=== PATIENT | female | born 1935 | race Caucasian/White ===

== ENCOUNTER 2016-11-30 08:00 | Outpatient (CLI) | payer MEDICARE, OTHER | END 2016-11-30 08:01 | disposition home or self-care (01) | DX: R10.9 Unspecified abdominal pain (principal) ==

== ENCOUNTER 2017-03-06 15:01 | Outpatient (CLI) | payer MEDICARE, OTHER | END 2017-03-06 15:02 | disposition home or self-care (01) | LOC: SC 15:01 | PROVIDERS: ATTEND Internal Medicine Pulmonary Disease | DX: G47.33 Obstructive sleep apnea (adult) (pediatric) (principal) | CPT/HCPCS: 99213; G0463; 99212 ==

== ENCOUNTER 2017-07-13 14:08 | Outpatient (CLI) | payer MEDICARE, OTHER | END 2017-07-13 14:09 | disposition home or self-care (01) | LOC: SC 14:08 | PROVIDERS: ATTEND Specialist | DX: G47.33 Obstructive sleep apnea (adult) (pediatric) (principal); R53.83 Other fatigue; G47.10 Hypersomnia, unspecified | CPT/HCPCS: 99213; G0463; 99212 ==

== ENCOUNTER 2017-07-24 10:05 | Outpatient (CLI) | payer MEDICARE, OTHER | END 2017-07-24 10:06 | disposition home or self-care (01) | LOC: SC 10:05 | PROVIDERS: ATTEND Internal Medicine Pulmonary Disease | DX: G47.33 Obstructive sleep apnea (adult) (pediatric) (principal) | CPT/HCPCS: 99213; G0463; 99212 ==

== ENCOUNTER 2019-01-14 13:00 | Outpatient (CLI) | payer MEDICARE, OTHER | END 2019-01-14 13:01 | disposition home or self-care (01) | LOC: SC 13:00 | PROVIDERS: ATTEND Internal Medicine Pulmonary Disease | DX: G47.33 Obstructive sleep apnea (adult) (pediatric) (principal) | CPT/HCPCS: 99213; G0463; 99212 ==

== ENCOUNTER 2019-03-04 11:34 | Outpatient (CLI) | payer MEDICARE, OTHER | END 2019-03-04 11:35 | disposition home or self-care (01) | LOC: SC 11:34 | PROVIDERS: ATTEND Internal Medicine Pulmonary Disease | DX: Z53.9 Procedure and treatment not carried out, unspecified reason (principal) ==

== ENCOUNTER 2019-03-18 | Outpatient (CLI) | payer MEDICARE, OTHER | END 2019-03-18 09:43 | disposition home or self-care (01) | DX: G47.33 Obstructive sleep apnea (adult) (pediatric) (principal) | CPT/HCPCS: 99213; G0463; 99212 ==

== ENCOUNTER 2019-07-09 11:18 | Outpatient (CLI) | payer MEDICARE, OTHER ==
--- NOTE | 2019-07-09 13:48 | Mammography Report ---
Reason: ROUTINE MAMMO Procedure Date: 07/09/2019 Accession Number: [id number] / [id number] Procedure: MGN - Screening Mammo Dig Bilat CPT Code: Final Report FULL RESULT: EXAM: Screening Mammo Dig Bilat DATE: 07/09/2019 11:40 AM CLINICAL HISTORY: The patient is an asymptomatic 83-year-old female presenting for screening mammography. No reported personal nor family history of breast cancer. TECHNIQUE: (B) - Bilateral CC and MLO views were obtained. COMPARISON: 01/06/2009 PARENCHYMAL PATTERN: (D) - The breasts demonstrate heterogeneously dense fibroglandular parenchyma bilaterally. FINDINGS: Pattern of asymmetry is stable given positional variation. Progressive vascular calcifications noted. There are no suspicious masses, calcifications, or areas of distortion. IMPRESSION: Benign findings. BI-RADS category 2. RECOMMENDATION: (ANNUAL) - Recommend routine annual screening mammography. BI-RADS CATEGORY: (2) - Benign Findings. STANDARD QUALIFYING STATEMENTS: 1. This examination was not reviewed with the aid of Computer-Aided Detection (CAD). 2. A negative or benign imaging report should not preclude biopsy if clinically suspicious findings are present. 3. Dense breasts may obscure an underlying neoplasm.
== END 2019-07-09 11:19 | disposition home or self-care (01) ==
LOC: DI.N 11:18
DX: Z12.31 Encounter for screening mammogram for malignant neoplasm of breast (principal)
CPT/HCPCS: 77067

== ENCOUNTER 2019-07-09 13:17 | Outpatient (CLI) | payer MEDICARE, OTHER ==
--- NOTE | 2019-07-10 09:21 | DEXA Report ---
Reason: OSTEOPOROSIS Procedure Date: 07/09/2019 Accession Number: [id number] / [id number] Procedure: DEX - Dexa Spine and/or Hip CPT Code: Final Report FULL RESULT: EXAM: Dexa Spine and/or Hip, Dexa Forearm DATE: 07/09/2019 2:33 PM CLINICAL HISTORY: OSTEOPOROSIS TECHNIQUE: Dual energy x-ray absorptiometry (DXA) was performed on a [employer] System. Regions measured are the AP Spine, femoral neck, and if needed forearm. COMPARISON: None. In accordance with the International Society for Clinical Densitometry (ISCD) guidelines, data from previous exams may be reanalyzed using current recommendations and techniques. This is done to allow a more accurate basis for comparison with the current study. FINDINGS: The data for the lumbar spine is as follows: BMD (g/cm/cm) T-SCORE Z-SCORE REGION L1 0.950 -1.5 0.4 L2 0.964 -2.0 -0.1 L3 1.155 -0.4 1.5 L4 1.500 2.5 4.4 TOTAL 1.141 -0.3 1.5 NOTE: All evaluable vertebrae are used for classification The data for the hip is as follows: BMD (g/cm/cm) T-SCORE Z-SCORE REGION Neck 0.792 -1.8 0.5 TOTAL 0.622 -3.1 -0.9 NOTE: The femoral neck or total proximal femur, whichever is lowest, is used for classification. The data for the left forearm is as follows: BMD (g/cm/cm) T-SCORE Z-SCORE REGION 1/3 0.534 -3.9 -1.0 NOTE: The 33% radius of the nondominant forearm is used for classification. IMPRESSION: THE WHO CLASSIFICATION BASED ON THE INTERNATIONAL REFERENCE STANDARD IS OSTEOPOROSIS, REFERENCE HIP AND FOREARM RESULTS. THE FRACTURE RISK IS HIGH. RECOMMENDATION: Patients with diagnosis of osteoporosis or osteopenia should have regular bone mineral density assessment. For those eligible for Medicare, routine testing is allowed once every 2 years. Testing frequency can be increased for patients who have rapidly progressing disease or for those who are receiving medical therapy to restore bone mass. COMMENT: World Health Organization (WHO) definitions for osteoporosis and osteopenia: NORMAL BMD: T-score at -1.0 or higher, fracture risk is low OSTEOPENIA BMD: T-score between -1.0 and -2.5, fracture risk is increased. OSTEOPOROSIS BMD: T-score at -2.5 or lower, fracture risk is high. National Osteoporosis Foundation recommends: 1. Obtain adequate dietary calcium (at least 1200 mg per day) and vitamin D (400-800 international units per day). 2. Participate, as appropriate, in regular weightbearing and muscle-strengthening exercise. 3. Avoid tobacco use and reduce alcohol and caffeine intake. 4. For more detailed information see the website at www.NOF.org.
--- NOTE | 2019-07-10 09:21 | DEXA Report ---
Reason: Osteoporosis Procedure Date: 07/09/2019 Accession Number: [id number] / [id number] Procedure: DEX - Dexa Forearm CPT Code: Final Report FULL RESULT: EXAM: Dexa Spine and/or Hip, Dexa Forearm DATE: 07/09/2019 2:33 PM CLINICAL HISTORY: OSTEOPOROSIS TECHNIQUE: Dual energy x-ray absorptiometry (DXA) was performed on a [facility]. Regions measured are the AP Spine, femoral neck, and if needed forearm. COMPARISON: None. In accordance with the International Society for Clinical Densitometry (ISCD) guidelines, data from previous exams may be reanalyzed using current recommendations and techniques. This is done to allow a more accurate basis for comparison with the current study. FINDINGS: The data for the lumbar spine is as follows: BMD (g/cm/cm) T-SCORE Z-SCORE REGION L1 0.950 -1.5 0.4 L2 0.964 -2.0 -0.1 L3 1.155 -0.4 1.5 L4 1.500 2.5 4.4 TOTAL 1.141 -0.3 1.5 NOTE: All evaluable vertebrae are used for classification The data for the hip is as follows: BMD (g/cm/cm) T-SCORE Z-SCORE REGION Neck 0.792 -1.8 0.5 TOTAL 0.622 -3.1 -0.9 NOTE: The femoral neck or total proximal femur, whichever is lowest, is used for classification. The data for the left forearm is as follows: BMD (g/cm/cm) T-SCORE Z-SCORE REGION 1/3 0.534 -3.9 -1.0 NOTE: The 33% radius of the nondominant forearm is used for classification. IMPRESSION: THE WHO CLASSIFICATION BASED ON THE INTERNATIONAL REFERENCE STANDARD IS OSTEOPOROSIS, REFERENCE HIP AND FOREARM RESULTS. THE FRACTURE RISK IS HIGH. RECOMMENDATION: Patients with diagnosis of osteoporosis or osteopenia should have regular bone mineral density assessment. For those eligible for Medicare, routine testing is allowed once every 2 years. Testing frequency can be increased for patients who have rapidly progressing disease or for those who are receiving medical therapy to restore bone mass. COMMENT: World Health Organization (WHO) definitions for osteoporosis and osteopenia: NORMAL BMD: T-score at -1.0 or higher, fracture risk is low OSTEOPENIA BMD: T-score between -1.0 and -2.5, fracture risk is increased. OSTEOPOROSIS BMD: T-score at -2.5 or lower, fracture risk is high. National Osteoporosis Foundation recommends: 1. Obtain adequate dietary calcium (at least 1200 mg per day) and vitamin D (400-800 international units per day). 2. Participate, as appropriate, in regular weightbearing and muscle-strengthening exercise. 3. Avoid tobacco use and reduce alcohol and caffeine intake. 4. For more detailed information see the website at www.NOF.org.
== END 2019-07-09 13:18 | disposition home or self-care (01) ==
LOC: DI 13:17
PROVIDERS: ATTEND Physician Assistant Medical
DX: M81.0 Age-related osteoporosis without current pathological fracture (principal)
CPT/HCPCS: 77080; 77081

== ENCOUNTER 2020-03-17 14:05 | Outpatient (CLI) | payer MEDICARE, OTHER ==
--- NOTE | 2020-03-17 14:45 | SLEEP CARE CONSULTATION ---
Information from patient questionnaire entered by Rosie Christy. I have reviewed and concur with the information entered by Rosie Christy. This document represents the service I personally performed and the decisions made by me, Daniel Marquis MD, [facility]. History of Present Illness Service Date and Time: 03/17/2020 1405 Previous diagnosis: Mild, Obstructive Sleep Apnea-Hypopnea Syndrome AHI: 5.6 Reason for follow up: annual Equipment type: CPAP Last cushion change: HPI: Mrs. Devi returned today for an annual follow up of nasal CPAP the [facility]: Yes [facility] [place], [place] Type of Sleep Study: Home sleep study CPAP Compliance Data - Data Reviewed with Patient Average duration of nightly device use: 6h 26m Compliance rate %: 93.9 Current pressure setting (cmH2O): 4-6 Humidity settin Heated hose settin Average residual AHI: 4.7 Average large leak: 56s Subjective Initial [place] Sleepiness Scale score: 8 Allergies and Home Medications Drug allergies reviewed: Yes Home medication list reviewed: Yes Review of Systems Review of systems same as previous: Yes Impression and Plan 1. Obstructive Sleep Apnea-Hypopnea Syndrome, severe (AHI was 50), with the patient doing well on the nasal CPAP therapy. She continues to have excellent c ompliance and significant clinical improvement. The current pressure appears effective and comfortable. Overall, she is very satisfied with treatment and plans to continue with it long-term. For her nasal congestion, I recommend turning up the heated humidifier. PLAN: 1. Continue with autoCPAP set at 4 6 cmH2O. 2. Try the new ResMed N30i mask. 3. Use the heated humidifier to relieve nasal congestion. 3. Return in one year for follow up or earlier if there is any problem with the treatment. Visit Type: In Office Time Spent with Patient (minutes): 15 Provider Statement: I spent 100% of the Face to Face Visit with the patient with greater than 50% spent counseling the patient and coordination of care.
== END 2020-03-17 14:06 | disposition home or self-care (01) ==
LOC: SC 14:05
PROVIDERS: ATTEND Internal Medicine Pulmonary Disease
DX: G47.33 Obstructive sleep apnea (adult) (pediatric) (principal)
CPT/HCPCS: 99213; G0463; 99212

== ENCOUNTER 2021-04-05 11:09 | Outpatient (CLI) | payer MEDICARE, OTHER ==
--- NOTE | 2021-04-05 12:52 | SLEEP CARE CONSULTATION ---
Information from patient questionnaire entered by Xuan Lopez. I have reviewed and concur with the information entered by Xuan Lopez. This document represents the service I personally performed and the decisions made by me, Daniel Marquis MD, [facility]. History of Present Illness Service Date and Time: 04/05/2021 1109 Previous diagnosis: Mild, Obstructive Sleep Apnea-Hypopnea Syndrome AHI: 5.6 (in 2018) Reason for follow up: annual (last seen 03/2020) Equipment type: CPAP Equipment obtained from: [employer] Mask style: Nasal Mask brand: Respironics (Wisp) Prior sleep studies: Yes Year and Where: 2018 - [facility]; 2005 - in [facility] additional information: HPI: Mrs. Devi returned today for an annual follow up of nasal CPAP therapy. She also has questions regarding the recall. She was diagnosed to have mild obstructive sleep apnea-hypopnea syndrome (AHI was 5.6 by a home sleep apnea test). The patient wears with a Respironics DreamWear nasal cushion mask. She continues to use the device nightly and all through the night. She complained of nasal congestion. Her heated humidifier is set at zero. She thinks that the pressure of 4 6 cmH2O is comfortable. On the CPAP therapy she notices improvement in her sleep quality, and that she wakes up feeling fresher in the morning and more awake/alert during the day. The [place] Sleepiness Scale score 8. Her notices no snore at all. The average residual AHI is 3.1; and average time in large leak per day is 9 seconds. The 90th percentile pressure is 6.0 cmH2O. CPAP Compliance Data - Data Reviewed with Patient Average duration of nightly device use: 6 hr 59 min Compliance rate %: 93.3 (180 days) Current pressure setting (cmH2O): 4-6 Humidity settin Heated hose settin Average residual AHI: 3.1 Average large leak: 9 sec Subjective Patient concerns: reports: nasal congestion, dry mouth, nose, throat, other (headache) Initial [place] Sleepiness Scale score: 8 (in 2014) Current [place] Sleepiness Scale score: 10 Allergies and Home Medications Drug allergies reviewed: Yes Home medication list reviewed: Yes Review of Systems Review of systems same as previous: Yes Physical Exam Weight: 140 lb Impression and Plan 1. Obstructive Sleep Apnea-Hypopnea Syndrome, severe (AHI was 5.6), with the patient doing well on the nasal CPAP therapy. She continues to have excellent compliance and significant clinical improvement. The current pressure appears effective and comfortable. Overall, she is very satisfied with treatment and plans to continue with it long-term. Rosita said she called Medicare and was told that it will pay for a new machine to replace the DreamStation Auto that she is using. PLAN: 1. Continue with autoCPAP set at 4 6 cmH2O. 2. Prescription made for a ResMed device. 3. Return for follow up after one month of using the CPAP. Visit Type: In Office Time Spent with Patient (minutes): 15 Provider Statement: I spent 100% of the Face to Face Visit with the patient with greater than 50% spent counseling the patient and coordination of care.
== END 2021-04-05 11:10 | disposition home or self-care (01) ==
LOC: SC 11:09
PROVIDERS: ATTEND Internal Medicine Pulmonary Disease
DX: G47.33 Obstructive sleep apnea (adult) (pediatric) (principal)
CPT/HCPCS: 99212; G0463

== ENCOUNTER 2021-06-04 12:44 | Outpatient (CLI) | payer MEDICARE, OTHER ==
--- NOTE | 2021-06-04 13:57 | XRAY Report ---
PROCEDURE: Chest 2 View X-Ray INDICATIONS: COUGH TECHNIQUE: 2 view(s) of the chest. COMPARISON: January 26, 2018. FINDINGS: SUPPORT DEVICES: None. LUNG/PLEURA: Biapical pleural thickening/scarring. Coarsened interstitial markings. Faint density in the right lower lung zone, concerning for pneumonic infiltrate or atelectasis. No pleural effusion or space-occupying pneumothorax. MEDIASTINUM: Retrocardiac density with air-fluid level, compatible with large head hernia. BONES/SOFT TISSUES: No acute abnormality. IMPRESSION: 1.Faint density in the right lower lung zone, concerning for pneumonic infiltrate or atelectasis. Reviewed by: Lalit May MD on 06/04/2021 1:56 PM PDT Approved by: Lalit May MD on 06/04/2021 1:56 PM PDT Station ID: [id number]
== END 2021-06-04 12:45 | disposition home or self-care (01) ==
LOC: DI.N 12:44
PROVIDERS: ATTEND Physician Assistant Medical
DX: R91.8 Other nonspecific abnormal finding of lung field (principal)

== ENCOUNTER 2021-07-05 12:38 | Outpatient (CLI) | payer MEDICARE, OTHER ==
[2021-07-05 13:28] VITALS: BP 140/74
--- NOTE | 2021-07-05 13:28 | SLEEP CARE CONSULTATION ---
Information from patient questionnaire entered by Jacquelyn Coy MA. I have reviewed and concur with the information entered by Jacquelyn Coy MA. This document represents the service I personally performed and the decisions made by me, Daniel Marquis MD, [facility]. History of Present Illness Service Date and Time: 07/05/2021 1238 Previous diagnosis: Mild, Obstructive Sleep Apnea-Hypopnea Syndrome AHI: 5.6 (in 2018) Reason for follow up: first compliance (05/21/2021 set up date) Equipment type: CPAP Equipment obtained from: [employer] Mask style: Nasal (wisp) Prior sleep studies: Yes Year and Where: 2018 - [facility]; 2004 - in [place], [place] HPI additional information: Mrs. Devi returned today for a follow up of nasal CPAP therapy. She also has questions regarding the recall. She was diagnosed to have mild obstructive sleep apnea-hypopnea syndrome (AHI was 5.6 by a home sleep apnea test). The patient recently acquired a new ResMed AirSense 10 from [employer]. She wears with a Respironics DreamWear nasal cushion mask. She uses the device nightly and all through the night. The compliance data show usage in 30 out of the past 30 nights, averaging 6.1 hours a night. The residual AHI is 0.8 and average air leak is 3.9 L/minute. She thinks that the pressure of 4 6 cmH2O is comfortable. On the CPAP therapy she notices improvement in her sleep quality, and that she wakes up feeling fresher in the morning and more awake/alert during the day. The [place] Sleepiness Scale score 11. Her notices no snore at all. Sleep Study - Results Prior sleep studies: Yes Year and Where: 2018 - [facility]; 2004 - in [place], [place] Subjective Patient concerns: reports: dry mouth, nose, throat Initial [place] Sleepiness Scale score: 8 (in 2014) Current [place] Sleepiness Scale score: 11 (in 2020) Allergies and Home Medications Drug allergies reviewed: Yes Home medication list reviewed: Yes Review of Systems Review of systems same as previous: Yes Physical Exam Vital signs obtained and entered by: RIDDHI CHRISTOPHER Blood Pressure: 140/74 (left) Cuff size: wrist Heart Rate: 86 O2 Saturation: 94 (with mask) Height: 5 ft 7 in Weight: 297 lb 9.985 oz (with winter clothes) Body Mass Index: 46.6 BMI Classification: Morbidly Obese Impression and Plan 1. Obstructive Sleep Apnea-Hypopnea Syndrome, mild (AHI was 5.6), with the patient doing well on her new machine. She continues to have excellent compliance and significant clinical improvement. The current pressure appears effective and comfortable. Overall, she is very satisfied with treatment and plans to continue with it long-term. PLAN: 1. Continue with autoCPAP set at 4 6 cmH2O. 2. Return for follow up after one month of using the CPAP. This visit is time-based and I spent 15 minutes with the patient and more than 50% of the time was spent counseling the patient. Follow up with Sleep Care in: 1 year Time Spent with Patient (minutes): 15
== END 2021-07-05 12:39 | disposition home or self-care (01) ==
LOC: SC 12:38
PROVIDERS: ATTEND Internal Medicine Pulmonary Disease
DX: G47.33 Obstructive sleep apnea (adult) (pediatric) (principal); E66.01 Morbid (severe) obesity due to excess calories; Z68.42 Body mass index [BMI] 45.0-49.9, adult
CPT/HCPCS: 99212; G0463

== ENCOUNTER 2021-10-25 12:20 | Outpatient (CLI) | payer MEDICARE, OTHER ==
--- NOTE | 2021-10-25 13:32 | DEXA Report ---
PROCEDURE: Dexa Spine and/or Hip INDICATIONS: OSTEOPOROSIS TECHNIQUE: Dual energy x-ray absorptiometry (DXA) was performed on a [employer] System. Regions measur ed are the AP Spine, femoral neck, and if needed forearm. COMPARISON: 07/09/2019. FINDINGS: Forearm was evaluated due to excessive spinal densities. Lumbar Spine: Bone Mineral Density 1.190 g/cm/cm,T score 0.1. There is interval 4.3% increase in total lumbar sp ine bone mineral density. Right Hip: Bone Mineral Density 0.684 g/cm/cm,T score -2.6. There is interval 10% increase in total right hip b one mineral density. Right Femoral Neck: Bone Mineral Density 0.708 g/cm/cm, T score -2.4. Left forearm: Bone Mineral Density 0.490 g/cm/cm, T score -4.4. There is interval 8.2% decrease in left forearm bon e mineral density. (T score greater or equal to -1.0: NORMAL) (T score from -1.1 to -2.4: OSTEOPENIA) (T score less than or equal to -2.5 to: OSTEOPOROSIS) Impression: Osteoporosis. Patients with diagnosis of osteoporosis or osteopenia should have regular bone mineral density assess ment. For those eligible for Medicare, routine testing is allowed once every 2 years. Testing frequ ency can be increased for patients who have rapidly progressing disease or for those who are receivin g medical therapy to restore bone mass. Reviewed by: Cornel Mcghee MD on 10/25/2021 1:30 PM PDT Approved by: Cornel Mcghee MD on 10/25/2021 1:30 PM PDT Station ID: [id number]
== END 2021-10-25 12:21 | disposition home or self-care (01) ==
LOC: DI 12:20
PROVIDERS: ATTEND Physician Assistant Medical
DX: M81.0 Age-related osteoporosis without current pathological fracture (principal); R93.7 Abnormal findings on diagnostic imaging of other parts of musculoskeletal system

== ENCOUNTER 2022-01-24 11:00 | Outpatient (CLI) | payer MEDICARE, OTHER | END 2022-01-24 23:59 | disposition home or self-care (01) | LOC: LAB.N 11:00 | PROVIDERS: ATTEND Physician Assistant Medical | DX: R19.7 Diarrhea, unspecified (principal) | CPT/HCPCS: 87045; 87046; 87177; 87328; 87427; 87493 ==

== ENCOUNTER 2022-01-24 14:05 | Outpatient (CLI) | payer MEDICARE, OTHER | END 2022-01-24 14:06 | disposition home or self-care (01) | LOC: LAB.R 14:05 | PROVIDERS: ATTEND Physician Assistant Medical | DX: R19.7 Diarrhea, unspecified (principal) ==

== ENCOUNTER 2022-01-25 17:35 | Outpatient (CLI) | payer MEDICARE, OTHER ==
[2022-01-25 20:55] LABS: BASOPHILS # (AUTO) 0.1 10^3/uL (0.0-0.1); BASOPHILS % (AUTO) 0.7 %; EOSINOPHILS # (AUTO) 0.4 10^3/uL (0.0-0.7); EOSINOPHILS % (AUTO) 2.3 %; HCT - HEMATOCRIT 36.6 % (37.0-47.0); HGB - HEMOGLOBIN 12.1 g/dL (12.0-16.0); LYMPHOCYTES # (AUTO) 2.2 10^3/uL (1.5-3.5); LYMPHOCYTES % (AUTO) 11.8 %; MEAN CORPUSCULAR HEMOGLOBIN 30.9 pg (27.0-31.0); MEAN CORPUSCULAR HGB CONC 33.1 g/dL (32.0-36.0); MEAN CORPUSCULAR VOLUME 93.6 fL (81.0-99.0); MEAN PLATELET VOLUME 9.9 fL (7.9-10.8); MONOCYTES # (AUTO) 1.3 10^3/uL (0.0-1.0); MONOCYTES % (AUTO) 6.8 %; NEUTROPHILS # (AUTO) 14.8 10^3/uL (1.5-6.6); NEUTROPHILS % (AUTO) 77.9 %; PLT - PLATELET COUNT 288 10^3/uL (130-450); RED BLOOD COUNT 3.91 10^6/uL (4.20-5.40)
[2022-01-25 21:09] LABS: % IRON SATURATION 15 % (20-50); ALBUMIN 4.1 g/dL (3.2-5.5); ALBUMIN/GLOBULIN RATIO 0.9 (1.0-2.2); ALKALINE PHOSPHATASE 27 IU/L (42-121); ALT ALANINE AMINOTRANSFERASE 19 IU/L (10-60); AST ASPARTATE AMINOTRANSFERASE 22 IU/L (10-42); BILIRUBIN,TOTAL 0.6 mg/dL (0.2-1.0); BUN - BLOOD UREA NITROGEN 20 mg/dL (6-20); CARBON DIOXIDE - CO2 26 mmol/L (21-32); CHLORIDE 95 mmol/L (101-111); CREATININE 0.7 mg/dL (0.4-1.0); GFR - MDRD 80 (>89); GLUCOSE 125 mg/dL (70-100); IRON 46 ug/dL (28-170); POTASSIUM 4.5 mmol/L (3.5-5.0); SODIUM 132 mmol/L (135-145); TOTAL IRON BINDING CAPACITY 300 ug/dL (250-450); TOTAL PROTEIN 8.8 g/dL (6.7-8.2); TRANSFERRIN 214 mg/dL (192-382)
[2022-01-25 21:23] LABS: CRP - C-REACTIVE PROTEIN < 1.0 mg/dL (0-1.0)
== END 2022-01-25 17:36 | disposition home or self-care (01) ==
LOC: LAB.N 17:35
PROVIDERS: ATTEND Physician Assistant Medical
DX: D64.9 Anemia, unspecified (principal); R19.7 Diarrhea, unspecified; R06.09 Other forms of dyspnea
CPT/HCPCS: 36415; 80053; 82728; 83540; 83880; 84466; 85025; 85651; 86140

== ENCOUNTER 2022-01-25 17:41 | Outpatient (CLI) | payer MEDICARE, OTHER ==
--- NOTE | 2022-01-25 19:07 | XRAY Report ---
PROCEDURE: Chest 2 View X-Ray INDICATIONS: DYSPNEA ON EXERTION TECHNIQUE: 2 views of the chest. COMPARISON: Chest radiographs 06/04/2021. FINDINGS: Surgical changes and devices: None. Lungs and pleura: Large air-filled hiatal hernia is seen projecting over the hardware. Diffuse bilate ral interstitial opacities are seen bilaterally. The costophrenic angles are not well-defined, and Mediastinum: Mediastinal contours are normal. Heart size is normal. Bones and chest wall: No suspicious bony abnormalities. Soft tissues appear unremarkable. Small pl eural effusions could be present. Generalized osteopenia with mild exaggerated kyphosis. Severe degen erative changes are seen in the shoulders IMPRESSION: 1.Diffuse interstitial prominence in both lungs may represent edema, chronic interstitial lung diseas e, or possibly an atypical or viral infection. 2.Questionable trace pleural effusions. 3.Large air-filled hiatal hernia. Reviewed by: Rell Lang MD on 01/25/2022 7:05 PM PDT Approved by: Rell Lang MD on 01/25/2022 7:05 PM PDT Station ID: [id number]
== END 2022-01-25 17:42 | disposition home or self-care (01) ==
LOC: DI.N 17:41
PROVIDERS: ATTEND Physician Assistant Medical
DX: R91.8 Other nonspecific abnormal finding of lung field (principal); R06.09 Other forms of dyspnea; K44.9 Diaphragmatic hernia without obstruction or gangrene; D64.9 Anemia, unspecified; R19.7 Diarrhea, unspecified
CPT/HCPCS: 36415; 80053; 82728; 83540; 83880; 84466; 85025; 85651; 86140

== ENCOUNTER 2022-02-10 13:58 | Outpatient (CLI) | payer MEDICARE, OTHER ==
[2022-02-10 14:17] LABS: BASOPHILS # (AUTO) 0.1 10^3/uL (0.0-0.1); BASOPHILS % (AUTO) 0.8 %; EOSINOPHILS # (AUTO) 0.4 10^3/uL (0.0-0.7); EOSINOPHILS % (AUTO) 2.6 %; HGB - HEMOGLOBIN 12.1 g/dL (12.0-16.0); LYMPHOCYTES # (AUTO) 2.5 10^3/uL (1.5-3.5); LYMPHOCYTES % (AUTO) 15.5 %; MEAN CORPUSCULAR HEMOGLOBIN 31.3 pg (27.0-31.0); MEAN CORPUSCULAR HGB CONC 33.6 g/dL (32.0-36.0); MEAN CORPUSCULAR VOLUME 93.3 fL (81.0-99.0); MEAN PLATELET VOLUME 8.8 fL (7.9-10.8); MONOCYTES # (AUTO) 1.5 10^3/uL (0.0-1.0); NEUTROPHILS # (AUTO) 11.7 10^3/uL (1.5-6.6); NEUTROPHILS % (AUTO) 71.4 %; PLT - PLATELET COUNT 277 10^3/uL (130-450); RED BLOOD COUNT 3.86 10^6/uL (4.20-5.40); RED CELL DISTRIBUTION WIDTH 14.5 % (12.0-15.0); WHITE BLOOD COUNT 16.4 x10^3/uL (4.8-10.8)
--- NOTE | 2022-02-10 17:52 | XRAY Report ---
PROCEDURE: Chest 2 View X-Ray INDICATIONS: PNEUMONIA TECHNIQUE: 2 view(s) of the chest. COMPARISON: 02/24/2022 FINDINGS: Surgical changes and devices: None. Lungs and pleura: No pleural effusions or pneumothorax. Diffuse interstitial reticular pattern to parish th lungs noted. Diffuse chronic interstitial changes. Mediastinum: Mediastinal contours are normal. Heart size is normal. Large hiatal hernia with air-f luid level noted Bones and chest wall: Generalized decreased osseous mineralization present. Degenerative changes note d in both glenohumeral joints. IMPRESSION: 1. Stable diffuse reticular interstitial pattern noted. Differential considerations include pulmonary edema, interstitial pneumonitis, unchanged from the prior 2. Large hiatal hernia and degenerative osteoarthritis. 3. Osteopenia Reviewed by: Fernando Rivas MD on 02/10/2022 4:51 PM AKDT Approved by: Fernando Rivas MD on 02/10/2022 4:51 PM AKDT Station ID: [id number]
[2022-02-10 20:29] LABS: ESTIMATED AVERAGE GLUCOSE 171 mg/dL (70-100); HEMOGLOBIN A1c% 7.6 % (4.27-6.07)
== END 2022-02-10 13:59 | disposition home or self-care (01) ==
LOC: DI 13:58
PROVIDERS: ATTEND Nurse Practitioner
DX: J18.9 Pneumonia, unspecified organism (principal); E11.9 Type 2 diabetes mellitus without complications; K44.9 Diaphragmatic hernia without obstruction or gangrene; M19.012 Primary osteoarthritis, left shoulder; M19.011 Primary osteoarthritis, right shoulder; M85.80 Other specified disorders of bone density and structure, unspecified site
CPT/HCPCS: 36415; 83036; 85025

== ENCOUNTER 2022-07-18 13:40 | Outpatient (CLI) | payer MEDICARE, OTHER ==
[2022-07-18 19:22] VITALS: BP 140/90
--- NOTE | 2022-07-18 19:22 | SLEEP CARE CONSULTATION ---
Information from patient questionnaire entered by Jose Landers. I have reviewed and concur with the information entered by Jose Landers. This document represents the service I personally performed and the decisions made by me, Daniel Marquis MD, [facility]. History of Present Illness Service Date and Time: 07/18/2022 1340 Previous diagnosis: Mild, Obstructive Sleep Apnea-Hypopnea Syndrome AHI: 5.6 (in 2019) Reason for follow up: annual (LAST SEEN 06/2021) Equipment type: CPAP (RESMED) Equipment obtained from: [employer] Mask style: Nasal (wisp) Prior sleep studies: Yes [facility]; [facility] - in [facility] additional information: Mrs. Devi returned today for an annual follow up of nasal CPAP therapy. She also has questions regarding the recall. She was diagnosed to have mild obstructive sleep apnea-hypopnea syndrome (AHI was 5.6 by a home sleep apnea test). The patient recently acquired a new ResMed AirSense 10 from [employer]. She wears a Respironics Wisp nasal mask. She uses the device nightly and all through the night. The compliance data show usage in 180 out of the past 180 nights, averaging 6.6 hours a night. The residual AHI is 0.9 and average air leak is 5.8 L/minute. She thinks that the pressure of 4 6 cmH2O is comfortable. On the CPAP therapy she notices improvement in her sleep quality, and that she wakes up feeling fresher in the morning and more awake/alert during the day. The [place] Sleepiness Scale score 15. Her notices no snore at all. She is now using oxygen at night for pulmonary fibrosis. Sleep Study - Results Prior sleep studies: Yes Year and Where[facility]; [facility] - in [place], [place] Subjective Initial [place] Sleepiness Scale score: 8 (in 2014) Allergies and Home Medications Drug allergies reviewed: Yes Home medication list reviewed: Yes Review of Systems Review of systems same as previous: Yes Physical Exam Vital signs obtained and entered by: JOSE Napier MA Blood Pressure: 140/90 (LEFT ARM) Cuff size: regular Heart Rate: 117 O2 Saturation: 95 Height: 5 ft 7 in Weight: 141 lb 9.6 oz Body Mass Index: 22.1 BMI Classification: Normal Impression and Plan 1. Obstructive Sleep Apnea-Hypopnea Syndrome, mild (AHI was 5.6), with the patient doing well on her new machine. She continues to have excellent compliance and significant clinical improvement. The current pressure appears effective and comfortable. Overall, she is very satisfied with treatment and plans to continue with it long-term. PLAN: 1. Continue with autoCPAP set at 4 6 cmH2O + oxygen at night. 2. Return for follow up in a year or earlier if there is any problem. Continue with device pressure at (cmH2O): 4 - 6 cmH20 Follow up with Sleep Care in: 1 year Time Spent with Patient (minutes): 15
== END 2022-07-18 13:41 | disposition home or self-care (01) ==
LOC: SC 13:40
PROVIDERS: ATTEND Internal Medicine Pulmonary Disease
DX: G47.33 Obstructive sleep apnea (adult) (pediatric) (principal)
CPT/HCPCS: 99213; G0463; 99212

== ENCOUNTER 2022-10-30 12:26 | Emergency (ER) | payer MEDICARE, OTHER ==
--- OUTSIDE RECORDS SUMMARY | 2022-10-30 13:01 | EXTERNAL MEDICAL SUMMARY RPT | Continuity of Care Document ---
:1935 Author Organization [facility] Address [address] [place] [address] Phone Care Team Providers Name Role Phone Unavailable Unavailable Unavailable Yaima Bustos Unavailable Unavailable Allergies and Intolerances date description facility type (no date) Mild [facility] (unknown) (no date) Odfyuhc-[id number] Reductase Inhibitor [facility] (unknown) (no date) alendronate sodium [facility] (unknown) (no date) ezetimibe [facility] (unknown) (no date) omeprazole [facility] (unknown) (no date) tramadol [facility] (unknown) Encounters No information. Functional Status No information. Immunizations No information. Medications date description facility 2022-09-26 00:00 Glimepiride [facility] 2022-09-26 00:00 Pantoprazole [facility] 2022-08-24 00:00 Hydrocodone-Acetaminophen [facility] 2022-10-26 00:00 Metoprolol Succinate [facility] 2022-10-26 00:00 Metoprolol Ta-Hydrochlorothiaz [facility] 2022-09-26 00:00 Alendronate [facility] 2022-10-26 00[facility]22[facility]:00 Losartan [facility] Problems date description facility 2022-09-15 00:00 [facility]ra[facility]ricular [facility] 2022-09-26 00:00 Type 2 diabetes mellitus without compli cation, [facility] 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 insulin use 2022-09-28 00:00 Chest pain [facility] Procedures date description facility 2022-09-28 00:00 Single photon emission computed tomograp [facility] (SPECT) resting and stress myocardial pe rf 2022-09-28 00:00 X-ray of chest, single view [facility] 2022-09-28 00:00 Complete Doppler echocardiography [facility] 2022-09-28 00:00 CT chest w [facility] Results/Labs test date author facility value unit interpret ation Result panel 1 (unknown) (no date[facility]) Result panel 2 (unknown) (no date) (unknown[facility] Result panel 3 (unknown) (no date) (unknown[facility] Result panel 4 (unknown) (no date) (unknown[facility] Result panel 5 (unknown) (no date) (unknown[facility] Result panel 6 (unknown) (no date) (unknown[facility] Result panel 7 (unknown) (no date) (unknown[facility] Result panel 8 (unknown) (no date) (unknown[facility] Result panel 9 (unknown) (no date) (unknown[facility] Result panel 10 (unknown) (no date) (unknown[facility] Result panel 11 (unknown) (no date) (unknown[facility] Result panel 12 (unknown) (no date) (unknown[facility] Result panel 13 (unknown) (no date) (unknown[facility] Result panel 14 (unknown) (no date) (unknown[facility] Result panel 15 (unknown) (no date) (unknown[facility] Result panel 16 (unknown) (no date) (unknown[facility] Result panel 17 (unknown) (no date) (unknown[facility] Result panel 18 (unknown) (no date) (unknown[facility] Result panel 19 (unknown) (no date) (unknown[facility]) Result panel 20 (unknown) (no date) (unknown[facility] Result panel 21 (unknown) (no date) (unknown[facility]) Result panel 22 (unknown) (no date) (unknown[facility] Result panel 23 (unknown) (no date) (unknown[facility] Result panel 24 (unknown) (no date) (unknown[facility]) Result panel 25 (unknown) (no date) (unknown[facility]) Result panel 26 (unknown) (no date) (unknown[facility] Result panel 27 (unknown) (no date) (unknown[facility]) Result panel 28 (unknown) (no date) (unknown[facility] Result panel 29 (unknown) (no date) (unknown[facility]) Result panel 30 (unknown) (no date) (unknown[facility] Result panel 31 (unknown) (no date) (unknown[facility]) Result panel 32 (unknown) (no date) (unknown[facility] Result panel 33 (unknown) (no date) (unknown[facility] Result panel 34 (unknown) (no date) (unknown[facility]) Result panel 35 (unknown) (no date) (unknown[facility] Result panel 36 (unknown) (no date) (unknown[facility]) Result panel 37 (unknown) (no date) (unknown[facility]) Result panel 38 (unknown) (no date) (unknown[facility] Result panel 39 (unknown) (no date) (unknown[facility]) Result panel 40 (unknown) (no date) (unknown[facility]) Result panel 41 (unknown) (no date) (unknown[facility] Result panel 42 (unknown) (no date) (unknown[facility]) Result panel 43 (unknown) (no date) (unknown[facility]) Result panel 44 (unknown) (no date) (unknown[facility]) Result panel 45 (unknown) (no date) (unknown[facility]) Result panel 46 (unknown) (no date) (unknown[facility]) Result panel 47 (unknown) (no date) (unknown[facility]) Result panel 48 (unknown) (no date) (unknown[facility]) Result panel 49 (unknown) (no date) (unknown[facility]) Result panel 50 (unknown) (no date) (unknown[facility]) Result panel 51 (unknown) (no date) (unknown[facility] Result panel 52 (unknown) (no date) (unknown[facility]) Result panel 53 (unknown) (no date) (unknown[facility]) Result panel 54 (unknown) (no date) (unknown[facility] Result panel 55 (unknown) (no date) (unknown[facility]) Result panel 56 (unknown) (no date) (unknown[facility] Result panel 57 (unknown) (no date) (unknown[facility]) Result panel 58 (unknown) (no date) (unknown[facility] Result panel 59 (unknown) (no date) (unknown[facility]) Result panel 60 (unknown) (no date) (unknown[facility] Result panel 61 (unknown) (no date) (unknown[facility]) Result panel 62 (unknown) (no date) (unknown[facility]) Result panel 63 (unknown) (no date) (unknown[facility]) Result panel 64 (unknown) (no date) (unknown[facility]) Result panel 65 (unknown) (no date) (unknown[facility]) Result panel 66 (unknown) (no date) (unknown[facility]) Result panel 67 (unknown) (no date) (unknown[facility]) Result panel 68 (unknown) (no date) (unknown[facility] Result panel 69 (unknown) (no date) (unknown[facility]) Result panel 70 (unknown) (no date) (unknown[facility]) Result panel 71 (unknown) (no date) (unknown[facility]) Result panel 72 (unknown) (no date) (unknown[facility]) Result panel 73 (unknown) (no date) (unknown[facility]) Result panel 74 (unknown) (no date) (unknown[facility]) Result panel 75 (unknown) (no date) (unknown[facility]) Result panel 76 (unknown) (no date) (unknown[facility]) Result panel 77 (unknown) (no date) (unknown[facility]) Result panel 78 (unknown) (no date) (unknown[facility]) Result panel 79 (unknown) (no date) (unknown[facility]) Result panel 80 (unknown) (no date) (unknown[facility]) Result panel 81 (unknown) (no date) (unknown[facility]) Result panel 82 (unknown) (no date) (unknown[facility]) Result panel 83 (unknown) (no date) (unknown[facility]) Result panel 84 (unknown) (no date) (unknown[facility]) Result panel 85 (unknown) (no date) (unknown[facility]) Result panel 86 (unknown) (no date) (unknown[facility] Result panel 87 (unknown) (no date) (unknown[facility]) Result panel 88 (unknown) (no date) (unknown[facility] Result panel 89 (unknown) (no date) (unknown[facility]) Result panel 90 (unknown) (no date) (unknown[facility] Result panel 91 (unknown) (no date) (unknown[facility]) Result panel 92 (unknown) (no date) (unknown[facility] Result panel 93 (unknown) (no date) (unknown[facility]) Result panel 94 (unknown) (no date) (unknown[facility]) Result panel 95 (unknown) (no date) (unknown[facility]) Result panel 96 (unknown) (no date) (unknown[facility]) Result panel 97 (unknown) (no date) (unknown[facility]) Result panel 98 (unknown) (no date) (unknown[facility]) Result panel 99 (unknown) (no date) (unknown[facility]) Result panel 100 (unknown) (no date) (unknown[facility] Result panel 101 (unknown) (no date) (unknown[facility]) Result panel 102 (unknown) (no date) (unknown[facility] Result panel 103 (unknown) (no date) (unknown[facility]) Result panel 104 (unknown) (no date) (unknown[facility]) Result panel 105 (unknown) (no date) (unknown[facility]) Result panel 106 (unknown) (no date) (unknown[facility]) Result panel 107 (unknown) (no date) (unknown[facility]) Result panel 108 (unknown) (no date) (unknown[facility]) Result panel 109 (unknown) (no date) (unknown[facility]) Result panel 110 (unknown) (no date) (unknown[facility]) Result panel 111 (unknown) (no date) (unknown[facility]) Result panel 112 (unknown) (no date) (unknown[facility]) Result panel 113 (unknown) (no date) (unknown[facility]) Result panel 114 (unknown) (no date) (unknown[facility]) Result panel 115 (unknown) (no date) (unknown[facility]) Result panel 116 (unknown) (no date) (unknown[facility]) Result panel 117 (unknown) (no date) (unknown[facility]) Result panel 118 (unknown) (no date) (unknown[facility]) Result panel 119 (unknown) (no date) (unknown[facility]) Result panel 120 (unknown) (no date) (unknown[facility]) Result panel 121 (unknown) (no date) (unknown[facility]) Result panel 122 (unknown) (no date) (unknown[facility]) Result panel 123 (unknown) (no date) (unknown[facility]) Result panel 124 (unknown) (no date) (unknown[facility]) Result panel 125 (unknown) (no date) (unknown[facility]) Result panel 126 (unknown) (no date) (unknown[facility]) Result panel 127 (unknown) (no date) (unknown[facility]) Result panel 128 (unknown) (no date) (unknown[facility]) Result panel 129 (unknown) (no date) (unknown[facility]) Result panel 130 (unknown) (no date) (unknown[facility]) Result panel 131 (unknown) (no date) (unknown[facility]) Result panel 132 (unknown) (no date) (unknown[facility]) Result panel 133 (unknown) (no date) (unknown[facility]) Result panel 134 (unknown) (no date) (unknown[facility]) Result panel 135 (unknown) (no date) (unknown[facility]) Result panel 136 (unknown) (no date) (unknown[facility]) Result panel 137 (unknown) (no date) (unknown[facility]) Result panel 138 (unknown) (no date) (unknown[facility]) Result panel 139 (unknown) (no date) (unknown[facility]) Result panel 140 (unknown) (no date) (unknown[facility]) Result panel 141 (unknown) (no date) (unknown[facility]) Result panel 142 (unknown) (no date) (unknown[facility]) Result panel 143 (unknown) (no date) (unknown[facility]) Result panel 144 (unknown) (no date) (unknown[facility]) Result panel 145 (unknown) (no date) (unknown[facility]) Result panel 146 (unknown) (no date) (unknown[facility]) Result panel 147 (unknown) (no date) (unknown[facility]) Result panel 148 (unknown) (no date) (unknown[facility]) Result panel 149 (unknown) (no date) (unknown[facility]) Result panel 150 (unknown) (no date) (unknown[facility]) Result panel 151 (unknown) (no date) (unknown[facility]) Result panel 152 (unknown) (no date) (unknown[facility]) Result panel 153 (unknown) (no date) (unknown[facility]) Result panel 154 (unknown) (no date) (unknown[facility]) Result panel 155 (unknown) (no date) (unknown) [facility]) Result panel 156 (unknown) (no date) (unknown[facility]) Result panel 157 (unknown) (no date) (unknown) [facility]) Result panel 158 (unknown) (no date) (unknown) [facility]) Result panel 159 (unknown) (no date) (unknown) [facility]) Result panel 160 (unknown) (no date) (unknown) [facility]) Result panel 161 (unknown) (no date) (unknown) [facility]) Result panel 162 (unknown) (no date) (unknown) [facility]) Result panel 163 (unknown) (no date) (unknown) [facility]) Result panel 164 (unknown) (no date) (unknown) [facility]) Result panel 165 (unknown) (no date) (unknown) [facility]) Result panel 166 (unknown) (no date) (unknown) [facility]) Result panel 167 (unknown) (no date) (unknown) [facility]) Result panel 168 (unknown) (no date) (unknown) [facility] Result panel 169 (unknown) (no date) (unknown[facility]) Result panel 170 (unknown) (no date) (unknown) [facility]) Result panel 171 (unknown) (no date) (unknown[facility]) Result panel 172 (unknown) (no date) (unknown) [facility]) Result panel 173 (unknown) (no date) (unknown[facility]) Result panel 174 (unknown) (no date) (unknown) [facility]) Result panel 175 (unknown) (no date) (unknown) [facility]) Result panel 176 (unknown) (no date) (unknown) [facility] Result panel 177 (unknown) (no date) (unknown[facility]) Result panel 178 (unknown) (no date) (unknown) [facility] Result panel 179 (unknown) (no date) (unknown) [facility]) Result panel 180 (unknown) (no date) (unknown) [facility] Result panel 181 (unknown) (no date) (unknown) [facility]) Result panel 182 (unknown) (no date) (unknown) [facility] Result panel 183 (unknown) (no date) (unknown[facility] Result panel 184 (unknown) (no date) (unknown[facility]) Result panel 185 (unknown) (no date) (unknown[facility]) Result panel 186 (unknown) (no date) (unknown[facility]) Result panel 187 (unknown) (no date) (unknown[facility]) Result panel 188 (unknown) (no date) (unknown[facility] Result panel 189 (unknown) (no date) (unknown) [facility]) Result panel 190 (unknown) (no date) (unknown[facility]) Result panel 191 (unknown) (no date) (unknown) [facility]) Result panel 192 (unknown) (no date) (unknown) [facility]) Result panel 193 (unknown) (no date) (unknown) [facility]) Result panel 194 (unknown) (no date) (unknown) [facility] Result panel 195 (unknown) (no date) (unknown) [facility]) Result panel 196 (unknown) (no date) (unknown) [facility]) Result panel 197 (unknown) (no date) (unknown[facility] Result panel 198 (unknown) (no date) (unknown[facility] Result panel 199 (unknown) (no date) (unknown[facility]) Result panel 200 (unknown) (no date) (unknown) [facility] Result panel 201 (unknown) (no date) (unknown) [facility]) Result panel 202 (unknown) (no date) (unknown[facility]) Result panel 203 (unknown) (no date) (unknown[facility]) Result panel 204 (unknown) (no date) (unknown[facility] Result panel 205 (unknown) (no date) (unknown[facility]) Result panel 206 (unknown) (no date) (unknown[facility] Result panel 207 (unknown) (no date) (unknown[facility]) Result panel 208 (unknown) (no date) (unknown[facility]) Result panel 209 (unknown) (no date) (unknown[facility] Result panel 210 (unknown) (no date) (unknown[facility] Result panel 211 (unknown) (no date) (unknown[facility] Result panel 212 (unknown) (no date) (unknown[facility]) Result panel 213 (unknown) (no date) (unknown[facility] Result panel 214 (unknown) (no date) (unknown[facility]) Result panel 215 (unknown) (no date) (unknown[facility] Result panel 216 (unknown) (no date) (unknown[facility]) Result panel 217 (unknown) (no date) (unknown[facility] Result panel 218 (unknown) (no date) (unknown) [facility]) Result panel 219 (unknown) (no date) (unknown[facility]) Result panel 220 (unknown) (no date) (unknown) [facility] [facility] Result panel 221 (unknown) (no date) (unknown) [facility]) Result panel 222 (unknown) (no date) (unknown) [facility]) Result panel 223 (unknown) (no date) (unknown) [facility]) Result panel 224 (unknown) (no date) (unknown) [facility]) Result panel 225 (unknown) (no date) (unknown) [facility]) Result panel 226 (unknown) (no date) (unknown) [facility]) Result panel 227 (unknown) (no date) (unknown) [facility]) Result panel 228 (unknown) (no date) (unknown) [facility]) Result panel 229 (unknown) (no date) (unknown) [facility]) Result panel 230 (unknown) (no date) (unknown) [facility]) Result panel 231 (unknown) (no date) (unknown) [facility]) Result panel 232 (unknown) (no date) (unknown) [facility]) Result panel 233 (unknown) (no date) (unknown) [facility]) Result panel 234 (unknown) (no date) (unknown) [facility]) Result panel 235 (unknown) (no date) (unknown) [facility]) Result panel 236 (unknown) (no date) (unknown) [facility]) Result panel 237 (unknown) (no date) (unknown) [facility]) Result panel 238 (unknown) (no date) (unknown) [facility]) Result panel 239 (unknown) (no date) (unknown) [facility]) Result panel 240 (unknown) (no date) (unknown) [facility]) Result panel 241 (unknown) (no date) (unknown) [facility]) Result panel 242 (unknown) (no date) (unknown) [facility]) Result panel 243 (unknown) (no date) (unknown) [facility]) Result panel 244 (unknown) (no date) (unknown) [facility]) Result panel 245 (unknown) (no date) (unknown) [facility]) Result panel 246 (unknown) (no date) (unknown) [facility]) Result panel 247 (unknown) (no date) (unknown) [facility]) Result panel 248 (unknown) (no date) (unknown) [facility]) Result panel 249 (unknown) (no date) (unknown) [facility]) Result panel 250 (unknown) (no date) (unknown) [facility]) Result panel 251 (unknown) (no date) (unknown) [facility]) Result panel 252 (unknown) (no date) (unknown) [facility]) Result panel 253 (unknown) (no date) (unknown) [facility]) Result panel 254 (unknown) (no date) (unknown) [facility]) Result panel 255 (unknown) (no date) (unknown) [facility]) Result panel 256 (unknown) (no date) (unknown) [facility]) Result panel 257 (unknown) (no date) (unknown) [facility]) Result panel 258 (unknown) (no date) (unknown) [facility]) Result panel 259 (unknown) (no date) (unknown) [facility]) Result panel 260 (unknown) (no date) (unknown) [facility]) Result panel 261 (unknown) (no date) (unknown) [facility]) Result panel 262 (unknown) (no date) (unknown) [facility]) Result panel 263 (unknown) (no date) (unknown) [facility]) Result panel 264 (unknown) (no (unknown) (unknown) (no value) (units (unk nown) date) unknown) (unknown) (no (unknown) (unknown) 08/24/22 (units (unkno wn) date) unknown) (unknown) (no (unknown) (unknown) 06/17/22 12:52) (units (unknown) date) unknown) (unknown) (no (unknown) (unknown) 12:52) (units (unkno wn) date) unknown) (unknown) (no (unknown) (unknown) Adverse Reaction (units (unknown) date) (Intermediate, unknown) Verified 06/17/22 12:52) (unknown) (no (unknown) (unknown) Age/Sex: 86 / F (units (unknown) date) Date of Service: unknown) (unknown) (no (unknown) (unknown) Allergies (units (unkn own) date) unknown) (unknown) (no (unknown) (unknown) [place]units ( unknown[place] date[place] [id number] unknown) (unknown) (no (unknown) (unknown) Anesthesia (units (unk nown) date) unknown) (unknown) (no (unknown) (unknown) Attending Dr: (units ( unknown) date) Irma Holder D.O. unknown) (unknown) (no (unknown) (unknown) Benign essential (units (unknown) date) HTN unknown) (unknown) (no (unknown) (unknown) COUGHING (units (unkno wn) date) unknown) (unknown) (no (unknown) (unknown) Chronic back (units (u nknown) date) pain unknown) (unknown) (no (unknown) (unknown) : 1935 (units (unknown) date) Acct:[id number] unknown) (unknown) (no (unknown) (unknown) Dept at (units (unkno wn) date) . unknown) (unknown) (no (unknown) (unknown) Diabetes (-2007) (units (unknown) date) unknown) (unknown) (no (unknown) (unknown) Documented By: (units (unknown) date) Irma Holder unknown) 08/24/22 1401 (unknown) (no (unknown) (unknown) Draft (units (unkno wn) date) unknown) (unknown) (no (unknown) (unknown) Family Practice (units (unknown) date) Office Visit unknown) (unknown) (no (unknown) (unknown) [facility]) (unknown) (no (unknown) (unknown) GERD (units (unkno wn) date) (gastroesophageal unknown) reflux disease) (unknown) (no (unknown) (unknown) HEART RACING (units (u nknown) date) unknown) (unknown) (no (unknown) (unknown) Hearing loss (units (u nknown) date) unknown) (unknown) (no (unknown) (unknown) History of total (units (unknown) date) hip replacement unknown) (unknown) (no (unknown) (unknown) History of (units (unk nown) date) urinary unknown) incontinence (unknown) (no (unknown) (unknown) Hypertension (units (u nknown) date) unknown) (unknown) (no (unknown) (unknown) Intake (units (unkno wn) date) unknown) (unknown) (no (unknown) (unknown) Loc: [facility] (units (unkno wn) date) unknown) (unknown) (no (unknown) (unknown) [id number] (units (unk nown) date) unknown) (unknown) (no (unknown) (unknown) MUSCLE ACHES AND (units (unknown) date) WEIGHT LOSS unknown) (unknown) (no (unknown) (unknown) Medical History (units (unknown) date) (Updated 06/17/22 unknown) @ 15:03 by Irma Holder DO) (unknown) (no (unknown) (unknown) Osteoarthritis (units (unknown) date) unknown) (unknown) (no (unknown) (unknown) Osteoporosis (units (u nknown) date) unknown) (unknown) (no (unknown) (unknown) PFSH (units (unkno wn) date) unknown) (unknown) (no (unknown) (unknown) Patient: (units (unkno wn) date) Rosita Devi unknown) L MR#: (unknown) (no (unknown) (unknown) Pulmonary (units (unkn own) date) fibrosis unknown) (unknown) (no (unknown) (unknown) Reason For Visit (units (unknown) date) unknown) (unknown) (no (unknown) (unknown) Shoulder pain (units ( unknown) date) unknown) (unknown) (no (unknown) (unknown) Signed By: (units (unk nown) date) unknown) (unknown) (no (unknown) (unknown) Sleep apnea (units (un known) date) unknown) (unknown) (no (unknown) (unknown) Smoking Status: (units (unknown) date) Former smoker unknown) (unknown) (no (unknown) (unknown) Social History (units (unknown) date) unknown) (unknown) (no (unknown) (unknown) Sjwaetb-HIR-UxO (units (unknown) date) Reductase unknown) Inhibitor [[id number] REDUCTASE INHIBITOR] (unknown) (no (unknown) (unknown) Surgical History (units (unknown) date) (Updated 06/14/22 unknown) @ 22:24 by Sherita Carreon) (unknown) (no (unknown) (unknown) This note may (units ( unknown) date) have been all or unknown) partially generated using voice recognition (unknown) (no (unknown) (unknown) Tobacco + (units (unkn own) date) Substance Use unknown) (unknown) (no (unknown) (unknown) Tobacco Status (units (unknown) date) unknown) (unknown) (no (unknown) (unknown) 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 (units ( unknown) date) unknown) (unknown) (no (unknown) (unknown) Visit Reasons: (units (unknown) date) F/U for O2 unknown) (unknown) (no (unknown) (unknown) alendronate (units (un known) date) sodium [From unknown) FOSAMAX] Adverse Reaction (Intermediate, Verified (unknown) (no (unknown) (unknown) ezetimibe [From (units (unknown) date) ZETIA] Adverse unknown) Reaction (Mild, Verified 06/17/22 12:52) (unknown) (no (unknown) (unknown) have occurred. (units (unknown) date) If there are any unknown) questions, please contact the Medical Records (unknown) (no (unknown) (unknown) household (units (unkn own) date) members: spouse unknown) (unknown) (no (unknown) (unknown) may occur. (units (unk nown) date) Occasional unknown) wrong-word or 'sound-alike' substitutions may have (unknown) (no (unknown) (unknown) occurred due to (units (unknown) date) the inherent unknown) limitations of voice recognition software. Please (unknown) (no (unknown) (unknown) omeprazole [From (units (unknown) date) PRILOSEC] Adverse unknown) Reaction (Intermediate, Verified 06/17/22 (unknown) (no (unknown) (unknown) read the note (units ( unknown) date) carefully and unknown) recognize, using context, where these substitutions (unknown) (no (unknown) (unknown) software. (units (unkn own) date) Although every unknown) effort is made to edit content, hay stacker errors (unknown) (no (unknown) (unknown) tramadol (units (unkno wn) date) [TRAMADOL] unknown) Allergy (Intermediate, Verified 06/17/22 12:52) Result panel 265 (unknown) (no (unknown) (unknown) (no value) (units (unk nown) date) unknown) (unknown) (no (unknown) (unknown) 08/24/22 14:08) (units (unknown) date) unknown) (unknown) (no (unknown) (unknown) 08/24/22 (units (unkno wn) date) unknown) (unknown) (no (unknown) (unknown) 08/24/22] (units (unkn own) date) unknown) (unknown) (no (unknown) (unknown) 05/24/17 (units (unkno wn) date) [History unknown) Confirmed 08/24/22] (unknown) (no (unknown) (unknown) 14:08) (units (unkno wn) date) unknown) (unknown) (no (unknown) (unknown) 14:10 (units (unkno wn) date) unknown) (unknown) (no (unknown) (unknown) 86 year old (units (un known) date) female presents unknown) to clinic for recheck oxygen levels. (unknown) (no (unknown) (unknown) Adverse Reaction (units (unknown) date) (Intermediate, unknown) Verified 08/24/22 14:08) (unknown) (no (unknown) (unknown) Age/Sex: 86 / F (units (unknown) date) Date of Service: unknown) (unknown) (no (unknown) (unknown) Allergies (units (unkn own) date) unknown) (unknown) (no (unknown) (unknown) [place], [place] (units ( unknown) date) [id number] unknown) (unknown) (no (unknown) (unknown) Anesthesia (units (unk nown) date) unknown) (unknown) (no (unknown) (unknown) Attending Dr: (units ( unknown) date) Irma GarciaOPower unknown) (unknown) (no (unknown) (unknown) BMI 21.9 (units (unkno wn) date) unknown) (unknown) (no (unknown) (unknown) BP 172/83 H (units (un known) date) unknown) (unknown) (no (unknown) (unknown) Benign essential (units (unknown) date) HTN unknown) (unknown) (no (unknown) (unknown) Blood Pressure (units (unknown) date) Location Rt unknown) radial (unknown) (no (unknown) (unknown) COUGHING (units (unkno wn) date) unknown) (unknown) (no (unknown) (unknown) Chronic back (units (u nknown) date) pain unknown) (unknown) (no (unknown) (unknown) Confirmed (units (unkn own) date) 08/24/22] unknown) (unknown) (no (unknown) (unknown) : 1935 (units (unknown) date) Acct:[id number] unknown) (unknown) (no (unknown) (unknown) Dept at (units (unkno wn) date) . unknown) (unknown) (no (unknown) (unknown) Diabetes (-2007) (units (unknown) date) unknown) (unknown) (no (unknown) (unknown) Documented By: (units (unknown) date) Irma Holder unknown) 08/24/22 1401 (unknown) (no (unknown) (unknown) Draft (units (unkno wn) date) unknown) (unknown) (no (unknown) (unknown) Family Practice (units (unknown) date) Office Visit unknown) (unknown) (no (unknown) (unknown) [facility] ([facility] ([facility] date[facility] unknown) (unknown) (no (unknown) (unknown) GERD (units (unkno wn) date) (gastroesophageal unknown) reflux disease) (unknown) (no (unknown) (unknown) HEART RACING (units (u nknown) date) unknown) (unknown) (no (unknown) (unknown) Health (units (unkno wn) date) Management unknown) reviewed with patient: Yes (unknown) (no (unknown) (unknown) Health (units (unkno wn) date) Management unknown) (unknown) (no (unknown) (unknown) Hearing loss (units (u nknown) date) unknown) (unknown) (no (unknown) (unknown) Height 5 ft 7 in (units (unknown) date) unknown) (unknown) (no (unknown) (unknown) History of total (units (unknown) date) hip replacement unknown) (unknown) (no (unknown) (unknown) History of (units (unk nown) date) urinary unknown) incontinence (unknown) (no (unknown) (unknown) Hypertension (units (u nknown) date) unknown) (unknown) (no (unknown) (unknown) Intake Note: (units (u nknown) date) unknown) (unknown) (no (unknown) (unknown) Intake performed (units (unknown) date) by: Dennise Lundy unknown) (unknown) (no (unknown) (unknown) Intake (units (unkno wn) date) unknown) (unknown) (no (unknown) (unknown) Intake- Clincial (units (unknown) date) Staff unknown) (unknown) (no (unknown) (unknown) Loc: [facility] (units (unkno wn) date) unknown) (unknown) (no (unknown) (unknown) [id number] (units (unk nown) date) unknown) (unknown) (no (unknown) (unknown) MUSCLE ACHES AND (units (unknown) date) WEIGHT LOSS unknown) (unknown) (no (unknown) (unknown) Medical History (units (unknown) date) (Updated 06/17/22 unknown) @ 15:03 by Irma Holder DO) (unknown) (no (unknown) (unknown) Medications (units (un known) date) unknown) (unknown) (no (unknown) (unknown) Osteoarthritis (units (unknown) date) unknown) (unknown) (no (unknown) (unknown) Osteoporosis (units (u nknown) date) unknown) (unknown) (no (unknown) (unknown) Oxygen Delivery (units (unknown) date) Method nasal unknown) canula (unknown) (no (unknown) (unknown) Oxygen Flow Rate (units (unknown) date) 3 unknown) (unknown) (no (unknown) (unknown) PFSH (units (unkno wn) date) unknown) (unknown) (no (unknown) (unknown) Patient: (units (unkno wn) date) Rosita Devi unknown) L MR#: (unknown) (no (unknown) (unknown) Position Sitting (units (unknown) date) unknown) (unknown) (no (unknown) (unknown) Pulmonary (units (unkn own) date) fibrosis unknown) (unknown) (no (unknown) (unknown) Pulse 115 H (units (un known) date) unknown) (unknown) (no (unknown) (unknown) Pulse Oximetry (units (unknown) date) (%) 97 unknown) (unknown) (no (unknown) (unknown) Pulse Source (units (u nknown) date) Monitor unknown) (unknown) (no (unknown) (unknown) Reason For Visit (units (unknown) date) unknown) (unknown) (no (unknown) (unknown) Shoulder pain (units ( unknown) date) unknown) (unknown) (no (unknown) (unknown) Signed By: (units (unk nown) date) unknown) (unknown) (no (unknown) (unknown) Sleep apnea (units (un known) date) unknown) (unknown) (no (unknown) (unknown) Smoking Status: (units (unknown) date) Former smoker unknown) (unknown) (no (unknown) (unknown) Social History (units (unknown) date) unknown) (unknown) (no (unknown) (unknown) [id number]-[id number] (units (unknown) date) Reductase unknown) Inhibitor [[id number] REDUCTASE INHIBITOR] (unknown) (no (unknown) (unknown) Surgical History (units (unknown) date) (Updated 06/14/22 unknown) @ 22:24 by Sherita Carreon) (unknown) (no (unknown) (unknown) Temp 97.3 F L (units ( unknown) date) unknown) (unknown) (no (unknown) (unknown) Temp Source (units (un known) date) Temporal Artery unknown) Scan (unknown) (no (unknown) (unknown) This note may (units ( unknown) date) have been all or unknown) partially generated using voice recognition (unknown) (no (unknown) (unknown) Tobacco + (units (unkn own) date) Substance Use unknown) (unknown) (no (unknown) (unknown) Tobacco Status (units (unknown) date) unknown) (unknown) (no (unknown) (unknown) 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 (units ( unknown) date) unknown) (unknown) (no (unknown) (unknown) Visit Reasons: (units (unknown) date) F/U for O2 unknown) (unknown) (no (unknown) (unknown) Vitals (units (unkno wn) date) unknown) (unknown) (no (unknown) (unknown) Weight 140 lb (units ( unknown) date) unknown) (unknown) (no (unknown) (unknown) acetaminophen 500 (units (unknown) date) mg tablet unknown) (Tylenol Extra Strength) 500 mg PO Q6HP PRN pain ##0 (unknown) (no (unknown) (unknown) alendronate (units (un known) date) sodium [From unknown) FOSAMAX] Adverse Reaction (Intermediate, Verified (unknown) (no (unknown) (unknown) ezetimibe [From (units (unknown) date) ZETIA] Adverse unknown) Reaction (Mild, Verified 08/24/22 14:08) (unknown) (no (unknown) (unknown) glimepiride 1 mg (units (unknown) date) tablet (Amaryl) unknown) 0.5 mg PO AMCC ##0 05/24/17 [History Confirmed (unknown) (no (unknown) (unknown) have occurred. (units (unknown) date) If there are any unknown) questions, please contact the Medical Records (unknown) (no (unknown) (unknown) household (units (unkn own) date) members: spouse unknown) (unknown) (no (unknown) (unknown) hydrocodone 5 (units (u nknown) date) mg-acetaminophen unknown) 325 mg tablet 0.5 - 1 tab PO BEDTIME PRN pain #30 (unknown) (no (unknown) (unknown) losartan 50 mg (units (unknown) date) tablet 50 mg PO unknown) QAM ##0 08/17/17 [History Confirmed 08/24/22] (unknown) (no (unknown) (unknown) may occur. (units (unk nown) date) Occasional unknown) wrong-word or 'sound-alike' substitutions may have (unknown) (no (unknown) (unknown) occurred due to (units (unknown) date) the inherent unknown) limitations of voice recognition software. Please (unknown) (no (unknown) (unknown) omeprazole [From (units (unknown) date) PRILOSEC] Adverse unknown) Reaction (Intermediate, Verified 08/24/22 (unknown) (no (unknown) (unknown) oxygen #1 ea (units (u nknown) date) 06/17/22 [Rx unknown) Confirmed 08/24/22] (unknown) (no (unknown) (unknown) oxygen (units (unkno wn) date) concentrator #1 unknown) ea 08/18/22 [Rx Confirmed 08/24/22] (unknown) (no (unknown) (unknown) plant stanol (units (u nknown) date) tim 450 mg unknown) tablet (Cholest Off) 1 tab PO QAM 05/17/18 [History (unknown) (no (unknown) (unknown) read the note (units ( unknown) date) carefully and unknown) recognize, using context, where these substitutions (unknown) (no (unknown) (unknown) software. (units (unkn own) date) Although every unknown) effort is made to edit content, hay stacker errors (unknown) (no (unknown) (unknown) tabs 06/17/22 (units ( unknown) date) [Rx Confirmed unknown) 08/24/22] (unknown) (no (unknown) (unknown) tramadol (units (unkno wn) date) [TRAMADOL] unknown) Allergy (Intermediate, Verified 08/24/22 14:08) Result panel 266 (unknown) (no (unknown) (unknown) (no value) (units (unk nown) date) unknown) (unknown) (no (unknown) (unknown) 08/24/22 14:08) (units (unknown) date) unknown) (unknown) (no (unknown) (unknown) 08/24/22 (units (unkno wn) date) unknown) (unknown) (no (unknown) (unknown) 08/24/22] (units (unkn own) date) unknown) (unknown) (no (unknown) (unknown) 05/24/17 (units (unkno wn) date) [History unknown) Confirmed 08/24/22] (unknown) (no (unknown) (unknown) 14:08) (units (unkno wn) date) unknown) (unknown) (no (unknown) (unknown) 14:10 (units (unkno wn) date) unknown) (unknown) (no (unknown) (unknown) 86 year old (units (un known) date) female presents unknown) to clinic for recheck oxygen levels. (unknown) (no (unknown) (unknown) Adverse Reaction (units (unknown) date) (Intermediate, unknown) Verified 08/24/22 14:08) (unknown) (no (unknown) (unknown) Age/Sex: 86 / F (units (unknown) date) Date of Service: unknown) (unknown) (no (unknown) (unknown) Allergies (units (unkn own) date) unknown) (unknown) (no (unknown) (unknown) [place] (units ( [place]) date[place] [id number] unknown) (unknown) (no (unknown) (unknown) Anesthesia (units (unk nown) date) unknown) (unknown) (no (unknown) (unknown) Attending Dr: (units ( unknown) date) Irma Holder D.O. unknown) (unknown) (no (unknown) (unknown) BMI 21.9 (units (unkno wn) date) unknown) (unknown) (no (unknown) (unknown) BP 172/83 H (units (un known) date) unknown) (unknown) (no (unknown) (unknown) Benign essential (units (unknown) date) HTN unknown) (unknown) (no (unknown) (unknown) Blood Pressure (units (unknown) date) Location Rt unknown) radial (unknown) (no (unknown) (unknown) COUGHING (units (unkno wn) date) unknown) (unknown) (no (unknown) (unknown) Chronic back (units (u nknown) date) pain unknown) (unknown) (no (unknown) (unknown) Confirmed (units (unkn own) date) 08/24/22] unknown) (unknown) (no (unknown) (unknown) : 1935 (units (unknown) date) Acct:[id number] unknown) (unknown) (no (unknown) (unknown) Dept at (units (unkno wn) date) . unknown) (unknown) (no (unknown) (unknown) Diabetes (-2007) (units (unknown) date) unknown) (unknown) (no (unknown) (unknown) Documented By: (units (unknown) date) Irma Holder unknown) 08/24/22 1401 (unknown) (no (unknown) (unknown) Draft (units (unkno wn) date) unknown) (unknown) (no (unknown) (unknown) Family Practice (units (unknown) date) Office Visit unknown) (unknown) (no (unknown) (unknown) [facility] (units ([facility] date[facility] unknown) (unknown) (no (unknown) (unknown) GERD (units (unkno wn) date) (gastroesophageal unknown) reflux disease) (unknown) (no (unknown) (unknown) HEART RACING (units (u nknown) date) unknown) (unknown) (no (unknown) (unknown) Health (units (unkno wn) date) Management unknown) reviewed with patient: Yes (unknown) (no (unknown) (unknown) Health (units (unkno wn) date) Management unknown) (unknown) (no (unknown) (unknown) Hearing loss (units (u nknown) date) unknown) (unknown) (no (unknown) (unknown) Height 5 ft 7 in (units (unknown) date) unknown) (unknown) (no (unknown) (unknown) History of total (units (unknown) date) hip replacement unknown) (unknown) (no (unknown) (unknown) History of (units (unk nown) date) urinary unknown) incontinence (unknown) (no (unknown) (unknown) Hypertension (units (u nknown) date) unknown) (unknown) (no (unknown) (unknown) Intake Note: (units (u nknown) date) unknown) (unknown) (no (unknown) (unknown) Intake performed (units (unknown) date) by: Dennise Lundy unknown) (unknown) (no (unknown) (unknown) Intake (units (unkno wn) date) unknown) (unknown) (no (unknown) (unknown) Intake- Clincial (units (unknown) date) Staff unknown) (unknown) (no (unknown) (unknown) Loc: [facility] (units (unkno wn) date) unknown) (unknown) (no (unknown) (unknown) [id number] (units (unk nown) date) unknown) (unknown) (no (unknown) (unknown) MUSCLE ACHES AND (units (unknown) date) WEIGHT LOSS unknown) (unknown) (no (unknown) (unknown) Medical History (units (unknown) date) (Updated 06/17/22 unknown) @ 15:03 by Irma Holder DO) (unknown) (no (unknown) (unknown) Medications (units (un known) date) unknown) (unknown) (no (unknown) (unknown) Osteoarthritis (units (unknown) date) unknown) (unknown) (no (unknown) (unknown) Osteoporosis (units (u nknown) date) unknown) (unknown) (no (unknown) (unknown) Oxygen Delivery (units (unknown) date) Method nasal unknown) canula (unknown) (no (unknown) (unknown) Oxygen Flow Rate (units (unknown) date) 3 unknown) (unknown) (no (unknown) (unknown) PFSH (units (unkno wn) date) unknown) (unknown) (no (unknown) (unknown) Patient: (units (unkno wn) date) MaritoRosita unknown) L MR#: (unknown) (no (unknown) (unknown) Position Sitting (units (unknown) date) unknown) (unknown) (no (unknown) (unknown) Pulmonary (units (unkn own) date) fibrosis unknown) (unknown) (no (unknown) (unknown) Pulse 115 H (units (un known) date) unknown) (unknown) (no (unknown) (unknown) Pulse Oximetry (units (unknown) date) (%) 97 unknown) (unknown) (no (unknown) (unknown) Pulse Source (units (u nknown) date) Monitor unknown) (unknown) (no (unknown) (unknown) Reason For Visit (units (unknown) date) unknown) (unknown) (no (unknown) (unknown) Shoulder pain (units ( unknown) date) unknown) (unknown) (no (unknown) (unknown) Signed By: (units (unk nown) date) unknown) (unknown) (no (unknown) (unknown) Sleep apnea (units (un known) date) unknown) (unknown) (no (unknown) (unknown) Smoking Status: (units (unknown) date) Former smoker unknown) (unknown) (no (unknown) (unknown) Social History (units (unknown) date) unknown) (unknown) (no (unknown) (unknown) [id number]-EMS-DbK (units (unknown) date) Reductase unknown) Inhibitor [[id number] REDUCTASE INHIBITOR] (unknown) (no (unknown) (unknown) Surgical History (units (unknown) date) (Updated 06/14/22 unknown) @ 22:24 by Sherita Carreon) (unknown) (no (unknown) (unknown) Temp 97.3 F L (units ( unknown) date) unknown) (unknown) (no (unknown) (unknown) Temp Source (units (un known) date) Temporal Artery unknown) Scan (unknown) (no (unknown) (unknown) This note may (units ( unknown) date) have been all or unknown) partially generated using voice recognition (unknown) (no (unknown) (unknown) Tobacco + (units (unkn own) date) Substance Use unknown) (unknown) (no (unknown) (unknown) Tobacco Status (units (unknown) date) unknown) (unknown) (no (unknown) (unknown) 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 (units ( unknown) date) unknown) (unknown) (no (unknown) (unknown) Visit Reasons: (units (unknown) date) F/U for O2 unknown) (unknown) (no (unknown) (unknown) Vitals (units (unkno wn) date) unknown) (unknown) (no (unknown) (unknown) Weight 140 lb (units ( unknown) date) unknown) (unknown) (no (unknown) (unknown) acetaminophen 500 (units (unknown) date) mg tablet unknown) (Tylenol Extra Strength) 500 mg PO Q6HP PRN pain ##0 (unknown) (no (unknown) (unknown) alendronate (units (un known) date) sodium [From unknown) FOSAMAX] Adverse Reaction (Intermediate, Verified (unknown) (no (unknown) (unknown) ezetimibe [From (units (unknown) date) ZETIA] Adverse unknown) Reaction (Mild, Verified 08/24/22 14:08) (unknown) (no (unknown) (unknown) glimepiride 1 mg (units (unknown) date) tablet (Amaryl) unknown) 0.5 mg PO AMCC ##0 05/24/17 [History Confirmed (unknown) (no (unknown) (unknown) have occurred. (units (unknown) date) If there are any unknown) questions, please contact the Medical Records (unknown) (no (unknown) (unknown) household (units (unkn own) date) members: spouse unknown) (unknown) (no (unknown) (unknown) hydrocodone 5 (units (u nknown) date) mg-acetaminophen unknown) 325 mg tablet 0.5 - 1 tab PO BEDTIME PRN pain #30 (unknown) (no (unknown) (unknown) losartan 50 mg (units (unknown) date) tablet 50 mg PO unknown) QAM ##0 08/17/17 [History Confirmed 08/24/22] (unknown) (no (unknown) (unknown) may occur. (units (unk nown) date) Occasional unknown) wrong-word or 'sound-alike' substitutions may have (unknown) (no (unknown) (unknown) occurred due to (units (unknown) date) the inherent unknown) limitations of voice recognition software. Please (unknown) (no (unknown) (unknown) omeprazole [From (units (unknown) date) PRILOSEC] Adverse unknown) Reaction (Intermediate, Verified 08/24/22 (unknown) (no (unknown) (unknown) oxygen #1 ea (units (u nknown) date) 06/17/22 [Rx unknown) Confirmed 08/24/22] (unknown) (no (unknown) (unknown) oxygen (units (unkno wn) date) concentrator #1 unknown) ea 08/18/22 [Rx Confirmed 08/24/22] (unknown) (no (unknown) (unknown) plant stanol (units (u nknown) date) tim 450 mg unknown) tablet (Cholest Off) 1 tab PO QAM 05/17/18 [History (unknown) (no (unknown) (unknown) read the note (units ( unknown) date) carefully and unknown) recognize, using context, where these substitutions (unknown) (no (unknown) (unknown) software. 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 unknown) (unknown) (no (unknown) (unknown) -follow up 1 (units (u nknown) date) month unknown) (unknown) (no (unknown) (unknown) -she will monitor (units (unknown) date) blood pressure at unknown) home. We will readjust her medications next (unknown) (no (unknown) (unknown) 08/24/22 1437 (units ( unknown) date) unknown) (unknown) (no (unknown) (unknown) 08/24/22 14:08) (units (unknown) date) unknown) (unknown) (no (unknown) (unknown) 08/24/22 (units (unkno wn) date) unknown) (unknown) (no (unknown) (unknown) 08/24/22] (units (unkn own) date) unknown) (unknown) (no (unknown) (unknown) 1. Blood pressure (units (unknown) date) is above goal on unknown) multiple occasions. We will increase her (unknown) (no (unknown) (unknown) 05/24/17 [History (units (unknown) date) Confirmed unknown) 08/24/22] (unknown) (no (unknown) (unknown) 14:08) (units (unkno wn) date) unknown) (unknown) (no (unknown) (unknown) 14:10 (units (unkno wn) date) unknown) (unknown) (no (unknown) (unknown) 2. Continue as (units (unknown) date) needed unknown) hydrocodone. (unknown) (no (unknown) (unknown) 3. Reviewed her (units (unknown) date) recent pulmonary unknown) function test. She needs to use oxygen at all (unknown) (no (unknown) (unknown) 4. Her last A1c (units (unknown) date) in June was unknown) 7.4. I think at this point as long as her A1c (unknown) (no (unknown) (unknown) 5. I think the (units (unknown) date) increased heart unknown) rate is due to either hypoxia or deconditioning. (unknown) (no (unknown) (unknown) 86 year old (units (un known) date) female presents to unknown) clinic for recheck oxygen levels. (unknown) (no (unknown) (unknown) Adverse Reaction (units (unknown) date) (Intermediate, unknown) Verified 08/24/22 14:08) (unknown) (no (unknown) (unknown) Age/Sex: 86 / F (units (unknown) date) Date of Service: unknown) (unknown) (no (unknown) (unknown) Allergies (units (unkn own) date) unknown) (unknown) (no (unknown) (unknown) Allergies: (units (unk nown) date) Reviewed unknown) (unknown) (no (unknown) (unknown) [place] (units ( unknown) date) [id number] unknown) (unknown) (no (unknown) (unknown) Anesthesia (units (unk nown) date) unknown) (unknown) (no (unknown) (unknown) Assessment + Plan (units (unknown) date) unknown) (unknown) (no (unknown) (unknown) Attending Dr: Irma (units (unknown) date) Glory Oh.OPower unknown) (unknown) (no (unknown) (unknown) BMI 21.9 (units (unkno wn) date) unknown) (unknown) (no (unknown) (unknown) BP 172/83 H (units (un known) date) unknown) (unknown) (no (unknown) (unknown) Benign essential (units (unknown) date) HTN unknown) (unknown) (no (unknown) (unknown) Blood Pressure (units (unknown) date) Location Rt radial unknown) (unknown) (no (unknown) (unknown) CARDIAC: Regular (units (unknown) date) rate and rhythm. unknown) (unknown) (no (unknown) (unknown) CHEST: Normal (units ( unknown) date) respiratory effort unknown) (unknown) (no (unknown) (unknown) COUGHING (units (unkno wn) date) unknown) (unknown) (no (unknown) (unknown) Chief Complaint: (units (unknown) date) Oxygen use unknown) followup (unknown) (no (unknown) (unknown) Chronic back pain (units (unknown) date) unknown) (unknown) (no (unknown) (unknown) Confirmed (units (unkn own) date) 08/24/22] unknown) (unknown) (no (unknown) (unknown) Constitutional: (units (unknown) date) Negative.? unknown) (unknown) (no (unknown) (unknown) : 1935 (units (unknown) date) Acct:[id number] unknown) (unknown) (no (unknown) (unknown) Dept at (units (unkno wn) date) . unknown) (unknown) (no (unknown) (unknown) Diabetes (-2007) (units (unknown) date) unknown) (unknown) (no (unknown) (unknown) Diabetes mellitus (units (unknown) date) complication unknown) status: without complication Diabetes (unknown) (no (unknown) (unknown) Documented By: (units (unknown) date) Glory Ali unknown) 08/24/22 1401 (unknown) (no (unknown) (unknown) EYES: PERRL, EOMI (units (unknown) date) and nonicteric unknown) (unknown) (no (unknown) (unknown) Endocrine: (units (unk nown) date) Negative.? unknown) (unknown) (no (unknown) (unknown) Family Practice (units (unknown) date) Office Visit unknown) (unknown) (no (unknown) (unknown) [facility]) (unknown) (no (unknown) (unknown) GENERAL: Well (units ( unknown) date) developed, well unknown) nourished.? Cooperative with exam.? Patient is in (unknown) (no (unknown) (unknown) GERD (units (unkno wn) date) (gastroesophageal unknown) reflux disease) (unknown) (no (unknown) (unknown) Gastrointestinal: (units (unknown) date) Negative.? unknown) (unknown) (no (unknown) (unknown) Genitourinary: (units (unknown) date) Negative.? unknown) (unknown) (no (unknown) (unknown) HEAD: Atraumatic, (units (unknown) date) Normocephalic unknown) (unknown) (no (unknown) (unknown) HEART RACING (units (u nknown) date) unknown) (unknown) (no (unknown) (unknown) Health Management (units (unknown) date) reviewed with unknown) patient: Yes (unknown) (no (unknown) (unknown) Health Management (units (unknown) date) unknown) (unknown) (no (unknown) (unknown) Hearing loss (units (u nknown) date) unknown) (unknown) (no (unknown) (unknown) Height 5 ft 7 in (units (unknown) date) unknown) (unknown) (no (unknown) (unknown) History of total (units (unknown) date) hip replacement unknown) (unknown) (no (unknown) (unknown) History of (units (unk nown) date) urinary unknown) incontinence (unknown) (no (unknown) (unknown) Hypertension (units (u nknown) date) unknown) (unknown) (no (unknown) (unknown) I reviewed the (units (unknown) date) patient's Past unknown) Medical History, Problem List, Medications and (unknown) (no (unknown) (unknown) Intake Note: (units (u nknown) date) unknown) (unknown) (no (unknown) (unknown) Intake performed (units (unknown) date) by: Dennise Lundy unknown) (unknown) (no (unknown) (unknown) Intake (units (unkno wn) date) unknown) (unknown) (no (unknown) (unknown) Intake- Clincial (units (unknown) date) Staff unknown) (unknown) (no (unknown) (unknown) LUNGS: Clear all (units (unknown) date) lung naik, unknown) Bilaterally (unknown) (no (unknown) (unknown) Loc: [facility] (units (unkno wn) date) unknown) (unknown) (no (unknown) (unknown) [id number] (units (unk nown) date) unknown) (unknown) (no (unknown) (unknown) MUSCLE ACHES AND (units (unknown) date) WEIGHT LOSS unknown) (unknown) (no (unknown) (unknown) MUSKULOSKELETAL: (units (unknown) date) slow gait w a unknown) walker (unknown) (no (unknown) (unknown) Medical History (units (unknown) date) (Updated 06/17/22 unknown) @ 15:03 by Irma Holder DO) (unknown) (no (unknown) (unknown) Medications (units (un known) date) unknown) (unknown) (no (unknown) (unknown) Medications: (units (u nknown) date) Reconciled unknown) (unknown) (no (unknown) (unknown) Medications: (units (u nknown) date) unknown) (unknown) (no (unknown) (unknown) NECK: Full range (units (unknown) date) of motion, unknown) lymphadenopathy absent, supple (unknown) (no (unknown) (unknown) NEURO EXAM: Alert (units (unknown) date) and oriented x 3.? unknown) (unknown) (no (unknown) (unknown) Neurological: (units ( unknown) date) Negative.? unknown) (unknown) (no (unknown) (unknown) Note (units (unkno wn) date) unknown) (unknown) (no (unknown) (unknown) Note: (units (unkno wn) date) unknown) (unknown) (no (unknown) (unknown) Notes (units (unkno wn) date) unknown) (unknown) (no (unknown) (unknown) Objective: (units (unk nown) date) unknown) (unknown) (no (unknown) (unknown) Once she is at (units (unknown) date) rest her heart unknown) rate does returned to normal. However we will get (unknown) (no (unknown) (unknown) Osteoarthritis (units (unknown) date) unknown) (unknown) (no (unknown) (unknown) Osteoporosis (units (u nknown) date) unknown) (unknown) (no (unknown) (unknown) Oxygen Delivery (units (unknown) date) Method nasal unknown) canula (unknown) (no (unknown) (unknown) Oxygen Flow Rate (units (unknown) date) 3 unknown) (unknown) (no (unknown) (unknown) PFSH (units (unkno wn) date) unknown) (unknown) (no (unknown) (unknown) PSYCH: judgement (units (unknown) date) normal, unknown) orientation normal, affect/mood normal and memory (unknown) (no (unknown) (unknown) Patient is here (units (unknown) date) to follow up on unknown) her oxygen use. She states that she is been (unknown) (no (unknown) (unknown) Patient: (units (unkno wn) date) Rosita Devi L unknown) MR#: (unknown) (no (unknown) (unknown) Plan (units (unkno wn) date) unknown) (unknown) (no (unknown) (unknown) Position Sitting (units (unknown) date) unknown) (unknown) (no (unknown) (unknown) Pulmonary (units (unkn own) date) fibrosis unknown) (unknown) (no (unknown) (unknown) Pulse 115 H (units (un known) date) unknown) (unknown) (no (unknown) (unknown) Pulse Oximetry (units (unknown) date) (%) 97 unknown) (unknown) (no (unknown) (unknown) Pulse Source (units (u nknown) date) Monitor unknown) (unknown) (no (unknown) (unknown) Qualifiers: (units (un known) date) unknown) (unknown) (no (unknown) (unknown) Reason For Visit (units (unknown) date) unknown) (unknown) (no (unknown) (unknown) Refilled (units (unkno wn) date) unknown) (unknown) (no (unknown) (unknown) Review of (units (unkn own) date) Systems: unknown) (unknown) (no (unknown) (unknown) SKIN:? No rashes (units (unknown) date) on face or arms. unknown) (unknown) (no (unknown) (unknown) Shoulder pain (units ( unknown) date) unknown) (unknown) (no (unknown) (unknown) Signed By: (units (unk nown) date) <Electronically unknown) signed by Irma Holder> (unknown) (no (unknown) (unknown) Signed (units (unkno wn) date) unknown) (unknown) (no (unknown) (unknown) Sleep apnea (units (un known) date) unknown) (unknown) (no (unknown) (unknown) Smoking Status: (units (unknown) date) Former smoker unknown) (unknown) (no (unknown) (unknown) Social History (units (unknown) date) (including tobacco unknown) use status). (unknown) (no (unknown) (unknown) Social History (units (unknown) date) unknown) (unknown) (no (unknown) (unknown) Halbgao-WSE-RxP (units (unknown) date) Reductase unknown) Inhibitor [[id number] REDUCTASE INHIBITOR] (unknown) (no (unknown) (unknown) Status: Acute (units ( unknown) date) unknown) (unknown) (no (unknown) (unknown) Subjective: (units (un known) date) unknown) (unknown) (no (unknown) (unknown) Surgical History (units (unknown) date) (Updated 06/14/22 unknown) @ 22:24 by Sherita Carreon) (unknown) (no (unknown) (unknown) Temp 97.3 F L (units ( unknown) date) unknown) (unknown) (no (unknown) (unknown) Temp Source (units (un known) date) Temporal Artery unknown) Scan (unknown) (no (unknown) (unknown) This note may (units ( unknown) date) have been all or unknown) partially generated using voice recognition (unknown) (no (unknown) (unknown) Tobacco + (units (unkn own) date) Substance Use unknown) (unknown) (no (unknown) (unknown) Tobacco Status (units (unknown) date) unknown) (unknown) (no (unknown) (unknown) 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 (units ( unknown) date) unknown) (unknown) (no (unknown) (unknown) Visit Reasons: (units (unknown) date) F/U for O2 unknown) (unknown) (no (unknown) (unknown) Vital Signs: (units (u nknown) date) Reviewed unknown) (unknown) (no (unknown) (unknown) Vitals (units (unkno wn) date) unknown) (unknown) (no (unknown) (unknown) Voice recognition (units (unknown) date) software was used unknown) in the creation of this note. There may be (unknown) (no (unknown) (unknown) Weight 140 lb (units ( unknown) date) unknown) (unknown) (no (unknown) (unknown) a ZIO patch and (units (unknown) date) evaluate her heart unknown) rate further. (unknown) (no (unknown) (unknown) acetaminophen 500 (units (unknown) date) mg tablet (Tylenol unknown) Extra Strength) 500 mg PO Q6HP PRN pain ##0 (unknown) (no (unknown) (unknown) alendronate (units (un known) date) sodium [From unknown) FOSAMAX] Adverse Reaction (Intermediate, Verified (unknown) (no (unknown) (unknown) back down with (units (unknown) date) rest. However this unknown) does bother her quite a bit that her blood (unknown) (no (unknown) (unknown) complications (units ( unknown) date) unknown) (unknown) (no (unknown) (unknown) episodes where (units (unknown) date) her heart rate unknown) goes up to 130 with activity. It does seem to go (unknown) (no (unknown) (unknown) ezetimibe [From (units (unknown) date) ZETIA] Adverse unknown) Reaction (Mild, Verified 08/24/22 14:08) (unknown) (no (unknown) (unknown) glimepiride 1 mg (units (unknown) date) tablet (Amaryl) unknown) 0.5 mg PO AMCC ##0 10/11/17 [History Confirmed (unknown) (no (unknown) (unknown) have occurred. If (units (unknown) date) there are any unknown) questions, please contact the Medical Records (unknown) (no (unknown) (unknown) household (units (unkn own) date) members: spouse unknown) (unknown) (no (unknown) (unknown) hydrocodone 5 (units (u nknown) date) mg-acetaminophen unknown) 325 mg tablet 0.5 - 1 tab PO BEDTIME PRN pain #30 (unknown) (no (unknown) (unknown) hydrocodone-aceta (units (unknown) date) minophen 5-325 mg unknown) 0.5 - 1 tabs PO BEDTIME PRN 30 tabs 0RF pain (unknown) (no (unknown) (unknown) intermittently. (units (unknown) date) She states that unknown) she is more tired frequently. She needs to (unknown) (no (unknown) (unknown) is less than 7.5 (units (unknown) date) will not adjust unknown) her medications aggressively. (unknown) (no (unknown) (unknown) losartan 50 mg (units (unknown) date) tablet 50 mg PO unknown) QAM ##0 08/17/17 [History Confirmed 08/24/22] (unknown) (no (unknown) (unknown) losartan to 100 (units (unknown) date) mg. unknown) (unknown) (no (unknown) (unknown) may occur. (units (unk nown) date) Occasional unknown) wrong-word or 'sound-alike' substitutions may have (unknown) (no (unknown) (unknown) mellitus long (units ( unknown) date) term insulin use: unknown) without oysterman use Diabetes mellitus type: (unknown) (no (unknown) (unknown) month needed. (units ( unknown) date) unknown) (unknown) (no (unknown) (unknown) no apparent (units (un known) date) distress. unknown) (unknown) (no (unknown) (unknown) normal (units (unkno wn) date) unknown) (unknown) (no (unknown) (unknown) occurred due to (units (unknown) date) the inherent unknown) limitations of voice recognition software. Please (unknown) (no (unknown) (unknown) omeprazole [From (units (unknown) date) PRILOSEC] Adverse unknown) Reaction (Intermediate, Verified 08/24/22 (unknown) (no (unknown) (unknown) oxygen #1 ea (units (u nknown) date) 06/17/22 [Rx unknown) Confirmed 08/24/22] (unknown) (no (unknown) (unknown) oxygen (units (unkno wn) date) concentrator #1 ea unknown) 08/18/22 [Rx Confirmed 08/24/22] (unknown) (no (unknown) (unknown) plant stanol (units (u nknown) date) tim 450 mg unknown) tablet (Cholest Off) 1 tab PO QAM 05/17/18 [History (unknown) (no (unknown) (unknown) pressure is (units (un known) date) fluctuating. She unknown) does have some associated chest discomfort (unknown) (no (unknown) (unknown) read the note (units ( unknown) date) carefully and unknown) recognize, using context, where these substitutions (unknown) (no (unknown) (unknown) rest. She did (units ( unknown) date) have some blood unknown) work in June. We did a pulmonary function (unknown) (no (unknown) (unknown) software. (units (unkn own) date) Although every unknown) effort is made to edit content, hay stacker errors (unknown) (no (unknown) (unknown) tabs 08/24/22 [Rx (units (unknown) date) Confirmed unknown) 08/24/22] (unknown) (no (unknown) (unknown) test. (units (unkno wn) date) unknown) (unknown) (no (unknown) (unknown) times. This is (units (unknown) date) likely unknown) contributing to her fatigue as well. (unknown) (no (unknown) (unknown) tramadol (units (unkno wn) date) [TRAMADOL] Allergy unknown) (Intermediate, Verified 08/24/22 14:08) (unknown) (no (unknown) (unknown) type 2 Qualified (units (unknown) date) Code(s): E11.9 - unknown) Type 2 diabetes mellitus without (unknown) (no (unknown) (unknown) typographical (units ( unknown) date) errors as a unknown) result. (unknown) (no (unknown) (unknown) using it at all (units (unknown) date) times and does unknown) feel better while using oxygen. She still has Result panel 268 (unknown) (no (unknown) (unknown) (no value) (units (unk nown) date) unknown) (unknown) (no (unknown) (unknown) 09/15/22 0859 (units ( unknown) date) unknown) (unknown) (no (unknown) (unknown) 7+ day cardiac (units (unknown) date) monitor unknown) demonstrating the single episode of VT as above, also (unknown) (no (unknown) (unknown) Age/Sex: 86 / F (units (unknown) date) unknown) (unknown) (no (unknown) (unknown) Approximately 6.5% (units (unknown) date) of identified beats unknown) were supraventricular ectopic in origin (unknown) (no (unknown) (unknown) Cnmt (units (unknown) date) Report unknown) (unknown) (no (unknown) (unknown) Clinical (units (unkno wn) date) correlation unknown) suggested (unknown) (no (unknown) (unknown) : 1935 (units (unknown) date) Acct:[id number] unknown) (unknown) (no (unknown) (unknown) Data: (units (unkno wn) date) unknown) (unknown) (no (unknown) (unknown) Date Patient Seen: (units (unknown) date) 09/01/22 unknown) (unknown) (no (unknown) (unknown) Date of Service: (units (unknown) date) 09/01/22 unknown) (unknown) (no (unknown) (unknown) Diary information: (units (unknown) date) unknown) (unknown) (no (unknown) (unknown) Duration of (units (un known) date) monitoring (days): unknown) 8 (unknown) (no (unknown) (unknown) Impression: (units (un known) date) unknown) (unknown) (no (unknown) (unknown) Indication: (units (un known) date) unknown) (unknown) (no (unknown) (unknown) [facility] (units (unknown) date) [address] unknown) [place] [address] (unknown) (no (unknown) (unknown) Less than 1% of (units (unknown) date) identified beats unknown) were ventricular ectopic in origin which would (unknown) (no (unknown) (unknown) [id number] (units (unk nown) date) unknown) (unknown) (no (unknown) (unknown) Maximum overall (units (unknown) date) heart rate was 193 unknown) beats per minute at 11:50 on 09/06/2022 (unknown) (no (unknown) (unknown) Maximum sinus (units ( unknown) date) heart rate was 147 unknown) beats per minute at 16:50 on 09/02/2022 (unknown) (no (unknown) (unknown) Minimum heart rate (units (unknown) date) identified was 61 unknown) beats per minute at 02:06 on 09/03/2022 (unknown) (no (unknown) (unknown) Patient: (units (unkno wn) date) Rosita Devi L unknown) MR#: (unknown) (no (unknown) (unknown) Provider: (units (unkn own) date) Ruslan Sagastume MD unknown) (unknown) (no (unknown) (unknown) Referral + Results (units (unknown) date) unknown) (unknown) (no (unknown) (unknown) Requesting (units (unk nown) date) provider: Irma unknown) Glory (unknown) (no (unknown) (unknown) Signed (units (unkno wn) date) By:<Electronically unknown) signed by Ruslan Sagastume MD> (unknown) (no (unknown) (unknown) Suspect possible (units (unknown) date) brief runs of SVT unknown) maybe symptomatic (unknown) (no (unknown) (unknown) Tachycardia (units (un known) date) unknown) (unknown) (no (unknown) (unknown) There was 1 9 beat (units (unknown) date) run of monomorphic unknown) ventricular tachycardia identified on this (unknown) (no (unknown) (unknown) There were 719 (units (unknown) date) runs of SVT with unknown) the fastest being 9.2 seconds at a rate of 193 (unknown) (no (unknown) (unknown) There were no (units ( unknown) date) patient events to unknown) review (unknown) (no (unknown) (unknown) There were no (units ( unknown) date) pauses of 3 seconds unknown) or longer or episodes of atrial fibrillation (unknown) (no (unknown) (unknown) Unable to (units (unkn own) date) correlate with any unknown) patient's symptoms given lack of patient reported (unknown) (no (unknown) (unknown) beats per minute (units (unknown) date) with the longest unknown) lasting 40.5 seconds at a rate of 124 beats (unknown) (no (unknown) (unknown) classify them as (units (unknown) date) rare unknown) (unknown) (no (unknown) (unknown) demonstrating (units (u nknown) date) frequent unknown) supraventricular ectopy including 700+ runs of brief SVT. (unknown) (no (unknown) (unknown) during a run of (units (unknown) date) SVT unknown) (unknown) (no (unknown) (unknown) events (units (unkno wn) date) unknown) (unknown) (no (unknown) (unknown) identified on this (units (unknown) date) study unknown) (unknown) (no (unknown) (unknown) per minute which (units (unknown) date) suggest possibly unknown) atrial tachycardia rather than true SVT (unknown) (no (unknown) (unknown) study (units (unkno wn) date) unknown) (unknown) (no (unknown) (unknown) triplets (units (unkno wn) date) unknown) (unknown) (no (unknown) (unknown) which would (units (unk nown) date) classify them as unknown) frequent this included occasional couplets and rare Result panel 269 (unknown) (no (unknown) (unknown) (no value) (units (unk nown) date) unknown) (unknown) (no (unknown) (unknown) 08/24/22 14:08) (units (unknown) date) unknown) (unknown) (no (unknown) (unknown) 09/26/22 (units (unkno wn) date) unknown) (unknown) (no (unknown) (unknown) 14:08) (units (unkno wn) date) unknown) (unknown) (no (unknown) (unknown) Adverse Reaction (units (unknown) date) (Intermediate, unknown) Verified 08/24/22 14:08) (unknown) (no (unknown) (unknown) Age/Sex: 86 / F (units (unknown) date) Date of Service: unknown) (unknown) (no (unknown) (unknown) Allergies (units (unkn own) date) unknown) (unknown) (no (unknown) (unknown) [place], [place] (units ( unknown) date) [id number] unknown) (unknown) (no (unknown) (unknown) Anesthesia (units (unk nown) date) unknown) (unknown) (no (unknown) (unknown) Attending Dr: (units ( unknown) date) Irma Holder D.OPower unknown) (unknown) (no (unknown) (unknown) Benign essential (units (unknown) date) HTN unknown) (unknown) (no (unknown) (unknown) COUGHING (units (unkno wn) date) unknown) (unknown) (no (unknown) (unknown) Chronic back (units (u nknown) date) pain unknown) (unknown) (no (unknown) (unknown) : 1935 (units (unknown) date) Acct:[id number] unknown) (unknown) (no (unknown) (unknown) Dept at (units (unkno wn) date) . unknown) (unknown) (no (unknown) (unknown) Diabetes (-2006) (units (unknown) date) unknown) (unknown) (no (unknown) (unknown) Documented By: (units (unknown) date) Irma Holder unknown) 09/26/22 1356 (unknown) (no (unknown) (unknown) Draft (units (unkno wn) date) unknown) (unknown) (no (unknown) (unknown) Family Practice (units (unknown) date) Office Visit unknown) (unknown) (no (unknown) (unknown) [facility] unknown) (unknown) (no (unknown) (unknown) GERD (units (unkno wn) date) (gastroesophageal unknown) reflux disease) (unknown) (no (unknown) (unknown) HEART RACING (units (u nknown) date) unknown) (unknown) (no (unknown) (unknown) Hearing loss (units (u nknown) date) unknown) (unknown) (no (unknown) (unknown) History of total (units (unknown) date) hip replacement unknown) (unknown) (no (unknown) (unknown) History of (units (unk nown) date) urinary unknown) incontinence (unknown) (no (unknown) (unknown) Hypertension (units (u nknown) date) unknown) (unknown) (no (unknown) (unknown) Intake (units (unkno wn) date) unknown) (unknown) (no (unknown) (unknown) Loc: [facility] (units (unkno wn) date) unknown) (unknown) (no (unknown) (unknown) [id number] (units (unk nown) date) unknown) (unknown) (no (unknown) (unknown) MUSCLE ACHES AND (units (unknown) date) WEIGHT LOSS unknown) (unknown) (no (unknown) (unknown) Medical History (units (unknown) date) (Updated 09/15/22 unknown) @ 13:54 by Irma Holder DO) (unknown) (no (unknown) (unknown) Osteoarthritis (units (unknown) date) unknown) (unknown) (no (unknown) (unknown) Osteoporosis (units (u nknown) date) unknown) (unknown) (no (unknown) (unknown) PFSH (units (unkno wn) date) unknown) (unknown) (no (unknown) (unknown) Patient: (units (unkno wn) date) Rosita Devi unknown) L MR#: (unknown) (no (unknown) (unknown) Pulmonary (units (unkn own) date) fibrosis unknown) (unknown) (no (unknown) (unknown) Reason For Visit (units (unknown) date) unknown) (unknown) (no (unknown) (unknown) SVT (units (unkno wn) date) (supraventricular unknown) tachycardia) (unknown) (no (unknown) (unknown) Shoulder pain (units ( unknown) date) unknown) (unknown) (no (unknown) (unknown) Signed By: (units (unk nown) date) unknown) (unknown) (no (unknown) (unknown) Sleep apnea (units (un known) date) unknown) (unknown) (no (unknown) (unknown) Smoking Status: (units (unknown) date) Former smoker unknown) (unknown) (no (unknown) (unknown) Social History (units (unknown) date) unknown) (unknown) (no (unknown) (unknown) [id number] (units (unknown) date) Reductase unknown) Inhibitor [[id number] REDUCTASE INHIBITOR] (unknown) (no (unknown) (unknown) Surgical History (units (unknown) date) (Updated 06/14/22 unknown) @ 22:24 by Sherita Carreon) (unknown) (no (unknown) (unknown) This note may (units ( unknown) date) have been all or unknown) partially generated using voice recognition (unknown) (no (unknown) (unknown) Tobacco + (units (unkn own) date) Substance Use unknown) (unknown) (no (unknown) (unknown) Tobacco Status (units (unknown) date) unknown) (unknown) (no (unknown) (unknown) 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 (units ( unknown) date) unknown) (unknown) (no (unknown) (unknown) Visit Reasons: 1 (units (unknown) date) month recheck BP unknown) + HEART RATE (unknown) (no (unknown) (unknown) alendronate (units (un known) date) sodium [From unknown) FOSAMAX] Adverse Reaction (Intermediate, Verified (unknown) (no (unknown) (unknown) ezetimibe [From (units (unknown) date) ZETIA] Adverse unknown) Reaction (Mild, Verified 08/24/22 14:08) (unknown) (no (unknown) (unknown) have occurred. (units (unknown) date) If there are any unknown) questions, please contact the Medical Records (unknown) (no (unknown) (unknown) household (units (unkn own) date) members: spouse unknown) (unknown) (no (unknown) (unknown) may occur. (units (unk nown) date) Occasional unknown) wrong-word or 'sound-alike' substitutions may have (unknown) (no (unknown) (unknown) occurred due to (units (unknown) date) the inherent unknown) limitations of voice recognition software. Please (unknown) (no (unknown) (unknown) omeprazole [From (units (unknown) date) PRILOSEC] Adverse unknown) Reaction (Intermediate, Verified 08/24/22 (unknown) (no (unknown) (unknown) read the note (units ( unknown) date) carefully and unknown) recognize, using context, where these substitutions (unknown) (no (unknown) (unknown) software. 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 unknown) without complication, 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 insulin (unknown) (no (unknown) (unknown) (4) Pulmonary (units ( unknown) date) fibrosis: unknown) (unknown) (no (unknown) (unknown) -follow up in December (units (unknown) date) for annual unknown) wellness visit (unknown) (no (unknown) (unknown) 08/24/22 14:08) (units (unknown) date) unknown) (unknown) (no (unknown) (unknown) 09/26/22 [History (units (unknown) date) Confirmed unknown) 09/26/22] (unknown) (no (unknown) (unknown) 09/26/22 (units (unkno wn) date) unknown) (unknown) (no (unknown) (unknown) 09/26/22] (units (unkn own) date) unknown) (unknown) (no (unknown) (unknown) 1. Blood pressure (units (unknown) date) is at goal with unknown) the increasing the losartan. Continue current (unknown) (no (unknown) (unknown) 1. her bp is well (units (unknown) date) controlled at this unknown) point. we increased her losartan to 100 (unknown) (no (unknown) (unknown) 05/24/17 [History (units (unknown) date) Confirmed unknown) 09/26/22] (unknown) (no (unknown) (unknown) 14:00 (units (unkno wn) date) unknown) (unknown) (no (unknown) (unknown) 14:08) (units (unkno wn) date) unknown) (unknown) (no (unknown) (unknown) 2. Reviewed her (units (unknown) date) ZIO patch. She unknown) does have some episodes SVT. We discussed (unknown) (no (unknown) (unknown) 2. she is using (units (unknown) date) her oxygen at all unknown) times. she feels better at this point. (unknown) (no (unknown) (unknown) 3. Has not well (units (unknown) date) controlled in the unknown) past. If her A1c is greater than 7.5 consider (unknown) (no (unknown) (unknown) 3. she states she (units (unknown) date) has issues with unknown) urinary incontinence which worsens at 5 am. (unknown) (no (unknown) (unknown) 4. Improved with (units (unknown) date) regular oxygen unknown) use. (unknown) (no (unknown) (unknown) Adverse Reaction (units (unknown) date) (Intermediate, unknown) Verified 08/24/22 14:08) (unknown) (no (unknown) (unknown) Age/Sex: 86 / F (units (unknown) date) Date of Service: unknown) (unknown) (no (unknown) (unknown) Allergies (units (unkn own) date) unknown) (unknown) (no (unknown) (unknown) Allergies: (units (unk nown) date) Reviewed unknown) (unknown) (no (unknown) (unknown) [place], [place] (units ( unknown) date) [id number] unknown) (unknown) (no (unknown) (unknown) Anesthesia (units (unk nown) date) unknown) (unknown) (no (unknown) (unknown) Assessment + Plan (units (unknown) date) unknown) (unknown) (no (unknown) (unknown) Attending Dr: Irma (units (unknown) date) Glory Wiseman unknown) (unknown) (no (unknown) (unknown) BMI 22.1 (units (unkno wn) date) unknown) (unknown) (no (unknown) (unknown) BP 132/80 (units (unkn own) date) unknown) (unknown) (no (unknown) (unknown) Benign essential (units (unknown) date) HTN unknown) (unknown) (no (unknown) (unknown) Blood Pressure (units (unknown) date) Location Rt unknown) brachial (unknown) (no (unknown) (unknown) CHEST: Normal (units ( unknown) date) respiratory effort unknown) (unknown) (no (unknown) (unknown) COUGHING (units (unkno wn) date) unknown) (unknown) (no (unknown) (unknown) Chief Complaint: (units (unknown) date) BP f/u unknown) (unknown) (no (unknown) (unknown) Chronic back pain (units (unknown) date) unknown) (unknown) (no (unknown) (unknown) Confirmed (units (unkn own) date) 09/26/22] unknown) (unknown) (no (unknown) (unknown) Constitutional: (units (unknown) date) Negative.? unknown) (unknown) (no (unknown) (unknown) : 1935 (units (unknown) date) Acct:[id number] unknown) (unknown) (no (unknown) (unknown) Dept at (units (unkno wn) date) . unknown) (unknown) (no (unknown) (unknown) Documented By: (units (unknown) date) Irma Holder unknown) 09/26/22 1356 (unknown) (no (unknown) (unknown) Draft (units (unkno wn) date) unknown) (unknown) (no (unknown) (unknown) EYES: PERRL, EOMI (units (unknown) date) and nonicteric unknown) (unknown) (no (unknown) (unknown) Family Practice (units (unknown) date) Office Visit unknown) (unknown) (no (unknown) (unknown) [facility] ([facility] ([facility] date[facility] unknown) (unknown) (no (unknown) (unknown) GENERAL: Well (units ( unknown) date) developed, well unknown) nourished.? Cooperative with exam.? Patient is in (unknown) (no (unknown) (unknown) GERD (units (unkno wn) date) (gastroesophageal unknown) reflux disease) (unknown) (no (unknown) (unknown) HEAD: Atraumatic, (units (unknown) date) Normocephalic unknown) (unknown) (no (unknown) (unknown) HEART RACING (units (u nknown) date) unknown) (unknown) (no (unknown) (unknown) Hearing loss (units (u nknown) date) unknown) (unknown) (no (unknown) (unknown) Height 5 ft 7 in (units (unknown) date) unknown) (unknown) (no (unknown) (unknown) History of total (units (unknown) date) hip replacement unknown) (unknown) (no (unknown) (unknown) History of (units (unk nown) date) urinary unknown) incontinence (unknown) (no (unknown) (unknown) I reviewed the (units (unknown) date) patient's Past unknown) Medical History, Problem List, Medications and (unknown) (no (unknown) (unknown) Intake (units (unkno wn) date) unknown) (unknown) (no (unknown) (unknown) Loc: [facility] (units (unkno wn) date) unknown) (unknown) (no (unknown) (unknown) [id number] (units (unk nown) date) unknown) (unknown) (no (unknown) (unknown) MUSCLE ACHES AND (units (unknown) date) WEIGHT LOSS unknown) (unknown) (no (unknown) (unknown) MUSKULOSKELETAL: (units (unknown) date) using a walker unknown) (unknown) (no (unknown) (unknown) Medical History (units (unknown) date) (Updated 09/26/22 unknown) @ 14:31 by Irma Holder DO) (unknown) (no (unknown) (unknown) Medications (units (un known) date) unknown) (unknown) (no (unknown) (unknown) Medications: (units (u nknown) date) Reconciled unknown) (unknown) (no (unknown) (unknown) NECK: Full range (units (unknown) date) of motion, unknown) lymphadenopathy absent, supple (unknown) (no (unknown) (unknown) NEURO EXAM: Alert (units (unknown) date) and oriented x 3.? unknown) (unknown) (no (unknown) (unknown) Note (units (unkno wn) date) unknown) (unknown) (no (unknown) (unknown) Note: (units (unkno wn) date) unknown) (unknown) (no (unknown) (unknown) Notes (units (unkno wn) date) unknown) (unknown) (no (unknown) (unknown) Objective: (units (unk nown) date) unknown) (unknown) (no (unknown) (unknown) Osteoarthritis (units (unknown) date) unknown) (unknown) (no (unknown) (unknown) Osteoporosis (units (u nknown) date) unknown) (unknown) (no (unknown) (unknown) Oxygen Delivery (units (unknown) date) Method room air unknown) (unknown) (no (unknown) (unknown) PFSH (units (unkno wn) date) unknown) (unknown) (no (unknown) (unknown) PSYCH: judgement (units (unknown) date) normal, unknown) orientation normal, affect/mood normal and memory (unknown) (no (unknown) (unknown) Patient: (units (unkno wn) date) Rosita Devi L unknown) MR#: (unknown) (no (unknown) (unknown) Plan (units (unkno wn) date) unknown) (unknown) (no (unknown) (unknown) Position Sitting (units (unknown) date) unknown) (unknown) (no (unknown) (unknown) Pulmonary (units (unkn own) date) fibrosis unknown) (unknown) (no (unknown) (unknown) Pulse 94 H (units (unk nown) date) unknown) (unknown) (no (unknown) (unknown) Pulse Oximetry (units (unknown) date) (%) 98 unknown) (unknown) (no (unknown) (unknown) Pulse Source (units (u nknown) date) Monitor unknown) (unknown) (no (unknown) (unknown) Reason For Visit (units (unknown) date) unknown) (unknown) (no (unknown) (unknown) Respiratory: (units (u nknown) date) Negative.? unknown) (unknown) (no (unknown) (unknown) Review of (units (unkn own) date) Systems: unknown) (unknown) (no (unknown) (unknown) SKIN:? No rashes (units (unknown) date) on face or arms. unknown) (unknown) (no (unknown) (unknown) SVT (units (unkno wn) date) (supraventricular unknown) tachycardia) (unknown) (no (unknown) (unknown) Shoulder pain (units ( unknown) date) unknown) (unknown) (no (unknown) (unknown) Signed By: (units (unk nown) date) unknown) (unknown) (no (unknown) (unknown) Sleep apnea (units (un known) date) unknown) (unknown) (no (unknown) (unknown) Smoking Status: (units (unknown) date) Former smoker unknown) (unknown) (no (unknown) (unknown) Social History (units (unknown) date) (including tobacco unknown) use status). (unknown) (no (unknown) (unknown) Social History (units (unknown) date) unknown) (unknown) (no (unknown) (unknown) [id number] (units (unknown) date) Reductase unknown) Inhibitor [[id number] REDUCTASE INHIBITOR] (unknown) (no (unknown) (unknown) Status: Acute (units ( unknown) date) unknown) (unknown) (no (unknown) (unknown) Subjective: (units (un known) date) unknown) (unknown) (no (unknown) (unknown) Surgical History (units (unknown) date) (Updated 06/14/22 unknown) @ 22:24 by Sherita Carreon) (unknown) (no (unknown) (unknown) Temp 96.6 F L (units ( unknown) date) unknown) (unknown) (no (unknown) (unknown) Temp Source Skin (units (unknown) date) unknown) (unknown) (no (unknown) (unknown) This note may (units ( unknown) date) have been all or unknown) partially generated using voice recognition (unknown) (no (unknown) (unknown) Tobacco + (units (unkn own) date) Substance Use unknown) (unknown) (no (unknown) (unknown) Tobacco Status (units (unknown) date) unknown) (unknown) (no (unknown) (unknown) 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, 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 insulin use (unknown) (no (unknown) (unknown) 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 There may be (unknown) (no (unknown) (unknown) Weight 141 lb 4 (units (unknown) date) oz unknown) (unknown) (no (unknown) (unknown) acetaminophen 500 (units (unknown) date) mg tablet (Tylenol unknown) Extra Strength) 500 mg PO Q6HP PRN pain ##0 (unknown) (no (unknown) (unknown) adjusting her (units ( unknown) date) medications unknown) further. (unknown) (no (unknown) (unknown) alendronate 70 mg (units (unknown) date) tablet (Fosamax) unknown) 70 mg PO QWEEK 09/26/22 [History Confirmed (unknown) (no (unknown) (unknown) alendronate (units (un known) date) sodium [From unknown) FOSAMAX] Adverse Reaction (Intermediate, Verified (unknown) (no (unknown) (unknown) dose. (units (unkno wn) date) unknown) (unknown) (no (unknown) (unknown) ezetimibe [From (units (unknown) date) ZETIA] Adverse unknown) Reaction (Mild, Verified 08/24/22 14:08) (unknown) (no (unknown) (unknown) glimepiride 1 mg (units (unknown) date) tablet (Amaryl) 1 unknown) mg PO DAILY #0 tabs 09/26/22 [History (unknown) (no (unknown) (unknown) have a few (units (unk nown) date) episodes of unknown) increased HR but it does not affect her. (unknown) (no (unknown) (unknown) have occurred. If (units (unknown) date) there are any unknown) questions, please contact the Medical Records (unknown) (no (unknown) (unknown) household (units (unkn own) date) members: spouse unknown) (unknown) (no (unknown) (unknown) hydrocodone 5 (units (u nknown) date) mg-acetaminophen unknown) 325 mg tablet 0.5 - 1 tab PO BEDTIME PRN pain #30 (unknown) (no (unknown) (unknown) like to hold off (units (unknown) date) at this point. She unknown) will continue to monitor her symptoms and (unknown) (no (unknown) (unknown) losartan 100 mg (units (unknown) date) tablet 100 mg PO unknown) DAILY blood pressure #90 tabs 08/24/22 [Rx (unknown) (no (unknown) (unknown) may occur. (units (unk nown) date) Occasional unknown) wrong-word or 'sound-alike' substitutions may have (unknown) (no (unknown) (unknown) mg and her bp is (units (unknown) date) at goal. HR is on unknown) the upper end of normal. she continues to (unknown) (no (unknown) (unknown) no apparent (units (un known) date) distress. unknown) (unknown) (no (unknown) (unknown) no uti symptoms. (units (unknown) date) unknown) (unknown) (no (unknown) (unknown) normal (units (unkno wn) date) unknown) (unknown) (no (unknown) (unknown) occurred due to (units (unknown) date) the inherent unknown) limitations of voice recognition software. Please (unknown) (no (unknown) (unknown) omeprazole [From (units (unknown) date) PRILOSEC] Adverse unknown) Reaction (Intermediate, Verified 08/24/22 (unknown) (no (unknown) (unknown) oxygen #1 ea (units (u nknown) date) 06/17/22 [Rx unknown) Confirmed 09/26/22] (unknown) (no (unknown) (unknown) oxygen (units (unkno wn) date) concentrator #1 ea unknown) 08/18/22 [Rx Confirmed 09/26/22] (unknown) (no (unknown) (unknown) pantoprazole 40 (units (unknown) date) mg tablet,delayed unknown) release 40 mg PO DAILY Hiatal hernia--gerd (unknown) (no (unknown) (unknown) plant stanol (units (u nknown) date) tim 450 mg unknown) tablet (Cholest Off) 1 tab PO QAM 05/17/18 [History (unknown) (no (unknown) (unknown) possibly adding a (units (unknown) date) low-dose unknown) beta-josé miguel to help control heart rate. She would (unknown) (no (unknown) (unknown) pt is here to f/u (units (unknown) date) on several issues. unknown) (unknown) (no (unknown) (unknown) read the note (units ( unknown) date) carefully and unknown) recognize, using context, where these substitutions (unknown) (no (unknown) (unknown) see if they (units (un known) date) really affect her unknown) that much. (unknown) (no (unknown) (unknown) software. (units (unkn own) date) Although every unknown) effort is made to edit content, hay stacker errors (unknown) (no (unknown) (unknown) tabs 08/24/22 [Rx (units (unknown) date) Confirmed unknown) 09/26/22] (unknown) (no (unknown) (unknown) tramadol (units (unkno wn) date) [TRAMADOL] Allergy unknown) (Intermediate, Verified 08/24/22 14:08) (unknown) (no (unknown) (unknown) typographical (units ( unknown) date) errors as a unknown) result. 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: unknown) (unknown) (no (unknown) (unknown) (2) SVT (units (unkno wn) date) (supraventricular unknown) tachycardia): (unknown) (no (unknown) (unknown) (3) Type 2 (units (unk nown) date) diabetes mellitus unknown) without complication, 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 insulin (unknown) (no (unknown) (unknown) (4) Pulmonary (units ( unknown) date) fibrosis: unknown) (unknown) (no (unknown) (unknown) - Essential (units (unk nown) date) (primary) unknown) hypertension, I47.1 - Supraventricular tachycardia, J84.10 (unknown) (no (unknown) (unknown) - Pulmonary (units (un known) date) fibrosis, unknown) unspecified (unknown) (no (unknown) (unknown) -follow up in December (units (unknown) date) for annual wellness unknown) visit (unknown) (no (unknown) (unknown) 08/24/22 14:08) (units (unknown) date) unknown) (unknown) (no (unknown) (unknown) 09/26/22 [History (units (unknown) date) Confirmed 09/26/22] unknown) (unknown) (no (unknown) (unknown) 09/26/22 (units (unkno wn) date) unknown) (unknown) (no (unknown) (unknown) 09/26/22] (units (unkn own) date) unknown) (unknown) (no (unknown) (unknown) 1. Blood pressure (units (unknown) date) is at goal with the unknown) increasing the losartan. Continue current (unknown) (no (unknown) (unknown) 1. her bp is well (units (unknown) date) controlled at this unknown) point. we increased her losartan to 100 (unknown) (no (unknown) (unknown) 05/24/17 [History (units (unknown) date) Confirmed 09/26/22] unknown) (unknown) (no (unknown) (unknown) 14:00 (units (unkno wn) date) unknown) (unknown) (no (unknown) (unknown) 14:08) (units (unkno wn) date) unknown) (unknown) (no (unknown) (unknown) 2. Reviewed her (units (unknown) date) ZIO patch. She does unknown) have some episodes SVT. We discussed (unknown) (no (unknown) (unknown) 2. she is using (units (unknown) date) her oxygen at all unknown) times. she feels better at this point. (unknown) (no (unknown) (unknown) 3. Has not well (units (unknown) date) controlled in the unknown) past. If her A1c is greater than 7.5 consider (unknown) (no (unknown) (unknown) 3. she states she (units (unknown) date) has issues with unknown) urinary incontinence which worsens at 5 am. (unknown) (no (unknown) (unknown) 4. Improved with (units (unknown) date) regular oxygen use. unknown) (unknown) (no (unknown) (unknown) Adverse Reaction (units (unknown) date) (Intermediate, unknown) Verified 08/24/22 14:08) (unknown) (no (unknown) (unknown) Age/Sex: 86 / F (units (unknown) date) Date of Service: unknown) (unknown) (no (unknown) (unknown) Allergies (units (unkn own) date) unknown) (unknown) (no (unknown) (unknown) Allergies: (units (unk nown) date) Reviewed unknown) (unknown) (no (unknown) (unknown) [place], [place] (units ( unknown) date) [id number] unknown) (unknown) (no (unknown) (unknown) Anesthesia (units (unk nown) date) unknown) (unknown) (no (unknown) (unknown) Assessment + Plan (units (unknown) date) unknown) (unknown) (no (unknown) (unknown) Attending Dr: Irma (units (unknown) date) Glory Wiseman unknown) (unknown) (no (unknown) (unknown) BMI 22.1 (units (unkno wn) date) unknown) (unknown) (no (unknown) (unknown) BP 132/80 (units (unkn own) date) unknown) (unknown) (no (unknown) (unknown) Benign essential (units (unknown) date) HTN unknown) (unknown) (no (unknown) (unknown) Blood Pressure (units (unknown) date) Location Rt unknown) brachial (unknown) (no (unknown) (unknown) CHEST: Normal (units ( unknown) date) respiratory effort unknown) (unknown) (no (unknown) (unknown) COUGHING (units (unkno wn) date) unknown) (unknown) (no (unknown) (unknown) Chief Complaint: (units (unknown) date) BP f/u unknown) (unknown) (no (unknown) (unknown) Chronic back pain (units (unknown) date) unknown) (unknown) (no (unknown) (unknown) Complete Blood (units ( unknown) date) Count AUTO DIFF 5 unknown) Months E11.9 - Type 2 diabetes mellitus without (unknown) (no (unknown) (unknown) Comprehensive (units ( unknown) date) Metabolic Panel 5 unknown) Months E11.9 - Type 2 diabetes mellitus without (unknown) (no (unknown) (unknown) Confirmed (units (unkn own) date) 09/26/22] unknown) (unknown) (no (unknown) (unknown) Constitutional: (units (unknown) date) Negative.? unknown) (unknown) (no (unknown) (unknown) : 1935 (units (unknown) date) Acct:[id number] unknown) (unknown) (no (unknown) (unknown) Dept at (units (unkno wn) date) . unknown) (unknown) (no (unknown) (unknown) Documented By: (units (unknown) date) Irma Holder unknown) 09/26/22 1356 (unknown) (no (unknown) (unknown) Draft (units (unkno wn) date) unknown) (unknown) (no (unknown) (unknown) EYES: PERRL, EOMI (units (unknown) date) and nonicteric unknown) (unknown) (no (unknown) (unknown) Family Practice (units (unknown) date) Office Visit unknown) (unknown) (no (unknown) (unknown) [facility]) (unknown) (no (unknown) (unknown) GENERAL: Well (units ( unknown) date) developed, well unknown) nourished.? Cooperative with exam.? Patient is in (unknown) (no (unknown) (unknown) GERD (units (unkno wn) date) (gastroesophageal unknown) reflux disease) (unknown) (no (unknown) (unknown) HEAD: Atraumatic, (units (unknown) date) Normocephalic unknown) (unknown) (no (unknown) (unknown) HEART RACING (units (u nknown) date) unknown) (unknown) (no (unknown) (unknown) Hearing loss (units (u nknown) date) unknown) (unknown) (no (unknown) (unknown) Height 5 ft 7 in (units (unknown) date) unknown) (unknown) (no (unknown) (unknown) Hemoglobin A1C% w (units (unknown) date) Est Avg Glu 5 unknown) Months E11.9 - Type 2 diabetes mellitus without (unknown) (no (unknown) (unknown) History of total (units (unknown) date) hip replacement unknown) (unknown) (no (unknown) (unknown) History of urinary (units (unknown) date) incontinence unknown) (unknown) (no (unknown) (unknown) I reviewed the (units (unknown) date) patient's Past unknown) Medical History, Problem List, Medications and (unknown) (no (unknown) (unknown) Intake (units (unkno wn) date) unknown) (unknown) (no (unknown) (unknown) Lipid Panel 5 (units (u nknown) date) Months E11.9 - 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, I10 (unknown) (no (unknown) (unknown) Loc: [facility] (units (unkno wn) date) unknown) (unknown) (no (unknown) (unknown) [id number] (units (unk nown) date) unknown) (unknown) (no (unknown) (unknown) MUSCLE ACHES AND (units (unknown) date) WEIGHT LOSS unknown) (unknown) (no (unknown) (unknown) MUSKULOSKELETAL: (units (unknown) date) using a walker unknown) (unknown) (no (unknown) (unknown) Medical History (units (unknown) date) (Updated 09/26/22 @ unknown) 14:31 by Irma Holder DO) (unknown) (no (unknown) (unknown) Medications (units (un known) date) unknown) (unknown) (no (unknown) (unknown) Medications: (units (u nknown) date) Reconciled unknown) (unknown) (no (unknown) (unknown) NECK: Full range (units (unknown) date) of motion, unknown) lymphadenopathy absent, supple (unknown) (no (unknown) (unknown) NEURO EXAM: Alert (units (unknown) date) and oriented x 3.? unknown) (unknown) (no (unknown) (unknown) Note (units (unkno wn) date) unknown) (unknown) (no (unknown) (unknown) Note: (units (unkno wn) date) unknown) (unknown) (no (unknown) (unknown) Notes (units (unkno wn) date) unknown) (unknown) (no (unknown) (unknown) Objective: (units (unk nown) date) unknown) (unknown) (no (unknown) (unknown) Orders (units (unkno wn) date) unknown) (unknown) (no (unknown) (unknown) Orders: (units (unkno wn) date) unknown) (unknown) (no (unknown) (unknown) Osteoarthritis (units (unknown) date) unknown) (unknown) (no (unknown) (unknown) Osteoporosis (units (u nknown) date) unknown) (unknown) (no (unknown) (unknown) Oxygen Delivery (units (unknown) date) Method room air unknown) (unknown) (no (unknown) (unknown) PFSH (units (unkno wn) date) unknown) (unknown) (no (unknown) (unknown) PSYCH: judgement (units (unknown) date) normal, orientation unknown) normal, affect/mood normal and memory (unknown) (no (unknown) (unknown) Patient: (units (unkno wn) date) Rosita Devi L unknown) MR#: (unknown) (no (unknown) (unknown) Plan (units (unkno wn) date) unknown) (unknown) (no (unknown) (unknown) Position Sitting (units (unknown) date) unknown) (unknown) (no (unknown) (unknown) Pulmonary fibrosis (units (unknown) date) unknown) (unknown) (no (unknown) (unknown) Pulse 94 H (units (unk nown) date) unknown) (unknown) (no (unknown) (unknown) Pulse Oximetry (%) (units (unknown) date) 98 unknown) (unknown) (no (unknown) (unknown) Pulse Source (units (u nknown) date) Monitor unknown) (unknown) (no (unknown) (unknown) Reason For Visit (units (unknown) date) unknown) (unknown) (no (unknown) (unknown) Respiratory: (units (u nknown) date) Negative.? unknown) (unknown) (no (unknown) (unknown) Review of Systems: (units (unknown) date) unknown) (unknown) (no (unknown) (unknown) SKIN:? No rashes (units (unknown) date) on face or arms. unknown) (unknown) (no (unknown) (unknown) SVT (units (unkno wn) date) (supraventricular unknown) tachycardia) (unknown) (no (unknown) (unknown) Shoulder pain (units ( unknown) date) unknown) (unknown) (no (unknown) (unknown) Signed By: (units (unk nown) date) unknown) (unknown) (no (unknown) (unknown) Sleep apnea (units (un known) date) unknown) (unknown) (no (unknown) (unknown) Smoking Status: (units (unknown) date) Former smoker unknown) (unknown) (no (unknown) (unknown) Social History (units (unknown) date) (including tobacco unknown) use status). (unknown) (no (unknown) (unknown) Social History (units (unknown) date) unknown) (unknown) (no (unknown) (unknown) [id number]-WmQ (units (unknown) date) Reductase Inhibitor unknown) [[id number] REDUCTASE INHIBITOR] (unknown) (no (unknown) (unknown) Status: Acute (units ( unknown) date) unknown) (unknown) (no (unknown) (unknown) Subjective: (units (un known) date) unknown) (unknown) (no (unknown) (unknown) Surgical History (units (unknown) date) (Updated 06/14/22 @ unknown) 22:24 by Sherita Carreno) (unknown) (no (unknown) (unknown) Temp 96.6 F L (units ( unknown) date) unknown) (unknown) (no (unknown) (unknown) Temp Source Skin (units (unknown) date) unknown) (unknown) (no (unknown) (unknown) This note may have (units (unknown) date) been all or unknown) partially generated using voice recognition (unknown) (no (unknown) (unknown) Tobacco + (units (unkn own) date) Substance Use unknown) (unknown) (no (unknown) (unknown) Tobacco Status (units (unknown) date) unknown) (unknown) (no (unknown) (unknown) 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, 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 insulin use (unknown) (no (unknown) (unknown) 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 There may be (unknown) (no (unknown) (unknown) Weight 141 lb 4 oz (units (unknown) date) unknown) (unknown) (no (unknown) (unknown) acetaminophen 500 (units (unknown) date) mg tablet (Tylenol unknown) Extra Strength) 500 mg PO Q6HP PRN pain ##0 (unknown) (no (unknown) (unknown) adjusting her (units ( unknown) date) medications unknown) further. (unknown) (no (unknown) (unknown) alendronate 70 mg (units (unknown) date) tablet (Fosamax) 70 unknown) mg PO QWEEK 09/26/22 [History Confirmed (unknown) (no (unknown) (unknown) alendronate sodium (units (unknown) date) [From FOSAMAX] unknown) Adverse Reaction (Intermediate, Verified (unknown) (no (unknown) (unknown) complications, I10 (units (unknown) date) - Essential unknown) (primary) hypertension, I47.1 - Supraventricular (unknown) (no (unknown) (unknown) complications, (units (unknown) date) I47.1 - unknown) Supraventricular tachycardia, J84.10 - Pulmonary (unknown) (no (unknown) (unknown) dose. (units (unkno wn) date) unknown) (unknown) (no (unknown) (unknown) ezetimibe [From (units (unknown) date) ZETIA] Adverse unknown) Reaction (Mild, Verified 08/24/22 14:08) (unknown) (no (unknown) (unknown) fibrosis, (units (unkn own) date) unspecified unknown) (unknown) (no (unknown) (unknown) glimepiride 1 mg (units (unknown) date) tablet (Amaryl) 1 unknown) mg PO DAILY #0 tabs 09/26/22 [History (unknown) (no (unknown) (unknown) have a few (units (unk nown) date) episodes of unknown) increased HR but it does not affect her. (unknown) (no (unknown) (unknown) have occurred. If (units (unknown) date) there are any unknown) questions, please contact the Medical Records (unknown) (no (unknown) (unknown) household members: (units (unknown) date) spouse unknown) (unknown) (no (unknown) (unknown) hydrocodone 5 (units (u nknown) date) mg-acetaminophen unknown) 325 mg tablet 0.5 - 1 tab PO BEDTIME PRN pain #30 (unknown) (no (unknown) (unknown) like to hold off (units (unknown) date) at this point. She unknown) will continue to monitor her symptoms and (unknown) (no (unknown) (unknown) losartan 100 mg (units (unknown) date) tablet 100 mg PO unknown) DAILY blood pressure #90 tabs 08/24/22 [Rx (unknown) (no (unknown) (unknown) may occur. (units (unk nown) date) Occasional unknown) wrong-word or 'sound-alike' substitutions may have (unknown) (no (unknown) (unknown) mg and her bp is (units (unknown) date) at goal. HR is on unknown) the upper end of normal. she continues to (unknown) (no (unknown) (unknown) no apparent (units (un known) date) distress. unknown) (unknown) (no (unknown) (unknown) no uti symptoms. (units (unknown) date) unknown) (unknown) (no (unknown) (unknown) normal (units (unkno wn) date) unknown) (unknown) (no (unknown) (unknown) occurred due to (units (unknown) date) the inherent unknown) limitations of voice recognition software. Please (unknown) (no (unknown) (unknown) omeprazole [From (units (unknown) date) PRILOSEC] Adverse unknown) Reaction (Intermediate, Verified 08/24/22 (unknown) (no (unknown) (unknown) oxygen #1 ea (units (u nknown) date) 06/17/22 [Rx unknown) Confirmed 09/26/22] (unknown) (no (unknown) (unknown) oxygen (units (unkno wn) date) concentrator #1 ea unknown) 08/18/22 [Rx Confirmed 09/26/22] (unknown) (no (unknown) (unknown) pantoprazole 40 mg (units (unknown) date) tablet,delayed unknown) release 40 mg PO DAILY Hiatal hernia--gerd (unknown) (no (unknown) (unknown) plant stanol tim (units (unknown) date) 450 mg tablet unknown) (Cholest Off) 1 tab PO QAM 05/17/18 [History (unknown) (no (unknown) (unknown) possibly adding a (units (unknown) date) low-dose unknown) beta-josé miguel to help control heart rate. She would (unknown) (no (unknown) (unknown) pt is here to f/u (units (unknown) date) on several issues. unknown) (unknown) (no (unknown) (unknown) read the note (units ( unknown) date) carefully and unknown) recognize, using context, where these substitutions (unknown) (no (unknown) (unknown) see if they really (units (unknown) date) affect her that unknown) much. (unknown) (no (unknown) (unknown) software. 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) without complication, 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 insulin (unknown) (no (unknown) (unknown) (4) Pulmonary (units ( unknown) date) fibrosis: unknown) (unknown) (no (unknown) (unknown) - Essential (units (unk nown) date) (primary) unknown) hypertension, I47.1 - Supraventricular tachycardia, J84.10 (unknown) (no (unknown) (unknown) - Pulmonary (units (un known) date) fibrosis, unknown) unspecified (unknown) (no (unknown) (unknown) -follow up in December (units (unknown) date) for annual wellness unknown) visit (unknown) (no (unknown) (unknown) 08/24/22 14:08) (units (unknown) date) unknown) (unknown) (no (unknown) (unknown) 09/26/22 [History (units (unknown) date) Confirmed 09/26/22] unknown) (unknown) (no (unknown) (unknown) 09/26/22 (units (unkno wn) date) unknown) (unknown) (no (unknown) (unknown) 09/26/22] (units (unkn own) date) unknown) (unknown) (no (unknown) (unknown) 1. Blood pressure (units (unknown) date) is at goal with the unknown) increasing the losartan. Continue current (unknown) (no (unknown) (unknown) 1. her bp is well (units (unknown) date) controlled at this unknown) point. we increased her losartan to 100 (unknown) (no (unknown) (unknown) 05/24/17 [History (units (unknown) date) Confirmed 09/26/22] unknown) (unknown) (no (unknown) (unknown) 14:00 (units (unkno wn) date) unknown) (unknown) (no (unknown) (unknown) 14:08) (units (unkno wn) date) unknown) (unknown) (no (unknown) (unknown) 2. Reviewed her (units (unknown) date) ZIO patch. She does unknown) have some episodes SVT. We discussed (unknown) (no (unknown) (unknown) 2. she is using (units (unknown) date) her oxygen at all unknown) times. she feels better at this point. (unknown) (no (unknown) (unknown) 3. Has not well (units (unknown) date) controlled in the unknown) past. If her A1c is greater than 7.5 consider (unknown) (no (unknown) (unknown) 3. she states she (units (unknown) date) has issues with unknown) urinary incontinence which worsens at 5 am. (unknown) (no (unknown) (unknown) 4. Improved with (units (unknown) date) regular oxygen use. unknown) (unknown) (no (unknown) (unknown) Adverse Reaction (units (unknown) date) (Intermediate, unknown) Verified 08/24/22 14:08) (unknown) (no (unknown) (unknown) Age/Sex: 86 / F (units (unknown) date) Date of Service: unknown) (unknown) (no (unknown) (unknown) Allergies (units (unkn own) date) unknown) (unknown) (no (unknown) (unknown) Allergies: (units (unk nown) date) Reviewed unknown) (unknown) (no (unknown) (unknown) [place], [place] (units ( unknown) date) [id number] unknown) (unknown) (no (unknown) (unknown) Anesthesia (units (unk nown) date) unknown) (unknown) (no (unknown) (unknown) Assessment + Plan (units (unknown) date) unknown) (unknown) (no (unknown) (unknown) Attending Dr: Irma (units (unknown) date) Glory Wiseman unknown) (unknown) (no (unknown) (unknown) BMI 22.1 (units (unkno wn) date) unknown) (unknown) (no (unknown) (unknown) BP 132/80 (units (unkn own) date) unknown) (unknown) (no (unknown) (unknown) Benign essential (units (unknown) date) HTN unknown) (unknown) (no (unknown) (unknown) Blood Pressure (units (unknown) date) Location Rt unknown) brachial (unknown) (no (unknown) (unknown) CHEST: Normal (units ( unknown) date) respiratory effort unknown) (unknown) (no (unknown) (unknown) COUGHING (units (unkno wn) date) unknown) (unknown) (no (unknown) (unknown) Chief Complaint: (units (unknown) date) BP f/u unknown) (unknown) (no (unknown) (unknown) Chronic back pain (units (unknown) date) unknown) (unknown) (no (unknown) (unknown) Complete Blood (units ( unknown) date) Count AUTO DIFF 5 unknown) Months E11.9 - Type 2 diabetes mellitus without (unknown) (no (unknown) (unknown) Comprehensive (units ( unknown) date) Metabolic Panel 5 unknown) Months E11.9 - Type 2 diabetes mellitus without (unknown) (no (unknown) (unknown) Confirmed (units (unkn own) date) 02/13/23] unknown) (unknown) (no (unknown) (unknown) Constitutional: (units (unknown) date) Negative.? unknown) (unknown) (no (unknown) (unknown) : 1935 (units (unknown) date) Acct:[id number] unknown) (unknown) (no (unknown) (unknown) Dept at (units (unkno wn) date) . unknown) (unknown) (no (unknown) (unknown) Documented By: (units (unknown) date) Irma Holder unknown) 09/26/22 1356 (unknown) (no (unknown) (unknown) Draft (units (unkno wn) date) unknown) (unknown) (no (unknown) (unknown) EYES: PERRL, EOMI (units (unknown) date) and nonicteric unknown) (unknown) (no (unknown) (unknown) Family Practice (units (unknown) date) Office Visit unknown) (unknown) (no (unknown) (unknown) [facility] (units ([facility] date[facility]) (unknown) (no (unknown) (unknown) GENERAL: Well (units ( unknown) date) developed, well unknown) nourished.? Cooperative with exam.? Patient is in (unknown) (no (unknown) (unknown) GERD (units (unkno wn) date) (gastroesophageal unknown) reflux disease) (unknown) (no (unknown) (unknown) HEAD: Atraumatic, (units (unknown) date) Normocephalic unknown) (unknown) (no (unknown) (unknown) HEART RACING (units (u nknown) date) unknown) (unknown) (no (unknown) (unknown) Hearing loss (units (u nknown) date) unknown) (unknown) (no (unknown) (unknown) Height 5 ft 7 in (units (unknown) date) unknown) (unknown) (no (unknown) (unknown) Hemoglobin A1C% w (units (unknown) date) Est Avg Glu 5 unknown) Months E11.9 - Type 2 diabetes mellitus without (unknown) (no (unknown) (unknown) History of total (units (unknown) date) hip replacement unknown) (unknown) (no (unknown) (unknown) History of urinary (units (unknown) date) incontinence unknown) (unknown) (no (unknown) (unknown) I reviewed the (units (unknown) date) patient's Past unknown) Medical History, Problem List, Medications and (unknown) (no (unknown) (unknown) Intake (units (unkno wn) date) unknown) (unknown) (no (unknown) (unknown) Lipid Panel 5 (units (u nknown) date) Months E11.9 - 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, I10 (unknown) (no (unknown) (unknown) Loc: [facility] (units (unkno wn) date) unknown) (unknown) (no (unknown) (unknown) [id number] (units (unk nown) date) unknown) (unknown) (no (unknown) (unknown) MUSCLE ACHES AND (units (unknown) date) WEIGHT LOSS unknown) (unknown) (no (unknown) (unknown) MUSKULOSKELETAL: (units (unknown) date) using a walker unknown) (unknown) (no (unknown) (unknown) Medical History (units (unknown) date) (Updated 09/26/22 @ unknown) 14:31 by Irma Holder DO) (unknown) (no (unknown) (unknown) Medications (units (un known) date) unknown) (unknown) (no (unknown) (unknown) Medications: (units (u nknown) date) Reconciled unknown) (unknown) (no (unknown) (unknown) NECK: Full range (units (unknown) date) of motion, unknown) lymphadenopathy absent, supple (unknown) (no (unknown) (unknown) NEURO EXAM: Alert (units (unknown) date) and oriented x 3.? unknown) (unknown) (no (unknown) (unknown) Note (units (unkno wn) date) unknown) (unknown) (no (unknown) (unknown) Note: (units (unkno wn) date) unknown) (unknown) (no (unknown) (unknown) Notes (units (unkno wn) date) unknown) (unknown) (no (unknown) (unknown) Objective: (units (unk nown) date) unknown) (unknown) (no (unknown) (unknown) Orders (units (unkno wn) date) unknown) (unknown) (no (unknown) (unknown) Orders: (units (unkno wn) date) unknown) (unknown) (no (unknown) (unknown) Osteoarthritis (units (unknown) date) unknown) (unknown) (no (unknown) (unknown) Osteoporosis (units (u nknown) date) unknown) (unknown) (no (unknown) (unknown) Oxygen Delivery (units (unknown) date) Method room air unknown) (unknown) (no (unknown) (unknown) PFSH (units (unkno wn) date) unknown) (unknown) (no (unknown) (unknown) PSYCH: judgement (units (unknown) date) normal, orientation unknown) normal, affect/mood normal and memory (unknown) (no (unknown) (unknown) Patient: (units (unkno wn) date) Rosita Devi unknown) MR#: (unknown) (no (unknown) (unknown) Plan (units (unkno wn) date) unknown) (unknown) (no (unknown) (unknown) Position Sitting (units (unknown) date) unknown) (unknown) (no (unknown) (unknown) Pulmonary fibrosis (units (unknown) date) unknown) (unknown) (no (unknown) (unknown) Pulse 94 H (units (unk nown) date) unknown) (unknown) (no (unknown) (unknown) Pulse Oximetry (%) (units (unknown) date) 98 unknown) (unknown) (no (unknown) (unknown) Pulse Source (units (u nknown) date) Monitor unknown) (unknown) (no (unknown) (unknown) Reason For Visit (units (unknown) date) unknown) (unknown) (no (unknown) (unknown) Respiratory: (units (u nknown) date) Negative.? unknown) (unknown) (no (unknown) (unknown) Review of Systems: (units (unknown) date) unknown) (unknown) (no (unknown) (unknown) SKIN:? No rashes (units (unknown) date) on face or arms. unknown) (unknown) (no (unknown) (unknown) SVT (units (unkno wn) date) (supraventricular unknown) tachycardia) (unknown) (no (unknown) (unknown) Shoulder pain (units ( unknown) date) unknown) (unknown) (no (unknown) (unknown) Signed By: (units (unk nown) date) unknown) (unknown) (no (unknown) (unknown) Sleep apnea (units (un known) date) unknown) (unknown) (no (unknown) (unknown) Smoking Status: (units (unknown) date) Former smoker unknown) (unknown) (no (unknown) (unknown) Social History (units (unknown) date) (including tobacco unknown) use status). (unknown) (no (unknown) (unknown) Social History (units (unknown) date) unknown) (unknown) (no (unknown) (unknown) [id number]-UUI-PtN (units (unknown) date) Reductase Inhibitor unknown) [[id number] REDUCTASE INHIBITOR] (unknown) (no (unknown) (unknown) Status: Acute (units ( unknown) date) unknown) (unknown) (no (unknown) (unknown) Subjective: (units (un known) date) unknown) (unknown) (no (unknown) (unknown) Surgical History (units (unknown) date) (Updated 06/14/22 @ unknown) 22:24 by Sherita Carreon) (unknown) (no (unknown) (unknown) Temp 96.6 F L (units ( unknown) date) unknown) (unknown) (no (unknown) (unknown) Temp Source Skin (units (unknown) date) unknown) (unknown) (no (unknown) (unknown) This note may have (units (unknown) date) been all or unknown) partially generated using voice recognition (unknown) (no (unknown) (unknown) Tobacco + (units (unkn own) date) Substance Use unknown) (unknown) (no (unknown) (unknown) Tobacco Status (units (unknown) date) unknown) (unknown) (no (unknown) (unknown) 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, 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 insulin use (unknown) (no (unknown) (unknown) 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 There may be (unknown) (no (unknown) (unknown) Weight 141 lb 4 oz (units (unknown) date) unknown) (unknown) (no (unknown) (unknown) acetaminophen 500 (units (unknown) date) mg tablet (Tylenol unknown) Extra Strength) 500 mg PO Q6HP PRN pain ##0 (unknown) (no (unknown) (unknown) adjusting her (units ( unknown) date) medications unknown) further. (unknown) (no (unknown) (unknown) alendronate 70 mg (units (unknown) date) tablet (Fosamax) 70 unknown) mg PO QWEEK 09/26/22 [History Confirmed (unknown) (no (unknown) (unknown) alendronate sodium (units (unknown) date) [From FOSAMAX] unknown) Adverse Reaction (Intermediate, Verified (unknown) (no (unknown) (unknown) complications, I10 (units (unknown) date) - Essential unknown) (primary) hypertension, I47.1 - Supraventricular (unknown) (no (unknown) (unknown) complications, (units (unknown) date) I47.1 - unknown) Supraventricular tachycardia, J84.10 - Pulmonary (unknown) (no (unknown) (unknown) dose. (units (unkno wn) date) unknown) (unknown) (no (unknown) (unknown) ezetimibe [From (units (unknown) date) ZETIA] Adverse unknown) Reaction (Mild, Verified 08/24/22 14:08) (unknown) (no (unknown) (unknown) fibrosis, (units (unkn own) date) unspecified unknown) (unknown) (no (unknown) (unknown) glimepiride 1 mg (units (unknown) date) tablet (Amaryl) 1 unknown) mg PO DAILY #0 tabs 09/26/22 [History (unknown) (no (unknown) (unknown) have a few (units (unk nown) date) episodes of unknown) increased HR but it does not affect her. (unknown) (no (unknown) (unknown) have occurred. If (units (unknown) date) there are any unknown) questions, please contact the Medical Records (unknown) (no (unknown) (unknown) household members: (units (unknown) date) spouse unknown) (unknown) (no (unknown) (unknown) hydrocodone 5 (units (u nknown) date) mg-acetaminophen unknown) 325 mg tablet 0.5 - 1 tab PO BEDTIME PRN pain #30 (unknown) (no (unknown) (unknown) like to hold off (units (unknown) date) at this point. She unknown) will continue to monitor her symptoms and (unknown) (no (unknown) (unknown) losartan 100 mg (units (unknown) date) tablet 100 mg PO unknown) DAILY blood pressure #90 tabs 08/24/22 [Rx (unknown) (no (unknown) (unknown) may occur. (units (unk nown) date) Occasional unknown) wrong-word or 'sound-alike' substitutions may have (unknown) (no (unknown) (unknown) mg and her bp is (units (unknown) date) at goal. HR is on unknown) the upper end of normal. she continues to (unknown) (no (unknown) (unknown) no apparent (units (un known) date) distress. unknown) (unknown) (no (unknown) (unknown) no uti symptoms. (units (unknown) date) unknown) (unknown) (no (unknown) (unknown) normal (units (unkno wn) date) unknown) (unknown) (no (unknown) (unknown) occurred due to (units (unknown) date) the inherent unknown) limitations of voice recognition software. Please (unknown) (no (unknown) (unknown) omeprazole [From (units (unknown) date) PRILOSEC] Adverse unknown) Reaction (Intermediate, Verified 08/24/22 (unknown) (no (unknown) (unknown) oxygen #1 ea (units (u nknown) date) 06/17/22 [Rx unknown) Confirmed 09/26/22] (unknown) (no (unknown) (unknown) oxygen (units (unkno wn) date) concentrator #1 ea unknown) 08/18/22 [Rx Confirmed 09/26/22] (unknown) (no (unknown) (unknown) pantoprazole 40 mg (units (unknown) date) tablet,delayed unknown) release 40 mg PO DAILY Hiatal hernia--gerd (unknown) (no (unknown) (unknown) plant stanol tim (units (unknown) date) 450 mg tablet unknown) (Cholest Off) 1 tab PO QAM 05/17/18 [History (unknown) (no (unknown) (unknown) possibly adding a (units (unknown) date) low-dose unknown) beta-josé miguel to help control heart rate. She would (unknown) (no (unknown) (unknown) pt is here to f/u (units (unknown) date) on several issues. unknown) (unknown) (no (unknown) (unknown) read the note (units ( unknown) date) carefully and unknown) recognize, using context, where these substitutions (unknown) (no (unknown) (unknown) see if they really (units (unknown) date) affect her that unknown) much. (unknown) (no (unknown) (unknown) software. 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 complication, 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 insulin (unknown) (no (unknown) (unknown) (4) Pulmonary (units ( unknown) date) fibrosis: unknown) (unknown) (no (unknown) (unknown) - Essential (units (unk nown) date) (primary) unknown) hypertension, I47.1 - Supraventricular tachycardia, J84.10 (unknown) (no (unknown) (unknown) - Pulmonary (units (un known) date) fibrosis, unknown) unspecified (unknown) (no (unknown) (unknown) -follow up in December (units (unknown) date) for annual wellness unknown) visit (unknown) (no (unknown) (unknown) 08/24/22 14:08) (units (unknown) date) unknown) (unknown) (no (unknown) (unknown) 09/26/22 1500 (units ( unknown) date) unknown) (unknown) (no (unknown) (unknown) 09/26/22 [History (units (unknown) date) Confirmed 09/26/22] unknown) (unknown) (no (unknown) (unknown) 09/26/22 (units (unkno wn) date) unknown) (unknown) (no (unknown) (unknown) 09/26/22] (units (unkn own) date) unknown) (unknown) (no (unknown) (unknown) 1. Blood pressure (units (unknown) date) is at goal with the unknown) increasing the losartan. Continue current (unknown) (no (unknown) (unknown) 1. her bp is well (units (unknown) date) controlled at this unknown) point. we increased her losartan to 100 (unknown) (no (unknown) (unknown) 05/24/17 [History (units (unknown) date) Confirmed 09/26/22] unknown) (unknown) (no (unknown) (unknown) 14:00 (units (unkno wn) date) unknown) (unknown) (no (unknown) (unknown) 14:08) (units (unkno wn) date) unknown) (unknown) (no (unknown) (unknown) 2. Reviewed her (units (unknown) date) ZIO patch. She does unknown) have some episodes SVT. We discussed (unknown) (no (unknown) (unknown) 2. she is using (units (unknown) date) her oxygen at all unknown) times. she feels better at this point. (unknown) (no (unknown) (unknown) 3. Has not well (units (unknown) date) controlled in the unknown) past. If her A1c is greater than 7.5 consider (unknown) (no (unknown) (unknown) 3. she states she (units (unknown) date) has issues with unknown) urinary incontinence which worsens at 5 am. (unknown) (no (unknown) (unknown) 4. Improved with (units (unknown) date) regular oxygen use. unknown) (unknown) (no (unknown) (unknown) Adverse Reaction (units (unknown) date) (Intermediate, unknown) Verified 08/24/22 14:08) (unknown) (no (unknown) (unknown) Age/Sex: 86 / F (units (unknown) date) Date of Service: unknown) (unknown) (no (unknown) (unknown) Allergies (units (unkn own) date) unknown) (unknown) (no (unknown) (unknown) Allergies: (units (unk nown) date) Reviewed unknown) (unknown) (no (unknown) (unknown) [place] (units ( unknown) date) [id number] unknown) (unknown) (no (unknown) (unknown) Anesthesia (units (unk nown) date) unknown) (unknown) (no (unknown) (unknown) Assessment + Plan (units (unknown) date) unknown) (unknown) (no (unknown) (unknown) Attending Dr: Irma (units (unknown) date) Glory D.OPower unknown) (unknown) (no (unknown) (unknown) BMI 22.1 (units (unkno wn) date) unknown) (unknown) (no (unknown) (unknown) BP 132/80 (units (unkn own) date) unknown) (unknown) (no (unknown) (unknown) Benign essential (units (unknown) date) HTN unknown) (unknown) (no (unknown) (unknown) Blood Pressure (units (unknown) date) Location Rt unknown) brachial (unknown) (no (unknown) (unknown) CHEST: Normal (units ( unknown) date) respiratory effort unknown) (unknown) (no (unknown) (unknown) COUGHING (units (unkno wn) date) unknown) (unknown) (no (unknown) (unknown) Chief Complaint: (units (unknown) date) BP f/u unknown) (unknown) (no (unknown) (unknown) Chronic back pain (units (unknown) date) unknown) (unknown) (no (unknown) (unknown) Complete Blood (units ( unknown) date) Count AUTO DIFF 5 unknown) Months E11.9 - Type 2 diabetes mellitus without (unknown) (no (unknown) (unknown) Comprehensive (units ( unknown) date) Metabolic Panel 5 unknown) Months E11.9 - Type 2 diabetes mellitus without (unknown) (no (unknown) (unknown) Confirmed (units (unkn own) date) 09/26/22] unknown) (unknown) (no (unknown) (unknown) Constitutional: (units (unknown) date) Negative.? unknown) (unknown) (no (unknown) (unknown) : 1935 (units (unknown) date) Acct:[id number] unknown) (unknown) (no (unknown) (unknown) Dept at (units (unkno wn) date) . unknown) (unknown) (no (unknown) (unknown) Documented By: (units (unknown) date) Irma Holder unknown) 09/26/22 1356 (unknown) (no (unknown) (unknown) EYES: PERRL, EOMI (units (unknown) date) and nonicteric unknown) (unknown) (no (unknown) (unknown) [facility] (units (unknown) date) Office Visit unknown) (unknown) (no (unknown) (unknown) [facility]) (unknown) (no (unknown) (unknown) GENERAL: Well (units ( unknown) date) developed, well unknown) nourished.? Cooperative with exam.? Patient is in (unknown) (no (unknown) (unknown) GERD (units (unkno wn) date) (gastroesophageal unknown) reflux disease) (unknown) (no (unknown) (unknown) HEAD: Atraumatic, (units (unknown) date) Normocephalic unknown) (unknown) (no (unknown) (unknown) HEART RACING (units (u nknown) date) unknown) (unknown) (no (unknown) (unknown) Hearing loss (units (u nknown) date) unknown) (unknown) (no (unknown) (unknown) Height 5 ft 7 in (units (unknown) date) unknown) (unknown) (no (unknown) (unknown) Hemoglobin A1C% w (units (unknown) date) Est Avg Glu 5 unknown) Months E11.9 - Type 2 diabetes mellitus without (unknown) (no (unknown) (unknown) History of total (units (unknown) date) hip replacement unknown) (unknown) (no (unknown) (unknown) History of urinary (units (unknown) date) incontinence unknown) (unknown) (no (unknown) (unknown) I reviewed the (units (unknown) date) patient's Past unknown) Medical History, Problem List, Medications and (unknown) (no (unknown) (unknown) Intake (units (unkno wn) date) unknown) (unknown) (no (unknown) (unknown) Lipid Panel 5 (units (u nknown) date) Months E11.9 - 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, I10 (unknown) (no (unknown) (unknown) Loc: [facility] (units (unkno wn) date) unknown) (unknown) (no (unknown) (unknown) [id number] (units (unk nown) date) unknown) (unknown) (no (unknown) (unknown) MUSCLE ACHES AND (units (unknown) date) WEIGHT LOSS unknown) (unknown) (no (unknown) (unknown) MUSKULOSKELETAL: (units (unknown) date) using a walker unknown) (unknown) (no (unknown) (unknown) Medical History (units (unknown) date) (Updated 09/26/22 @ unknown) 14:31 by Irma Holder DO) (unknown) (no (unknown) (unknown) Medications (units (un known) date) unknown) (unknown) (no (unknown) (unknown) Medications: (units (u nknown) date) Reconciled unknown) (unknown) (no (unknown) (unknown) NECK: Full range (units (unknown) date) of motion, unknown) lymphadenopathy absent, supple (unknown) (no (unknown) (unknown) NEURO EXAM: Alert (units (unknown) date) and oriented x 3.? unknown) (unknown) (no (unknown) (unknown) Note (units (unkno wn) date) unknown) (unknown) (no (unknown) (unknown) Note: (units (unkno wn) date) unknown) (unknown) (no (unknown) (unknown) Notes (units (unkno wn) date) unknown) (unknown) (no (unknown) (unknown) Objective: (units (unk nown) date) unknown) (unknown) (no (unknown) (unknown) Orders (units (unkno wn) date) unknown) (unknown) (no (unknown) (unknown) Orders: (units (unkno wn) date) unknown) (unknown) (no (unknown) (unknown) Osteoarthritis (units (unknown) date) unknown) (unknown) (no (unknown) (unknown) Osteoporosis (units (u nknown) date) unknown) (unknown) (no (unknown) (unknown) Oxygen Delivery (units (unknown) date) Method room air unknown) (unknown) (no (unknown) (unknown) PFSH (units (unkno wn) date) unknown) (unknown) (no (unknown) (unknown) PSYCH: judgement (units (unknown) date) normal, orientation unknown) normal, affect/mood normal and memory (unknown) (no (unknown) (unknown) Patient: (units (unkno wn) date) Rosita Devi L unknown) MR#: (unknown) (no (unknown) (unknown) Plan (units (unkno wn) date) unknown) (unknown) (no (unknown) (unknown) Position Sitting (units (unknown) date) unknown) (unknown) (no (unknown) (unknown) Pulmonary fibrosis (units (unknown) date) unknown) (unknown) (no (unknown) (unknown) Pulse 94 H (units (unk nown) date) unknown) (unknown) (no (unknown) (unknown) Pulse Oximetry (%) (units (unknown) date) 98 unknown) (unknown) (no (unknown) (unknown) Pulse Source (units (u nknown) date) Monitor unknown) (unknown) (no (unknown) (unknown) Reason For Visit (units (unknown) date) unknown) (unknown) (no (unknown) (unknown) Respiratory: (units (u nknown) date) Negative.? unknown) (unknown) (no (unknown) (unknown) Review of Systems: (units (unknown) date) unknown) (unknown) (no (unknown) (unknown) SKIN:? No rashes (units (unknown) date) on face or arms. unknown) (unknown) (no (unknown) (unknown) SVT (units (unkno wn) date) (supraventricular unknown) tachycardia) (unknown) (no (unknown) (unknown) Shoulder pain (units ( unknown) date) unknown) (unknown) (no (unknown) (unknown) Signed By: (units (unk nown) date) <Electronically unknown) signed by Irma Holder> (unknown) (no (unknown) (unknown) Signed (units (unkno wn) date) unknown) (unknown) (no (unknown) (unknown) Sleep apnea (units (un known) date) unknown) (unknown) (no (unknown) (unknown) Smoking Status: (units (unknown) date) Former smoker unknown) (unknown) (no (unknown) (unknown) Social History (units (unknown) date) (including tobacco unknown) use status). (unknown) (no (unknown) (unknown) Social History (units (unknown) date) unknown) (unknown) (no (unknown) (unknown) [id number] (units (unknown) date) Reductase Inhibitor unknown) [[id number] REDUCTASE INHIBITOR] (unknown) (no (unknown) (unknown) Status: Acute (units ( unknown) date) unknown) (unknown) (no (unknown) (unknown) Subjective: (units (un known) date) unknown) (unknown) (no (unknown) (unknown) Surgical History (units (unknown) date) (Updated 06/14/22 @ unknown) 22:24 by Sherita Carreon) (unknown) (no (unknown) (unknown) Temp 96.6 F L (units ( unknown) date) unknown) (unknown) (no (unknown) (unknown) Temp Source Skin (units (unknown) date) unknown) (unknown) (no (unknown) (unknown) This note may have (units (unknown) date) been all or unknown) partially generated using voice recognition (unknown) (no (unknown) (unknown) Tobacco + (units (unkn own) date) Substance Use unknown) (unknown) (no (unknown) (unknown) Tobacco Status (units (unknown) date) unknown) (unknown) (no (unknown) (unknown) 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, 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 insulin use (unknown) (no (unknown) (unknown) 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 There may be (unknown) (no (unknown) (unknown) Weight 141 lb 4 oz (units (unknown) date) unknown) (unknown) (no (unknown) (unknown) acetaminophen 500 (units (unknown) date) mg tablet (Tylenol unknown) Extra Strength) 500 mg PO Q6HP PRN pain ##0 (unknown) (no (unknown) (unknown) adjusting her (units ( unknown) date) medications unknown) further. (unknown) (no (unknown) (unknown) alendronate 70 mg (units (unknown) date) tablet (Fosamax) 70 unknown) mg PO QWEEK 09/26/22 [History Confirmed (unknown) (no (unknown) (unknown) alendronate sodium (units (unknown) date) [From FOSAMAX] unknown) Adverse Reaction (Intermediate, Verified (unknown) (no (unknown) (unknown) complications, I10 (units (unknown) date) - Essential unknown) (primary) hypertension, I47.1 - Supraventricular (unknown) (no (unknown) (unknown) complications, (units (unknown) date) I47.1 - unknown) Supraventricular tachycardia, J84.10 - Pulmonary (unknown) (no (unknown) (unknown) dose. (units (unkno wn) date) unknown) (unknown) (no (unknown) (unknown) ezetimibe [From (units (unknown) date) ZETIA] Adverse unknown) Reaction (Mild, Verified 08/24/22 14:08) (unknown) (no (unknown) (unknown) fibrosis, (units (unkn own) date) unspecified unknown) (unknown) (no (unknown) (unknown) glimepiride 1 mg (units (unknown) date) tablet (Amaryl) 1 unknown) mg PO DAILY #0 tabs 09/26/22 [History (unknown) (no (unknown) (unknown) have a few (units (unk nown) date) episodes of unknown) increased HR but it does not affect her. (unknown) (no (unknown) (unknown) have occurred. If (units (unknown) date) there are any unknown) questions, please contact the Medical Records (unknown) (no (unknown) (unknown) household members: (units (unknown) date) spouse unknown) (unknown) (no (unknown) (unknown) hydrocodone 5 (units (u nknown) date) mg-acetaminophen unknown) 325 mg tablet 0.5 - 1 tab PO BEDTIME PRN pain #30 (unknown) (no (unknown) (unknown) like to hold off (units (unknown) date) at this point. She unknown) will continue to monitor her symptoms and (unknown) (no (unknown) (unknown) losartan 100 mg (units (unknown) date) tablet 100 mg PO unknown) DAILY blood pressure #90 tabs 08/24/22 [Rx (unknown) (no (unknown) (unknown) may occur. (units (unk nown) date) Occasional unknown) wrong-word or 'sound-alike' substitutions may have (unknown) (no (unknown) (unknown) mg and her bp is (units (unknown) date) at goal. HR is on unknown) the upper end of normal. she continues to (unknown) (no (unknown) (unknown) no apparent (units (un known) date) distress. unknown) (unknown) (no (unknown) (unknown) no uti symptoms. (units (unknown) date) unknown) (unknown) (no (unknown) (unknown) normal (units (unkno wn) date) unknown) (unknown) (no (unknown) (unknown) occurred due to (units (unknown) date) the inherent unknown) limitations of voice recognition software. Please (unknown) (no (unknown) (unknown) omeprazole [From (units (unknown) date) PRILOSEC] Adverse unknown) Reaction (Intermediate, Verified 08/24/22 (unknown) (no (unknown) (unknown) oxygen #1 ea (units (u nknown) date) 06/17/22 [Rx unknown) Confirmed 09/26/22] (unknown) (no (unknown) (unknown) oxygen (units (unkno wn) date) concentrator #1 ea unknown) 08/18/22 [Rx Confirmed 09/26/22] (unknown) (no (unknown) (unknown) pantoprazole 40 mg (units (unknown) date) tablet,delayed unknown) release 40 mg PO DAILY Hiatal hernia--gerd (unknown) (no (unknown) (unknown) plant stanol tim (units (unknown) date) 450 mg tablet unknown) (Cholest Off) 1 tab PO QAM 05/17/18 [History (unknown) (no (unknown) (unknown) possibly adding a (units (unknown) date) low-dose unknown) beta-josé miguel to help control heart rate. She would (unknown) (no (unknown) (unknown) pt is here to f/u (units (unknown) date) on several issues. unknown) (unknown) (no (unknown) (unknown) read the note (units ( unknown) date) carefully and unknown) recognize, using context, where these substitutions (unknown) (no (unknown) (unknown) see if they really (units (unknown) date) affect her that unknown) much. (unknown) (no (unknown) (unknown) software. 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 unknown) (unknown) (no (unknown) (unknown) use: (units (unkno wn) date) unknown) Result panel 274 (unknown) (no (unknown) (unknown) (no value) (units (unk nown) date) unknown) (unknown) (no (unknown) (unknown) 09/28/22 (units (unkno wn) date) unknown) (unknown) (no (unknown) (unknown) 1. 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 (unknown) (no (unknown) (unknown) [address] (units (unkn own) date) Street unknown) (unknown) (no (unknown) (unknown) 2. Development (units (unknown) date) of masslike unknown) densities in the right lung. (unknown) (no (unknown) (unknown) 3. Large hiatal (units (unknown) date) hernia. unknown) (unknown) (no (unknown) (unknown) Accession (units (unkn own) date) Number: unknown) [id number] (unknown) (no (unknown) (unknown) Age/Sex: 86 / F (units (unknown) date) Date of Service: unknown) (unknown) (no (unknown) (unknown) [place], [place] (units ( unknown) date) [id number] unknown) (unknown) (no (unknown) (unknown) Approved by: (units (u nknown) date) pérez Cisse M.D. on 09/28/2022 at 12:20 (unknown) (no (unknown) (unknown) Bones and chest (units (unknown) date) wall: No unknown) suspicious bony lesions. Overlying soft tissues (unknown) (no (unknown) (unknown) COMPARISON: (units (un known) date) [facility], unknown) CT, CT CHEST WO [facility], 03/04/2022, 12:47. (unknown) (no (unknown) (unknown) Comment: (units (unkno wn) date) Recommend CT unknown) chest with contrast for further evaluation. (unknown) (no (unknown) (unknown) : 1935 (units (unknown) date) Acct:[id number] unknown) (unknown) (no (unknown) (unknown) Dictated by: (units (u nknown) date) alka Cisse) Jagdeep on 09/28/2022 at 12:18 (unknown) (no (unknown) (unknown) FINDINGS: (units (unkn own) date) unknown) (unknown) (no (unknown) (unknown) IMPRESSION: (units (un known) date) unknown) (unknown) (no (unknown) (unknown) INDICATIONS: (units (u nknown) date) chest pain unknown) (unknown) (no (unknown) (unknown) [facility] (units (unknown) date) unknown) (unknown) (no (unknown) (unknown) Loc: ED (units (unkno wn) date) unknown) (unknown) (no (unknown) (unknown) Lungs and (units (unkn own) date) pleura: unknown) Development of nodular densities in the right apex and right (unknown) (no (unknown) (unknown) [id number] (units (unk nown) date) unknown) (unknown) (no (unknown) (unknown) Mediastinum: (units (u nknown) date) Mediastinal unknown) contours appear normal. Heart size is normal. Large (unknown) (no (unknown) (unknown) Ordering (units (unkno wn) date) Provider: unknown) Chad Blanco MD (unknown) (no (unknown) (unknown) PROCEDURE: XR (units ( unknown) date) CHEST 1V unknown) (unknown) (no (unknown) (unknown) Patient: (units (unkno wn) date) Rosita Devi unknown) L MR#: (unknown) (no (unknown) (unknown) Procedure: XR (units ( unknown) date) chest 1V unknown) (unknown) (no (unknown) (unknown) Signed (units (unkno wn) date) unknown) (unknown) (no (unknown) (unknown) Surgical (units (unkno wn) date) changes and unknown) devices: None. (unknown) (no (unknown) (unknown) TECHNIQUE: One (units (unknown) date) view of the unknown) chest was acquired. (unknown) (no (unknown) (unknown) XRay Report (units (un known) date) unknown) (unknown) (no (unknown) (unknown) appear (units (unkno wn) date) unknown) (unknown) (no (unknown) (unknown) base. 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 (unknown) (no (unknown) (unknown) hernia. (units (unkno wn) date) unknown) (unknown) (no (unknown) (unknown) hiatal (units (unkno wn) date) unknown) (unknown) (no (unknown) (unknown) lung (units (unkno wn) date) unknown) (unknown) (no (unknown) (unknown) unremarkable. (units ( unknown) date) unknown) Result panel 275 (unknown) (no date) (unknown) (unknown) 0.9 % (unkn own) (unknown) (no date) (unknown) (unknown) 100 /ul (unkn own) (unknown) (no date) (unknown) (unknown) 1000 /ul (unkn own) (unknown) (no date) (unknown) (unknown) 12.2 g/dl (unkn own) (unknown) (no date) (unknown) (unknown) 12.9 x10 3/ul (unkn own) (unknown) (no date) (unknown) (unknown) 14.7 % (unkn own) (unknown) (no date) (unknown) (unknown) 15.3 % (unkn own) (unknown) (no date) (unknown) (unknown) 2000 /ul (unkn own) (unknown) (no date) (unknown) (unknown) 257 x10 3/ul (unkn own) (unknown) (no date) (unknown) (unknown) 3.5 % (unkn own) (unknown) (no date) (unknown) (unknown) 3.91 x10 6/ul (unkn own) (unknown) (no date) (unknown) (unknown) 31.2 pg (unkn own) (unknown) (no date) (unknown) (unknown) 33.7 % (unkn own) (unknown) (no date) (unknown) (unknown) 36.2 % (unkn own) (unknown) (no date) (unknown) (unknown) 500 /ul (unkn own) (unknown) (no date) (unknown) (unknown) 7.8 % (unkn own) (unknown) (no date) (unknown) (unknown) 72.5 % (unkn own) (unknown) (no date) (unknown) (unknown) 92.5 fl (unkn own) (unknown) (no date) (unknown) (unknown) 9400 /ul (unkn own) Result panel 276 (unknown) (no date) (unknown) (unknown) 1.0 (units unknown) (unknown) (unknown) (no date) (unknown) (unknown) 11.4 seconds (unkn own) Result panel 277 (unknown) (no date) (unknown) (unknown) 1.0 (units unknown) (unknown) (unknown) (no date) (unknown) (unknown) 11.4 seconds (unkn own) (unknown) (no date) (unknown) (unknown) 29 seconds (unkn own) (unknown) (no date) (unknown) (unknown) 29 seconds (unkn own) Result panel 278 (unknown) (no date) (unknown) (unknown) > 60 ml/min (unkn own) (unknown) (no date) (unknown) (unknown) > 60 ml/min (unkn own) (unknown) (no date) (unknown) (unknown) 0.5 mg/dl (unkn own) (unknown) (no date) (unknown) (unknown) 0.57 mg/dl (unkn own) (unknown) (no date) (unknown) (unknown) 1.0 (units (unkn own) unknown) (unknown) (no date) (unknown) (unknown) 1.7 mg/dl (unkn own) (unknown) (no date) (unknown) (unknown) 10.0 mg/dl (unkn own) (unknown) (no date) (unknown) (unknown) 102 mmol/l (unkn own) (unknown) (no date) (unknown) (unknown) 136 mmol/l (unkn own) (unknown) (no date) (unknown) (unknown) 17 mg/dl (unkn own) (unknown) (no date) (unknown) (unknown) 174 mg/dl (unkn own) (unknown) (no date) (unknown) (unknown) 174 mg/dl (unkn own) (unknown) (no date) (unknown) (unknown) 21 iu/l (unkn own) (unknown) (no date) (unknown) (unknown) 25 iu/l (unkn own) (unknown) (no date) (unknown) (unknown) 26 mmol/l (unkn own) (unknown) (no date) (unknown) (unknown) 29.8 (units (unkn own) unknown) (unknown) (no date) (unknown) (unknown) 4.1 mmol/l (unkn own) (unknown) (no date) (unknown) (unknown) 4.4 g/dl (unkn own) (unknown) (no date) (unknown) (unknown) 4.5 g/dl (unkn own) (unknown) (no date) (unknown) (unknown) 48 u/l (unkn own) (unknown) (no date) (unknown) (unknown) 52 u/l (unkn own) (unknown) (no date) (unknown) (unknown) 52 u/l (unkn own) (unknown) (no date) (unknown) (unknown) 8.9 g/dl (unkn own) (unknown) (no date) (unknown) (unknown) Test not % (unkn own) performed (unknown) (no date) (unknown) (unknown) Test not % (unkn own) performed (unknown) (no date) (unknown) (unknown) Test not ng/ml (unkn own) performed (unknown) (no date) (unknown) (unknown) Test not ng/ml (unkn own) performed Result panel 279 (unknown) (no date) (unknown) (unknown) > 60 ml/min (unkn own) (unknown) (no date) (unknown) (unknown) > 60 ml/min (unkn own) (unknown) (no date) (unknown) (unknown) < 0.012 ng/ml (unkn own) (unknown) (no date) (unknown) (unknown) < 0.012 ng/ml (unkn own) (unknown) (no date) (unknown) (unknown) 0.5 mg/dl (unkn own) (unknown) (no date) (unknown) (unknown) 0.57 mg/dl (unkn own) (unknown) (no date) (unknown) (unknown) 1.0 (units (unkn own) unknown) (unknown) (no date) (unknown) (unknown) 1.7 mg/dl (unkn own) (unknown) (no date) (unknown) (unknown) 10.0 mg/dl (unkn own) (unknown) (no date) (unknown) (unknown) 102 mmol/l (unkn own) (unknown) (no date) (unknown) (unknown) 136 mmol/l (unkn own) (unknown) (no date) (unknown) (unknown) 17 mg/dl (unkn own) (unknown) (no date) (unknown) (unknown) 174 mg/dl (unkn own) (unknown) (no date) (unknown) (unknown) 174 mg/dl (unkn own) (unknown) (no date) (unknown) (unknown) 21 iu/l (unkn own) (unknown) (no date) (unknown) (unknown) 25 iu/l (unkn own) (unknown) (no date) (unknown) (unknown) 26 mmol/l (unkn own) (unknown) (no date) (unknown) (unknown) 29.8 (units (unkn own) unknown) (unknown) (no date) (unknown) (unknown) 4.1 mmol/l (unkn own) (unknown) (no date) (unknown) (unknown) 4.4 g/dl (unkn own) (unknown) (no date) (unknown) (unknown) 4.5 g/dl (unkn own) (unknown) (no date) (unknown) (unknown) 48 u/l (unkn own) (unknown) (no date) (unknown) (unknown) 52 u/l (unkn own) (unknown) (no date) (unknown) (unknown) 52 u/l (unkn own) (unknown) (no date) (unknown) (unknown) 8.9 g/dl (unkn own) (unknown) (no date) (unknown) (unknown) Test not % (unkn own) performed (unknown) (no date) (unknown) (unknown) Test not % (unkn own) performed (unknown) (no date) (unknown) (unknown) Test not ng/ml (unkn own) performed (unknown) (no date) (unknown) (unknown) Test not ng/ml (unkn own) performed Result panel 280 (unknown) (no (unknown) (unknown) (no value) (units (unk nown) date) unknown) (unknown) (no (unknown) (unknown) (Cholest Off) (units ( unknown) date) unknown) (unknown) (no (unknown) (unknown) (DME) oxygen (units (u nknown) date) concentrator unknown) (unknown) (no (unknown) (unknown) (DME) oxygen (units (u nknown) date) unknown) (unknown) (no (unknown) (unknown) (Tylenol Extra (units (unknown) date) Strength) unknown) (unknown) (no (unknown) (unknown) 0.5 - 1 tab PO (units (unknown) date) BEDTIME PRN unknown) (Reason: pain) Qty: 30 0RF (unknown) (no (unknown) (unknown) 09/26/22 (units (unkno wn) date) unknown) (unknown) (no (unknown) (unknown) 09/28/22 (units (unkno wn) date) 09/28/22 09/28/22 unknown) Range/Units (unknown) (no (unknown) (unknown) 09/28/22 11:50 (units (unknown) date) unknown) (unknown) (no (unknown) (unknown) 09/28/22 11:56 (units (unknown) date) unknown) (unknown) (no (unknown) (unknown) 09/28/22 12:30 (units (unknown) date) unknown) (unknown) (no (unknown) (unknown) 09/28/22 14:00 (units (unknown) date) unknown) (unknown) (no (unknown) (unknown) 09/28/22 (units (unkno wn) date) unknown) (unknown) (no (unknown) (unknown) 1 mg PO DAILY (units ( unknown) date) Qty: 0 unknown) (unknown) (no (unknown) (unknown) 1 tab PO QAM (units (u nknown) date) unknown) (unknown) (no (unknown) (unknown) 100 mg PO DAILY (units (unknown) date) Qty: 90 3RF unknown) (unknown) (no (unknown) (unknown) 11:33 09/28/22 (units (unknown) date) unknown) (unknown) (no (unknown) (unknown) 11:42 09/28/22 (units (unknown) date) unknown) (unknown) (no (unknown) (unknown) 11:50 11:50 (units (un known) date) 11:50 unknown) (unknown) (no (unknown) (unknown) 12:00 (units (unkno wn) date) unknown) (unknown) (no (unknown) (unknown) 12:01 09/28/22 (units (unknown) date) unknown) (unknown) (no (unknown) (unknown) 12:01 (units (unkno wn) date) unknown) (unknown) (no (unknown) (unknown) 2L by NC with (units ( unknown) date) activity and unknown) while sleeping room air SaO2 95% at rest,room air (unknown) (no (unknown) (unknown) 40 mg PO DAILY (units (unknown) date) unknown) (unknown) (no (unknown) (unknown) 500 mg PO Q6HP (units (unknown) date) PRN (Reason: unknown) pain) Qty: 0 (unknown) (no (unknown) (unknown) 70 mg PO QWEEK (units (unknown) date) unknown) (unknown) (no (unknown) (unknown) ALT 21 (<35) (units (u nknown) date) IU/L unknown) (unknown) (no (unknown) (unknown) APTT 29 (26-36) (units (unknown) date) SECONDS unknown) (unknown) (no (unknown) (unknown) AST 25 (14-36) (units (unknown) date) IU/L unknown) (unknown) (no (unknown) (unknown) Age/Sex: 86 / F (units (unknown) date) unknown) (unknown) (no (unknown) (unknown) Albumin 4.4 (units (un known) date) (3.5-5.0) g/dL unknown) (unknown) (no (unknown) (unknown) Albumin/Globulin (units (unknown) date) Ratio 1.0 unknown) (1.0-2.8) (unknown) (no (unknown) (unknown) Alkaline (units (unkno wn) date) Phosphatase 52 unknown) (38-126) U/L (unknown) (no (unknown) (unknown) Allergies (units (unkn own) date) unknown) (unknown) (no (unknown) (unknown) Allergy/AdvReac (units (unknown) date) Type Severity unknown) Reaction Status Date / Time (unknown) (no (unknown) (unknown) Anesthesia (units (unk nown) date) unknown) (unknown) (no (unknown) (unknown) Aspirin (Aspirin (units (unknown) date) 81 Mg Chew Tab) unknown) 324 mg PO NOW ONE (unknown) (no (unknown) (unknown) BUN 17 (7-17) (units ( unknown) date) mg/dL unknown) (unknown) (no (unknown) (unknown) BUN/Creatinine (units (unknown) date) Ratio 29.8 H unknown) (6-22) (unknown) (no (unknown) (unknown) Baso # (Auto) (units ( unknown) date) 100 (0-100) /uL unknown) (unknown) (no (unknown) (unknown) Baso % (Auto) (units ( unknown) date) 0.9 (0-2) % unknown) (unknown) (no (unknown) (unknown) Benign essential (units (unknown) date) HTN unknown) (unknown) (no (unknown) (unknown) Blood Pressure (units (unknown) date) 162/79 H 09/28/22 unknown) 11:33 (unknown) (no (unknown) (unknown) Blood Pressure (units (unknown) date) 162/79 H unknown) (unknown) (no (unknown) (unknown) Blood Pressure (units (unknown) date) 186/84 H unknown) (unknown) (no (unknown) (unknown) CK-MB (CK-2) Rel (units (unknown) date) Index TNP unknown) (unknown) (no (unknown) (unknown) CK-MB (CK-2) TNP (units (unknown) date) unknown) (unknown) (no (unknown) (unknown) COVID19 -Nasal (units (unknown) date) RAPID/Pre-Proc unknown) Stat (unknown) (no (unknown) (unknown) Calcium 10.0 (units (u nknown) date) (8.4-10.2) mg/dL unknown) (unknown) (no (unknown) (unknown) Carbon Dioxide (units (unknown) date) 26 (22-32) mmol/L unknown) (unknown) (no (unknown) (unknown) Chief Complaint: (units (unknown) date) Chest Pain unknown) (unknown) (no (unknown) (unknown) Chloride 102 (units (u nknown) date) (98-107) mmol/L unknown) (unknown) (no (unknown) (unknown) Chronic back (units (u nknown) date) pain unknown) (unknown) (no (unknown) (unknown) Complete Blood (units (unknown) date) Count AUTO DIFF unknown) Stat (unknown) (no (unknown) (unknown) Comprehensive (units ( unknown) date) Metabolic Panel unknown) Stat (unknown) (no (unknown) (unknown) Course (units (unkno wn) date) unknown) (unknown) (no (unknown) (unknown) Creatinine 0.57 (units (unknown) date) (0.52-1.04) mg/dL unknown) (unknown) (no (unknown) (unknown) : 1935 (units (unknown) date) Acct:[id number] unknown) (unknown) (no (unknown) (unknown) Date of Service: (units (unknown) date) 09/28/22 unknown) (unknown) (no (unknown) (unknown) Departure (units (unkn own) date) unknown) (unknown) (no (unknown) (unknown) Discharge Plan (units (unknown) date) unknown) (unknown) (no (unknown) (unknown) Discontinued (units (u nknown) date) Medications unknown) (unknown) (no (unknown) (unknown) ED Orders (units (unkn own) date) unknown) (unknown) (no (unknown) (unknown) EKG-12 Lead Stat (units (unknown) date) unknown) (unknown) (no (unknown) (unknown) ER Physician: (units ( unknown) date) Chad Blanco MD unknown) (unknown) (no (unknown) (unknown) Emergency Report (units (unknown) date) unknown) (unknown) (no (unknown) (unknown) Eos # (Auto) 500 (units (unknown) date) H (0-450) /uL unknown) (unknown) (no (unknown) (unknown) Eos % (Auto) 3.5 (units (unknown) date) (2-4) % unknown) (unknown) (no (unknown) (unknown) Estimated GFR > (units (unknown) date) 60 (>60) mL/min unknown) (unknown) (no (unknown) (unknown) Exam (units (unkno wn) date) unknown) (unknown) (no (unknown) (unknown) GERD (units (unkno wn) date) (gastroesophageal unknown) reflux disease) (unknown) (no (unknown) (unknown) General (units (unkno wn) date) unknown) (unknown) (no (unknown) (unknown) Globulin 4.5 H (units (unknown) date) (1.7-4.1) g/dL unknown) (unknown) (no (unknown) (unknown) Glucose 174 H (units ( unknown) date) (80-110) mg/dL unknown) (unknown) (no (unknown) (unknown) HPI - Chest Pain (units (unknown) date) unknown) (unknown) (no (unknown) (unknown) Hct 36.2 (36-46) (units (unknown) date) % unknown) (unknown) (no (unknown) (unknown) Hearing loss (units (u nknown) date) unknown) (unknown) (no (unknown) (unknown) Hgb 12.2 (units (unkno wn) date) (12.0-16.0) g/dL unknown) (unknown) (no (unknown) (unknown) History of total (units (unknown) date) hip replacement unknown) (unknown) (no (unknown) (unknown) History of (units (unk nown) date) urinary unknown) incontinence (unknown) (no (unknown) (unknown) Home Medications (units (unknown) date) unknown) (unknown) (no (unknown) (unknown) INHIBITOR] (units (unk nown) date) unknown) (unknown) (no (unknown) (unknown) INR 1.0 (units (unkno wn) date) (0.9-1.3) unknown) (unknown) (no (unknown) (unknown) Inhibitor ACHES (units (unknown) date) AND unknown) (unknown) (no (unknown) (unknown) Initial Vital (units ( unknown) date) Signs unknown) (unknown) (no (unknown) (unknown) Initial Vital (units ( unknown) date) Signs: unknown) (unknown) (no (unknown) (unknown) [facility] (units (unknown) date) [address] [place] [address] unknown) [place] [address] (unknown) (no (unknown) (unknown) Lab Data (units (unkno wn) date) unknown) (unknown) (no (unknown) (unknown) Lab Results (units (un known) date) unknown) (unknown) (no (unknown) (unknown) Labs: (units (unkno wn) date) unknown) (unknown) (no (unknown) (unknown) Limitations: no (units (unknown) date) limitations unknown) (unknown) (no (unknown) (unknown) Lipase 52 (units (unkn own) date) (23-300) U/L unknown) (unknown) (no (unknown) (unknown) Lipase Stat (units (un known) date) unknown) (unknown) (no (unknown) (unknown) Lymph # (Auto) (units (unknown) date) 2000 ([id number]) unknown) /uL (unknown) (no (unknown) (unknown) Lymph % (Auto) (units (unknown) date) 15.3 L (25-40) % unknown) (unknown) (no (unknown) (unknown) [id number] (units (unk nown) date) unknown) (unknown) (no (unknown) (unknown) MCH 31.2 (26-34) (units (unknown) date) PG unknown) (unknown) (no (unknown) (unknown) MCHC 33.7 (units (unkn own) date) (30-36) % unknown) (unknown) (no (unknown) (unknown) MCV 92.5 (units (unkno wn) date) (80-100) fL unknown) (unknown) (no (unknown) (unknown) MDM - Chest Pain (units (unknown) date) unknown) (unknown) (no (unknown) (unknown) Magnesium 1.7 (units ( unknown) date) (1.6-2.3) mg/dL unknown) (unknown) (no (unknown) (unknown) Magnesium Stat (units (unknown) date) unknown) (unknown) (no (unknown) (unknown) Medical History (units (unknown) date) (Updated 09/26/22 unknown) @ 14:31 by Irma Holder DO) (unknown) (no (unknown) (unknown) Medication (units (unk nown) date) Instructions unknown) Recorded Confirmed (unknown) (no (unknown) (unknown) Medication (units (unk nown) date) Instructions unknown) Recorded (unknown) (no (unknown) (unknown) Mode of arrival: (units (unknown) date) Wheelchair unknown) (unknown) (no (unknown) (unknown) [place] # (Auto) (units ( unknown) date) 1000 H (0-900) unknown) /uL (unknown) (no (unknown) (unknown) [place] % (Auto) (units ( unknown) date) 7.8 (3-14) % unknown) (unknown) (no (unknown) (unknown) Neut # (Auto) (units ( unknown) date) 9400 H unknown) ([id number]) /uL (unknown) (no (unknown) (unknown) Neut % (Auto) (units ( unknown) date) 72.5 (50-75) % unknown) (unknown) (no (unknown) (unknown) Nitroglycerin (units ( unknown) date) (Nitroglycerin unknown) Oint 1 Inch/Gm Oint...G.) 0.5 inch TOP NOW ONE (unknown) (no (unknown) (unknown) No Action (units (unkn own) date) unknown) (unknown) (no (unknown) (unknown) Ordered: (units (unkno wn) date) unknown) (unknown) (no (unknown) (unknown) Orders (units (unkno wn) date) unknown) (unknown) (no (unknown) (unknown) Osteoarthritis (units (unknown) date) unknown) (unknown) (no (unknown) (unknown) Osteoporosis (units (u nknown) date) unknown) (unknown) (no (unknown) (unknown) Oxygen Delivery (units (unknown) date) Method 09/28/22 unknown) 11:33 (unknown) (no (unknown) (unknown) Oxygen Delivery (units (unknown) date) Method Room Air unknown) (unknown) (no (unknown) (unknown) Oxygen Delivery (units (unknown) date) Method unknown) (unknown) (no (unknown) (unknown) PT 11.4 (units (unkno wn) date) (10.1-12.7) unknown) SECONDS (unknown) (no (unknown) (unknown) Partial (units (unkno wn) date) Thromboplastin unknown) Time Stat (unknown) (no (unknown) (unknown) Patient History (units (unknown) date) unknown) (unknown) (no (unknown) (unknown) Patient: (units (unkno wn) date) Rosita Devi unknown) L MR#: (unknown) (no (unknown) (unknown) Plt Count 257 (units ( unknown) date) (150-400) X103/uL unknown) (unknown) (no (unknown) (unknown) Potassium 4.1 (units ( unknown) date) (3.4-5.1) mmol/L unknown) (unknown) (no (unknown) (unknown) Prescriptions: (units (unknown) date) unknown) (unknown) (no (unknown) (unknown) Previous Rx's (units ( unknown) date) unknown) (unknown) (no (unknown) (unknown) Prothrombin Time (units (unknown) date) INR Stat unknown) (unknown) (no (unknown) (unknown) Pulmonary (units (unkn own) date) fibrosis unknown) (unknown) (no (unknown) (unknown) Pulse Oximetry (units (unknown) date) 100 unknown) (unknown) (no (unknown) (unknown) Pulse Oximetry (units (unknown) date) 97 09/28/22 11:33 unknown) (unknown) (no (unknown) (unknown) Pulse Oximetry (units (unknown) date) 97 100 100 unknown) (unknown) (no (unknown) (unknown) Pulse Rate 81 (units ( unknown) date) unknown) (unknown) (no (unknown) (unknown) Pulse Rate 94 H (units (unknown) date) 09/28/22 11:33 unknown) (unknown) (no (unknown) (unknown) Pulse Rate 94 H (units (unknown) date) 89 89 unknown) (unknown) (no (unknown) (unknown) RACING (units (unkno wn) date) unknown) (unknown) (no (unknown) (unknown) RBC 3.91 L (units (unk nown) date) (4.0-5.2) X106/uL unknown) (unknown) (no (unknown) (unknown) RDW 14.7 (units (unkno wn) date) (11.6-14.8) % unknown) (unknown) (no (unknown) (unknown) Referrals: (units (unk nown) date) unknown) (unknown) (no (unknown) (unknown) Related Data (units (u nknown) date) unknown) (unknown) (no (unknown) (unknown) Respiratory Rate (units (unknown) date) 18 09/28/22 11:33 unknown) (unknown) (no (unknown) (unknown) Respiratory Rate (units (unknown) date) 18 15 29 H unknown) (unknown) (no (unknown) (unknown) Respiratory Rate (units (unknown) date) 33 H unknown) (unknown) (no (unknown) (unknown) Rx Instructions: (units (unknown) date) unknown) (unknown) (no (unknown) (unknown) STOMACH (units (unkno wn) date) unknown) (unknown) (no (unknown) (unknown) SVT (units (unkno wn) date) (supraventricular unknown) tachycardia) (unknown) (no (unknown) (unknown) SaO2 85%,while (units (unknown) date) walking SaO2 95% unknown) with 2L for pulmonary fibrosis (unknown) (no (unknown) (unknown) SaO2 w/ 2L O2 (units ( unknown) date) 95% unknown) (unknown) (no (unknown) (unknown) Irma Holder DO (units (unknown) date) [Primary Care unknown) Provider] (unknown) (no (unknown) (unknown) See Rx (units (unkno wn) date) Instructions unknown) [facility] Qty: 1 0RF (unknown) (no (unknown) (unknown) Shoulder pain (units ( unknown) date) unknown) (unknown) (no (unknown) (unknown) Signed By: (units (unk nown) date) unknown) (unknown) (no (unknown) (unknown) Sleep apnea (units (un known) date) unknown) (unknown) (no (unknown) (unknown) Smoking Status: (units (unknown) date) Former smoker unknown) (unknown) (no (unknown) (unknown) Social History (units (unknown) date) unknown) (unknown) (no (unknown) (unknown) Sodium 136 L (units (u nknown) date) (137-145) mmol/L unknown) (unknown) (no (unknown) (unknown) Source: patient (units (unknown) date) unknown) (unknown) (no (unknown) (unknown) Stated (units (unkno wn) date) Complaint: heart unknown) problems sent by Dr. Holder (unknown) (no (unknown) (unknown) [id number] (units (unknown) date) Reductase AdvReac unknown) Intermediate MUSCLE Verified 09/28/22 11:32 (unknown) (no (unknown) (unknown) Stop: 09/28/22 (units (unknown) date) 12:31 unknown) (unknown) (no (unknown) (unknown) Substance Use (units ( unknown) date) Type: does not unknown) use (unknown) (no (unknown) (unknown) Surgical History (units (unknown) date) (Updated 06/14/22 unknown) @ 22:24 by Sherita Carreon) (unknown) (no (unknown) (unknown) Temperature 96.7 (units (unknown) date) F L 09/28/22 unknown) 11:33 (unknown) (no (unknown) (unknown) Temperature 96.7 (units (unknown) date) F L unknown) (unknown) (no (unknown) (unknown) Temperature (units (un known) date) unknown) (unknown) (no (unknown) (unknown) Time Seen by (units (u nknown) date) Provider: unknown) 09/28/22 11:43 (unknown) (no (unknown) (unknown) Total Bilirubin (units (unknown) date) 0.5 (0.2-1.3) unknown) mg/dL (unknown) (no (unknown) (unknown) Total Creatine (units (unknown) date) Kinase 48 unknown) (30-135) U/L (unknown) (no (unknown) (unknown) Total Protein (units ( unknown) date) 8.9 H (6.3-8.2) unknown) g/dL (unknown) (no (unknown) (unknown) Troponin + CK (units ( unknown) date) Cardiac Panel unknown) Stat (unknown) (no (unknown) (unknown) 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, 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 insulin use (unknown) (no (unknown) (unknown) Vital Signs - 8 (units (unknown) date) hr unknown) (unknown) (no (unknown) (unknown) Vital Signs (units (un known) date) unknown) (unknown) (no (unknown) (unknown) Vital signs: (units (u nknown) date) unknown) (unknown) (no (unknown) (unknown) WBC 12.9 H (units (unk nown) date) (4.5-11.0) unknown) X103/uL (unknown) (no (unknown) (unknown) XR chest 1V Stat (units (unknown) date) unknown) (unknown) (no (unknown) (unknown) [Embedded Image (units (unknown) date) Not Available] unknown) (unknown) (no (unknown) (unknown) [From FOSAMAX] (units (unknown) date) STOMACH unknown) (unknown) (no (unknown) (unknown) [[id number] (units (unknown) date) REDUCTASE WEIGHT unknown) LOSS (unknown) (no (unknown) (unknown) acetaminophen (units ( unknown) date) 500 mg tablet 500 unknown) mg PO Q6HP PRN pain ##0 05/24/17 09/26/22 (unknown) (no (unknown) (unknown) acetaminophen (units ( unknown) date) [Tylenol Extra unknown) Strength] 500 MG tablet (unknown) (no (unknown) (unknown) alcohol intake (units (unknown) date) frequency: 0-2 unknown) drinks per day (unknown) (no (unknown) (unknown) alendronate 70 (units (unknown) date) mg tablet unknown) (Fosamax) 70 mg PO QWEEK 09/26/22 09/26/22 (unknown) (no (unknown) (unknown) alendronate (units (un known) date) [Fosamax] 70 mg unknown) tablet (unknown) (no (unknown) (unknown) alendronate (units (un known) date) sodium AdvReac unknown) Intermediate UPSET Verified 09/28/22 11:32 (unknown) (no (unknown) (unknown) dx: Pulmonary (units ( unknown) date) Fibrosis unknown) (unknown) (no (unknown) (unknown) ezetimibe [From (units (unknown) date) ZETIA] AdvReac unknown) Mild COUGHING Verified 09/28/22 11:32 (unknown) (no (unknown) (unknown) glimepiride 1 mg (units (unknown) date) tablet (Amaryl) 1 unknown) mg PO DAILY #0 tabs 09/26/22 09/26/22 (unknown) (no (unknown) (unknown) glimepiride (units (un known) date) [Amaryl] 1 mg unknown) tablet (unknown) (no (unknown) (unknown) household (units (unkn own) date) members: spouse unknown) (unknown) (no (unknown) (unknown) hydrocodone 5 (units ( unknown) date) mg-acetaminophen unknown) 325 0.5 - 1 tab PO BEDTIME PRN pain 08/24/22 (unknown) (no (unknown) (unknown) hydrocodone-acet (units (unknown) date) aminophen 5-325 unknown) mg tablet (unknown) (no (unknown) (unknown) losartan 100 mg (units (unknown) date) tablet 100 mg PO unknown) DAILY blood pressure #90 08/24/22 (unknown) (no (unknown) (unknown) losartan 100 mg (units (unknown) date) tablet unknown) (unknown) (no (unknown) (unknown) mg tablet #30 (units ( unknown) date) tabs unknown) (unknown) (no (unknown) (unknown) omeprazole [From (units (unknown) date) PRILOSEC] AdvReac unknown) Intermediate UPSET Verified 09/28/22 11:32 (unknown) (no (unknown) (unknown) oxygen #1 ea (units (u nknown) date) 06/17/22 unknown) (unknown) (no (unknown) (unknown) oxygen (units (unkno wn) date) concentrator #1 unknown) ea 08/18/22 (unknown) (no (unknown) (unknown) oxygen (units (unkno wn) date) concentrator. 2L unknown) by NC with activity and while sleeping (unknown) (no (unknown) (unknown) pantoprazole 40 (units (unknown) date) mg tablet,delayed unknown) 40 mg PO DAILY Hiatal hernia--gerd 09/26/22 (unknown) (no (unknown) (unknown) pantoprazole 40 (units (unknown) date) mg tablet,delayed unknown) release (DR/EC) (unknown) (no (unknown) (unknown) plant stanol (units (u nknown) date) tim 450 mg unknown) tablet 1 tab PO QAM 05/17/18 09/26/22 (unknown) (no (unknown) (unknown) plant stanol (units (u nknown) date) tim [Cholest unknown) Off] 450 mg Tablet (unknown) (no (unknown) (unknown) release (units (unkno wn) date) unknown) (unknown) (no (unknown) (unknown) room air Sa02 (units ( unknown) date) 85% while walking unknown) (unknown) (no (unknown) (unknown) room air SaO2 (units ( unknown) date) 95% at rest unknown) (unknown) (no (unknown) (unknown) tabs (units (unkno wn) date) unknown) (unknown) (no (unknown) (unknown) tramadol (units (unkno wn) date) [TRAMADOL] unknown) Allergy Intermediate HEART Verified 09/28/22 11:32 Result panel 281 (unknown) (no date) (unknown) (unknown) Negative (units (unkn own) unknown) (unknown) (no date) (unknown) (unknown) Negative (units (unkn own) unknown) Result panel 282 (unknown) (no date) (unknown) (unknown) 51 u/l (unkn own) (unknown) (no date) (unknown) (unknown) Test not % (unkn own) performed (unknown) (no date) (unknown) (unknown) Test not % (unkn own) performed (unknown) (no date) (unknown) (unknown) Test not ng/ml (unkn own) performed (unknown) (no date) (unknown) (unknown) Test not ng/ml (unkn own) performed Result panel 283 (unknown) (no date) (unknown) (unknown) < 0.012 ng/ml (unkn own) (unknown) (no date) (unknown) (unknown) < 0.012 ng/ml (unkn own) (unknown) (no date) (unknown) (unknown) 51 u/l (unkn own) (unknown) (no date) (unknown) (unknown) Test not % (unkn own) performed (unknown) (no date) (unknown) (unknown) Test not % (unkn own) performed (unknown) (no date) (unknown) (unknown) Test not ng/ml (unkn own) performed (unknown) (no date) (unknown) (unknown) Test not ng/ml (unkn own) performed Result panel 284 (unknown) (no (unknown) (unknown) (no value) (units (unk nown) date) unknown) (unknown) (no (unknown) (unknown) 09/28/22 (units (unkno wn) date) unknown) (unknown) (no (unknown) (unknown) 03/02/2022. (units (un known) date) Pulmonary fibrosis unknown) or interstitial pneumonitis considered. (unknown) (no (unknown) (unknown) 1. Peripheral (units ( unknown) date) chronic unknown) interstitial changes have a reticular pattern are stable (unknown) (no (unknown) (unknown) [address] (units (unknown) date) unknown) (unknown) (no (unknown) (unknown) 2. Large hiatal (units (unknown) date) hernia, stable unknown) (unknown) (no (unknown) (unknown) Abdomen: (units (unkno wn) date) Visualized upper unknown) abdominal solid organs appear normal. Upper (unknown) (no (unknown) (unknown) Accession Number: (units (unknown) date) [id number] unknown) (unknown) (no (unknown) (unknown) After the (units (unkn own) date) administration of unknown) intravenous contrast, 5 mm thick sections acquired (unknown) (no (unknown) (unknown) Age/Sex: 86 / F (units (unknown) date) Date of Service: unknown) (unknown) (no (unknown) (unknown) [place], [place] (units ( unknown) date) [address] unknown) (unknown) (no (unknown) (unknown) Approved by: Fernando (units (unknown) date) Jagdeep Rivas on unknown) 09/28/2022 at 15:07 (unknown) (no (unknown) (unknown) 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 No vertebral body (unknown) (no (unknown) (unknown) COMPARISON: (units (un known) date) [facility], unknown) CT, CT CHEST WO CON, 03/04/2022, 12:47. (unknown) (no (unknown) (unknown) CT Scan Report (units (unknown) date) unknown) (unknown) (no (unknown) (unknown) Central and (units (un known) date) peripheral airways unknown) are patent and normal in caliber. Peripheral (unknown) (no (unknown) (unknown) : 1935 (units (unknown) date) Acct:[id number] unknown) (unknown) (no (unknown) (unknown) FINDINGS: (units (unkn own) date) unknown) (unknown) (no (unknown) (unknown) IMPRESSION: (units (un known) date) unknown) (unknown) (no (unknown) (unknown) INDICATIONS: (units (u nknown) date) Chest pain unknown) (unknown) (no (unknown) (unknown) Image quality: (units (unknown) date) Excellent. unknown) (unknown) (no (unknown) (unknown) [facility] (units (unknown) date) unknown) (unknown) (no (unknown) (unknown) Loc: ED (units (unkno wn) date) unknown) (unknown) (no (unknown) (unknown) Lungs and pleura: (units (unknown) date) No acute air space unknown) opacities. No pleural effusions or (unknown) (no (unknown) (unknown) [id number] (units (unk nown) date) unknown) (unknown) (no (unknown) (unknown) Mediastinum: (units (u nknown) date) Heart size is unknown) normal. No pericardial effusion. No mediastinal (unknown) (no (unknown) (unknown) Ordering (units (unkno wn) date) Provider: unknown) Chad Blanco MD (unknown) (no (unknown) (unknown) PROCEDURE: CT (units ( unknown) date) CHEST W CON unknown) (unknown) (no (unknown) (unknown) Patient: (units (unkno wn) date) Rosita Devi unknown) MR#: (unknown) (no (unknown) (unknown) Procedure: CT (units ( unknown) date) chest w con unknown) (unknown) (no (unknown) (unknown) Signed (units (unkno wn) date) unknown) (unknown) (no (unknown) (unknown) TECHNIQUE: (units (unk nown) date) unknown) (unknown) (no (unknown) (unknown) Thyroid gland (units ( unknown) date) unknown) (unknown) (no (unknown) (unknown) abdominal bowel (units (unknown) date) unknown) (unknown) (no (unknown) (unknown) adenopathy by (units ( unknown) date) size criteria. unknown) Thoracic aorta and central pulmonary arteries are (unknown) (no (unknown) (unknown) calcification. (units (unknown) date) unknown) (unknown) (no (unknown) (unknown) compression (units (un known) date) unknown) (unknown) (no (unknown) (unknown) coronal and (units (un known) date) sagittal reformats unknown) and 7 mm axial MIP were acquired. For radiation (unknown) (no (unknown) (unknown) dose (units (unkno wn) date) unknown) (unknown) (no (unknown) (unknown) fractures. No (units ( unknown) date) axillary or unknown) supraclavicular adenopathy by size criteria. (unknown) (no (unknown) (unknown) from the (units (unkno wn) date) unknown) (unknown) (no (unknown) (unknown) from (units (unkno wn) date) unknown) (unknown) (no (unknown) (unknown) interstitial (units (u nknown) date) unknown) (unknown) (no (unknown) (unknown) kV according to (units (unknown) date) patient size. unknown) (unknown) (no (unknown) (unknown) loops are normal (units (unknown) date) in caliber. unknown) Incidental cholelithiasis (unknown) (no (unknown) (unknown) mA and/or (units (unkn own) date) unknown) (unknown) (no (unknown) (unknown) normal in (units (unkn own) date) unknown) (unknown) (no (unknown) (unknown) or hilar (units (unkno wn) date) unknown) (unknown) (no (unknown) (unknown) pneumothorax. (units ( unknown) date) unknown) (unknown) (no (unknown) (unknown) prior. Did dense (units (unknown) date) mitral valve unknown) annular and coronary artery vascular (unknown) (no (unknown) (unknown) pulmonary apices (units (unknown) date) to the posterior unknown) costophrenic angles. 1 mm axial lung, 5 mm (unknown) (no (unknown) (unknown) reduction, the (units (unknown) date) following was unknown) used: automated exposure control, adjustment of (unknown) (no (unknown) (unknown) remain unchanged (units (unknown) date) from the prior unknown) (unknown) (no (unknown) (unknown) reticulonodular (units (unknown) date) thickening may unknown) reflect fibrosis, stable (unknown) (no (unknown) (unknown) size. Esophagus (units (unknown) date) is normal in unknown) caliber. Large hiatal hernia remains unchanged (unknown) (no (unknown) (unknown) spine (units (unkno wn) date) unknown) (unknown) (no (unknown) (unknown) thick (units (unkno wn) date) unknown) (unknown) (no (unknown) (unknown) unremarkable . (units (unknown) date) Several unknown) wedge-shaped compression fractures in the midthoracic Result panel 285 (unknown) (no (unknown) (unknown) (no value) (units (unk nown) date) unknown) (unknown) (no (unknown) (unknown) (Cholest Off) (units ( unknown) date) unknown) (unknown) (no (unknown) (unknown) (DME) oxygen (units (u nknown) date) concentrator unknown) (unknown) (no (unknown) (unknown) (DME) oxygen (units (u nknown) date) unknown) (unknown) (no (unknown) (unknown) (Tylenol Extra (units (unknown) date) Strength) unknown) (unknown) (no (unknown) (unknown) 0.5 - 1 tab PO (units (unknown) date) BEDTIME PRN unknown) (Reason: pain) Qty: 30 0RF (unknown) (no (unknown) (unknown) 09/26/22 (units (unkno wn) date) unknown) (unknown) (no (unknown) (unknown) 09/28/22 09/28/22 (units (unknown) date) 09/28/22 unknown) Range/Units (unknown) (no (unknown) (unknown) 09/28/22 09/28/22 (units (unknown) date) Range/Units unknown) (unknown) (no (unknown) (unknown) 09/28/22 11:50 (units (unknown) date) unknown) (unknown) (no (unknown) (unknown) 09/28/22 11:56 (units (unknown) date) unknown) (unknown) (no (unknown) (unknown) 09/28/22 12:55 (units (unknown) date) unknown) (unknown) (no (unknown) (unknown) 09/28/22 14:20 (units (unknown) date) unknown) (unknown) (no (unknown) (unknown) 09/28/22 15:13 (units (unknown) date) unknown) (unknown) (no (unknown) (unknown) 09/28/22 (units (unkno wn) date) unknown) (unknown) (no (unknown) (unknown) 1 mg PO DAILY (units ( unknown) date) Qty: 0 unknown) (unknown) (no (unknown) (unknown) 1 tab PO QAM (units (u nknown) date) unknown) (unknown) (no (unknown) (unknown) 100 mg PO DAILY (units (unknown) date) Qty: 90 3RF unknown) (unknown) (no (unknown) (unknown) 11:33 09/28/22 (units (unknown) date) unknown) (unknown) (no (unknown) (unknown) 11:42 09/28/22 (units (unknown) date) unknown) (unknown) (no (unknown) (unknown) 11:50 11:50 11:50 (units (unknown) date) unknown) (unknown) (no (unknown) (unknown) 12:00 (units (unkno wn) date) unknown) (unknown) (no (unknown) (unknown) 12:01 09/28/22 (units (unknown) date) unknown) (unknown) (no (unknown) (unknown) 12:30 09/28/22 (units (unknown) date) unknown) (unknown) (no (unknown) (unknown) 12:47 (units (unkno wn) date) unknown) (unknown) (no (unknown) (unknown) 12:55 14:20 (units (un known) date) unknown) (unknown) (no (unknown) (unknown) 12:58 09/28/22 (units (unknown) date) unknown) (unknown) (no (unknown) (unknown) 12:58 (units (unkno wn) date) unknown) (unknown) (no (unknown) (unknown) 13:00 09/28/22 (units (unknown) date) unknown) (unknown) (no (unknown) (unknown) 13:00 (units (unkno wn) date) unknown) (unknown) (no (unknown) (unknown) 13:10 09/28/22 (units (unknown) date) unknown) (unknown) (no (unknown) (unknown) 13:20 09/28/22 (units (unknown) date) unknown) (unknown) (no (unknown) (unknown) 13:20 (units (unkno wn) date) unknown) (unknown) (no (unknown) (unknown) 13:30 09/28/22 (units (unknown) date) unknown) (unknown) (no (unknown) (unknown) 13:31 (units (unkno wn) date) unknown) (unknown) (no (unknown) (unknown) 2L by NC with (units ( unknown) date) activity and while unknown) sleeping room air SaO2 95% at rest,room air (unknown) (no (unknown) (unknown) 40 mg PO DAILY (units (unknown) date) unknown) (unknown) (no (unknown) (unknown) 500 mg PO Q6HP (units (unknown) date) PRN (Reason: pain) unknown) Qty: 0 (unknown) (no (unknown) (unknown) 70 mg PO QWEEK (units (unknown) date) unknown) (unknown) (no (unknown) (unknown) ALT (<35) IU/L (units (unknown) date) unknown) (unknown) (no (unknown) (unknown) ALT 21 (<35) IU/L (units (unknown) date) unknown) (unknown) (no (unknown) (unknown) APTT (26-36) (units (u nknown) date) SECONDS unknown) (unknown) (no (unknown) (unknown) APTT 29 (26-36) (units (unknown) date) SECONDS unknown) (unknown) (no (unknown) (unknown) AST (14-36) IU/L (units (unknown) date) unknown) (unknown) (no (unknown) (unknown) AST 25 (14-36) (units (unknown) date) IU/L unknown) (unknown) (no (unknown) (unknown) Age/Sex: 86 / F (units (unknown) date) unknown) (unknown) (no (unknown) (unknown) Albumin (3.5-5.0) (units (unknown) date) g/dL unknown) (unknown) (no (unknown) (unknown) Albumin 4.4 (units (un known) date) (3.5-5.0) g/dL unknown) (unknown) (no (unknown) (unknown) Albumin/Globulin (units (unknown) date) Ratio (1.0-2.8) unknown) (unknown) (no (unknown) (unknown) Albumin/Globulin (units (unknown) date) Ratio 1.0 unknown) (1.0-2.8) (unknown) (no (unknown) (unknown) Alkaline (units (unkno wn) date) Phosphatase unknown) (38-126) U/L (unknown) (no (unknown) (unknown) Alkaline (units (unkno wn) date) Phosphatase 52 unknown) (38-126) U/L (unknown) (no (unknown) (unknown) Allergies (units (unkn own) date) unknown) (unknown) (no (unknown) (unknown) Allergy/AdvReac (units (unknown) date) Type Severity unknown) Reaction Status Date / Time (unknown) (no (unknown) (unknown) Anesthesia (units (unk nown) date) unknown) (unknown) (no (unknown) (unknown) Aspirin (Aspirin (units (unknown) date) 81 Mg Chew Tab) unknown) 324 mg PO NOW ONE (unknown) (no (unknown) (unknown) BUN (7-17) mg/dL (units (unknown) date) unknown) (unknown) (no (unknown) (unknown) BUN 17 (7-17) (units ( unknown) date) mg/dL unknown) (unknown) (no (unknown) (unknown) BUN/Creatinine (units (unknown) date) Ratio (6-22) unknown) (unknown) (no (unknown) (unknown) BUN/Creatinine (units (unknown) date) Ratio 29.8 H unknown) (6-22) (unknown) (no (unknown) (unknown) Baso # (Auto) (units ( unknown) date) (0-100) /uL unknown) (unknown) (no (unknown) (unknown) Baso # (Auto) 100 (units (unknown) date) (0-100) /uL unknown) (unknown) (no (unknown) (unknown) Baso % (Auto) (units ( unknown) date) (0-2) % unknown) (unknown) (no (unknown) (unknown) Baso % (Auto) 0.9 (units (unknown) date) (0-2) % unknown) (unknown) (no (unknown) (unknown) Benign essential (units (unknown) date) HTN unknown) (unknown) (no (unknown) (unknown) Blood Pressure (units (unknown) date) 153/100 H 164/89 H unknown) (unknown) (no (unknown) (unknown) Blood Pressure (units (unknown) date) 153/74 H unknown) (unknown) (no (unknown) (unknown) Blood Pressure (units (unknown) date) 162/79 H 09/28/22 unknown) 11:33 (unknown) (no (unknown) (unknown) Blood Pressure (units (unknown) date) 162/79 H unknown) (unknown) (no (unknown) (unknown) Blood Pressure (units (unknown) date) 165/82 H 164/84 H unknown) (unknown) (no (unknown) (unknown) Blood Pressure (units (unknown) date) 169/91 H unknown) (unknown) (no (unknown) (unknown) Blood Pressure (units (unknown) date) 186/84 H 153/100 H unknown) (unknown) (no (unknown) (unknown) Blood Pressure (units (unknown) date) unknown) (unknown) (no (unknown) (unknown) CK-MB (CK-2) Rel (units (unknown) date) Index TNP unknown) (unknown) (no (unknown) (unknown) CK-MB (CK-2) TNP (units (unknown) date) unknown) (unknown) (no (unknown) (unknown) COVID19 -Nasal (units (unknown) date) RAPID/Pre-Proc unknown) Stat (unknown) (no (unknown) (unknown) CT angio chest PE (units (unknown) date) protocol Stat unknown) (unknown) (no (unknown) (unknown) Calcium (units (unkno wn) date) (8.4-10.2) mg/dL unknown) (unknown) (no (unknown) (unknown) Calcium 10.0 (units (u nknown) date) (8.4-10.2) mg/dL unknown) (unknown) (no (unknown) (unknown) Carbon Dioxide (units (unknown) date) (22-32) mmol/L unknown) (unknown) (no (unknown) (unknown) Carbon Dioxide 26 (units (unknown) date) (22-32) mmol/L unknown) (unknown) (no (unknown) (unknown) Chief Complaint: (units (unknown) date) Chest Pain unknown) (unknown) (no (unknown) (unknown) Chloride (98-107) (units (unknown) date) mmol/L unknown) (unknown) (no (unknown) (unknown) Chloride 102 (units (u nknown) date) (98-107) mmol/L unknown) (unknown) (no (unknown) (unknown) Chronic back pain (units (unknown) date) unknown) (unknown) (no (unknown) (unknown) Complete Blood (units (unknown) date) Count AUTO DIFF unknown) Stat (unknown) (no (unknown) (unknown) Comprehensive (units ( unknown) date) Metabolic Panel unknown) Stat (unknown) (no (unknown) (unknown) Course (units (unkno wn) date) unknown) (unknown) (no (unknown) (unknown) Creatinine (units (unk nown) date) (0.52-1.04) mg/dL unknown) (unknown) (no (unknown) (unknown) Creatinine 0.57 (units (unknown) date) (0.52-1.04) mg/dL unknown) (unknown) (no (unknown) (unknown) : 1935 (units (unknown) date) Acct:[id number] unknown) (unknown) (no (unknown) (unknown) Date of Service: (units (unknown) date) 09/28/22 unknown) (unknown) (no (unknown) (unknown) Departure (units (unkn own) date) unknown) (unknown) (no (unknown) (unknown) Discharge Plan (units (unknown) date) unknown) (unknown) (no (unknown) (unknown) Discontinued (units (u nknown) date) Medications unknown) (unknown) (no (unknown) (unknown) Documented By: RB (units (unknown) date) unknown) (unknown) (no (unknown) (unknown) ED Orders (units (unkn own) date) unknown) (unknown) (no (unknown) (unknown) EKG-12 Lead Stat (units (unknown) date) unknown) (unknown) (no (unknown) (unknown) ER Physician: (units ( unknown) date) Chad Blanco MD unknown) (unknown) (no (unknown) (unknown) Emergency Report (units (unknown) date) unknown) (unknown) (no (unknown) (unknown) Eos # (Auto) (units (u nknown) date) (0-450) /uL unknown) (unknown) (no (unknown) (unknown) Eos # (Auto) 500 (units (unknown) date) H (0-450) /uL unknown) (unknown) (no (unknown) (unknown) Eos % (Auto) (units (u nknown) date) (2-4) % unknown) (unknown) (no (unknown) (unknown) Eos % (Auto) 3.5 (units (unknown) date) (2-4) % unknown) (unknown) (no (unknown) (unknown) Estimated GFR > (units (unknown) date) 60 (>60) mL/min unknown) (unknown) (no (unknown) (unknown) Estimated GFR (units ( unknown) date) (>60) mL/min unknown) (unknown) (no (unknown) (unknown) Exam (units (unkno wn) date) unknown) (unknown) (no (unknown) (unknown) GERD (units (unkno wn) date) (gastroesophageal unknown) reflux disease) (unknown) (no (unknown) (unknown) General (units (unkno wn) date) unknown) (unknown) (no (unknown) (unknown) Globulin (units (unkno wn) date) (1.7-4.1) g/dL unknown) (unknown) (no (unknown) (unknown) Globulin 4.5 H (units (unknown) date) (1.7-4.1) g/dL unknown) (unknown) (no (unknown) (unknown) Glucose (80-110) (units (unknown) date) mg/dL unknown) (unknown) (no (unknown) (unknown) Glucose 174 H (units ( unknown) date) (80-110) mg/dL unknown) (unknown) (no (unknown) (unknown) HPI - Chest Pain (units (unknown) date) unknown) (unknown) (no (unknown) (unknown) HPI narrative: (units (unknown) date) unknown) (unknown) (no (unknown) (unknown) Hct (36-46) % (units ( unknown) date) unknown) (unknown) (no (unknown) (unknown) Hct 36.2 (36-46) (units (unknown) date) % unknown) (unknown) (no (unknown) (unknown) Hearing loss (units (u nknown) date) unknown) (unknown) (no (unknown) (unknown) Hgb (12.0-16.0) (units (unknown) date) g/dL unknown) (unknown) (no (unknown) (unknown) Hgb 12.2 (units (unkno wn) date) (12.0-16.0) g/dL unknown) (unknown) (no (unknown) (unknown) History of (units (unk nown) date) Present Illness unknown) (unknown) (no (unknown) (unknown) History of total (units (unknown) date) hip replacement unknown) (unknown) (no (unknown) (unknown) History of (units (unk nown) date) urinary unknown) incontinence (unknown) (no (unknown) (unknown) Home Medications (units (unknown) date) unknown) (unknown) (no (unknown) (unknown) INHIBITOR] (units (unk nown) date) unknown) (unknown) (no (unknown) (unknown) INR (0.9-1.3) (units ( unknown) date) unknown) (unknown) (no (unknown) (unknown) INR 1.0 (0.9-1.3) (units (unknown) date) unknown) (unknown) (no (unknown) (unknown) Inhibitor ACHES (units (unknown) date) AND unknown) (unknown) (no (unknown) (unknown) Initial Vital (units ( unknown) date) Signs unknown) (unknown) (no (unknown) (unknown) Initial Vital (units ( unknown) date) Signs: unknown) (unknown) (no (unknown) (unknown) [facility] (units (unknown) date) [address] [place] [address] unknown) [place] [address] (unknown) (no (unknown) (unknown) Lab Data (units (unkno wn) date) unknown) (unknown) (no (unknown) (unknown) Lab Results (units (un known) date) unknown) (unknown) (no (unknown) (unknown) Labs: (units (unkno wn) date) unknown) (unknown) (no (unknown) (unknown) Last Admin: (units (un known) date) 09/28/22 12:46 unknown) Dose: 324 mg (unknown) (no (unknown) (unknown) Last Admin: (units (un known) date) 09/28/22 12:47 unknown) Dose: 0.5 inch (unknown) (no (unknown) (unknown) Limitations: no (units (unknown) date) limitations unknown) (unknown) (no (unknown) (unknown) Lipase (23-300) (units (unknown) date) U/L unknown) (unknown) (no (unknown) (unknown) Lipase 52 (units (unkn own) date) (23-300) U/L unknown) (unknown) (no (unknown) (unknown) Lipase Stat (units (un known) date) unknown) (unknown) (no (unknown) (unknown) Lymph # (Auto) (units (unknown) date) ([phone]) /uL unknown) (unknown) (no (unknown) (unknown) Lymph # (Auto) (units (unknown) date) 2000 ([phone]) unknown) /uL (unknown) (no (unknown) (unknown) Lymph % (Auto) (units (unknown) date) (25-40) % unknown) (unknown) (no (unknown) (unknown) Lymph % (Auto) (units (unknown) date) 15.3 L (25-40) % unknown) (unknown) (no (unknown) (unknown) [id number] (units (unk nown) date) unknown) (unknown) (no (unknown) (unknown) MCH (26-34) PG (units (unknown) date) unknown) (unknown) (no (unknown) (unknown) MCH 31.2 (26-34) (units (unknown) date) PG unknown) (unknown) (no (unknown) (unknown) MCHC (30-36) % (units (unknown) date) unknown) (unknown) (no (unknown) (unknown) MCHC 33.7 (30-36) (units (unknown) date) % unknown) (unknown) (no (unknown) (unknown) MCV (80-100) fL (units (unknown) date) unknown) (unknown) (no (unknown) (unknown) MCV 92.5 (80-100) (units (unknown) date) fL unknown) (unknown) (no (unknown) (unknown) MDM - Chest Pain (units (unknown) date) unknown) (unknown) (no (unknown) (unknown) Magnesium (units (unkn own) date) (1.6-2.3) mg/dL unknown) (unknown) (no (unknown) (unknown) Magnesium 1.7 (units ( unknown) date) (1.6-2.3) mg/dL unknown) (unknown) (no (unknown) (unknown) Magnesium Stat (units (unknown) date) unknown) (unknown) (no (unknown) (unknown) Medical History (units (unknown) date) (Updated 09/26/22 unknown) @ 14:31 by Irma Holder DO) (unknown) (no (unknown) (unknown) Medication (units (unk nown) date) Instructions unknown) Recorded Confirmed (unknown) (no (unknown) (unknown) Medication (units (unk nown) date) Instructions unknown) Recorded (unknown) (no (unknown) (unknown) Mode of arrival: (units (unknown) date) Wheelchair unknown) (unknown) (no (unknown) (unknown) [place] # (Auto) (units ( unknown) date) (0-900) /uL unknown) (unknown) (no (unknown) (unknown) [place] # (Auto) (units ( unknown) date) 1000 H (0-900) /uL unknown) (unknown) (no (unknown) (unknown) [place] % (Auto) (units ( unknown) date) (3-14) % unknown) (unknown) (no (unknown) (unknown) [place] % (Auto) 7.8 (units (unknown) date) (3-14) % unknown) (unknown) (no (unknown) (unknown) Neut # (Auto) (units ( unknown) date) (2437-6281) /uL unknown) (unknown) (no (unknown) (unknown) Neut # (Auto) (units ( unknown) date) 9400 H (0618-4005) unknown) /uL (unknown) (no (unknown) (unknown) Neut % (Auto) (units ( unknown) date) (50-75) % unknown) (unknown) (no (unknown) (unknown) Neut % (Auto) (units ( unknown) date) 72.5 (50-75) % unknown) (unknown) (no (unknown) (unknown) Nitroglycerin (units ( unknown) date) (Nitroglycerin unknown) Oint 1 Inch/Gm Oint...G.) 0.5 inch TOP NOW ONE (unknown) (no (unknown) (unknown) No Action (units (unkn own) date) unknown) (unknown) (no (unknown) (unknown) Ordered: (units (unkno wn) date) unknown) (unknown) (no (unknown) (unknown) Orders (units (unkno wn) date) unknown) (unknown) (no (unknown) (unknown) Osteoarthritis (units (unknown) date) unknown) (unknown) (no (unknown) (unknown) Osteoporosis (units (u nknown) date) unknown) (unknown) (no (unknown) (unknown) Oxygen Delivery (units (unknown) date) Method 09/28/22 unknown) 11:33 (unknown) (no (unknown) (unknown) Oxygen Delivery (units (unknown) date) Method Room Air unknown) (unknown) (no (unknown) (unknown) Oxygen Delivery (units (unknown) date) Method unknown) (unknown) (no (unknown) (unknown) PT (10.1-12.7) (units (unknown) date) SECONDS unknown) (unknown) (no (unknown) (unknown) PT 11.4 (units (unkno wn) date) (10.1-12.7) unknown) SECONDS (unknown) (no (unknown) (unknown) Partial (units (unkno wn) date) Thromboplastin unknown) Time Stat (unknown) (no (unknown) (unknown) Patient History (units (unknown) date) unknown) (unknown) (no (unknown) (unknown) Patient here for (units (unknown) date) nonreproducible unknown) chest pain (unknown) (no (unknown) (unknown) Patient: (units (unkno wn) date) Rosita Devi L unknown) MR#: (unknown) (no (unknown) (unknown) Plt Count (units (unkn own) date) (150-400) X103/uL unknown) (unknown) (no (unknown) (unknown) Plt Count 257 (units ( unknown) date) (150-400) X103/uL unknown) (unknown) (no (unknown) (unknown) Potassium (units (unkn own) date) (3.4-5.1) mmol/L unknown) (unknown) (no (unknown) (unknown) Potassium 4.1 (units ( unknown) date) (3.4-5.1) mmol/L unknown) (unknown) (no (unknown) (unknown) Prescriptions: (units (unknown) date) unknown) (unknown) (no (unknown) (unknown) Previous Rx's (units ( unknown) date) unknown) (unknown) (no (unknown) (unknown) Prothrombin Time (units (unknown) date) INR Stat unknown) (unknown) (no (unknown) (unknown) Pulmonary (units (unkn own) date) fibrosis unknown) (unknown) (no (unknown) (unknown) Pulse Oximetry (units (unknown) date) 100 100 unknown) (unknown) (no (unknown) (unknown) Pulse Oximetry (units (unknown) date) 100 unknown) (unknown) (no (unknown) (unknown) Pulse Oximetry 97 (units (unknown) date) 09/28/22 11:33 unknown) (unknown) (no (unknown) (unknown) Pulse Oximetry 97 (units (unknown) date) 100 100 unknown) (unknown) (no (unknown) (unknown) Pulse Rate 81 87 (units (unknown) date) unknown) (unknown) (no (unknown) (unknown) Pulse Rate 81 (units ( unknown) date) unknown) (unknown) (no (unknown) (unknown) Pulse Rate 82 (units ( unknown) date) unknown) (unknown) (no (unknown) (unknown) Pulse Rate 86 84 (units (unknown) date) unknown) (unknown) (no (unknown) (unknown) Pulse Rate 88 85 (units (unknown) date) unknown) (unknown) (no (unknown) (unknown) Pulse Rate 94 H (units (unknown) date) 09/28/22 11:33 unknown) (unknown) (no (unknown) (unknown) Pulse Rate 94 H (units (unknown) date) 89 89 unknown) (unknown) (no (unknown) (unknown) RACING (units (unkno wn) date) unknown) (unknown) (no (unknown) (unknown) RBC (4.0-5.2) (units ( unknown) date) X106/uL unknown) (unknown) (no (unknown) (unknown) RBC 3.91 L (units (unk nown) date) (4.0-5.2) X106/uL unknown) (unknown) (no (unknown) (unknown) RDW (11.6-14.8) % (units (unknown) date) unknown) (unknown) (no (unknown) (unknown) RDW 14.7 (units (unkno wn) date) (11.6-14.8) % unknown) (unknown) (no (unknown) (unknown) Referrals: (units (unk nown) date) unknown) (unknown) (no (unknown) (unknown) Related Data (units (u nknown) date) unknown) (unknown) (no (unknown) (unknown) Respiratory Rate (units (unknown) date) 18 09/28/22 11:33 unknown) (unknown) (no (unknown) (unknown) Respiratory Rate (units (unknown) date) 18 15 29 H unknown) (unknown) (no (unknown) (unknown) Respiratory Rate (units (unknown) date) 24 unknown) (unknown) (no (unknown) (unknown) Respiratory Rate (units (unknown) date) 33 H unknown) (unknown) (no (unknown) (unknown) Respiratory Rate (units (unknown) date) unknown) (unknown) (no (unknown) (unknown) Rx Instructions: (units (unknown) date) unknown) (unknown) (no (unknown) (unknown) SARS-CoV-2 (PCR) (units (unknown) date) (Negative) unknown) (unknown) (no (unknown) (unknown) SARS-CoV-2 (PCR) (units (unknown) date) Negative unknown) (Negative) (unknown) (no (unknown) (unknown) STOMACH (units (unkno wn) date) unknown) (unknown) (no (unknown) (unknown) SVT (units (unkno wn) date) (supraventricular unknown) tachycardia) (unknown) (no (unknown) (unknown) SaO2 85%,while (units (unknown) date) walking SaO2 95% unknown) with 2L for pulmonary fibrosis (unknown) (no (unknown) (unknown) SaO2 w/ 2L O2 95% (units (unknown) date) unknown) (unknown) (no (unknown) (unknown) Irma Holder DO (units (unknown) date) [Primary Care unknown) Provider] (unknown) (no (unknown) (unknown) See Rx (units (unkno wn) date) Instructions unknown) .Route .MEDSUPPLY Qty: 1 0RF (unknown) (no (unknown) (unknown) Shoulder pain (units ( unknown) date) unknown) (unknown) (no (unknown) (unknown) Signed By: (units (unk nown) date) unknown) (unknown) (no (unknown) (unknown) Sleep apnea (units (un known) date) unknown) (unknown) (no (unknown) (unknown) Smoking Status: (units (unknown) date) Former smoker unknown) (unknown) (no (unknown) (unknown) Social History (units (unknown) date) unknown) (unknown) (no (unknown) (unknown) Sodium (137-145) (units (unknown) date) mmol/L unknown) (unknown) (no (unknown) (unknown) Sodium 136 L (units (u nknown) date) (137-145) mmol/L unknown) (unknown) (no (unknown) (unknown) Source: patient (units (unknown) date) unknown) (unknown) (no (unknown) (unknown) Stated Complaint: (units (unknown) date) heart problems unknown) sent by Dr. Holder (unknown) (no (unknown) (unknown) [id number] (units (unknown) date) Reductase AdvReac unknown) Intermediate MUSCLE Verified 09/28/22 11:32 (unknown) (no (unknown) (unknown) Stop: 09/28/22 (units (unknown) date) 12:31 unknown) (unknown) (no (unknown) (unknown) Substance Use (units ( unknown) date) Type: does not use unknown) (unknown) (no (unknown) (unknown) Surgical History (units (unknown) date) (Updated 06/14/22 unknown) @ 22:24 by Sherita Carreon) (unknown) (no (unknown) (unknown) Temperature 96.7 (units (unknown) date) F L 09/28/22 11:33 unknown) (unknown) (no (unknown) (unknown) Temperature 96.7 (units (unknown) date) F L unknown) (unknown) (no (unknown) (unknown) Temperature (units (un known) date) unknown) (unknown) (no (unknown) (unknown) Time Seen by (units (u nknown) date) Provider: 09/28/22 unknown) 11:43 (unknown) (no (unknown) (unknown) Total Bilirubin (units (unknown) date) (0.2-1.3) mg/dL unknown) (unknown) (no (unknown) (unknown) Total Bilirubin (units (unknown) date) 0.5 (0.2-1.3) unknown) mg/dL (unknown) (no (unknown) (unknown) Total Creatine (units (unknown) date) Kinase 48 (30-135) unknown) U/L (unknown) (no (unknown) (unknown) Total Creatine (units (unknown) date) Kinase 51 (30-135) unknown) U/L (unknown) (no (unknown) (unknown) Total Protein (units ( unknown) date) (6.3-8.2) g/dL unknown) (unknown) (no (unknown) (unknown) Total Protein 8.9 (units (unknown) date) H (6.3-8.2) g/dL unknown) (unknown) (no (unknown) (unknown) Troponin + CK (units ( unknown) date) Cardiac Panel Stat unknown) (unknown) (no (unknown) (unknown) Troponin I < (units (u nknown) date) 0.012 (0.01-0.034) unknown) ng/mL (unknown) (no (unknown) (unknown) 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, 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 insulin use (unknown) (no (unknown) (unknown) Vital Signs - 8 (units (unknown) date) hr unknown) (unknown) (no (unknown) (unknown) Vital Signs (units (un known) date) unknown) (unknown) (no (unknown) (unknown) Vital signs: (units (u nknown) date) unknown) (unknown) (no (unknown) (unknown) WBC (4.5-11.0) (units (unknown) date) X103/uL unknown) (unknown) (no (unknown) (unknown) WBC 12.9 H (units (unk nown) date) (4.5-11.0) X103/uL unknown) (unknown) (no (unknown) (unknown) XR chest 1V Stat (units (unknown) date) unknown) (unknown) (no (unknown) (unknown) [Embedded Image (units (unknown) date) Not Available] unknown) (unknown) (no (unknown) (unknown) [From FOSAMAX] (units (unknown) date) STOMACH unknown) (unknown) (no (unknown) (unknown) [[id number] (units (unknown) date) REDUCTASE WEIGHT unknown) LOSS (unknown) (no (unknown) (unknown) acetaminophen 500 (units (unknown) date) mg tablet 500 mg unknown) PO Q6HP PRN pain ##0 05/24/17 09/26/22 (unknown) (no (unknown) (unknown) acetaminophen (units ( unknown) date) [Tylenol Extra unknown) Strength] 500 MG tablet (unknown) (no (unknown) (unknown) alcohol intake (units (unknown) date) frequency: 0-2 unknown) drinks per day (unknown) (no (unknown) (unknown) alendronate 70 mg (units (unknown) date) tablet (Fosamax) unknown) 70 mg PO QWEEK 09/26/22 09/26/22 (unknown) (no (unknown) (unknown) alendronate (units (un known) date) [Fosamax] 70 mg unknown) tablet (unknown) (no (unknown) (unknown) alendronate (units (un known) date) sodium AdvReac unknown) Intermediate UPSET Verified 09/28/22 11:32 (unknown) (no (unknown) (unknown) dx: Pulmonary (units ( unknown) date) Fibrosis unknown) (unknown) (no (unknown) (unknown) ezetimibe [From (units (unknown) date) ZETIA] AdvReac unknown) Mild COUGHING Verified 09/28/22 11:32 (unknown) (no (unknown) (unknown) glimepiride 1 mg (units (unknown) date) tablet (Amaryl) 1 unknown) mg PO DAILY #0 tabs 09/26/22 09/26/22 (unknown) (no (unknown) (unknown) glimepiride (units (un known) date) [Amaryl] 1 mg unknown) tablet (unknown) (no (unknown) (unknown) household (units (unkn own) date) members: spouse unknown) (unknown) (no (unknown) (unknown) hydrocodone 5 (units ( unknown) date) mg-acetaminophen unknown) 325 0.5 - 1 tab PO BEDTIME PRN pain 08/24/22 (unknown) (no (unknown) (unknown) hydrocodone-aceta (units (unknown) date) minophen 5-325 mg unknown) tablet (unknown) (no (unknown) (unknown) losartan 100 mg (units (unknown) date) tablet 100 mg PO unknown) DAILY blood pressure #90 08/24/22 (unknown) (no (unknown) (unknown) losartan 100 mg (units (unknown) date) tablet unknown) (unknown) (no (unknown) (unknown) mg tablet #30 (units ( unknown) date) tabs unknown) (unknown) (no (unknown) (unknown) omeprazole [From (units (unknown) date) PRILOSEC] AdvReac unknown) Intermediate UPSET Verified 09/28/22 11:32 (unknown) (no (unknown) (unknown) oxygen #1 ea (units (u nknown) date) 06/17/22 unknown) (unknown) (no (unknown) (unknown) oxygen (units (unkno wn) date) concentrator #1 ea unknown) 08/18/22 (unknown) (no (unknown) (unknown) oxygen (units (unkno wn) date) concentrator. 2L unknown) by NC with activity and while sleeping (unknown) (no (unknown) (unknown) pantoprazole 40 (units (unknown) date) mg tablet,delayed unknown) 40 mg PO DAILY Hiatal hernia--gerd 09/26/22 (unknown) (no (unknown) (unknown) pantoprazole 40 (units (unknown) date) mg tablet,delayed unknown) release (DR/EC) (unknown) (no (unknown) (unknown) plant stanol (units (u nknown) date) tim 450 mg unknown) tablet 1 tab PO QAM 05/17/18 09/26/22 (unknown) (no (unknown) (unknown) plant stanol (units (u nknown) date) tim [Cholest unknown) Off] 450 mg Tablet (unknown) (no (unknown) (unknown) release (units (unkno wn) date) unknown) (unknown) (no (unknown) (unknown) room air Sa02 85% (units (unknown) date) while walking unknown) (unknown) (no (unknown) (unknown) room air SaO2 95% (units (unknown) date) at rest unknown) (unknown) (no (unknown) (unknown) tabs (units (unkno wn) date) unknown) (unknown) (no (unknown) (unknown) tramadol (units (unkno wn) date) [TRAMADOL] Allergy unknown) Intermediate HEART Verified 09/28/22 11:32 Result panel 286 (unknown) (no (unknown) (unknown) (no value) (units (unk nown) date) unknown) (unknown) (no (unknown) (unknown) (Cholest Off) (units ( unknown) date) unknown) (unknown) (no (unknown) (unknown) (DME) oxygen (units (u nknown) date) concentrator unknown) (unknown) (no (unknown) (unknown) (DME) oxygen (units (u nknown) date) unknown) (unknown) (no (unknown) (unknown) (Tylenol Extra (units (unknown) date) Strength) unknown) (unknown) (no (unknown) (unknown) 0.5 - 1 tab PO (units (unknown) date) BEDTIME PRN unknown) (Reason: pain) Qty: 30 0RF (unknown) (no (unknown) (unknown) 09/26/22 (units (unkno wn) date) unknown) (unknown) (no (unknown) (unknown) 09/28/22 09/28/22 (units (unknown) date) 09/28/22 unknown) Range/Units (unknown) (no (unknown) (unknown) 09/28/22 09/28/22 (units (unknown) date) Range/Units unknown) (unknown) (no (unknown) (unknown) 09/28/22 11:50 (units (unknown) date) unknown) (unknown) (no (unknown) (unknown) 09/28/22 11:56 (units (unknown) date) unknown) (unknown) (no (unknown) (unknown) 09/28/22 12:55 (units (unknown) date) unknown) (unknown) (no (unknown) (unknown) 09/28/22 14:20 (units (unknown) date) unknown) (unknown) (no (unknown) (unknown) 09/28/22 15:13 (units (unknown) date) unknown) (unknown) (no (unknown) (unknown) 09/28/22 (units (unkno wn) date) unknown) (unknown) (no (unknown) (unknown) 1 mg PO DAILY (units ( unknown) date) Qty: 0 unknown) (unknown) (no (unknown) (unknown) 1 tab PO QAM (units (u nknown) date) unknown) (unknown) (no (unknown) (unknown) 1. 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 (unknown) (no (unknown) (unknown) 100 mg PO DAILY (units (unknown) date) Qty: 90 3RF unknown) (unknown) (no (unknown) (unknown) 11:33 09/28/22 (units (unknown) date) unknown) (unknown) (no (unknown) (unknown) 11:42 09/28/22 (units (unknown) date) unknown) (unknown) (no (unknown) (unknown) 11:50 11:50 11:50 (units (unknown) date) unknown) (unknown) (no (unknown) (unknown) [address] [place] [address] (units (unknown) date) unknown) (unknown) (no (unknown) (unknown) 12:00 (units (unkno wn) date) unknown) (unknown) (no (unknown) (unknown) 12:01 09/28/22 (units (unknown) date) unknown) (unknown) (no (unknown) (unknown) 12:30 09/28/22 (units (unknown) date) unknown) (unknown) (no (unknown) (unknown) 12:47 (units (unkno wn) date) unknown) (unknown) (no (unknown) (unknown) 12:55 14:20 (units (un known) date) unknown) (unknown) (no (unknown) (unknown) 12:58 09/28/22 (units (unknown) date) unknown) (unknown) (no (unknown) (unknown) 12:58 (units (unkno wn) date) unknown) (unknown) (no (unknown) (unknown) 13:00 09/28/22 (units (unknown) date) unknown) (unknown) (no (unknown) (unknown) 13:00 (units (unkno wn) date) unknown) (unknown) (no (unknown) (unknown) 13:10 02/15/23 (units (unknown) date) unknown) (unknown) (no (unknown) (unknown) 13:20 09/28/22 (units (unknown) date) unknown) (unknown) (no (unknown) (unknown) 13:20 (units (unkno wn) date) unknown) (unknown) (no (unknown) (unknown) 13:30 09/28/22 (units (unknown) date) unknown) (unknown) (no (unknown) (unknown) 13:31 09/28/22 (units (unknown) date) unknown) (unknown) (no (unknown) (unknown) 13:31 (units (unkno wn) date) unknown) (unknown) (no (unknown) (unknown) 13:40 09/28/22 (units (unknown) date) unknown) (unknown) (no (unknown) (unknown) 13:40 (units (unkno wn) date) unknown) (unknown) (no (unknown) (unknown) 13:50 09/28/22 (units (unknown) date) unknown) (unknown) (no (unknown) (unknown) 14:00 (units (unkno wn) date) unknown) (unknown) (no (unknown) (unknown) 14:01 09/28/22 (units (unknown) date) unknown) (unknown) (no (unknown) (unknown) 14:10 09/28/22 (units (unknown) date) unknown) (unknown) (no (unknown) (unknown) 14:10 (units (unkno wn) date) unknown) (unknown) (no (unknown) (unknown) 14:20 09/28/22 (units (unknown) date) unknown) (unknown) (no (unknown) (unknown) 14:20 (units (unkno wn) date) unknown) (unknown) (no (unknown) (unknown) 14:30 09/28/22 (units (unknown) date) unknown) (unknown) (no (unknown) (unknown) 14:40 09/28/22 (units (unknown) date) unknown) (unknown) (no (unknown) (unknown) 14:40 (units (unkno wn) date) unknown) (unknown) (no (unknown) (unknown) 14:50 09/28/22 (units (unknown) date) unknown) (unknown) (no (unknown) (unknown) 14:50 (units (unkno wn) date) unknown) (unknown) (no (unknown) (unknown) 15:00 09/28/22 (units (unknown) date) unknown) (unknown) (no (unknown) (unknown) 15:12 (units (unkno wn) date) unknown) (unknown) (no (unknown) (unknown) 2. Development of (units (unknown) date) masslike densities unknown) in the right lung. (unknown) (no (unknown) (unknown) 2L by NC with (units ( unknown) date) activity and while unknown) sleeping room air SaO2 95% at rest,room air (unknown) (no (unknown) (unknown) 3. Large hiatal (units (unknown) date) hernia. unknown) (unknown) (no (unknown) (unknown) 40 mg PO DAILY (units (unknown) date) unknown) (unknown) (no (unknown) (unknown) 500 mg PO Q6HP (units (unknown) date) PRN (Reason: pain) unknown) Qty: 0 (unknown) (no (unknown) (unknown) 70 mg PO QWEEK (units (unknown) date) unknown) (unknown) (no (unknown) (unknown) ? (units (unkno wn) date) unknown) (unknown) (no (unknown) (unknown) ALT (<35) IU/L (units (unknown) date) unknown) (unknown) (no (unknown) (unknown) ALT 21 (<35) IU/L (units (unknown) date) unknown) (unknown) (no (unknown) (unknown) APTT (26-36) (units (u nknown) date) SECONDS unknown) (unknown) (no (unknown) (unknown) APTT 29 (26-36) (units (unknown) date) SECONDS unknown) (unknown) (no (unknown) (unknown) AST (14-36) IU/L (units (unknown) date) unknown) (unknown) (no (unknown) (unknown) AST 25 (14-36) (units (unknown) date) IU/L unknown) (unknown) (no (unknown) (unknown) Accession Number: (units (unknown) date) [id number] ?? unknown) (unknown) (no (unknown) (unknown) Acct:[id number] (units (unknown) date) unknown) (unknown) (no (unknown) (unknown) After history and (units (unknown) date) exam CBC CMP unknown) troponin x2, chest x-ray CT chest have been (unknown) (no (unknown) (unknown) Age/Sex: 86 / F (units (unknown) date) unknown) (unknown) (no (unknown) (unknown) Albumin (3.5-5.0) (units (unknown) date) g/dL unknown) (unknown) (no (unknown) (unknown) Albumin 4.4 (units (un known) date) (3.5-5.0) g/dL unknown) (unknown) (no (unknown) (unknown) Albumin/Globulin (units (unknown) date) Ratio (1.0-2.8) unknown) (unknown) (no (unknown) (unknown) Albumin/Globulin (units (unknown) date) Ratio 1.0 unknown) (1.0-2.8) (unknown) (no (unknown) (unknown) Alkaline (units (unkno wn) date) Phosphatase unknown) (38-126) U/L (unknown) (no (unknown) (unknown) Alkaline (units (unkno wn) date) Phosphatase 52 unknown) (38-126) U/L (unknown) (no (unknown) (unknown) Allergies (units (unkn own) date) unknown) (unknown) (no (unknown) (unknown) Allergy/AdvReac (units (unknown) date) Type Severity unknown) Reaction Status Date / Time (unknown) (no (unknown) (unknown) [place], [place] (units ( unknown) date) [id number] unknown) (unknown) (no (unknown) (unknown) Anesthesia (units (unk nown) date) unknown) (unknown) (no (unknown) (unknown) Approved by: (units (u nknown) date) pérez Cisse M.D. on 09/28/2022 at 12:20 ? (unknown) (no (unknown) (unknown) Aspirin (Aspirin (units (unknown) date) 81 Mg Chew Tab) unknown) 324 mg PO NOW ONE (unknown) (no (unknown) (unknown) BACK: No flank (units (unknown) date) tenderness. unknown) (unknown) (no (unknown) (unknown) BUN (7-17) mg/dL (units (unknown) date) unknown) (unknown) (no (unknown) (unknown) BUN 17 (7-17) (units ( unknown) date) mg/dL unknown) (unknown) (no (unknown) (unknown) BUN/Creatinine (units (unknown) date) Ratio (6-22) unknown) (unknown) (no (unknown) (unknown) BUN/Creatinine (units (unknown) date) Ratio 29.8 H unknown) (6-22) (unknown) (no (unknown) (unknown) Baso # (Auto) (units ( unknown) date) (0-100) /uL unknown) (unknown) (no (unknown) (unknown) Baso # (Auto) 100 (units (unknown) date) (0-100) /uL unknown) (unknown) (no (unknown) (unknown) Baso % (Auto) (units ( unknown) date) (0-2) % unknown) (unknown) (no (unknown) (unknown) Baso % (Auto) 0.9 (units (unknown) date) (0-2) % unknown) (unknown) (no (unknown) (unknown) Bedside Urine (units ( unknown) date) Bilirubin - unknown) Negative (unknown) (no (unknown) (unknown) Bedside Urine (units ( unknown) date) Glucose Negative unknown) (unknown) (no (unknown) (unknown) Bedside Urine (units ( unknown) date) Ketone - Negative unknown) (unknown) (no (unknown) (unknown) Bedside Urine (units ( unknown) date) Leukocytes - unknown) Negative (unknown) (no (unknown) (unknown) Bedside Urine (units ( unknown) date) Nitrite - Negative unknown) (unknown) (no (unknown) (unknown) Bedside Urine (units ( unknown) date) Occult Blood - unknown) Negative (unknown) (no (unknown) (unknown) Bedside Urine (units ( unknown) date) Protein - Negative unknown) (unknown) (no (unknown) (unknown) Bedside Urine (units ( unknown) date) Urobilinogen - unknown) Negative (unknown) (no (unknown) (unknown) Bedside Urine pH (units (unknown) date) 6.0 unknown) (unknown) (no (unknown) (unknown) Benign essential (units (unknown) date) HTN unknown) (unknown) (no (unknown) (unknown) Blood Pressure (units (unknown) date) 133/70 140/73 unknown) (unknown) (no (unknown) (unknown) Blood Pressure (units (unknown) date) 136/73 145/73 H unknown) (unknown) (no (unknown) (unknown) Blood Pressure (units (unknown) date) 151/80 H unknown) (unknown) (no (unknown) (unknown) Blood Pressure (units (unknown) date) 153/100 H 164/89 H unknown) (unknown) (no (unknown) (unknown) Blood Pressure (units (unknown) date) 153/74 H unknown) (unknown) (no (unknown) (unknown) Blood Pressure (units (unknown) date) 160/81 H unknown) (unknown) (no (unknown) (unknown) Blood Pressure (units (unknown) date) 162/79 H 09/28/22 unknown) 11:33 (unknown) (no (unknown) (unknown) Blood Pressure (units (unknown) date) 162/79 H unknown) (unknown) (no (unknown) (unknown) Blood Pressure (units (unknown) date) 162/82 H unknown) (unknown) (no (unknown) (unknown) Blood Pressure (units (unknown) date) 162/83 H unknown) (unknown) (no (unknown) (unknown) Blood Pressure (units (unknown) date) 165/82 H 164/84 H unknown) (unknown) (no (unknown) (unknown) Blood Pressure (units (unknown) date) 169/91 H unknown) (unknown) (no (unknown) (unknown) Blood Pressure (units (unknown) date) 178/83 H 147/70 H unknown) (unknown) (no (unknown) (unknown) Blood Pressure (units (unknown) date) 186/84 H 153/100 H unknown) (unknown) (no (unknown) (unknown) Blood Pressure (units (unknown) date) unknown) (unknown) (no (unknown) (unknown) Bones and chest (units (unknown) date) wall:? No unknown) suspicious bony lesions.? Overlying soft tissues (unknown) (no (unknown) (unknown) CARDIOVASCULAR: (units (unknown) date) Positive chest unknown) pain, negative palpitations (unknown) (no (unknown) (unknown) CARDIOVASCULAR: (units (unknown) date) Regular rate and unknown) rhythm without murmurs (unknown) (no (unknown) (unknown) CC: Chest pain (units (unknown) date) unknown) (unknown) (no (unknown) (unknown) CK-MB (CK-2) Rel (units (unknown) date) Index TNP unknown) (unknown) (no (unknown) (unknown) CK-MB (CK-2) TNP (units (unknown) date) unknown) (unknown) (no (unknown) (unknown) COMPARISON:? (units (u nknown) date) [facility], unknown) CT, CT CHEST WO CON, 03/04/2022, 12:47. (unknown) (no (unknown) (unknown) COVID19 -N[place] (units (unknown) date) RAPID/Pre-Proc unknown) Stat (unknown) (no (unknown) (unknown) CT chest w con (units (unknown) date) Stat unknown) (unknown) (no (unknown) (unknown) Calcium (units (unkno wn) date) (8.4-10.2) mg/dL unknown) (unknown) (no (unknown) (unknown) Calcium 10.0 (units (u nknown) date) (8.4-10.2) mg/dL unknown) (unknown) (no (unknown) (unknown) Carbon Dioxide (units (unknown) date) (22-32) mmol/L unknown) (unknown) (no (unknown) (unknown) Carbon Dioxide 26 (units (unknown) date) (22-32) mmol/L unknown) (unknown) (no (unknown) (unknown) Chest x-ray: (units (u nknown) date) unknown) (unknown) (no (unknown) (unknown) Chief Complaint: (units (unknown) date) Chest Pain unknown) (unknown) (no (unknown) (unknown) Chloride (98-107) (units (unknown) date) mmol/L unknown) (unknown) (no (unknown) (unknown) Chloride 102 (units (u nknown) date) (98-107) mmol/L unknown) (unknown) (no (unknown) (unknown) Chronic back pain (units (unknown) date) unknown) (unknown) (no (unknown) (unknown) Comment:? (units (unkn own) date) Recommend CT chest unknown) with contrast for further evaluation.? (unknown) (no (unknown) (unknown) Complete Blood (units (unknown) date) Count AUTO DIFF unknown) Stat (unknown) (no (unknown) (unknown) Complicating (units (u nknown) date) co-morbidities: unknown) Hypertension pulmonary fibrosis SVT (unknown) (no (unknown) (unknown) Comprehensive (units ( unknown) date) Metabolic Panel unknown) Stat (unknown) (no (unknown) (unknown) Consultations: (units (unknown) date) unknown) (unknown) (no (unknown) (unknown) Course (units (unkno wn) date) unknown) (unknown) (no (unknown) (unknown) Creatinine (units (unk nown) date) (0.52-1.04) mg/dL unknown) (unknown) (no (unknown) (unknown) Creatinine 0.57 (units (unknown) date) (0.52-1.04) mg/dL unknown) (unknown) (no (unknown) (unknown) : 1935 (units (unknown) date) Acct:[id number] unknown) (unknown) (no (unknown) (unknown) : 1935 (units (unknown) date) unknown) (unknown) (no (unknown) (unknown) Data collected (units (unknown) date) from: Patient and unknown) (unknown) (no (unknown) (unknown) Date of Service: (units (unknown) date) 09/28/22 unknown) (unknown) (no (unknown) (unknown) Departure (units (unkn own) date) unknown) (unknown) (no (unknown) (unknown) Diagnosis: (units (unk nown) date) unknown) (unknown) (no (unknown) (unknown) Dictated by: (units (u nknown) date) pérez Cisse M.D. on 09/28/2022 at 12:18 ? ? (unknown) (no (unknown) (unknown) Differential (units (u nknown) date) considered: unknown) Includes but not limited to STEMI non-STEMI unstable (unknown) (no (unknown) (unknown) Discharge Plan (units (unknown) date) unknown) (unknown) (no (unknown) (unknown) Discontinued (units (u nknown) date) Medications unknown) (unknown) (no (unknown) (unknown) Discussion: (units (un known) date) unknown) (unknown) (no (unknown) (unknown) Documented By: RB (units (unknown) date) unknown) (unknown) (no (unknown) (unknown) ED Orders (units (unkn own) date) unknown) (unknown) (no (unknown) (unknown) EKG-12 Lead Stat (units (unknown) date) unknown) (unknown) (no (unknown) (unknown) ENT: Mucous (units (un known) date) membranes moist. unknown) (unknown) (no (unknown) (unknown) ER Physician: (units ( unknown) date) Chad Blanco MD unknown) (unknown) (no (unknown) (unknown) EXTREMITIES: No (units (unknown) date) gross deformities. unknown) (unknown) (no (unknown) (unknown) EYES: Pupils (units (u nknown) date) equal round unknown) (unknown) (no (unknown) (unknown) Emergency Report (units (unknown) date) unknown) (unknown) (no (unknown) (unknown) Eos # (Auto) (units (u nknown) date) (0-450) /uL unknown) (unknown) (no (unknown) (unknown) Eos # (Auto) 500 (units (unknown) date) H (0-450) /uL unknown) (unknown) (no (unknown) (unknown) Eos % (Auto) (units (u nknown) date) (2-4) % unknown) (unknown) (no (unknown) (unknown) Eos % (Auto) 3.5 (units (unknown) date) (2-4) % unknown) (unknown) (no (unknown) (unknown) Esterase (units (unkno wn) date) unknown) (unknown) (no (unknown) (unknown) Estimated GFR > (units (unknown) date) 60 (>60) mL/min unknown) (unknown) (no (unknown) (unknown) Estimated GFR (units ( unknown) date) (>60) mL/min unknown) (unknown) (no (unknown) (unknown) Exam Narrative: (units (unknown) date) unknown) (unknown) (no (unknown) (unknown) Exam documented (units (unknown) date) above, pertinent unknown) findings include: No reproducible chest (unknown) (no (unknown) (unknown) Exam (units (unkno wn) date) unknown) (unknown) (no (unknown) (unknown) FINDINGS:? (units (unk nown) date) unknown) (unknown) (no (unknown) (unknown) GASTROINTESTINAL: (units (unknown) date) Abdomen soft, unknown) non-tender (unknown) (no (unknown) (unknown) GASTROINTESTINAL: (units (unknown) date) negative nausea, unknown) vomiting, abdominal pain (unknown) (no (unknown) (unknown) GENERAL: in no (units (unknown) date) distress, not unknown) toxic not dyspneic (unknown) (no (unknown) (unknown) GENERAL: negative (units (unknown) date) chills, fatigue, unknown) malaise, fever, sweats. (unknown) (no (unknown) (unknown) GERD (units (unkno wn) date) (gastroesophageal unknown) reflux disease) (unknown) (no (unknown) (unknown) : negative (units (u nknown) date) dysuria, unknown) frequency, hematuria (unknown) (no (unknown) (unknown) General (units (unkno wn) date) unknown) (unknown) (no (unknown) (unknown) Globulin (units (unkno wn) date) (1.7-4.1) g/dL unknown) (unknown) (no (unknown) (unknown) Globulin 4.5 H (units (unknown) date) (1.7-4.1) g/dL unknown) (unknown) (no (unknown) (unknown) Glucose (80-110) (units (unknown) date) mg/dL unknown) (unknown) (no (unknown) (unknown) Glucose 174 H (units ( unknown) date) (80-110) mg/dL unknown) (unknown) (no (unknown) (unknown) HEAD: (units (unkno wn) date) Normocephalic. unknown) (unknown) (no (unknown) (unknown) HEENT: negative (units (unknown) date) sinus pain, ear unknown) pain, sore throat (unknown) (no (unknown) (unknown) HPI - Chest Pain (units (unknown) date) unknown) (unknown) (no (unknown) (unknown) HPI narrative: (units (unknown) date) unknown) (unknown) (no (unknown) (unknown) Hct (36-46) % (units ( unknown) date) unknown) (unknown) (no (unknown) (unknown) Hct 36.2 (36-46) (units (unknown) date) % unknown) (unknown) (no (unknown) (unknown) Hearing loss (units (u nknown) date) unknown) (unknown) (no (unknown) (unknown) Hgb (12.0-16.0) (units (unknown) date) g/dL unknown) (unknown) (no (unknown) (unknown) Hgb 12.2 (units (unkno wn) date) (12.0-16.0) g/dL unknown) (unknown) (no (unknown) (unknown) History of (units (unk nown) date) Present Illness unknown) (unknown) (no (unknown) (unknown) History of total (units (unknown) date) hip replacement unknown) (unknown) (no (unknown) (unknown) History of (units (unk nown) date) urinary unknown) incontinence (unknown) (no (unknown) (unknown) Home Medications (units (unknown) date) unknown) (unknown) (no (unknown) (unknown) IMPRESSION:? (units (u nknown) date) unknown) (unknown) (no (unknown) (unknown) INDICATIONS:? (units ( unknown) date) chest pain unknown) (unknown) (no (unknown) (unknown) INHIBITOR] (units (unk nown) date) unknown) (unknown) (no (unknown) (unknown) INR (0.9-1.3) (units ( unknown) date) unknown) (unknown) (no (unknown) (unknown) INR 1.0 (0.9-1.3) (units (unknown) date) unknown) (unknown) (no (unknown) (unknown) Imaging Data (units (u nknown) date) unknown) (unknown) (no (unknown) (unknown) Imaging studies (units (unknown) date) independently unknown) reviewed: Chest x-ray no acute process (unknown) (no (unknown) (unknown) Independently (units ( unknown) date) reviewed EKG as unknown) above normal sinus rhythm rate [address] elevation (unknown) (no (unknown) (unknown) Inhibitor ACHES (units (unknown) date) AND unknown) (unknown) (no (unknown) (unknown) Initial Vital (units ( unknown) date) Signs unknown) (unknown) (no (unknown) (unknown) Initial Vital (units ( unknown) date) Signs: unknown) (unknown) (no (unknown) (unknown) [facility] (units (unknown) date) [address] unknown) [place] [address] (unknown) (no (unknown) (unknown) [facility] (units (unknown) date) unknown) (unknown) (no (unknown) (unknown) Lab Data (units (unkno wn) date) unknown) (unknown) (no (unknown) (unknown) Lab Results (units (un known) date) unknown) (unknown) (no (unknown) (unknown) Lab Test results (units (unknown) date) independently unknown) reviewed as above. Pertinent findings: (unknown) (no (unknown) (unknown) Labs: (units (unkno wn) date) unknown) (unknown) (no (unknown) (unknown) Last Admin: (units (un known) date) 09/28/22 12:46 unknown) Dose: 324 mg (unknown) (no (unknown) (unknown) Last Admin: (units (un known) date) 09/28/22 12:47 unknown) Dose: 0.5 inch (unknown) (no (unknown) (unknown) Last Admin: (units (un known) date) 09/28/22 15:33 unknown) Dose: 1,000 mls/hr (unknown) (no (unknown) (unknown) Limitations: no (units (unknown) date) limitations unknown) (unknown) (no (unknown) (unknown) Lipase (23-300) (units (unknown) date) U/L unknown) (unknown) (no (unknown) (unknown) Lipase 52 (units (unkn own) date) (23-300) U/L unknown) (unknown) (no (unknown) (unknown) Lipase Stat (units (un known) date) unknown) (unknown) (no (unknown) (unknown) Loc: ED (units (unkno wn) date) unknown) (unknown) (no (unknown) (unknown) Lungs and (units (unkn own) date) pleura:? unknown) Development of nodular densities in the right apex and right (unknown) (no (unknown) (unknown) Lymph # (Auto) (units (unknown) date) (1002-1908) /uL unknown) (unknown) (no (unknown) (unknown) Lymph # (Auto) (units (unknown) date) 2000 (8417-9941) unknown) /uL (unknown) (no (unknown) (unknown) Lymph % (Auto) (units (unknown) date) (25-40) % unknown) (unknown) (no (unknown) (unknown) Lymph % (Auto) (units (unknown) date) 15.3 L (25-40) % unknown) (unknown) (no (unknown) (unknown) [id number] (units (unk nown) date) unknown) (unknown) (no (unknown) (unknown) MCH (26-34) PG (units (unknown) date) unknown) (unknown) (no (unknown) (unknown) MCH 31.2 (26-34) (units (unknown) date) PG unknown) (unknown) (no (unknown) (unknown) MCHC (30-36) % (units (unknown) date) unknown) (unknown) (no (unknown) (unknown) MCHC 33.7 (30-36) (units (unknown) date) % unknown) (unknown) (no (unknown) (unknown) MCV (80-100) fL (units (unknown) date) unknown) (unknown) (no (unknown) (unknown) MCV 92.5 (80-100) (units (unknown) date) fL unknown) (unknown) (no (unknown) (unknown) MDM - Chest Pain (units (unknown) date) unknown) (unknown) (no (unknown) (unknown) MDM Narrative (units ( unknown) date) unknown) (unknown) (no (unknown) (unknown) MDM (units (unkno wn) date) unknown) (unknown) (no (unknown) (unknown) MR#: [id number] (units (unknown) date) unknown) (unknown) (no (unknown) (unknown) MUSCULOSKELETAL: (units (unknown) date) negative muscle or unknown) bony pain (unknown) (no (unknown) (unknown) Magnesium (units (unkn own) date) (1.6-2.3) mg/dL unknown) (unknown) (no (unknown) (unknown) Magnesium 1.7 (units ( unknown) date) (1.6-2.3) mg/dL unknown) (unknown) (no (unknown) (unknown) Magnesium Stat (units (unknown) date) unknown) (unknown) (no (unknown) (unknown) Mediastinum:? (units ( unknown) date) Mediastinal unknown) contours appear normal.? Heart size is normal.? Large (unknown) (no (unknown) (unknown) Medical History (units (unknown) date) (Updated 09/26/22 unknown) @ 14:31 by Irma Holder DO) (unknown) (no (unknown) (unknown) Medical decision (units (unknown) date) making narrative: unknown) (unknown) (no (unknown) (unknown) Medical records (units (unknown) date) reviewed: Records unknown) from primary care office visit (unknown) (no (unknown) (unknown) Medication (units (unk nown) date) Instructions unknown) Recorded Confirmed (unknown) (no (unknown) (unknown) Medication (units (unk nown) date) Instructions unknown) Recorded (unknown) (no (unknown) (unknown) Mode of arrival: (units (unknown) date) Wheelchair unknown) (unknown) (no (unknown) (unknown) [place] # (Auto) (units ( unknown) date) (0-900) /uL unknown) (unknown) (no (unknown) (unknown) [place] # (Auto) (units ( unknown) date) 1000 H (0-900) /uL unknown) (unknown) (no (unknown) (unknown) [place] % (Auto) (units ( unknown) date) (3-14) % unknown) (unknown) (no (unknown) (unknown) [place] % (Auto) 7.8 (units (unknown) date) (3-14) % unknown) (unknown) (no (unknown) (unknown) NECK: Trachea (units ( unknown) date) midline. unknown) (unknown) (no (unknown) (unknown) NEURO: AOx4. (units (u nknown) date) unknown) (unknown) (no (unknown) (unknown) NEUROLOGIC: (units (un known) date) negative weakness, unknown) numbness (unknown) (no (unknown) (unknown) Narrative (units (unkn own) date) unknown) (unknown) (no (unknown) (unknown) Narrative: (units (unk nown) date) unknown) (unknown) (no (unknown) (unknown) Neut # (Auto) (units ( unknown) date) (6753-0011) /uL unknown) (unknown) (no (unknown) (unknown) Neut # (Auto) (units ( unknown) date) 9400 H (6206-0715) unknown) /uL (unknown) (no (unknown) (unknown) Neut % (Auto) (units ( unknown) date) (50-75) % unknown) (unknown) (no (unknown) (unknown) Neut % (Auto) (units ( unknown) date) 72.5 (50-75) % unknown) (unknown) (no (unknown) (unknown) Nitroglycerin (units ( unknown) date) (Nitroglycerin unknown) Oint 1 Inch/Gm Oint...G.) 0.5 inch TOP NOW ONE (unknown) (no (unknown) (unknown) No Action (units (unkn own) date) unknown) (unknown) (no (unknown) (unknown) Ordered: (units (unkno wn) date) unknown) (unknown) (no (unknown) (unknown) Ordering (units (unkno wn) date) Provider: unknown) Chad Blanco MD (unknown) (no (unknown) (unknown) Orders (units (unkno wn) date) unknown) (unknown) (no (unknown) (unknown) Osteoarthritis (units (unknown) date) unknown) (unknown) (no (unknown) (unknown) Osteoporosis (units (u nknown) date) unknown) (unknown) (no (unknown) (unknown) Oxygen Delivery (units (unknown) date) Method 09/28/22 unknown) 11:33 (unknown) (no (unknown) (unknown) Oxygen Delivery (units (unknown) date) Method Room Air unknown) (unknown) (no (unknown) (unknown) Oxygen Delivery (units (unknown) date) Method unknown) (unknown) (no (unknown) (unknown) PROCEDURE:? XR (units (unknown) date) CHEST 1V unknown) (unknown) (no (unknown) (unknown) PSYCH: Not (units (unk nown) date) anxious, is unknown) cooperative (unknown) (no (unknown) (unknown) PT (10.1-12.7) (units (unknown) date) SECONDS unknown) (unknown) (no (unknown) (unknown) PT 11.4 (units (unkno wn) date) (10.1-12.7) unknown) SECONDS (unknown) (no (unknown) (unknown) Partial (units (unkno wn) date) Thromboplastin unknown) Time Stat (unknown) (no (unknown) (unknown) Patient History (units (unknown) date) unknown) (unknown) (no (unknown) (unknown) Patient does have (units (unknown) date) history SVT in had unknown) recent Holter monitor. Primary care is (unknown) (no (unknown) (unknown) Patient here for (units (unknown) date) nonreproducible unknown) chest pain. at bedside. Complains of (unknown) (no (unknown) (unknown) Patient: (units (unkno wn) date) Rosita Devi unknown) MR#: (unknown) (no (unknown) (unknown) Patient: (units (unkno wn) date) Rosita Devi unknown) (unknown) (no (unknown) (unknown) Plt Count (units (unkn own) date) (150-400) X103/uL unknown) (unknown) (no (unknown) (unknown) Plt Count 257 (units ( unknown) date) (150-400) X103/uL unknown) (unknown) (no (unknown) (unknown) Potassium (units (unkn own) date) (3.4-5.1) mmol/L unknown) (unknown) (no (unknown) (unknown) Potassium 4.1 (units ( unknown) date) (3.4-5.1) mmol/L unknown) (unknown) (no (unknown) (unknown) Prescriptions: (units (unknown) date) unknown) (unknown) (no (unknown) (unknown) Previous Rx's (units ( unknown) date) unknown) (unknown) (no (unknown) (unknown) Procedure: XR (units ( unknown) date) chest 1V unknown) (unknown) (no (unknown) (unknown) Prothrombin Time (units (unknown) date) INR Stat unknown) (unknown) (no (unknown) (unknown) Pulmonary (units (unkn own) date) fibrosis unknown) (unknown) (no (unknown) (unknown) Pulse Oximetry (units (unknown) date) 100 100 unknown) (unknown) (no (unknown) (unknown) Pulse Oximetry (units (unknown) date) 100 unknown) (unknown) (no (unknown) (unknown) Pulse Oximetry 97 (units (unknown) date) 09/28/22 11:33 unknown) (unknown) (no (unknown) (unknown) Pulse Oximetry 97 (units (unknown) date) 100 100 unknown) (unknown) (no (unknown) (unknown) Pulse Rate 76 81 (units (unknown) date) unknown) (unknown) (no (unknown) (unknown) Pulse Rate 76 (units ( unknown) date) unknown) (unknown) (no (unknown) (unknown) Pulse Rate 78 81 (units (unknown) date) unknown) (unknown) (no (unknown) (unknown) Pulse Rate 80 87 (units (unknown) date) unknown) (unknown) (no (unknown) (unknown) Pulse Rate 81 87 (units (unknown) date) unknown) (unknown) (no (unknown) (unknown) Pulse Rate 81 (units ( unknown) date) unknown) (unknown) (no (unknown) (unknown) Pulse Rate 82 87 (units (unknown) date) unknown) (unknown) (no (unknown) (unknown) Pulse Rate 82 (units ( unknown) date) unknown) (unknown) (no (unknown) (unknown) Pulse Rate 85 (units ( unknown) date) unknown) (unknown) (no (unknown) (unknown) Pulse Rate 86 84 (units (unknown) date) unknown) (unknown) (no (unknown) (unknown) Pulse Rate 86 (units ( unknown) date) unknown) (unknown) (no (unknown) (unknown) Pulse Rate 88 85 (units (unknown) date) unknown) (unknown) (no (unknown) (unknown) Pulse Rate 94 H (units (unknown) date) 09/28/22 11:33 unknown) (unknown) (no (unknown) (unknown) Pulse Rate 94 H (units (unknown) date) 89 89 unknown) (unknown) (no (unknown) (unknown) RACING (units (unkno wn) date) unknown) (unknown) (no (unknown) (unknown) RBC (4.0-5.2) (units ( unknown) date) X106/uL unknown) (unknown) (no (unknown) (unknown) RBC 3.91 L (units (unk nown) date) (4.0-5.2) X106/uL unknown) (unknown) (no (unknown) (unknown) RDW (11.6-14.8) % (units (unknown) date) unknown) (unknown) (no (unknown) (unknown) RDW 14.7 (units (unkno wn) date) (11.6-14.8) % unknown) (unknown) (no (unknown) (unknown) RESPIRATORY: Clear (units (unknown) date) to auscultation. unknown) Breath sounds equal bilaterally. No wheezes, (unknown) (no (unknown) (unknown) RESPIRATORY: (units (u nknown) date) Positive dyspnea, unknown) negative cough (unknown) (no (unknown) (unknown) ROS Unobtainable: (units (unknown) date) All systems unknown) reviewed + are unremarkable except as noted in HPI (unknown) (no (unknown) (unknown) Radiologist's (units ( unknown) date) Impression: unknown) (unknown) (no (unknown) (unknown) Re-evaluations: (units (unknown) date) unknown) (unknown) (no (unknown) (unknown) Referrals: (units (unk nown) date) unknown) (unknown) (no (unknown) (unknown) Related Data (units (u nknown) date) unknown) (unknown) (no (unknown) (unknown) Respiratory Rate (units (unknown) date) 18 09/28/22 11:33 unknown) (unknown) (no (unknown) (unknown) Respiratory Rate (units (unknown) date) 18 15 29 H unknown) (unknown) (no (unknown) (unknown) Respiratory Rate (units (unknown) date) 21 unknown) (unknown) (no (unknown) (unknown) Respiratory Rate (units (unknown) date) 24 unknown) (unknown) (no (unknown) (unknown) Respiratory Rate (units (unknown) date) 33 H unknown) (unknown) (no (unknown) (unknown) Respiratory Rate (units (unknown) date) unknown) (unknown) (no (unknown) (unknown) Review of Systems (units (unknown) date) unknown) (unknown) (no (unknown) (unknown) Rx Instructions: (units (unknown) date) unknown) (unknown) (no (unknown) (unknown) SARS-CoV-2 (PCR) (units (unknown) date) (Negative) unknown) (unknown) (no (unknown) (unknown) SARS-CoV-2 (PCR) (units (unknown) date) Negative unknown) (Negative) (unknown) (no (unknown) (unknown) SKIN: Warm and (units (unknown) date) dry unknown) (unknown) (no (unknown) (unknown) SKIN: negative (units (unknown) date) rash, skin lesions unknown) (unknown) (no (unknown) (unknown) STOMACH (units (unkno wn) date) unknown) (unknown) (no (unknown) (unknown) SVT (units (unkno wn) date) (supraventricular unknown) tachycardia) (unknown) (no (unknown) (unknown) SaO2 85%,while (units (unknown) date) walking SaO2 95% unknown) with 2L for pulmonary fibrosis (unknown) (no (unknown) (unknown) SaO2 w/ 2L O2 95% (units (unknown) date) unknown) (unknown) (no (unknown) (unknown) Irma Holder DO (units (unknown) date) [Primary Care unknown) Provider] (unknown) (no (unknown) (unknown) See Rx (units (unkno wn) date) Instructions unknown) .Route .MEDSUPPLY Qty: 1 0RF (unknown) (no (unknown) (unknown) Shoulder pain (units ( unknown) date) unknown) (unknown) (no (unknown) (unknown) Signed By: (units (unk nown) date) unknown) (unknown) (no (unknown) (unknown) Signed (units (unkno wn) date) unknown) (unknown) (no (unknown) (unknown) Sleep apnea (units (un known) date) unknown) (unknown) (no (unknown) (unknown) Smoking Status: (units (unknown) date) Former smoker unknown) (unknown) (no (unknown) (unknown) Social History (units (unknown) date) unknown) (unknown) (no (unknown) (unknown) Sodium (137-145) (units (unknown) date) mmol/L unknown) (unknown) (no (unknown) (unknown) Sodium 136 L (units (u nknown) date) (137-145) mmol/L unknown) (unknown) (no (unknown) (unknown) Sodium Chloride (units (unknown) date) (Normal Saline unknown) 0.9%) 500 mls @ 1,000 mls/hr IV BOLUS ONE (unknown) (no (unknown) (unknown) Source: patient (units (unknown) date) unknown) (unknown) (no (unknown) (unknown) Stated Complaint: (units (unknown) date) heart problems unknown) sent by Dr. Holder (unknown) (no (unknown) (unknown) Lvlqais-YAN-RyR (units (unknown) date) Reductase AdvReac unknown) Intermediate MUSCLE Verified 09/28/22 11:32 (unknown) (no (unknown) (unknown) Stop: 09/28/22 (units (unknown) date) 12:31 unknown) (unknown) (no (unknown) (unknown) Stop: 09/28/22 (units (unknown) date) 15:43 unknown) (unknown) (no (unknown) (unknown) Substance Use (units ( unknown) date) Type: does not use unknown) (unknown) (no (unknown) (unknown) Surgical History (units (unknown) date) (Updated 06/14/22 unknown) @ 22:24 by Sherita Carreon) (unknown) (no (unknown) (unknown) Surgical changes (units (unknown) date) and devices:? unknown) None.? (unknown) (no (unknown) (unknown) TECHNIQUE:? One (units (unknown) date) view of the chest unknown) was acquired.? (unknown) (no (unknown) (unknown) Temperature 96.7 (units (unknown) date) F L 09/28/22 11:33 unknown) (unknown) (no (unknown) (unknown) Temperature 96.7 (units (unknown) date) F L unknown) (unknown) (no (unknown) (unknown) Temperature (units (un known) date) unknown) (unknown) (no (unknown) (unknown) Time Seen by (units (u nknown) date) Provider: 09/28/22 unknown) 11:43 (unknown) (no (unknown) (unknown) Total Bilirubin (units (unknown) date) (0.2-1.3) mg/dL unknown) (unknown) (no (unknown) (unknown) Total Bilirubin (units (unknown) date) 0.5 (0.2-1.3) unknown) mg/dL (unknown) (no (unknown) (unknown) Total Creatine (units (unknown) date) Kinase 48 (30-135) unknown) U/L (unknown) (no (unknown) (unknown) Total Creatine (units (unknown) date) Kinase 51 (30-135) unknown) U/L (unknown) (no (unknown) (unknown) Total Protein (units ( unknown) date) (6.3-8.2) g/dL unknown) (unknown) (no (unknown) (unknown) Total Protein 8.9 (units (unknown) date) H (6.3-8.2) g/dL unknown) (unknown) (no (unknown) (unknown) Treatments: (units (un known) date) unknown) (unknown) (no (unknown) (unknown) Troponin + CK (units ( unknown) date) Cardiac Panel Stat unknown) (unknown) (no (unknown) (unknown) Troponin I < (units (u nknown) date) 0.012 (0.01-0.034) unknown) ng/mL (unknown) (no (unknown) (unknown) 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, 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0) X103/uL unknown) (unknown) (no (unknown) (unknown) XR chest 1V Stat (units (unknown) date) unknown) (unknown) (no (unknown) (unknown) XRay Report (units (un known) date) unknown) (unknown) (no (unknown) (unknown) [Embedded Image (units (unknown) date) Not Available] unknown) (unknown) (no (unknown) (unknown) [From FOSAMAX] (units (unknown) date) STOMACH unknown) (unknown) (no (unknown) (unknown) [DWTERLN-AAO-XAR (units (unknown) date) REDUCTASE WEIGHT unknown) LOSS (unknown) (no (unknown) (unknown) acetaminophen 500 (units (unknown) date) mg tablet 500 mg unknown) PO Q6HP PRN pain ##0 05/24/17 09/26/22 (unknown) (no (unknown) (unknown) acetaminophen (units ( unknown) date) [Tylenol Extra unknown) Strength] 500 MG tablet (unknown) (no (unknown) (unknown) alcohol intake (units (unknown) date) frequency: 0-2 unknown) drinks per day (unknown) (no (unknown) (unknown) alendronate 70 mg (units (unknown) date) tablet (Fosamax) unknown) 70 mg PO QWEEK 09/26/22 09/26/22 (unknown) (no (unknown) (unknown) alendronate (units (un known) date) [Fosamax] 70 mg unknown) tablet (unknown) (no (unknown) (unknown) alendronate (units (un known) date) sodium AdvReac unknown) Intermediate UPSET Verified 09/28/22 11:32 (unknown) (no (unknown) (unknown) and below (units (unkn own) date) unknown) (unknown) (no (unknown) (unknown) angina angina (units ( unknown) date) atypical chest unknown) pain (unknown) (no (unknown) (unknown) appear (units (unkno wn) date) unknown) (unknown) (no (unknown) (unknown) base.? 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 (unknown) (no (unknown) (unknown) considering (units (un known) date) placing her on unknown) metoprolol. No recent illness. Does have history of (unknown) (no (unknown) (unknown) dx: Pulmonary (units ( unknown) date) Fibrosis unknown) (unknown) (no (unknown) (unknown) ezetimibe [From (units (unknown) date) ZETIA] AdvReac unknown) Mild COUGHING Verified 09/28/22 11:32 (unknown) (no (unknown) (unknown) glimepiride 1 mg (units (unknown) date) tablet (Amaryl) 1 unknown) mg PO DAILY #0 tabs 09/26/22 09/26/22 (unknown) (no (unknown) (unknown) glimepiride (units (un known) date) [Amaryl] 1 mg unknown) tablet (unknown) (no (unknown) (unknown) hernia. (units (unkno wn) date) unknown) (unknown) (no (unknown) (unknown) hiatal (units (unkno wn) date) unknown) (unknown) (no (unknown) (unknown) household (units (unkn own) date) members: spouse unknown) (unknown) (no (unknown) (unknown) hydrocodone 5 (units ( unknown) date) mg-acetaminophen unknown) 325 0.5 - 1 tab PO BEDTIME PRN pain 08/24/22 (unknown) (no (unknown) (unknown) hydrocodone-aceta (units (unknown) date) minophen 5-325 mg unknown) tablet (unknown) (no (unknown) (unknown) losartan 100 mg (units (unknown) date) tablet 100 mg PO unknown) DAILY blood pressure #90 08/24/22 (unknown) (no (unknown) (unknown) losartan 100 mg (units (unknown) date) tablet unknown) (unknown) (no (unknown) (unknown) lung (units (unkno wn) date) unknown) (unknown) (no (unknown) (unknown) mg tablet #30 (units ( unknown) date) tabs unknown) (unknown) (no (unknown) (unknown) omeprazole [From (units (unknown) date) PRILOSEC] AdvReac unknown) Intermediate UPSET Verified 09/28/22 11:32 (unknown) (no (unknown) (unknown) or chills. (units (unk nown) date) unknown) (unknown) (no (unknown) (unknown) or depression (units ( unknown) date) unknown) (unknown) (no (unknown) (unknown) ordered (units (unkno wn) date) unknown) (unknown) (no (unknown) (unknown) oxygen #1 ea (units (u nknown) date) 06/17/22 unknown) (unknown) (no (unknown) (unknown) oxygen (units (unkno wn) date) concentrator #1 ea unknown) 08/18/22 (unknown) (no (unknown) (unknown) oxygen (units (unkno wn) date) concentrator. 2L unknown) by NC with activity and while sleeping (unknown) (no (unknown) (unknown) pain/tenderness (units (unknown) date) unknown) (unknown) (no (unknown) (unknown) pantoprazole 40 (units (unknown) date) mg tablet,delayed unknown) 40 mg PO DAILY Hiatal hernia--gerd 09/26/22 (unknown) (no (unknown) (unknown) pantoprazole 40 (units (unknown) date) mg tablet,delayed unknown) release (DR/EC) (unknown) (no (unknown) (unknown) plant stanol (units (u nknown) date) tim 450 mg unknown) tablet 1 tab PO QAM 05/17/18 09/26/22 (unknown) (no (unknown) (unknown) plant stanol (units (u nknown) date) tim [Cholest unknown) Off] 450 mg Tablet (unknown) (no (unknown) (unknown) pulmonary (units (unkn own) date) fibrosis. No unknown) recent illness otherwise no cough cold congestion fever (unknown) (no (unknown) (unknown) rales, or (units (unkn own) date) rhonchi. 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 (unknown) (no (unknown) (unknown) substernal (units (unk nown) date) pressure and unknown) shortness of breath since last night. Patient did have (unknown) (no (unknown) (unknown) tabs (units (unkno wn) date) unknown) (unknown) (no (unknown) (unknown) tramadol (units (unkno wn) date) [TRAMADOL] Allergy unknown) Intermediate HEART Verified 09/28/22 11:32 (unknown) (no (unknown) (unknown) unremarkable.? (units (unknown) date) unknown) Result panel 287 (unknown) (no (unknown) (unknown) (no value) (units (unk nown) date) unknown) (unknown) (no (unknown) (unknown) (Cholest Off) (units ( unknown) date) unknown) (unknown) (no (unknown) (unknown) (DME) oxygen (units (u nknown) date) concentrator unknown) (unknown) (no (unknown) (unknown) (DME) oxygen (units (u nknown) date) unknown) (unknown) (no (unknown) (unknown) (Tylenol Extra (units (unknown) date) Strength) unknown) (unknown) (no (unknown) (unknown) 0.5 - 1 tab PO (units (unknown) date) BEDTIME PRN unknown) (Reason: pain) Qty: 30 0RF (unknown) (no (unknown) (unknown) 09/26/22 (units (unkno wn) date) unknown) (unknown) (no (unknown) (unknown) 09/28/22 09/28/22 (units (unknown) date) 09/28/22 unknown) Range/Units (unknown) (no (unknown) (unknown) 09/28/22 09/28/22 (units (unknown) date) Range/Units unknown) (unknown) (no (unknown) (unknown) 09/28/22 11:50 (units (unknown) date) unknown) (unknown) (no (unknown) (unknown) 09/28/22 11:56 (units (unknown) date) unknown) (unknown) (no (unknown) (unknown) 09/28/22 12:55 (units (unknown) date) unknown) (unknown) (no (unknown) (unknown) 09/28/22 14:20 (units (unknown) date) unknown) (unknown) (no (unknown) (unknown) 09/28/22 15:13 (units (unknown) date) unknown) (unknown) (no (unknown) (unknown) 09/28/22 (units (unkno wn) date) unknown) (unknown) (no (unknown) (unknown) 1 mg PO DAILY (units ( unknown) date) Qty: 0 unknown) (unknown) (no (unknown) (unknown) 1 tab PO QAM (units (u nknown) date) unknown) (unknown) (no (unknown) (unknown) 1. 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 (unknown) (no (unknown) (unknown) 100 mg PO DAILY (units (unknown) date) Qty: 90 3RF unknown) (unknown) (no (unknown) (unknown) 11:33 09/28/22 (units (unknown) date) unknown) (unknown) (no (unknown) (unknown) 11:42 09/28/22 (units (unknown) date) unknown) (unknown) (no (unknown) (unknown) 11:50 11:50 11:50 (units (unknown) date) unknown) (unknown) (no (unknown) (unknown) [address] [place] [address] (units (unknown) date) unknown) (unknown) (no (unknown) (unknown) 12:00 (units (unkno wn) date) unknown) (unknown) (no (unknown) (unknown) 12:01 09/28/22 (units (unknown) date) unknown) (unknown) (no (unknown) (unknown) 12:30 09/28/22 (units (unknown) date) unknown) (unknown) (no (unknown) (unknown) 12:47 (units (unkno wn) date) unknown) (unknown) (no (unknown) (unknown) 12:55 14:20 (units (un known) date) unknown) (unknown) (no (unknown) (unknown) 12:58 09/28/22 (units (unknown) date) unknown) (unknown) (no (unknown) (unknown) 12:58 (units (unkno wn) date) unknown) (unknown) (no (unknown) (unknown) 136 AST 25 ALT (units (unknown) date) 21, troponin and unknown) repeat troponin less than 0.012, CBC 12.9 (unknown) (no (unknown) (unknown) 13:00 09/28/22 (units (unknown) date) unknown) (unknown) (no (unknown) (unknown) 13:00 (units (unkno wn) date) unknown) (unknown) (no (unknown) (unknown) 13:10 09/28/22 (units (unknown) date) unknown) (unknown) (no (unknown) (unknown) 13:20 09/28/22 (units (unknown) date) unknown) (unknown) (no (unknown) (unknown) 13:20 (units (unkno wn) date) unknown) (unknown) (no (unknown) (unknown) 13:30 09/28/22 (units (unknown) date) unknown) (unknown) (no (unknown) (unknown) 13:31 09/28/22 (units (unknown) date) unknown) (unknown) (no (unknown) (unknown) 13:31 (units (unkno wn) date) unknown) (unknown) (no (unknown) (unknown) 13:40 09/28/22 (units (unknown) date) unknown) (unknown) (no (unknown) (unknown) 13:40 (units (unkno wn) date) unknown) (unknown) (no (unknown) (unknown) 13:50 09/28/22 (units (unknown) date) unknown) (unknown) (no (unknown) (unknown) 14:00 (units (unkno wn) date) unknown) (unknown) (no (unknown) (unknown) 14:01 09/28/22 (units (unknown) date) unknown) (unknown) (no (unknown) (unknown) 14:10 09/28/22 (units (unknown) date) unknown) (unknown) (no (unknown) (unknown) 14:10 (units (unkno wn) date) unknown) (unknown) (no (unknown) (unknown) 14:20 09/28/22 (units (unknown) date) unknown) (unknown) (no (unknown) (unknown) 14:20 (units (unkno wn) date) unknown) (unknown) (no (unknown) (unknown) 14:30 09/28/22 (units (unknown) date) unknown) (unknown) (no (unknown) (unknown) 14:40 09/28/22 (units (unknown) date) unknown) (unknown) (no (unknown) (unknown) 14:40 (units (unkno wn) date) unknown) (unknown) (no (unknown) (unknown) 14:50 09/28/22 (units (unknown) date) unknown) (unknown) (no (unknown) (unknown) 14:50 (units (unkno wn) date) unknown) (unknown) (no (unknown) (unknown) 15:00 09/28/22 (units (unknown) date) unknown) (unknown) (no (unknown) (unknown) 15:12 (units (unkno wn) date) unknown) (unknown) (no (unknown) (unknown) 2. Development of (units (unknown) date) masslike densities unknown) in the right lung. (unknown) (no (unknown) (unknown) 2L by NC with (units ( unknown) date) activity and while unknown) sleeping room air SaO2 95% at rest,room air (unknown) (no (unknown) (unknown) 3. Large hiatal (units (unknown) date) hernia. unknown) (unknown) (no (unknown) (unknown) 40 mg PO DAILY (units (unknown) date) unknown) (unknown) (no (unknown) (unknown) 500 mg PO Q6HP (units (unknown) date) PRN (Reason: pain) unknown) Qty: 0 (unknown) (no (unknown) (unknown) 70 mg PO QWEEK (units (unknown) date) unknown) (unknown) (no (unknown) (unknown) ? (units (unkno wn) date) unknown) (unknown) (no (unknown) (unknown) ALT (<35) IU/L (units (unknown) date) unknown) (unknown) (no (unknown) (unknown) ALT 21 (<35) IU/L (units (unknown) date) unknown) (unknown) (no (unknown) (unknown) APTT (26-36) (units (u nknown) date) SECONDS unknown) (unknown) (no (unknown) (unknown) APTT 29 (26-36) (units (unknown) date) SECONDS unknown) (unknown) (no (unknown) (unknown) AST (14-36) IU/L (units (unknown) date) unknown) (unknown) (no (unknown) (unknown) AST 25 (14-36) (units (unknown) date) IU/L unknown) (unknown) (no (unknown) (unknown) Accession Number: (units (unknown) date) [id number] ?? unknown) (unknown) (no (unknown) (unknown) Acct:[id number] (units (unknown) date) unknown) (unknown) (no (unknown) (unknown) After history and (units (unknown) date) exam CBC CMP unknown) troponin x2, chest x-ray CT chest have been (unknown) (no (unknown) (unknown) Age/Sex: 86 / F (units (unknown) date) unknown) (unknown) (no (unknown) (unknown) Albumin (3.5-5.0) (units (unknown) date) g/dL unknown) (unknown) (no (unknown) (unknown) Albumin 4.4 (units (un known) date) (3.5-5.0) g/dL unknown) (unknown) (no (unknown) (unknown) Albumin/Globulin (units (unknown) date) Ratio (1.0-2.8) unknown) (unknown) (no (unknown) (unknown) Albumin/Globulin (units (unknown) date) Ratio 1.0 unknown) (1.0-2.8) (unknown) (no (unknown) (unknown) Alkaline (units (unkno wn) date) Phosphatase unknown) (38-126) U/L (unknown) (no (unknown) (unknown) Alkaline (units (unkno wn) date) Phosphatase 52 unknown) (38-126) U/L (unknown) (no (unknown) (unknown) Allergies (units (unkn own) date) unknown) (unknown) (no (unknown) (unknown) Allergy/AdvReac (units (unknown) date) Type Severity unknown) Reaction Status Date / Time (unknown) (no (unknown) (unknown) CARY Arnold (units ( unknown) date) [id number] unknown) (unknown) (no (unknown) (unknown) Anesthesia (units (unk nown) date) unknown) (unknown) (no (unknown) (unknown) Approved by: (units (u nknown) date) pérez Cisse M.D. on 09/28/2022 at 12:20 ? (unknown) (no (unknown) (unknown) Aspirin (Aspirin (units (unknown) date) 81 Mg Chew Tab) unknown) 324 mg PO NOW ONE (unknown) (no (unknown) (unknown) BACK: No flank (units (unknown) date) tenderness. unknown) (unknown) (no (unknown) (unknown) BUN (7-17) mg/dL (units (unknown) date) unknown) (unknown) (no (unknown) (unknown) BUN 17 (7-17) (units ( unknown) date) mg/dL unknown) (unknown) (no (unknown) (unknown) BUN/Creatinine (units (unknown) date) Ratio (6-22) unknown) (unknown) (no (unknown) (unknown) BUN/Creatinine (units (unknown) date) Ratio 29.8 H unknown) (6-22) (unknown) (no (unknown) (unknown) Baso # (Auto) (units ( unknown) date) (0-100) /uL unknown) (unknown) (no (unknown) (unknown) Baso # (Auto) 100 (units (unknown) date) (0-100) /uL unknown) (unknown) (no (unknown) (unknown) Baso % (Auto) (units ( unknown) date) (0-2) % unknown) (unknown) (no (unknown) (unknown) Baso % (Auto) 0.9 (units (unknown) date) (0-2) % unknown) (unknown) (no (unknown) (unknown) Bedside Urine (units ( unknown) date) Bilirubin - unknown) Negative (unknown) (no (unknown) (unknown) Bedside Urine (units ( unknown) date) Glucose Negative unknown) (unknown) (no (unknown) (unknown) Bedside Urine (units ( unknown) date) Ketone - Negative unknown) (unknown) (no (unknown) (unknown) Bedside Urine (units ( unknown) date) Leukocytes - unknown) Negative (unknown) (no (unknown) (unknown) Bedside Urine (units ( unknown) date) Nitrite - Negative unknown) (unknown) (no (unknown) (unknown) Bedside Urine (units ( unknown) date) Occult Blood - unknown) Negative (unknown) (no (unknown) (unknown) Bedside Urine (units ( unknown) date) Protein - Negative unknown) (unknown) (no (unknown) (unknown) Bedside Urine (units ( unknown) date) Urobilinogen - unknown) Negative (unknown) (no (unknown) (unknown) Bedside Urine pH (units (unknown) date) 6.0 unknown) (unknown) (no (unknown) (unknown) Benign essential (units (unknown) date) HTN unknown) (unknown) (no (unknown) (unknown) Blood Pressure (units (unknown) date) 133/70 140/73 unknown) (unknown) (no (unknown) (unknown) Blood Pressure (units (unknown) date) 136/73 145/73 H unknown) (unknown) (no (unknown) (unknown) Blood Pressure (units (unknown) date) 151/80 H unknown) (unknown) (no (unknown) (unknown) Blood Pressure (units (unknown) date) 153/100 H 164/89 H unknown) (unknown) (no (unknown) (unknown) Blood Pressure (units (unknown) date) 153/74 H unknown) (unknown) (no (unknown) (unknown) Blood Pressure (units (unknown) date) 160/81 H unknown) (unknown) (no (unknown) (unknown) Blood Pressure (units (unknown) date) 162/79 H 09/28/22 unknown) 11:33 (unknown) (no (unknown) (unknown) Blood Pressure (units (unknown) date) 162/79 H unknown) (unknown) (no (unknown) (unknown) Blood Pressure (units (unknown) date) 162/82 H unknown) (unknown) (no (unknown) (unknown) Blood Pressure (units (unknown) date) 162/83 H unknown) (unknown) (no (unknown) (unknown) Blood Pressure (units (unknown) date) 165/82 H 164/84 H unknown) (unknown) (no (unknown) (unknown) Blood Pressure (units (unknown) date) 169/91 H unknown) (unknown) (no (unknown) (unknown) Blood Pressure (units (unknown) date) 178/83 H 147/70 H unknown) (unknown) (no (unknown) (unknown) Blood Pressure (units (unknown) date) 186/84 H 153/100 H unknown) (unknown) (no (unknown) (unknown) Blood Pressure (units (unknown) date) unknown) (unknown) (no (unknown) (unknown) Bones and chest (units (unknown) date) wall:? No unknown) suspicious bony lesions.? Overlying soft tissues (unknown) (no (unknown) (unknown) CARDIOVASCULAR: (units (unknown) date) Positive chest unknown) pain, negative palpitations (unknown) (no (unknown) (unknown) CARDIOVASCULAR: (units (unknown) date) Regular rate and unknown) rhythm without murmurs (unknown) (no (unknown) (unknown) CC: Chest pain (units (unknown) date) unknown) (unknown) (no (unknown) (unknown) CK-MB (CK-2) Rel (units (unknown) date) Index TNP unknown) (unknown) (no (unknown) (unknown) CK-MB (CK-2) TNP (units (unknown) date) unknown) (unknown) (no (unknown) (unknown) COMPARISON:? (units (u nknown) date) [facility], unknown) CT, CT CHEST WO CON, 03/04/2022, 12:47. (unknown) (no (unknown) (unknown) COVID19 -Nasal (units (unknown) date) RAPID/Pre-Proc unknown) Stat (unknown) (no (unknown) (unknown) CT chest w con (units (unknown) date) Stat unknown) (unknown) (no (unknown) (unknown) Calcium (units (unkno wn) date) (8.4-10.2) mg/dL unknown) (unknown) (no (unknown) (unknown) Calcium 10.0 (units (u nknown) date) (8.4-10.2) mg/dL unknown) (unknown) (no (unknown) (unknown) Carbon Dioxide (units (unknown) date) (22-32) mmol/L unknown) (unknown) (no (unknown) (unknown) Carbon Dioxide 26 (units (unknown) date) (22-32) mmol/L unknown) (unknown) (no (unknown) (unknown) Chest pain (units (unk nown) date) unknown) (unknown) (no (unknown) (unknown) Chest x-ray: (units (u nknown) date) unknown) (unknown) (no (unknown) (unknown) Chief Complaint: (units (unknown) date) Chest Pain unknown) (unknown) (no (unknown) (unknown) Chloride (98-107) (units (unknown) date) mmol/L unknown) (unknown) (no (unknown) (unknown) Chloride 102 (units (u nknown) date) (98-107) mmol/L unknown) (unknown) (no (unknown) (unknown) Chronic back pain (units (unknown) date) unknown) (unknown) (no (unknown) (unknown) Clinical (units (unkno wn) date) Impression: unknown) (unknown) (no (unknown) (unknown) Comment:? (units (unkn own) date) Recommend CT chest unknown) with contrast for further evaluation.? (unknown) (no (unknown) (unknown) Complete Blood (units (unknown) date) Count AUTO DIFF unknown) Stat (unknown) (no (unknown) (unknown) Complicating (units (u nknown) date) co-morbidities: unknown) Hypertension pulmonary fibrosis SVT (unknown) (no (unknown) (unknown) Comprehensive (units ( unknown) date) Metabolic Panel unknown) Stat (unknown) (no (unknown) (unknown) Consultations: (units (unknown) date) 2:15 p.m.. Spoke unknown) with hospitalist, Dr. Iraheta, will admit (unknown) (no (unknown) (unknown) Course (units (unkno wn) date) unknown) (unknown) (no (unknown) (unknown) Creatinine (units (unk nown) date) (0.52-1.04) mg/dL unknown) (unknown) (no (unknown) (unknown) Creatinine 0.57 (units (unknown) date) (0.52-1.04) mg/dL unknown) (unknown) (no (unknown) (unknown) : 1935 (units (unknown) date) Acct:[id number] unknown) (unknown) (no (unknown) (unknown) : 1935 (units (unknown) date) unknown) (unknown) (no (unknown) (unknown) Data collected (units (unknown) date) from: Patient and unknown) (unknown) (no (unknown) (unknown) Date of Service: (units (unknown) date) 09/28/22 unknown) (unknown) (no (unknown) (unknown) Departure (units (unkn own) date) unknown) (unknown) (no (unknown) (unknown) Diagnosis: Chest (units (unknown) date) pain unknown) (unknown) (no (unknown) (unknown) Dictated by: (units (u nknown) date) pérez Cisse M.D. on 09/28/2022 at 12:18 ? ? (unknown) (no (unknown) (unknown) Differential (units (u nknown) date) considered: unknown) Includes but not limited to STEMI non-STEMI unstable (unknown) (no (unknown) (unknown) Discharge Plan (units (unknown) date) unknown) (unknown) (no (unknown) (unknown) Discontinued (units (u nknown) date) Medications unknown) (unknown) (no (unknown) (unknown) Discussion: (units (un known) date) Appropriate for unknown) admission. Patient will need observation for chest (unknown) (no (unknown) (unknown) Documented By: RB (units (unknown) date) unknown) (unknown) (no (unknown) (unknown) ED Orders (units (unkn own) date) unknown) (unknown) (no (unknown) (unknown) EKG-12 Lead Stat (units (unknown) date) unknown) (unknown) (no (unknown) (unknown) ENT: Mucous (units (un known) date) membranes moist. unknown) (unknown) (no (unknown) (unknown) ER Physician: (units ( unknown) date) Chad Blanco MD unknown) (unknown) (no (unknown) (unknown) EXTREMITIES: No (units (unknown) date) gross deformities. unknown) (unknown) (no (unknown) (unknown) EYES: Pupils (units (u nknown) date) equal round unknown) (unknown) (no (unknown) (unknown) Emergency Report (units (unknown) date) unknown) (unknown) (no (unknown) (unknown) Eos # (Auto) (units (u nknown) date) (0-450) /uL unknown) (unknown) (no (unknown) (unknown) Eos # (Auto) 500 (units (unknown) date) H (0-450) /uL unknown) (unknown) (no (unknown) (unknown) Eos % (Auto) (units (u nknown) date) (2-4) % unknown) (unknown) (no (unknown) (unknown) Eos % (Auto) 3.5 (units (unknown) date) (2-4) % unknown) (unknown) (no (unknown) (unknown) Esterase (units (unkno wn) date) unknown) (unknown) (no (unknown) (unknown) Estimated GFR > (units (unknown) date) 60 (>60) mL/min unknown) (unknown) (no (unknown) (unknown) Estimated GFR (units ( unknown) date) (>60) mL/min unknown) (unknown) (no (unknown) (unknown) Exam Narrative: (units (unknown) date) unknown) (unknown) (no (unknown) (unknown) Exam documented (units (unknown) date) above, pertinent unknown) findings include: No reproducible chest (unknown) (no (unknown) (unknown) Exam (units (unkno wn) date) unknown) (unknown) (no (unknown) (unknown) FINDINGS:? (units (unk nown) date) unknown) (unknown) (no (unknown) (unknown) GASTROINTESTINAL: (units (unknown) date) Abdomen soft, unknown) non-tender (unknown) (no (unknown) (unknown) GASTROINTESTINAL: (units (unknown) date) negative nausea, unknown) vomiting, abdominal pain (unknown) (no (unknown) (unknown) GENERAL: in no (units (unknown) date) distress, not unknown) toxic not dyspneic (unknown) (no (unknown) (unknown) GENERAL: negative (units (unknown) date) chills, fatigue, unknown) malaise, fever, sweats. (unknown) (no (unknown) (unknown) GERD (units (unkno wn) date) (gastroesophageal unknown) reflux disease) (unknown) (no (unknown) (unknown) : negative (units (u nknown) date) dysuria, unknown) frequency, hematuria (unknown) (no (unknown) (unknown) General (units (unkno wn) date) unknown) (unknown) (no (unknown) (unknown) Globulin (units (unkno wn) date) (1.7-4.1) g/dL unknown) (unknown) (no (unknown) (unknown) Globulin 4.5 H (units (unknown) date) (1.7-4.1) g/dL unknown) (unknown) (no (unknown) (unknown) Glucose (80-110) (units (unknown) date) mg/dL unknown) (unknown) (no (unknown) (unknown) Glucose 174 H (units ( unknown) date) (80-110) mg/dL unknown) (unknown) (no (unknown) (unknown) HEAD: (units (unkno wn) date) Normocephalic. unknown) (unknown) (no (unknown) (unknown) HEENT: negative (units (unknown) date) sinus pain, ear unknown) pain, sore throat (unknown) (no (unknown) (unknown) HPI - Chest Pain (units (unknown) date) unknown) (unknown) (no (unknown) (unknown) HPI narrative: (units (unknown) date) unknown) (unknown) (no (unknown) (unknown) Hct (36-46) % (units ( unknown) date) unknown) (unknown) (no (unknown) (unknown) Hct 36.2 (36-46) (units (unknown) date) % unknown) (unknown) (no (unknown) (unknown) Hearing loss (units (u nknown) date) unknown) (unknown) (no (unknown) (unknown) Hgb (12.0-16.0) (units (unknown) date) g/dL unknown) (unknown) (no (unknown) (unknown) Hgb 12.2 (units (unkno wn) date) (12.0-16.0) g/dL unknown) (unknown) (no (unknown) (unknown) History of (units (unk nown) date) Present Illness unknown) (unknown) (no (unknown) (unknown) History of total (units (unknown) date) hip replacement unknown) (unknown) (no (unknown) (unknown) History of (units (unk nown) date) urinary unknown) incontinence (unknown) (no (unknown) (unknown) Home Medications (units (unknown) date) unknown) (unknown) (no (unknown) (unknown) IMPRESSION:? (units (u nknown) date) unknown) (unknown) (no (unknown) (unknown) INDICATIONS:? (units ( unknown) date) chest pain unknown) (unknown) (no (unknown) (unknown) INHIBITOR] (units (unk nown) date) unknown) (unknown) (no (unknown) (unknown) INR (0.9-1.3) (units ( unknown) date) unknown) (unknown) (no (unknown) (unknown) INR 1.0 (0.9-1.3) (units (unknown) date) unknown) (unknown) (no (unknown) (unknown) Imaging Data (units (u nknown) date) unknown) (unknown) (no (unknown) (unknown) Imaging studies (units (unknown) date) independently unknown) reviewed: Chest x-ray no acute process, CT chest (unknown) (no (unknown) (unknown) Independently (units ( unknown) date) reviewed EKG as unknown) above normal sinus rhythm rate [address] elevation (unknown) (no (unknown) (unknown) Inhibitor ACHES (units (unknown) date) AND unknown) (unknown) (no (unknown) (unknown) Initial Vital (units ( unknown) date) Signs unknown) (unknown) (no (unknown) (unknown) Initial Vital (units ( unknown) date) Signs: unknown) (unknown) (no (unknown) (unknown) [facility] (units (unknown) date) [address] unknown) [place] [address] (unknown) (no (unknown) (unknown) [facility] (units (unknown) date) unknown) (unknown) (no (unknown) (unknown) Lab Data (units (unkno wn) date) unknown) (unknown) (no (unknown) (unknown) Lab Results (units (un known) date) unknown) (unknown) (no (unknown) (unknown) Lab Test results (units (unknown) date) independently unknown) reviewed as above. Pertinent findings: Sodium (unknown) (no (unknown) (unknown) Labs: (units (unkno wn) date) unknown) (unknown) (no (unknown) (unknown) Last Admin: (units (un known) date) 09/28/22 12:46 unknown) Dose: 324 mg (unknown) (no (unknown) (unknown) Last Admin: (units (un known) date) 09/28/22 12:47 unknown) Dose: 0.5 inch (unknown) (no (unknown) (unknown) Last Admin: (units (un known) date) 09/28/22 15:33 unknown) Dose: 1,000 mls/hr (unknown) (no (unknown) (unknown) Limitations: no (units (unknown) date) limitations unknown) (unknown) (no (unknown) (unknown) Lipase (23-300) (units (unknown) date) U/L unknown) (unknown) (no (unknown) (unknown) Lipase 52 (units (unkn own) date) (23-300) U/L unknown) (unknown) (no (unknown) (unknown) Lipase Stat (units (un known) date) unknown) (unknown) (no (unknown) (unknown) Loc: ED (units (unkno wn) date) unknown) (unknown) (no (unknown) (unknown) Lungs and (units (unkn own) date) pleura:? unknown) Development of nodular densities in the right apex and right (unknown) (no (unknown) (unknown) Lymph # (Auto) (units (unknown) date) (9716-5018) /uL unknown) (unknown) (no (unknown) (unknown) Lymph # (Auto) (units (unknown) date) 2000 (2044-1279) unknown) /uL (unknown) (no (unknown) (unknown) Lymph % (Auto) (units (unknown) date) (25-40) % unknown) (unknown) (no (unknown) (unknown) Lymph % (Auto) (units (unknown) date) 15.3 L (25-40) % unknown) (unknown) (no (unknown) (unknown) [id number] (units (unk nown) date) unknown) (unknown) (no (unknown) (unknown) MCH (26-34) PG (units (unknown) date) unknown) (unknown) (no (unknown) (unknown) MCH 31.2 (26-34) (units (unknown) date) PG unknown) (unknown) (no (unknown) (unknown) MCHC (30-36) % (units (unknown) date) unknown) (unknown) (no (unknown) (unknown) MCHC 33.7 (30-36) (units (unknown) date) % unknown) (unknown) (no (unknown) (unknown) MCV (80-100) fL (units (unknown) date) unknown) (unknown) (no (unknown) (unknown) MCV 92.5 (80-100) (units (unknown) date) fL unknown) (unknown) (no (unknown) (unknown) MDM - Chest Pain (units (unknown) date) unknown) (unknown) (no (unknown) (unknown) MDM Narrative (units ( unknown) date) unknown) (unknown) (no (unknown) (unknown) MDM (units (unkno wn) date) unknown) (unknown) (no (unknown) (unknown) MR#: [id number] (units (unknown) date) unknown) (unknown) (no (unknown) (unknown) MUSCULOSKELETAL: (units (unknown) date) negative muscle or unknown) bony pain (unknown) (no (unknown) (unknown) Magnesium (units (unkn own) date) (1.6-2.3) mg/dL unknown) (unknown) (no (unknown) (unknown) Magnesium 1.7 (units ( unknown) date) (1.6-2.3) mg/dL unknown) (unknown) (no (unknown) (unknown) Magnesium Stat (units (unknown) date) unknown) (unknown) (no (unknown) (unknown) Mediastinum:? (units ( unknown) date) Mediastinal unknown) contours appear normal.? Heart size is normal.? Large (unknown) (no (unknown) (unknown) Medical History (units (unknown) date) (Updated 09/28/22 unknown) @ 15:50 by Chad Blanco MD) (unknown) (no (unknown) (unknown) Medical decision (units (unknown) date) making narrative: unknown) (unknown) (no (unknown) (unknown) Medical records (units (unknown) date) reviewed: Records unknown) from primary care office visit (unknown) (no (unknown) (unknown) Medication (units (unk nown) date) Instructions unknown) Recorded Confirmed (unknown) (no (unknown) (unknown) Medication (units (unk nown) date) Instructions unknown) Recorded (unknown) (no (unknown) (unknown) Mode of arrival: (units (unknown) date) Wheelchair unknown) (unknown) (no (unknown) (unknown) [place] # (Auto) (units ( unknown) date) (0-900) /uL unknown) (unknown) (no (unknown) (unknown) [place] # (Auto) (units ( unknown) date) 1000 H (0-900) /uL unknown) (unknown) (no (unknown) (unknown) [place] % (Auto) (units ( unknown) date) (3-14) % unknown) (unknown) (no (unknown) (unknown) [place] % (Auto) 7.8 (units (unknown) date) (3-14) % unknown) (unknown) (no (unknown) (unknown) NECK: Trachea (units ( unknown) date) midline. unknown) (unknown) (no (unknown) (unknown) NEURO: AOx4. (units (u nknown) date) unknown) (unknown) (no (unknown) (unknown) NEUROLOGIC: (units (un known) date) negative weakness, unknown) numbness (unknown) (no (unknown) (unknown) Narrative (units (unkn own) date) unknown) (unknown) (no (unknown) (unknown) Narrative: (units (unk nown) date) unknown) (unknown) (no (unknown) (unknown) Neut # (Auto) (units ( unknown) date) (3682-9645) /uL unknown) (unknown) (no (unknown) (unknown) Neut # (Auto) (units ( unknown) date) 9400 H (1277-3673) unknown) /uL (unknown) (no (unknown) (unknown) Neut % (Auto) (units ( unknown) date) (50-75) % unknown) (unknown) (no (unknown) (unknown) Neut % (Auto) (units ( unknown) date) 72.5 (50-75) % unknown) (unknown) (no (unknown) (unknown) Nitroglycerin (units ( unknown) date) (Nitroglycerin unknown) Oint 1 Inch/Gm Oint...G.) 0.5 inch TOP NOW ONE (unknown) (no (unknown) (unknown) No Action (units (unkn own) date) unknown) (unknown) (no (unknown) (unknown) Ordered: (units (unkno wn) date) unknown) (unknown) (no (unknown) (unknown) Ordering (units (unkno wn) date) Provider: unknown) Chad Blanco MD (unknown) (no (unknown) (unknown) Orders (units (unkno wn) date) unknown) (unknown) (no (unknown) (unknown) Osteoarthritis (units (unknown) date) unknown) (unknown) (no (unknown) (unknown) Osteoporosis (units (u nknown) date) unknown) (unknown) (no (unknown) (unknown) Oxygen Delivery (units (unknown) date) Method 09/28/22 unknown) 11:33 (unknown) (no (unknown) (unknown) Oxygen Delivery (units (unknown) date) Method Room Air unknown) (unknown) (no (unknown) (unknown) Oxygen Delivery (units (unknown) date) Method unknown) (unknown) (no (unknown) (unknown) PROCEDURE:? XR (units (unknown) date) CHEST 1V unknown) (unknown) (no (unknown) (unknown) PSYCH: Not (units (unk nown) date) anxious, is unknown) cooperative (unknown) (no (unknown) (unknown) PT (10.1-12.7) (units (unknown) date) SECONDS unknown) (unknown) (no (unknown) (unknown) PT 11.4 (units (unkno wn) date) (10.1-12.7) unknown) SECONDS (unknown) (no (unknown) (unknown) Partial (units (unkno wn) date) Thromboplastin unknown) Time Stat (unknown) (no (unknown) (unknown) Patient (units (unkno wn) date) Disposition: unknown) Admitted as Observation (unknown) (no (unknown) (unknown) Patient History (units (unknown) date) unknown) (unknown) (no (unknown) (unknown) Patient does have (units (unknown) date) history SVT in had unknown) recent Holter monitor. Primary care is (unknown) (no (unknown) (unknown) Patient here for (units (unknown) date) nonreproducible unknown) chest pain. at bedside. Complains of (unknown) (no (unknown) (unknown) Patient: (units (unkno wn) date) Rosita Devi Chad unknown) MR#: (unknown) (no (unknown) (unknown) Patient: (units (unkno wn) date) Rosita Devi L unknown) (unknown) (no (unknown) (unknown) Plt Count (units (unkn own) date) (150-400) X103/uL unknown) (unknown) (no (unknown) (unknown) Plt Count 257 (units ( unknown) date) (150-400) X103/uL unknown) (unknown) (no (unknown) (unknown) Potassium (units (unkn own) date) (3.4-5.1) mmol/L unknown) (unknown) (no (unknown) (unknown) Potassium 4.1 (units ( unknown) date) (3.4-5.1) mmol/L unknown) (unknown) (no (unknown) (unknown) Prescriptions: (units (unknown) date) unknown) (unknown) (no (unknown) (unknown) Previous Rx's (units ( unknown) date) unknown) (unknown) (no (unknown) (unknown) Procedure: XR (units ( unknown) date) chest 1V unknown) (unknown) (no (unknown) (unknown) Prothrombin Time (units (unknown) date) INR Stat unknown) (unknown) (no (unknown) (unknown) Pulmonary (units (unkn own) date) fibrosis unknown) (unknown) (no (unknown) (unknown) Pulse Oximetry (units (unknown) date) 100 100 unknown) (unknown) (no (unknown) (unknown) Pulse Oximetry (units (unknown) date) 100 unknown) (unknown) (no (unknown) (unknown) Pulse Oximetry 97 (units (unknown) date) 09/28/22 11:33 unknown) (unknown) (no (unknown) (unknown) Pulse Oximetry 97 (units (unknown) date) 100 100 unknown) (unknown) (no (unknown) (unknown) Pulse Rate 76 81 (units (unknown) date) unknown) (unknown) (no (unknown) (unknown) Pulse Rate 76 (units ( unknown) date) unknown) (unknown) (no (unknown) (unknown) Pulse Rate 78 81 (units (unknown) date) unknown) (unknown) (no (unknown) (unknown) Pulse Rate 80 87 (units (unknown) date) unknown) (unknown) (no (unknown) (unknown) Pulse Rate 81 87 (units (unknown) date) unknown) (unknown) (no (unknown) (unknown) Pulse Rate 81 (units ( unknown) date) unknown) (unknown) (no (unknown) (unknown) Pulse Rate 82 87 (units (unknown) date) unknown) (unknown) (no (unknown) (unknown) Pulse Rate 82 (units ( unknown) date) unknown) (unknown) (no (unknown) (unknown) Pulse Rate 85 (units ( unknown) date) unknown) (unknown) (no (unknown) (unknown) Pulse Rate 86 84 (units (unknown) date) unknown) (unknown) (no (unknown) (unknown) Pulse Rate 86 (units ( unknown) date) unknown) (unknown) (no (unknown) (unknown) Pulse Rate 88 85 (units (unknown) date) unknown) (unknown) (no (unknown) (unknown) Pulse Rate 94 H (units (unknown) date) 09/28/22 11:33 unknown) (unknown) (no (unknown) (unknown) Pulse Rate 94 H (units (unknown) date) 89 89 unknown) (unknown) (no (unknown) (unknown) RACING (units (unkno wn) date) unknown) (unknown) (no (unknown) (unknown) RBC (4.0-5.2) (units ( unknown) date) X106/uL unknown) (unknown) (no (unknown) (unknown) RBC 3.91 L (units (unk nown) date) (4.0-5.2) X106/uL unknown) (unknown) (no (unknown) (unknown) RDW (11.6-14.8) % (units (unknown) date) unknown) (unknown) (no (unknown) (unknown) RDW 14.7 (units (unkno wn) date) (11.6-14.8) % unknown) (unknown) (no (unknown) (unknown) RESPIRATORY: Clear (units (unknown) date) to auscultation. unknown) Breath sounds equal bilaterally. No wheezes, (unknown) (no (unknown) (unknown) RESPIRATORY: (units (u nknown) date) Positive dyspnea, unknown) negative cough (unknown) (no (unknown) (unknown) ROS Unobtainable: (units (unknown) date) All systems unknown) reviewed + are unremarkable except as noted in HPI (unknown) (no (unknown) (unknown) Radiologist's (units ( unknown) date) Impression: unknown) (unknown) (no (unknown) (unknown) Re-evaluations: (units (unknown) date) 3:48 p.m.. Patient unknown) chest pain-free after nitro paste. I did (unknown) (no (unknown) (unknown) Referrals: (units (unk nown) date) unknown) (unknown) (no (unknown) (unknown) Related Data (units (u nknown) date) unknown) (unknown) (no (unknown) (unknown) Respiratory Rate (units (unknown) date) 18 09/28/22 11:33 unknown) (unknown) (no (unknown) (unknown) Respiratory Rate (units (unknown) date) 18 15 29 H unknown) (unknown) (no (unknown) (unknown) Respiratory Rate (units (unknown) date) 21 unknown) (unknown) (no (unknown) (unknown) Respiratory Rate (units (unknown) date) 24 unknown) (unknown) (no (unknown) (unknown) Respiratory Rate (units (unknown) date) 33 H unknown) (unknown) (no (unknown) (unknown) Respiratory Rate (units (unknown) date) unknown) (unknown) (no (unknown) (unknown) Review of Systems (units (unknown) date) unknown) (unknown) (no (unknown) (unknown) Rx Instructions: (units (unknown) date) unknown) (unknown) (no (unknown) (unknown) SARS-CoV-2 (PCR) (units (unknown) date) (Negative) unknown) (unknown) (no (unknown) (unknown) SARS-CoV-2 (PCR) (units (unknown) date) Negative unknown) (Negative) (unknown) (no (unknown) (unknown) SKIN: Warm and (units (unknown) date) dry unknown) (unknown) (no (unknown) (unknown) SKIN: negative (units (unknown) date) rash, skin lesions unknown) (unknown) (no (unknown) (unknown) STOMACH (units (unkno wn) date) unknown) (unknown) (no (unknown) (unknown) SVT (units (unkno wn) date) (supraventricular unknown) tachycardia) (unknown) (no (unknown) (unknown) SaO2 85%,while (units (unknown) date) walking SaO2 95% unknown) with 2L for pulmonary fibrosis (unknown) (no (unknown) (unknown) SaO2 w/ 2L O2 95% (units (unknown) date) unknown) (unknown) (no (unknown) (unknown) Irma Holder DO (units (unknown) date) [Primary Care unknown) Provider] (unknown) (no (unknown) (unknown) See Rx (units (unkno wn) date) Instructions unknown) .Route .MEDSUPPLY Qty: 1 0RF (unknown) (no (unknown) (unknown) Shoulder pain (units ( unknown) date) unknown) (unknown) (no (unknown) (unknown) Signed By: (units (unk nown) date) unknown) (unknown) (no (unknown) (unknown) Signed (units (unkno wn) date) unknown) (unknown) (no (unknown) (unknown) Sleep apnea (units (un known) date) unknown) (unknown) (no (unknown) (unknown) Smoking Status: (units (unknown) date) Former smoker unknown) (unknown) (no (unknown) (unknown) Social History (units (unknown) date) unknown) (unknown) (no (unknown) (unknown) Sodium (137-145) (units (unknown) date) mmol/L unknown) (unknown) (no (unknown) (unknown) Sodium 136 L (units (u nknown) date) (137-145) mmol/L unknown) (unknown) (no (unknown) (unknown) Sodium Chloride (units (unknown) date) (Normal Saline unknown) 0.9%) 500 mls @ 1,000 mls/hr IV BOLUS ONE (unknown) (no (unknown) (unknown) Source: patient (units (unknown) date) unknown) (unknown) (no (unknown) (unknown) Stated Complaint: (units (unknown) date) heart problems unknown) sent by Dr. Holder (unknown) (no (unknown) (unknown) [id number] (units (unknown) date) Reductase AdvReac unknown) Intermediate MUSCLE Verified 09/28/22 11:32 (unknown) (no (unknown) (unknown) Stop: 09/28/22 (units (unknown) date) 12:31 unknown) (unknown) (no (unknown) (unknown) Stop: 09/28/22 (units (unknown) date) 15:43 unknown) (unknown) (no (unknown) (unknown) Substance Use (units ( unknown) date) Type: does not use unknown) (unknown) (no (unknown) (unknown) Surgical History (units (unknown) date) (Updated 06/14/22 unknown) @ 22:24 by Sherita Carreon) (unknown) (no (unknown) (unknown) Surgical changes (units (unknown) date) and devices:? unknown) None.? (unknown) (no (unknown) (unknown) TECHNIQUE:? One (units (unknown) date) view of the chest unknown) was acquired.? (unknown) (no (unknown) (unknown) Temperature 96.7 (units (unknown) date) F L 09/28/22 11:33 unknown) (unknown) (no (unknown) (unknown) Temperature 96.7 (units (unknown) date) F L unknown) (unknown) (no (unknown) (unknown) Temperature (units (un known) date) unknown) (unknown) (no (unknown) (unknown) Time Seen by (units (u nknown) date) Provider: 09/28/22 unknown) 11:43 (unknown) (no (unknown) (unknown) Total Bilirubin (units (unknown) date) (0.2-1.3) mg/dL unknown) (unknown) (no (unknown) (unknown) Total Bilirubin (units (unknown) date) 0.5 (0.2-1.3) unknown) mg/dL (unknown) (no (unknown) (unknown) Total Creatine (units (unknown) date) Kinase 48 (30-135) unknown) U/L (unknown) (no (unknown) (unknown) Total Creatine (units (unknown) date) Kinase 51 (30-135) unknown) U/L (unknown) (no (unknown) (unknown) Total Protein (units ( unknown) date) (6.3-8.2) g/dL unknown) (unknown) (no (unknown) (unknown) Total Protein 8.9 (units (unknown) date) H (6.3-8.2) g/dL unknown) (unknown) (no (unknown) (unknown) Treatments: (units (un known) date) Aspirin/nitro unknown) paste/normal saline (unknown) (no (unknown) (unknown) Troponin + CK (units ( unknown) date) Cardiac Panel Stat unknown) (unknown) (no (unknown) (unknown) Troponin I < (units (u nknown) date) 0.012 (0.01-0.034) unknown) ng/mL (unknown) (no (unknown) (unknown) 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, 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0) X103/uL unknown) (unknown) (no (unknown) (unknown) XR chest 1V Stat (units (unknown) date) unknown) (unknown) (no (unknown) (unknown) XRay Report (units (un known) date) unknown) (unknown) (no (unknown) (unknown) [Embedded Image (units (unknown) date) Not Available] unknown) (unknown) (no (unknown) (unknown) [From FOSAMAX] (units (unknown) date) STOMACH unknown) (unknown) (no (unknown) (unknown) [[id number] (units (unknown) date) REDUCTASE WEIGHT unknown) LOSS (unknown) (no (unknown) (unknown) acetaminophen 500 (units (unknown) date) mg tablet 500 mg unknown) PO Q6HP PRN pain ##0 05/24/17 09/26/22 (unknown) (no (unknown) (unknown) acetaminophen (units ( unknown) date) [Tylenol Extra unknown) Strength] 500 MG tablet (unknown) (no (unknown) (unknown) alcohol intake (units (unknown) date) frequency: 0-2 unknown) drinks per day (unknown) (no (unknown) (unknown) alendronate 70 mg (units (unknown) date) tablet (Fosamax) unknown) 70 mg PO QWEEK 09/26/22 09/26/22 (unknown) (no (unknown) (unknown) alendronate (units (un known) date) [Fosamax] 70 mg unknown) tablet (unknown) (no (unknown) (unknown) alendronate (units (un known) date) sodium AdvReac unknown) Intermediate UPSET Verified 09/28/22 11:32 (unknown) (no (unknown) (unknown) and below (units (unkn own) date) unknown) (unknown) (no (unknown) (unknown) angina angina (units ( unknown) date) atypical chest unknown) pain (unknown) (no (unknown) (unknown) appear (units (unkno wn) date) unknown) (unknown) (no (unknown) (unknown) base.? 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 (unknown) (no (unknown) (unknown) chest (units (unkno wn) date) pain/echocardiogra unknown) m/stress test (unknown) (no (unknown) (unknown) considering (units (un known) date) placing her on unknown) metoprolol. No recent illness. Does have history of (unknown) (no (unknown) (unknown) dx: Pulmonary (units ( unknown) date) Fibrosis unknown) (unknown) (no (unknown) (unknown) ezetimibe [From (units (unknown) date) ZETIA] AdvReac unknown) Mild COUGHING Verified 09/28/22 11:32 (unknown) (no (unknown) (unknown) for admit. (units (unk nown) date) unknown) (unknown) (no (unknown) (unknown) glimepiride 1 mg (units (unknown) date) tablet (Amaryl) 1 unknown) mg PO DAILY #0 tabs 09/26/22 09/26/22 (unknown) (no (unknown) (unknown) glimepiride (units (un known) date) [Amaryl] 1 mg unknown) tablet (unknown) (no (unknown) (unknown) hemoglobin 12.2 (units (unknown) date) hematocrit 36.2 unknown) (unknown) (no (unknown) (unknown) hernia. (units (unkno wn) date) unknown) (unknown) (no (unknown) (unknown) hiatal (units (unkno wn) date) unknown) (unknown) (no (unknown) (unknown) household (units (unkn own) date) members: spouse unknown) (unknown) (no (unknown) (unknown) hydrocodone 5 (units ( unknown) date) mg-acetaminophen unknown) 325 0.5 - 1 tab PO BEDTIME PRN pain 08/24/22 (unknown) (no (unknown) (unknown) hydrocodone-aceta (units (unknown) date) minophen 5-325 mg unknown) tablet (unknown) (no (unknown) (unknown) losartan 100 mg (units (unknown) date) tablet 100 mg PO unknown) DAILY blood pressure #90 08/24/22 (unknown) (no (unknown) (unknown) losartan 100 mg (units (unknown) date) tablet unknown) (unknown) (no (unknown) (unknown) lung (units (unkno wn) date) unknown) (unknown) (no (unknown) (unknown) mg tablet #30 (units ( unknown) date) tabs unknown) (unknown) (no (unknown) (unknown) omeprazole [From (units (unknown) date) PRILOSEC] AdvReac unknown) Intermediate UPSET Verified 09/28/22 11:32 (unknown) (no (unknown) (unknown) or chills. (units (unk nown) date) unknown) (unknown) (no (unknown) (unknown) or depression (units ( unknown) date) unknown) (unknown) (no (unknown) (unknown) ordered (units (unkno wn) date) unknown) (unknown) (no (unknown) (unknown) oxygen #1 ea (units (u nknown) date) 06/17/22 unknown) (unknown) (no (unknown) (unknown) oxygen (units (unkno wn) date) concentrator #1 ea unknown) 08/18/22 (unknown) (no (unknown) (unknown) oxygen (units (unkno wn) date) concentrator. 2L unknown) by NC with activity and while sleeping (unknown) (no (unknown) (unknown) pain relieved (units ( unknown) date) with nitro. Will unknown) need echocardiogram and stress test. Reviewed (unknown) (no (unknown) (unknown) pain/tenderness (units (unknown) date) unknown) (unknown) (no (unknown) (unknown) pantoprazole 40 (units (unknown) date) mg tablet,delayed unknown) 40 mg PO DAILY Hiatal hernia--gerd 09/26/22 (unknown) (no (unknown) (unknown) pantoprazole 40 (units (unknown) date) mg tablet,delayed unknown) release (DR/EC) (unknown) (no (unknown) (unknown) patient repeating (units (unknown) date) repeat troponin unknown) and CT scan imaging. (unknown) (no (unknown) (unknown) plant stanol (units (u nknown) date) tim 450 mg unknown) tablet 1 tab PO QAM 05/17/18 09/26/22 (unknown) (no (unknown) (unknown) plant stanol (units (u nknown) date) tim [Cholest unknown) Off] 450 mg Tablet (unknown) (no (unknown) (unknown) pulmonary (units (unkn own) date) fibrosis. No unknown) recent illness otherwise no cough cold congestion fever (unknown) (no (unknown) (unknown) rales, or (units (unkn own) date) rhonchi. unknown) (unknown) (no (unknown) (unknown) release (units (unkno wn) date) unknown) (unknown) (no (unknown) (unknown) review results (units (unknown) date) with patient and unknown) . 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 (unknown) (no (unknown) (unknown) substernal (units (unk nown) date) pressure and unknown) shortness of breath since last night. Patient did have (unknown) (no (unknown) (unknown) tabs (units (unkno wn) date) unknown) (unknown) (no (unknown) (unknown) tramadol (units (unkno wn) date) [TRAMADOL] Allergy unknown) Intermediate HEART Verified 09/28/22 11:32 (unknown) (no (unknown) (unknown) unremarkable.? (units (unknown) date) unknown) (unknown) (no (unknown) (unknown) with patient and (units (unknown) date) agree for unknown) admit. Reviewed with hospitalist and agrees Result panel 288 (unknown) (no (unknown) (unknown) (no value) (units (unk nown) date) unknown) (unknown) (no (unknown) (unknown) (Cholest Off) (units ( unknown) date) unknown) (unknown) (no (unknown) (unknown) (Tylenol Extra (units (unknown) date) Strength) unknown) (unknown) (no (unknown) (unknown) 09/26/22 (units (unkno wn) date) unknown) (unknown) (no (unknown) (unknown) 09/28/22 09/28/22 (units (unknown) date) 09/28/22 unknown) Range/Units (unknown) (no (unknown) (unknown) 09/28/22 09/28/22 (units (unknown) date) Range/Units unknown) (unknown) (no (unknown) (unknown) 09/28/22 11:50 (units (unknown) date) unknown) (unknown) (no (unknown) (unknown) 09/28/22 11:56 (units (unknown) date) unknown) (unknown) (no (unknown) (unknown) 09/28/22 12:55 (units (unknown) date) unknown) (unknown) (no (unknown) (unknown) 09/28/22 14:20 (units (unknown) date) unknown) (unknown) (no (unknown) (unknown) 09/28/22 15:13 (units (unknown) date) unknown) (unknown) (no (unknown) (unknown) 09/28/22 (units (unkno wn) date) unknown) (unknown) (no (unknown) (unknown) 03/02/2022.? (units (u nknown) date) Pulmonary fibrosis unknown) or interstitial pneumonitis considered.? (unknown) (no (unknown) (unknown) 1. 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 (unknown) (no (unknown) (unknown) 1. Peripheral (units ( unknown) date) chronic unknown) interstitial changes have a reticular pattern are stable (unknown) (no (unknown) (unknown) 11:33 09/28/22 (units (unknown) date) unknown) (unknown) (no (unknown) (unknown) 11:42 09/28/22 (units (unknown) date) unknown) (unknown) (no (unknown) (unknown) 11:50 11:50 11:50 (units (unknown) date) unknown) (unknown) (no (unknown) (unknown) [facility] [facility] (units (unknown) date) unknown) (unknown) (no (unknown) (unknown) 12:00 (units (unkno wn) date) unknown) (unknown) (no (unknown) (unknown) 12:01 09/28/22 (units (unknown) date) unknown) (unknown) (no (unknown) (unknown) 12:30 09/28/22 (units (unknown) date) unknown) (unknown) (no (unknown) (unknown) 12:47 (units (unkno wn) date) unknown) (unknown) (no (unknown) (unknown) 12:55 14:20 (units (un known) date) unknown) (unknown) (no (unknown) (unknown) 12:58 09/28/22 (units (unknown) date) unknown) (unknown) (no (unknown) (unknown) 12:58 (units (unkno wn) date) unknown) (unknown) (no (unknown) (unknown) 136 AST 25 ALT 21, (units (unknown) date) troponin and unknown) repeat troponin less than 0.012, CBC 12.9 hemogl (unknown) (no (unknown) (unknown) 13:00 09/28/22 (units (unknown) date) unknown) (unknown) (no (unknown) (unknown) 13:00 (units (unkno wn) date) unknown) (unknown) (no (unknown) (unknown) 13:10 09/28/22 (units (unknown) date) unknown) (unknown) (no (unknown) (unknown) 13:20 09/28/22 (units (unknown) date) unknown) (unknown) (no (unknown) (unknown) 13:20 (units (unkno wn) date) unknown) (unknown) (no (unknown) (unknown) 13:30 09/28/22 (units (unknown) date) unknown) (unknown) (no (unknown) (unknown) 13:31 09/28/22 (units (unknown) date) unknown) (unknown) (no (unknown) (unknown) 13:31 (units (unkno wn) date) unknown) (unknown) (no (unknown) (unknown) 13:40 09/28/22 (units (unknown) date) unknown) (unknown) (no (unknown) (unknown) 13:40 (units (unkno wn) date) unknown) (unknown) (no (unknown) (unknown) 13:50 09/28/22 (units (unknown) date) unknown) (unknown) (no (unknown) (unknown) 14:00 (units (unkno wn) date) unknown) (unknown) (no (unknown) (unknown) 14:01 09/28/22 (units (unknown) date) unknown) (unknown) (no (unknown) (unknown) 14:10 09/28/22 (units (unknown) date) unknown) (unknown) (no (unknown) (unknown) 14:10 (units (unkno wn) date) unknown) (unknown) (no (unknown) (unknown) 14:20 09/28/22 (units (unknown) date) unknown) (unknown) (no (unknown) (unknown) 14:20 (units (unkno wn) date) unknown) (unknown) (no (unknown) (unknown) 14:30 09/28/22 (units (unknown) date) unknown) (unknown) (no (unknown) (unknown) 14:40 09/28/22 (units (unknown) date) unknown) (unknown) (no (unknown) (unknown) 14:40 (units (unkno wn) date) unknown) (unknown) (no (unknown) (unknown) 14:50 09/28/22 (units (unknown) date) unknown) (unknown) (no (unknown) (unknown) 14:50 (units (unkno wn) date) unknown) (unknown) (no (unknown) (unknown) 15:00 09/28/22 (units (unknown) date) unknown) (unknown) (no (unknown) (unknown) 15:12 (units (unkno wn) date) unknown) (unknown) (no (unknown) (unknown) 2. Development of (units (unknown) date) masslike densities unknown) in the right lung. (unknown) (no (unknown) (unknown) 2. Large hiatal (units (unknown) date) hernia, stable? unknown) (unknown) (no (unknown) (unknown) 3. Large hiatal (units (unknown) date) hernia. unknown) (unknown) (no (unknown) (unknown) ? (units (unkno wn) date) unknown) (unknown) (no (unknown) (unknown) ALT (<35) IU/L (units (unknown) date) unknown) (unknown) (no (unknown) (unknown) ALT 21 (<35) IU/L (units (unknown) date) unknown) (unknown) (no (unknown) (unknown) APTT (26-36) (units (u nknown) date) SECONDS unknown) (unknown) (no (unknown) (unknown) APTT 29 (26-36) (units (unknown) date) SECONDS unknown) (unknown) (no (unknown) (unknown) AST (14-36) IU/L (units (unknown) date) unknown) (unknown) (no (unknown) (unknown) AST 25 (14-36) (units (unknown) date) IU/L unknown) (unknown) (no (unknown) (unknown) Abdomen:? (units (unkn own) date) Visualized upper unknown) abdominal solid organs appear normal.? Upper (unknown) (no (unknown) (unknown) Accession Number: (units (unknown) date) [id number] ?? unknown) (unknown) (no (unknown) (unknown) Accession Number: (units (unknown) date) [id number] ?? unknown) (unknown) (no (unknown) (unknown) Acct:[id number] (units (unknown) date) unknown) (unknown) (no (unknown) (unknown) Admin: 09/28/22 (units (unknown) date) 15:33 Dose: 1,000 unknown) mls/hr (unknown) (no (unknown) (unknown) After history and (units (unknown) date) exam CBC CMP unknown) troponin x2, chest x-ray CT chest have been (unknown) (no (unknown) (unknown) After the (units (unkn own) date) administration of unknown) intravenous contrast, 5 mm thick sections acquired (unknown) (no (unknown) (unknown) Age/Sex: 86 / F (units (unknown) date) unknown) (unknown) (no (unknown) (unknown) Albumin (3.5-5.0) (units (unknown) date) g/dL unknown) (unknown) (no (unknown) (unknown) Albumin 4.4 (units (un known) date) (3.5-5.0) g/dL unknown) (unknown) (no (unknown) (unknown) Albumin/Globulin (units (unknown) date) Ratio (1.0-2.8) unknown) (unknown) (no (unknown) (unknown) Albumin/Globulin (units (unknown) date) Ratio 1.0 unknown) (1.0-2.8) (unknown) (no (unknown) (unknown) Alkaline (units (unkno wn) date) Phosphatase unknown) (38-126) U/L (unknown) (no (unknown) (unknown) Alkaline (units (unkno wn) date) Phosphatase 52 unknown) (38-126) U/L (unknown) (no (unknown) (unknown) Allergies (units (unkn own) date) unknown) (unknown) (no (unknown) (unknown) Allergy/AdvReac (units (unknown) date) Type Severity unknown) Reaction Status Date / Time (unknown) (no (unknown) (unknown) [place], [place] (units ( unknown) date) [id number] unknown) (unknown) (no (unknown) (unknown) Anesthesia (units (unk nown) date) unknown) (unknown) (no (unknown) (unknown) Approved by: Fernando (units (unknown) date) Jagdeep Rivas on unknown) 09/28/2022 at 15:07? (unknown) (no (unknown) (unknown) Approved by: (units (u nknown) date) pérez Cisse M.D. on 09/28/2022 at 12:20 ? (unknown) (no (unknown) (unknown) Aspirin (Aspirin (units (unknown) date) 81 Mg Chew Tab) unknown) 324 mg PO NOW ONE (unknown) (no (unknown) (unknown) BACK: No flank (units (unknown) date) tenderness. unknown) (unknown) (no (unknown) (unknown) BUN (7-17) mg/dL (units (unknown) date) unknown) (unknown) (no (unknown) (unknown) BUN 17 (7-17) (units ( unknown) date) mg/dL unknown) (unknown) (no (unknown) (unknown) BUN/Creatinine (units (unknown) date) Ratio (6-22) unknown) (unknown) (no (unknown) (unknown) BUN/Creatinine (units (unknown) date) Ratio 29.8 H unknown) (6-22) (unknown) (no (unknown) (unknown) Baso # (Auto) (units ( unknown) date) (0-100) /uL unknown) (unknown) (no (unknown) (unknown) Baso # (Auto) 100 (units (unknown) date) (0-100) /uL unknown) (unknown) (no (unknown) (unknown) Baso % (Auto) (units ( unknown) date) (0-2) % unknown) (unknown) (no (unknown) (unknown) Baso % (Auto) 0.9 (units (unknown) date) (0-2) % unknown) (unknown) (no (unknown) (unknown) Bedside Urine (units ( unknown) date) Bilirubin - unknown) Negative (unknown) (no (unknown) (unknown) Bedside Urine (units ( unknown) date) Glucose Negative unknown) (unknown) (no (unknown) (unknown) Bedside Urine (units ( unknown) date) Ketone - Negative unknown) (unknown) (no (unknown) (unknown) Bedside Urine (units ( unknown) date) Leukocytes - unknown) Negative (unknown) (no (unknown) (unknown) Bedside Urine (units ( unknown) date) Nitrite - Negative unknown) (unknown) (no (unknown) (unknown) Bedside Urine (units ( unknown) date) Occult Blood - unknown) Negative (unknown) (no (unknown) (unknown) Bedside Urine (units ( unknown) date) Protein - Negative unknown) (unknown) (no (unknown) (unknown) Bedside Urine (units ( unknown) date) Urobilinogen - unknown) Negative (unknown) (no (unknown) (unknown) Bedside Urine pH (units (unknown) date) 6.0 unknown) (unknown) (no (unknown) (unknown) Benign essential (units (unknown) date) HTN unknown) (unknown) (no (unknown) (unknown) 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 (unknown) (no (unknown) (unknown) Blood Pressure (units (unknown) date) 133/70 140/73 unknown) (unknown) (no (unknown) (unknown) Blood Pressure (units (unknown) date) 136/73 145/73 H unknown) (unknown) (no (unknown) (unknown) Blood Pressure (units (unknown) date) 151/80 H unknown) (unknown) (no (unknown) (unknown) Blood Pressure (units (unknown) date) 153/100 H 164/89 H unknown) (unknown) (no (unknown) (unknown) Blood Pressure (units (unknown) date) 153/74 H unknown) (unknown) (no (unknown) (unknown) Blood Pressure (units (unknown) date) 160/81 H unknown) (unknown) (no (unknown) (unknown) Blood Pressure (units (unknown) date) 162/79 H 09/28/22 unknown) 11:33 (unknown) (no (unknown) (unknown) Blood Pressure (units (unknown) date) 162/79 H unknown) (unknown) (no (unknown) (unknown) Blood Pressure (units (unknown) date) 162/82 H unknown) (unknown) (no (unknown) (unknown) Blood Pressure (units (unknown) date) 162/83 H unknown) (unknown) (no (unknown) (unknown) Blood Pressure (units (unknown) date) 165/82 H 164/84 H unknown) (unknown) (no (unknown) (unknown) Blood Pressure (units (unknown) date) 169/91 H unknown) (unknown) (no (unknown) (unknown) Blood Pressure (units (unknown) date) 178/83 H 147/70 H unknown) (unknown) (no (unknown) (unknown) Blood Pressure (units (unknown) date) 186/84 H 153/100 H unknown) (unknown) (no (unknown) (unknown) Blood Pressure (units (unknown) date) unknown) (unknown) (no (unknown) (unknown) Bones and chest (units (unknown) date) wall:? No unknown) suspicious bony lesions.? No vertebral body (unknown) (no (unknown) (unknown) Bones and chest (units (unknown) date) wall:? No unknown) suspicious bony lesions.? Overlying soft tissues (unknown) (no (unknown) (unknown) CARDIOVASCULAR: (units (unknown) date) Positive chest unknown) pain, negative palpitations (unknown) (no (unknown) (unknown) CARDIOVASCULAR: (units (unknown) date) Regular rate and unknown) rhythm without murmurs (unknown) (no (unknown) (unknown) CC: Chest pain (units (unknown) date) unknown) (unknown) (no (unknown) (unknown) CK-MB (CK-2) Rel (units (unknown) date) Index TNP unknown) (unknown) (no (unknown) (unknown) CK-MB (CK-2) TNP (units (unknown) date) unknown) (unknown) (no (unknown) (unknown) COMPARISON:? (units (u nknown) date) [facility], unknown) CT, CT CHEST WO CON, 03/04/2022, 12:47. (unknown) (no (unknown) (unknown) COVID19 -Nasal (units (unknown) date) RAPID/Pre-Proc unknown) Stat (unknown) (no (unknown) (unknown) CT Scan Report (units (unknown) date) unknown) (unknown) (no (unknown) (unknown) CT chest w con (units (unknown) date) Stat unknown) (unknown) (no (unknown) (unknown) CT scan - chest: (units (unknown) date) unknown) (unknown) (no (unknown) (unknown) Calcium (units (unkno wn) date) (8.4-10.2) mg/dL unknown) (unknown) (no (unknown) (unknown) Calcium 10.0 (units (u nknown) date) (8.4-10.2) mg/dL unknown) (unknown) (no (unknown) (unknown) Carbon Dioxide (units (unknown) date) (22-32) mmol/L unknown) (unknown) (no (unknown) (unknown) Carbon Dioxide 26 (units (unknown) date) (22-32) mmol/L unknown) (unknown) (no (unknown) (unknown) Central and (units (un known) date) peripheral airways unknown) are patent and normal in caliber.? Peripheral (unknown) (no (unknown) (unknown) Chest pain (units (unk nown) date) unknown) (unknown) (no (unknown) (unknown) Chest x-ray: (units (u nknown) date) unknown) (unknown) (no (unknown) (unknown) Chief Complaint: (units (unknown) date) Chest Pain unknown) (unknown) (no (unknown) (unknown) Chloride (98-107) (units (unknown) date) mmol/L unknown) (unknown) (no (unknown) (unknown) Chloride 102 (units (u nknown) date) (98-107) mmol/L unknown) (unknown) (no (unknown) (unknown) Chronic back pain (units (unknown) date) unknown) (unknown) (no (unknown) (unknown) Clinical (units (unkno wn) date) Impression: unknown) (unknown) (no (unknown) (unknown) Comment:? (units (unkn own) date) Recommend CT chest unknown) with contrast for further evaluation.? (unknown) (no (unknown) (unknown) Complete Blood (units (unknown) date) Count AUTO DIFF unknown) Stat (unknown) (no (unknown) (unknown) Complicating (units (u nknown) date) co-morbidities: unknown) Hypertension pulmonary fibrosis SVT (unknown) (no (unknown) (unknown) Comprehensive (units ( unknown) date) Metabolic Panel unknown) Stat (unknown) (no (unknown) (unknown) Consultations: (units (unknown) date) 2:15 p.m.. Spoke unknown) with hospitalist, Dr. Iraheta, will admit (unknown) (no (unknown) (unknown) Course (units (unkno wn) date) unknown) (unknown) (no (unknown) (unknown) Creatinine (units (unk nown) date) (0.52-1.04) mg/dL unknown) (unknown) (no (unknown) (unknown) Creatinine 0.57 (units (unknown) date) (0.52-1.04) mg/dL unknown) (unknown) (no (unknown) (unknown) : 1935 (units (unknown) date) Acct:[id number] unknown) (unknown) (no (unknown) (unknown) : 1935 (units (unknown) date) unknown) (unknown) (no (unknown) (unknown) Data collected (units (unknown) date) from: Patient and unknown) (unknown) (no (unknown) (unknown) Date of Service: (units (unknown) date) 09/28/22 unknown) (unknown) (no (unknown) (unknown) Departure (units (unkn own) date) unknown) (unknown) (no (unknown) (unknown) Diagnosis: Chest (units (unknown) date) pain unknown) (unknown) (no (unknown) (unknown) Dictated by: (units (u nknown) date) pérez Cisse M.D. on 09/28/2022 at 12:18 ? ? (unknown) (no (unknown) (unknown) Differential (units (u nknown) date) considered: unknown) Includes but not limited to STEMI non-STEMI unstable (unknown) (no (unknown) (unknown) Discharge Plan (units (unknown) date) unknown) (unknown) (no (unknown) (unknown) Discontinued (units (u nknown) date) Medications unknown) (unknown) (no (unknown) (unknown) Discussion: (units (un known) date) Appropriate for unknown) admission. Patient will need observation for chest (unknown) (no (unknown) (unknown) Documented By: RB (units (unknown) date) unknown) (unknown) (no (unknown) (unknown) ED Orders (units (unkn own) date) unknown) (unknown) (no (unknown) (unknown) EKG-12 Lead Stat (units (unknown) date) unknown) (unknown) (no (unknown) (unknown) ENT: Mucous (units (un known) date) membranes moist. unknown) (unknown) (no (unknown) (unknown) ER Physician: (units ( unknown) date) Chad Blanco MD unknown) (unknown) (no (unknown) (unknown) EXTREMITIES: No (units (unknown) date) gross deformities. unknown) (unknown) (no (unknown) (unknown) EYES: Pupils (units (u nknown) date) equal round unknown) (unknown) (no (unknown) (unknown) Emergency Report (units (unknown) date) unknown) (unknown) (no (unknown) (unknown) Eos # (Auto) (units (u nknown) date) (0-450) /uL unknown) (unknown) (no (unknown) (unknown) Eos # (Auto) 500 (units (unknown) date) H (0-450) /uL unknown) (unknown) (no (unknown) (unknown) Eos % (Auto) (units (u nknown) date) (2-4) % unknown) (unknown) (no (unknown) (unknown) Eos % (Auto) 3.5 (units (unknown) date) (2-4) % unknown) (unknown) (no (unknown) (unknown) Esterase (units (unkno wn) date) unknown) (unknown) (no (unknown) (unknown) Estimated GFR > (units (unknown) date) 60 (>60) mL/min unknown) (unknown) (no (unknown) (unknown) Estimated GFR (units ( unknown) date) (>60) mL/min unknown) (unknown) (no (unknown) (unknown) Exam Narrative: (units (unknown) date) unknown) (unknown) (no (unknown) (unknown) Exam documented (units (unknown) date) above, pertinent unknown) findings include: No reproducible chest (unknown) (no (unknown) (unknown) Exam (units (unkno wn) date) unknown) (unknown) (no (unknown) (unknown) FINDINGS:? (units (unk nown) date) unknown) (unknown) (no (unknown) (unknown) GASTROINTESTINAL: (units (unknown) date) Abdomen soft, unknown) non-tender (unknown) (no (unknown) (unknown) GASTROINTESTINAL: (units (unknown) date) negative nausea, unknown) vomiting, abdominal pain (unknown) (no (unknown) (unknown) GENERAL: in no (units (unknown) date) distress, not unknown) toxic not dyspneic (unknown) (no (unknown) (unknown) GENERAL: negative (units (unknown) date) chills, fatigue, unknown) malaise, fever, sweats. (unknown) (no (unknown) (unknown) GERD (units (unkno wn) date) (gastroesophageal unknown) reflux disease) (unknown) (no (unknown) (unknown) : negative (units (u nknown) date) dysuria, unknown) frequency, hematuria (unknown) (no (unknown) (unknown) General (units (unkno wn) date) unknown) (unknown) (no (unknown) (unknown) Globulin (units (unkno wn) date) (1.7-4.1) g/dL unknown) (unknown) (no (unknown) (unknown) Globulin 4.5 H (units (unknown) date) (1.7-4.1) g/dL unknown) (unknown) (no (unknown) (unknown) Glucose (80-110) (units (unknown) date) mg/dL unknown) (unknown) (no (unknown) (unknown) Glucose 174 H (units ( unknown) date) (80-110) mg/dL unknown) (unknown) (no (unknown) (unknown) HEAD: (units (unkno wn) date) Normocephalic. unknown) (unknown) (no (unknown) (unknown) HEENT: negative (units (unknown) date) sinus pain, ear unknown) pain, sore throat (unknown) (no (unknown) (unknown) HPI - Chest Pain (units (unknown) date) unknown) (unknown) (no (unknown) (unknown) HPI narrative: (units (unknown) date) unknown) (unknown) (no (unknown) (unknown) Hct (36-46) % (units ( unknown) date) unknown) (unknown) (no (unknown) (unknown) Hct 36.2 (36-46) (units (unknown) date) % unknown) (unknown) (no (unknown) (unknown) Hearing loss (units (u nknown) date) unknown) (unknown) (no (unknown) (unknown) Hgb (12.0-16.0) (units (unknown) date) g/dL unknown) (unknown) (no (unknown) (unknown) Hgb 12.2 (units (unkno wn) date) (12.0-16.0) g/dL unknown) (unknown) (no (unknown) (unknown) History of (units (unk nown) date) Present Illness unknown) (unknown) (no (unknown) (unknown) History of total (units (unknown) date) hip replacement unknown) (unknown) (no (unknown) (unknown) History of (units (unk nown) date) urinary unknown) incontinence (unknown) (no (unknown) (unknown) Home Medications (units (unknown) date) unknown) (unknown) (no (unknown) (unknown) IMPRESSION:? (units (u nknown) date) unknown) (unknown) (no (unknown) (unknown) INDICATIONS:? (units ( unknown) date) Chest pain unknown) (unknown) (no (unknown) (unknown) INDICATIONS:? 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 (units (unknown) date) Excellent.? unknown) (unknown) (no (unknown) (unknown) Imaging Data (units (u nknown) date) unknown) (unknown) (no (unknown) (unknown) Imaging studies (units (unknown) date) independently unknown) reviewed: Chest x-ray no acute process, CT chest (unknown) (no (unknown) (unknown) Independently (units ( unknown) date) reviewed EKG as unknown) above normal sinus rhythm rate [address] elevation (unknown) (no (unknown) (unknown) Inhibitor ACHES (units (unknown) date) AND unknown) (unknown) (no (unknown) (unknown) Initial Vital (units ( unknown) date) Signs unknown) (unknown) (no (unknown) (unknown) Initial Vital (units ( unknown) date) Signs: unknown) (unknown) (no (unknown) (unknown) [facility] (units (unknown) date) [address] unknown) [place] [address] (unknown) (no (unknown) (unknown) [facility] (units (unknown) date) unknown) (unknown) (no (unknown) (unknown) Lab Data (units (unkno wn) date) unknown) (unknown) (no (unknown) (unknown) Lab Results (units (un known) date) unknown) (unknown) (no (unknown) (unknown) Lab Test results (units (unknown) date) independently unknown) reviewed as above. Pertinent findings: Sodium (unknown) (no (unknown) (unknown) Labs: (units (unkno wn) date) unknown) (unknown) (no (unknown) (unknown) Last Admin: (units (un known) date) 09/28/22 12:46 unknown) Dose: 324 mg (unknown) (no (unknown) (unknown) Last Admin: (units (un known) date) 09/28/22 12:47 unknown) Dose: 0.5 inch (unknown) (no (unknown) (unknown) Last Infusion: (units (unknown) date) 09/28/22 16:24 unknown) Dose: 0 mls/hr (unknown) (no (unknown) (unknown) Limitations: no (units (unknown) date) limitations unknown) (unknown) (no (unknown) (unknown) Lipase (23-300) (units (unknown) date) U/L unknown) (unknown) (no (unknown) (unknown) Lipase 52 (units (unkn own) date) (23-300) U/L unknown) (unknown) (no (unknown) (unknown) Lipase Stat (units (un known) date) unknown) (unknown) (no (unknown) (unknown) Loc: ED (units (unkno wn) date) unknown) (unknown) (no (unknown) (unknown) Lungs and (units (unkn own) date) pleura:? unknown) Development of nodular densities in the right apex and right (unknown) (no (unknown) (unknown) Lungs and (units (unkn own) date) pleura:? No acute unknown) air space opacities.? No pleural effusions or (unknown) (no (unknown) (unknown) Lymph # (Auto) (units (unknown) date) ([id number]) /uL unknown) (unknown) (no (unknown) (unknown) Lymph # (Auto) (units (unknown) date) 2000 ([phone]) unknown) /uL (unknown) (no (unknown) (unknown) Lymph % (Auto) (units (unknown) date) (25-40) % unknown) (unknown) (no (unknown) (unknown) Lymph % (Auto) (units (unknown) date) 15.3 L (25-40) % unknown) (unknown) (no (unknown) (unknown) [id number] (units (unk nown) date) unknown) (unknown) (no (unknown) (unknown) MCH (26-34) PG (units (unknown) date) unknown) (unknown) (no (unknown) (unknown) MCH 31.2 (26-34) (units (unknown) date) PG unknown) (unknown) (no (unknown) (unknown) MCHC (30-36) % (units (unknown) date) unknown) (unknown) (no (unknown) (unknown) MCHC 33.7 (30-36) (units (unknown) date) % unknown) (unknown) (no (unknown) (unknown) MCV (80-100) fL (units (unknown) date) unknown) (unknown) (no (unknown) (unknown) MCV 92.5 (80-100) (units (unknown) date) fL unknown) (unknown) (no (unknown) (unknown) MDM - Chest Pain (units (unknown) date) unknown) (unknown) (no (unknown) (unknown) MDM Narrative (units ( unknown) date) unknown) (unknown) (no (unknown) (unknown) MDM (units (unkno wn) date) unknown) (unknown) (no (unknown) (unknown) MR#: [id number] (units (unknown) date) unknown) (unknown) (no (unknown) (unknown) MUSCULOSKELETAL: (units (unknown) date) negative muscle or unknown) bony pain (unknown) (no (unknown) (unknown) Magnesium (units (unkn own) date) (1.6-2.3) mg/dL unknown) (unknown) (no (unknown) (unknown) Magnesium 1.7 (units ( unknown) date) (1.6-2.3) mg/dL unknown) (unknown) (no (unknown) (unknown) Magnesium Stat (units (unknown) date) unknown) (unknown) (no (unknown) (unknown) Mediastinum:? (units (u nknown) date) Heart size is unknown) normal.? No pericardial effusion.? No mediastinal or (unknown) (no (unknown) (unknown) Mediastinum:? (units ( unknown) date) Mediastinal unknown) contours appear normal.? Heart size is normal.? Large (unknown) (no (unknown) (unknown) Medical History (units (unknown) date) (Updated 02/15/23 unknown) @ 15:50 by Chad Blanco MD) (unknown) (no (unknown) (unknown) Medical decision (units (unknown) date) making narrative: unknown) (unknown) (no (unknown) (unknown) Medical records (units (unknown) date) reviewed: Records unknown) from primary care office visit (unknown) (no (unknown) (unknown) Medication (units (unk nown) date) Instructions unknown) Recorded Confirmed (unknown) (no (unknown) (unknown) Medication (units (unk nown) date) Instructions unknown) Recorded (unknown) (no (unknown) (unknown) Mode of arrival: (units (unknown) date) Wheelchair unknown) (unknown) (no (unknown) (unknown) [place] # (Auto) (units ( unknown) date) (0-900) /uL unknown) (unknown) (no (unknown) (unknown) [place] # (Auto) (units ( unknown) date) 1000 H (0-900) /uL unknown) (unknown) (no (unknown) (unknown) [place] % (Auto) (units ( unknown) date) (3-14) % unknown) (unknown) (no (unknown) (unknown) [place] % (Auto) 7.8 (units (unknown) date) (3-14) % unknown) (unknown) (no (unknown) (unknown) NECK: [place] (units ( unknown) date) midline. unknown) (unknown) (no (unknown) (unknown) NEURO: AOx4. (units (u nknown) date) unknown) (unknown) (no (unknown) (unknown) NEUROLOGIC: (units (un known) date) negative weakness, unknown) numbness (unknown) (no (unknown) (unknown) Narrative (units (unkn own) date) unknown) (unknown) (no (unknown) (unknown) Narrative: (units (unk nown) date) unknown) (unknown) (no (unknown) (unknown) Neut # (Auto) (units ( unknown) date) (7745-8410) /uL unknown) (unknown) (no (unknown) (unknown) Neut # (Auto) (units ( unknown) date) 9400 H (2201-4483) unknown) /uL (unknown) (no (unknown) (unknown) Neut % (Auto) (units ( unknown) date) (50-75) % unknown) (unknown) (no (unknown) (unknown) Neut % (Auto) (units ( unknown) date) 72.5 (50-75) % unknown) (unknown) (no (unknown) (unknown) Nitroglycerin (units ( unknown) date) (Nitroglycerin unknown) Oint 1 Inch/Gm Oint...G.) 0.5 inch TOP NOW ONE (unknown) (no (unknown) (unknown) Ordered: (units (unkno wn) date) unknown) (unknown) (no (unknown) (unknown) Ordering (units (unkno wn) date) Provider: unknown) Chad Blanco MD (unknown) (no (unknown) (unknown) Orders (units (unkno wn) date) unknown) (unknown) (no (unknown) (unknown) Osteoarthritis (units (unknown) date) unknown) (unknown) (no (unknown) (unknown) Osteoporosis (units (u nknown) date) unknown) (unknown) (no (unknown) (unknown) Oxygen Delivery (units (unknown) date) Method 09/28/22 unknown) 11:33 (unknown) (no (unknown) (unknown) Oxygen Delivery (units (unknown) date) Method Room Air unknown) (unknown) (no (unknown) (unknown) Oxygen Delivery (units (unknown) date) Method unknown) (unknown) (no (unknown) (unknown) PROCEDURE:? CT (units (unknown) date) CHEST W CON unknown) (unknown) (no (unknown) (unknown) PROCEDURE:? XR (units (unknown) date) CHEST 1V unknown) (unknown) (no (unknown) (unknown) PSYCH: Not (units (unk nown) date) anxious, is unknown) cooperative (unknown) (no (unknown) (unknown) PT (10.1-12.7) (units (unknown) date) SECONDS unknown) (unknown) (no (unknown) (unknown) PT 11.4 (units (unkno wn) date) (10.1-12.7) unknown) SECONDS (unknown) (no (unknown) (unknown) Partial (units (unkno wn) date) Thromboplastin unknown) Time Stat (unknown) (no (unknown) (unknown) Patient (units (unkno wn) date) Disposition: unknown) Admitted as Observation (unknown) (no (unknown) (unknown) Patient History (units (unknown) date) unknown) (unknown) (no (unknown) (unknown) Patient does have (units (unknown) date) history SVT in had unknown) recent Holter monitor. Primary care is (unknown) (no (unknown) (unknown) Patient here for (units (unknown) date) nonreproducible unknown) chest pain. at bedside. Complains of (unknown) (no (unknown) (unknown) Patient: (units (unkno wn) date) Rosita Devi unknown) MR#: (unknown) (no (unknown) (unknown) Patient: (units (unkno wn) date) Rosita Devi unknown) (unknown) (no (unknown) (unknown) Plt Count (units (unkn own) date) (150-400) X103/uL unknown) (unknown) (no (unknown) (unknown) Plt Count 257 (units ( unknown) date) (150-400) X103/uL unknown) (unknown) (no (unknown) (unknown) Potassium (units (unkn own) date) (3.4-5.1) mmol/L unknown) (unknown) (no (unknown) (unknown) Potassium 4.1 (units ( unknown) date) (3.4-5.1) mmol/L unknown) (unknown) (no (unknown) (unknown) Previous Rx's (units ( unknown) date) unknown) (unknown) (no (unknown) (unknown) Procedure: CT (units ( unknown) date) chest w con unknown) (unknown) (no (unknown) (unknown) Procedure: XR (units ( unknown) date) chest 1V unknown) (unknown) (no (unknown) (unknown) Prothrombin Time (units (unknown) date) INR Stat unknown) (unknown) (no (unknown) (unknown) Pulmonary (units (unkn own) date) fibrosis unknown) (unknown) (no (unknown) (unknown) Pulse Oximetry (units (unknown) date) 100 100 unknown) (unknown) (no (unknown) (unknown) Pulse Oximetry (units (unknown) date) 100 unknown) (unknown) (no (unknown) (unknown) Pulse Oximetry 97 (units (unknown) date) 09/28/22 11:33 unknown) (unknown) (no (unknown) (unknown) Pulse Oximetry 97 (units (unknown) date) 100 100 unknown) (unknown) (no (unknown) (unknown) Pulse Rate 76 81 (units (unknown) date) unknown) (unknown) (no (unknown) (unknown) Pulse Rate 76 (units ( unknown) date) unknown) (unknown) (no (unknown) (unknown) Pulse Rate 78 81 (units (unknown) date) unknown) (unknown) (no (unknown) (unknown) Pulse Rate 80 87 (units (unknown) date) unknown) (unknown) (no (unknown) (unknown) Pulse Rate 81 87 (units (unknown) date) unknown) (unknown) (no (unknown) (unknown) Pulse Rate 81 (units ( unknown) date) unknown) (unknown) (no (unknown) (unknown) Pulse Rate 82 87 (units (unknown) date) unknown) (unknown) (no (unknown) (unknown) Pulse Rate 82 (units ( unknown) date) unknown) (unknown) (no (unknown) (unknown) Pulse Rate 85 (units ( unknown) date) unknown) (unknown) (no (unknown) (unknown) Pulse Rate 86 84 (units (unknown) date) unknown) (unknown) (no (unknown) (unknown) Pulse Rate 86 (units ( unknown) date) unknown) (unknown) (no (unknown) (unknown) Pulse Rate 88 85 (units (unknown) date) unknown) (unknown) (no (unknown) (unknown) Pulse Rate 94 H (units (unknown) date) 09/28/22 11:33 unknown) (unknown) (no (unknown) (unknown) Pulse Rate 94 H (units (unknown) date) 89 89 unknown) (unknown) (no (unknown) (unknown) RACING (units (unkno wn) date) unknown) (unknown) (no (unknown) (unknown) RBC (4.0-5.2) (units ( unknown) date) X106/uL unknown) (unknown) (no (unknown) (unknown) RBC 3.91 L (units (unk nown) date) (4.0-5.2) X106/uL unknown) (unknown) (no (unknown) (unknown) RDW (11.6-14.8) % (units (unknown) date) unknown) (unknown) (no (unknown) (unknown) RDW 14.7 (units (unkno wn) date) (11.6-14.8) % unknown) (unknown) (no (unknown) (unknown) RESPIRATORY: Clear (units (unknown) date) to auscultation. unknown) Breath sounds equal bilaterally. No wheezes, (unknown) (no (unknown) (unknown) RESPIRATORY: (units (u nknown) date) Positive dyspnea, unknown) negative cough (unknown) (no (unknown) (unknown) ROS Unobtainable: (units (unknown) date) All systems unknown) reviewed + are unremarkable except as noted in HPI (unknown) (no (unknown) (unknown) Radiologist's (units ( unknown) date) Impression: unknown) (unknown) (no (unknown) (unknown) Re-evaluations: (units (unknown) date) 3:48 p.m.. Patient unknown) chest pain-free after nitro paste. I did (unknown) (no (unknown) (unknown) Related Data (units (u nknown) date) unknown) (unknown) (no (unknown) (unknown) Respiratory Rate (units (unknown) date) 18 09/28/22 11:33 unknown) (unknown) (no (unknown) (unknown) Respiratory Rate (units (unknown) date) 18 15 29 H unknown) (unknown) (no (unknown) (unknown) Respiratory Rate (units (unknown) date) 21 unknown) (unknown) (no (unknown) (unknown) Respiratory Rate (units (unknown) date) 24 unknown) (unknown) (no (unknown) (unknown) Respiratory Rate (units (unknown) date) 33 H unknown) (unknown) (no (unknown) (unknown) Respiratory Rate (units (unknown) date) unknown) (unknown) (no (unknown) (unknown) Review of Systems (units (unknown) date) unknown) (unknown) (no (unknown) (unknown) SARS-CoV-2 (PCR) (units (unknown) date) (Negative) unknown) (unknown) (no (unknown) (unknown) SARS-CoV-2 (PCR) (units (unknown) date) Negative unknown) (Negative) (unknown) (no (unknown) (unknown) SKIN: Warm and (units (unknown) date) dry unknown) (unknown) (no (unknown) (unknown) SKIN: negative (units (unknown) date) rash, skin lesions unknown) (unknown) (no (unknown) (unknown) STOMACH (units (unkno wn) date) unknown) (unknown) (no (unknown) (unknown) SVT (units (unkno wn) date) (supraventricular unknown) tachycardia) (unknown) (no (unknown) (unknown) Shoulder pain (units ( unknown) date) unknown) (unknown) (no (unknown) (unknown) Signed By: (units (unk nown) date) unknown) (unknown) (no (unknown) (unknown) Signed (units (unkno wn) date) unknown) (unknown) (no (unknown) (unknown) Sleep apnea (units (un known) date) unknown) (unknown) (no (unknown) (unknown) Smoking Status: (units (unknown) date) Former smoker unknown) (unknown) (no (unknown) (unknown) Social History (units (unknown) date) unknown) (unknown) (no (unknown) (unknown) Sodium (137-145) (units (unknown) date) mmol/L unknown) (unknown) (no (unknown) (unknown) Sodium 136 L (units (u nknown) date) (137-145) mmol/L unknown) (unknown) (no (unknown) (unknown) Sodium Chloride (units (unknown) date) (Normal Saline unknown) 0.9%) 500 mls @ 1,000 mls/hr IV BOLUS ONE (unknown) (no (unknown) (unknown) Source: patient (units (unknown) date) unknown) (unknown) (no (unknown) (unknown) Stated Complaint: (units (unknown) date) heart problems unknown) sent by Dr. Holder (unknown) (no (unknown) (unknown) [id number] (units (unknown) date) Reductase AdvReac unknown) Intermediate MUSCLE Verified 09/28/22 11:32 (unknown) (no (unknown) (unknown) Stop: 09/28/22 (units (unknown) date) 12:31 unknown) (unknown) (no (unknown) (unknown) Stop: 09/28/22 (units (unknown) date) 15:43 unknown) (unknown) (no (unknown) (unknown) Substance Use (units ( unknown) date) Type: does not use unknown) (unknown) (no (unknown) (unknown) Surgical History (units (unknown) date) (Updated 06/14/22 unknown) @ 22:24 by Sherita Carreon) (unknown) (no (unknown) (unknown) Surgical changes (units (unknown) date) and devices:? unknown) None.? (unknown) (no (unknown) (unknown) TECHNIQUE:? One (units (unknown) date) view of the chest unknown) was acquired.? (unknown) (no (unknown) (unknown) TECHNIQUE:? (units (un known) date) unknown) (unknown) (no (unknown) (unknown) Temperature 96.7 (units (unknown) date) F L 09/28/22 11:33 unknown) (unknown) (no (unknown) (unknown) Temperature 96.7 (units (unknown) date) F L unknown) (unknown) (no (unknown) (unknown) Temperature (units (un known) date) unknown) (unknown) (no (unknown) (unknown) Time Seen by (units (u nknown) date) Provider: 09/28/22 unknown) 11:43 (unknown) (no (unknown) (unknown) Total Bilirubin (units (unknown) date) (0.2-1.3) mg/dL unknown) (unknown) (no (unknown) (unknown) Total Bilirubin (units (unknown) date) 0.5 (0.2-1.3) unknown) mg/dL (unknown) (no (unknown) (unknown) Total Creatine (units (unknown) date) Kinase 48 (30-135) unknown) U/L (unknown) (no (unknown) (unknown) Total Creatine (units (unknown) date) Kinase 51 (30-135) unknown) U/L (unknown) (no (unknown) (unknown) Total Protein (units ( unknown) date) (6.3-8.2) g/dL unknown) (unknown) (no (unknown) (unknown) Total Protein 8.9 (units (unknown) date) H (6.3-8.2) g/dL unknown) (unknown) (no (unknown) (unknown) Treatments: (units (un known) date) Aspirin/nitro unknown) paste/normal saline (unknown) (no (unknown) (unknown) Troponin + CK (units ( unknown) date) Cardiac Panel Stat unknown) (unknown) (no (unknown) (unknown) Troponin I < (units (u nknown) date) 0.012 (0.01-0.034) unknown) ng/mL (unknown) (no (unknown) (unknown) 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, 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0) X103/uL unknown) (unknown) (no (unknown) (unknown) XR chest 1V Stat (units (unknown) date) unknown) (unknown) (no (unknown) (unknown) XRay Report (units (un known) date) unknown) (unknown) (no (unknown) (unknown) [Embedded Image (units (unknown) date) Not Available] unknown) (unknown) (no (unknown) (unknown) [From FOSAMAX] (units (unknown) date) STOMACH unknown) (unknown) (no (unknown) (unknown) [[id number] (units (unknown) date) REDUCTASE WEIGHT unknown) LOSS (unknown) (no (unknown) (unknown) abdominal bowel (units (unknown) date) unknown) (unknown) (no (unknown) (unknown) acetaminophen 500 (units (unknown) date) mg tablet 500 mg unknown) PO Q6HP PRN pain ##0 05/24/17 09/26/22 (unknown) (no (unknown) (unknown) adenopathy by (units ( unknown) date) size criteria.? unknown) Thoracic aorta and central pulmonary arteries are (unknown) (no (unknown) (unknown) alcohol intake (units (unknown) date) frequency: 0-2 unknown) drinks per day (unknown) (no (unknown) (unknown) alendronate 70 mg (units (unknown) date) tablet (Fosamax) unknown) 70 mg PO QWEEK 09/26/22 09/26/22 (unknown) (no (unknown) (unknown) alendronate (units (un known) date) sodium AdvReac unknown) Intermediate UPSET Verified 09/28/22 11:32 (unknown) (no (unknown) (unknown) and below (units (unkn own) date) unknown) (unknown) (no (unknown) (unknown) and/or (units (unkno wn) date) unknown) (unknown) (no (unknown) (unknown) angina angina (units ( unknown) date) atypical chest unknown) pain (unknown) (no (unknown) (unknown) appear (units (unkno wn) date) unknown) (unknown) (no (unknown) (unknown) base.? 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 (unknown) (no (unknown) (unknown) calcification.? (units (unknown) date) unknown) (unknown) (no (unknown) (unknown) chest (units (unkno wn) date) pain/echocardiogra unknown) m/stress test (unknown) (no (unknown) (unknown) compression (units (un known) date) unknown) (unknown) (no (unknown) (unknown) considering (units (un known) date) placing her on unknown) metoprolol. No recent illness. Does have history of (unknown) (no (unknown) (unknown) coronal and (units (un known) date) sagittal reformats unknown) and 7 mm axial MIP were acquired.? For radiation (unknown) (no (unknown) (unknown) dose (units (unkno wn) date) unknown) (unknown) (no (unknown) (unknown) ezetimibe [From (units (unknown) date) ZETIA] AdvReac unknown) Mild COUGHING Verified 09/28/22 11:32 (unknown) (no (unknown) (unknown) for admit. (units (unk nown) date) unknown) (unknown) (no (unknown) (unknown) fractures.? No (units ( unknown) date) axillary or unknown) supraclavicular adenopathy by size criteria.? Thyroid (unknown) (no (unknown) (unknown) from the (units (unkno wn) date) unknown) (unknown) (no (unknown) (unknown) from (units (unkno wn) date) unknown) (unknown) (no (unknown) (unknown) gland (units (unkno wn) date) unknown) (unknown) (no (unknown) (unknown) glimepiride 1 mg (units (unknown) date) tablet (Amaryl) 1 unknown) mg PO DAILY #0 tabs 09/26/22 09/26/22 (unknown) (no (unknown) (unknown) hernia. (units (unkno wn) date) unknown) (unknown) (no (unknown) (unknown) hiatal (units (unkno wn) date) unknown) (unknown) (no (unknown) (unknown) hilar (units (unkno wn) date) unknown) (unknown) (no (unknown) (unknown) household (units (unkn own) date) members: spouse unknown) (unknown) (no (unknown) (unknown) hydrocodone 5 (units ( unknown) date) mg-acetaminophen unknown) 325 0.5 - 1 tab PO BEDTIME PRN pain 08/24/22 (unknown) (no (unknown) (unknown) interstitial (units (u nknown) date) unknown) (unknown) (no (unknown) (unknown) kV according to (units (unknown) date) patient size.? unknown) (unknown) (no (unknown) (unknown) loops are normal (units (unknown) date) in caliber.? unknown) Incidental cholelithiasis (unknown) (no (unknown) (unknown) losartan 100 mg (units (unknown) date) tablet 100 mg PO unknown) DAILY blood pressure #90 08/24/22 (unknown) (no (unknown) (unknown) lung (units (unkno wn) date) unknown) (unknown) (no (unknown) (unknown) mg tablet #30 (units ( unknown) date) tabs unknown) (unknown) (no (unknown) (unknown) no acute process (units (unknown) date) unknown) (unknown) (no (unknown) (unknown) normal in (units (unkn own) date) unknown) (unknown) (no (unknown) (unknown) obin 12.2 (units (unkn own) date) hematocrit 36.2 unknown) (unknown) (no (unknown) (unknown) omeprazole [From (units (unknown) date) PRILOSEC] AdvReac unknown) Intermediate UPSET Verified 09/28/22 11:32 (unknown) (no (unknown) (unknown) or chills. (units (unk nown) date) unknown) (unknown) (no (unknown) (unknown) or depression (units ( unknown) date) unknown) (unknown) (no (unknown) (unknown) ordered (units (unkno wn) date) unknown) (unknown) (no (unknown) (unknown) oxygen #1 ea (units (u nknown) date) 06/17/22 unknown) (unknown) (no (unknown) (unknown) oxygen (units (unkno wn) date) concentrator #1 ea unknown) 08/18/22 (unknown) (no (unknown) (unknown) pain relieved (units ( unknown) date) with nitro. Will unknown) need echocardiogram and stress test. Reviewed (unknown) (no (unknown) (unknown) pain/tenderness (units (unknown) date) unknown) (unknown) (no (unknown) (unknown) pantoprazole 40 (units (unknown) date) mg tablet,delayed unknown) 40 mg PO DAILY Hiatal hernia--gerd 09/26/22 (unknown) (no (unknown) (unknown) patient repeating (units (unknown) date) repeat troponin unknown) and CT scan imaging. (unknown) (no (unknown) (unknown) plant stanol (units (u nknown) date) tim 450 mg unknown) tablet 1 tab PO QAM 05/17/18 09/26/22 (unknown) (no (unknown) (unknown) pneumothorax.? (units (unknown) date) unknown) (unknown) (no (unknown) (unknown) prior.? Did dense (units (unknown) date) mitral valve unknown) annular and coronary artery vascular (unknown) (no (unknown) (unknown) pulmonary apices (units (unknown) date) to the posterior unknown) costophrenic angles.? 1 mm axial lung, 5 mm (unknown) (no (unknown) (unknown) pulmonary (units (unkn own) date) fibrosis. No unknown) recent illness otherwise no cough cold congestion fever (unknown) (no (unknown) (unknown) rales, or (units (unkn own) date) rhonchi. unknown) (unknown) (no (unknown) (unknown) reduction, the (units ( unknown) date) following was unknown) used:? automated exposure control, adjustment of mA (unknown) (no (unknown) (unknown) release (units (unkno wn) date) unknown) (unknown) (no (unknown) (unknown) remain unchanged (units (unknown) date) from the prior unknown) (unknown) (no (unknown) (unknown) reticulonodular (units (unknown) date) thickening may unknown) reflect fibrosis, stable (unknown) (no (unknown) (unknown) review results (units (unknown) date) with patient and unknown) . They do understand agree for admit for (unknown) (no (unknown) (unknown) size.? Esophagus (units (unknown) date) is normal in unknown) caliber.? 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 (unknown) (no (unknown) (unknown) substernal (units (unk nown) date) pressure and unknown) shortness of breath since last night. Patient did have (unknown) (no (unknown) (unknown) tabs (units (unkno wn) date) unknown) (unknown) (no (unknown) (unknown) thick (units (unkno wn) date) unknown) (unknown) (no (unknown) (unknown) tramadol (units (unkno wn) date) [TRAMADOL] Allergy unknown) Intermediate HEART Verified 09/28/22 11:32 (unknown) (no (unknown) (unknown) unremarkable .? (units (unknown) date) Several unknown) wedge-shaped compression fractures in the midthoracic (unknown) (no (unknown) (unknown) unremarkable.? (units (unknown) date) unknown) (unknown) (no (unknown) (unknown) with patient and (units (unknown) date) agree for unknown) admit. 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, chronic unknown) (unknown) (no (unknown) (unknown) (Tylenol Extra (units (unknown) date) Strength) unknown) (unknown) (no (unknown) (unknown) (past 8 hours): (units (unknown) date) unknown) (unknown) (no (unknown) (unknown) -TP (units (unkno wn) date) contemplating unknown) starting beta-josé miguel (unknown) (no (unknown) (unknown) -check A1c (units (unk nown) date) unknown) (unknown) (no (unknown) (unknown) -check lipids, (units (unknown) date) TSH, A1c and mag unknown) (unknown) (no (unknown) (unknown) -continue [place] (units (unknown) date) as needed unknown) (unknown) (no (unknown) (unknown) -continue PPI (units ( unknown) date) unknown) (unknown) (no (unknown) (unknown) -continue home (units (unknown) date) losartan 100 mg unknown) daily (unknown) (no (unknown) (unknown) -echo ordered (units ( unknown) date) unknown) (unknown) (no (unknown) (unknown) -heart score of (units (unknown) date) 4 unknown) (unknown) (no (unknown) (unknown) -hold home (units (unk nown) date) glimepiride unknown) (unknown) (no (unknown) (unknown) -low-dose (units (unkn own) date) sliding scale unknown) insulin (unknown) (no (unknown) (unknown) -nuclear stress (units (unknown) date) test ordered, unknown) cannot be completed until 09/30 due to availability (unknown) (no (unknown) (unknown) -start aspirin (units (unknown) date) 81 mg daily unknown) (unknown) (no (unknown) (unknown) -tele as above (units (unknown) date) unknown) (unknown) (no (unknown) (unknown) -tele (units (unkno wn) date) unknown) (unknown) (no (unknown) (unknown) 09/28/22 (units (unkno wn) date) 09/28/22 09/28/22 unknown) (unknown) (no (unknown) (unknown) 09/28/22 (units (unkno wn) date) 09/28/22 unknown) (unknown) (no (unknown) (unknown) 09/28/22 11:50 (units (unknown) date) unknown) (unknown) (no (unknown) (unknown) 09/28/22 History (units (unknown) date) unknown) (unknown) (no (unknown) (unknown) 09/28/22 Rx (units (un known) date) unknown) (unknown) (no (unknown) (unknown) 09/28/22 (units (unkno wn) date) unknown) (unknown) (no (unknown) (unknown) 11:33 09/28/22 (units (unknown) date) unknown) (unknown) (no (unknown) (unknown) 11:42 09/28/22 (units (unknown) date) unknown) (unknown) (no (unknown) (unknown) 11:50 11:50 (units (un known) date) 11:50 unknown) (unknown) (no (unknown) (unknown) 12:00 (units (unkno wn) date) unknown) (unknown) (no (unknown) (unknown) 12:01 09/28/22 (units (unknown) date) unknown) (unknown) (no (unknown) (unknown) 12:30 09/28/22 (units (unknown) date) unknown) (unknown) (no (unknown) (unknown) 12:47 (units (unkno wn) date) unknown) (unknown) (no (unknown) (unknown) 12:55 14:20 (units (un known) date) unknown) (unknown) (no (unknown) (unknown) 12:58 09/28/22 (units (unknown) date) unknown) (unknown) (no (unknown) (unknown) 12:58 (units (unkno wn) date) unknown) (unknown) (no (unknown) (unknown) 13:00 09/28/22 (units (unknown) date) unknown) (unknown) (no (unknown) (unknown) 13:00 (units (unkno wn) date) unknown) (unknown) (no (unknown) (unknown) 13:10 09/28/22 (units (unknown) date) unknown) (unknown) (no (unknown) (unknown) 13:20 09/28/22 (units (unknown) date) unknown) (unknown) (no (unknown) (unknown) 13:20 (units (unkno wn) date) unknown) (unknown) (no (unknown) (unknown) 13:30 09/28/22 (units (unknown) date) unknown) (unknown) (no (unknown) (unknown) 13:31 09/28/22 (units (unknown) date) unknown) (unknown) (no (unknown) (unknown) 13:31 (units (unkno wn) date) unknown) (unknown) (no (unknown) (unknown) 13:40 09/28/22 (units (unknown) date) unknown) (unknown) (no (unknown) (unknown) 13:40 (units (unkno wn) date) unknown) (unknown) (no (unknown) (unknown) 13:50 09/28/22 (units (unknown) date) unknown) (unknown) (no (unknown) (unknown) 14:00 (units (unkno wn) date) unknown) (unknown) (no (unknown) (unknown) 14:01 09/28/22 (units (unknown) date) unknown) (unknown) (no (unknown) (unknown) 14:10 09/28/22 (units (unknown) date) unknown) (unknown) (no (unknown) (unknown) 14:10 (units (unkno wn) date) unknown) (unknown) (no (unknown) (unknown) 14:20 09/28/22 (units (unknown) date) unknown) (unknown) (no (unknown) (unknown) 14:20 (units (unkno wn) date) unknown) (unknown) (no (unknown) (unknown) 14:30 09/28/22 (units (unknown) date) unknown) (unknown) (no (unknown) (unknown) 14:40 09/28/22 (units (unknown) date) unknown) (unknown) (no (unknown) (unknown) 14:40 (units (unkno wn) date) unknown) (unknown) (no (unknown) (unknown) 14:50 09/28/22 (units (unknown) date) unknown) (unknown) (no (unknown) (unknown) 14:50 (units (unkno wn) date) unknown) (unknown) (no (unknown) (unknown) 15:00 09/28/22 (units (unknown) date) unknown) (unknown) (no (unknown) (unknown) 15:12 (units (unkno wn) date) unknown) (unknown) (no (unknown) (unknown) ABD: soft, (units (unk nown) date) nontender, unknown) nondistended, no organomegaly (unknown) (no (unknown) (unknown) ALT 21 (units (unkno wn) date) unknown) (unknown) (no (unknown) (unknown) ALT (units (unkno wn) date) unknown) (unknown) (no (unknown) (unknown) APTT 29 (units (unkno wn) date) unknown) (unknown) (no (unknown) (unknown) APTT (units (unkno wn) date) unknown) (unknown) (no (unknown) (unknown) AST 25 (units (unkno wn) date) unknown) (unknown) (no (unknown) (unknown) AST (units (unkno wn) date) unknown) (unknown) (no (unknown) (unknown) Age/Sex: 86 / F (units (unknown) date) unknown) (unknown) (no (unknown) (unknown) Albumin 4.4 (units (un known) date) unknown) (unknown) (no (unknown) (unknown) Albumin (units (unkno wn) date) unknown) (unknown) (no (unknown) (unknown) Albumin/Globulin (units (unknown) date) Ratio 1.0 unknown) (unknown) (no (unknown) (unknown) Albumin/Globulin (units (unknown) date) Ratio unknown) (unknown) (no (unknown) (unknown) Alkaline (units (unkno wn) date) Phosphatase 52 unknown) (unknown) (no (unknown) (unknown) Alkaline (units (unkno wn) date) Phosphatase unknown) (unknown) (no (unknown) (unknown) All other (units (unkn own) date) systems reviewed unknown) with the patient and are negative unless otherwise (unknown) (no (unknown) (unknown) Allergies (units (unkn own) date) unknown) (unknown) (no (unknown) (unknown) Allergy/AdvReac (units (unknown) date) Type Severity unknown) Reaction Status Date / Time (unknown) (no (unknown) (unknown) Anesthesia (units (unk nown) date) unknown) (unknown) (no (unknown) (unknown) Assessment + (units (u nknown) date) Plan narrative: unknown) (unknown) (no (unknown) (unknown) Assessment + (units (u nknown) date) Plan unknown) (unknown) (no (unknown) (unknown) BUN 17 (units (unkno wn) date) unknown) (unknown) (no (unknown) (unknown) BUN (units (unkno wn) date) unknown) (unknown) (no (unknown) (unknown) BUN/Creatinine (units (unknown) date) Ratio 29.8 H unknown) (unknown) (no (unknown) (unknown) BUN/Creatinine (units (unknown) date) Ratio unknown) (unknown) (no (unknown) (unknown) Baso # (Auto) (units ( unknown) date) 100 unknown) (unknown) (no (unknown) (unknown) Baso # (Auto) (units ( unknown) date) unknown) (unknown) (no (unknown) (unknown) Baso % (Auto) (units ( unknown) date) 0.9 unknown) (unknown) (no (unknown) (unknown) Baso % (Auto) (units ( unknown) date) unknown) (unknown) (no (unknown) (unknown) Been Physically (units (unknown) date) Hurt or No unknown) (unknown) (no (unknown) (unknown) Benign essential (units (unknown) date) HTN unknown) (unknown) (no (unknown) (unknown) Blood Pressure (units (unknown) date) 133/70 140/73 unknown) (unknown) (no (unknown) (unknown) Blood Pressure (units (unknown) date) 136/73 145/73 H unknown) (unknown) (no (unknown) (unknown) Blood Pressure (units (unknown) date) 151/80 H unknown) (unknown) (no (unknown) (unknown) Blood Pressure (units (unknown) date) 153/100 H 164/89 unknown) H (unknown) (no (unknown) (unknown) Blood Pressure (units (unknown) date) 153/74 H unknown) (unknown) (no (unknown) (unknown) Blood Pressure (units (unknown) date) 160/81 H unknown) (unknown) (no (unknown) (unknown) Blood Pressure (units (unknown) date) 162/79 H unknown) (unknown) (no (unknown) (unknown) Blood Pressure (units (unknown) date) 162/82 H unknown) (unknown) (no (unknown) (unknown) Blood Pressure (units (unknown) date) 162/83 H unknown) (unknown) (no (unknown) (unknown) Blood Pressure (units (unknown) date) 165/82 H 164/84 H unknown) (unknown) (no (unknown) (unknown) Blood Pressure (units (unknown) date) 169/91 H unknown) (unknown) (no (unknown) (unknown) Blood Pressure (units (unknown) date) 178/83 H 147/70 H unknown) (unknown) (no (unknown) (unknown) Blood Pressure (units (unknown) date) 186/84 H 153/100 unknown) H (unknown) (no (unknown) (unknown) Blood Pressure (units (unknown) date) unknown) (unknown) (no (unknown) (unknown) CK-MB (CK-2) Rel (units (unknown) date) Index TNP unknown) (unknown) (no (unknown) (unknown) CK-MB (CK-2) TNP (units (unknown) date) unknown) (unknown) (no (unknown) (unknown) COVID negative. (units (unknown) date) unknown) (unknown) (no (unknown) (unknown) CV: regular rate (units (unknown) date) and rhythm, no unknown) murmurs (unknown) (no (unknown) (unknown) Calcium 10.0 (units (u nknown) date) unknown) (unknown) (no (unknown) (unknown) Calcium (units (unkno wn) date) unknown) (unknown) (no (unknown) (unknown) Carbon Dioxide (units (unknown) date) 26 unknown) (unknown) (no (unknown) (unknown) Carbon Dioxide (units (unknown) date) unknown) (unknown) (no (unknown) (unknown) Chief complaint: (units (unknown) date) heart problems unknown) sent by Dr. Holder (unknown) (no (unknown) (unknown) Chloride 102 (units (u nknown) date) unknown) (unknown) (no (unknown) (unknown) Chloride (units (unkno wn) date) unknown) (unknown) (no (unknown) (unknown) Chronic back (units (u nknown) date) pain unknown) (unknown) (no (unknown) (unknown) Code status is . (units (unknown) date) unknown) (unknown) (no (unknown) (unknown) Creatinine 0.57 (units (unknown) date) unknown) (unknown) (no (unknown) (unknown) Creatinine (units (unk nown) date) unknown) (unknown) (no (unknown) (unknown) Critical Care (units ( unknown) date) time: unknown) (unknown) (no (unknown) (unknown) : 1935 (units (unknown) date) Acct:[id number] unknown) (unknown) (no (unknown) (unknown) DVT prophylaxis (units (unknown) date) with Lovenox. unknown) (unknown) (no (unknown) (unknown) Date Patient (units (u nknown) date) Seen: 09/28/22 unknown) (unknown) (no (unknown) (unknown) Date of Service: (units (unknown) date) 09/28/22 unknown) (unknown) (no (unknown) (unknown) EXT: warm and (units ( unknown) date) well perfused unknown) with no edema (unknown) (no (unknown) (unknown) Environment (units (un known) date) unknown) (unknown) (no (unknown) (unknown) Eos # (Auto) 500 (units (unknown) date) H unknown) (unknown) (no (unknown) (unknown) Eos # (Auto) (units (u nknown) date) unknown) (unknown) (no (unknown) (unknown) Eos % (Auto) 3.5 (units (unknown) date) unknown) (unknown) (no (unknown) (unknown) Eos % (Auto) (units (u nknown) date) unknown) (unknown) (no (unknown) (unknown) Estimated GFR > (units (unknown) date) 60 unknown) (unknown) (no (unknown) (unknown) Estimated GFR (units ( unknown) date) unknown) (unknown) (no (unknown) (unknown) Exam Narrative: (units (unknown) date) unknown) (unknown) (no (unknown) (unknown) Exam (units (unkno wn) date) unknown) (unknown) (no (unknown) (unknown) Family + Social (units (unknown) date) History unknown) (unknown) (no (unknown) (unknown) Feels Safe in (units ( unknown) date) Current Yes unknown) (unknown) (no (unknown) (unknown) GEN: no acute (units ( unknown) date) distress unknown) (unknown) (no (unknown) (unknown) GERD (units (unkno wn) date) (gastroesophageal unknown) reflux disease) (unknown) (no (unknown) (unknown) Globulin 4.5 H (units (unknown) date) unknown) (unknown) (no (unknown) (unknown) Globulin (units (unkno wn) date) unknown) (unknown) (no (unknown) (unknown) Glucose 174 H (units ( unknown) date) unknown) (unknown) (no (unknown) (unknown) Glucose (units (unkno wn) date) unknown) (unknown) (no (unknown) (unknown) HEENT: moist (units (u nknown) date) mucous membranes, unknown) PERRL (unknown) (no (unknown) (unknown) Hct 36.2 (units (unkno wn) date) unknown) (unknown) (no (unknown) (unknown) Hct (units (unkno wn) date) unknown) (unknown) (no (unknown) (unknown) Hearing loss (units (u nknown) date) unknown) (unknown) (no (unknown) (unknown) Hgb 12.2 (units (unkno wn) date) unknown) (unknown) (no (unknown) (unknown) Hgb (units (unkno wn) date) unknown) (unknown) (no (unknown) (unknown) History + (units (unkn own) date) Physical Report unknown) (unknown) (no (unknown) (unknown) History of (units (unk nown) date) Present Illness unknown) (unknown) (no (unknown) (unknown) History of total (units (unknown) date) hip replacement unknown) (unknown) (no (unknown) (unknown) History of (units (unk nown) date) urinary unknown) incontinence (unknown) (no (unknown) (unknown) History (units (unkno wn) date) unknown) (unknown) (no (unknown) (unknown) Home Medications (units (unknown) date) and Allergies unknown) (unknown) (no (unknown) (unknown) Home Medications (units (unknown) date) unknown) (unknown) (no (unknown) (unknown) I have reviewed (units (unknown) date) home meds and unknown) used all available resources to reconcile the home (unknown) (no (unknown) (unknown) I spent a total (units (unknown) date) of [] minutes of unknown) critical care time on this patient's care (unknown) (no (unknown) (unknown) INHIBITOR] (units (unk nown) date) unknown) (unknown) (no (unknown) (unknown) INR 1.0 (units (unkno wn) date) unknown) (unknown) (no (unknown) (unknown) INR (units (unkno wn) date) unknown) (unknown) (no (unknown) (unknown) Inhibitor ACHES (units (unknown) date) AND unknown) (unknown) (no (unknown) (unknown) [facility] (units (unknown) date) [address] unknown) [place] [address] (unknown) (no (unknown) (unknown) Laboratory (units (unk nown) date) Results - last 24 unknown) hr (unknown) (no (unknown) (unknown) Labs (units (unkno wn) date) unknown) (unknown) (no (unknown) (unknown) Labs: (units (unkno wn) date) unknown) (unknown) (no (unknown) (unknown) Lipase 52 (units (unkn own) date) unknown) (unknown) (no (unknown) (unknown) Lipase (units (unkno wn) date) unknown) (unknown) (no (unknown) (unknown) Lymph # (Auto) (units (unknown) date) 2000 unknown) (unknown) (no (unknown) (unknown) Lymph # (Auto) (units (unknown) date) unknown) (unknown) (no (unknown) (unknown) Lymph % (Auto) (units (unknown) date) 15.3 L unknown) (unknown) (no (unknown) (unknown) Lymph % (Auto) (units (unknown) date) unknown) (unknown) (no (unknown) (unknown) [id number] (units (unk nown) date) unknown) (unknown) (no (unknown) (unknown) MCH 31.2 (units (unkno wn) date) unknown) (unknown) (no (unknown) (unknown) MCH (units (unkno wn) date) unknown) (unknown) (no (unknown) (unknown) MCHC 33.7 (units (unkn own) date) unknown) (unknown) (no (unknown) (unknown) MCHC (units (unkno wn) date) unknown) (unknown) (no (unknown) (unknown) MCV 92.5 (units (unkno wn) date) unknown) (unknown) (no (unknown) (unknown) MCV (units (unkno wn) date) unknown) (unknown) (no (unknown) (unknown) Magnesium 1.7 (units ( unknown) date) unknown) (unknown) (no (unknown) (unknown) Magnesium (units (unkn own) date) unknown) (unknown) (no (unknown) (unknown) Medical History (units (unknown) date) (Updated 09/28/22 unknown) @ 15:50 by Chad Blanco MD) (unknown) (no (unknown) (unknown) Medication (units (unk nown) date) Instructions unknown) Recorded Confirmed Type (unknown) (no (unknown) (unknown) Meds (units (unkno wn) date) unknown) (unknown) (no (unknown) (unknown) [place] # (Auto) (units ( unknown) date) 1000 H unknown) (unknown) (no (unknown) (unknown) [place] # (Auto) (units ( unknown) date) unknown) (unknown) (no (unknown) (unknown) [place] % (Auto) (units ( unknown) date) 7.8 unknown) (unknown) (no (unknown) (unknown) [place] % (Auto) (units ( unknown) date) unknown) (unknown) (no (unknown) (unknown) NECK: trachea (units ( unknown) date) midline, no JVD unknown) (unknown) (no (unknown) (unknown) NEURO: awake, (units ( unknown) date) alert, oriented, unknown) no focal deficits (unknown) (no (unknown) (unknown) Narrative (units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 unknown) (unknown) (no date) (unknown) (unknown) YELLOW (units (unkn own) unknown) (unknown) (no date) (unknown) (unknown) YELLOW (units (unkn own) unknown) Result panel 297 (unknown) (no date) (unknown) (unknown) <=1.005 (units (unkn own) unknown) (unknown) (no date) (unknown) (unknown) 0-1/HPF (units (unkn own) unknown) (unknown) (no date) (unknown) (unknown) 0.2 e.u./dl (unkn own) (unknown) (no date) (unknown) (unknown) 1-5 /HPF (units (unkn own) unknown) (unknown) (no date) (unknown) (unknown) 6.5 (units (unkn own) unknown) (unknown) (no date) (unknown) (unknown) CLEAR (units (unkn own) unknown) (unknown) (no date) (unknown) (unknown) Cult Not (units (unkn own) Indicated unknown) (unknown) (no date) (unknown) (unknown) NEGATIVE (units (unkn own) unknown) (unknown) (no date) (unknown) (unknown) NEGATIVE g/dl (unkn own) (unknown) (no date) (unknown) (unknown) None Seen (units (unk nown) unknown) (unknown) (no date) (unknown) (unknown) TRACE (units (unkn own) unknown) (unknown) (no date) (unknown) (unknown) YELLOW (units (unkn own) unknown) (unknown) (no date) (unknown) (unknown) YELLOW (units (unkn own) unknown) Result panel 298 (unknown) (no date) (unknown) (unknown) 1.2 % (unkn own) (unknown) (no date) (unknown) (unknown) 10.4 x10 3/ul (unkn own) (unknown) (no date) (unknown) (unknown) 10.6 g/dl (unkn own) (unknown) (no date) (unknown) (unknown) 100 /ul (unkn own) (unknown) (no date) (unknown) (unknown) 14.7 % (unkn own) (unknown) (no date) (unknown) (unknown) 15.6 % (unkn own) (unknown) (no date) (unknown) (unknown) 1600 /ul (unkn own) (unknown) (no date) (unknown) (unknown) 226 x10 3/ul (unkn own) (unknown) (no date) (unknown) (unknown) 3.37 x10 6/ul (unkn own) (unknown) (no date) (unknown) (unknown) 31.2 % (unkn own) (unknown) (no date) (unknown) (unknown) 31.4 pg (unkn own) (unknown) (no date) (unknown) (unknown) 33.9 % (unkn own) (unknown) (no date) (unknown) (unknown) 5.0 % (unkn own) (unknown) (no date) (unknown) (unknown) 500 /ul (unkn own) (unknown) (no date) (unknown) (unknown) 7.6 % (unkn own) (unknown) (no date) (unknown) (unknown) 70.6 % (unkn own) (unknown) (no date) (unknown) (unknown) 7400 /ul (unkn own) (unknown) (no date) (unknown) (unknown) 800 /ul (unkn own) (unknown) (no date) (unknown) (unknown) 92.6 fl (unkn own) Result panel 299 (unknown) (no date) (unknown) (unknown) 2.2 mg/dl (unkn own) Result panel 300 (unknown) (no date) (unknown) (unknown) > 60 ml/min (unkn own) (unknown) (no date) (unknown) (unknown) > 60 ml/min (unkn own) (unknown) (no date) (unknown) (unknown) 0.62 mg/dl (unkn own) (unknown) (no date) (unknown) (unknown) 102 mmol/l (unkn own) (unknown) (no date) (unknown) (unknown) 137 mmol/l (unkn own) (unknown) (no date) (unknown) (unknown) 155 mg/dl (unkn own) (unknown) (no date) (unknown) (unknown) 155 mg/dl (unkn own) (unknown) (no date) (unknown) (unknown) 17 mg/dl (unkn own) (unknown) (no date) (unknown) (unknown) 27.4 (units unknown) (unknown) (unknown) (no date) (unknown) (unknown) 28 mmol/l (unkn own) (unknown) (no date) (unknown) (unknown) 4.1 mmol/l (unkn own) (unknown) (no date) (unknown) (unknown) 9.0 mg/dl (unkn own) Result panel 301 (unknown) (no date) (unknown) (unknown) < 0.012 ng/ml (unkn own) (unknown) (no date) (unknown) (unknown) < 0.012 ng/ml (unkn own) (unknown) (no date) (unknown) (unknown) 2.2 mg/dl (unkn own) Result panel 302 (unknown) (no (unknown) (unknown) (no value) (units (unk nown) date) unknown) (unknown) (no (unknown) (unknown) # GERD, chronic (units (unknown) date) unknown) (unknown) (no (unknown) (unknown) # atypical chest (units (unknown) date) pain unknown) (unknown) (no (unknown) (unknown) # chronic back (units (unknown) date) pain unknown) (unknown) (no (unknown) (unknown) # history of SVT (units (unknown) date) unknown) (unknown) (no (unknown) (unknown) # hypertension, (units (unknown) date) chronic unknown) (unknown) (no (unknown) (unknown) # 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 (unknown) (no (unknown) (unknown) # 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, chronic unknown) (unknown) (no (unknown) (unknown) (DME) oxygen (units (u nknown) date) concentrator unknown) (unknown) (no (unknown) (unknown) (DME) oxygen (units (u nknown) date) unknown) (unknown) (no (unknown) (unknown) (past 8 hours): (units (unknown) date) unknown) (unknown) (no (unknown) (unknown) -CT chest in ED (units (unknown) date) consistent with unknown) pulm fibrosis and largely unchanged from prior (unknown) (no (unknown) (unknown) -PCP was going (units (unknown) date) to start on unknown) metoprolol (unknown) (no (unknown) (unknown) -check A1c (units (unk nown) date) unknown) (unknown) (no (unknown) (unknown) -check lipids, (units (unknown) date) TSH,? A1c and mag unknown) (unknown) (no (unknown) (unknown) -continue [place] (units (unknown) date) as needed unknown) (unknown) (no (unknown) (unknown) -continue PPI (units ( unknown) date) unknown) (unknown) (no (unknown) (unknown) -continue home (units (unknown) date) losartan 100 mg unknown) daily (unknown) (no (unknown) (unknown) -currently on (units ( unknown) date) baseline 2L O2 unknown) (unknown) (no (unknown) (unknown) -echo ordered (units ( unknown) date) unknown) (unknown) (no (unknown) (unknown) -heart score of (units (unknown) date) 4 unknown) (unknown) (no (unknown) (unknown) -hold home (units (unk nown) date) glimepiride unknown) (unknown) (no (unknown) (unknown) -low-dose (units (unkn own) date) sliding scale unknown) insulin (unknown) (no (unknown) (unknown) -nuclear stress (units (unknown) date) test ordered, unknown) cannot be completed until 09/30 due to availability (unknown) (no (unknown) (unknown) -start aspirin (units (unknown) date) 81 mg daily unknown) (unknown) (no (unknown) (unknown) -start metop XL (units (unknown) date) 25mg daily unknown) (unknown) (no (unknown) (unknown) -tele as above (units (unknown) date) unknown) (unknown) (no (unknown) (unknown) -tele (units (unkno wn) date) unknown) (unknown) (no (unknown) (unknown) -worse with deep (units (unknown) date) breaths unknown) (unknown) (no (unknown) (unknown) 0.5 - 1 tab PO (units (unknown) date) BEDTIME PRN unknown) (Reason: pain) Qty: 30 0RF (unknown) (no (unknown) (unknown) 00:00 09/29/22 (units (unknown) date) unknown) (unknown) (no (unknown) (unknown) 09/28/22 (units (unkno wn) date) 09/28/22 09/28/22 unknown) (unknown) (no (unknown) (unknown) 09/28/22 17:50 (units (unknown) date) unknown) (unknown) (no (unknown) (unknown) 09/29/22 (units (unkno wn) date) 09/29/22 09/29/22 unknown) (unknown) (no (unknown) (unknown) 09/29/22 04:19 (units (unknown) date) unknown) (unknown) (no (unknown) (unknown) 09/29/22 (units (unkno wn) date) unknown) (unknown) (no (unknown) (unknown) 03:23 09/29/22 (units (unknown) date) unknown) (unknown) (no (unknown) (unknown) 04:19 04:19 (units (un known) date) 04:19 unknown) (unknown) (no (unknown) (unknown) 07:50 (units (unkno wn) date) unknown) (unknown) (no (unknown) (unknown) 1 mg PO DAILY (units ( unknown) date) Qty: 0 unknown) (unknown) (no (unknown) (unknown) 100 mg PO DAILY (units (unknown) date) Qty: 90 3RF unknown) (unknown) (no (unknown) (unknown) 11:50 11:50 (units (un known) date) 11:50 unknown) (unknown) (no (unknown) (unknown) 11:50 12:55 (units (un known) date) 14:20 unknown) (unknown) (no (unknown) (unknown) 14:20 14:20 (units (un known) date) 20:01 unknown) (unknown) (no (unknown) (unknown) 2L by NC with (units ( unknown) date) activity and unknown) while sleeping room air SaO2 95% at rest,room air (unknown) (no (unknown) (unknown) 40 mg PO DAILY (units (unknown) date) unknown) (unknown) (no (unknown) (unknown) 500 mg PO Q6HP (units (unknown) date) PRN (Reason: unknown) pain) Qty: 0 (unknown) (no (unknown) (unknown) 70 mg PO QWEEK (units (unknown) date) unknown) (unknown) (no (unknown) (unknown) ABD: soft, (units (unk nown) date) nontender, unknown) nondistended, no organomegaly (unknown) (no (unknown) (unknown) ALT 21 (units (unkno wn) date) unknown) (unknown) (no (unknown) (unknown) ALT (units (unkno wn) date) unknown) (unknown) (no (unknown) (unknown) APTT 29 (units (unkno wn) date) unknown) (unknown) (no (unknown) (unknown) APTT (units (unkno wn) date) unknown) (unknown) (no (unknown) (unknown) AST 25 (units (unkno wn) date) unknown) (unknown) (no (unknown) (unknown) AST (units (unkno wn) date) unknown) (unknown) (no (unknown) (unknown) Age/Sex: 86 / F (units (unknown) date) unknown) (unknown) (no (unknown) (unknown) Albumin 4.4 (units (un known) date) unknown) (unknown) (no (unknown) (unknown) Albumin (units (unkno wn) date) unknown) (unknown) (no (unknown) (unknown) Albumin/Globulin (units (unknown) date) Ratio 1.0 unknown) (unknown) (no (unknown) (unknown) Albumin/Globulin (units (unknown) date) Ratio unknown) (unknown) (no (unknown) (unknown) Irma Holder DO (units (unknown) date) unknown) (unknown) (no (unknown) (unknown) Alkaline (units (unkno wn) date) Phosphatase 52 unknown) (unknown) (no (unknown) (unknown) Alkaline (units (unkno wn) date) Phosphatase unknown) (unknown) (no (unknown) (unknown) Anesthesia (units (unk nown) date) unknown) (unknown) (no (unknown) (unknown) Attending (units (unkn own) date) Provider: unknown) Karel Iraheta (unknown) (no (unknown) (unknown) BUN 17 (units (unkno wn) date) unknown) (unknown) (no (unknown) (unknown) BUN (units (unkno wn) date) unknown) (unknown) (no (unknown) (unknown) BUN/Creatinine (units (unknown) date) Ratio 27.4 H unknown) (unknown) (no (unknown) (unknown) BUN/Creatinine (units (unknown) date) Ratio 29.8 H unknown) (unknown) (no (unknown) (unknown) BUN/Creatinine (units (unknown) date) Ratio unknown) (unknown) (no (unknown) (unknown) Baso # (Auto) (units ( unknown) date) 100 unknown) (unknown) (no (unknown) (unknown) Baso # (Auto) (units ( unknown) date) unknown) (unknown) (no (unknown) (unknown) Baso % (Auto) (units ( unknown) date) 0.9 unknown) (unknown) (no (unknown) (unknown) Baso % (Auto) (units ( unknown) date) 1.2 unknown) (unknown) (no (unknown) (unknown) Baso % (Auto) (units ( unknown) date) unknown) (unknown) (no (unknown) (unknown) Benign essential (units (unknown) date) HTN unknown) (unknown) (no (unknown) (unknown) Blood Pressure (units (unknown) date) 155/74 H 125/57 L unknown) (unknown) (no (unknown) (unknown) CK-MB (CK-2) Rel (units (unknown) date) Index TNP unknown) (unknown) (no (unknown) (unknown) CK-MB (CK-2) Rel (units (unknown) date) Index unknown) (unknown) (no (unknown) (unknown) CK-MB (CK-2) TNP (units (unknown) date) unknown) (unknown) (no (unknown) (unknown) CK-MB (CK-2) (units (u nknown) date) unknown) (unknown) (no (unknown) (unknown) CT (units (unkno wn) date) unknown) (unknown) (no (unknown) (unknown) CV: regular rate (units (unknown) date) and rhythm, no unknown) murmurs (unknown) (no (unknown) (unknown) Calcium 10.0 (units (u nknown) date) unknown) (unknown) (no (unknown) (unknown) Calcium 9.0 (units (un known) date) unknown) (unknown) (no (unknown) (unknown) Calcium (units (unkno wn) date) unknown) (unknown) (no (unknown) (unknown) Carbon Dioxide (units (unknown) date) 26 unknown) (unknown) (no (unknown) (unknown) Carbon Dioxide (units (unknown) date) 28 unknown) (unknown) (no (unknown) (unknown) Carbon Dioxide (units (unknown) date) unknown) (unknown) (no (unknown) (unknown) Chief complaint: (units (unknown) date) heart problems unknown) sent by Dr. Holder (unknown) (no (unknown) (unknown) Chloride 102 (units (u nknown) date) unknown) (unknown) (no (unknown) (unknown) Chloride (units (unkno wn) date) unknown) (unknown) (no (unknown) (unknown) Cholesterol 193 (units (unknown) date) unknown) (unknown) (no (unknown) (unknown) Cholesterol (units (un known) date) unknown) (unknown) (no (unknown) (unknown) Chronic back (units (u nknown) date) pain unknown) (unknown) (no (unknown) (unknown) Continued (units (unkn own) date) unknown) (unknown) (no (unknown) (unknown) Creatinine 0.57 (units (unknown) date) unknown) (unknown) (no (unknown) (unknown) Creatinine 0.62 (units (unknown) date) unknown) (unknown) (no (unknown) (unknown) Creatinine (units (unk nown) date) unknown) (unknown) (no (unknown) (unknown) : 1935 (units (unknown) date) Acct:[id number] unknown) (unknown) (no (unknown) (unknown) Date Patient (units (u nknown) date) Seen: 09/29/22 unknown) (unknown) (no (unknown) (unknown) Date of Service: (units (unknown) date) 09/28/22 unknown) (unknown) (no (unknown) (unknown) Date of (units (unkno wn) date) admission: unknown) (unknown) (no (unknown) (unknown) Deep Vein (units (unkn own) date) Thrombosis/Pulmon unknown) shay Embolism Present on Admission: No (unknown) (no (unknown) (unknown) Discharge Data (units (unknown) date) unknown) (unknown) (no (unknown) (unknown) Discharge Date: (units (unknown) date) 09/29/22 unknown) (unknown) (no (unknown) (unknown) Discharge (units (unkn own) date) Diagnosis: unknown) (unknown) (no (unknown) (unknown) Discharge Plan (units (unknown) date) unknown) (unknown) (no (unknown) (unknown) Discharge (units (unkn own) date) Providers unknown) (unknown) (no (unknown) (unknown) Discharge (units (unkn own) date) Summary unknown) (unknown) (no (unknown) (unknown) Discharge orders (units (unknown) date) + Medications unknown) (unknown) (no (unknown) (unknown) Discharge (units (unkn own) date) provider: unknown) (unknown) (no (unknown) (unknown) EXT: warm and (units ( unknown) date) well perfused unknown) with no edema (unknown) (no (unknown) (unknown) Eos # (Auto) 500 (units (unknown) date) H unknown) (unknown) (no (unknown) (unknown) Eos # (Auto) (units (u nknown) date) unknown) (unknown) (no (unknown) (unknown) Eos % (Auto) 3.5 (units (unknown) date) unknown) (unknown) (no (unknown) (unknown) Eos % (Auto) 5.0 (units (unknown) date) H unknown) (unknown) (no (unknown) (unknown) Eos % (Auto) (units (u nknown) date) unknown) (unknown) (no (unknown) (unknown) Estimated GFR > (units (unknown) date) 60 unknown) (unknown) (no (unknown) (unknown) Estimated GFR (units ( unknown) date) unknown) (unknown) (no (unknown) (unknown) Exam Narrative: (units (unknown) date) unknown) (unknown) (no (unknown) (unknown) Exam (units (unkno wn) date) unknown) (unknown) (no (unknown) (unknown) Follow (units (unkno wn) date) up/Referrals: unknown) (unknown) (no (unknown) (unknown) Fraction of (units (un known) date) Inspired Oxygen unknown) 28 (unknown) (no (unknown) (unknown) GEN: no acute (units ( unknown) date) distress, appears unknown) younger than stated age (unknown) (no (unknown) (unknown) GERD (units (unkno wn) date) (gastroesophageal unknown) reflux disease) (unknown) (no (unknown) (unknown) Globulin 4.5 H (units (unknown) date) unknown) (unknown) (no (unknown) (unknown) Globulin (units (unkno wn) date) unknown) (unknown) (no (unknown) (unknown) Glucose 155 H (units ( unknown) date) unknown) (unknown) (no (unknown) (unknown) Glucose 174 H (units ( unknown) date) unknown) (unknown) (no (unknown) (unknown) Glucose (units (unkno wn) date) unknown) (unknown) (no (unknown) (unknown) HDL Cholesterol (units (unknown) date) 51 unknown) (unknown) (no (unknown) (unknown) HDL Cholesterol (units (unknown) date) unknown) (unknown) (no (unknown) (unknown) HEENT: moist (units (u nknown) date) mucous membranes, unknown) PERRL (unknown) (no (unknown) (unknown) HTN, SVT, DM2, (units (unknown) date) and chronic back unknown) pain who presents with chest pain. Patient says (unknown) (no (unknown) (unknown) Hct 31.2 L (units (unk nown) date) unknown) (unknown) (no (unknown) (unknown) Hct 36.2 (units (unkno wn) date) unknown) (unknown) (no (unknown) (unknown) Hct (units (unkno wn) date) unknown) (unknown) (no (unknown) (unknown) Hearing loss (units (u nknown) date) unknown) (unknown) (no (unknown) (unknown) Hemoglobin A1c (units (unknown) date) 7.1 H unknown) (unknown) (no (unknown) (unknown) Hemoglobin A1c (units (unknown) date) unknown) (unknown) (no (unknown) (unknown) Hgb 10.6 L (units (unk nown) date) unknown) (unknown) (no (unknown) (unknown) Hgb 12.2 (units (unkno wn) date) unknown) (unknown) (no (unknown) (unknown) Hgb (units (unkno wn) date) unknown) (unknown) (no (unknown) (unknown) History of (units (unk nown) date) Present Illness unknown) (unknown) (no (unknown) (unknown) History of total (units (unknown) date) hip replacement unknown) (unknown) (no (unknown) (unknown) History of (units (unk nown) date) urinary unknown) incontinence (unknown) (no (unknown) (unknown) Hospital Course (units (unknown) date) unknown) (unknown) (no (unknown) (unknown) INR 1.0 (units (unkno wn) date) unknown) (unknown) (no (unknown) (unknown) INR (units (unkno wn) date) unknown) (unknown) (no (unknown) (unknown) [facility] (units (unknown) date) [address] unknown) [place] [address] (unknown) (no (unknown) (unknown) LDL Cholesterol, (units (unknown) date) Calc 125 H unknown) (unknown) (no (unknown) (unknown) LDL Cholesterol, (units (unknown) date) Calc unknown) (unknown) (no (unknown) (unknown) Laboratory (units (unk nown) date) Results - last 24 unknown) hr (unknown) (no (unknown) (unknown) Labs (units (unkno wn) date) unknown) (unknown) (no (unknown) (unknown) Labs: (units (unkno wn) date) unknown) (unknown) (no (unknown) (unknown) Lipase 52 (units (unkn own) date) unknown) (unknown) (no (unknown) (unknown) Lipase (units (unkno wn) date) unknown) (unknown) (no (unknown) (unknown) Lymph # (Auto) (units (unknown) date) 1600 unknown) (unknown) (no (unknown) (unknown) Lymph # (Auto) (units (unknown) date) 2000 unknown) (unknown) (no (unknown) (unknown) Lymph # (Auto) (units (unknown) date) unknown) (unknown) (no (unknown) (unknown) Lymph % (Auto) (units (unknown) date) 15.3 L unknown) (unknown) (no (unknown) (unknown) Lymph % (Auto) (units (unknown) date) 15.6 L unknown) (unknown) (no (unknown) (unknown) Lymph % (Auto) (units (unknown) date) unknown) (unknown) (no (unknown) (unknown) [id number] (units (unk nown) date) unknown) (unknown) (no (unknown) (unknown) MCH 31.2 (units (unkno wn) date) unknown) (unknown) (no (unknown) (unknown) MCH 31.4 (units (unkno wn) date) unknown) (unknown) (no (unknown) (unknown) MCH (units (unkno wn) date) unknown) (unknown) (no (unknown) (unknown) MCHC 33.7 (units (unkn own) date) unknown) (unknown) (no (unknown) (unknown) MCHC 33.9 (units (unkn own) date) unknown) (unknown) (no (unknown) (unknown) MCHC (units (unkno wn) date) unknown) (unknown) (no (unknown) (unknown) MCV 92.5 (units (unkno wn) date) unknown) (unknown) (no (unknown) (unknown) MCV 92.6 (units (unkno wn) date) unknown) (unknown) (no (unknown) (unknown) MCV (units (unkno wn) date) unknown) (unknown) (no (unknown) (unknown) Magnesium 1.7 (units ( unknown) date) unknown) (unknown) (no (unknown) (unknown) Magnesium 2.2 (units ( unknown) date) unknown) (unknown) (no (unknown) (unknown) Magnesium (units (unkn own) date) unknown) (unknown) (no (unknown) (unknown) Karel Iraheta, (units (unknown) date) DO unknown) (unknown) (no (unknown) (unknown) Medical History (units (unknown) date) (Updated 09/28/22 unknown) @ 15:50 by Chad Blanco MD) (unknown) (no (unknown) (unknown) [place] # (Auto) (units ( unknown) date) 1000 H unknown) (unknown) (no (unknown) (unknown) [place] # (Auto) (units ( unknown) date) 800 unknown) (unknown) (no (unknown) (unknown) [place] # (Auto) (units ( unknown) date) unknown) (unknown) (no (unknown) (unknown) [place] % (Auto) (units ( unknown) date) 7.6 unknown) (unknown) (no (unknown) (unknown) [place] % (Auto) (units ( unknown) date) 7.8 unknown) (unknown) (no (unknown) (unknown) [place] % (Auto) (units ( unknown) date) unknown) (unknown) (no (unknown) (unknown) NECK: trachea (units ( unknown) date) midline, no JVD unknown) (unknown) (no (unknown) (unknown) NEURO: awake, (units ( unknown) date) alert, oriented, unknown) no focal deficits (unknown) (no (unknown) (unknown) Narrative (units (unkn own) date) unknown) (unknown) (no (unknown) (unknown) Narrative: (units (unk nown) date) unknown) (unknown) (no (unknown) (unknown) Neut # (Auto) (units ( unknown) date) 7400 H unknown) (unknown) (no (unknown) (unknown) Neut # (Auto) (units ( unknown) date) 9400 H unknown) (unknown) (no (unknown) (unknown) Neut # (Auto) (units ( unknown) date) unknown) (unknown) (no (unknown) (unknown) Neut % (Auto) (units ( unknown) date) 70.6 unknown) (unknown) (no (unknown) (unknown) Neut % (Auto) (units ( unknown) date) 72.5 unknown) (unknown) (no (unknown) (unknown) Neut % (Auto) (units ( unknown) date) unknown) (unknown) (no (unknown) (unknown) Objective (units (unkn own) date) unknown) (unknown) (no (unknown) (unknown) Osteoarthritis (units (unknown) date) unknown) (unknown) (no (unknown) (unknown) Osteoporosis (units (u nknown) date) unknown) (unknown) (no (unknown) (unknown) Oxygen Delivery (units (unknown) date) Method Nasal unknown) Cannula (unknown) (no (unknown) (unknown) Oxygen Flow Rate (units (unknown) date) 2 2 2 unknown) (unknown) (no (unknown) (unknown) Oxygen Flow Rate (units (unknown) date) 2 unknown) (unknown) (no (unknown) (unknown) PFSH (units (unkno wn) date) unknown) (unknown) (no (unknown) (unknown) PT 11.4 (units (unkno wn) date) unknown) (unknown) (no (unknown) (unknown) PT (units (unkno wn) date) unknown) (unknown) (no (unknown) (unknown) PULM: clear (units (un known) date) bilaterally unknown) (unknown) (no (unknown) (unknown) Patient (units (unkno wn) date) Disposition: Home unknown) (unknown) (no (unknown) (unknown) Patient: (units (unkno wn) date) Rosita Devi unknown) L MR#: (unknown) (no (unknown) (unknown) Rosita Devi (units (unknown) date) is an 86yo F with unknown) 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, GERD, (unknown) (no (unknown) (unknown) Plt Count 226 (units ( unknown) date) unknown) (unknown) (no (unknown) (unknown) Plt Count 257 (units ( unknown) date) unknown) (unknown) (no (unknown) (unknown) Plt Count (units (unkn own) date) unknown) (unknown) (no (unknown) (unknown) Potassium 4.1 (units ( unknown) date) unknown) (unknown) (no (unknown) (unknown) Potassium (units (unkn own) date) unknown) (unknown) (no (unknown) (unknown) Prescriptions: (units (unknown) date) unknown) (unknown) (no (unknown) (unknown) Primary Care (units (u nknown) date) Provider: unknown) Irma Holder (unknown) (no (unknown) (unknown) Primary care (units (u nknown) date) physician: unknown) (unknown) (no (unknown) (unknown) Provider (units (unkno wn) date) Discharge unknown) Comment: You were admitted for chest pain which was worse (unknown) (no (unknown) (unknown) Provider (units (unkno wn) date) unknown) (unknown) (no (unknown) (unknown) Provider: (units (unkn own) date) Karel Iraheta unknown) D.O. (unknown) (no (unknown) (unknown) Pulmonary (units (unkn own) date) fibrosis unknown) (unknown) (no (unknown) (unknown) Pulse Oximetry (units (unknown) date) 96 96 95 unknown) (unknown) (no (unknown) (unknown) Pulse Rate 73 73 (units (unknown) date) 70 unknown) (unknown) (no (unknown) (unknown) Quality (units (unkno wn) date) unknown) (unknown) (no (unknown) (unknown) RBC 3.37 L (units (unk nown) date) unknown) (unknown) (no (unknown) (unknown) RBC 3.91 L (units (unk nown) date) unknown) (unknown) (no (unknown) (unknown) RBC (units (unkno wn) date) unknown) (unknown) (no (unknown) (unknown) RDW 14.7 (units (unkno wn) date) unknown) (unknown) (no (unknown) (unknown) RDW (units (unkno wn) date) unknown) (unknown) (no (unknown) (unknown) Respiratory Rate (units (unknown) date) 19 17 16 unknown) (unknown) (no (unknown) (unknown) Rx Instructions: (units (unknown) date) unknown) (unknown) (no (unknown) (unknown) SARS-CoV-2 (PCR) (units (unknown) date) Negative unknown) (unknown) (no (unknown) (unknown) SARS-CoV-2 (PCR) (units (unknown) date) unknown) (unknown) (no (unknown) (unknown) SVT (units (unkno wn) date) (supraventricular unknown) tachycardia) (unknown) (no (unknown) (unknown) SaO2 85%,while (units (unknown) date) walking SaO2 95% unknown) with 2L for pulmonary fibrosis (unknown) (no (unknown) (unknown) SaO2 w/ 2L O2 (units ( unknown) date) 95% unknown) (unknown) (no (unknown) (unknown) SaO2/FiO2 Ratio (units (unknown) date) 339 unknown) (unknown) (no (unknown) (unknown) Irma Holder DO (units (unknown) date) [Primary Care unknown) Provider] - 1 Week (unknown) (no (unknown) (unknown) See Rx (units (unkno wn) date) Instructions unknown) .Route .MEDSUPPLY Qty: 1 0RF (unknown) (no (unknown) (unknown) Shoulder pain (units ( unknown) date) unknown) (unknown) (no (unknown) (unknown) Signed By: (units (unk nown) date) unknown) (unknown) (no (unknown) (unknown) Sleep apnea (units (un known) date) unknown) (unknown) (no (unknown) (unknown) Smoking Status: (units (unknown) date) Former smoker unknown) (unknown) (no (unknown) (unknown) Social History (units (unknown) date) unknown) (unknown) (no (unknown) (unknown) Sodium 136 L (units (u nknown) date) unknown) (unknown) (no (unknown) (unknown) Sodium 137 (units (unk nown) date) unknown) (unknown) (no (unknown) (unknown) Sodium (units (unkno wn) date) unknown) (unknown) (no (unknown) (unknown) Stand Alone (units (un known) date) Forms: Patient unknown) Portal/API, Stroke Signs + Symptoms (unknown) (no (unknown) (unknown) Summary (units (unkno wn) date) unknown) (unknown) (no (unknown) (unknown) Surgical History (units (unknown) date) (Updated 06/14/22 unknown) @ 22:24 by Sherita Carreon) (unknown) (no (unknown) (unknown) TSH 1.35 (units (unkno wn) date) unknown) (unknown) (no (unknown) (unknown) TSH (units (unkno wn) date) unknown) (unknown) (no (unknown) (unknown) Temperature 97.6 (units (unknown) date) F 96.7 F L unknown) (unknown) (no (unknown) (unknown) Time Spent with (units (unknown) date) Patient unknown) (unknown) (no (unknown) (unknown) Time spent: (units (un known) date) Greater than 30 unknown) minutes (unknown) (no (unknown) (unknown) Total Bilirubin (units (unknown) date) 0.5 unknown) (unknown) (no (unknown) (unknown) Total Bilirubin (units (unknown) date) unknown) (unknown) (no (unknown) (unknown) Total Creatine (units (unknown) date) Kinase 48 unknown) (unknown) (no (unknown) (unknown) Total Creatine (units (unknown) date) Kinase 51 unknown) (unknown) (no (unknown) (unknown) Total Creatine (units (unknown) date) Kinase unknown) (unknown) (no (unknown) (unknown) Total Protein (units ( unknown) date) 8.9 H unknown) (unknown) (no (unknown) (unknown) Total Protein (units ( unknown) date) unknown) (unknown) (no (unknown) (unknown) Triglycerides 87 (units (unknown) date) unknown) (unknown) (no (unknown) (unknown) Triglycerides (units ( unknown) date) unknown) (unknown) (no (unknown) (unknown) Troponin I < (units (u nknown) date) 0.012 unknown) (unknown) (no (unknown) (unknown) Troponin I (units (unk nown) date) unknown) (unknown) (no (unknown) (unknown) 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 Cult unknown) not indicated (unknown) (no (unknown) (unknown) Ur Culture (units (unk nown) date) Indicated? unknown) (unknown) (no (unknown) (unknown) Ur Leukocyte (units (u nknown) date) Esterase Trace H unknown) (unknown) (no (unknown) (unknown) Ur Leukocyte (units (u nknown) date) Esterase unknown) (unknown) (no (unknown) (unknown) Ur Specific (units (un known) date) [place] <=1.005 unknown) (unknown) (no (unknown) (unknown) Ur Specific (units (un known) date) [place] unknown) (unknown) (no (unknown) (unknown) Ur Squamous (units (un known) date) Epith Cells 1-5 unknown) /hpf (unknown) (no (unknown) (unknown) Ur Squamous (units (un known) date) Epith Cells unknown) (unknown) (no (unknown) (unknown) Urine Appearance (units (unknown) date) Clear unknown) (unknown) (no (unknown) (unknown) Urine Appearance (units (unknown) date) unknown) (unknown) (no (unknown) (unknown) Urine Bacteria (units (unknown) date) None seen unknown) (unknown) (no (unknown) (unknown) Urine Bacteria (units (unknown) date) unknown) (unknown) (no (unknown) (unknown) Urine Bilirubin (units (unknown) date) Negative unknown) (unknown) (no (unknown) (unknown) Urine Bilirubin (units (unknown) date) unknown) (unknown) (no (unknown) (unknown) Urine Color (units (un known) date) Yellow unknown) (unknown) (no (unknown) (unknown) Urine Color (units (un known) date) unknown) (unknown) (no (unknown) (unknown) Urine Glucose (units ( unknown) date) (UA) Negative unknown) (unknown) (no (unknown) (unknown) Urine Glucose (units ( unknown) date) (UA) unknown) (unknown) (no (unknown) (unknown) Urine Ketones (units ( unknown) date) Negative unknown) (unknown) (no (unknown) (unknown) Urine Ketones (units ( unknown) date) unknown) (unknown) (no (unknown) (unknown) Urine Nitrate (units ( unknown) date) Negative unknown) (unknown) (no (unknown) (unknown) Urine Nitrate (units ( unknown) date) unknown) (unknown) (no (unknown) (unknown) Urine Occult (units (u nknown) date) Blood Negative unknown) (unknown) (no (unknown) (unknown) Urine Occult (units (u nknown) date) Blood unknown) (unknown) (no (unknown) (unknown) Urine Protein (units ( unknown) date) Negative unknown) (unknown) (no (unknown) (unknown) Urine Protein (units ( unknown) date) unknown) (unknown) (no (unknown) (unknown) Urine RBC (units (unkn own) date) 0-1/hpf unknown) (unknown) (no (unknown) (unknown) Urine RBC (units (unkn own) date) unknown) (unknown) (no (unknown) (unknown) Urine (units (unkno wn) date) Urobilinogen 0.2 unknown) (unknown) (no (unknown) (unknown) Urine (units (unkno wn) date) Urobilinogen unknown) (unknown) (no (unknown) (unknown) Urine WBC (units (unkn own) date) 0-1/hpf unknown) (unknown) (no (unknown) (unknown) Urine WBC (units (unkn own) date) unknown) (unknown) (no (unknown) (unknown) Urine pH 6.5 (units (u nknown) date) unknown) (unknown) (no (unknown) (unknown) Urine pH (units (unkno wn) date) unknown) (unknown) (no (unknown) (unknown) VTE (units (unkno wn) date) unknown) (unknown) (no (unknown) (unknown) Visit (units (unkno wn) date) Report/Discharge unknown) Packet (unknown) (no (unknown) (unknown) Vital Signs (units (un known) date) unknown) (unknown) (no (unknown) (unknown) WBC 10.4 (units (unkno wn) date) unknown) (unknown) (no (unknown) (unknown) WBC 12.9 H (units (unk nown) date) unknown) (unknown) (no (unknown) (unknown) WBC (units (unkno wn) date) unknown) (unknown) (no (unknown) (unknown) [Embedded Image (units (unknown) date) Not Available] unknown) (unknown) (no (unknown) (unknown) acetaminophen (units ( unknown) date) [Tylenol Extra unknown) Strength] 500 MG tablet (unknown) (no (unknown) (unknown) alcohol intake: (units (unknown) date) current unknown) (unknown) (no (unknown) (unknown) alendronate (units (un known) date) [Fosamax] 70 mg unknown) tablet (unknown) (no (unknown) (unknown) current chest (units ( unknown) date) pain, NV, abd unknown) pain or diarrhea. (unknown) (no (unknown) (unknown) dx: Pulmonary (units ( unknown) date) Fibrosis unknown) (unknown) (no (unknown) (unknown) especially while (units (unknown) date) walking her dog. unknown) She says she had a full cardiac workup (unknown) (no (unknown) (unknown) glimepiride (units (un known) date) [Amaryl] 1 mg unknown) tablet (unknown) (no (unknown) (unknown) household (units (unkn own) date) members: spouse unknown) (unknown) (no (unknown) (unknown) hydrocodone-acet (units (unknown) date) aminophen 5-325 unknown) mg tablet (unknown) (no (unknown) (unknown) levels were (units (un known) date) normal. You unknown) elected not to stay for a stress test. (unknown) (no (unknown) (unknown) losartan 100 mg (units (unknown) date) tablet unknown) (unknown) (no (unknown) (unknown) oxygen (units (unkno wn) date) concentrator. 2L unknown) by NC with activity and while sleeping (unknown) (no (unknown) (unknown) pantoprazole 40 (units (unknown) date) mg tablet,delayed unknown) release (DR/EC) (unknown) (no (unknown) (unknown) recently (units (unkno wn) date) including stress unknown) test and echo which were reassuring. She denies (unknown) (no (unknown) (unknown) room air Sa02 (units ( unknown) date) 85% while walking unknown) (unknown) (no (unknown) (unknown) room air SaO2 (units ( unknown) date) 95% at rest unknown) (unknown) (no (unknown) (unknown) she developed (units ( unknown) date) heavy chest pain unknown) this morning. Worse with deep breaths. She came (unknown) (no (unknown) (unknown) to the ED (units (unkn own) date) because she was unknown) worried about her worsening SOB the past 6 months, (unknown) (no (unknown) (unknown) with deep (units (unkn own) date) breaths so likely unknown) related to your pulm fibrosis. 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 (unknown) (no (unknown) (unknown) # 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, chronic unknown) (unknown) (no (unknown) (unknown) (DME) oxygen (units (u nknown) date) concentrator unknown) (unknown) (no (unknown) (unknown) (DME) oxygen (units (u nknown) date) unknown) (unknown) (no (unknown) (unknown) (past 8 hours): (units (unknown) date) unknown) (unknown) (no (unknown) (unknown) -A1c 7.1% (units (unkn own) date) unknown) (unknown) (no (unknown) (unknown) -CT chest in ED (units (unknown) date) consistent with unknown) pulm fibrosis and largely unchanged from prior (unknown) (no (unknown) (unknown) -LDL 125, (units (unkn own) date) consider statin unknown) with career development 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 if warranted (unknown) (no (unknown) (unknown) -PCP was going (units (unknown) date) to start on unknown) metoprolol (unknown) (no (unknown) (unknown) -TSH normal at (units (unknown) date) 1.35 and mag 2.2 unknown) (unknown) (no (unknown) (unknown) -continue [place] (units (unknown) date) as needed unknown) (unknown) (no (unknown) (unknown) -continue PPI (units ( unknown) date) unknown) (unknown) (no (unknown) (unknown) -continue home (units (unknown) date) losartan 100 mg unknown) daily (unknown) (no (unknown) (unknown) -currently on (units ( unknown) date) baseline 2L O2 unknown) (unknown) (no (unknown) (unknown) -heart score of (units (unknown) date) 4 unknown) (unknown) (no (unknown) (unknown) -hold home (units (unk nown) date) glimepiride unknown) (unknown) (no (unknown) (unknown) -low-dose (units (unkn own) date) sliding scale unknown) insulin (unknown) (no (unknown) (unknown) -start aspirin (units (unknown) date) 81 mg daily unknown) (unknown) (no (unknown) (unknown) -start metop XL (units (unknown) date) 25mg daily unknown) (unknown) (no (unknown) (unknown) -tele as above (units (unknown) date) unknown) (unknown) (no (unknown) (unknown) -worse with deep (units (unknown) date) breaths, appears unknown) less likely cardiac but related to her pulm (unknown) (no (unknown) (unknown) 0.5 - 1 tab PO (units (unknown) date) BEDTIME PRN unknown) (Reason: pain) Qty: 30 0RF (unknown) (no (unknown) (unknown) 00:00 09/29/22 (units (unknown) date) unknown) (unknown) (no (unknown) (unknown) 09/28/22 (units (unkno wn) date) 09/28/22 09/28/22 unknown) (unknown) (no (unknown) (unknown) 09/28/22 17:50 (units (unknown) date) unknown) (unknown) (no (unknown) (unknown) 09/29/22 (units (unkno wn) date) 09/29/22 09/29/22 unknown) (unknown) (no (unknown) (unknown) 09/29/22 04:19 (units (unknown) date) unknown) (unknown) (no (unknown) (unknown) 09/29/22 0919 (units ( unknown) date) unknown) (unknown) (no (unknown) (unknown) 09/29/22 (units (unkno wn) date) unknown) (unknown) (no (unknown) (unknown) 03:23 09/29/22 (units (unknown) date) unknown) (unknown) (no (unknown) (unknown) 04:19 04:19 (units (un known) date) 04:19 unknown) (unknown) (no (unknown) (unknown) 07:50 (units (unkno wn) date) unknown) (unknown) (no (unknown) (unknown) 1 mg PO DAILY (units ( unknown) date) Qty: 0 unknown) (unknown) (no (unknown) (unknown) 100 mg PO DAILY (units (unknown) date) Qty: 90 3RF unknown) (unknown) (no (unknown) (unknown) 11:50 11:50 (units (un known) date) 11:50 unknown) (unknown) (no (unknown) (unknown) 11:50 12:55 (units (un known) date) 14:20 unknown) (unknown) (no (unknown) (unknown) 14:20 14:20 (units (un known) date) 20:01 unknown) (unknown) (no (unknown) (unknown) 2L by NC with (units ( unknown) date) activity and unknown) while sleeping room air SaO2 95% at rest,room air (unknown) (no (unknown) (unknown) 40 mg PO DAILY (units (unknown) date) unknown) (unknown) (no (unknown) (unknown) 500 mg PO Q6HP (units (unknown) date) PRN (Reason: unknown) pain) Qty: 0 (unknown) (no (unknown) (unknown) 70 mg PO QWEEK (units (unknown) date) unknown) (unknown) (no (unknown) (unknown) ABD: soft, (units (unk nown) date) nontender, unknown) nondistended, no organomegaly (unknown) (no (unknown) (unknown) ALT 21 (units (unkno wn) date) unknown) (unknown) (no (unknown) (unknown) ALT (units (unkno wn) date) unknown) (unknown) (no (unknown) (unknown) APTT 29 (units (unkno wn) date) unknown) (unknown) (no (unknown) (unknown) APTT (units (unkno wn) date) unknown) (unknown) (no (unknown) (unknown) AST 25 (units (unkno wn) date) unknown) (unknown) (no (unknown) (unknown) AST (units (unkno wn) date) unknown) (unknown) (no (unknown) (unknown) Age/Sex: 86 / F (units (unknown) date) unknown) (unknown) (no (unknown) (unknown) Albumin 4.4 (units (un known) date) unknown) (unknown) (no (unknown) (unknown) Albumin (units (unkno wn) date) unknown) (unknown) (no (unknown) (unknown) Albumin/Globulin (units (unknown) date) Ratio 1.0 unknown) (unknown) (no (unknown) (unknown) Albumin/Globulin (units (unknown) date) Ratio unknown) (unknown) (no (unknown) (unknown) Irma Holder DO (units (unknown) date) unknown) (unknown) (no (unknown) (unknown) Alkaline (units (unkno wn) date) Phosphatase 52 unknown) (unknown) (no (unknown) (unknown) Alkaline (units (unkno wn) date) Phosphatase unknown) (unknown) (no (unknown) (unknown) Anesthesia (units (unk nown) date) unknown) (unknown) (no (unknown) (unknown) Attending (units (unkn own) date) Provider: unknown) Karel Iraheta (unknown) (no (unknown) (unknown) BUN 17 (units (unkno wn) date) unknown) (unknown) (no (unknown) (unknown) BUN (units (unkno wn) date) unknown) (unknown) (no (unknown) (unknown) BUN/Creatinine (units (unknown) date) Ratio 27.4 H unknown) (unknown) (no (unknown) (unknown) BUN/Creatinine (units (unknown) date) Ratio 29.8 H unknown) (unknown) (no (unknown) (unknown) BUN/Creatinine (units (unknown) date) Ratio unknown) (unknown) (no (unknown) (unknown) Baso # (Auto) (units ( unknown) date) 100 unknown) (unknown) (no (unknown) (unknown) Baso # (Auto) (units ( unknown) date) unknown) (unknown) (no (unknown) (unknown) Baso % (Auto) (units ( unknown) date) 0.9 unknown) (unknown) (no (unknown) (unknown) Baso % (Auto) (units ( unknown) date) 1.2 unknown) (unknown) (no (unknown) (unknown) Baso % (Auto) (units ( unknown) date) unknown) (unknown) (no (unknown) (unknown) Benign essential (units (unknown) date) HTN unknown) (unknown) (no (unknown) (unknown) Blood Pressure (units (unknown) date) 155/74 H 125/57 L unknown) (unknown) (no (unknown) (unknown) CK-MB (CK-2) Rel (units (unknown) date) Index TNP unknown) (unknown) (no (unknown) (unknown) CK-MB (CK-2) Rel (units (unknown) date) Index unknown) (unknown) (no (unknown) (unknown) CK-MB (CK-2) TNP (units (unknown) date) unknown) (unknown) (no (unknown) (unknown) CK-MB (CK-2) (units (u nknown) date) unknown) (unknown) (no (unknown) (unknown) CT (units (unkno wn) date) unknown) (unknown) (no (unknown) (unknown) CV: regular rate (units (unknown) date) and rhythm, no unknown) murmurs (unknown) (no (unknown) (unknown) Calcium 10.0 (units (u nknown) date) unknown) (unknown) (no (unknown) (unknown) Calcium 9.0 (units (un known) date) unknown) (unknown) (no (unknown) (unknown) Calcium (units (unkno wn) date) unknown) (unknown) (no (unknown) (unknown) Carbon Dioxide (units (unknown) date) 26 unknown) (unknown) (no (unknown) (unknown) Carbon Dioxide (units (unknown) date) 28 unknown) (unknown) (no (unknown) (unknown) Carbon Dioxide (units (unknown) date) unknown) (unknown) (no (unknown) (unknown) Chief complaint: (units (unknown) date) heart problems unknown) sent by Dr. Holder (unknown) (no (unknown) (unknown) Chloride 102 (units (u nknown) date) unknown) (unknown) (no (unknown) (unknown) Chloride (units (unkno wn) date) unknown) (unknown) (no (unknown) (unknown) Cholesterol 193 (units (unknown) date) unknown) (unknown) (no (unknown) (unknown) Cholesterol (units (un known) date) unknown) (unknown) (no (unknown) (unknown) Chronic back (units (u nknown) date) pain unknown) (unknown) (no (unknown) (unknown) Continued (units (unkn own) date) unknown) (unknown) (no (unknown) (unknown) Creatinine 0.57 (units (unknown) date) unknown) (unknown) (no (unknown) (unknown) Creatinine 0.62 (units (unknown) date) unknown) (unknown) (no (unknown) (unknown) Creatinine (units (unk nown) date) unknown) (unknown) (no (unknown) (unknown) : 1935 (units (unknown) date) Acct:[id number] unknown) (unknown) (no (unknown) (unknown) Date Patient (units (u nknown) date) Seen: 09/29/22 unknown) (unknown) (no (unknown) (unknown) Date of Service: (units (unknown) date) 09/28/22 unknown) (unknown) (no (unknown) (unknown) Date of (units (unkno wn) date) admission: unknown) (unknown) (no (unknown) (unknown) Deep Vein (units (unkn own) date) Thrombosis/Pulmon unknown) shay Embolism Present on Admission: No (unknown) (no (unknown) (unknown) Discharge Data (units (unknown) date) unknown) (unknown) (no (unknown) (unknown) Discharge Date: (units (unknown) date) 09/29/22 unknown) (unknown) (no (unknown) (unknown) Discharge (units (unkn own) date) Diagnosis: unknown) (unknown) (no (unknown) (unknown) Discharge Plan (units (unknown) date) unknown) (unknown) (no (unknown) (unknown) Discharge (units (unkn own) date) Providers unknown) (unknown) (no (unknown) (unknown) Discharge (units (unkn own) date) Summary unknown) (unknown) (no (unknown) (unknown) Discharge orders (units (unknown) date) + Medications unknown) (unknown) (no (unknown) (unknown) Discharge (units (unkn own) date) provider: unknown) (unknown) (no (unknown) (unknown) EXT: warm and (units ( unknown) date) well perfused unknown) with no edema (unknown) (no (unknown) (unknown) Eos # (Auto) 500 (units (unknown) date) H unknown) (unknown) (no (unknown) (unknown) Eos # (Auto) (units (u nknown) date) unknown) (unknown) (no (unknown) (unknown) Eos % (Auto) 3.5 (units (unknown) date) unknown) (unknown) (no (unknown) (unknown) Eos % (Auto) 5.0 (units (unknown) date) H unknown) (unknown) (no (unknown) (unknown) Eos % (Auto) (units (u nknown) date) unknown) (unknown) (no (unknown) (unknown) Estimated GFR > (units (unknown) date) 60 unknown) (unknown) (no (unknown) (unknown) Estimated GFR (units ( unknown) date) unknown) (unknown) (no (unknown) (unknown) Exam Narrative: (units (unknown) date) unknown) (unknown) (no (unknown) (unknown) Exam (units (unkno wn) date) unknown) (unknown) (no (unknown) (unknown) Follow (units (unkno wn) date) up/Referrals: unknown) (unknown) (no (unknown) (unknown) Fraction of (units (un known) date) Inspired Oxygen unknown) 28 (unknown) (no (unknown) (unknown) GEN: no acute (units ( unknown) date) distress, appears unknown) younger than stated age (unknown) (no (unknown) (unknown) GERD (units (unkno wn) date) (gastroesophageal unknown) reflux disease) (unknown) (no (unknown) (unknown) Globulin 4.5 H (units (unknown) date) unknown) (unknown) (no (unknown) (unknown) Globulin (units (unkno wn) date) unknown) (unknown) (no (unknown) (unknown) Glucose 155 H (units ( unknown) date) unknown) (unknown) (no (unknown) (unknown) Glucose 174 H (units ( unknown) date) unknown) (unknown) (no (unknown) (unknown) Glucose (units (unkno wn) date) unknown) (unknown) (no (unknown) (unknown) HDL Cholesterol (units (unknown) date) 51 unknown) (unknown) (no (unknown) (unknown) HDL Cholesterol (units (unknown) date) unknown) (unknown) (no (unknown) (unknown) HEENT: moist (units (u nknown) date) mucous membranes, unknown) PERRL (unknown) (no (unknown) (unknown) HTN, SVT, DM2, (units (unknown) date) and chronic back unknown) pain who presents with chest pain. Patient says (unknown) (no (unknown) (unknown) Hct 31.2 L (units (unk nown) date) unknown) (unknown) (no (unknown) (unknown) Hct 36.2 (units (unkno wn) date) unknown) (unknown) (no (unknown) (unknown) Hct (units (unkno wn) date) unknown) (unknown) (no (unknown) (unknown) Hearing loss (units (u nknown) date) unknown) (unknown) (no (unknown) (unknown) Hemoglobin A1c (units (unknown) date) 7.1 H unknown) (unknown) (no (unknown) (unknown) Hemoglobin A1c (units (unknown) date) unknown) (unknown) (no (unknown) (unknown) Hgb 10.6 L (units (unk nown) date) unknown) (unknown) (no (unknown) (unknown) Hgb 12.2 (units (unkno wn) date) unknown) (unknown) (no (unknown) (unknown) Hgb (units (unkno wn) date) unknown) (unknown) (no (unknown) (unknown) History of (units (unk nown) date) Present Illness unknown) (unknown) (no (unknown) (unknown) History of total (units (unknown) date) hip replacement unknown) (unknown) (no (unknown) (unknown) History of (units (unk nown) date) urinary unknown) incontinence (unknown) (no (unknown) (unknown) Hospital Course (units (unknown) date) unknown) (unknown) (no (unknown) (unknown) Hospital Course: (units (unknown) date) unknown) (unknown) (no (unknown) (unknown) INR 1.0 (units (unkno wn) date) unknown) (unknown) (no (unknown) (unknown) INR (units (unkno wn) date) unknown) (unknown) (no (unknown) (unknown) Instructions: DI (units (unknown) date) for Atypical unknown) Chest Pain (unknown) (no (unknown) (unknown) [facility] (units (unknown) date) [address] unknown) [place] [address] (unknown) (no (unknown) (unknown) LDL Cholesterol, (units (unknown) date) Calc 125 H unknown) (unknown) (no (unknown) (unknown) LDL Cholesterol, (units (unknown) date) Calc unknown) (unknown) (no (unknown) (unknown) Laboratory (units (unk nown) date) Results - last 24 unknown) hr (unknown) (no (unknown) (unknown) Labs (units (unkno wn) date) unknown) (unknown) (no (unknown) (unknown) Labs: (units (unkno wn) date) unknown) (unknown) (no (unknown) (unknown) Lipase 52 (units (unkn own) date) unknown) (unknown) (no (unknown) (unknown) Lipase (units (unkno wn) date) unknown) (unknown) (no (unknown) (unknown) Lymph # (Auto) (units (unknown) date) 1600 unknown) (unknown) (no (unknown) (unknown) Lymph # (Auto) (units (unknown) date) 2000 unknown) (unknown) (no (unknown) (unknown) Lymph # (Auto) (units (unknown) date) unknown) (unknown) (no (unknown) (unknown) Lymph % (Auto) (units (unknown) date) 15.3 L unknown) (unknown) (no (unknown) (unknown) Lymph % (Auto) (units (unknown) date) 15.6 L unknown) (unknown) (no (unknown) (unknown) Lymph % (Auto) (units (unknown) date) unknown) (unknown) (no (unknown) (unknown) [id number] (units (unk nown) date) unknown) (unknown) (no (unknown) (unknown) MCH 31.2 (units (unkno wn) date) unknown) (unknown) (no (unknown) (unknown) MCH 31.4 (units (unkno wn) date) unknown) (unknown) (no (unknown) (unknown) MCH (units (unkno wn) date) unknown) (unknown) (no (unknown) (unknown) MCHC 33.7 (units (unkn own) date) unknown) (unknown) (no (unknown) (unknown) MCHC 33.9 (units (unkn own) date) unknown) (unknown) (no (unknown) (unknown) MCHC (units (unkno wn) date) unknown) (unknown) (no (unknown) (unknown) MCV 92.5 (units (unkno wn) date) unknown) (unknown) (no (unknown) (unknown) MCV 92.6 (units (unkno wn) date) unknown) (unknown) (no (unknown) (unknown) MCV (units (unkno wn) date) unknown) (unknown) (no (unknown) (unknown) Magnesium 1.7 (units ( unknown) date) unknown) (unknown) (no (unknown) (unknown) Magnesium 2.2 (units ( unknown) date) unknown) (unknown) (no (unknown) (unknown) Magnesium (units (unkn own) date) unknown) (unknown) (no (unknown) (unknown) Karel Iraheta, (units (unknown) date) DO unknown) (unknown) (no (unknown) (unknown) Medical History (units (unknown) date) (Updated 09/28/22 unknown) @ 15:50 by Chad Blanco MD) (unknown) (no (unknown) (unknown) [place] # (Auto) (units ( unknown) date) 1000 H unknown) (unknown) (no (unknown) (unknown) [place] # (Auto) (units ( unknown) date) 800 unknown) (unknown) (no (unknown) (unknown) [place] # (Auto) (units ( unknown) date) unknown) (unknown) (no (unknown) (unknown) [place] % (Auto) (units ( unknown) date) 7.6 unknown) (unknown) (no (unknown) (unknown) [place] % (Auto) (units ( unknown) date) 7.8 unknown) (unknown) (no (unknown) (unknown) [place] % (Auto) (units ( unknown) date) unknown) (unknown) (no (unknown) (unknown) NECK: trachea (units ( unknown) date) midline, no JVD unknown) (unknown) (no (unknown) (unknown) NEURO: awake, (units ( unknown) date) alert, oriented, unknown) no focal deficits (unknown) (no (unknown) (unknown) Narrative (units (unkn own) date) unknown) (unknown) (no (unknown) (unknown) Narrative: (units (unk nown) date) unknown) (unknown) (no (unknown) (unknown) Neut # (Auto) (units ( unknown) date) 7400 H unknown) (unknown) (no (unknown) (unknown) Neut # (Auto) (units ( unknown) date) 9400 H unknown) (unknown) (no (unknown) (unknown) Neut # (Auto) (units ( unknown) date) unknown) (unknown) (no (unknown) (unknown) Neut % (Auto) (units ( unknown) date) 70.6 unknown) (unknown) (no (unknown) (unknown) Neut % (Auto) (units ( unknown) date) 72.5 unknown) (unknown) (no (unknown) (unknown) Neut % (Auto) (units ( unknown) date) unknown) (unknown) (no (unknown) (unknown) Objective (units (unkn own) date) unknown) (unknown) (no (unknown) (unknown) Osteoarthritis (units (unknown) date) unknown) (unknown) (no (unknown) (unknown) Osteoporosis (units (u nknown) date) unknown) (unknown) (no (unknown) (unknown) Oxygen Delivery (units (unknown) date) Method Nasal unknown) Cannula (unknown) (no (unknown) (unknown) Oxygen Flow Rate (units (unknown) date) 2 2 2 unknown) (unknown) (no (unknown) (unknown) Oxygen Flow Rate (units (unknown) date) 2 unknown) (unknown) (no (unknown) (unknown) PFSH (units (unkno wn) date) unknown) (unknown) (no (unknown) (unknown) PT 11.4 (units (unkno wn) date) unknown) (unknown) (no (unknown) (unknown) PT (units (unkno wn) date) unknown) (unknown) (no (unknown) (unknown) PULM: clear (units (un known) date) bilaterally unknown) (unknown) (no (unknown) (unknown) Patient (units (unkno wn) date) Disposition: Home unknown) (unknown) (no (unknown) (unknown) Patient: (units (unkno wn) date) Rosita Devi unknown) L MR#: (unknown) (no (unknown) (unknown) Rosita Devi (units (unknown) date) is an 86yo F with unknown) 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, GERD, (unknown) (no (unknown) (unknown) Plt Count 226 (units ( unknown) date) unknown) (unknown) (no (unknown) (unknown) Plt Count 257 (units ( unknown) date) unknown) (unknown) (no (unknown) (unknown) Plt Count (units (unkn own) date) unknown) (unknown) (no (unknown) (unknown) Potassium 4.1 (units ( unknown) date) unknown) (unknown) (no (unknown) (unknown) Potassium (units (unkn own) date) unknown) (unknown) (no (unknown) (unknown) Prescriptions: (units (unknown) date) unknown) (unknown) (no (unknown) (unknown) Presented with (units (unknown) date) heavy chest pain unknown) which was worse with deep breaths. Trops (unknown) (no (unknown) (unknown) Primary Care (units (u nknown) date) Provider: unknown) Irma Holder (unknown) (no (unknown) (unknown) Primary care (units (u nknown) date) physician: unknown) (unknown) (no (unknown) (unknown) Provider (units (unkno wn) date) Discharge unknown) Comment: You were admitted for chest pain which was worse (unknown) (no (unknown) (unknown) Provider (units (unkno wn) date) unknown) (unknown) (no (unknown) (unknown) Provider: (units (unkn own) date) Karel Iraheta unknown) D.O. (unknown) (no (unknown) (unknown) Pulmonary (units (unkn own) date) fibrosis unknown) (unknown) (no (unknown) (unknown) Pulse Oximetry (units (unknown) date) 96 96 95 unknown) (unknown) (no (unknown) (unknown) Pulse Rate 73 73 (units (unknown) date) 70 unknown) (unknown) (no (unknown) (unknown) Quality (units (unkno wn) date) unknown) (unknown) (no (unknown) (unknown) RBC 3.37 L (units (unk nown) date) unknown) (unknown) (no (unknown) (unknown) RBC 3.91 L (units (unk nown) date) unknown) (unknown) (no (unknown) (unknown) RBC (units (unkno wn) date) unknown) (unknown) (no (unknown) (unknown) RDW 14.7 (units (unkno wn) date) unknown) (unknown) (no (unknown) (unknown) RDW (units (unkno wn) date) unknown) (unknown) (no (unknown) (unknown) Respiratory Rate (units (unknown) date) 19 17 16 unknown) (unknown) (no (unknown) (unknown) Rx Instructions: (units (unknown) date) unknown) (unknown) (no (unknown) (unknown) SARS-CoV-2 (PCR) (units (unknown) date) Negative unknown) (unknown) (no (unknown) (unknown) SARS-CoV-2 (PCR) (units (unknown) date) unknown) (unknown) (no (unknown) (unknown) SVT (units (unkno wn) date) (supraventricular unknown) tachycardia) (unknown) (no (unknown) (unknown) SaO2 85%,while (units (unknown) date) walking SaO2 95% unknown) with 2L for pulmonary fibrosis (unknown) (no (unknown) (unknown) SaO2 w/ 2L O2 (units ( unknown) date) 95% unknown) (unknown) (no (unknown) (unknown) SaO2/FiO2 Ratio (units (unknown) date) 339 unknown) (unknown) (no (unknown) (unknown) Glory please (units ( unknown) date) arrive at 8:45 unknown) for check in ) (unknown) (no (unknown) (unknown) Irma Holder, DO (units (unknown) date) [Primary Care unknown) Provider] - 10/05/22 9:00 am (Appt:10/05 @ 9:00 Dr (unknown) (no (unknown) (unknown) See Rx (units (unkno wn) date) Instructions unknown) .Route .MEDSUPPLY Qty: 1 0RF (unknown) (no (unknown) (unknown) Shoulder pain (units ( unknown) date) unknown) (unknown) (no (unknown) (unknown) Signed (units (unkno wn) date) By:<Electronicall unknown) y signed by Karel Iraheta D.O.> (unknown) (no (unknown) (unknown) Sleep apnea (units (un known) date) unknown) (unknown) (no (unknown) (unknown) Smoking Status: (units (unknown) date) Former smoker unknown) (unknown) (no (unknown) (unknown) Social History (units (unknown) date) unknown) (unknown) (no (unknown) (unknown) Sodium 136 L (units (u nknown) date) unknown) (unknown) (no (unknown) (unknown) Sodium 137 (units (unk nown) date) unknown) (unknown) (no (unknown) (unknown) Sodium (units (unkno wn) date) unknown) (unknown) (no (unknown) (unknown) Stand Alone (units (un known) date) Forms: Patient unknown) Portal/API, Stroke Signs + Symptoms (unknown) (no (unknown) (unknown) Summary (units (unkno wn) date) unknown) (unknown) (no (unknown) (unknown) Surgical History (units (unknown) date) (Updated 06/14/22 unknown) @ 22:24 by Sherita Carreon) (unknown) (no (unknown) (unknown) TSH 1.35 (units (unkno wn) date) unknown) (unknown) (no (unknown) (unknown) TSH (units (unkno wn) date) unknown) (unknown) (no (unknown) (unknown) Temperature 97.6 (units (unknown) date) F 96.7 F L unknown) (unknown) (no (unknown) (unknown) Time Spent with (units (unknown) date) Patient unknown) (unknown) (no (unknown) (unknown) Time spent: (units (un known) date) Greater than 30 unknown) minutes (unknown) (no (unknown) (unknown) Total Bilirubin (units (unknown) date) 0.5 unknown) (unknown) (no (unknown) (unknown) Total Bilirubin (units (unknown) date) unknown) (unknown) (no (unknown) (unknown) Total Creatine (units (unknown) date) Kinase 48 unknown) (unknown) (no (unknown) (unknown) Total Creatine (units (unknown) date) Kinase 51 unknown) (unknown) (no (unknown) (unknown) Total Creatine (units (unknown) date) Kinase unknown) (unknown) (no (unknown) (unknown) Total Protein (units ( unknown) date) 8.9 H unknown) (unknown) (no (unknown) (unknown) Total Protein (units ( unknown) date) unknown) (unknown) (no (unknown) (unknown) Triglycerides 87 (units (unknown) date) unknown) (unknown) (no (unknown) (unknown) Triglycerides (units ( unknown) date) unknown) (unknown) (no (unknown) (unknown) Troponin I < (units (u nknown) date) 0.012 unknown) (unknown) (no (unknown) (unknown) Troponin I (units (unk nown) date) unknown) (unknown) (no (unknown) (unknown) 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 Cult unknown) not indicated (unknown) (no (unknown) (unknown) Ur Culture (units (unk nown) date) Indicated? unknown) (unknown) (no (unknown) (unknown) Ur Leukocyte (units (u nknown) date) Esterase Trace H unknown) (unknown) (no (unknown) (unknown) Ur Leukocyte (units (u nknown) date) Esterase unknown) (unknown) (no (unknown) (unknown) Ur Specific (units (un known) date) [place] <=1.005 unknown) (unknown) (no (unknown) (unknown) Ur Specific (units (un known) date) [place] unknown) (unknown) (no (unknown) (unknown) Ur Squamous (units (un known) date) Epith Cells 1-5 unknown) /hpf (unknown) (no (unknown) (unknown) Ur Squamous (units (un known) date) Epith Cells unknown) (unknown) (no (unknown) (unknown) Urine Appearance (units (unknown) date) Clear unknown) (unknown) (no (unknown) (unknown) Urine Appearance (units (unknown) date) unknown) (unknown) (no (unknown) (unknown) Urine Bacteria (units (unknown) date) None seen unknown) (unknown) (no (unknown) (unknown) Urine Bacteria (units (unknown) date) unknown) (unknown) (no (unknown) (unknown) Urine Bilirubin (units (unknown) date) Negative unknown) (unknown) (no (unknown) (unknown) Urine Bilirubin (units (unknown) date) unknown) (unknown) (no (unknown) (unknown) Urine Color (units (un known) date) Yellow unknown) (unknown) (no (unknown) (unknown) Urine Color (units (un known) date) unknown) (unknown) (no (unknown) (unknown) Urine Glucose (units ( unknown) date) (UA) Negative unknown) (unknown) (no (unknown) (unknown) Urine Glucose (units ( unknown) date) (UA) unknown) (unknown) (no (unknown) (unknown) Urine Ketones (units ( unknown) date) Negative unknown) (unknown) (no (unknown) (unknown) Urine Ketones (units ( unknown) date) unknown) (unknown) (no (unknown) (unknown) Urine Nitrate (units ( unknown) date) Negative unknown) (unknown) (no (unknown) (unknown) Urine Nitrate (units ( unknown) date) unknown) (unknown) (no (unknown) (unknown) Urine Occult (units (u nknown) date) Blood Negative unknown) (unknown) (no (unknown) (unknown) Urine Occult (units (u nknown) date) Blood unknown) (unknown) (no (unknown) (unknown) Urine Protein (units ( unknown) date) Negative unknown) (unknown) (no (unknown) (unknown) Urine Protein (units ( unknown) date) unknown) (unknown) (no (unknown) (unknown) Urine RBC (units (unkn own) date) 0-1/hpf unknown) (unknown) (no (unknown) (unknown) Urine RBC (units (unkn own) date) unknown) (unknown) (no (unknown) (unknown) Urine (units (unkno wn) date) Urobilinogen 0.2 unknown) (unknown) (no (unknown) (unknown) Urine (units (unkno wn) date) Urobilinogen unknown) (unknown) (no (unknown) (unknown) Urine WBC (units (unkn own) date) 0-1/hpf unknown) (unknown) (no (unknown) (unknown) Urine WBC (units (unkn own) date) unknown) (unknown) (no (unknown) (unknown) Urine pH 6.5 (units (u nknown) date) unknown) (unknown) (no (unknown) (unknown) Urine pH (units (unkno wn) date) unknown) (unknown) (no (unknown) (unknown) VTE (units (unkno wn) date) unknown) (unknown) (no (unknown) (unknown) Visit (units (unkno wn) date) Report/Discharge unknown) Packet (unknown) (no (unknown) (unknown) Vital Signs (units (un known) date) unknown) (unknown) (no (unknown) (unknown) WBC 10.4 (units (unkno wn) date) unknown) (unknown) (no (unknown) (unknown) WBC 12.9 H (units (unk nown) date) unknown) (unknown) (no (unknown) (unknown) WBC (units (unkno wn) date) unknown) (unknown) (no (unknown) (unknown) [Embedded Image (units (unknown) date) Not Available] unknown) (unknown) (no (unknown) (unknown) acetaminophen (units ( unknown) date) [Tylenol Extra unknown) Strength] 500 MG tablet (unknown) (no (unknown) (unknown) alcohol intake: (units (unknown) date) current unknown) (unknown) (no (unknown) (unknown) alendronate (units (un known) date) [Fosamax] 70 mg unknown) tablet (unknown) (no (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 (unknown) (no (unknown) (unknown) current chest (units ( unknown) date) pain, NV, abd unknown) pain or diarrhea. (unknown) (no (unknown) (unknown) dx: Pulmonary (units ( unknown) date) Fibrosis unknown) (unknown) (no (unknown) (unknown) especially while (units (unknown) date) walking her dog. unknown) She says she had a full cardiac workup (unknown) (no (unknown) (unknown) fibrosis (units (unkno wn) date) unknown) (unknown) (no (unknown) (unknown) glimepiride (units (un known) date) [Amaryl] 1 mg unknown) tablet (unknown) (no (unknown) (unknown) having to wait 2 (units (unknown) date) days for it she unknown) elected to discharge and follow-up with her (unknown) (no (unknown) (unknown) household (units (unkn own) date) members: spouse unknown) (unknown) (no (unknown) (unknown) hydrocodone-acet (units (unknown) date) aminophen 5-325 unknown) mg tablet (unknown) (no (unknown) (unknown) levels were (units (un known) date) normal. You unknown) elected not to stay for a stress test. (unknown) (no (unknown) (unknown) losartan 100 mg (units (unknown) date) tablet unknown) (unknown) (no (unknown) (unknown) negative. Stress (units (unknown) date) test was delayed unknown) due to lack of availability so instead of (unknown) (no (unknown) (unknown) oxygen (units (unkno wn) date) concentrator. 2L unknown) by NC with activity and while sleeping (unknown) (no (unknown) (unknown) pantoprazole 40 (units (unknown) date) mg tablet,delayed unknown) release (DR/EC) (unknown) (no (unknown) (unknown) recently (units (unkno wn) date) including stress unknown) test and echo which were reassuring. She denies (unknown) (no (unknown) (unknown) room air Sa02 (units ( unknown) date) 85% while walking unknown) (unknown) (no (unknown) (unknown) room air SaO2 (units ( unknown) date) 95% at rest unknown) (unknown) (no (unknown) (unknown) she developed (units ( unknown) date) heavy chest pain unknown) this morning. Worse with deep breaths. She came (unknown) (no (unknown) (unknown) to the ED (units (unkn own) date) because she was unknown) worried about her worsening SOB the past 6 months, (unknown) (no (unknown) (unknown) with deep (units (unkn own) date) breaths so likely unknown) related to your pulm fibrosis. You heart enzyme Result panel 304 (unknown) (no (unknown) (unknown) (no value) (units (unk nown) date) unknown) (unknown) (no (unknown) (unknown) <Electronically (units (unknown) date) signed by Chad unknown) MD Bella> (unknown) (no (unknown) (unknown) (Tylenol Extra (units (unknown) date) Strength) unknown) (unknown) (no (unknown) (unknown) 09/28/22 09/28/22 (units (unknown) date) 09/28/22 unknown) Range/Units (unknown) (no (unknown) (unknown) 09/28/22 09/28/22 (units (unknown) date) Range/Units unknown) (unknown) (no (unknown) (unknown) 09/28/22 11:50 (units (unknown) date) unknown) (unknown) (no (unknown) (unknown) 09/28/22 (units (unkno wn) date) unknown) (unknown) (no (unknown) (unknown) 10/04/22 0247 (units ( unknown) date) unknown) (unknown) (no (unknown) (unknown) 03/02/2022.? (units (u nknown) date) Pulmonary fibrosis unknown) or interstitial pneumonitis considered.? (unknown) (no (unknown) (unknown) 1. 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 (unknown) (no (unknown) (unknown) 1. Peripheral (units ( unknown) date) chronic unknown) interstitial changes have a reticular pattern are stable (unknown) (no (unknown) (unknown) 11:33 09/28/22 (units (unknown) date) unknown) (unknown) (no (unknown) (unknown) 11:42 09/28/22 (units (unknown) date) unknown) (unknown) (no (unknown) (unknown) 11:50 11:50 11:50 (units (unknown) date) unknown) (unknown) (no (unknown) (unknown) 11:50 12:55 14:20 (units (unknown) date) unknown) (unknown) (no (unknown) (unknown) Count includes the [facility] [address] [place] [address] (units (unknown) date) unknown) (unknown) (no (unknown) (unknown) 12:00 (units (unkno wn) date) unknown) (unknown) (no (unknown) (unknown) 12:01 09/28/22 (units (unknown) date) unknown) (unknown) (no (unknown) (unknown) 12:30 09/28/22 (units (unknown) date) unknown) (unknown) (no (unknown) (unknown) 12:47 (units (unkno wn) date) unknown) (unknown) (no (unknown) (unknown) 12:58 09/28/22 (units (unknown) date) unknown) (unknown) (no (unknown) (unknown) 12:58 (units (unkno wn) date) unknown) (unknown) (no (unknown) (unknown) 136 AST 25 ALT 21, (units (unknown) date) troponin and repeat unknown) troponin less than 0.012, CBC 12.9 hemogl (unknown) (no (unknown) (unknown) 13:00 09/28/22 (units (unknown) date) unknown) (unknown) (no (unknown) (unknown) 13:00 (units (unkno wn) date) unknown) (unknown) (no (unknown) (unknown) 13:10 09/28/22 (units (unknown) date) unknown) (unknown) (no (unknown) (unknown) 13:20 09/28/22 (units (unknown) date) unknown) (unknown) (no (unknown) (unknown) 13:20 (units (unkno wn) date) unknown) (unknown) (no (unknown) (unknown) 13:30 09/28/22 (units (unknown) date) unknown) (unknown) (no (unknown) (unknown) 13:31 09/28/22 (units (unknown) date) unknown) (unknown) (no (unknown) (unknown) 13:31 (units (unkno wn) date) unknown) (unknown) (no (unknown) (unknown) 13:40 09/28/22 (units (unknown) date) unknown) (unknown) (no (unknown) (unknown) 13:40 (units (unkno wn) date) unknown) (unknown) (no (unknown) (unknown) 13:50 09/28/22 (units (unknown) date) unknown) (unknown) (no (unknown) (unknown) 14:00 (units (unkno wn) date) unknown) (unknown) (no (unknown) (unknown) 14:01 09/28/22 (units (unknown) date) unknown) (unknown) (no (unknown) (unknown) 14:10 09/28/22 (units (unknown) date) unknown) (unknown) (no (unknown) (unknown) 14:10 (units (unkno wn) date) unknown) (unknown) (no (unknown) (unknown) 14:20 09/28/22 (units (unknown) date) unknown) (unknown) (no (unknown) (unknown) 14:20 14:20 (units (un known) date) unknown) (unknown) (no (unknown) (unknown) 14:20 (units (unkno wn) date) unknown) (unknown) (no (unknown) (unknown) 14:30 09/28/22 (units (unknown) date) unknown) (unknown) (no (unknown) (unknown) 14:40 09/28/22 (units (unknown) date) unknown) (unknown) (no (unknown) (unknown) 14:40 (units (unkno wn) date) unknown) (unknown) (no (unknown) (unknown) 14:50 09/28/22 (units (unknown) date) unknown) (unknown) (no (unknown) (unknown) 14:50 (units (unkno wn) date) unknown) (unknown) (no (unknown) (unknown) 15:00 09/28/22 (units (unknown) date) unknown) (unknown) (no (unknown) (unknown) 15:12 (units (unkno wn) date) unknown) (unknown) (no (unknown) (unknown) 2. Development of (units (unknown) date) masslike densities unknown) in the right lung. (unknown) (no (unknown) (unknown) 2. Large hiatal (units (unknown) date) hernia, stable? unknown) (unknown) (no (unknown) (unknown) 3. Large hiatal (units (unknown) date) hernia. unknown) (unknown) (no (unknown) (unknown) ? (units (unkno wn) date) unknown) (unknown) (no (unknown) (unknown) ALT (<35) IU/L (units (unknown) date) unknown) (unknown) (no (unknown) (unknown) ALT 21 (<35) IU/L (units (unknown) date) unknown) (unknown) (no (unknown) (unknown) APTT (26-36) (units (u nknown) date) SECONDS unknown) (unknown) (no (unknown) (unknown) APTT 29 (26-36) (units (unknown) date) SECONDS unknown) (unknown) (no (unknown) (unknown) AST (14-36) IU/L (units (unknown) date) unknown) (unknown) (no (unknown) (unknown) AST 25 (14-36) (units (unknown) date) IU/L unknown) (unknown) (no (unknown) (unknown) Abdomen:? (units (unkn own) date) Visualized upper unknown) abdominal solid organs appear normal.? Upper (unknown) (no (unknown) (unknown) Accession Number: (units (unknown) date) [id number] ?? unknown) (unknown) (no (unknown) (unknown) Accession Number: (units (unknown) date) [id number] ?? unknown) (unknown) (no (unknown) (unknown) Acct:[id number] (units (unknown) date) unknown) (unknown) (no (unknown) (unknown) Acetaminophen (units ( unknown) date) (Acetaminophen 325 unknown) Mg Tablet) 650 mg PO Q6H PRN (unknown) (no (unknown) (unknown) Admin: 09/28/22 (units (unknown) date) 15:33 Dose: 1,000 unknown) mls/hr (unknown) (no (unknown) (unknown) Admin: 09/28/22 (units (unknown) date) 19:38 Dose: 21 unknown) mls/hr (unknown) (no (unknown) (unknown) Admin: 09/28/22 (units (unknown) date) 19:38 Dose: 25 unknown) mls/hr (unknown) (no (unknown) (unknown) Admin: 09/28/22 (units (unknown) date) 19:54 Dose: 100 mg unknown) (unknown) (no (unknown) (unknown) Admin: 09/28/22 (units (unknown) date) 21:09 Dose: 10 ml unknown) (unknown) (no (unknown) (unknown) Admin: 09/28/22 (units (unknown) date) 21:09 Dose: Not unknown) Given (unknown) (no (unknown) (unknown) Admin: 09/29/22 (units (unknown) date) 00:22 Dose: 650 mg unknown) (unknown) (no (unknown) (unknown) Admit Date/Time: (units (unknown) date) 09/28/22 17:50 unknown) (unknown) (no (unknown) (unknown) Admit Provider: (units (unknown) date) Karel Iraheta unknown) (unknown) (no (unknown) (unknown) After history and (units (unknown) date) exam CBC CMP unknown) troponin x2, chest x-ray CT chest have been (unknown) (no (unknown) (unknown) After the (units (unkn own) date) administration of unknown) intravenous contrast, 5 mm thick sections acquired (unknown) (no (unknown) (unknown) Age/Sex: 86 / F (units (unknown) date) unknown) (unknown) (no (unknown) (unknown) Albumin (3.5-5.0) (units (unknown) date) g/dL unknown) (unknown) (no (unknown) (unknown) Albumin 4.4 (units (un known) date) (3.5-5.0) g/dL unknown) (unknown) (no (unknown) (unknown) Albumin/Globulin (units (unknown) date) Ratio (1.0-2.8) unknown) (unknown) (no (unknown) (unknown) Albumin/Globulin (units (unknown) date) Ratio 1.0 (1.0-2.8) unknown) (unknown) (no (unknown) (unknown) Alkaline (units (unkno wn) date) Phosphatase unknown) (38-126) U/L (unknown) (no (unknown) (unknown) Alkaline (units (unkno wn) date) Phosphatase 52 unknown) (38-126) U/L (unknown) (no (unknown) (unknown) Allergies (units (unkn own) date) unknown) (unknown) (no (unknown) (unknown) Allergy/AdvReac (units (unknown) date) Type Severity unknown) Reaction Status Date / Time (unknown) (no (unknown) (unknown) [place], [place] (units ( unknown) date) [address] unknown) (unknown) (no (unknown) (unknown) Anesthesia (units (unk nown) date) unknown) (unknown) (no (unknown) (unknown) Approved by: Fernando (units (unknown) date) Jagdeep Rivas on unknown) 09/28/2022 at 15:07? (unknown) (no (unknown) (unknown) Approved by: (units (u nknown) date) pérez Cisse M.D. on 09/28/2022 at 12:20 ? (unknown) (no (unknown) (unknown) Aspirin (Aspirin (units (unknown) date) 81 Mg Chew Tab) 324 unknown) mg PO NOW ONE (unknown) (no (unknown) (unknown) Aspirin (Aspirin (units (unknown) date) Ec 81 Mg Tablet) 81 unknown) mg PO DAILY ROX (unknown) (no (unknown) (unknown) BACK: No flank (units (unknown) date) tenderness. unknown) (unknown) (no (unknown) (unknown) BUN (7-17) mg/dL (units (unknown) date) unknown) (unknown) (no (unknown) (unknown) BUN 17 (7-17) (units ( unknown) date) mg/dL unknown) (unknown) (no (unknown) (unknown) BUN/Creatinine (units (unknown) date) Ratio (6-22) unknown) (unknown) (no (unknown) (unknown) BUN/Creatinine (units (unknown) date) Ratio 29.8 H (6-22) unknown) (unknown) (no (unknown) (unknown) Baso # (Auto) (units ( unknown) date) (0-100) /uL unknown) (unknown) (no (unknown) (unknown) Baso # (Auto) 100 (units (unknown) date) (0-100) /uL unknown) (unknown) (no (unknown) (unknown) Baso % (Auto) (units ( unknown) date) (0-2) % unknown) (unknown) (no (unknown) (unknown) Baso % (Auto) 0.9 (units (unknown) date) (0-2) % unknown) (unknown) (no (unknown) (unknown) Bedside Urine (units ( unknown) date) Bilirubin - unknown) Negative (unknown) (no (unknown) (unknown) Bedside Urine (units ( unknown) date) Glucose Negative unknown) (unknown) (no (unknown) (unknown) Bedside Urine (units ( unknown) date) Ketone - Negative unknown) (unknown) (no (unknown) (unknown) Bedside Urine (units ( unknown) date) Leukocytes - unknown) Negative (unknown) (no (unknown) (unknown) Bedside Urine (units ( unknown) date) Nitrite - Negative unknown) (unknown) (no (unknown) (unknown) Bedside Urine (units ( unknown) date) Occult Blood - unknown) Negative (unknown) (no (unknown) (unknown) Bedside Urine (units ( unknown) date) Protein - Negative unknown) (unknown) (no (unknown) (unknown) Bedside Urine (units ( unknown) date) Urobilinogen - unknown) Negative (unknown) (no (unknown) (unknown) Bedside Urine pH (units (unknown) date) 6.0 unknown) (unknown) (no (unknown) (unknown) Benign essential (units (unknown) date) HTN unknown) (unknown) (no (unknown) (unknown) 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 (unknown) (no (unknown) (unknown) Blood Pressure (units (unknown) date) 133/70 140/73 unknown) (unknown) (no (unknown) (unknown) Blood Pressure (units (unknown) date) 136/73 145/73 H unknown) (unknown) (no (unknown) (unknown) Blood Pressure (units (unknown) date) 151/80 H unknown) (unknown) (no (unknown) (unknown) Blood Pressure (units (unknown) date) 153/100 H 164/89 H unknown) (unknown) (no (unknown) (unknown) Blood Pressure (units (unknown) date) 153/74 H unknown) (unknown) (no (unknown) (unknown) Blood Pressure (units (unknown) date) 160/81 H unknown) (unknown) (no (unknown) (unknown) Blood Pressure (units (unknown) date) 162/79 H 09/28/22 unknown) 11:33 (unknown) (no (unknown) (unknown) Blood Pressure (units (unknown) date) 162/79 H unknown) (unknown) (no (unknown) (unknown) Blood Pressure (units (unknown) date) 162/82 H unknown) (unknown) (no (unknown) (unknown) Blood Pressure (units (unknown) date) 162/83 H unknown) (unknown) (no (unknown) (unknown) Blood Pressure (units (unknown) date) 165/82 H 164/84 H unknown) (unknown) (no (unknown) (unknown) Blood Pressure (units (unknown) date) 169/91 H unknown) (unknown) (no (unknown) (unknown) Blood Pressure (units (unknown) date) 178/83 H 147/70 H unknown) (unknown) (no (unknown) (unknown) Blood Pressure (units (unknown) date) 186/84 H 153/100 H unknown) (unknown) (no (unknown) (unknown) Blood Pressure (units (unknown) date) unknown) (unknown) (no (unknown) (unknown) Bones and chest (units (unknown) date) wall:? No unknown) suspicious bony lesions.? No vertebral body (unknown) (no (unknown) (unknown) Bones and chest (units (unknown) date) wall:? No unknown) suspicious bony lesions.? Overlying soft tissues (unknown) (no (unknown) (unknown) CARDIOVASCULAR: (units (unknown) date) Positive chest unknown) pain, negative palpitations (unknown) (no (unknown) (unknown) CARDIOVASCULAR: (units (unknown) date) Regular rate and unknown) rhythm without murmurs (unknown) (no (unknown) (unknown) CC: Chest pain (units (unknown) date) unknown) (unknown) (no (unknown) (unknown) CK-MB (CK-2) Rel (units (unknown) date) Index TNP unknown) (unknown) (no (unknown) (unknown) CK-MB (CK-2) Rel (units (unknown) date) Index unknown) (unknown) (no (unknown) (unknown) CK-MB (CK-2) TNP (units (unknown) date) unknown) (unknown) (no (unknown) (unknown) CK-MB (CK-2) (units (u nknown) date) unknown) (unknown) (no (unknown) (unknown) COMPARISON:? (units (u nknown) date) [facility], unknown) CT, CT CHEST WO [facility], 03/04/2022, 12:47. (unknown) (no (unknown) (unknown) CT Scan Report (units (unknown) date) unknown) (unknown) (no (unknown) (unknown) CT scan - chest: (units (unknown) date) unknown) (unknown) (no (unknown) (unknown) Calcium (8.4-10.2) (units (unknown) date) mg/dL unknown) (unknown) (no (unknown) (unknown) Calcium 10.0 (units (u nknown) date) (8.4-10.2) mg/dL unknown) (unknown) (no (unknown) (unknown) Carbon Dioxide (units (unknown) date) (22-32) mmol/L unknown) (unknown) (no (unknown) (unknown) Carbon Dioxide 26 (units (unknown) date) (22-32) mmol/L unknown) (unknown) (no (unknown) (unknown) Central and (units (un known) date) peripheral airways unknown) are patent and normal in caliber.? Peripheral (unknown) (no (unknown) (unknown) Chest pain (units (unk nown) date) unknown) (unknown) (no (unknown) (unknown) Chest x-ray: (units (u nknown) date) unknown) (unknown) (no (unknown) (unknown) Chief Complaint: (units (unknown) date) Chest Pain unknown) (unknown) (no (unknown) (unknown) Chloride (98-107) (units (unknown) date) mmol/L unknown) (unknown) (no (unknown) (unknown) Chloride 102 (units (u nknown) date) (98-107) mmol/L unknown) (unknown) (no (unknown) (unknown) Cholesterol (units (un known) date) (140-199) mg/dL unknown) (unknown) (no (unknown) (unknown) Cholesterol 193 (units (unknown) date) (140-199) mg/dL unknown) (unknown) (no (unknown) (unknown) Chronic back pain (units (unknown) date) unknown) (unknown) (no (unknown) (unknown) Clinical (units (unkno wn) date) Impression: unknown) (unknown) (no (unknown) (unknown) Comment:? (units (unkn own) date) Recommend CT chest unknown) with contrast for further evaluation.? (unknown) (no (unknown) (unknown) Complicating (units (u nknown) date) co-morbidities: unknown) Hypertension pulmonary fibrosis SVT (unknown) (no (unknown) (unknown) Consultations: (units (unknown) date) 2:15 p.m.. Spoke unknown) with hospitalist, Dr. Iraheta, will admit (unknown) (no (unknown) (unknown) Course (units (unkno wn) date) unknown) (unknown) (no (unknown) (unknown) Creatinine (units (unk nown) date) (0.52-1.04) mg/dL unknown) (unknown) (no (unknown) (unknown) Creatinine 0.57 (units (unknown) date) (0.52-1.04) mg/dL unknown) (unknown) (no (unknown) (unknown) : 1935 (units (unknown) date) Acct:[id number] unknown) (unknown) (no (unknown) (unknown) : 1935 (units (unknown) date) unknown) (unknown) (no (unknown) (unknown) Data collected (units (unknown) date) from: Patient and unknown) (unknown) (no (unknown) (unknown) Date of Service: (units (unknown) date) 09/28/22 unknown) (unknown) (no (unknown) (unknown) Departure (units (unkn own) date) unknown) (unknown) (no (unknown) (unknown) Dextrose (Dextrose (units (unknown) date) 50 % In Water 25 unknown) Gm/50 Ml Syringe) 25 gm IV PRN PRN (unknown) (no (unknown) (unknown) Diagnosis: Chest (units (unknown) date) pain unknown) (unknown) (no (unknown) (unknown) Dictated by: (units (u nknown) date) pérez Cisse M.D. on 09/28/2022 at 12:18 ? ? (unknown) (no (unknown) (unknown) Differential (units (u nknown) date) considered: unknown) Includes but not limited to STEMI non-STEMI unstable (unknown) (no (unknown) (unknown) Discharge Plan (units (unknown) date) unknown) (unknown) (no (unknown) (unknown) Discontinued (units (u nknown) date) Medications unknown) (unknown) (no (unknown) (unknown) Discussion: (units (un known) date) Appropriate for unknown) admission. Patient will need observation for chest (unknown) (no (unknown) (unknown) Documented By: HCW (units (unknown) date) unknown) (unknown) (no (unknown) (unknown) Documented By: MP (units (unknown) date) Co-signed By: CAM unknown) (unknown) (no (unknown) (unknown) Documented By: MP (units (unknown) date) Co-signed By: NILO unknown) (unknown) (no (unknown) (unknown) Documented By: MP (units (unknown) date) unknown) (unknown) (no (unknown) (unknown) Documented By: RB (units (unknown) date) unknown) (unknown) (no (unknown) (unknown) ENT: Mucous (units (un known) date) membranes moist. unknown) (unknown) (no (unknown) (unknown) ER Physician: (units ( unknown) date) Chad Blanco MD unknown) (unknown) (no (unknown) (unknown) EXTREMITIES: No (units (unknown) date) gross deformities. unknown) (unknown) (no (unknown) (unknown) EYES: Pupils equal (units (unknown) date) round unknown) (unknown) (no (unknown) (unknown) Emergency Report (units (unknown) date) unknown) (unknown) (no (unknown) (unknown) Enoxaparin Sodium (units (unknown) date) (Enoxaparin 40 unknown) Mg/0.4 Ml Syringe) 40 mg SUBCUT DAILY ROX (unknown) (no (unknown) (unknown) Eos # (Auto) (units (u nknown) date) (0-450) /uL unknown) (unknown) (no (unknown) (unknown) Eos # (Auto) 500 H (units (unknown) date) (0-450) /uL unknown) (unknown) (no (unknown) (unknown) Eos % (Auto) (2-4) (units (unknown) date) % unknown) (unknown) (no (unknown) (unknown) Eos % (Auto) 3.5 (units (unknown) date) (2-4) % unknown) (unknown) (no (unknown) (unknown) Esterase (units (unkno wn) date) unknown) (unknown) (no (unknown) (unknown) Estimated GFR > 60 (units (unknown) date) (>60) mL/min unknown) (unknown) (no (unknown) (unknown) Estimated GFR (units ( unknown) date) (>60) mL/min unknown) (unknown) (no (unknown) (unknown) Exam Narrative: (units (unknown) date) unknown) (unknown) (no (unknown) (unknown) Exam documented (units (unknown) date) above, pertinent unknown) findings include: No reproducible chest (unknown) (no (unknown) (unknown) Exam (units (unkno wn) date) unknown) (unknown) (no (unknown) (unknown) FINDINGS:? (units (unk nown) date) unknown) (unknown) (no (unknown) (unknown) GASTROINTESTINAL: (units (unknown) date) Abdomen soft, unknown) non-tender (unknown) (no (unknown) (unknown) GASTROINTESTINAL: (units (unknown) date) negative nausea, unknown) vomiting, abdominal pain (unknown) (no (unknown) (unknown) GENERAL: in no (units (unknown) date) distress, not toxic unknown) not dyspneic (unknown) (no (unknown) (unknown) GENERAL: negative (units (unknown) date) chills, fatigue, unknown) malaise, fever, sweats. (unknown) (no (unknown) (unknown) GERD (units (unkno wn) date) (gastroesophageal unknown) reflux disease) (unknown) (no (unknown) (unknown) : negative (units (u nknown) date) dysuria, frequency, unknown) hematuria (unknown) (no (unknown) (unknown) General (units (unkno wn) date) unknown) (unknown) (no (unknown) (unknown) Globulin (1.7-4.1) (units (unknown) date) g/dL unknown) (unknown) (no (unknown) (unknown) Globulin 4.5 H (units (unknown) date) (1.7-4.1) g/dL unknown) (unknown) (no (unknown) (unknown) Glucose (80-110) (units (unknown) date) mg/dL unknown) (unknown) (no (unknown) (unknown) Glucose 174 H (units ( unknown) date) (80-110) mg/dL unknown) (unknown) (no (unknown) (unknown) HDL Cholesterol (units (unknown) date) (40-60) mg/dL unknown) (unknown) (no (unknown) (unknown) HDL Cholesterol 51 (units (unknown) date) (40-60) mg/dL unknown) (unknown) (no (unknown) (unknown) HEAD: (units (unkno wn) date) Normocephalic. unknown) (unknown) (no (unknown) (unknown) HEENT: negative (units (unknown) date) sinus pain, ear unknown) pain, sore throat (unknown) (no (unknown) (unknown) HPI - Chest Pain (units (unknown) date) unknown) (unknown) (no (unknown) (unknown) HPI narrative: (units (unknown) date) unknown) (unknown) (no (unknown) (unknown) Hct (36-46) % (units ( unknown) date) unknown) (unknown) (no (unknown) (unknown) Hct 36.2 (36-46) % (units (unknown) date) unknown) (unknown) (no (unknown) (unknown) Hearing loss (units (u nknown) date) unknown) (unknown) (no (unknown) (unknown) Hemoglobin A1c (units (unknown) date) (4.0-6.0) % unknown) (unknown) (no (unknown) (unknown) Hemoglobin A1c 7.1 (units (unknown) date) H (4.0-6.0) % unknown) (unknown) (no (unknown) (unknown) Hgb (12.0-16.0) (units (unknown) date) g/dL unknown) (unknown) (no (unknown) (unknown) Hgb 12.2 (units (unkno wn) date) (12.0-16.0) g/dL unknown) (unknown) (no (unknown) (unknown) History of Present (units (unknown) date) Illness unknown) (unknown) (no (unknown) (unknown) History of total (units (unknown) date) hip replacement unknown) (unknown) (no (unknown) (unknown) History of urinary (units (unknown) date) incontinence unknown) (unknown) (no (unknown) (unknown) Home Medications (units (unknown) date) unknown) (unknown) (no (unknown) (unknown) Hydrocodone (units (un known) date) Bitart/Acetaminophe unknown) n (Hydrocodone/Acet 5/325 Tablet) 1 tab PO Q4HR (unknown) (no (unknown) (unknown) IMPRESSION:? (units (u nknown) date) unknown) (unknown) (no (unknown) (unknown) INDICATIONS:? (units ( unknown) date) Chest pain unknown) (unknown) (no (unknown) (unknown) INDICATIONS:? 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 (units (unknown) date) Excellent.? unknown) (unknown) (no (unknown) (unknown) Imaging Data (units (u nknown) date) unknown) (unknown) (no (unknown) (unknown) Imaging studies (units (unknown) date) independently unknown) reviewed: Chest x-ray no acute process, CT chest (unknown) (no (unknown) (unknown) Independently (units ( unknown) date) reviewed EKG as unknown) above normal sinus rhythm rate [address] elevation (unknown) (no (unknown) (unknown) Inhibitor ACHES (units (unknown) date) AND unknown) (unknown) (no (unknown) (unknown) Initial Vital (units ( unknown) date) Signs unknown) (unknown) (no (unknown) (unknown) Initial Vital (units ( unknown) date) Signs: unknown) (unknown) (no (unknown) (unknown) Insulin Human (units ( unknown) date) Lispro (Insulin unknown) Lispro 100 Unit/Ml 3ml Vial) 0 unit SUBCUT ACHS (unknown) (no (unknown) (unknown) [facility] (units (unknown) date) [address] unknown) [place] [address] (unknown) (no (unknown) (unknown) [facility] (units (unknown) date) unknown) (unknown) (no (unknown) (unknown) LDL Cholesterol, (units (unknown) date) Calc (<100) mg/dL unknown) (unknown) (no (unknown) (unknown) LDL Cholesterol, (units (unknown) date) Calc 125 H (<100) unknown) mg/dL (unknown) (no (unknown) (unknown) Lab Data (units (unkno wn) date) unknown) (unknown) (no (unknown) (unknown) Lab Results (units (un known) date) unknown) (unknown) (no (unknown) (unknown) Lab Test results (units (unknown) date) independently unknown) reviewed as above. Pertinent findings: Sodium (unknown) (no (unknown) (unknown) Labs: (units (unkno wn) date) unknown) (unknown) (no (unknown) (unknown) Last Admin: (units (un known) date) 09/28/22 12:46 unknown) Dose: 324 mg (unknown) (no (unknown) (unknown) Last Admin: (units (un known) date) 09/28/22 12:47 unknown) Dose: 0.5 inch (unknown) (no (unknown) (unknown) Last Admin: (units (un known) date) 09/29/22 08:01 unknown) Dose: Not Given (unknown) (no (unknown) (unknown) Last Admin: (units (un known) date) 09/29/22 08:17 unknown) Dose: 325 mg (unknown) (no (unknown) (unknown) Last Admin: (units (un known) date) 09/29/22 08:18 unknown) Dose: 25 mg (unknown) (no (unknown) (unknown) Last Admin: (units (un known) date) 09/29/22 08:20 unknown) Dose: Not Given (unknown) (no (unknown) (unknown) Last Admin: (units (un known) date) 09/29/22 08:21 unknown) Dose: 10 ml (unknown) (no (unknown) (unknown) Last Admin: (units (un known) date) 09/29/22 08:21 unknown) Dose: Not Given (unknown) (no (unknown) (unknown) Last Infusion: (units (unknown) date) 09/28/22 16:24 unknown) Dose: 0 mls/hr (unknown) (no (unknown) (unknown) Last Infusion: (units (unknown) date) 09/28/22 21:38 unknown) Dose: 0 mls/hr (unknown) (no (unknown) (unknown) Last Infusion: (units (unknown) date) 09/28/22 22:00 unknown) Dose: 0 mls/hr (unknown) (no (unknown) (unknown) Limitations: no (units (unknown) date) limitations unknown) (unknown) (no (unknown) (unknown) Lipase (23-300) (units (unknown) date) U/L unknown) (unknown) (no (unknown) (unknown) Lipase 52 (23-300) (units (unknown) date) U/L unknown) (unknown) (no (unknown) (unknown) Loc: ED (units (unkno wn) date) unknown) (unknown) (no (unknown) (unknown) Losartan Potassium (units (unknown) date) (Losartan 50 Mg unknown) Tablet) 100 mg PO DAILY ROX (unknown) (no (unknown) (unknown) Lungs and pleura:? (units (unknown) date) Development of unknown) nodular densities in the right apex and right (unknown) (no (unknown) (unknown) Lungs and pleura:? (units (unknown) date) No acute air space unknown) opacities.? No pleural effusions or (unknown) (no (unknown) (unknown) Lymph # (Auto) (units (unknown) date) (4443-3485) /uL unknown) (unknown) (no (unknown) (unknown) Lymph # (Auto) (units (unknown) date) 2000 (3230-4211) unknown) /uL (unknown) (no (unknown) (unknown) Lymph % (Auto) (units (unknown) date) (25-40) % unknown) (unknown) (no (unknown) (unknown) Lymph % (Auto) (units (unknown) date) 15.3 L (25-40) % unknown) (unknown) (no (unknown) (unknown) [id number] (units (unk nown) date) unknown) (unknown) (no (unknown) (unknown) MCH (26-34) PG (units (unknown) date) unknown) (unknown) (no (unknown) (unknown) MCH 31.2 (26-34) (units (unknown) date) PG unknown) (unknown) (no (unknown) (unknown) MCHC (30-36) % (units (unknown) date) unknown) (unknown) (no (unknown) (unknown) MCHC 33.7 (30-36) (units (unknown) date) % unknown) (unknown) (no (unknown) (unknown) MCV (80-100) fL (units (unknown) date) unknown) (unknown) (no (unknown) (unknown) MCV 92.5 (80-100) (units (unknown) date) fL unknown) (unknown) (no (unknown) (unknown) MDM - Chest Pain (units (unknown) date) unknown) (unknown) (no (unknown) (unknown) MDM Narrative (units ( unknown) date) unknown) (unknown) (no (unknown) (unknown) MDM (units (unkno wn) date) unknown) (unknown) (no (unknown) (unknown) MR#: [id number] (units (unknown) date) unknown) (unknown) (no (unknown) (unknown) MUSCULOSKELETAL: (units (unknown) date) negative muscle or unknown) bony pain (unknown) (no (unknown) (unknown) Magnesium (units (unkn own) date) (1.6-2.3) mg/dL unknown) (unknown) (no (unknown) (unknown) Magnesium 1.7 (units ( unknown) date) (1.6-2.3) mg/dL unknown) (unknown) (no (unknown) (unknown) Magnesium Sulfate (units (unknown) date) (Magnesium Sulfate) unknown) 2 gm in 50 mls @ 25 mls/hr IV NOW ONE (unknown) (no (unknown) (unknown) Mediastinum:? Heart (units (unknown) date) size is normal.? No unknown) pericardial effusion.? No mediastinal or (unknown) (no (unknown) (unknown) Mediastinum:? (units ( unknown) date) Mediastinal unknown) contours appear normal.? Heart size is normal.? Large (unknown) (no (unknown) (unknown) Medical History (units (unknown) date) (Updated 09/28/22 @ unknown) 15:50 by Chad Blanco MD) (unknown) (no (unknown) (unknown) Medical decision (units (unknown) date) making narrative: unknown) (unknown) (no (unknown) (unknown) Medical records (units (unknown) date) reviewed: Records unknown) from primary care office visit (unknown) (no (unknown) (unknown) Medication (units (unk nown) date) Instructions unknown) Recorded Confirmed (unknown) (no (unknown) (unknown) Medication (units (unk nown) date) Instructions unknown) Recorded (unknown) (no (unknown) (unknown) Melatonin (units (unkn own) date) (Melatonin 3 Mg unknown) Tablet) 6 mg PO BEDTIME PRN (unknown) (no (unknown) (unknown) Metoprolol (units (unk nown) date) Succinate unknown) (Metoprolol Er 25 Mg Tablet) 25 mg PO DAILY ROX (unknown) (no (unknown) (unknown) Mode of arrival: (units (unknown) date) Wheelchair unknown) (unknown) (no (unknown) (unknown) [place] # (Auto) (units ( unknown) date) (0-900) /uL unknown) (unknown) (no (unknown) (unknown) [place] # (Auto) 1000 (units (unknown) date) H (0-900) /uL unknown) (unknown) (no (unknown) (unknown) [place] % (Auto) (units ( unknown) date) (3-14) % unknown) (unknown) (no (unknown) (unknown) [place] % (Auto) 7.8 (units (unknown) date) (3-14) % unknown) (unknown) (no (unknown) (unknown) NECK: Trachea (units ( unknown) date) midline. unknown) (unknown) (no (unknown) (unknown) NEURO: AOx4. (units (u nknown) date) unknown) (unknown) (no (unknown) (unknown) NEUROLOGIC: (units (un known) date) negative weakness, unknown) numbness (unknown) (no (unknown) (unknown) Naloxone HCl (units (u nknown) date) (Naloxone 0.4 Mg/Ml unknown) Vial) 0.2 mg IV Q2MIN PRN (unknown) (no (unknown) (unknown) Narrative (units (unkn own) date) unknown) (unknown) (no (unknown) (unknown) Narrative: (units (unk nown) date) unknown) (unknown) (no (unknown) (unknown) Neut # (Auto) (units ( unknown) date) (4270-5295) /uL unknown) (unknown) (no (unknown) (unknown) Neut # (Auto) 9400 (units (unknown) date) H (2752-2779) /uL unknown) (unknown) (no (unknown) (unknown) Neut % (Auto) (units ( unknown) date) (50-75) % unknown) (unknown) (no (unknown) (unknown) Neut % (Auto) 72.5 (units (unknown) date) (50-75) % unknown) (unknown) (no (unknown) (unknown) Nitroglycerin (units ( unknown) date) (Nitroglycerin Oint unknown) 1 Inch/Gm Oint...G.) 0.5 inch TOP NOW ONE (unknown) (no (unknown) (unknown) Ordered: (units (unkno wn) date) unknown) (unknown) (no (unknown) (unknown) Ordering Provider: (units (unknown) date) Chad Blanco MD unknown) (unknown) (no (unknown) (unknown) Orders (units (unkno wn) date) unknown) (unknown) (no (unknown) (unknown) Osteoarthritis (units (unknown) date) unknown) (unknown) (no (unknown) (unknown) Osteoporosis (units (u nknown) date) unknown) (unknown) (no (unknown) (unknown) Oxygen Delivery (units (unknown) date) Method 09/28/22 unknown) 11:33 (unknown) (no (unknown) (unknown) Oxygen Delivery (units (unknown) date) Method Room Air unknown) (unknown) (no (unknown) (unknown) Oxygen Delivery (units (unknown) date) Method unknown) (unknown) (no (unknown) (unknown) PRN Reason: (units (un known) date) Constipation unknown) (unknown) (no (unknown) (unknown) PRN Reason: (units (un known) date) Fever/Mild Pain unknown) (1-3) (unknown) (no (unknown) (unknown) PRN Reason: Flush (units (unknown) date) unknown) (unknown) (no (unknown) (unknown) PRN Reason: (units (un known) date) Hypoglycemia unknown) (unknown) (no (unknown) (unknown) PRN Reason: (units (un known) date) Insomnia unknown) (unknown) (no (unknown) (unknown) PRN Reason: Opiate (units (unknown) date) Reversal unknown) (unknown) (no (unknown) (unknown) PRN Reason: Pain, (units (unknown) date) Moderate (4-6) unknown) (unknown) (no (unknown) (unknown) PRN (units (unkno wn) date) unknown) (unknown) (no (unknown) (unknown) PROCEDURE:? CT (units (unknown) date) CHEST W CON unknown) (unknown) (no (unknown) (unknown) PROCEDURE:? XR (units (unknown) date) CHEST 1V unknown) (unknown) (no (unknown) (unknown) PSYCH: Not (units (unk nown) date) anxious, is unknown) cooperative (unknown) (no (unknown) (unknown) PT (10.1-12.7) (units (unknown) date) SECONDS unknown) (unknown) (no (unknown) (unknown) PT 11.4 (units (unkno wn) date) (10.1-12.7) SECONDS unknown) (unknown) (no (unknown) (unknown) Patient (units (unkno wn) date) Disposition: unknown) Admitted as Observation (unknown) (no (unknown) (unknown) Patient History (units (unknown) date) unknown) (unknown) (no (unknown) (unknown) Patient does have (units (unknown) date) history SVT in had unknown) recent Holter monitor. Primary care is (unknown) (no (unknown) (unknown) Patient here for (units (unknown) date) nonreproducible unknown) chest pain. at bedside. Complains of (unknown) (no (unknown) (unknown) Patient: (units (unkno wn) date) Rosita Devi unknown) MR#: (unknown) (no (unknown) (unknown) Patient: (units (unkno wn) date) Rosita Devi unknown) (unknown) (no (unknown) (unknown) Plt Count (units (unkn own) date) (150-400) X103/uL unknown) (unknown) (no (unknown) (unknown) Plt Count 257 (units ( unknown) date) (150-400) X103/uL unknown) (unknown) (no (unknown) (unknown) Polyethylene (units (u nknown) date) Glycol unknown) (Polyethylene Glycol 3350 17 Gm Powd.Pack) 17 gm PO DAILY (unknown) (no (unknown) (unknown) Potassium (units (unkn own) date) (3.4-5.1) mmol/L unknown) (unknown) (no (unknown) (unknown) Potassium 4.1 (units ( unknown) date) (3.4-5.1) mmol/L unknown) (unknown) (no (unknown) (unknown) Previous Rx's (units ( unknown) date) unknown) (unknown) (no (unknown) (unknown) Procedure: CT (units ( unknown) date) chest w con unknown) (unknown) (no (unknown) (unknown) Procedure: XR (units ( unknown) date) chest 1V unknown) (unknown) (no (unknown) (unknown) Pulmonary fibrosis (units (unknown) date) unknown) (unknown) (no (unknown) (unknown) Pulse Oximetry 100 (units (unknown) date) 100 unknown) (unknown) (no (unknown) (unknown) Pulse Oximetry 100 (units (unknown) date) unknown) (unknown) (no (unknown) (unknown) Pulse Oximetry 97 (units (unknown) date) 09/28/22 11:33 unknown) (unknown) (no (unknown) (unknown) Pulse Oximetry 97 (units (unknown) date) 100 100 unknown) (unknown) (no (unknown) (unknown) Pulse Rate 76 81 (units (unknown) date) unknown) (unknown) (no (unknown) (unknown) Pulse Rate 76 (units ( unknown) date) unknown) (unknown) (no (unknown) (unknown) Pulse Rate 78 81 (units (unknown) date) unknown) (unknown) (no (unknown) (unknown) Pulse Rate 80 87 (units (unknown) date) unknown) (unknown) (no (unknown) (unknown) Pulse Rate 81 87 (units (unknown) date) unknown) (unknown) (no (unknown) (unknown) Pulse Rate 81 (units ( unknown) date) unknown) (unknown) (no (unknown) (unknown) Pulse Rate 82 87 (units (unknown) date) unknown) (unknown) (no (unknown) (unknown) Pulse Rate 82 (units ( unknown) date) unknown) (unknown) (no (unknown) (unknown) Pulse Rate 85 (units ( unknown) date) unknown) (unknown) (no (unknown) (unknown) Pulse Rate 86 84 (units (unknown) date) unknown) (unknown) (no (unknown) (unknown) Pulse Rate 86 (units ( unknown) date) unknown) (unknown) (no (unknown) (unknown) Pulse Rate 88 85 (units (unknown) date) unknown) (unknown) (no (unknown) (unknown) Pulse Rate 94 H (units (unknown) date) 09/28/22 11:33 unknown) (unknown) (no (unknown) (unknown) Pulse Rate 94 H 89 (units (unknown) date) 89 unknown) (unknown) (no (unknown) (unknown) RACING (units (unkno wn) date) unknown) (unknown) (no (unknown) (unknown) RBC (4.0-5.2) (units ( unknown) date) X106/uL unknown) (unknown) (no (unknown) (unknown) RBC 3.91 L (units (unk nown) date) (4.0-5.2) X106/uL unknown) (unknown) (no (unknown) (unknown) RDW (11.6-14.8) % (units (unknown) date) unknown) (unknown) (no (unknown) (unknown) RDW 14.7 (units (unkno wn) date) (11.6-14.8) % unknown) (unknown) (no (unknown) (unknown) RESPIRATORY: Clear (units (unknown) date) to auscultation. unknown) Breath sounds equal bilaterally. No wheezes, (unknown) (no (unknown) (unknown) RESPIRATORY: (units (u nknown) date) Positive dyspnea, unknown) negative cough (unknown) (no (unknown) (unknown) ROS Unobtainable: (units (unknown) date) All systems unknown) reviewed + are unremarkable except as noted in HPI (unknown) (no (unknown) (unknown) Radiologist's (units ( unknown) date) Impression: unknown) (unknown) (no (unknown) (unknown) Re-evaluations: (units (unknown) date) 3:48 p.m.. Patient unknown) chest pain-free after nitro paste. I did (unknown) (no (unknown) (unknown) Related Data (units (u nknown) date) unknown) (unknown) (no (unknown) (unknown) Respiratory Rate (units (unknown) date) 18 09/28/22 11:33 unknown) (unknown) (no (unknown) (unknown) Respiratory Rate (units (unknown) date) 18 15 29 H unknown) (unknown) (no (unknown) (unknown) Respiratory Rate (units (unknown) date) 21 unknown) (unknown) (no (unknown) (unknown) Respiratory Rate (units (unknown) date) 24 unknown) (unknown) (no (unknown) (unknown) Respiratory Rate (units (unknown) date) 33 H unknown) (unknown) (no (unknown) (unknown) Respiratory Rate (units (unknown) date) unknown) (unknown) (no (unknown) (unknown) Review of Systems (units (unknown) date) unknown) (unknown) (no (unknown) (unknown) SARS-CoV-2 (PCR) (units (unknown) date) (Negative) unknown) (unknown) (no (unknown) (unknown) SARS-CoV-2 (PCR) (units (unknown) date) Negative (Negative) unknown) (unknown) (no (unknown) (unknown) ROX; Protocol (units ( unknown) date) unknown) (unknown) (no (unknown) (unknown) SKIN: Warm and dry (units (unknown) date) unknown) (unknown) (no (unknown) (unknown) SKIN: negative (units (unknown) date) rash, skin lesions unknown) (unknown) (no (unknown) (unknown) STOMACH (units (unkno wn) date) unknown) (unknown) (no (unknown) (unknown) SVT (units (unkno wn) date) (supraventricular unknown) tachycardia) (unknown) (no (unknown) (unknown) Sennosides (units (unk nown) date) (Sennosides 8.6 Mg unknown) Tablet) 8.6 mg PO BID PRN (unknown) (no (unknown) (unknown) Shoulder pain (units ( unknown) date) unknown) (unknown) (no (unknown) (unknown) Signed By: (units (unk nown) date) unknown) (unknown) (no (unknown) (unknown) Signed (units (unkno wn) date) unknown) (unknown) (no (unknown) (unknown) Sleep apnea (units (un known) date) unknown) (unknown) (no (unknown) (unknown) Smoking Status: (units (unknown) date) Former smoker unknown) (unknown) (no (unknown) (unknown) Social History (units (unknown) date) unknown) (unknown) (no (unknown) (unknown) Sodium (137-145) (units (unknown) date) mmol/L unknown) (unknown) (no (unknown) (unknown) Sodium 136 L (units (u nknown) date) (137-145) mmol/L unknown) (unknown) (no (unknown) (unknown) Sodium Chloride (units (unknown) date) (Normal Saline unknown) 0.9%) 250 mls @ 21 mls/hr IV Q24H PRN (unknown) (no (unknown) (unknown) Sodium Chloride (units (unknown) date) (Normal Saline unknown) 0.9%) 500 mls @ 1,000 mls/hr IV BOLUS ONE (unknown) (no (unknown) (unknown) Sodium Chloride (units (unknown) date) (Sodium Chloride unknown) 0.9% Flush) 10 ml IV BID ROX (unknown) (no (unknown) (unknown) Sodium Chloride (units (unknown) date) (Sodium Chloride unknown) 0.9% Flush) 10 ml IV PRN PRN (unknown) (no (unknown) (unknown) Source: patient (units (unknown) date) unknown) (unknown) (no (unknown) (unknown) Stated Complaint: (units (unknown) date) heart problems sent unknown) by Dr. Holder (unknown) (no (unknown) (unknown) [id number] (units (unknown) date) Reductase AdvReac unknown) Intermediate MUSCLE Verified 09/28/22 11:32 (unknown) (no (unknown) (unknown) Stop: 09/28/22 (units (unknown) date) 12:31 unknown) (unknown) (no (unknown) (unknown) Stop: 09/28/22 (units (unknown) date) 15:43 unknown) (unknown) (no (unknown) (unknown) Stop: 09/28/22 (units (unknown) date) 19:58 unknown) (unknown) (no (unknown) (unknown) Substance Use (units ( unknown) date) Type: does not use unknown) (unknown) (no (unknown) (unknown) Surgical History (units (unknown) date) (Updated 06/14/22 @ unknown) 22:24 by Sherita Carreon) (unknown) (no (unknown) (unknown) Surgical changes (units (unknown) date) and devices:? unknown) None.? (unknown) (no (unknown) (unknown) TECHNIQUE:? One (units (unknown) date) view of the chest unknown) was acquired.? (unknown) (no (unknown) (unknown) TECHNIQUE:? (units (un known) date) unknown) (unknown) (no (unknown) (unknown) TSH (0.47-4.68) (units (unknown) date) uIU/mL unknown) (unknown) (no (unknown) (unknown) TSH 1.35 (units (unkno wn) date) (0.47-4.68) uIU/mL unknown) (unknown) (no (unknown) (unknown) Temperature 96.7 F (units (unknown) date) L 09/28/22 11:33 unknown) (unknown) (no (unknown) (unknown) Temperature 96.7 F (units (unknown) date) L unknown) (unknown) (no (unknown) (unknown) Temperature (units (un known) date) unknown) (unknown) (no (unknown) (unknown) Time Seen by (units (u nknown) date) Provider: 09/28/22 unknown) 11:43 (unknown) (no (unknown) (unknown) Total Bilirubin (units (unknown) date) (0.2-1.3) mg/dL unknown) (unknown) (no (unknown) (unknown) Total Bilirubin (units (unknown) date) 0.5 (0.2-1.3) mg/dL unknown) (unknown) (no (unknown) (unknown) Total Creatine (units (unknown) date) Kinase (30-135) U/L unknown) (unknown) (no (unknown) (unknown) Total Creatine (units (unknown) date) Kinase 48 (30-135) unknown) U/L (unknown) (no (unknown) (unknown) Total Creatine (units (unknown) date) Kinase 51 (30-135) unknown) U/L (unknown) (no (unknown) (unknown) Total Protein (units ( unknown) date) (6.3-8.2) g/dL unknown) (unknown) (no (unknown) (unknown) Total Protein 8.9 (units (unknown) date) H (6.3-8.2) g/dL unknown) (unknown) (no (unknown) (unknown) Treatments: (units (un known) date) Aspirin/nitro unknown) paste/normal saline (unknown) (no (unknown) (unknown) Triglycerides (units ( unknown) date) (35-150) mg/dL unknown) (unknown) (no (unknown) (unknown) Triglycerides 87 (units (unknown) date) (35-150) mg/dL unknown) (unknown) (no (unknown) (unknown) Troponin I < 0.012 (units (unknown) date) (0.01-0.034) ng/mL unknown) (unknown) (no (unknown) (unknown) Troponin I (units (unk nown) date) (0.01-0.034) ng/mL unknown) (unknown) (no (unknown) (unknown) 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, 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 insulin use (unknown) (no (unknown) (unknown) Upset (units (unkno wn) date) unknown) (unknown) (no (unknown) (unknown) Urine Dip (units (unkn own) date) unknown) (unknown) (no (unknown) (unknown) Urine Specific (units (unknown) date) [place] 1.015 unknown) (unknown) (no (unknown) (unknown) Vital Signs - 8 hr (units (unknown) date) unknown) (unknown) (no (unknown) (unknown) Vital Signs (units (un known) date) unknown) (unknown) (no (unknown) (unknown) Vital signs: (units (u nknown) date) unknown) (unknown) (no (unknown) (unknown) WBC (4.5-11.0) (units (unknown) date) X103/uL unknown) (unknown) (no (unknown) (unknown) WBC 12.9 H (units (unk nown) date) (4.5-11.0) X103/uL unknown) (unknown) (no (unknown) (unknown) XRay Report (units (un known) date) unknown) (unknown) (no (unknown) (unknown) [Embedded Image (units (unknown) date) Not Available] unknown) (unknown) (no (unknown) (unknown) [[id number] (units (unknown) date) REDUCTASE WEIGHT unknown) LOSS (unknown) (no (unknown) (unknown) abdominal bowel (units (unknown) date) unknown) (unknown) (no (unknown) (unknown) acetaminophen 500 (units (unknown) date) mg tablet 500 mg PO unknown) Q6HP PRN pain ##0 05/24/17 09/28/22 (unknown) (no (unknown) (unknown) adenopathy by size (units (unknown) date) criteria.? Thoracic unknown) aorta and central pulmonary arteries are (unknown) (no (unknown) (unknown) alcohol intake (units (unknown) date) frequency: 0-2 unknown) drinks per day (unknown) (no (unknown) (unknown) alcohol intake: (units (unknown) date) current unknown) (unknown) (no (unknown) (unknown) alendronate 70 mg (units (unknown) date) tablet (Fosamax) 70 unknown) mg PO QWEEK 09/26/22 09/28/22 (unknown) (no (unknown) (unknown) alendronate sodium (units (unknown) date) AdvReac unknown) Intermediate Gastrointestinal Verified 09/28/22 18:18 (unknown) (no (unknown) (unknown) and below (units (unkn own) date) unknown) (unknown) (no (unknown) (unknown) and/or (units (unkno wn) date) unknown) (unknown) (no (unknown) (unknown) angina angina (units ( unknown) date) atypical chest pain unknown) (unknown) (no (unknown) (unknown) appear (units (unkno wn) date) unknown) (unknown) (no (unknown) (unknown) base.? 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 (unknown) (no (unknown) (unknown) calcification.? (units (unknown) date) unknown) (unknown) (no (unknown) (unknown) chest (units (unkno wn) date) pain/echocardiogram unknown) /stress test (unknown) (no (unknown) (unknown) compression (units (un known) date) unknown) (unknown) (no (unknown) (unknown) considering (units (un known) date) placing her on unknown) metoprolol. No recent illness. Does have history of (unknown) (no (unknown) (unknown) coronal and (units (un known) date) sagittal reformats unknown) and 7 mm axial MIP were acquired.? For radiation (unknown) (no (unknown) (unknown) dose (units (unkno wn) date) unknown) (unknown) (no (unknown) (unknown) ezetimibe [From (units (unknown) date) ZETIA] AdvReac Mild unknown) COUGHING Verified 09/28/22 11:32 (unknown) (no (unknown) (unknown) for admit. (units (unk nown) date) unknown) (unknown) (no (unknown) (unknown) fractures.? No (units ( unknown) date) axillary or unknown) supraclavicular adenopathy by size criteria.? Thyroid (unknown) (no (unknown) (unknown) from the (units (unkno wn) date) unknown) (unknown) (no (unknown) (unknown) from (units (unkno wn) date) unknown) (unknown) (no (unknown) (unknown) gland (units (unkno wn) date) unknown) (unknown) (no (unknown) (unknown) glimepiride 1 mg (units (unknown) date) tablet (Amaryl) 1 unknown) mg PO DAILY #0 tabs 09/26/22 09/28/22 (unknown) (no (unknown) (unknown) hernia. (units (unkno wn) date) unknown) (unknown) (no (unknown) (unknown) hiatal (units (unkno wn) date) unknown) (unknown) (no (unknown) (unknown) hilar (units (unkno wn) date) unknown) (unknown) (no (unknown) (unknown) household members: (units (unknown) date) spouse unknown) (unknown) (no (unknown) (unknown) hydrocodone 5 (units ( unknown) date) mg-acetaminophen unknown) 325 0.5 - 1 tab PO BEDTIME PRN pain 08/24/22 (unknown) (no (unknown) (unknown) interstitial (units (u nknown) date) unknown) (unknown) (no (unknown) (unknown) kV according to (units (unknown) date) patient size.? unknown) (unknown) (no (unknown) (unknown) loops are normal (units (unknown) date) in caliber.? unknown) Incidental cholelithiasis (unknown) (no (unknown) (unknown) losartan 100 mg (units (unknown) date) tablet 100 mg PO unknown) DAILY blood pressure #90 08/24/22 (unknown) (no (unknown) (unknown) lung (units (unkno wn) date) unknown) (unknown) (no (unknown) (unknown) mg tablet #30 tabs (units (unknown) date) unknown) (unknown) (no (unknown) (unknown) no acute process (units (unknown) date) unknown) (unknown) (no (unknown) (unknown) normal in (units (unkn own) date) unknown) (unknown) (no (unknown) (unknown) obin 12.2 (units (unkn own) date) hematocrit 36.2 unknown) (unknown) (no (unknown) (unknown) omeprazole [From (units (unknown) date) PRILOSEC] AdvReac unknown) Intermediate UPSET Verified 09/28/22 11:32 (unknown) (no (unknown) (unknown) or chills. (units (unk nown) date) unknown) (unknown) (no (unknown) (unknown) or depression (units ( unknown) date) unknown) (unknown) (no (unknown) (unknown) ordered (units (unkno wn) date) unknown) (unknown) (no (unknown) (unknown) oxygen #1 ea (units (u nknown) date) 06/17/22 unknown) (unknown) (no (unknown) (unknown) oxygen (units (unkno wn) date) concentrator #1 ea unknown) 08/18/22 (unknown) (no (unknown) (unknown) pain relieved with (units (unknown) date) nitro. Will need unknown) echocardiogram and stress test. Reviewed (unknown) (no (unknown) (unknown) pain/tenderness (units (unknown) date) unknown) (unknown) (no (unknown) (unknown) pantoprazole 40 mg (units (unknown) date) tablet,delayed 40 unknown) mg PO DAILY Hiatal hernia--gerd 09/26/22 (unknown) (no (unknown) (unknown) patient repeating (units (unknown) date) repeat troponin and unknown) CT scan imaging. (unknown) (no (unknown) (unknown) pneumothorax.? (units (unknown) date) unknown) (unknown) (no (unknown) (unknown) prior.? Did dense (units (unknown) date) mitral valve unknown) annular and coronary artery vascular (unknown) (no (unknown) (unknown) pulmonary apices (units (unknown) date) to the posterior unknown) costophrenic angles.? 1 mm axial lung, 5 mm (unknown) (no (unknown) (unknown) pulmonary (units (unkn own) date) fibrosis. No recent unknown) illness otherwise no cough cold congestion fever (unknown) (no (unknown) (unknown) rales, or rhonchi. (units (unknown) date) unknown) (unknown) (no (unknown) (unknown) reduction, the (units ( unknown) date) following was unknown) used:? automated exposure control, adjustment of mA (unknown) (no (unknown) (unknown) release (units (unkno wn) date) unknown) (unknown) (no (unknown) (unknown) remain unchanged (units (unknown) date) from the prior unknown) (unknown) (no (unknown) (unknown) reticulonodular (units (unknown) date) thickening may unknown) reflect fibrosis, stable (unknown) (no (unknown) (unknown) review results (units (unknown) date) with patient and unknown) . They do understand agree for admit for (unknown) (no (unknown) (unknown) size.? Esophagus (units (unknown) date) is normal in unknown) caliber.? 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 (unknown) (no (unknown) (unknown) substernal (units (unk nown) date) pressure and unknown) shortness of breath since last night. Patient did have (unknown) (no (unknown) (unknown) tabs (units (unkno wn) date) unknown) (unknown) (no (unknown) (unknown) thick (units (unkno wn) date) unknown) (unknown) (no (unknown) (unknown) tramadol (units (unkno wn) date) [TRAMADOL] Allergy unknown) Intermediate HEART Verified 09/28/22 11:32 (unknown) (no (unknown) (unknown) unremarkable .? (units (unknown) date) Several unknown) wedge-shaped compression fractures in the midthoracic (unknown) (no (unknown) (unknown) unremarkable.? (units (unknown) date) unknown) (unknown) (no (unknown) (unknown) with patient and (units (unknown) date) agree for unknown) admit. Reviewed with hospitalist and agrees Result panel 305 (unknown) (no (unknown) (unknown) (no value) (units (unk nown) date) unknown) (unknown) (no (unknown) (unknown) 09/26/22 [History (units (unknown) date) Confirmed 10/26/22] unknown) (unknown) (no (unknown) (unknown) 10/26/22 (units (unkno wn) date) unknown) (unknown) (no (unknown) (unknown) 10/26/22] (units (unkn own) date) unknown) (unknown) (no (unknown) (unknown) 05/24/17 [History (units (unknown) date) Confirmed 10/26/22] unknown) (unknown) (no (unknown) (unknown) 12:54) (units (unkno wn) date) unknown) (unknown) (no (unknown) (unknown) 87 year old female (units (unknown) date) presents to clinic unknown) for ER follow up. (unknown) (no (unknown) (unknown) Adverse Reaction (units (unknown) date) (Intermediate, unknown) Verified 10/26/22 12:54) (unknown) (no (unknown) (unknown) Age/Sex: 87 / F (units (unknown) date) Date of Service: unknown) (unknown) (no (unknown) (unknown) Allergies (units (unkn own) date) unknown) (unknown) (no (unknown) (unknown) [place] (units ( unknown) date) [id number] unknown) (unknown) (no (unknown) (unknown) Anesthesia (units (unk nown) date) unknown) (unknown) (no (unknown) (unknown) Attending Dr: Irma (units (unknown) date) Glory D.OPower unknown) (unknown) (no (unknown) (unknown) Benign essential (units (unknown) date) HTN unknown) (unknown) (no (unknown) (unknown) COUGHING (units (unkno wn) date) unknown) (unknown) (no (unknown) (unknown) Chronic back pain (units (unknown) date) unknown) (unknown) (no (unknown) (unknown) Confirmed (units (unkn own) date) 10/26/22] unknown) (unknown) (no (unknown) (unknown) : 1935 (units (unknown) date) Acct:[id number] unknown) (unknown) (no (unknown) (unknown) Dept at (units (unkno wn) date) . unknown) (unknown) (no (unknown) (unknown) Documented By: (units (unknown) date) Irma Holder unknown) 10/26/22 1253 (unknown) (no (unknown) (unknown) Draft (units (unkno wn) date) unknown) (unknown) (no (unknown) (unknown) Family Practice (units (unknown) date) Office Visit unknown) (unknown) (no (unknown) (unknown) [facility] (units ([facility] date[facility] unknown) (unknown) (no (unknown) (unknown) GERD (units (unkno wn) date) (gastroesophageal unknown) reflux disease) (unknown) (no (unknown) (unknown) Gastrointestinal (units (unknown) date) Upset unknown) (unknown) (no (unknown) (unknown) HEART RACING (units (u nknown) date) unknown) (unknown) (no (unknown) (unknown) Health Management (units (unknown) date) reviewed with unknown) patient: Yes (unknown) (no (unknown) (unknown) Health Management (units (unknown) date) unknown) (unknown) (no (unknown) (unknown) Hearing loss (units (u nknown) date) unknown) (unknown) (no (unknown) (unknown) History of total (units (unknown) date) hip replacement unknown) (unknown) (no (unknown) (unknown) History of urinary (units (unknown) date) incontinence unknown) (unknown) (no (unknown) (unknown) Intake Note: (units (u nknown) date) unknown) (unknown) (no (unknown) (unknown) Intake performed (units (unknown) date) by: Dennise Lundy unknown) (unknown) (no (unknown) (unknown) Intake (units (unkno wn) date) unknown) (unknown) (no (unknown) (unknown) Intake- Clincial (units (unknown) date) Staff unknown) (unknown) (no (unknown) (unknown) Loc: [facility] (units (unkno wn) date) unknown) (unknown) (no (unknown) (unknown) [phone] (units (unk nown) date) unknown) (unknown) (no (unknown) (unknown) MUSCLE ACHES AND (units (unknown) date) WEIGHT LOSS unknown) (unknown) (no (unknown) (unknown) Medical History (units (unknown) date) (Updated 09/28/22 @ unknown) 15:50 by Chad Blanco MD) (unknown) (no (unknown) (unknown) Medications (units (un known) date) unknown) (unknown) (no (unknown) (unknown) Osteoarthritis (units (unknown) date) unknown) (unknown) (no (unknown) (unknown) Osteoporosis (units (u nknown) date) unknown) (unknown) (no (unknown) (unknown) PFSH (units (unkno wn) date) unknown) (unknown) (no (unknown) (unknown) Patient: (units (unkno wn) date) Rosita Devi unknown) MR#: (unknown) (no (unknown) (unknown) Pulmonary fibrosis (units (unknown) date) unknown) (unknown) (no (unknown) (unknown) Reason For Visit (units (unknown) date) unknown) (unknown) (no (unknown) (unknown) SVT (units (unkno wn) date) (supraventricular unknown) tachycardia) (unknown) (no (unknown) (unknown) Shoulder pain (units ( unknown) date) unknown) (unknown) (no (unknown) (unknown) Signed By: (units (unk nown) date) unknown) (unknown) (no (unknown) (unknown) Sleep apnea (units (un known) date) unknown) (unknown) (no (unknown) (unknown) Smoking Status: (units (unknown) date) Former smoker unknown) (unknown) (no (unknown) (unknown) Social History (units (unknown) date) unknown) (unknown) (no (unknown) (unknown) [id number] (units (unknown) date) Reductase Inhibitor unknown) [ACOOPKT-KRE-HAO REDUCTASE INHIBITOR] (unknown) (no (unknown) (unknown) Surgical History (units (unknown) date) (Updated 06/14/22 @ unknown) 22:24 by Sherita Carreon) (unknown) (no (unknown) (unknown) This note may have (units (unknown) date) been all or unknown) partially generated using voice recognition (unknown) (no (unknown) (unknown) Tobacco + (units (unkn own) date) Substance Use unknown) (unknown) (no (unknown) (unknown) Tobacco Status (units (unknown) date) unknown) (unknown) (no (unknown) (unknown) 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, 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 insulin use (unknown) (no (unknown) (unknown) 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 (units ( unknown) date) unknown) (unknown) (no (unknown) (unknown) Visit Reasons: ER (units (unknown) date) f/up chest pain unknown) (unknown) (no (unknown) (unknown) acetaminophen 500 (units (unknown) date) mg tablet (Tylenol unknown) Extra Strength) 500 mg PO Q6HP PRN pain ##0 (unknown) (no (unknown) (unknown) alcohol intake: (units (unknown) date) current unknown) (unknown) (no (unknown) (unknown) alendronate 70 mg (units (unknown) date) tablet (Fosamax) 70 unknown) mg PO QWEEK 09/26/22 [History Confirmed (unknown) (no (unknown) (unknown) alendronate sodium (units (unknown) date) Adverse Reaction unknown) (Intermediate, Verified 10/26/22 12:54) (unknown) (no (unknown) (unknown) ezetimibe [From (units (unknown) date) ZETIA] Adverse unknown) Reaction (Mild, Verified 10/26/22 12:54) (unknown) (no (unknown) (unknown) glimepiride 1 mg (units (unknown) date) tablet (Amaryl) 1 unknown) mg PO DAILY #0 tabs 09/26/22 [History (unknown) (no (unknown) (unknown) have occurred. If (units (unknown) date) there are any unknown) questions, please contact the Medical Records (unknown) (no (unknown) (unknown) household members: (units (unknown) date) spouse unknown) (unknown) (no (unknown) (unknown) hydrocodone 5 (units (u nknown) date) mg-acetaminophen unknown) 325 mg tablet 0.5 - 1 tab PO BEDTIME PRN pain #30 (unknown) (no (unknown) (unknown) losartan 100 mg (units (unknown) date) tablet 100 mg PO unknown) DAILY blood pressure #90 tabs 08/24/22 [Rx (unknown) (no (unknown) (unknown) may occur. (units (unk nown) date) Occasional unknown) wrong-word or 'sound-alike' substitutions may have (unknown) (no (unknown) (unknown) occurred due to (units (unknown) date) the inherent unknown) limitations of voice recognition software. Please (unknown) (no (unknown) (unknown) omeprazole [From (units (unknown) date) PRILOSEC] Adverse unknown) Reaction (Intermediate, Verified 10/26/22 (unknown) (no (unknown) (unknown) oxygen #1 ea (units (u nknown) date) 06/17/22 [Rx unknown) Confirmed 10/26/22] (unknown) (no (unknown) (unknown) oxygen (units (unkno wn) date) concentrator #1 ea unknown) 08/18/22 [Rx Confirmed 10/26/22] (unknown) (no (unknown) (unknown) pantoprazole 40 mg (units (unknown) date) tablet,delayed unknown) release 40 mg PO DAILY Hiatal hernia--gerd (unknown) (no (unknown) (unknown) read the note (units ( unknown) date) carefully and unknown) recognize, using context, where these substitutions (unknown) (no (unknown) (unknown) software. Although (units (unknown) date) every effort is unknown) made to edit content, hay stacker errors (unknown) (no (unknown) (unknown) tabs 08/24/22 [Rx (units (unknown) date) Confirmed 10/26/22] unknown) (unknown) (no (unknown) (unknown) tramadol (units (unkno wn) date) [TRAMADOL] Allergy unknown) (Intermediate, Verified 10/26/22 12:54) Result panel 306 (unknown) (no (unknown) (unknown) (no value) (units (unk nown) date) unknown) (unknown) (no (unknown) (unknown) 09/26/22 [History (units (unknown) date) Confirmed 10/26/22] unknown) (unknown) (no (unknown) (unknown) 10/26/22 (units (unkno wn) date) unknown) (unknown) (no (unknown) (unknown) 10/26/22] (units (unkn own) date) unknown) (unknown) (no (unknown) (unknown) 05/24/17 [History (units (unknown) date) Confirmed 10/26/22] unknown) (unknown) (no (unknown) (unknown) 12:54) (units (unkno wn) date) unknown) (unknown) (no (unknown) (unknown) 12:58 (units (unkno wn) date) unknown) (unknown) (no (unknown) (unknown) 87 year old female (units (unknown) date) presents to clinic unknown) for ER follow up. (unknown) (no (unknown) (unknown) Adverse Reaction (units (unknown) date) (Intermediate, unknown) Verified 10/26/22 12:54) (unknown) (no (unknown) (unknown) Age/Sex: 87 / F (units (unknown) date) Date of Service: unknown) (unknown) (no (unknown) (unknown) Allergies (units (unkn own) date) unknown) (unknown) (no (unknown) (unknown) [place] (units ( unknown) date) [id number] unknown) (unknown) (no (unknown) (unknown) Anesthesia (units (unk nown) date) unknown) (unknown) (no (unknown) (unknown) Attending Dr: Irma (units (unknown) date) Glory D.OPower unknown) (unknown) (no (unknown) (unknown) Benign essential (units (unknown) date) HTN unknown) (unknown) (no (unknown) (unknown) COUGHING (units (unkno wn) date) unknown) (unknown) (no (unknown) (unknown) Chronic back pain (units (unknown) date) unknown) (unknown) (no (unknown) (unknown) Confirmed (units (unkn own) date) 10/26/22] unknown) (unknown) (no (unknown) (unknown) : 1935 (units (unknown) date) Acct:[id number] unknown) (unknown) (no (unknown) (unknown) Dept at (units (unkno wn) date) . unknown) (unknown) (no (unknown) (unknown) Documented By: (units (unknown) date) Irma Holder unknown) 10/26/22 1253 (unknown) (no (unknown) (unknown) Draft (units (unkno wn) date) unknown) (unknown) (no (unknown) (unknown) Family Practice (units (unknown) date) Office Visit unknown) (unknown) (no (unknown) (unknown) [facility] (units ([facility] date) [facility] unknown) (unknown) (no (unknown) (unknown) GERD (units (unkno wn) date) (gastroesophageal unknown) reflux disease) (unknown) (no (unknown) (unknown) Gastrointestinal (units (unknown) date) Upset unknown) (unknown) (no (unknown) (unknown) HEART RACING (units (u nknown) date) unknown) (unknown) (no (unknown) (unknown) Health Management (units (unknown) date) reviewed with unknown) patient: Yes (unknown) (no (unknown) (unknown) Health Management (units (unknown) date) unknown) (unknown) (no (unknown) (unknown) Hearing loss (units (u nknown) date) unknown) (unknown) (no (unknown) (unknown) History of total (units (unknown) date) hip replacement unknown) (unknown) (no (unknown) (unknown) History of urinary (units (unknown) date) incontinence unknown) (unknown) (no (unknown) (unknown) Intake Note: (units (u nknown) date) unknown) (unknown) (no (unknown) (unknown) Intake performed (units (unknown) date) by: Dennise Lundy unknown) (unknown) (no (unknown) (unknown) Intake (units (unkno wn) date) unknown) (unknown) (no (unknown) (unknown) Intake- Clincial (units (unknown) date) Staff unknown) (unknown) (no (unknown) (unknown) Loc: [facility] (units (unkno wn) date) unknown) (unknown) (no (unknown) (unknown) [phone] (units (unk nown) date) unknown) (unknown) (no (unknown) (unknown) MUSCLE ACHES AND (units (unknown) date) WEIGHT LOSS unknown) (unknown) (no (unknown) (unknown) Medical History (units (unknown) date) (Updated 09/28/22 @ unknown) 15:50 by Chad Blanco MD) (unknown) (no (unknown) (unknown) Medications (units (un known) date) unknown) (unknown) (no (unknown) (unknown) Osteoarthritis (units (unknown) date) unknown) (unknown) (no (unknown) (unknown) Osteoporosis (units (u nknown) date) unknown) (unknown) (no (unknown) (unknown) PFSH (units (unkno wn) date) unknown) (unknown) (no (unknown) (unknown) Patient: (units (unkno wn) date) Rosita Devi L unknown) MR#: (unknown) (no (unknown) (unknown) Prescribed (units (unk nown) date) 10/26/22 [History unknown) Confirmed 10/26/22] (unknown) (no (unknown) (unknown) Pulmonary fibrosis (units (unknown) date) unknown) (unknown) (no (unknown) (unknown) Reason For Visit (units (unknown) date) unknown) (unknown) (no (unknown) (unknown) SVT (units (unkno wn) date) (supraventricular unknown) tachycardia) (unknown) (no (unknown) (unknown) Shoulder pain (units ( unknown) date) unknown) (unknown) (no (unknown) (unknown) Signed By: (units (unk nown) date) unknown) (unknown) (no (unknown) (unknown) Sleep apnea (units (un known) date) unknown) (unknown) (no (unknown) (unknown) Smoking Status: (units (unknown) date) Former smoker unknown) (unknown) (no (unknown) (unknown) Social History (units (unknown) date) unknown) (unknown) (no (unknown) (unknown) [id number] (units (unknown) date) Reductase Inhibitor unknown) [[id number]-MYR REDUCTASE INHIBITOR] (unknown) (no (unknown) (unknown) Surgical History (units (unknown) date) (Updated 06/14/22 @ unknown) 22:24 by Sherita Carreon) (unknown) (no (unknown) (unknown) This note may have (units (unknown) date) been all or unknown) partially generated using voice recognition (unknown) (no (unknown) (unknown) Tobacco + (units (unkn own) date) Substance Use unknown) (unknown) (no (unknown) (unknown) Tobacco Status (units (unknown) date) unknown) (unknown) (no (unknown) (unknown) 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, 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 insulin use (unknown) (no (unknown) (unknown) 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 (units ( unknown) date) unknown) (unknown) (no (unknown) (unknown) Visit Reasons: ER (units (unknown) date) f/up chest pain unknown) (unknown) (no (unknown) (unknown) Vitals (units (unkno wn) date) unknown) (unknown) (no (unknown) (unknown) Weight 139 lb (units ( unknown) date) unknown) (unknown) (no (unknown) (unknown) acetaminophen 500 (units (unknown) date) mg tablet (Tylenol unknown) Extra Strength) 500 mg PO Q6HP PRN pain ##0 (unknown) (no (unknown) (unknown) alcohol intake: (units (unknown) date) current unknown) (unknown) (no (unknown) (unknown) alendronate 70 mg (units (unknown) date) tablet (Fosamax) 70 unknown) mg PO QWEEK 09/26/22 [History Confirmed (unknown) (no (unknown) (unknown) alendronate sodium (units (unknown) date) Adverse Reaction unknown) (Intermediate, Verified 10/26/22 12:54) (unknown) (no (unknown) (unknown) ezetimibe [From (units (unknown) date) ZETIA] Adverse unknown) Reaction (Mild, Verified 10/26/22 12:54) (unknown) (no (unknown) (unknown) glimepiride 1 mg (units (unknown) date) tablet (Amaryl) 1 unknown) mg PO DAILY #0 tabs 09/26/22 [History (unknown) (no (unknown) (unknown) have occurred. If (units (unknown) date) there are any unknown) questions, please contact the Medical Records (unknown) (no (unknown) (unknown) household members: (units (unknown) date) spouse unknown) (unknown) (no (unknown) (unknown) hydrocodone 5 (units (u nknown) date) mg-acetaminophen unknown) 325 mg tablet 0.5 - 1 tab PO BEDTIME PRN pain #30 (unknown) (no (unknown) (unknown) losartan 100 mg (units (unknown) date) tablet 100 mg PO unknown) DAILY blood pressure #90 tabs 08/24/22 [Rx (unknown) (no (unknown) (unknown) may occur. (units (unk nown) date) Occasional unknown) wrong-word or 'sound-alike' substitutions may have (unknown) (no (unknown) (unknown) metoprolol (units (unk nown) date) tartrate 100 unknown) mg-hydrochlorothiaz dennis 25 mg tablet 2 tab PO DAILY DrPower (unknown) (no (unknown) (unknown) occurred due to (units (unknown) date) the inherent unknown) limitations of voice recognition software. Please (unknown) (no (unknown) (unknown) omeprazole [From (units (unknown) date) PRILOSEC] Adverse unknown) Reaction (Intermediate, Verified 10/26/22 (unknown) (no (unknown) (unknown) oxygen #1 ea (units (u nknown) date) 06/17/22 [Rx unknown) Confirmed 10/26/22] (unknown) (no (unknown) (unknown) oxygen (units (unkno wn) date) concentrator #1 ea unknown) 08/18/22 [Rx Confirmed 10/26/22] (unknown) (no (unknown) (unknown) pantoprazole 40 mg (units (unknown) date) tablet,delayed unknown) release 40 mg PO DAILY Hiatal hernia--gerd (unknown) (no (unknown) (unknown) read the note (units ( unknown) date) carefully and unknown) recognize, using context, where these substitutions (unknown) (no (unknown) (unknown) software. Although (units (unknown) date) every effort is unknown) made to edit content, hay stacker errors (unknown) (no (unknown) (unknown) tabs 08/24/22 [Rx (units (unknown) date) Confirmed 10/26/22] unknown) (unknown) (no (unknown) (unknown) the patient states (units (unknown) date) that she is doing unknown) better and does not have any concerns. (unknown) (no (unknown) (unknown) tramadol (units (unkno wn) date) [TRAMADOL] Allergy unknown) (Intermediate, Verified 10/26/22 12:54) Result panel 307 (unknown) (no (unknown) (unknown) (no value) (units (unk nown) date) unknown) (unknown) (no (unknown) (unknown) 09/26/22 [History (units (unknown) date) Confirmed 10/26/22] unknown) (unknown) (no (unknown) (unknown) 10/26/22 (units (unkno wn) date) unknown) (unknown) (no (unknown) (unknown) 10/26/22] (units (unkn own) date) unknown) (unknown) (no (unknown) (unknown) 05/24/17 [History (units (unknown) date) Confirmed 10/26/22] unknown) (unknown) (no (unknown) (unknown) 12:54) (units (unkno wn) date) unknown) (unknown) (no (unknown) (unknown) 12:58 (units (unkno wn) date) unknown) (unknown) (no (unknown) (unknown) 87 year old female (units (unknown) date) presents to clinic unknown) for ER follow up. (unknown) (no (unknown) (unknown) Adverse Reaction (units (unknown) date) (Intermediate, unknown) Verified 10/26/22 12:54) (unknown) (no (unknown) (unknown) Age/Sex: 87 / F (units (unknown) date) Date of Service: unknown) (unknown) (no (unknown) (unknown) Allergies (units (unkn own) date) unknown) (unknown) (no (unknown) (unknown) [place] (units ( unknown) date) [id number] unknown) (unknown) (no (unknown) (unknown) Anesthesia (units (unk nown) date) unknown) (unknown) (no (unknown) (unknown) Attending Dr: Irma (units (unknown) date) Glory D.OPower unknown) (unknown) (no (unknown) (unknown) BP 144/76 H (units (un known) date) unknown) (unknown) (no (unknown) (unknown) Benign essential (units (unknown) date) HTN unknown) (unknown) (no (unknown) (unknown) Blood Pressure (units (unknown) date) Location Lt unknown) brachial (unknown) (no (unknown) (unknown) COUGHING (units (unkno wn) date) unknown) (unknown) (no (unknown) (unknown) Chronic back pain (units (unknown) date) unknown) (unknown) (no (unknown) (unknown) Confirmed (units (unkn own) date) 10/26/22] unknown) (unknown) (no (unknown) (unknown) : 1935 (units (unknown) date) Acct:[id number] unknown) (unknown) (no (unknown) (unknown) Dept at (units (unkno wn) date) . unknown) (unknown) (no (unknown) (unknown) Documented By: (units (unknown) date) Salari, Ali unknown) 10/26/22 1253 (unknown) (no (unknown) (unknown) Draft (units (unkno wn) date) unknown) (unknown) (no (unknown) (unknown) Family Practice (units (unknown) date) Office Visit unknown) (unknown) (no (unknown) (unknown) [facility] (units (unknown) date) [facility] unknown) (unknown) (no (unknown) (unknown) GERD (units (unkno wn) date) (gastroesophageal unknown) reflux disease) (unknown) (no (unknown) (unknown) Gastrointestinal (units (unknown) date) Upset unknown) (unknown) (no (unknown) (unknown) HEART RACING (units (u nknown) date) unknown) (unknown) (no (unknown) (unknown) Health Management (units (unknown) date) reviewed with unknown) patient: Yes (unknown) (no (unknown) (unknown) Health Management (units (unknown) date) unknown) (unknown) (no (unknown) (unknown) Hearing loss (units (u nknown) date) unknown) (unknown) (no (unknown) (unknown) History of total (units (unknown) date) hip replacement unknown) (unknown) (no (unknown) (unknown) History of urinary (units (unknown) date) incontinence unknown) (unknown) (no (unknown) (unknown) Intake Note: (units (u nknown) date) unknown) (unknown) (no (unknown) (unknown) Intake performed (units (unknown) date) by: Dennise Lundy unknown) (unknown) (no (unknown) (unknown) Intake (units (unkno wn) date) unknown) (unknown) (no (unknown) (unknown) Intake- Clincial (units (unknown) date) Staff unknown) (unknown) (no (unknown) (unknown) Loc: [facility] (units (unkno wn) date) unknown) (unknown) (no (unknown) (unknown) [id number] (units (unk nown) date) unknown) (unknown) (no (unknown) (unknown) MUSCLE ACHES AND (units (unknown) date) WEIGHT LOSS unknown) (unknown) (no (unknown) (unknown) Medical History (units (unknown) date) (Updated 09/28/22 @ unknown) 15:50 by Chad Blanco MD) (unknown) (no (unknown) (unknown) Medications (units (un known) date) unknown) (unknown) (no (unknown) (unknown) Osteoarthritis (units (unknown) date) unknown) (unknown) (no (unknown) (unknown) Osteoporosis (units (u nknown) date) unknown) (unknown) (no (unknown) (unknown) Oxygen Delivery (units (unknown) date) Method nasal canula unknown) (unknown) (no (unknown) (unknown) Oxygen Flow Rate 2 (units (unknown) date) unknown) (unknown) (no (unknown) (unknown) PFSH (units (unkno wn) date) unknown) (unknown) (no (unknown) (unknown) Patient: (units (unkno wn) date) Rosita Devi unknown) MR#: (unknown) (no (unknown) (unknown) Position Sitting (units (unknown) date) unknown) (unknown) (no (unknown) (unknown) Prescribed (units (unk nown) date) 10/26/22 [History unknown) Confirmed 10/26/22] (unknown) (no (unknown) (unknown) Pulmonary fibrosis (units (unknown) date) unknown) (unknown) (no (unknown) (unknown) Pulse 79 (units (unkno wn) date) unknown) (unknown) (no (unknown) (unknown) Pulse Oximetry (%) (units (unknown) date) 95 unknown) (unknown) (no (unknown) (unknown) Pulse Source (units (u nknown) date) Monitor unknown) (unknown) (no (unknown) (unknown) Reason For Visit (units (unknown) date) unknown) (unknown) (no (unknown) (unknown) SVT (units (unkno wn) date) (supraventricular unknown) tachycardia) (unknown) (no (unknown) (unknown) Shoulder pain (units ( unknown) date) unknown) (unknown) (no (unknown) (unknown) Signed By: (units (unk nown) date) unknown) (unknown) (no (unknown) (unknown) Sleep apnea (units (un known) date) unknown) (unknown) (no (unknown) (unknown) Smoking Status: (units (unknown) date) Former smoker unknown) (unknown) (no (unknown) (unknown) Social History (units (unknown) date) unknown) (unknown) (no (unknown) (unknown) [id number] (units (unknown) date) Reductase Inhibitor unknown) [[id number] REDUCTASE INHIBITOR] (unknown) (no (unknown) (unknown) Surgical History (units (unknown) date) (Updated 06/14/22 @ unknown) 22:24 by Sherita Carreon) (unknown) (no (unknown) (unknown) Temp 97.1 F L (units ( unknown) date) unknown) (unknown) (no (unknown) (unknown) Temp Source (units (un known) date) Temporal Artery unknown) Scan (unknown) (no (unknown) (unknown) This note may have (units (unknown) date) been all or unknown) partially generated using voice recognition (unknown) (no (unknown) (unknown) Tobacco + (units (unkn own) date) Substance Use unknown) (unknown) (no (unknown) (unknown) Tobacco Status (units (unknown) date) unknown) (unknown) (no (unknown) (unknown) 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, 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 insulin use (unknown) (no (unknown) (unknown) 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 (units ( unknown) date) unknown) (unknown) (no (unknown) (unknown) Visit Reasons: ER (units (unknown) date) f/up chest pain unknown) (unknown) (no (unknown) (unknown) Vitals (units (unkno wn) date) unknown) (unknown) (no (unknown) (unknown) Weight 139 lb (units ( unknown) date) unknown) (unknown) (no (unknown) (unknown) acetaminophen 500 (units (unknown) date) mg tablet (Tylenol unknown) Extra Strength) 500 mg PO Q6HP PRN pain ##0 (unknown) (no (unknown) (unknown) alcohol intake: (units (unknown) date) current unknown) (unknown) (no (unknown) (unknown) alendronate 70 mg (units (unknown) date) tablet (Fosamax) 70 unknown) mg PO QWEEK 09/26/22 [History Confirmed (unknown) (no (unknown) (unknown) alendronate sodium (units (unknown) date) Adverse Reaction unknown) (Intermediate, Verified 10/26/22 12:54) (unknown) (no (unknown) (unknown) ezetimibe [From (units (unknown) date) ZETIA] Adverse unknown) Reaction (Mild, Verified 10/26/22 12:54) (unknown) (no (unknown) (unknown) glimepiride 1 mg (units (unknown) date) tablet (Amaryl) 1 unknown) mg PO DAILY #0 tabs 09/26/22 [History (unknown) (no (unknown) (unknown) have occurred. If (units (unknown) date) there are any unknown) questions, please contact the Medical Records (unknown) (no (unknown) (unknown) household members: (units (unknown) date) spouse unknown) (unknown) (no (unknown) (unknown) hydrocodone 5 (units (u nknown) date) mg-acetaminophen unknown) 325 mg tablet 0.5 - 1 tab PO BEDTIME PRN pain #30 (unknown) (no (unknown) (unknown) losartan 100 mg (units (unknown) date) tablet 100 mg PO unknown) DAILY blood pressure #90 tabs 08/24/22 [Rx (unknown) (no (unknown) (unknown) may occur. (units (unk nown) date) Occasional unknown) wrong-word or 'sound-alike' substitutions may have (unknown) (no (unknown) (unknown) metoprolol (units (unk nown) date) tartrate 100 unknown) mg-hydrochlorothiaz dennis 25 mg tablet 2 tab PO DAILY (unknown) (no (unknown) (unknown) notified provider (units (unknown) date) of high blood unknown) pressure. (unknown) (no (unknown) (unknown) occurred due to (units (unknown) date) the inherent unknown) limitations of voice recognition software. Please (unknown) (no (unknown) (unknown) omeprazole [From (units (unknown) date) PRILOSEC] Adverse unknown) Reaction (Intermediate, Verified 10/26/22 (unknown) (no (unknown) (unknown) oxygen #1 ea (units (u nknown) date) 06/17/22 [Rx unknown) Confirmed 10/26/22] (unknown) (no (unknown) (unknown) oxygen (units (unkno wn) date) concentrator #1 ea unknown) 08/18/22 [Rx Confirmed 10/26/22] (unknown) (no (unknown) (unknown) pantoprazole 40 mg (units (unknown) date) tablet,delayed unknown) release 40 mg PO DAILY Hiatal hernia--gerd (unknown) (no (unknown) (unknown) read the note (units ( unknown) date) carefully and unknown) recognize, using context, where these substitutions (unknown) (no (unknown) (unknown) software. Although (units (unknown) date) every effort is unknown) made to edit content, hay stacker errors (unknown) (no (unknown) (unknown) tabs 08/24/22 [Rx (units (unknown) date) Confirmed 10/26/22] unknown) (unknown) (no (unknown) (unknown) the patient states (units (unknown) date) that she is doing unknown) better. (unknown) (no (unknown) (unknown) tramadol (units (unkno wn) date) [TRAMADOL] Allergy unknown) (Intermediate, Verified 10/26/22 12:54) Result panel 308 (unknown) (no (unknown) (unknown) (no value) (units (unk nown) date) unknown) (unknown) (no (unknown) (unknown) (1) SVT (units (unkno wn) date) (supraventricular unknown) tachycardia): (unknown) (no (unknown) (unknown) (2) Osteoporosis: (units (unknown) date) unknown) (unknown) (no (unknown) (unknown) (3) Pulmonary (units ( unknown) date) fibrosis: unknown) (unknown) (no (unknown) (unknown) (4) Benign (units (unk nown) date) essential HTN: unknown) (unknown) (no (unknown) (unknown) -continue to (units (u nknown) date) monitor blood unknown) pressure. Goal blood pressure less than 130/80 (unknown) (no (unknown) (unknown) -reviewed her (units ( unknown) date) echocardiogram. Her unknown) ejection fraction is normal. Her (unknown) (no (unknown) (unknown) 09/26/22 [History (units (unknown) date) Confirmed 10/26/22] unknown) (unknown) (no (unknown) (unknown) 10/26/22 1321 (units ( unknown) date) unknown) (unknown) (no (unknown) (unknown) 10/26/22 (units (unkno wn) date) unknown) (unknown) (no (unknown) (unknown) 08/17. Blood (units (unk nown) date) pressure is unknown) well-controlled at home. She did not tolerate the 25 mg (unknown) (no (unknown) (unknown) 05/24/17 [History (units (unknown) date) Confirmed 10/26/22] unknown) (unknown) (no (unknown) (unknown) 12:54) (units (unkno wn) date) unknown) (unknown) (no (unknown) (unknown) 12:58 (units (unkno wn) date) unknown) (unknown) (no (unknown) (unknown) 2. She will (units (un known) date) restart her unknown) Fosamax. (unknown) (no (unknown) (unknown) 3, continue (units (un known) date) oxygen. She uses 2 unknown) L at night and portably. (unknown) (no (unknown) (unknown) 87 year old female (units (unknown) date) presents to clinic unknown) for ER follow up. (unknown) (no (unknown) (unknown) Adverse Reaction (units (unknown) date) (Intermediate, unknown) Verified 10/26/22 12:54) (unknown) (no (unknown) (unknown) Age/Sex: 87 / F (units (unknown) date) Date of Service: unknown) (unknown) (no (unknown) (unknown) Allergies (units (unkn own) date) unknown) (unknown) (no (unknown) (unknown) Allergies: (units (unk nown) date) Reviewed unknown) (unknown) (no (unknown) (unknown) [place] (units ( unknown) date) [id number] unknown) (unknown) (no (unknown) (unknown) Anesthesia (units (unk nown) date) unknown) (unknown) (no (unknown) (unknown) Assessment + Plan (units (unknown) date) unknown) (unknown) (no (unknown) (unknown) Attending Dr: Irma (units (unknown) date) Glory GarciaOPower unknown) (unknown) (no (unknown) (unknown) BP 144/76 H (units (un known) date) unknown) (unknown) (no (unknown) (unknown) Benign essential (units (unknown) date) HTN unknown) (unknown) (no (unknown) (unknown) Blood Pressure (units (unknown) date) Location Lt unknown) brachial (unknown) (no (unknown) (unknown) CHEST: Normal (units ( unknown) date) respiratory effort unknown) (unknown) (no (unknown) (unknown) COUGHING (units (unkno wn) date) unknown) (unknown) (no (unknown) (unknown) Chief Complaint: (units (unknown) date) ER f/u unknown) (unknown) (no (unknown) (unknown) Chronic back pain (units (unknown) date) unknown) (unknown) (no (unknown) (unknown) Confirmed (units (unkn own) date) 10/26/22] unknown) (unknown) (no (unknown) (unknown) : 1935 (units (unknown) date) Acct:[id number] unknown) (unknown) (no (unknown) (unknown) Dept at (units (unkno wn) date) . unknown) (unknown) (no (unknown) (unknown) Discontinued (units (u nknown) date) Reason: None 2 tabs unknown) PO DAILY DrPower Prescribed (unknown) (no (unknown) (unknown) Discontinued (units (u nknown) date) unknown) (unknown) (no (unknown) (unknown) Documented By: (units (unknown) date) Irma Holder unknown) 10/26/22 1253 (unknown) (no (unknown) (unknown) EYES: PERRL, EOMI (units (unknown) date) and nonicteric unknown) (unknown) (no (unknown) (unknown) Family Practice (units (unknown) date) Office Visit unknown) (unknown) (no (unknown) (unknown) [facility]) (unknown) (no (unknown) (unknown) GENERAL: Well (units ( unknown) date) developed, well unknown) nourished.? Cooperative with exam.? Patient is in (unknown) (no (unknown) (unknown) GERD (units (unkno wn) date) (gastroesophageal unknown) reflux disease) (unknown) (no (unknown) (unknown) Gastrointestinal (units (unknown) date) Upset unknown) (unknown) (no (unknown) (unknown) HEAD: Atraumatic, (units (unknown) date) Normocephalic unknown) (unknown) (no (unknown) (unknown) HEART RACING (units (u nknown) date) unknown) (unknown) (no (unknown) (unknown) Health Management (units (unknown) date) reviewed with unknown) patient: Yes (unknown) (no (unknown) (unknown) Health Management (units (unknown) date) unknown) (unknown) (no (unknown) (unknown) Hearing loss (units (u nknown) date) unknown) (unknown) (no (unknown) (unknown) History of total (units (unknown) date) hip replacement unknown) (unknown) (no (unknown) (unknown) History of urinary (units (unknown) date) incontinence unknown) (unknown) (no (unknown) (unknown) I reviewed the (units (unknown) date) patient's Past unknown) Medical History, Problem List, Medications and (unknown) (no (unknown) (unknown) Intake Note: (units (u nknown) date) unknown) (unknown) (no (unknown) (unknown) Intake performed (units (unknown) date) by: Dennise Lundy unknown) (unknown) (no (unknown) (unknown) Intake (units (unkno wn) date) unknown) (unknown) (no (unknown) (unknown) Intake- Clincial (units (unknown) date) Staff unknown) (unknown) (no (unknown) (unknown) Loc: [facility] (units (unkno wn) date) unknown) (unknown) (no (unknown) (unknown) [id number] (units (unk nown) date) unknown) (unknown) (no (unknown) (unknown) MUSCLE ACHES AND (units (unknown) date) WEIGHT LOSS unknown) (unknown) (no (unknown) (unknown) MUSKULOSKELETAL: (units (unknown) date) Slow gait with unknown) walker (unknown) (no (unknown) (unknown) Medical History (units (unknown) date) (Updated 10/26/22 @ unknown) 13:20 by Irma Holder DO) (unknown) (no (unknown) (unknown) Medications (units (un known) date) unknown) (unknown) (no (unknown) (unknown) Medications: (units (u nknown) date) Reconciled unknown) (unknown) (no (unknown) (unknown) Medications: (units (u nknown) date) unknown) (unknown) (no (unknown) (unknown) NECK: Full range (units (unknown) date) of motion, unknown) lymphadenopathy absent, supple (unknown) (no (unknown) (unknown) NEURO EXAM: Alert (units (unknown) date) and oriented x 3.? unknown) (unknown) (no (unknown) (unknown) New (units (unkno wn) date) unknown) (unknown) (no (unknown) (unknown) Note (units (unkno wn) date) unknown) (unknown) (no (unknown) (unknown) Note: (units (unkno wn) date) unknown) (unknown) (no (unknown) (unknown) Notes (units (unkno wn) date) unknown) (unknown) (no (unknown) (unknown) Objective: (units (unk nown) date) unknown) (unknown) (no (unknown) (unknown) Osteoarthritis (units (unknown) date) unknown) (unknown) (no (unknown) (unknown) Osteoporosis type: (units (unknown) date) age-related unknown) Presence of current pathological (unknown) (no (unknown) (unknown) Osteoporosis (units (u nknown) date) unknown) (unknown) (no (unknown) (unknown) Oxygen 2L by nasal (units (unknown) date) canula #1 ea unknown) 10/26/22 [Rx Confirmed 10/26/22] (unknown) (no (unknown) (unknown) Oxygen Delivery (units (unknown) date) Method nasal canula unknown) (unknown) (no (unknown) (unknown) Oxygen Flow Rate 2 (units (unknown) date) unknown) (unknown) (no (unknown) (unknown) PFSH (units (unkno wn) date) unknown) (unknown) (no (unknown) (unknown) PSYCH: judgement (units (unknown) date) normal, orientation unknown) normal, affect/mood normal and memory (unknown) (no (unknown) (unknown) Patient is here to (units (unknown) date) follow up on her unknown) recent ER visit. She states that she has (unknown) (no (unknown) (unknown) Patient: (units (unkno wn) date) Rosita Devi L unknown) MR#: (unknown) (no (unknown) (unknown) Plan (units (unkno wn) date) unknown) (unknown) (no (unknown) (unknown) Position Sitting (units (unknown) date) unknown) (unknown) (no (unknown) (unknown) Pulmonary fibrosis (units (unknown) date) unknown) (unknown) (no (unknown) (unknown) Pulse 79 (units (unkno wn) date) unknown) (unknown) (no (unknown) (unknown) Pulse Oximetry (%) (units (unknown) date) 95 unknown) (unknown) (no (unknown) (unknown) Pulse Source (units (u nknown) date) Monitor unknown) (unknown) (no (unknown) (unknown) Qualifiers: (units (un known) date) unknown) (unknown) (no (unknown) (unknown) Reason For Visit (units (unknown) date) unknown) (unknown) (no (unknown) (unknown) SKIN:? No rashes (units (unknown) date) on face or arms. unknown) (unknown) (no (unknown) (unknown) SVT (units (unkno wn) date) (supraventricular unknown) tachycardia) (unknown) (no (unknown) (unknown) She continues to (units (unknown) date) use oxygen at all unknown) times for her pulmonary fibrosis. She feels (unknown) (no (unknown) (unknown) She would like to (units (unknown) date) restart her unknown) Fosamax. She thought it was initially upsetting (unknown) (no (unknown) (unknown) Shoulder pain (units ( unknown) date) unknown) (unknown) (no (unknown) (unknown) Signed By: (units (unk nown) date) <Electronically unknown) signed by Irma Holder> (unknown) (no (unknown) (unknown) Signed (units (unkno wn) date) unknown) (unknown) (no (unknown) (unknown) Sleep apnea (units (un known) date) unknown) (unknown) (no (unknown) (unknown) Smoking Status: (units (unknown) date) Former smoker unknown) (unknown) (no (unknown) (unknown) Social History (units (unknown) date) (including tobacco unknown) use status). (unknown) (no (unknown) (unknown) Social History (units (unknown) date) unknown) (unknown) (no (unknown) (unknown) [id number]-[id number] (units (unknown) date) Reductase Inhibitor unknown) [[id number] REDUCTASE INHIBITOR] (unknown) (no (unknown) (unknown) Status: Acute (units ( unknown) date) unknown) (unknown) (no (unknown) (unknown) Subjective: (units (un known) date) unknown) (unknown) (no (unknown) (unknown) Surgical History (units (unknown) date) (Updated 06/14/22 @ unknown) 22:24 by Sherita Carreon) (unknown) (no (unknown) (unknown) Temp 97.1 F L (units ( unknown) date) unknown) (unknown) (no (unknown) (unknown) Temp Source (units (un known) date) Temporal Artery unknown) Scan (unknown) (no (unknown) (unknown) This note may have (units (unknown) date) been all or unknown) partially generated using voice recognition (unknown) (no (unknown) (unknown) Tobacco + (units (unkn own) date) Substance Use unknown) (unknown) (no (unknown) (unknown) Tobacco Status (units (unknown) date) unknown) (unknown) (no (unknown) (unknown) 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, 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 insulin use (unknown) (no (unknown) (unknown) 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 (units ( unknown) date) unknown) (unknown) (no (unknown) (unknown) Visit Reasons: ER (units (unknown) date) f/up chest pain unknown) (unknown) (no (unknown) (unknown) Vital Signs: (units (u nknown) date) Reviewed unknown) (unknown) (no (unknown) (unknown) Vitals (units (unkno wn) date) unknown) (unknown) (no (unknown) (unknown) Voice recognition (units (unknown) date) software was used unknown) in the creation of this note. There may be (unknown) (no (unknown) (unknown) Weight 139 lb (units ( unknown) date) unknown) (unknown) (no (unknown) (unknown) [Oxygen 2L by (units ( unknown) date) nasal canula] unknown) concentrator and portable tanks. use as directed 1 (unknown) (no (unknown) (unknown) acetaminophen 500 (units (unknown) date) mg tablet (Tylenol unknown) Extra Strength) 500 mg PO Q6HP PRN pain ##0 (unknown) (no (unknown) (unknown) alcohol intake: (units (unknown) date) current unknown) (unknown) (no (unknown) (unknown) alendronate (units (un known) date) (Fosamax) 70 mg PO unknown) QWEEK 12 tabs 3RF M81.0 - Age-related (unknown) (no (unknown) (unknown) alendronate 70 mg (units (unknown) date) tablet (Fosamax) 70 unknown) mg PO QWEEK #12 tabs 10/26/22 [Rx (unknown) (no (unknown) (unknown) alendronate sodium (units (unknown) date) Adverse Reaction unknown) (Intermediate, Verified 10/26/22 12:54) (unknown) (no (unknown) (unknown) at all times. She (units (unknown) date) uses concentrator unknown) at night and then portable tanks as needed. (unknown) (no (unknown) (unknown) b.i.d. but thought (units (unknown) date) it was making her unknown) too dizzy so she is only been taking it (unknown) (no (unknown) (unknown) been doing well (units (unknown) date) since her unknown) discharge. She is not had any episodes of chest pains (unknown) (no (unknown) (unknown) ea 0RF Pulmonary (units (unknown) date) Fibrosis J84.10 - unknown) Pulmonary fibrosis, unspecified (unknown) (no (unknown) (unknown) echocardiogram was (units (unknown) date) overall normal. unknown) (unknown) (no (unknown) (unknown) ezetimibe [From (units (unknown) date) ZETIA] Adverse unknown) Reaction (Mild, Verified 10/26/22 12:54) (unknown) (no (unknown) (unknown) fracture: (units (unkn own) date) unspecified unknown) Qualified Code(s): M81.0 - Age-related osteoporosis (unknown) (no (unknown) (unknown) glimepiride 1 mg (units (unknown) date) tablet (Amaryl) 1 unknown) mg PO DAILY #0 tabs 09/26/22 [History (unknown) (no (unknown) (unknown) have occurred. If (units (unknown) date) there are any unknown) questions, please contact the Medical Records (unknown) (no (unknown) (unknown) her over to the (units (unknown) date) metoprolol unknown) succinate to accommodate her once a day dosing. (unknown) (no (unknown) (unknown) her stomach but (units (unknown) date) realize it is not. unknown) (unknown) (no (unknown) (unknown) household members: (units (unknown) date) spouse unknown) (unknown) (no (unknown) (unknown) hydrocodone 5 (units (u nknown) date) mg-acetaminophen unknown) 325 mg tablet 0.5 - 1 tab PO BEDTIME PRN pain #30 (unknown) (no (unknown) (unknown) ideally. We will (units (unknown) date) have to manage unknown) medication doses versus side effects. (unknown) (no (unknown) (unknown) losartan 100 mg (units (unknown) date) tablet 100 mg PO unknown) DAILY blood pressure #90 tabs 08/24/22 [Rx (unknown) (no (unknown) (unknown) may occur. (units (unk nown) date) Occasional unknown) wrong-word or 'sound-alike' substitutions may have (unknown) (no (unknown) (unknown) metoprolol (units (unk nown) date) succinate 25 mg unknown) tablet,extended release 24 hr 25 mg PO DAILY blood (unknown) (no (unknown) (unknown) metoprolol (units (unk nown) date) succinate ER 25 mg unknown) PO DAILY 90 tabs 3RF blood pressure (unknown) (no (unknown) (unknown) metoprolol (units (unk nown) date) ta-hydrochlorothiaz unknown) 100-25 mg (unknown) (no (unknown) (unknown) no apparent (units (un known) date) distress. unknown) (unknown) (no (unknown) (unknown) normal (units (unkno wn) date) unknown) (unknown) (no (unknown) (unknown) notified provider (units (unknown) date) of high blood unknown) pressure. (unknown) (no (unknown) (unknown) occurred due to (units (unknown) date) the inherent unknown) limitations of voice recognition software. Please (unknown) (no (unknown) (unknown) of metoprolol (units ( unknown) date) b.i.d.. She has unknown) only been taking it once a day. We will switch (unknown) (no (unknown) (unknown) omeprazole [From (units (unknown) date) PRILOSEC] Adverse unknown) Reaction (Intermediate, Verified 10/26/22 (unknown) (no (unknown) (unknown) once a day. She (units (unknown) date) has a copy of her unknown) echocardiogram through Cardiology. (unknown) (no (unknown) (unknown) or palpitations. (units (unknown) date) She was started on unknown) 25 mg of metoprolol. She was taking it (unknown) (no (unknown) (unknown) osteoporosis (units (u nknown) date) without current unknown) pathological fracture (unknown) (no (unknown) (unknown) oxygen #1 ea (units (u nknown) date) 06/17/22 [Rx unknown) Confirmed 10/26/22] (unknown) (no (unknown) (unknown) oxygen (units (unkno wn) date) concentrator #1 ea unknown) 08/18/22 [Rx Confirmed 10/26/22] (unknown) (no (unknown) (unknown) pantoprazole 40 mg (units (unknown) date) tablet,delayed unknown) release 40 mg PO DAILY Hiatal hernia--gerd (unknown) (no (unknown) (unknown) pressure #90 tabs (units (unknown) date) 10/26/22 [Rx unknown) Confirmed 10/26/22] (unknown) (no (unknown) (unknown) read the note (units ( unknown) date) carefully and unknown) recognize, using context, where these substitutions (unknown) (no (unknown) (unknown) software. Although (units (unknown) date) every effort is unknown) made to edit content, hay stacker errors (unknown) (no (unknown) (unknown) tabs 08/24/22 [Rx (units (unknown) date) Confirmed 10/26/22] unknown) (unknown) (no (unknown) (unknown) that the oxygen (units (unknown) date) does help with her unknown) respiratory issues and fatigue. She uses 2 L (unknown) (no (unknown) (unknown) the patient states (units (unknown) date) that she is doing unknown) better. (unknown) (no (unknown) (unknown) tramadol (units (unkno wn) date) [TRAMADOL] Allergy unknown) (Intermediate, Verified 10/26/22 12:54) (unknown) (no (unknown) (unknown) typographical (units ( unknown) date) errors as a result. unknown) (unknown) (no (unknown) (unknown) without current (units (unknown) date) pathological unknown) fracture Social History date description facility 2022-08-24 00:00 Ex-smoker (finding) [facility] 2022-09-26 00:00 Ex-smoker (finding) [facility] 2022-09-28 00:00 Ex-smoker (finding) [facility] 2022-10-26 00:00 Ex-smoker (finding) [facility] Vital Signs date measurement value units 2022-08-24 00:00 BMI 21.9 kg/m2 2022-08-24 00:00 BP_diastolic 83 mmHg 2022-08-24 00:00 BP_systolic 172 mmHg 2022-08-24 00:00 heart_rate 72 /min 2022-08-24 00:00 height_metric 170.18 cm 2022-08-24 00:00 height_standard 67 in 2022-08-24 00:00 o2_saturation 100 % 2022-08-24 00:00 temperature_metric 36.28 C 2022-08-24 00:00 temperature_standard 97.3 F 2022-08-24 00:00 weight_metric 63.5 kg 2022-08-24 00:00 weight_standard 139.99 lb 2022-09-26 00:00 BMI 22.1 kg/m2 2022-09-26 00:00 BP_diastolic 80 mmHg 2022-09-26 00:00 BP_systolic 132 mmHg 2022-09-26 00:00 heart_rate 94 /min 2022-09-26 00:00 height_metric 170.18 cm 2022-09-26 00:00 height_standard 67 in 2022-09-26 00:00 o2_saturation 98 % 2022-09-26 00:00 temperature_metric 35.89 C 2022-09-26 00:00 temperature_standard 96.6 F 2022-09-26 00:00 weight_metric 64.06 kg 2022-09-26 00:00 weight_standard 141.23 lb 2022-09-28 00:00 BMI 21.9 kg/m2 2022-09-28 00:00 BP_diastolic 80 mmHg 2022-09-28 00:00 BP_systolic 145 mmHg 2022-09-28 00:00 heart_rate 84 /min 2022-09-28 00:00 height_metric 170.18 cm 2022-09-28 00:00 height_standard 67 in 2022-09-28 00:00 o2_saturation 100 % 2022-09-28 00:00 respiration_rate 24 /min 2022-09-28 00:00 temperature_metric 35.94 C 2022-09-28 00:00 temperature_standard 96.7 F 2022-09-28 00:00 weight_metric 63.5 kg 2022-09-28 00:00 weight_metric 64.5 kg 2022-09-28 00:00 weight_standard 139.99 lb 2022-09-28 00:00 weight_standard 142.2 lb 2022-09-29 00:00 BP_diastolic 60 mmHg 2022-09-29 00:00 BP_systolic 135 mmHg 2022-09-29 00:00 heart_rate 78 /min 2022-09-29 00:00 o2_saturation 95 % 2022-09-29 00:00 o2_saturation 98 % 2022-09-29 00:00 respiration_rate 16 /min 2022-09-29 00:00 respiration_rate 20 /min 2022-09-29 00:00 temperature_metric 35.94 C 2022-09-29 00:00 temperature_metric 36.28 C 2022-09-29 00:00 temperature_standard 96.7 F 2022-09-29 00:00 temperature_standard 97.3 F 2022-10-26 00:00 BP_diastolic 76 mmHg 2022-10-26 00:00 BP_systolic 144 mmHg 2022-10-26 00:00 heart_rate 79 /min 2022-10-26 00:00 o2_saturation 95 % 2022-10-26 00:00 temperature_metric 36.17 C 2022-10-26 00:00 temperature_standard 97.1 F 2022-10-26 00:00 weight_metric 63.04 kg 2022-10-26 00:00 weight_standard 138.98 lb
[2022-10-30] MEDS ORDERED: SODIUM CHLORIDE 0.9% 1,000 ML IV STA (13:51)
--- NOTE | 2022-10-30 14:00 | ED Physician Documentation ---
History of Present Illness - Stated complaint Stated Complaint: DIARRHEA/VOMIT/WEAK - Chief complaint Chief Complaint: Abd Pain - Additonal information Additional information: 87-year-old female presents emergency department for evaluation of several days diarrhea and vomiting. Reports 3 days ago she had 2 episodes of vomiting on Monday none since. However since then she has been having 10-15 dark brown watery stools a day. No fevers. She does endorse some abdominal cramping. She does report having C. difficile infection in December of 2021. States her granddaughter at home has had diarrhea recently. Patient states at home she took a lot of Imodium and Pepto-Bismol which she thought was not helping but she has not had any diarrhea since this AM. Patient does have a history of pulmonary fibrosis for which she is on baseline 2 to 3 L nasal cannula. Denies chest pain or shortness of air. Review of Systems Constitutional: denies: Fever Cardiac: reports: Reviewed and negative Respiratory: reports: Reviewed and negative GI: reports: Nausea, Vomiting, Diarrhea. denies: Abdominal Pain, Hematemesis, Bloody / black stool : reports: Reviewed and negative Musculoskeletal: reports: Reviewed and negative PD PAST MEDICAL HISTORY - Past Medical History Cardiovascular: Hypertension, High cholesterol Respiratory: Sleep apnea, CPAP use Endocrine/Autoimmune: Type 2 diabetes Psych: None Musculoskeletal: Osteoarthritis, Osteoporosis, Chronic back pain - Past Surgical History Ortho: Spine surgery - Allergies Allergies/Adverse Reactions: Allergies Allergy/AdvReac Type Severity Reaction Status Date / Time No Known Drug Allergies Allergy Verified 10/30/22 13:18 PD ED PE NORMAL - General General: Alert and oriented X 3, No acute distress, Well developed/nourished (Geriatric appearance but otherwise well-appearing) - HEENT HEENT: Atraumatic, Moist mucous membranes - Neck Neck: Supple, no meningeal sign - Cardiac Cardiac: RRR, No murmur - Respiratory Respiratory: No respiratory distress, Clear bilaterally - Abdomen Abdomen: Soft, Non distended. No: Normal bowel sounds, Non tender (Generally benign abdominal exam with no focal tenderness elicited. Mildly hyperactive bowel sounds) - Back Back: No CVA TTP, No spinal TTP - Derm Derm: Normal color, Warm and dry - Extremities Extremities: No deformity, No tenderness to palpate, Normal ROM s pain - Neuro Neuro: Alert and oriented X 3, therapeutic radiologist 2-12 intact Eye Opening: Spontaneous Motor: Obeys Commands Verbal: Oriented GCS Score: 15 Results - Vitals Vitals: Vital Signs - 24 hr 10/30/22 10/30/22 12:47 15:31 Temperature 36.8 C Heart Rate 80 70 Respiratory 18 14 Rate Blood Pressure 107/69 124/62 O2 Saturation 98 100 If not protocol 2 : Oxygen Flow, liters/minute Oxygen O2 Source Nasal cannula - Labs Labs: Laboratory Tests 10/30/22 10/30/22 14:07 14:07 WBC 11.4 H RBC 3.88 L Hgb 12.0 Hct 37.8 MCV 97.4 MCH 30.9 MCHC 31.7 L RDW 14.4 Plt Count 244 MPV 9.4 Neut # (Auto) 9.0 H Lymph # (Auto) 1.3 L [place] # (Auto) 1.1 H Eos # (Auto) 0.0 Baso # (Auto) 0.0 Absolute Nucleated RBC 0.00 Nucleated RBC % 0.0 Sodium 129 L Potassium 3.6 Chloride 98 L Carbon Dioxide 23 Anion Gap 8.0 BUN 29 H Creatinine 0.7 Estimated GFR (MDRD) 79 L Glucose 214 H Calcium 8.0 L Total Bilirubin 0.4 AST 38 ALT 23 Alkaline Phosphatase 33 L Total Protein 8.7 H Albumin 3.8 Globulin 4.9 H Albumin/Globulin Ratio 0.8 L Lipase 36 - Rads (name of study) CT abd w Relevant Findings:: Final report received (Numerous dilated loops of small bowel with gradual transition to normal caliber in the terminal ileum is suggestive of ileus versus partial obstruction. Cholelithiasis and cholecystitis. Interstitial lung disease. Large hiatal hernia. Chronic degenerative changes throughout the lumbar spine) PD Medical Decision Making - ED course Complexity details: reviewed results, re-evaluated patient, considered differential, d/w patient, d/w internet sales consultant (Darryn) ED course: 87-year-old female presents to the emergency department for evaluation of 2-3 episodes of vomiting on Monday and at least 10-15 brown foul-smelling watery stools yesterday. Patient took a number of doses of Imodium as well as Pepto- Bismol and since then has had no further vomiting. She does have a history of C. difficile colitis in December 2021 which had fully resolved. Here in the emergency department she is alert and well-appearing. She is afebrile. No abdominal tenderness was elicited on repeat examination. We did obtain a CBC and electrolytes. Per my interpretation mild leukocytosis. She does have a mild hyponatremia which is not markedly different from baseline. Today it is 129. She may be mildly dehydrated with a BUN of 27. Other electrolytes without worrisome findings. Patient was given a liter of IV fluids here in the emergency department but given the history of C. difficile colitis a CT scan was completed. He does show possible small bowel ileus versus early obstruction. However given the benign abdominal exam and the patient's ability to keep oral liquids down I discussed this case with on-call surgeon Dr. Long. He feels that clinically the patient is likely stable for discharge home with clear liquids for the next 24 hours. If at any point her symptoms worsen, she develops fevers higher than 101, has abdominal pain or uncontrolled vomiting she will return to the ER. The patient was unable to give me a stool sample here in the ER but was advised that she has a watery bowel movement at home to return to the ER and it can be tested for C. difficile. I discussed the plan with the patient and she is in agreement. Thus she is discharged home in stable condition with emergent return precautions discussed. Departure - Departure Disposition: 01 Home, Self Care Clinical Impression: Paralytic ileus of small intestine Diarrhea Qualifiers: Diarrhea type: unspecified type Qualified Code(s): R19.7 - Diarrhea, unspecified Condition: Stable Record reviewed to determine appropriate education?: Yes Follow-Up: MONIQUE GAXIOLA DO [Primary Care Provider] - Comments: Rosita you came to the emergency department today because on Monday you had a few episodes of vomiting but all day yesterday you had watery stools. You took a lot of Imodium and Pepto-Bismol and have not had any watery stools today. The watery stools are worrisome because you do have a history of C. difficile. You are unable to produce a Stool sample for us in the ER. At home if you have a watery bowel movement please return to the ER and we can place an order for it to be tested. Your labs today showed a mild decrease in your sodium of 129. This is likely because you have not had anything to eat or drink. I do encourage you to drink broth at home. The CT scan today shows the possibility of an ileus which means that the intestines are not moving normally or even an early small bowel obstruction. However because you do not have any abdominal pain and you are able to eat and drink after discussion with our on-call surgeon we felt it was safe to discharge you home. I would like you to drink clear liquids such as Pedialyte, half-strength Gatorade, juice or broth for the next 24 hours. If at any point you find that your symptoms are worsening, you develop any abdominal pain, have fevers higher than 101 or begin to vomit again then please return immediately to the ER for reevaluation.
[2022-10-30 14:14] LABS: BASOPHILS % (AUTO) 0.3 %; EOSINOPHILS % (AUTO) 0.2 %; HCT - HEMATOCRIT 37.8 % (37.0-47.0); LYMPHOCYTES # (AUTO) 1.3 10^3/uL (1.5-3.5); LYMPHOCYTES % (AUTO) 11.1 %; MEAN CORPUSCULAR HEMOGLOBIN 30.9 pg (27.0-31.0); MEAN CORPUSCULAR HGB CONC 31.7 g/dL (32.0-36.0); MEAN CORPUSCULAR VOLUME 97.4 fL (81.0-99.0); MEAN PLATELET VOLUME 9.4 fL (7.9-10.8); MONOCYTES # (AUTO) 1.1 10^3/uL (0.0-1.0); MONOCYTES % (AUTO) 9.7 %; NEUTROPHILS % (AUTO) 78.3 %; PLT - PLATELET COUNT 244 10^3/uL (130-450); RED BLOOD COUNT 3.88 10^6/uL (4.20-5.40); RED CELL DISTRIBUTION WIDTH 14.4 % (12.0-15.0); WHITE BLOOD COUNT 11.4 x10^3/uL (4.8-10.8)
[2022-10-30] MEDS ORDERED: iohexoL-300 100 ML VIAL ONE (14:25)
[2022-10-30 14:39] LABS: ALBUMIN 3.8 g/dL (3.2-5.5); ALBUMIN/GLOBULIN RATIO 0.8 (1.0-2.2); BILIRUBIN,TOTAL 0.4 mg/dL (0.2-1.0); CREATININE 0.7 mg/dL (0.4-1.0); POTASSIUM 3.6 mmol/L (3.5-5.0); TOTAL PROTEIN 8.7 g/dL (6.7-8.2)
[2022-10-30] MEDS ORDERED: iohexoL-300 100 ML VIAL IVP ONE (15:18)
--- NOTE | 2022-10-30 15:42 | CT Report ---
PROCEDURE: ABDOMEN/PELVIS W INDICATIONS: n/v/abd pain CONTRAST: 100ml omni 300 TECHNIQUE: After the administration of IV contrast, 5 mm thick sections acquired from the diaphragms to the symp hysis. 5 mm thick coronal and sagittal reformats were acquired. For radiation dose reduction, the f ollowing was used: automated exposure control, adjustment of mA and/or kV according to patient size. COMPARISON: None. FINDINGS: Image quality: Excellent. ABDOMEN: Lung bases: Prominent interstitial thickening and reticular scarring with mild honeycombing. Bronchie ctasis. Heart size is normal. Solid organs: Liver and spleen are normal in size and enhancement. Gallbladder contains multiple ca lcified gallstones. Biliary system is non dilated. Pancreas enhances normally. No adrenal nodules. Kidneys demonstrate normal size and enhancement, without hydronephrosis. Peritoneum and bowel: Large hiatal hernia containing large portion of the stomach within the thorax. Multiple loops of distal small bowel are moderately dilated with air-fluid levels with gradual trans ition in the distal terminal ileum. Numerous colonic diverticula. Normal appendix. No free fluid or a ir. Nodes and vessels: No retroperitoneal or mesenteric adenopathy by size criteria. Aorta and inferior vena cava are normal in size. Miscellaneous: No ventral hernias. PELVIS: Genitourinary: Bladder wall thickness is normal. Miscellaneous: No inguinal hernias or adenopathy. Bones: No suspicious bony lesions. T10 and T12 vertebral body compression fractures. Vacuum disc phe nomenon along T10 and T12 suggesting chronic etiology. Multilevel disc height loss and spondylitic ch anges most prominent at L3-L4. IMPRESSION: 1.Numerous dilated loops of small bowel with gradual transition to normal caliber of the terminal ile um is suggestive of ileus versus partial obstruction 2.Cholelithiasis and cholecystitis. 3.Interstitial lung disease. 4.Large hiatal hernia. 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 Reviewed by: Chad Berry MD on 10/30/2022 2:41 PM AKDT Approved by: Chad Berry MD on 10/30/2022 2:41 PM AKDT Station ID: [id number]
[2022-10-30 16:33] LABS: BILIRUBIN,URINE NEGATIVE (NEGATIVE); GLUCOSE, URINE (UA) NEGATIVE (NEGATIVE); KETONES,URINE (UA) NEGATIVE (NEGATIVE); LEUKOCYTE ESTERASE, URINE NEGATIVE (NEGATIVE); NITRITE,URINE NEGATIVE (NEGATIVE); OCCULT BLOOD,URINE NEGATIVE (NEGATIVE); PROTEIN,URINE NEGATIVE (NEGATIVE); UROBILINOGEN,URINE 0.2 (NORMAL) E.U./dL (NORMAL)
[2022-10-30 16:41] LABS: CLARITY,URINE CLEAR (CLEAR)
[2022-10-30 17:06] VITALS: BP 120/66
--- NOTE | 2022-10-31 14:31 | ED Physician Documentation ---
ED Addendum - Addendum Addendum: 10/31/22 14:30 I have been notified that the patient's was able to drop off a liquid stool sample after being seen in the emergency department yesterday for diarrhea. She does have a history of C. difficile. Due to communication error as the lab had declined to run the sample. However I was able to contact the lab and they agreed to run the stool sample to monitor for C. difficile. I have spoken with the now twice on the phone and he is quite angry and upset. He does not understand why the lab would not initially run the stool sample. He states his is quite sick. Then he hung up on me. Pending the C. difficile result I will plan to contact the patient and her later today discuss any treatment or reevaluation that may be necessary
--- NOTE | 2022-10-31 16:36 | ED Physician Documentation ---
ED Addendum - Addendum Addendum: Patient C. difficile has resulted positive. Her last recurrence was in December 2021. I discussed this finding with patient's on the phone. He reports she continues to have diarrhea. I have sent a prescription for vancomycin 125 mg 4 times daily for the next 10 days to [facility] in [place]. I have also prescribed some more Zofran to help with nausea per the 's request. I reiterated that if he felt her diarrhea was worsening despite the new antibiotic or she was getting excessively dehydrated to return immediately to the ER for second evaluation 10/31/22 16:35
--- NOTE | 2022-10-31 18:15 | ED Physician Documentation ---
ED Addendum - Addendum Addendum: 10/31/22 18:13 Patient's has called me back stating that [employer] will not authorize the vancomycin. He is requesting an alternative medication. I discussed with him that the other medication for use of C. difficile is exorbitantly expensive. 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 As [facility] did not have the vancomycin at his request I then resent it to [facility]. The patient states that he will try and call his primary doctor tomorrow to see if they can come up with another medicine besides the vancomycin that I have suggested for treatment of C. difficile.
--- NOTE | 2022-10-31 19:21 | ED Physician Documentation ---
ED Addendum - Addendum Addendum: 10/31/22 19:19 I was notified by the [facility] pharmacy that they could not dispense vancomycin without prior authorization from [facility]. I then called the [employer] line [phone]. I did spend some time on the phone with the rep and I asked for an urgent authorization for vancomycin in the treatment of C. difficile. I was informed that it would take 24 hours for an urgent referral to be authorized. The reference number for this is [id number] I have called the patient's [facility] and communicated the urgent authorization. I reiterated that should his have worsening diarrhea before receiving the vancomycin, develop fevers, stop making urine or he feels that she is clinically deteriorating in any way he is to return her immediately to the emergency department.
== END 2022-10-30 17:19 | disposition home or self-care (01) ==
LOC: ED 12:26
DX: K56.0 Paralytic ileus (principal); A04.72 Enterocolitis due to Clostridium difficile, not specified as recurrent; R19.7 Diarrhea, unspecified; E87.1 Hypo-osmolality and hyponatremia
CPT/HCPCS: 36415; 74177; 80053; 81003; 83690; 85025; 99284; Q9967; 81001; 87086; 87493

== ENCOUNTER 2023-03-17 14:30 | Outpatient (CLI) | payer MEDICARE, OTHER ==
[2023-03-17 18:19] LABS: BASOPHILS # (AUTO) 0.1 10^3/uL (0.0-0.1); BASOPHILS % (AUTO) 0.8 %; EOSINOPHILS # (AUTO) 0.6 10^3/uL (0.0-0.7); EOSINOPHILS % (AUTO) 4.2 %; HCT - HEMATOCRIT 31.5 % (37.0-47.0); HGB - HEMOGLOBIN 10.2 g/dL (12.0-16.0); LYMPHOCYTES # (AUTO) 2.3 10^3/uL (1.5-3.5); LYMPHOCYTES % (AUTO) 16.6 %; MEAN CORPUSCULAR HEMOGLOBIN 31.7 pg (27.0-31.0); MEAN CORPUSCULAR HGB CONC 32.4 g/dL (32.0-36.0); MEAN CORPUSCULAR VOLUME 97.8 fL (81.0-99.0); MEAN PLATELET VOLUME 9.5 fL (7.9-10.8); MONOCYTES # (AUTO) 0.9 10^3/uL (0.0-1.0); MONOCYTES % (AUTO) 6.7 %; NEUTROPHILS # (AUTO) 9.7 10^3/uL (1.5-6.6); NEUTROPHILS % (AUTO) 71.3 %; PLT - PLATELET COUNT 289 10^3/uL (130-450); RED BLOOD COUNT 3.22 10^6/uL (4.20-5.40); RED CELL DISTRIBUTION WIDTH 14.6 % (12.0-15.0); WHITE BLOOD COUNT 13.6 x10^3/uL (4.8-10.8)
[2023-03-17 19:12] LABS: CALCIUM 10.4 mg/dL (8.5-10.3); CREATININE 0.7 mg/dL (0.6-1.3); POTASSIUM 4.3 mmol/L (3.5-4.5)
== END 2023-03-17 14:45 | disposition home or self-care (01) ==
LOC: LAB.N 14:30
PROVIDERS: ATTEND Physician Assistant Medical
DX: R19.7 Diarrhea, unspecified (principal)
CPT/HCPCS: 36415; 80048; 80053; 85025

== ENCOUNTER 2023-03-20 12:37 | Outpatient (CLI) | payer MEDICARE, OTHER | END 2023-03-20 12:38 | disposition home or self-care (01) | LOC: LAB.R 12:37 | PROVIDERS: ATTEND Physician Assistant Medical | DX: R19.7 Diarrhea, unspecified (principal) | CPT/HCPCS: 87045; 87046; 87177; 87427 ==

== ENCOUNTER 2023-08-21 11:58 | Outpatient (CLI) | payer MEDICARE, OTHER ==
--- NOTE | 2023-08-21 12:26 | SLEEP CARE CONSULTATION ---
Information from patient questionnaire entered by Jose Landers. I have reviewed and concur with the information entered by Jose Landers. This document represents the service I personally performed and the decisions made by me, Daniel Marquis MD, [facility]. History of Present Illness Service Date and Time: 08/21/2023 1158 Previous diagnosis: Mild, Obstructive Sleep Apnea-Hypopnea Syndrome AHI: 5.6 (in 2019) Reason for follow up: annual (LAST SEEN 07/2022) Equipment type: CPAP (RESMED SD) Equipment obtained from: [facility] Mask style: Nasal (wisp) Prior sleep studies: Yes Year and Where: [facility]; 2004 - in [facility] additional information: Mrs. Devi returned today for an annual follow up of nasal CPAP therapy. She also has questions regarding the recall. She was diagnosed to have mild obstructive sleep apnea-hypopnea syndrome (AHI was 5.6 by a home sleep apnea test). The patient recently acquired a new ResMed AirSense 10 from [facility]. She wears a Respironics Wisp nasal mask. She uses the device nightly and all through the night. The compliance data show usage in 180 out of the past 180 nights, averaging 9 hours a night. The residual AHI is 1.8 and average air leak is 2.8 L/minute. She thinks that the pressure of 4 6 cmH2O is comfortable. On the CPAP therapy she notices improvement in her sleep quality, and that she wakes up feeling fresher in the morning and more awake/alert during the day. The [place] Sleepiness Scale score 15. Her notices no snore at all. She is now using oxygen at night for pulmonary fibrosis at 5 L/minute. Sleep Study - Results Prior sleep studies: Yes Year and Where: 2018 - [facility]; 2004 - in [place], [place] CPAP Compliance Data - Data Reviewed with Patient Average duration of nightly device use: 8HRS 55MINS Compliance rate %: 100 (08/17/22-08/16/23) Current pressure setting (cmH2O): 4-6 Average residual AHI: 1.8 Subjective Initial [place] Sleepiness Scale score: 8 (in 2014) Allergies and Home Medications Drug allergies reviewed: Yes Allergy and home medication list: Allergies No Known Drug Allergies Allergy (Verified 08/17/23 15:09) Physical Exam Vital signs obtained and entered by: JOSE Napier MA Height: 5 ft 7 in Impression and Plan 1. Obstructive Sleep Apnea-Hypopnea Syndrome, mild (AHI was 5.6), with the patient doing well on her new machine. She continues to have excellent compliance and significant clinical improvement. The current pressure appears effective and comfortable. Overall, she is very satisfied with treatment and plans to continue with it long-term. PLAN: 1. Continue with autoCPAP set at 4 6 cmH2O + oxygen at night. 2. Try Respironics DreamWear nasal cushion mask again with the arm to bring the back strap lower. 3. Get an adaptor for oxygen to use with her CPAP. Follow up with Sleep Care in: 1 year Visit Type: Telehealth Phone Patient Location: Home Other Participants: Spouse/Significant Other Location of Provider: Office Patient agrees and consents to this telehealth visit type: Yes Patient agrees to have their insurance billed: Yes Time Spent with Patient (minutes): 15 Provider Statement: I spent 100% of the Telehealth Phone Call with the patient with greater than 50% spent counseling the patient and coordination of care.
== END 2023-08-21 11:59 | disposition home or self-care (01) ==
LOC: SC 11:58
PROVIDERS: ATTEND Internal Medicine Pulmonary Disease
DX: G47.33 Obstructive sleep apnea (adult) (pediatric) (principal); Z99.81 Dependence on supplemental oxygen; J84.10 Pulmonary fibrosis, unspecified
CPT/HCPCS: 99441

== ENCOUNTER 2024-05-28 01:44 | Inpatient (IN) ==
--- NOTE | 2024-05-28 01:45 | ED Physician Documentation ---
PD HPI DYSPNEA Stated complaint Stated Complaint: SOA/C+ Chief complaint Chief Complaint: Resp Additional information Additional information: HPI from patient, EMS. BIBA. Patient complains of worsening dyspnea and cough above her baseline. Patient is a vague historian at times, but she eventually indicates to me that she has felt worse than her baseline dyspnea over the past several days. She uses 4 L oxygen nasal cannula per minute at home for her pulmonary fibrosis. She says she does not use inhalers nor nebulizer. Patient also complains of generalized weakness. She says she took COVID tests at home but she also says to me that she did not understand how to interpret the results. She says she is taking an anbtibiotic for UTI but cannot recall which one. She says she did not see her PCP for this but her description of events suggests she called her PCP's office and was prescribed an antibiotic based on symptoms. EMS reports that upon their arrival to the patient's house, if the patient had a pulse ox in the mid/upper 60s. However, they note that she was using a CPAP machine that was meant for nasal use only, and that she was asleep and breathing through her mouth (thus was likely not receiving appropriate supplemental oxygen as a result). With placement of 4 L nasal cannula oxygen, patient pulse ox improved to the upper 90s. Patient denies chest pain, palpitations. EMS also notes rapid atrial fibrillation. The patient tells me she has never heard of atrial fibrillation/A-fib and is not aware of ever having being diagnosed. However, EMS says that patient's indicated the patient does carry diagnosis of atrial fibrillation. Patient tells me she does not take any blood thinners Meds/Allgy Home Medications Ambulatory Orders Medication Instructions Recorded Confirmed ondansetron 4 mg disintegrating 4 mg translingual Q6H PRN Nausea / 10/31/22 tablet Vomiting #10 tabs vancomycin 125 mg capsule 125 mg PO QID 10 days #40 caps 10/31/22 alendronate 70 mg tablet mg PO 05/28/24 glimepiride 1 mg tablet mg 05/28/24 losartan 50 mg tablet mg 05/28/24 metoprolol succinate 25 mg mg PO 05/28/24 tablet,extended release 24 hr metoprolol tartrate 25 mg tablet mg 05/28/24 nitrofurantoin 100 mg PO BID 05/28/24 05/28/24 monohydrate/macrocrystals 100 mg capsule pantoprazole 40 mg tablet,delayed mg PO 05/28/24 release Allergies Allergies Allergy/AdvReac Type Severity Reaction Status Date / Time No Known Drug Allergies Allergy Verified 08/17/23 15:21 [facility] Social History Social History Smoking Status: Unknown if ever smoked Home Mobility Equipment: Cane and Wheeled walker Do you feel safe in your home environment?: Yes Suffered physical, verbal, emotional, or financial abuse?: No Exam Constitutional normal general appearance, no apparent distress (NAD at rest but dyspneic w/ conversation, parsing sentences) and alert Respiratory breath sounds equal bilaterally and auscultation abnormal (diminished breath sound) and other (course, diffuse/bilateral rhonchi) Cardiovascular heart rate abnormal (tachycardic), rhythm abnormal (irregular), no JVD and edema noted (2+ pitting edema BLE) Gastrointestinal abdomen soft to palpation and nontender to palpation Extremities abnormal to inspection Psychiatry mental status grossly normal, oriented x3 and cooperative Skin skin color normal Results Vitals Vitals: Vital Signs - 24 hr 05/28/24 01:49 05/28/24 02:12 05/28/24 03:10 Temperature 36.1 C L Temperature Source Temporal Artery Scan Pulse Rate 143 H 141 H Respiratory Rate 20 Blood Pressure 170/102 H 160/99 H O2 Saturation 99 Oxygen Delivery Method Nasal Cannula O2 Source Nasal cannula If not protocol: Oxygen Flow, liters/minute 4 4 Pain Intensity 0 0 05/28/24 03:27 05/28/24 03:38 05/28/24 03:48 Temperature Temperature Source Pulse Rate 104 H 120 H 114 H Respiratory Rate Blood Pressure 143/89 H 144/86 H 154/86 H O2 Saturation Oxygen Delivery Method O2 Source If not protocol: Oxygen Flow, liters/minute Pain Intensity 0 0 0 05/28/24 04:05 05/28/24 04:17 05/28/24 04:30 Temperature Temperature Source Pulse Rate 117 H 100 H 96 H Respiratory Rate Blood Pressure 154/88 H 139/80 H 139/90 H O2 Saturation Oxygen Delivery Method O2 Source If not protocol: Oxygen Flow, liters/minute Pain Intensity 0 0 0 05/28/24 04:50 05/28/24 05:04 05/28/24 06:50 Temperature 37.1 C Temperature Source Pulse Rate 103 H 117 H 126 H Respiratory Rate 22 24 Blood Pressure 146/94 H 176/98 H O2 Saturation 98 Oxygen Delivery Method O2 Source Nasal cannula Nasal cannula If not protocol: Oxygen Flow, liters/minute 4 4 Pain Intensity 0 0 Oxygen O2 Source Nasal cannula EKG (time done) 01:57: EKG releavant findings:: EKG personally interpreted by author of this note. Relevant findings are: Rate: Rate (enter#) (140) Rhythm: Atrial fibrillation [place]: LAD and Anterior hemiblock QRS: Normal (NSIVCD) Ischemia: Non specific changes (I, aVL) Labs Labs: Laboratory Tests 05/28/24 05/28/24 05/28/24 01:53 03:37 05:00 WBC 12.8 H RBC 3.60 L Hgb 11.0 L Hct 35.3 L MCV 98.1 MCH 30.6 MCHC 31.2 L RDW 14.1 Plt Count 184 MPV 10.1 Neut # (Auto) 10.9 H Lymph # (Auto) 0.7 L [place] # (Auto) 1.0 Eos # (Auto) 0.0 Baso # (Auto) 0.1 Absolute Nucleated RBC 0.00 Nucleated RBC % 0.0 Sodium 129 L Potassium 3.8 Chloride 95 L Carbon Dioxide 25 Anion Gap 9.0 BUN 9 Creatinine 0.6 Estimated GFR (MDRD) 95 Glucose 161 H Calcium 9.8 Total Bilirubin 0.7 AST 25 ALT 20 Alkaline Phosphatase 36 L Troponin I High Sens 17.5 H* 26.3 H* B-Natriuretic Peptide 364 H Total Protein 7.8 Albumin 3.5 Globulin 4.3 H Albumin/Globulin Ratio 0.8 L Lipase < 10 L Urine Color YELLOW Urine Clarity CLEAR Urine pH 6.5 Ur Specific [employer] [place] 1.015 Urine Protein NEGATIVE Urine Glucose (UA) NEGATIVE Urine Ketones 15 H Urine Occult Blood NEGATIVE Urine Nitrite NEGATIVE Urine Bilirubin NEGATIVE Urine Urobilinogen 0.2 (NORMAL) Ur Leukocyte Esterase NEGATIVE Ur Microscopic Review NOT INDICATED Urine Culture Comments NOT INDICATED Nasal Adenovirus (PCR) NOT DETECTED Nasal B. parapertussis DNA (PCR) NOT DETECTED Nasal Coronavir 229E PCR NOT DETECTED Nasal Coronavir HKU1 PCR NOT DETECTED Nasal Coronavir NL63 PCR NOT DETECTED Nasal Coronavir OC43 PCR NOT DETECTED Nasal Enterovir/Rhinovir PCR NOT DETECTED Nasal Influenza B PCR NOT DETECTED Nasal Influenza A PCR NOT DETECTED Nasal Parainfluen 1 PCR NOT DETECTED Nasal Parainfluen 2 PCR NOT DETECTED Nasal Parainfluen 3 PCR NOT DETECTED Nasal Parainfluen 4 PCR NOT DETECTED Nasal RSV (PCR) NOT DETECTED Nasal B.pertussis DNA PCR NOT DETECTED Nasal C.pneumoniae (PCR) NOT DETECTED Sg Human Metapneumo PCR NOT DETECTED Nasal M.pneumoniae (PCR) NOT DETECTED Nasal SARS-CoV-2 (PCR) DETECTED A Rads (name of study) chest xray: Relevant Findings:: Prelim report reviewed and See rad report CTA chest: Relevant Findings:: Prelim report reviewed, See rad report and Other ("1. No CT evidence of pulmonary embolus 2. Normal caliber thoracic aorta 3. Bilateral extensive interstitial and airspace disease either cardiogenic or pneumonic. small right pleural effusion. probable reactive mediastinal lymph nodes. sliding hiatal hernia" (radiologist's interpretation)) PD Medical Decision Making ED course Complexity details: reviewed results, re-evaluated patient, considered differential and d/w patient ED course: Mild leukocytosis (WBC 12.8). Mild hyponatremia (129). Preserved renal function (BUN, creatinine, GFR all normal). hs-cTn 17.5 with repeat (over 3 hours later) 26.3. Patient arrives in rapid atrial fibrillation with heart rate in the 140s. Stable blood pressures. She is given 10 mg IV Cardizem which decreased the heart rate to the 100s-110s, subsequent gradually increasing tachycardia requiring repeat dose (10 mg IV Cardizem). The second dose resulted in heart rates in the mid 90-100s. Late in ED stay, she is given a third dose as the heart rate gradually again was in the 120s to 130s. chest xray interpreted by radiologist as "diffuse bilateral fine reticular and ground-glass opacities likely representing evidence of pulmonary edema and failure". Nichelle's xray is markedly different compared to the previous that I have available in PACS, but the most recent CXR in that system is from January 2022. Patient indicates to me nearly all of her care has been through [facility] and providers based in [place] (including her pulmonology group); thus, I suspect she has more recent chest x-rays that I am not able to access from my system. Elevated BNP is noted (364). Her urinalysis is normal. She is given 2 puffs of albuterol via MDI, 10 mg IV Decadron, and 40 mg IV Lasix. I discussed this case with the [facility] telehealth practitioner on duty and he will admit to [facility], hospitalist service, for further management of her acute dyspnea as well as further attempt at better control of her heart rate. Note that I called the contact number on the chart for her but no answer (I left a message to call the ER as soon as possible). Regarding POLST, patient does not know what this is nor does she seem to have even pondered the concepts when I discuss with her, in layperson terms, what her wishes would be regarding level of treatment/management (such as CPR, intubation, defibillation ("shocks")). She tells me I should speak to her about this information (and I have still not heard back from him at the end of my shift). Discharge Plan Discharge Patient Disposition: [facility] DC/Xfer Condition: Stable Clinical Impression: Dyspnea, COVID-19, Atrial fibrillation with RVR Interventions: ED Admission Assessment Last Done: 05/28/24 07:17
[2024-05-28 02:57] LABS: BASOPHILS # (AUTO) 0.1 10^3/uL (0.0-0.1); BASOPHILS % (AUTO) 0.5 %; EOSINOPHILS % (AUTO) 0.2 %; HCT - HEMATOCRIT 35.3 % (37.0-47.0); LYMPHOCYTES # (AUTO) 0.7 10^3/uL (1.5-3.5); LYMPHOCYTES % (AUTO) 5.5 %; MEAN CORPUSCULAR HEMOGLOBIN 30.6 pg (27.0-31.0); MEAN CORPUSCULAR HGB CONC 31.2 g/dL (32.0-36.0); MEAN CORPUSCULAR VOLUME 98.1 fL (81.0-99.0); MEAN PLATELET VOLUME 10.1 fL (7.9-10.8); MONOCYTES % (AUTO) 7.8 %; NEUTROPHILS # (AUTO) 10.9 10^3/uL (1.5-6.6); NEUTROPHILS % (AUTO) 85.4 %; PLT - PLATELET COUNT 184 10^3/uL (130-450); RED CELL DISTRIBUTION WIDTH 14.1 % (12.0-15.0); WHITE BLOOD COUNT 12.8 x10^3/uL (4.8-10.8)
[2024-05-28 03:12] LABS: ALBUMIN 3.5 g/dL (3.2-5.5); ALBUMIN/GLOBULIN RATIO 0.8 (1.0-2.2); ALKALINE PHOSPHATASE 36 IU/L (42-121); ALT ALANINE AMINOTRANSFERASE 20 IU/L (10-60); AST ASPARTATE AMINOTRANSFERASE 25 IU/L (10-42); BILIRUBIN,TOTAL 0.7 mg/dL (0.2-1.0); BUN - BLOOD UREA NITROGEN 9 mg/dL (6-20); CALCIUM 9.8 mg/dL (8.5-10.3); CARBON DIOXIDE - CO2 25 mmol/L (21-32); CHLORIDE 95 mmol/L (101-111); CREATININE 0.6 mg/dL (0.6-1.3); GFR - MDRD 95 (>89); GLUCOSE 161 mg/dL (74-104); POTASSIUM 3.8 mmol/L (3.5-4.5); SODIUM 129 mmol/L (135-145); TOTAL PROTEIN 7.8 g/dL (6.4-8.9)
[2024-05-28] MEDS: diltiaZEM INJ 5 MG/ML VIAL IVP STA ×3 (03:12→06:51)
[2024-05-28 03:21] LABS: CORONAVIRUS 229E-RESP PCR NOT DETECTED; CORONAVIRUS HKU1-RESP PCR NOT DETECTED; CORONAVIRUS NL63-RESP PCR NOT DETECTED; CORONAVIRUS OC43-RESP PCR NOT DETECTED
[2024-05-28 03:22] LABS: B. PARAPERTUSSIS- RESP PCR PAN NOT DETECTED; B. PERTUSSIS- RESP PCR PANEL NOT DETECTED; C. PNEUMONIAE- RESP PCR PANEL NOT DETECTED; HUMAN METAPNEUMOVIRUS NOT DETECTED; INFLUENZA A- RESP PCR PANEL NOT DETECTED; INFLUENZA B - RESP PCR PANEL NOT DETECTED; M. PNEUMONIAE- RESP PCR PANEL NOT DETECTED; PARAINFLUENZA VIRUS 1 NOT DETECTED; PARAINFLUENZA VIRUS 2 NOT DETECTED; PARAINFLUENZA VIRUS 3 NOT DETECTED; PARAINFLUENZA VIRUS 4 NOT DETECTED; RHINOVIRUS/ENTEROVIRUS NOT DETECTED; RSV- RESP PCR PANEL NOT DETECTED; SARS-CoV-2 -RESP PCR PANEL DETECTED
[2024-05-28 03:23] LABS: LIPASE < 10 U/L (11-82); TROPONIN I HIGH SENSITIVITY 17.5 ng/L (2.3-14.8)
[2024-05-28 03:44] LABS: BILIRUBIN,URINE NEGATIVE (NEGATIVE); GLUCOSE, URINE (UA) NEGATIVE (NEGATIVE); KETONES,URINE (UA) 15 mg/dL (NEGATIVE); LEUKOCYTE ESTERASE, URINE NEGATIVE (NEGATIVE); NITRITE,URINE NEGATIVE (NEGATIVE); OCCULT BLOOD,URINE NEGATIVE (NEGATIVE); PH,URINE 6.5 PH (5.0-7.5); PROTEIN,URINE NEGATIVE (NEGATIVE); UROBILINOGEN,URINE 0.2 (NORMAL) E.U./dL (NORMAL)
[2024-05-28 03:46] LABS: CLARITY,URINE CLEAR (CLEAR)
[2024-05-28] MEDS: ALBUTEROL 1 PUFF INH STA (04:50)
[2024-05-28] MEDS: DEXAMETHASONE 10 MG/ML VIAL IVP STA (04:52)
[2024-05-28] MEDS: FUROSEMIDE 40 MG/4 ML VIAL IVP STA (04:52)
[2024-05-28] MEDS ORDERED: iohexoL-300 100 ML VIAL ONE (04:53)
[2024-05-28] MEDS: iohexoL-300 100 ML VIAL IVP ONE (05:28)
[2024-05-28] MEDS ORDERED: MELATONIN 3 MG TABLET PO PRN (06:32)
[2024-05-28 07:27] LABS: CHOL/HDL RATIO 2.7 (<4.4); CHOLESTEROL 120 mg/dL; HDL CHOLESTEROL 45 mg/dL; LDL CHOLESTEROL,CALCULATED 60 mg/dL; LDL/HDL RATIO 1.3 (<4.4); TRIGLYCERIDES 74 mg/dL; VLDL CHOLESTEROL 15 mg/dL
[2024-05-28 07:39] LABS: THYROID STIMULATING HORMONE 0.57 uIU/mL (0.34-5.60)
--- NOTE | 2024-05-28 09:03 | CT Report ---
PROCEDURE: CT Angio Chest INDICATIONS: dyspnea CONTRAST: Omni 300, 80mls TECHNIQUE: After the administration of intravenous contrast, 2 mm axial images were acquired from the pulmonary apices to the posterior costophrenic angles during the arterial phase. In addition, 1 mm lung kernel and 5 mm soft tissue kernel reconstructions were performed. 3-dimensional coronal oblique maximum int ensity projection (MIP) reformats, 8 mm axial MIP, and 5 mm coronal and sagittal MPR reformats were t hen performed through the thorax. For radiation dose reduction, the following was used: automated exp osure control, adjustment of mA and/or kV according to patient size. COMPARISON: None. FINDINGS: Image quality: Diagnostic with examination limited by respiratory motion. Large vessels: No filling defects within the opacified pulmonary arteries, accounting for motion and contrast timing. No evidence of acute aortic syndrome or aortic aneurysm. Lungs and pleura: Multifocal interstitial and airspace opacities throughout both lungs. Small right-sided pleural effusion and a trace effusion within the left lung base. Mediastinum: Heart size is enlarged. Reflux of contrast is seen into the IVC and hepatic veins. Mildly enlarged precarinal lymph node measuring 1.7 cm in greatest transverse dimension (series 5, im age 33). Additional smaller low borderline enlarged upper paratracheal lymph nodes. Large hiatal hernia with the majority of the stomach located within the thoracic cavity. Chest wall and lower neck: Thyroid is unremarkable. No axillary or supraclavicular adenopathy by size . Bones: Multilevel chronic appearing compression deformities involving T6, T7, T8, T10 and T12 vertebr al bodies. Upper Abdomen: Partially imaged small calcified gallstones within the gallbladder lumen. IMPRESSION: 1. No evidence of pulmonary artery thromboembolism. 2. Multifocal airspace and interstitial opacities throughout both lungs seen in association with smal l right-sided pleural effusion and trace left pleural effusion. Findings possibly related to infectio us or inflammatory pneumonitis. Other considerations include pulmonary and interstitial edema which i s seen in conjunction with cardiomegaly and evidence of congestive change with reflux into IVC and he patic veins. 3. Large hiatal hernia with majority of the stomach located above the diaphragm. Findings are concordant with preliminary interpretation provided by [facility]. Reviewed by: Reinaldo Melton MD on 05/28/2024 9:02 AM PDT Approved by: Reinaldo Melton MD on 05/28/2024 9:02 AM PDT Station ID: [id number]
[2024-05-28] MEDS: MULTIVITAMIN W/MINERALS TABLET PO SCH (09:06)
[2024-05-28] MEDS: ZINC SULFATE 220 MG CAPSULE PO SCH (09:06)
[2024-05-28] MEDS: guaiFENesin 600 MG TABLET PO SCH (09:06)
[2024-05-28] MEDS: ASCORBIC ACID 500 MG TABLET PO SCH (09:06)
[2024-05-28] MEDS: CHOLECALCIFEROL 400 UNIT TABLET PO SCH (09:06)
[2024-05-28] MEDS: LACTOBACILLUS RHAMNOSUS GG CAPSULE PO SCH (09:06)
[2024-05-28] MEDS: METOPROLOL SUCCINATE 25 MG TABLET PO SCH (09:06)
[2024-05-28] MEDS: LOSARTAN 50 MG TABLET PO SCH (09:06)
--- NOTE | 2024-05-28 09:06 | XRAY Report ---
PROCEDURE: XR Chest 1V INDICATIONS: dyspnea TECHNIQUE: One view of the chest was acquired. COMPARISON: 02/10/2022 FINDINGS: Surgical changes and devices: None. Lungs and pleura: Diffuse interstitial and airspace opacities throughout both lungs. No evidence of pneumothorax. Small bilateral pleural effusions. Mediastinum: Mediastinal contours appear normal. Heart size is normal. Bones and chest wall: Severe degenerative changes involving both shoulders. Superior subluxation of the right humeral head suggestive of chronic rotator cuff tear. Question of several small intra-artic ular loose bodies within the left subacromial joint space. IMPRESSION: Diffuse interstitial and airspace opacities throughout both lungs possibly related to infectious or i nflammatory pneumonitis versus fluid overload. Findings are concordant with preliminary interpretation provided by [facility]. Reviewed by: Reinaldo Melton MD on 05/28/2024 9:05 AM PDT Approved by: Reinaldo Melton MD on 05/28/2024 9:05 AM PDT Station ID: [id number]
[2024-05-28] MEDS: cefTRIAXone 1 GM in SODIUM CHLORIDE 0.9% MINIBAG 100 ML IV SCH (09:10)
[2024-05-28] MEDS: ENOXAPARIN 60 MG/0.6 ML SYRINGE SUBQ SCH (09:10)
[2024-05-28] MEDS: PANTOPRAZOLE 40 MG TABLET PO SCH (09:27)
[2024-05-28] MEDS: AZITHROMYCIN INJ 500 MG in SODIUM CHLORIDE 0.9% 250 ML IV SCH (10:00)
[2024-05-28 10:13] LABS: ESTIMATED AVERAGE GLUCOSE 169 mg/dL (70-100); HEMOGLOBIN A1c% 7.5 % (4.27-6.07)
--- NOTE | 2024-05-28 11:38 | HISTORY & PHYSICAL EXAMINATION ---
Chief Complaint <Gurwinder Locke - Last Filed: 05/28/24 14:35> Chief Complaint Chief Complaint: Atrial fibrillation with RVR <Reji Kendrick DNP - Last Filed: 05/28/24 14:35> Chief Complaint Chief Complaint: Shortness of breath History of Present Illness <Gurwinder Locke - Last Filed: 05/28/24 14:35> Admitted From Admitted From:: ED History Obtained From History obtained from: patient History of Present Illness HPI Comment/Other: 88 year old female with a past medical history of pulmonary fibrosis( 4 L oxygen nasal cannula per minute at home), essential hypertension, hyperlipidemia, obstructive sleep apnea, diabetes mellitus, osteoarthritis, and clostridium difficile who was seen at the emergency department this morning due to dyspnea with exertion and was admitted today for new onset atrial fibrillation. Patient states that symptoms began approximately one month ago with dyspnea with exterion but was able to ambulate and take care of herself. She says 1 week ago the dyspnea began to worsen to the point that she was unable to ambulate due to dyspnea and weakness, says "her legs don't work anymore". She says that yesterday she was in her recliner then suddenly she slid off the recliner on to the floor and says her had some people move her to her bed room. Then later that night in her bed she had shortness of breath but says it was when she tried to exert herself then told her she needed to go the the emergency department and the ambulance was called. The ED reports that the EMS reports that upon their arrival to the patient's house, if the patient had a pulse ox in the mid/upper 60s. However, they note that she was using a CPAP machine that was meant for nasal use only, and that she was asleep and breathing through her mouth but was given 4L of O2 and sats increased to upper 90s. She denies fever, chills, congestion, cough, chest pain, palpitations and denies that her slid to the floor was syncope. She denies any known sick contacts and recent travel as she does not leave her home much but says her daughter visits her frequently. She also denies having a history of atrial fibrillation and is not on anticoagulants. Also, she reports having a good memory and is able to walk through series of events of her symptoms from onset. She says she has tried taking at home COVID tests but was unable to understand what she was looking at and states she was taking an antibiotics for UTI but is unsure on which she is on. Meds/Allgy <Gurwinder Locke - Last Filed: 05/28/24 14:35> Home Medications Ambulatory Orders Medication Instructions Recorded Confirmed ondansetron 4 mg disintegrating 4 mg translingual Q6H PRN Nausea / 10/31/22 tablet Vomiting #10 tabs vancomycin 125 mg capsule 125 mg PO QID 10 days #40 caps 10/31/22 alendronate 70 mg tablet mg PO 05/28/24 glimepiride 1 mg tablet mg 05/28/24 losartan 50 mg tablet mg 05/28/24 metoprolol succinate 25 mg mg PO 05/28/24 tablet,extended release 24 hr metoprolol tartrate 25 mg tablet mg 05/28/24 nitrofurantoin 100 mg PO BID 05/28/24 05/28/24 monohydrate/macrocrystals 100 mg capsule pantoprazole 40 mg tablet,delayed mg PO 05/28/24 release Allergies Allergies Allergy/AdvReac Type Severity Reaction Status Date / Time No Known Drug Allergies Allergy Verified 08/17/23 15:21 PFSH <Gurwinder Locke - Last Filed: 05/28/24 14:35> Medical History Medical History (Updated 05/28/24 @ 14:27 by Reji Kendrick DNP) HLD (hyperlipidemia) Pulmonary fibrosis Obstructive sleep apnea Diabetes mellitus Essential hypertension C. difficile diarrhea Surgical History Surgical History (Updated 05/28/24 @ 11:42 by Gurwinder Locke) H/O Spinal surgery Social History Social History (Updated 05/28/24 @ 14:02 by Gurwinder Locke) Smoking Status: Former smoker Number of Years Smoked: 3 Do you dip or chew tobacco?: No Do you vape?: No Level: Assisted Home Mobility Equipment: Walker Do you feel safe in your home environment?: Yes Suffered physical, verbal, emotional, or financial abuse?: No Review of Systems <Gurwinder Locke - Last Filed: 05/28/24 14:35> Constitutional Reports: Malaise; Denies: Fever or Chills Eyes Denies: Pain Ears, nose, mouth, and throat Reports: Hearing aids and Dry mouth; Denies: Nasal congestion, Post nasal drip or Hoarseness Cardiovascular Reports: Irregular heart rate, edema, swelling of feet/ankles (2+) and shortness of breath with exertion; Denies: chest pain, Syncope or shortness of breath when lying down Respiratory Reports: Shortness of breath and SOB with exertion; Denies: Cough, Sputum production, Wheezing or SOB at rest Gastrointestinal Denies: Abdominal pain Genitourinary Reports: Urinary incontinence Musculoskeletal Reports: Back pain Integumentary/Breast Denies: Rash or Changes in skin color Neurological Denies: Memory problems or Behavioral changes Psychiatric Denies: Memory loss Endocrine Denies: Excessive urination Hematologic/Lymphatic Denies: Anemia Allergic/Immunologic Denies: Hives, Facial swelling or Wheezing Exam <Gurwinder Locke - Last Filed: 05/28/24 14:35> Constitutional normal general appearance HENMT normocephalic, head/scalp atraumatic, nasal mucous membranes normal and oral mucous membranes normal Eyes PERRL, EOMs intact bilaterally, conjunctivae normal and no scleral icterus Neck/C-Spine visual inspection normal Lymph no lymphadenopathy noted Chest inspection of chest normal Respiratory breath sounds equal bilaterally, normal respiratory effort and no use of accessory muscles breath sounds equal bilaterally and auscultation abnormal diminished breath sound and course, diffuse/bilateral rhonchi Cardiovascular no JVD Gastrointestinal abdomen normal to inspection Back/Pelvis spine normal to inspection Extremities normal to inspection 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 Patient was given 3 doses of IV push diltiazem in the emergency department which resolved the arrhythmia. Consult cardiology Update EKG Echocardiogram. Continue home dose of Metoprolol Succinate 25mg. (3) COVID-19: Plan: COVID19 positive. Monitor oxygen requirements closely and consider prone position or escalation if condition worsens. Continue 4L O2. Continue Decadron for symptomatic relief. Lab Results Lab results reviewed: Yes 05/28/24 01:53 05/28/24 01:53 Other Lab Results: COVID19- positive Troponin: intial 17.5 F/U troponin: 26.3 Diagnostic Imaging Results Diagnostic Imaging Results Comments: CXR:Diffuse interstitial and airspace opacities throughout both lungs possibly related to infectious or inflammatory pneumonitis versus fluid overload. CTA:1. No evidence of pulmonary artery thromboembolism. 2. Multifocal airspace and interstitial opacities throughout both lungs seen in association with small right-sided pleural effusion and trace left pleural effusion. Findings possibly related to infectious or inflammatory pneumonitis. Other considerations include pulmonary and interstitial edema which is seen in conjunction with cardiomegaly and evidence of congestive change with reflux into IVC and hepatic veins. 3. Large hiatal hernia with majority of the stomach located above the diaphragm. EKG Results EKG Interpreted Independently: No <Reji Kendrick DNP - Last Filed: 05/28/24 14:35> Problem List (1) Acute on chronic respiratory failure with hypoxemia: Plan: Has history of pulmonary fibrosis, on 4 L O2 at home Has had progressive dyspnea over the past several months Manage COVID as below As needed DuoNeb Low threshold to consider VBG On 8 L O2 now (2) Atrial fibrillation with RVR: Plan: New onset atrial fibrillation with RVR with CHADSVAS score of 5 indicating high risk of stroke consider initiate anticoagulation. Patient was given 3 doses of IV push diltiazem in the emergency department which resolved the arrhythmia. Recheck EKG Ordered echocardiogram Continue home dose of Metoprolol Succinate 25mg. Patient says that she has no history of atrial fibrillation, but she has a home prescription for metoprolol and is being seen by meters superintendent, so I am questioning this report. I will go ahead and do a full atrial fibrillation workup (3) COVID-19: Plan: This is likely a contributing factor to her atrial fibrillation with RVR, as well as her hypoxic respiratory failure Decadron 6 mg daily p.o. CTA no PE Consider remdesivir Plan Patient is unsure what she wants her CODE STATUS to be at this time, multiple conversations have been had with her considering her overall poor state of health and increasing oxygen needs. At time of last discussion, she was open to discussing DNR status, and I provided her with information about a POLST form Patient was seen and examined by me with a separate encounter after being seen by MARLEEN student. I reviewed the student's documentation including patient history, physical examination, laboratory, imaging, clinical assessment and treatment plan. I have discussed the management of the patient with the student, and with the patient. There are no changes. Diagnostic Imaging Results Diagnostic Imaging Results: positive Final report reviewed Core Measures <Reji Kendrick DNP - Last Filed: 05/28/24 14:35> DVT/VTE - Prophylaxis VTE/DVT Device ordered at admit?: No VTE/DVT Prophylaxis med ordered at admit?: Yes
[2024-05-28] MEDS: ACETAMINOPHEN 325 MG TABLET PO PRN (11:58)
[2024-05-28] MEDS: BENZONATATE 100 MG CAPSULE PO PRN (13:03)
--- NOTE | 2024-05-28 14:49 | ADVANCE CARE PLANNING NOTE ---
Advance Care Planning Planning Encounter Date: 05/28/24 Time: 14:48 Purpose: Discussed CODE STATUS and advance care planning Parties in Attendance: Patient Decisional Capacity of the Patient: Full capacity Diagnosis for Encounter (1) Acute on chronic respiratory failure with hypoxemia: Summary: Discussed prognosis given her history of pulmonary fibrosis on 4 L O2 at baseline, now on 8 L by open mask. Discussed multiple care options including remdesivir, and escalation of respiratory support. (2) Atrial fibrillation with RVR: (3) COVID-19: Encounter Objective/Medical Story: Pulmonary fibrosis on 4 L home O2, now with acute on chronic respiratory failure secondary to COVID-19 causing in A-fib RVR Goals of Care: Patient would like to return home with her , but understands her poor prognosis given her chronic lung disease with superimposed COVID-19 Plan: Will start remdesivir, change her CODE STATUS to DNR, but patient is okay with short-term intubation/ventilation. I provided her with a POLST form, so she can have an official record of her wishes while she is of sound mind. She request that her is not informed of this decision, as he is not quite ready to discuss the possibility of losing her. Code Status: Do Not Attempt Resuscitation
--- NOTE | 2024-05-28 15:00 | PHARMACY PROGRESS NOTE ---
Best Possible Medication History Admit Date and Time: 05/28/24 [id number] Processed by: Pharmacy Medications reviewed in ED?: Yes Medication History completed: Yes Patient Interview: Pt unable to participate Secondary Source(s): Pharmacy records and Insurance records [facility] Statement: As the person ultimately responsible for medication therapy, providers are able to order a medication from an existing home medication list in [facility] via the "Reconcile Routine" prior to Confirmation of that medication by family readiness support assistant. Such practice is discouraged except when the physician, in their clinical judgment, deems that a medical need exists for a medication without regard to previous use.
[2024-05-28] MEDS: REMDESIVIR 200 MG in SODIUM CHLORIDE 0.9% 250 ML IV ONE (16:10)
[2024-05-29 05:53] LABS: BASOPHILS % (AUTO) 0.1 %; EOSINOPHILS % (AUTO) 0.2 %; HCT - HEMATOCRIT 33.2 % (37.0-47.0); HGB - HEMOGLOBIN 10.9 g/dL (12.0-16.0); LYMPHOCYTES # (AUTO) 1.1 10^3/uL (1.5-3.5); LYMPHOCYTES % (AUTO) 11.8 %; MEAN CORPUSCULAR HGB CONC 32.8 g/dL (32.0-36.0); MEAN CORPUSCULAR VOLUME 94.3 fL (81.0-99.0); MEAN PLATELET VOLUME 9.3 fL (7.9-10.8); MONOCYTES # (AUTO) 1.1 10^3/uL (0.0-1.0); MONOCYTES % (AUTO) 11.4 %; NEUTROPHILS # (AUTO) 7.3 10^3/uL (1.5-6.6); NEUTROPHILS % (AUTO) 76.2 %; PLT - PLATELET COUNT 168 10^3/uL (130-450); RED BLOOD COUNT 3.52 10^6/uL (4.20-5.40); WHITE BLOOD COUNT 9.6 x10^3/uL (4.8-10.8)
[2024-05-29 06:40] LABS: ALBUMIN 3.5 g/dL (3.2-5.5); ALBUMIN/GLOBULIN RATIO 0.8 (1.0-2.2); BILIRUBIN,TOTAL 0.5 mg/dL (0.2-1.0); CALCIUM 9.6 mg/dL (8.5-10.3); CREATININE 0.8 mg/dL (0.6-1.3); MAGNESIUM 1.5 mg/dL (1.7-2.3); POTASSIUM 3.5 mmol/L (3.5-4.5); TOTAL PROTEIN 7.7 g/dL (6.4-8.9)
[2024-05-29] MEDS: LOSARTAN 50 MG TABLET PO SCH (08:39)
[2024-05-29] MEDS: METOPROLOL SUCCINATE 50 MG TABLET PO SCH (08:39)
[2024-05-29] MEDS: SODIUM CHLORIDE 1 GM TABLET PO SCH (08:39)
[2024-05-29] MEDS: dexAMETHasone 4 MG TABLET PO SCH (08:40)
[2024-05-29] MEDS: REMDESIVIR 100 MG in SODIUM CHLORIDE 0.9% 100ML 100 ML IV SCH (10:28)
[2024-05-29] MEDS: MAGNESIUM OXIDE 400 MG TABLET PO SCH (10:29)
[2024-05-29] MEDS ORDERED: REMDESIVIR 100 MG in SODIUM CHLORIDE 0.9% 100ML 100 ML IV SCH (11:00)
--- NOTE | 2024-05-29 13:23 | PROVIDER PROGRESS NOTE ---
Documented by User: Gurwinder Locke 05/29/24 13:51 Subjective Prog Note Date Prog Note Date: 05/29/24 Prog Note Time: 01:13 Subjective Pt reports feeling: Worse Subjective: The patient reports a worsening of her condition since admission. Last night, her oxygen level was increased to 8L, up from her usual maintenance of 4L, but she has since returned to her maintenance level this morning. She expresses experiencing dyspnea at rest, a productive cough with greenish sputum, and heightened fatigue. Despite sleeping through the night, she is unsure why she feels so tired. Additionally, she notes increased thirst due to dry mouth and has been drinking more water than usual to alleviate this symptom. She mentions a significant loss of appetite, stating she has only been able to eat a few bites of food. When she does eat, she needs to moisten her food due to her dry mouth but denies any difficulty swallowing Current Medications Current Medications Current Medications: Current Medications Generic Name Dose Route Start Last Admin Trade Name Freq PRN Reason Stop Dose Admin Acetaminophen 650 mg 05/28/24 06:41 05/28/24 19:56 Acetaminophen 325 Mg Tablet PO 650 mg Q6H PRN Administration pain, fever Albuterol 2 puffs 05/28/24 06:41 Albuterol 1 Puff INH Q2H PRN sob Ascorbic Acid 500 mg 05/28/24 09:00 05/29/24 08:39 Ascorbic Acid 500 Mg Tablet PO 500 mg DAILY ROX Administration Benzonatate 100 mg 05/28/24 06:32 05/28/24 20:57 Benzonatate 100 Mg Capsule PO 100 mg TID PRN Administration Cough Cholecalciferol 800 unit 05/28/24 09:00 05/29/24 08:39 Cholecalciferol 400 Unit Tablet PO 800 unit DAILY ROX Administration Dexamethasone 6 mg 05/29/24 09:00 05/29/24 08:40 Dexamethasone 4 Mg Tablet PO 6 mg DAILY ROX Administration Enoxaparin Sodium 60 mg 05/28/24 09:00 05/29/24 08:38 Enoxaparin 60 Mg/0.6 Ml Syringe SUBQ 60 mg BID ROX Administration Guaifenesin 600 mg 05/28/24 09:00 05/29/24 08:39 Guaifenesin 600 Mg Tablet PO 600 mg BID ROX Administration Remdesivir 100 mg/ Sodium 100 mls @ 200 mls/hr 05/29/24 11:00 05/29/24 10:28 Chloride IV 06/01/24 11:29 200 mls/hr 1100 ROX Administration Lactobacillus Rhamnosus 1 cap 05/28/24 09:00 05/29/24 08:39 Lactobacillus Rhamnosus Gg Capsule PO 1 cap DAILY ROX Administration Losartan Potassium 100 mg 05/29/24 09:00 05/29/24 08:39 Losartan 50 Mg Tablet PO 100 mg DAILY ROX Administration Magnesium Oxide 400 mg 05/29/24 10:15 05/29/24 10:29 Magnesium Oxide 400 Mg Tablet PO 400 mg DAILYWM ROX Administration Melatonin 3 mg 05/28/24 06:32 Melatonin 3 Mg Tablet PO QPM PRN sleep Metoprolol Succinate 50 mg 05/29/24 09:00 05/29/24 08:39 Metoprolol Succinate 50 Mg Tablet PO 50 mg DAILY ROX Administration Multivitamins/Minerals 1 tab 05/28/24 08:00 05/29/24 08:39 Multivitamin W/Minerals Tablet PO 1 tab DAILYWM ROX Administration Pantoprazole Sodium 40 mg 05/28/24 07:15 05/29/24 06:08 Pantoprazole 40 Mg Tablet PO 40 mg QDAC ROX Administration Sodium Chloride 1 gm 05/29/24 08:00 05/29/24 08:39 Sodium Chloride 1 Gm Tablet PO 1 gm TID ROX Administration Zinc Sulfate 220 mg 05/28/24 09:00 05/29/24 08:39 Zinc Sulfate 220 Mg Capsule PO 220 mg DAILY ROX Administration Objective Vital Signs/Intake & Output Reviewed Vital Signs: Yes Vital Signs: Vital Signs x48h Temp Pulse Resp BP Pulse Ox O2 Flow Rate 05/29/24 11:32 36.4 C L 114 H 28 H 139/94 H 97 4 05/29/24 09:02 4 05/29/24 07:55 127 H 158/104 H 05/29/24 07:51 36.3 C L 113 H 22 154/105 H 99 4 05/29/24 05:19 36.7 C 109 H 24 159/101 H 98 4 Intake & Output: Intake & Output 05/27/24 05/28/24 05/29/24 05/30/24 05:59 05:59 05:59 05:59 Intake Total 960 / 960 100 / 100 Output Total 1550 / 1550 400 / 400 Balance -590 / -590 -300 / -300 Weight (kg) 66.8 kg 63.5 kg Objective General Appearance: positive No acute distress and Alert Eyes Bilateral: positive Normal inspection, PERRL and EOMI ENT: positive ENT inspection nml Neck: positive Nml inspection Respiratory: positive Chest non-tender, No respiratory distress and Rales (bilaterally) Abdomen: positive Non-tender and No distention Back: positive Nml inspection Skin: positive Color nml Extremities: positive Non-tender Neurologic/Psychiatric: positive Oriented x3 Lab Results 05/29/24 04:24 05/29/24 04:24 Other Labs: Lab Results x24hrs 05/29/24 05/29/24 Range/Units 09:20 04:24 WBC 9.6 (4.8-10.8) x10^3/uL RBC 3.52 L (4.20-5.40) 10^6/uL Hgb 10.9 L (12.0-16.0) g/dL Hct 33.2 L (37.0-47.0) % MCV 94.3 (81.0-99.0) fL MCH 31.0 (27.0-31.0) pg MCHC 32.8 (32.0-36.0) g/dL RDW 14.0 (12.0-15.0) % Plt Count 168 (130-450) 10^3/uL MPV 9.3 (7.9-10.8) fL Neut # (Auto) 7.3 H (1.5-6.6) 10^3/uL Lymph # (Auto) 1.1 L (1.5-3.5) 10^3/uL [place] # (Auto) 1.1 H (0.0-1.0) 10^3/uL Eos # (Auto) 0.0 (0.0-0.7) 10^3/uL Baso # (Auto) 0.0 (0.0-0.1) 10^3/uL Absolute Nucleated RBC 0.00 x10^3/uL Nucleated RBC % 0.0 /100WBC Sodium 126 L (135-145) mmol/L Potassium 3.5 (3.5-4.5) mmol/L Chloride 90 L (101-111) mmol/L Carbon Dioxide 30 (21-32) mmol/L Anion Gap 6.0 (6-13) BUN 16 (6-20) mg/dL Creatinine 0.8 (0.6-1.3) mg/dL Estimated GFR (MDRD) 68 L (>89) Glucose 104 (74-104) mg/dL Calcium 9.6 (8.5-10.3) mg/dL Magnesium 1.5 L (1.7-2.3) mg/dL Total Bilirubin 0.5 (0.2-1.0) mg/dL AST 24 (10-42) IU/L ALT 23 (10-60) IU/L Alkaline Phosphatase 31 L (42-121) IU/L Troponin I High Sens 30.9 H* (2.3-14.8) ng/L Total Protein 7.7 (6.4-8.9) g/dL Albumin 3.5 (3.2-5.5) g/dL Globulin 4.2 (2.1-4.2) g/dL Albumin/Globulin Ratio 0.8 L (1.0-2.2) TSH 0.54 (0.34-5.60) uIU/mL Diagnostic Imaging Diagnostic Imaging Results: positive Critical result (troponin increase 30.9) ABX Reporting Has patient been on IV antibiotics over the past 48 hours?: No Assessment/Plan Problem List (1) Acute on chronic respiratory failure with hypoxemia: Impression: Patient was on 8L of O2 last night due to worsening respiratory status but has since stabilized and is now back at maintenance of 4L of O2. Notably, troponin levels has increased from 26.3 to 30.9 which may indicate myocardial stress but more likely respiratory driven. Continue to monitor oxygen requirements and cardiac markers closely, and reassess treatment and plan as needed. Check ABG to ensure accurate picture of oxygen. ASA 325 mg loading dose and 81 mg daily due to elevated troponin. (2) Atrial fibrillation with RVR: Impression: Patient experience afib with RVR which has since resolved and increased Metoprolol dose to 100 mg. Will continue to monitor heart rate and rhythm and assess for any reoccurrence. Will maintain current metoprolol dose. (3) COVID-19: Impression: Patient is currently being treated with remdisivir 100mg and Decadron 6mg. She presents with a productive cough producing green sputum on exam, and reports loss of appetite, dyspnea at rest and increased fatigue.Continue antiviral therapy and steroid therapy. Not likely secondary bacterial infection so antibiotics were discontinued. Monitor respiratory status closely, given the dyspnea and fatigue. Evaluate for the need for further supportive treatments. Documented by User: Reji Kendrick DNP 05/29/24 14:22 Objective Lab Results 05/29/24 04:24 05/29/24 04:24 Assessment/Plan Problem List (1) Acute on chronic respiratory failure with hypoxemia: (2) Atrial fibrillation with RVR: (3) COVID-19:
[2024-05-29] MEDS: ASPIRIN 325 MG TABLET PO ONE (14:14)
[2024-05-29 20:31] LABS: ABG HCO3 25.9 mmol/L (22.0-26.0); ABG PCO2 40 mmHg (34-45); ABG PH 7.43 (7.35-7.45); ABG PO2 140 mmHg (80-100); ABG TCO2 27.1 MMOL/L (21.0-29.0)
[2024-05-29 20:32] LABS: ABG BASE EXCESS 1.5 mmol/L (-2.0-3.0); ABG OXYGEN SATURATION 99 % (94-98); ALLEN TEST POSITIVE
[2024-05-30 05:38] LABS: BASOPHILS % (AUTO) 0.1 %; HCT - HEMATOCRIT 32.2 % (37.0-47.0); HGB - HEMOGLOBIN 10.6 g/dL (12.0-16.0); LYMPHOCYTES # (AUTO) 0.9 10^3/uL (1.5-3.5); MEAN CORPUSCULAR HEMOGLOBIN 31.2 pg (27.0-31.0); MEAN CORPUSCULAR HGB CONC 32.9 g/dL (32.0-36.0); MEAN CORPUSCULAR VOLUME 94.7 fL (81.0-99.0); MEAN PLATELET VOLUME 8.9 fL (7.9-10.8); MONOCYTES # (AUTO) 0.8 10^3/uL (0.0-1.0); MONOCYTES % (AUTO) 8.4 %; NEUTROPHILS # (AUTO) 7.8 10^3/uL (1.5-6.6); NEUTROPHILS % (AUTO) 82.1 %; PLT - PLATELET COUNT 153 10^3/uL (130-450); RED CELL DISTRIBUTION WIDTH 14.2 % (12.0-15.0); WHITE BLOOD COUNT 9.5 x10^3/uL (4.8-10.8)
[2024-05-30 05:58] LABS: CALCIUM 9.2 mg/dL (8.5-10.3); CREATININE 0.7 mg/dL (0.6-1.3); POTASSIUM 3.4 mmol/L (3.5-4.5)
[2024-05-30] MEDS: ASPIRIN EC 81 MG TABLET PO SCH (08:25)
--- NOTE | 2024-05-30 12:16 | PROVIDER PROGRESS NOTE ---
Documented by User: Gurwinder Locke 05/30/24 13:57 Subjective Prog Note Date Prog Note Date: 05/30/24 Prog Note Time: 11:30 Subjective Pt reports feeling: Improved Subjective: An 88-year-old female with a history of pulmonary fibrosis has recently been diagnosed with COVID-19, presenting with acute hypoxic respiratory failure and new-onset atrial fibrillation. Today, she reports a cough producing krishna brown sputum and dry mouth, but overall, she seems improved compared to yesterday. Her medical history includes a recent urinary tract infection, for which she completed only 3 out of the prescribed 7 days of antibiotics prior to admission will order a urinalysis to verify. We have discussed her treatment preferences should her condition worsen, and she expressed a desire for minimal intervention. However, her , her designated medical decision-maker, disagrees with her wishes, necessitating a complex end-of-life care discussion to reconcile their differing preferences. Currently, the patient is on 2 L of oxygen, reduced from 4 L maintenance the previous day when she required 8 L. Her sodium level has slightly improved from 126 to 127, leading to fluid restrictions due to chronic hyponatremia. A moist and minced diet will be implemented as part of her care plan. Current Medications Current Medications Current Medications: Current Medications Generic Name Dose Route Start Last Admin Trade Name Freq PRN Reason Stop Dose Admin Acetaminophen 650 mg 05/28/24 06:41 05/29/24 17:25 Acetaminophen 325 Mg Tablet PO 650 mg Q6H PRN Administration pain, fever Albuterol 2 puffs 05/28/24 06:41 Albuterol 1 Puff INH Q2H PRN sob Ascorbic Acid 500 mg 05/28/24 09:00 05/30/24 08:23 Ascorbic Acid 500 Mg Tablet PO 500 mg DAILY ROX Administration Aspirin 81 mg 05/30/24 09:00 05/30/24 08:25 Aspirin Ec 81 Mg Tablet PO 81 mg DAILY ROX Administration Benzonatate 100 mg 05/28/24 06:32 05/28/24 20:57 Benzonatate 100 Mg Capsule PO 100 mg TID PRN Administration Cough Cholecalciferol 800 unit 05/28/24 09:00 05/30/24 08:23 Cholecalciferol 400 Unit Tablet PO 800 unit DAILY ROX Administration Dexamethasone 6 mg 05/29/24 09:00 05/30/24 08:21 Dexamethasone 4 Mg Tablet PO 6 mg DAILY ROX Administration Enoxaparin Sodium 60 mg 05/28/24 09:00 05/30/24 08:20 Enoxaparin 60 Mg/0.6 Ml Syringe SUBQ 60 mg BID ROX Administration Guaifenesin 600 mg 05/28/24 09:00 05/30/24 08:25 Guaifenesin 600 Mg Tablet PO 600 mg BID ROX Administration Remdesivir 100 mg/ Sodium 100 mls @ 200 mls/hr 05/29/24 11:00 05/30/24 11:16 Chloride IV 06/01/24 11:29 200 mls/hr 1100 ROX Administration Lactobacillus Rhamnosus 1 cap 05/28/24 09:00 05/30/24 08:23 Lactobacillus Rhamnosus Gg Capsule PO 1 cap DAILY ROX Administration Losartan Potassium 100 mg 05/29/24 09:00 05/30/24 08:24 Losartan 50 Mg Tablet PO 100 mg DAILY ROX Administration Magnesium Oxide 400 mg 05/29/24 10:15 05/30/24 08:21 Magnesium Oxide 400 Mg Tablet PO 400 mg DAILYWM ROX Administration Melatonin 3 mg 05/28/24 06:32 Melatonin 3 Mg Tablet PO QPM PRN sleep Metoprolol Succinate 50 mg 05/29/24 09:00 05/30/24 08:21 Metoprolol Succinate 50 Mg Tablet PO 50 mg DAILY ROX Administration Multivitamins/Minerals 1 tab 05/28/24 08:00 05/30/24 08:23 Multivitamin W/Minerals Tablet PO 1 tab DAILYWM ROX Administration Pantoprazole Sodium 40 mg 05/28/24 07:15 05/30/24 06:15 Pantoprazole 40 Mg Tablet PO 40 mg QDAC ROX Administration Saliva Substitute 1 sprays 05/30/24 10:12 Saliva Stimulant [place] 44.3 Ml Bottle PO Q1H PRN Mouth Sore Pain Sodium Chloride 1 gm 05/29/24 08:00 05/30/24 06:15 Sodium Chloride 1 Gm Tablet PO 1 gm TID ROX Administration Zinc Sulfate 220 mg 05/28/24 09:00 05/30/24 08:23 Zinc Sulfate 220 Mg Capsule PO 220 mg DAILY ROX Administration Objective Vital Signs/Intake & Output Reviewed Vital Signs: Yes Vital Signs: Vital Signs x48h Temp Pulse Resp BP Pulse Ox O2 Flow Rate 05/30/24 08:18 36.7 C 103 H 18 163/94 H 94 2 05/30/24 07:30 2 Intake & Output: Intake & Output 05/28/24 05/29/24 05/30/24 05/31/24 05:59 05:59 05:59 05:59 Intake Total 960 / 960 1670 / 1670 240 / 240 Output Total 1550 / 1550 1200 / 1200 300 / 300 Balance -590 / -590 470 / 470 -60 / -60 Weight (kg) 66.8 kg 63.5 kg Objective General Appearance: positive No acute distress and Alert Eyes Bilateral: positive Normal inspection, PERRL and EOMI ENT: positive ENT inspection nml Neck: positive Nml inspection Respiratory: positive Chest non-tender Cardiovascular: positive Tachycardia Abdomen: positive Non-tender Back: positive Nml inspection Skin: positive Color nml Extremities: positive Non-tender Neurologic/Psychiatric: positive Oriented x3 Lab Results 05/30/24 05:30 05/30/24 05:30 Other Labs: Lab Results x24hrs 05/30/24 05/29/24 05/29/24 Range/Units 05:30 20:20 14:00 WBC 9.5 (4.8-10.8) x10^3/uL RBC 3.40 L (4.20-5.40) 10^6/uL Hgb 10.6 L (12.0-16.0) g/dL Hct 32.2 L (37.0-47.0) % MCV 94.7 (81.0-99.0) fL MCH 31.2 H (27.0-31.0) pg MCHC 32.9 (32.0-36.0) g/dL RDW 14.2 (12.0-15.0) % Plt Count 153 (130-450) 10^3/uL MPV 8.9 (7.9-10.8) fL Neut # (Auto) 7.8 H (1.5-6.6) 10^3/uL Lymph # (Auto) 0.9 L (1.5-3.5) 10^3/uL [place] # (Auto) 0.8 (0.0-1.0) 10^3/uL Eos # (Auto) 0.0 (0.0-0.7) 10^3/uL Baso # (Auto) 0.0 (0.0-0.1) 10^3/uL Absolute Nucleated RBC 0.00 x10^3/uL Nucleated RBC % 0.0 /100WBC Bld Gas Analysis Time 2031 Sample Site RIGHT RADIAL ABG pH 7.43 (7.35-7.45) ABG pCO2 40 (34-45) mmHg ABG pO2 140 H (80-100) mmHg ABG HCO3 25.9 (22.0-26.0) mmol/L ABG Total CO2 27.1 (21.0-29.0) MMOL/L ABG O2 Saturation 99 H (94-98) % ABG Base Excess 1.5 (-2.0-3.0) mmol/L Reinaldo Test POSITIVE O2 Delivery Device NASAL CANNULA O2 Liters/Min 4.00 LPM FiO2 36.00 Sodium 127 L (135-145) mmol/L Potassium 3.4 L (3.5-4.5) mmol/L Chloride 92 L (101-111) mmol/L Carbon Dioxide 31 (21-32) mmol/L Anion Gap 4.0 L (6-13) BUN 18 (6-20) mg/dL Creatinine 0.7 (0.6-1.3) mg/dL Estimated GFR (MDRD) 79 L (>89) Glucose 182 H (74-104) mg/dL Calcium 9.2 (8.5-10.3) mg/dL Troponin I High Sens 23.5 H* (2.3-14.8) ng/L ABX Reporting Has patient been on IV antibiotics over the past 48 hours?: No Assessment/Plan Problem List (1) Acute on chronic respiratory failure with hypoxemia: Impression: Continue oxygen therapy. Currently on 2 L of oxygen. Reevaluate oxygen needs and respiratory status as symptoms improve (2) Atrial fibrillation with RVR: Impression: Continue rate control Metoprolol 50 mg Discussed with patient's granddaughter and she states that she does not have a history of A-fib therefore this is more likely than not new onset atrial fibrillation (3) COVID-19: Impression: Continue remdesivir 100mg and dexamethasone 6mg (4) Chronic hyponatremia: Impression: Maintain fluid restriction due to chronic hyponatremia and the patient states she does have a dry mouth. Will place on a moist and minced diet and ensure meals are prepared as chopped food per 's request. (5) Counseling regarding end of life decision making: Impression: Discussed end-of-life preferences with the patient and the patient's granddaughter today as the patient has expressed wishes for no aggressive intervention but states that her is her current medical decision-maker and has conflicting views consider involving a care team or ethics consult to facilitate discussions between patient and her and family regarding end-of-life care. Documented by User: VERONICA Tucker 05/30/24 14:24 Objective Lab Results 05/30/24 05:30 05/30/24 05:30 Assessment/Plan Problem List (1) Acute on chronic respiratory failure with hypoxemia: (2) Atrial fibrillation with RVR: (3) COVID-19: (4) Chronic hyponatremia: (5) Counseling regarding end of life decision making:
[2024-05-30] MEDS: SALIVA STIMULANT SPRAY 44.3 ML BOTTLE PO PRN (12:47)
[2024-05-30 17:49] LABS: BILIRUBIN,URINE NEGATIVE (NEGATIVE); GLUCOSE, URINE (UA) 100 mg/dL (NEGATIVE); KETONES,URINE (UA) NEGATIVE (NEGATIVE); LEUKOCYTE ESTERASE, URINE NEGATIVE (NEGATIVE); NITRITE,URINE NEGATIVE (NEGATIVE); OCCULT BLOOD,URINE LARGE (NEGATIVE); PH,URINE 6.5 PH (5.0-7.5); PROTEIN,URINE NEGATIVE (NEGATIVE); UROBILINOGEN,URINE 0.2 (NORMAL) E.U./dL (NORMAL)
[2024-05-30 17:53] LABS: CLARITY,URINE CLEAR (CLEAR)
[2024-05-30 18:16] LABS: BACTERIA,URINE Few /HPF (None Seen); SQUAMOUS EPITHELIAL CELL,UR RARE Squamous (<= Few); WBC,URINE 0-3 /HPF (0-5)
[2024-05-31 05:55] LABS: BASOPHILS % (AUTO) 0.2 %; EOSINOPHILS # (AUTO) 0.1 10^3/uL (0.0-0.7); EOSINOPHILS % (AUTO) 0.5 %; HCT - HEMATOCRIT 34.6 % (37.0-47.0); HGB - HEMOGLOBIN 11.1 g/dL (12.0-16.0); LYMPHOCYTES # (AUTO) 1.4 10^3/uL (1.5-3.5); LYMPHOCYTES % (AUTO) 11.3 %; MEAN CORPUSCULAR HEMOGLOBIN 30.6 pg (27.0-31.0); MEAN CORPUSCULAR HGB CONC 32.1 g/dL (32.0-36.0); MEAN CORPUSCULAR VOLUME 95.3 fL (81.0-99.0); MEAN PLATELET VOLUME 9.6 fL (7.9-10.8); MONOCYTES # (AUTO) 1.1 10^3/uL (0.0-1.0); MONOCYTES % (AUTO) 8.8 %; NEUTROPHILS % (AUTO) 78.7 %; NRBC ABSOLUTE COUNT (AUTO) 0.02 x10^3/uL; NUCLEATED RED BLOOD CELLS AUTO 0.2 /100WBC; PLT - PLATELET COUNT 164 10^3/uL (130-450); RED BLOOD COUNT 3.63 10^6/uL (4.20-5.40); WHITE BLOOD COUNT 12.8 x10^3/uL (4.8-10.8)
[2024-05-31 06:13] LABS: CALCIUM 9.3 mg/dL (8.5-10.3); CREATININE 0.6 mg/dL (0.6-1.3); POTASSIUM 3.4 mmol/L (3.5-4.5)
[2024-05-31 10:50] LABS: INR 1.3 (0.8-1.2); PT - PROTHROMBIN TIME 14.4 secs (9.9-12.6)
[2024-05-31 11:01] LABS: ALBUMIN 3.3 g/dL (3.2-5.5); BILIRUBIN,DIRECT 0.22 mg/dL (0.03-0.18); BILIRUBIN,TOTAL 0.6 mg/dL (0.2-1.0); MAGNESIUM 1.6 mg/dL (1.7-2.3); TOTAL PROTEIN 7.5 g/dL (6.4-8.9)
--- NOTE | 2024-05-31 11:13 | XRAY Report ---
PROCEDURE: XR Chest 1V INDICATIONS: increasing sputum TECHNIQUE: One view of the chest was acquired. COMPARISON: 05/28/2024 FINDINGS: Surgical changes and devices: None. Low lung volumes accentuate pulmonary interstitium and heart size. Heart size enlarged, there is moderate vascular congestion with patchy bilateral pulmonary infiltrate s it. The left basilar atelectasis and or infiltrate. Generalized decreased osseous mineralization present. Bilateral glenohumeral arthritic changes. IMPRESSION: Cardiomegaly, moderate vascular congestion, patchy bilateral pulmonary infiltrates reflec ting pulmonary edema versus infection. No change from prior exam. Reviewed by: Fernando Rivas MD on 05/31/2024 10:12 AM DANE Approved by: Fernando Rivas MD on 05/31/2024 10:12 AM AKALINA Station ID: [id number]
--- NOTE | 2024-05-31 16:48 | PROVIDER PROGRESS NOTE ---
Subjective Prog Note Date Prog Note Date: 05/31/24 Prog Note Time: 08:00 Subjective Pt reports feeling: Improved Subjective: She continues to feel better, but very weak. She has been coughing up sputum. she has been getting mucinex to help thin secretions. cough has interrupted her sleep. Current Medications Current Medications Current Medications: Current Medications Generic Name Dose Route Start Last Admin Trade Name Freq PRN Reason Stop Dose Admin Acetaminophen 650 mg 05/28/24 06:41 05/31/24 08:30 Acetaminophen 325 Mg Tablet PO 650 mg Q6H PRN Administration pain, fever Albuterol 2 puffs 05/28/24 06:41 Albuterol 1 Puff INH Q2H PRN sob Ascorbic Acid 500 mg 05/28/24 09:00 05/31/24 08:14 Ascorbic Acid 500 Mg Tablet PO 500 mg DAILY ROX Administration Aspirin 81 mg 05/30/24 09:00 05/31/24 08:17 Aspirin Ec 81 Mg Tablet PO 81 mg DAILY ROX Administration Benzonatate 100 mg 05/28/24 06:32 05/28/24 20:57 Benzonatate 100 Mg Capsule PO 100 mg TID PRN Administration Cough Cholecalciferol 800 unit 05/28/24 09:00 05/31/24 08:14 Cholecalciferol 400 Unit Tablet PO 800 unit DAILY ROX Administration Dexamethasone 6 mg 05/29/24 09:00 05/31/24 08:15 Dexamethasone 4 Mg Tablet PO 6 mg DAILY ROX Administration Enoxaparin Sodium 60 mg 05/28/24 09:00 05/31/24 08:17 Enoxaparin 60 Mg/0.6 Ml Syringe SUBQ 60 mg BID ROX Administration Guaifenesin 600 mg 05/28/24 09:00 05/31/24 08:17 Guaifenesin 600 Mg Tablet PO 600 mg BID ROX Administration Remdesivir 100 mg/ Sodium 100 mls @ 200 mls/hr 05/29/24 11:00 05/30/24 12:59 Chloride IV 06/01/24 11:29 Infused 1100 ROX Infusion Lactobacillus Rhamnosus 1 cap 05/28/24 09:00 05/31/24 08:17 Lactobacillus Rhamnosus Gg Capsule PO 1 cap DAILY ROX Administration Losartan Potassium 100 mg 05/29/24 09:00 05/31/24 08:15 Losartan 50 Mg Tablet PO 100 mg DAILY ROX Administration Magnesium Oxide 400 mg 05/29/24 10:15 05/31/24 08:17 Magnesium Oxide 400 Mg Tablet PO 400 mg DAILYWM ROX Administration Melatonin 3 mg 05/28/24 06:32 Melatonin 3 Mg Tablet PO QPM PRN sleep Metoprolol Succinate 50 mg 05/29/24 09:00 05/31/24 08:17 Metoprolol Succinate 50 Mg Tablet PO 50 mg DAILY ROX Administration Multivitamins/Minerals 1 tab 05/28/24 08:00 05/31/24 08:14 Multivitamin W/Minerals Tablet PO 1 tab DAILYWM ROX Administration Pantoprazole Sodium 40 mg 05/28/24 07:15 05/31/24 06:33 Pantoprazole 40 Mg Tablet PO 40 mg QDAC ROX Administration Saliva Substitute 1 sprays 05/30/24 10:12 05/31/24 08:15 Saliva Stimulant [place] 44.3 Ml Bottle PO 1 sprays Q1H PRN Administration Mouth Sore Pain Sodium Chloride 1 gm 05/29/24 08:00 05/31/24 06:33 Sodium Chloride 1 Gm Tablet PO 1 gm TID ROX Administration Zinc Sulfate 220 mg 05/28/24 09:00 05/31/24 08:14 Zinc Sulfate 220 Mg Capsule PO 220 mg DAILY ROX Administration Objective Vital Signs/Intake & Output Reviewed Vital Signs: Yes Vital Signs: Vital Signs x48h Temp Pulse Pulse Resp BP Pulse Ox O2 Flow Rate 05/31/24 08:23 36.3 C L 108 H 20 169/111 H 95 3 05/31/24 05:00 3 05/31/24 04:16 36.6 C 98 H 23 159/95 H 95 3 Intake & Output: Intake & Output 05/29/24 05/30/24 05/31/24 06/01/24 05:59 05:59 05:59 05:59 Intake Total 960 / 960 1670 / 1670 680 / 680 Output Total 1550 / 1550 1200 / 1200 1400 / 1400 Balance -590 / -590 470 / 470 -720 / -720 Weight (kg) 63.5 kg Objective General Appearance: positive No acute distress and Alert Eyes Bilateral: positive Normal inspection, PERRL and EOMI ENT: positive No signs of dehydration and Oral lesions (2cm hemorrhagic lesion on the buccal mucosal on the left side of the patient's mouth. ) Neck: positive Nml inspection Respiratory: positive Chest non-tender, No respiratory distress and Breath sounds nml; negative Wheezes Cardiovascular: positive Tachycardia Abdomen: positive Non-tender Back: positive Nml inspection Skin: positive Color nml Extremities: positive Non-tender Neurologic/Psychiatric: positive Oriented x3 Lab Results 05/31/24 05:25 05/31/24 05:25 Other Labs: Lab Results x24hrs 05/31/24 05/30/24 Range/Units 05:25 17:15 WBC 12.8 H (4.8-10.8) x10^3/uL RBC 3.63 L (4.20-5.40) 10^6/uL Hgb 11.1 L (12.0-16.0) g/dL Hct 34.6 L (37.0-47.0) % MCV 95.3 (81.0-99.0) fL MCH 30.6 (27.0-31.0) pg MCHC 32.1 (32.0-36.0) g/dL RDW 14.0 (12.0-15.0) % Plt Count 164 (130-450) 10^3/uL MPV 9.6 (7.9-10.8) fL Neut # (Auto) 10.0 H (1.5-6.6) 10^3/uL Lymph # (Auto) 1.4 L (1.5-3.5) 10^3/uL [place] # (Auto) 1.1 H (0.0-1.0) 10^3/uL Eos # (Auto) 0.1 (0.0-0.7) 10^3/uL Baso # (Auto) 0.0 (0.0-0.1) 10^3/uL Absolute Nucleated RBC 0.02 x10^3/uL Nucleated RBC % 0.2 /100WBC Sodium 132 L (135-145) mmol/L Potassium 3.4 L (3.5-4.5) mmol/L Chloride 97 L (101-111) mmol/L Carbon Dioxide 31 (21-32) mmol/L Anion Gap 4.0 L (6-13) BUN 16 (6-20) mg/dL Creatinine 0.6 (0.6-1.3) mg/dL Estimated GFR (MDRD) 95 (>89) Glucose 167 H (74-104) mg/dL Calcium 9.3 (8.5-10.3) mg/dL Urine Color YELLOW Urine Clarity CLEAR (CLEAR) Urine pH 6.5 (5.0-7.5) PH Ur Specific [place] 1.010 (1.002-1.030) Urine Protein NEGATIVE (NEGATIVE) mg/dL Urine Glucose (UA) 100 H (NEGATIVE) mg/dL Urine Ketones NEGATIVE (NEGATIVE) mg/dL Urine Occult Blood LARGE H (NEGATIVE) Urine Nitrite NEGATIVE (NEGATIVE) Urine Bilirubin NEGATIVE (NEGATIVE) Urine Urobilinogen 0.2 (NORMAL) (NORMAL) E.U./dL Ur Leukocyte Esterase NEGATIVE (NEGATIVE) Urine RBC 11-25 H (0-5) /HPF Urine WBC 0-3 (0-5) /HPF Ur Squamous Epith Cells RARE Squamous (<= Few) Urine Bacteria Few (None Seen) /HPF Urine Culture Comments NOT INDICATED ABX Reporting Has patient been on IV antibiotics over the past 48 hours?: No Assessment/Plan Problem List (1) Acute on chronic respiratory failure with hypoxemia: Impression: Continue oxygen therapy. Currently on 2 L of oxygen. Reevaluate oxygen needs and respiratory status as symptoms improve. i repeated Chest x-ray this morning so it shows no change from previous exam. She has cardiomegaly, moderate vascular congestion and patchy bilateral pulmonary infiltrates. I believe this is consistent with her COVID infection. Echocardiogram was completed. This shows a normal left ventricular size with systolic function at lower limits of normal, left ventricular ejection fraction is 50 to 55% there is mild right ventricular enlargement with normal right ventricular systolic function. There is mild mitral regurgitation there is moderate tricuspid regurgitation there are moderately abnormal right heart pressures with a right ventricular systolic pressure of 57 mmHg. This is consistent with her interstitial lung disease. I interpret these findings as no heart failure that is contributing to her respiratory failure. She was seen yesterday by PT and experienced desaturation with upright seated posture and low activity endurance. She is unsafe for discharge to home and far below her reported baseline. [facility] facility for rehab is recommended. (2) Atrial fibrillation with RVR: Impression: I have increased her metoprolol to 100 mg daily. Her heart rate continues to be in the low 100s to 110s. I will add diltiazem tomorrow if her heart rate continues to be elevated. Her blood pressures are consistently hypertensive. Discussed with patient's granddaughter and she states that she does not have a history of A-fib therefore this is more likely than not new onset atrial fibrillation Selected Entries 05/31/24 00:33 05/31/24 04:16 05/31/24 08:23 Blood Pressure [Left Brachial artery] 160/99 H Blood Pressure [Right Brachial artery] 159/95 H 169/111 H 05/31/24 13:00 05/31/24 15:53 Blood Pressure [Left Brachial artery] Blood Pressure [Right Brachial artery] 154/97 H 173/120 H (3) COVID-19: Impression: Continue remdesivir 100mg and dexamethasone 6mg Please see impression for hypoxic respiratory failure above. This is COVID-19 infection in the setting of interstitial lung disease. She is day 3 of 5 remdesivir and day 3 of 6 dexamethasone. I would consider extending her course of dexamethasone to 10 days dependent on her improvement and response to treatment. (4) Urinary retention: Impression: Acute urinary retention. She was treated in the outpatient environment for several days prior to admission for a urinary tract infection with Macrobid. We repeated the UA yesterday and there was no evidence of infection. We did however obtain of 1000 cc of urine on straight cath. She has been incontinent of urine at home. I think she has longstanding urinary retention and she is experiencing overflow incontinence at home. We have placed a Alvarado. I will leave this in place for 1 to 2 days and then attempt Alvarado removal with careful attention to bladder scanning. (5) Oral lesion: Impression: New finding of hemorrhagic oral lesion on exam today. Her coagulation studies are normal FLAIR LFTs are normal. She is having some bruising from blood draws etc. while here in the hospital. I am unsure at this point of significance of this lesion we will continue to observe. She has not had any melena. She has not had any bright red blood with her stools. She is not bleeding from her gums. She is not experiencing significant drops in her hemoglobin. (6) Chronic hyponatremia: Impression: Maintain fluid restriction due to chronic hyponatremia and the patient states she does have a dry mouth. Will place on a moist and minced diet and ensure meals are prepared as chopped food per 's request. Her hyponatremia has improved with addition of salt to her diet and sodium tablets as well as free water restriction.Laboratory Tests 05/29/24 05/30/2405/31/24 04:24 05:30 05:25 Sodium 126 L 127 L 132 L (7) Counseling regarding end of life decision making: Impression: Discussed end-of-life preferences with the patient and the patient's granddaughter as the patient has expressed wishes for no aggressive intervention but states that her is her current medical decision-maker and has conflicting views. I briefly discussed this patient with palliative care team today. Unfortunately they are understaffed and unable to see the patient as an inpatient. With her diagnosis of interstitial lung disease she certainly qualifies for a palliative care consult. We may defer this to the outpatient environment depending on availability of services. In any event we will definitely recommend this to the patient's primary care provider upon discharge or complete a palliative care consultation prior to discharge. The patient's has an active COVID infection and therefore is unable he present with her in the hospital at this time. It would certainly be helpful to have him present at the time of palliative care consultation so that he may understand both her wishes and the projected course of her disease. i have spent 40 minutes today in evaluating this patient, reviewing studies, interpreting data and ordering further labs and medications.
[2024-06-01 06:26] LABS: BASOPHILS % (AUTO) 0.1 %; HCT - HEMATOCRIT 35.8 % (37.0-47.0); HGB - HEMOGLOBIN 11.2 g/dL (12.0-16.0); LYMPHOCYTES # (AUTO) 1.2 10^3/uL (1.5-3.5); LYMPHOCYTES % (AUTO) 11.3 %; MEAN CORPUSCULAR HEMOGLOBIN 29.9 pg (27.0-31.0); MEAN CORPUSCULAR HGB CONC 31.3 g/dL (32.0-36.0); MEAN CORPUSCULAR VOLUME 95.7 fL (81.0-99.0); MEAN PLATELET VOLUME 10.1 fL (7.9-10.8); MONOCYTES # (AUTO) 0.9 10^3/uL (0.0-1.0); MONOCYTES % (AUTO) 8.2 %; NEUTROPHILS # (AUTO) 8.5 10^3/uL (1.5-6.6); NEUTROPHILS % (AUTO) 79.9 %; PLT - PLATELET COUNT 172 10^3/uL (130-450); RED BLOOD COUNT 3.74 10^6/uL (4.20-5.40); RED CELL DISTRIBUTION WIDTH 13.8 % (12.0-15.0); WHITE BLOOD COUNT 10.6 x10^3/uL (4.8-10.8)
[2024-06-01 06:43] LABS: CALCIUM 9.2 mg/dL (8.5-10.3); CREATININE 0.6 mg/dL (0.6-1.3); POTASSIUM 3.6 mmol/L (3.5-4.5)
--- NOTE | 2024-06-01 08:39 | PROVIDER PROGRESS NOTE ---
Subjective Prog Note Date Prog Note Date: 06/01/24 Prog Note Time: 08:30 Subjective Pt reports feeling: No change Subjective: She is eating breakfast. she continues to be on baseline level of oxygen. Her O2 needs have not increased. She has been seen by PT and OT Current Medications Current Medications Current Medications: Current Medications Generic Name Dose Route Start Last Admin Trade Name Freq PRN Reason Stop Dose Admin Acetaminophen 650 mg 05/28/24 06:41 05/31/24 20:50 Acetaminophen 325 Mg Tablet PO 650 mg Q6H PRN Administration pain, fever Albuterol 2 puffs 05/28/24 06:41 Albuterol 1 Puff INH Q2H PRN sob Ascorbic Acid 500 mg 05/28/24 09:00 05/31/24 08:14 Ascorbic Acid 500 Mg Tablet PO 500 mg DAILY ROX Administration Aspirin 81 mg 05/30/24 09:00 05/31/24 08:17 Aspirin Ec 81 Mg Tablet PO 81 mg DAILY ROX Administration Benzonatate 100 mg 05/28/24 06:32 05/28/24 20:57 Benzonatate 100 Mg Capsule PO 100 mg TID PRN Administration Cough Cholecalciferol 800 unit 05/28/24 09:00 05/31/24 08:14 Cholecalciferol 400 Unit Tablet PO 800 unit DAILY ROX Administration Dexamethasone 6 mg 05/29/24 09:00 05/31/24 08:15 Dexamethasone 4 Mg Tablet PO 6 mg DAILY ROX Administration Enoxaparin Sodium 60 mg 05/28/24 09:00 05/31/24 20:51 Enoxaparin 60 Mg/0.6 Ml Syringe SUBQ 60 mg BID ROX Administration Guaifenesin 600 mg 05/28/24 09:00 05/31/24 20:51 Guaifenesin 600 Mg Tablet PO 600 mg BID ROX Administration Remdesivir 100 mg/ Sodium 100 mls @ 200 mls/hr 05/29/24 11:00 05/31/24 12:18 Chloride IV 06/01/24 11:29 Infused 1100 ROX Infusion Lactobacillus Rhamnosus 1 cap 05/28/24 09:00 05/31/24 08:17 Lactobacillus Rhamnosus Gg Capsule PO 1 cap DAILY ROX Administration Losartan Potassium 100 mg 05/29/24 09:00 05/31/24 08:15 Losartan 50 Mg Tablet PO 100 mg DAILY ROX Administration Magnesium Oxide 400 mg 05/29/24 10:15 05/31/24 08:17 Magnesium Oxide 400 Mg Tablet PO 400 mg DAILYWM ROX Administration Melatonin 3 mg 05/28/24 06:32 Melatonin 3 Mg Tablet PO QPM PRN sleep Metoprolol Succinate 100 mg 06/01/24 09:04 Metoprolol Succinate 50 Mg Tablet PO DAILY ROX Multivitamins/Minerals 1 tab 05/28/24 08:00 05/31/24 08:14 Multivitamin W/Minerals Tablet PO 1 tab DAILYWM ROX Administration Pantoprazole Sodium 40 mg 05/28/24 07:15 06/01/24 05:41 Pantoprazole 40 Mg Tablet PO 40 mg QDAC ROX Administration Saliva Substitute 1 sprays 05/30/24 10:12 05/31/24 08:15 Saliva Stimulant [place] 44.3 Ml Bottle PO 1 sprays Q1H PRN Administration Mouth Sore Pain Sodium Chloride 1 gm 05/29/24 08:00 06/01/24 05:41 Sodium Chloride 1 Gm Tablet PO 1 gm TID ROX Administration Zinc Sulfate 220 mg 05/28/24 09:00 05/31/24 08:14 Zinc Sulfate 220 Mg Capsule PO 220 mg DAILY ROX Administration Objective Vital Signs/Intake & Output Reviewed Vital Signs: Yes Vital Signs: Vital Signs x48h Temp Pulse Resp BP Pulse Ox O2 Flow Rate 06/01/24 05:39 36.3 C L 94 H 26 H 169/109 H 96 2 Intake & Output: Intake & Output 05/30/24 05/31/24 06/01/24 06/02/24 05:59 05:59 05:59 05:59 Intake Total 1670 / 1670 680 / 680 1015 / 1015 Output Total 1200 / 1200 1400 / 1400 4050 / 4050 Balance 470 / 470 -720 / -720 -3035 / -3035 Objective General Appearance: positive No acute distress and Alert Eyes Bilateral: positive Normal inspection, PERRL and EOMI ENT: positive No signs of dehydration and Oral lesions (2cm hemorrhagic lesion on the buccal mucosal on the left side of the patient's mouth- darker than yesterday, more flat as well) Neck: positive Nml inspection Respiratory: positive Chest non-tender, No respiratory distress and Breath sounds nml; negative Wheezes Cardiovascular: positive Tachycardia Abdomen: positive Non-tender Back: positive Nml inspection Skin: positive Color nml Extremities: positive Non-tender Neurologic/Psychiatric: positive Oriented x3 Lab Results 06/01/24 06:02 06/01/24 06:02 Other Labs: Lab Results x24hrs 06/01/24 05/31/24 Range/Units 06:02 10:35 WBC 10.6 (4.8-10.8) x10^3/uL RBC 3.74 L (4.20-5.40) 10^6/uL Hgb 11.2 L (12.0-16.0) g/dL Hct 35.8 L (37.0-47.0) % MCV 95.7 (81.0-99.0) fL MCH 29.9 (27.0-31.0) pg MCHC 31.3 L (32.0-36.0) g/dL RDW 13.8 (12.0-15.0) % Plt Count 172 (130-450) 10^3/uL MPV 10.1 (7.9-10.8) fL Neut # (Auto) 8.5 H (1.5-6.6) 10^3/uL Lymph # (Auto) 1.2 L (1.5-3.5) 10^3/uL [place] # (Auto) 0.9 (0.0-1.0) 10^3/uL Eos # (Auto) 0.0 (0.0-0.7) 10^3/uL Baso # (Auto) 0.0 (0.0-0.1) 10^3/uL Absolute Nucleated RBC 0.00 x10^3/uL Nucleated RBC % 0.0 /100WBC PT 14.4 H (9.9-12.6) secs INR 1.3 H (0.8-1.2) Sodium 132 L (135-145) mmol/L Potassium 3.6 (3.5-4.5) mmol/L Chloride 97 L (101-111) mmol/L Carbon Dioxide 31 (21-32) mmol/L Anion Gap 4.0 L (6-13) BUN 18 (6-20) mg/dL Creatinine 0.6 (0.6-1.3) mg/dL Estimated GFR (MDRD) 95 (>89) Glucose 255 H (74-104) mg/dL Calcium 9.2 (8.5-10.3) mg/dL Magnesium 1.6 L (1.7-2.3) mg/dL Total Bilirubin 0.6 (0.2-1.0) mg/dL Direct Bilirubin 0.22 H (0.03-0.18) mg/dL AST 21 (10-42) IU/L ALT 22 (10-60) IU/L Alkaline Phosphatase 36 L (42-121) IU/L Total Protein 7.5 (6.4-8.9) g/dL Albumin 3.3 (3.2-5.5) g/dL Globulin 4.2 (2.1-4.2) g/dL ABX Reporting Has patient been on IV antibiotics over the past 48 hours?: No Assessment/Plan Problem List (1) Acute on chronic respiratory failure with hypoxemia: Impression: Continue oxygen therapy. Currently on 2 L of oxygen. Reevaluate oxygen needs and respiratory status as symptoms improve. Chest XR shows she has cardiomegaly, moderate vascular congestion and patchy bilateral pulmonary infiltrates. I believe this is consistent with her COVID infection. Echocardiogram was completed. This shows a normal left ventricular size with systolic function at lower limits of normal, left ventricular ejection fraction is 50 to 55% there is mild right ventricular enlargement with normal right ventricular systolic function. There is mild mitral regurgitation there is moderate tricuspid regurgitation there are moderately abnormal right heart pressures with a right ventricular systolic pressure of 57 mmHg. This is consistent with her interstitial lung disease. I interpret these findings as no heart failure that is contributing to her respiratory failure. PT and OT evaluations revealed this patient is far below her baseline with decreased activity tolerance. She is unsafe for discharge to home. [facility] With her COVID infection she will not be clear for placement in SNF until after 06/06. Over the weekend with limited rehab services I have asked that nursing get the patient to the chair at least 2 3 times daily for meals. (2) Atrial fibrillation with RVR: Impression: I have increased her metoprolol to 100 mg daily. Heart rate continues to be in the low 100s. I will add diltiazem today. Immediate release 30 mg 4 times daily. Her blood pressure has been consistently elevated in the 150s and 160s. I will add diltiazem tomorrow if her heart rate continues to be elevated. Her blood pressures are consistently elevated. Selected Entries 06/01/24 05:39 06/01/24 08:42 06/01/24 09:00 Pulse Rate [Brachial] 100 H 107 H Pulse Rate [Monitoring electrodes] 94 H Blood Pressure [Right Brachial artery] 169/109 H 166/99 H 164/108 H 06/01/24 10:26 06/01/24 12:21 Pulse Rate [Brachial] 99 H 103 H Pulse Rate [Monitoring electrodes] Blood Pressure [Right Brachial artery] 161/104 H 160/112 H (3) COVID-19: Impression: Continue remdesivir 100mg and dexamethasone 6mg Please see impression for hypoxic respiratory failure above. This is COVID-19 infection in the setting of interstitial lung disease. She is day 4 of 5 remdesivir and day 4 of 6 dexamethasone. I would consider extending her course of dexamethasone to 10 days dependent on her improvement and response to treatment. (4) Urinary retention: Impression: Acute urinary retention. She was treated in the outpatient environment for several days prior to admission for a urinary tract infection with Macrobid. We repeated the UA and there was no evidence of infection. We did however obtain of 1000 cc of urine on straight cath. She has been incontinent of urine at home. I think she has longstanding urinary retention and she is experiencing overflow incontinence at home. We have placed a Hernández. I will remove the hernández tomorrow AM. . (5) Oral lesion: Impression: New finding of hemorrhagic oral lesion on HD #4. Her coagulation studies are normal; LFTs are normal. She is having some bruising from blood draws etc. while here in the hospital. I am unsure at this point of significance of this lesion we will continue to observe. Today the lesion looks smaller, and darker, as if it is resolving, and I do not see any new lesions. (6) Chronic hyponatremia: Impression: Maintain fluid restriction due to chronic hyponatremia and the patient states she does have a dry mouth. Will place on a moist and minced diet and ensure meals are prepared as chopped food per 's request. Her hyponatremia has improved with addition of salt to her diet and sodium tablets as well as free water restriction.Laboratory Tests 05/29/24 05/30/24 05/31/24 04:24 05:30 05:25 Sodium 126 L 127 L 132 L (7) Counseling regarding end of life decision making: Impression: Discussed end-of-life preferences with the patient and the patient's granddaughter as the patient has expressed wishes for no aggressive intervention but states that her is her current medical decision-maker and has conflicting views. I briefly discussed this patient with palliative care team today. Unfortunately they are understaffed and unable to see the patient as an inpatient. With her diagnosis of interstitial lung disease she certainly qualifies for a palliative care consult. We may defer this to the outpatient environment depending on availability of services. In any event we will definitely recommend this to the patient's primary care provider upon discharge or complete a palliative care consultation prior to discharge. The patient's has an active COVID infection and therefore is unable he present with her in the hospital at this time. It would certainly be helpful to have him present at the time of palliative care consultation so that he may understand both her wishes and the projected course of her disease. i have spent 40 minutes today in evaluating this patient, reviewing studies, interpreting data and ordering further labs and medications. (8) Pulmonary fibrosis: (9) Diabetes mellitus: Impression: Hgb A1C at admission. Patient
[2024-06-01] MEDS: METOPROLOL SUCCINATE 50 MG TABLET PO SCH (08:43)
[2024-06-01] MEDS ORDERED: SODIUM CHLORIDE 0.9% 100ML 100 ML IV ONE ×2 (10:21→11:31)
[2024-06-01] MEDS: INSULIN LISPRO 300 UNIT/3 ML PEN SUBQ SCH ×2 (11:39→21:38)
[2024-06-01] MEDS: diltiaZEM 30 MG TABLET PO SCH (17:08)
[2024-06-02 05:30] LABS: BASOPHILS % (AUTO) 0.2 %; HCT - HEMATOCRIT 34.8 % (37.0-47.0); HGB - HEMOGLOBIN 10.9 g/dL (12.0-16.0); LYMPHOCYTES # (AUTO) 1.1 10^3/uL (1.5-3.5); LYMPHOCYTES % (AUTO) 8.3 %; MEAN CORPUSCULAR HEMOGLOBIN 30.2 pg (27.0-31.0); MEAN CORPUSCULAR HGB CONC 31.3 g/dL (32.0-36.0); MEAN CORPUSCULAR VOLUME 96.4 fL (81.0-99.0); MEAN PLATELET VOLUME 10.4 fL (7.9-10.8); MONOCYTES # (AUTO) 0.6 10^3/uL (0.0-1.0); MONOCYTES % (AUTO) 4.8 %; NEUTROPHILS # (AUTO) 11.2 10^3/uL (1.5-6.6); NEUTROPHILS % (AUTO) 85.9 %; PLT - PLATELET COUNT 175 10^3/uL (130-450); RED BLOOD COUNT 3.61 10^6/uL (4.20-5.40); RED CELL DISTRIBUTION WIDTH 13.9 % (12.0-15.0); WHITE BLOOD COUNT 13.1 x10^3/uL (4.8-10.8)
[2024-06-02 05:46] LABS: CALCIUM 9.1 mg/dL (8.5-10.3); CREATININE 0.5 mg/dL (0.6-1.3); POTASSIUM 3.9 mmol/L (3.5-4.5)
--- NOTE | 2024-06-02 08:55 | PROVIDER PROGRESS NOTE ---
Subjective Prog Note Date Prog Note Date: 06/02/24 Prog Note Time: 08:00 Subjective Pt reports feeling: No change Subjective: I have been at bedside in the AM and PM today. She is doing well. She expresses the desire to get out of bed daily, and she has done so today. She continues to have a productive cough. Otherwise, not many changes. Current Medications Current Medications Current Medications: Current Medications Generic Name Dose Route Start Last Admin Trade Name Freq PRN Reason Stop Dose Admin Acetaminophen 650 mg 05/28/24 06:41 06/02/24 01:18 Acetaminophen 325 Mg Tablet PO 650 mg Q6H PRN Administration pain, fever Albuterol 2 puffs 05/28/24 06:41 Albuterol 1 Puff INH Q2H PRN sob Ascorbic Acid 500 mg 05/28/24 09:00 06/01/24 08:44 Ascorbic Acid 500 Mg Tablet PO 500 mg DAILY ROX Administration Aspirin 81 mg 05/30/24 09:00 06/01/24 08:44 Aspirin Ec 81 Mg Tablet PO 81 mg DAILY ROX Administration Benzonatate 100 mg 05/28/24 06:32 05/28/24 20:57 Benzonatate 100 Mg Capsule PO 100 mg TID PRN Administration Cough Cholecalciferol 800 unit 05/28/24 09:00 06/01/24 08:44 Cholecalciferol 400 Unit Tablet PO 800 unit DAILY ROX Administration Dexamethasone 6 mg 05/29/24 09:00 06/01/24 08:44 Dexamethasone 4 Mg Tablet PO 6 mg DAILY ROX Administration Diltiazem HCl 30 mg 06/01/24 18:00 06/02/24 05:00 Diltiazem 30 Mg Tablet PO 30 mg Q6HR ROX Administration Enoxaparin Sodium 60 mg 05/28/24 09:00 06/01/24 21:38 Enoxaparin 60 Mg/0.6 Ml Syringe SUBQ 60 mg BID ROX Administration Guaifenesin 600 mg 05/28/24 09:00 06/01/24 21:38 Guaifenesin 600 Mg Tablet PO 600 mg BID ROX Administration Insulin Human Lispro 1 - 9 unit 06/01/24 21:00 06/01/24 21:38 Insulin Lispro 300 Unit/3 Ml Pen SUBQ 9 unit 0800,1200,1700,2100 ROX Administration Protocol Lactobacillus Rhamnosus 1 cap 05/28/24 09:00 06/01/24 08:44 Lactobacillus Rhamnosus Gg Capsule PO 1 cap DAILY ROX Administration Losartan Potassium 100 mg 05/29/24 09:00 06/01/24 08:44 Losartan 50 Mg Tablet PO 100 mg DAILY ROX Administration Magnesium Oxide 400 mg 05/29/24 10:15 06/01/24 08:44 Magnesium Oxide 400 Mg Tablet PO 400 mg DAILYWM ROX Administration Melatonin 3 mg 05/28/24 06:32 Melatonin 3 Mg Tablet PO QPM PRN sleep Metoprolol Succinate 100 mg 06/01/24 09:04 06/01/24 08:43 Metoprolol Succinate 50 Mg Tablet PO 100 mg DAILY ROX Administration Multivitamins/Minerals 1 tab 05/28/24 08:00 06/01/24 08:44 Multivitamin W/Minerals Tablet PO 1 tab DAILYWM ROX Administration Pantoprazole Sodium 40 mg 05/28/24 07:15 06/02/24 05:01 Pantoprazole 40 Mg Tablet PO 40 mg QDAC ROX Administration Saliva Substitute 1 sprays 05/30/24 10:12 05/31/24 08:15 Saliva Stimulant [place] 44.3 Ml Bottle PO 1 sprays Q1H PRN Administration Mouth Sore Pain Sodium Chloride 1 gm 05/29/24 08:00 06/02/24 05:01 Sodium Chloride 1 Gm Tablet PO 1 gm TID ROX Administration Zinc Sulfate 220 mg 05/28/24 09:00 06/01/24 08:43 Zinc Sulfate 220 Mg Capsule PO 220 mg DAILY ROX Administration Objective Vital Signs/Intake & Output Reviewed Vital Signs: Yes Vital Signs: Vital Signs x48h Temp Pulse Pulse Pulse Resp BP BP 06/02/24 08:32 36.5 C 84 20 146/83 H 06/02/24 05:00 83 154/106 H 06/02/24 04:56 36.4 C L 81 28 H 154/106 H Pulse Ox O2 Flow Rate 06/02/24 08:32 97 2 06/02/24 05:00 06/02/24 04:56 96 2 Intake & Output: Intake & Output 05/31/24 06/01/24 06/02/24 06/03/24 05:59 05:59 05:59 05:59 Intake Total 680 / 680 1015 / 1015 1420 / 1420 240 / 240 Output Total 1400 / 1400 4050 / 4050 1475 / 1475 Balance -720 / -720 -3035 / -3035 -55 / -55 240 / 240 Objective General Appearance: positive No acute distress and Alert Eyes Bilateral: positive Normal inspection, PERRL and EOMI ENT: positive No signs of dehydration Neck: positive Nml inspection Respiratory: positive Chest non-tender, No respiratory distress and Breath sounds nml; negative Wheezes Cardiovascular: positive Tachycardia Abdomen: positive Non-tender Back: positive Nml inspection Skin: positive Color nml Extremities: positive Non-tender Neurologic/Psychiatric: positive Oriented x3 Lab Results 06/02/24 04:58 06/02/24 04:58 Other Labs: Lab Results x24hrs 06/02/24 06/02/24 06/01/24 Range/Units 08:07 04:58 20:32 WBC 13.1 H (4.8-10.8) x10^3/uL RBC 3.61 L (4.20-5.40) 10^6/uL Hgb 10.9 L (12.0-16.0) g/dL Hct 34.8 L (37.0-47.0) % MCV 96.4 (81.0-99.0) fL MCH 30.2 (27.0-31.0) pg MCHC 31.3 L (32.0-36.0) g/dL RDW 13.9 (12.0-15.0) % Plt Count 175 (130-450) 10^3/uL MPV 10.4 (7.9-10.8) fL Neut # (Auto) 11.2 H (1.5-6.6) 10^3/uL Lymph # (Auto) 1.1 L (1.5-3.5) 10^3/uL [place] # (Auto) 0.6 (0.0-1.0) 10^3/uL Eos # (Auto) 0.0 (0.0-0.7) 10^3/uL Baso # (Auto) 0.0 (0.0-0.1) 10^3/uL Absolute Nucleated RBC 0.00 x10^3/uL Nucleated RBC % 0.0 /100WBC Sodium 132 L (135-145) mmol/L Potassium 3.9 (3.5-4.5) mmol/L Chloride 98 L (101-111) mmol/L Carbon Dioxide 29 (21-32) mmol/L Anion Gap 5.0 L (6-13) BUN 22 H (6-20) mg/dL Creatinine 0.5 L (0.6-1.3) mg/dL Estimated GFR (MDRD) 117 (>89) Glucose 225 H (74-104) mg/dL POC Whole Bld Glucose 193 362 (70-100) mg/dL Calcium 9.1 (8.5-10.3) mg/dL 06/01/24 06/01/24 Range/Units 17:02 11:29 WBC (4.8-10.8) x10^3/uL RBC (4.20-5.40) 10^6/uL Hgb (12.0-16.0) g/dL Hct (37.0-47.0) % MCV (81.0-99.0) fL MCH (27.0-31.0) pg MCHC (32.0-36.0) g/dL RDW (12.0-15.0) % Plt Count (130-450) 10^3/uL MPV (7.9-10.8) fL Neut # (Auto) (1.5-6.6) 10^3/uL Lymph # (Auto) (1.5-3.5) 10^3/uL [place] # (Auto) (0.0-1.0) 10^3/uL Eos # (Auto) (0.0-0.7) 10^3/uL Baso # (Auto) (0.0-0.1) 10^3/uL Absolute Nucleated RBC x10^3/uL Nucleated RBC % /100WBC Sodium (135-145) mmol/L Potassium (3.5-4.5) mmol/L Chloride (101-111) mmol/L Carbon Dioxide (21-32) mmol/L Anion Gap (6-13) BUN (6-20) mg/dL Creatinine (0.6-1.3) mg/dL Estimated GFR (MDRD) (>89) Glucose (74-104) mg/dL POC Whole Bld Glucose 352 303 (70-100) mg/dL Calcium (8.5-10.3) mg/dL ABX Reporting Has patient been on IV antibiotics over the past 48 hours?: No Assessment/Plan Problem List (1) Acute on chronic respiratory failure with hypoxemia: Impression: Continue oxygen therapy. Currently on 2 L of oxygen. I think she will remain on 2 L at rest and 4 L with activity. The acute phase of her respiratory failure is concluding. PT and OT evaluations revealed this patient is far below her baseline with decreased activity tolerance. She is unsafe for discharge to home. [facility] for rehab is recommended. I have reviewed infection control notes and it appears that she will be off isolation for her COVID on 06/03. I have discussed this with social work. And we will be working towards SNF placement. Over the weekend with limited rehab services I have asked that nursing get the patient to the chair at least 2- 3 times daily for meals. She has made it to the chair twice today so far. she is very fatigued by this activity. (2) Atrial fibrillation with RVR: Impression: I have increased her metoprolol to 100 mg daily. Today is the first day her heart rate has been consistently below 100Selected Entries 06/02/24 04:56 06/02/24 05:00 06/02/24 08:32 Pulse Rate 83 Pulse Rate [Brachial] 84 Pulse Rate [Monitoring electrodes] 81 Blood Pressure 154/106 H Blood Pressure [Right Brachial artery] 154/106 H 146/83 H 06/02/24 12:09 06/02/24 12:17 Pulse Rate 98 H Pulse Rate [Brachial] 80 Pulse Rate [Monitoring electrodes] Blood Pressure 156/95 H Blood Pressure [Right Brachial artery] 156/95 H Diltiazem was effective in reducing her heart rate. She remains hypertensive to the 150s. I have converted her diltiazem to extended release. I will plan [facility] diltiazem as well as increased dosing of metoprolol. (3) COVID-19: Impression: Continue remdesivir 100mg and dexamethasone 6mg Please see impression for hypoxic respiratory failure above. This is COVID-19 infection in the setting of interstitial lung disease. She is day 5 of 5 remdesivir and day 5 of 6 dexamethasone. I will stop the dexamethasone tomorrow. Patient and her have stopped getting COVID vaccines. I have discussed this with grandson Toribio and recommend vaccine this fall. (4) Urinary retention: Impression: Acute urinary retention. She was treated in the outpatient environment for several days prior to admission for a urinary tract infection with Macrobid. We repeated the UA and there was no evidence of infection. We did however obtain of 1000 cc of urine on straight cath. She has been incontinent of urine at home. I ordered removal of the Alvarado catheter this morning. We will be removing that soon. Will then do bladder scan and replace Alvarado as needed postvoid residual greater than 300. If we have to replace the Alvarado we will leave it in and have her follow-up with urology as an outpatient. (5) Chronic hyponatremia: Impression: Chronic dry mouth results in her constantly sipping water. She is on a moist and minced diet. Her hyponatremia has improved with addition of salt to her diet and sodium tablets as well as free water restriction. I have removed the fluid restriction in attempt to simulate what she will do in the outpatient environment. I will continue to check sodium daily. (6) Counseling regarding end of life decision making: Impression: Discussed end-of-life preferences with the patient and the patient's granddaughter as the patient has expressed wishes for no aggressive intervention but states that her is her current medical decision-maker and has conflicting views. I briefly discussed this patient with palliative care team. Unfortunately they are understaffed and unable to see the patient as an inpatient. With her diagnosis of interstitial lung disease she certainly qualifies for a palliative care consult. We may defer this to the outpatient environment depending on availability of services. In any event we will definitely recommend this to the patient's primary care provider upon discharge or complete a palliative care consultation prior to discharge. I also mentioned this issue to grandson this afternoon. He will also engage with family regarding this mismatch. He tells me that his grandfather, Beto, is very emotional right now. probably not the best time for such a conversation. The patient's has an active COVID infection and therefore is unable he present with her in the hospital at this time. It would certainly be helpful to have him present at the time of palliative care consultation so that he may understand both her wishes and the projected course of her disease. He is feeling better at home, I am speaking with him on the phone almost daily (7) Pulmonary fibrosis: Impression: baseline lung dysfunction that is progressive in nature. I have discussed this patient with Palliative care, who would like to see her in consultation when they are able . (8) Diabetes mellitus: Impression: Hgb A1C at admission 7.5. Glucose has been high here secondary to decadron. Patient on sulfonylurea as outpatient. She has been intolerant of metformin in the past. I anticipate improvement of her blood sugar when we are able to dc the decadron. At that point, will consider outpatient regimen. I would prefer to avoid sufonylurea given her age. Laboratory Tests 06/01/24 06/02/24 06/02/24 20:32 08:07 11:23 POC Whole Bld Glucose 362 193 367 I have discussed this patient with her and grandson (Toribio) this afternoon. i have spent 38 minutes today in evaluating this patient, reviewing studies, interpreting data and ordering further labs and medications. 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
[2024-06-02] MEDS: INSULIN LISPRO 300 UNIT/3 ML PEN SUBQ SCH (17:16)
[2024-06-02] MEDS: ALBUTEROL 1 PUFF INH PRN (20:55)
--- NOTE | 2024-06-02 23:51 | XRAY Report ---
PROCEDURE: XR Chest 1V INDICATIONS: shortness of breath TECHNIQUE: One view of the chest was acquired. COMPARISON: Chest radiographs 05/31/2024. FINDINGS: Surgical changes and devices: None. Lungs and pleura: Mildly low lung volumes bilaterally. Diffuse interstitial prominence. Possible pat trae airspace opacities. No significant pleural effusion or pneumothorax. Mediastinum: Cardiac silhouette is enlarged as before Bones and chest wall: Chronic degenerative changes are seen in the shoulders. Osteopenia. IMPRESSION: Diffuse interstitial prominence and patchy opacities again suspicious for pulmonary edema or pneumoni a, stable to minimally improved when compared to the exam from 05/31/2024. Reviewed by: Rell Lang MD on 06/02/2024 11:49 PM PDT Approved by: Rell Lang MD on 06/02/2024 11:49 PM PDT Station ID: [id number]
--- NOTE | 2024-06-03 01:08 | PROVIDER PROGRESS NOTE ---
[employer] Note [employer] Note [employer] Note: Hospitalist cross cover note Patient with episode of O2 desat earlier in the evening, required up to 6 L NC, RT was able to resume to 2 L NC with rest. Per RN patient denies cp or sob, but did seem to have more labored work of breathing. Prior CXR reviewed, possible pulm edema, also noted on repeat CXR today - ordered lasix 20 mg x 1 dose, continue to monitor closely.
[2024-06-03] MEDS: FUROSEMIDE 20 MG/2 ML VIAL IVP ONE (02:11)
[2024-06-03 05:46] LABS: BASOPHILS % (AUTO) 0.1 %; HCT - HEMATOCRIT 35.5 % (37.0-47.0); HGB - HEMOGLOBIN 11.2 g/dL (12.0-16.0); LYMPHOCYTES # (AUTO) 0.8 10^3/uL (1.5-3.5); LYMPHOCYTES % (AUTO) 5.3 %; MEAN CORPUSCULAR HGB CONC 31.5 g/dL (32.0-36.0); MEAN CORPUSCULAR VOLUME 95.2 fL (81.0-99.0); MEAN PLATELET VOLUME 10.1 fL (7.9-10.8); MONOCYTES # (AUTO) 0.5 10^3/uL (0.0-1.0); MONOCYTES % (AUTO) 3.2 %; NEUTROPHILS # (AUTO) 14.3 10^3/uL (1.5-6.6); NEUTROPHILS % (AUTO) 90.5 %; PLT - PLATELET COUNT 201 10^3/uL (130-450); RED BLOOD COUNT 3.73 10^6/uL (4.20-5.40); RED CELL DISTRIBUTION WIDTH 13.7 % (12.0-15.0); WHITE BLOOD COUNT 15.9 x10^3/uL (4.8-10.8)
[2024-06-03 06:04] LABS: CALCIUM 9.4 mg/dL (8.5-10.3); CREATININE 0.6 mg/dL (0.6-1.3); POTASSIUM 3.7 mmol/L (3.5-4.5)
[2024-06-03] MEDS: diltiaZEM CD 120 MG CAPSULE PO SCH (08:41)
[2024-06-03] MEDS: SODIUM CHLORIDE FLUSH 0.9% 10 ML SYRINGE IVP SCH (08:44)
--- NOTE | 2024-06-03 11:10 | PROVIDER PROGRESS NOTE ---
Documented by User: Gurwinder Locke 06/03/24 12:14 Subjective Prog Note Date Prog Note Date: 06/03/24 Prog Note Time: 11:03 Subjective Pt reports feeling: Improved Subjective: An 88-year-old female with a medical history significant for pulmonary fibrosis, newly diagnosed atrial fibrillation, chronic hyponatremia, and acute urinary retention was admitted 6 days ago for acute on chronic respiratory failure in the setting of COVID-19. The patient reports experiencing coughing fits with krishna brown sputum and has accumulated a bag of tissues from the previous day. She has an increased appetite and hard a big breakfast this morning. Early this morning, around 01:00, she experienced an episode of hypoxia, with oxygen saturation dropping into the 70s, though this was not documented at the time. Last night, she was placed on 6 L of oxygen and started on Lasix 20 mg once daily. She is now on 2 L of oxygen. A recent chest X-ray indicates possible pulmonary edema versus pneumonia stable to minimally improved when compared to the exam from 05/31/2024. An echocardiogram shows a left ventricular ejection fraction (LVEF) of 50-55%. WBC is 15.9 likely due to steroids. POC glucose decreased from 244 to 233 but post-prandial increased to 387. Current Medications Current Medications Current Medications: Current Medications Generic Name Dose Route Start Last Admin Trade Name Freq PRN Reason Stop Dose Admin Acetaminophen 650 mg 05/28/24 06:41 06/02/24 01:18 Acetaminophen 325 Mg Tablet PO 650 mg Q6H PRN Administration pain, fever Albuterol 2 puffs 05/28/24 06:41 06/02/24 20:55 Albuterol 1 Puff INH 2 puffs Q2H PRN Administration sob Ascorbic Acid 500 mg 05/28/24 09:00 06/03/24 08:41 Ascorbic Acid 500 Mg Tablet PO 500 mg DAILY ROX Administration Aspirin 81 mg 05/30/24 09:00 06/03/24 08:40 Aspirin Ec 81 Mg Tablet PO 81 mg DAILY ROX Administration Benzonatate 100 mg 05/28/24 06:32 05/28/24 20:57 Benzonatate 100 Mg Capsule PO 100 mg TID PRN Administration Cough Cholecalciferol 800 unit 05/28/24 09:00 06/03/24 08:42 Cholecalciferol 400 Unit Tablet PO 800 unit DAILY ROX Administration Diltiazem HCl 120 mg 06/03/24 09:00 06/03/24 08:41 Diltiazem Cd 120 Mg Capsule PO 120 mg DAILY ROX Administration Enoxaparin Sodium 60 mg 05/28/24 09:00 06/03/24 08:43 Enoxaparin 60 Mg/0.6 Ml Syringe SUBQ 60 mg BID ROX Administration Guaifenesin 600 mg 05/28/24 09:00 06/03/24 08:42 Guaifenesin 600 Mg Tablet PO 600 mg BID ROX Administration Insulin Human Lispro 2 - 10 unit 06/02/24 17:00 06/03/24 08:37 Insulin Lispro 300 Unit/3 Ml Pen SUBQ 6 unit 0800,1200,1700,2100 ROX Administration Protocol Lactobacillus Rhamnosus 1 cap 05/28/24 09:00 06/03/24 08:42 Lactobacillus Rhamnosus Gg Capsule PO 1 cap DAILY ROX Administration Losartan Potassium 100 mg 05/29/24 09:00 06/03/24 08:43 Losartan 50 Mg Tablet PO 100 mg DAILY ROX Administration Magnesium Oxide 400 mg 05/29/24 10:15 06/03/24 08:41 Magnesium Oxide 400 Mg Tablet PO 400 mg DAILYWM ROX Administration Melatonin 3 mg 05/28/24 06:32 Melatonin 3 Mg Tablet PO QPM PRN sleep Metoprolol Succinate 100 mg 06/01/24 09:04 06/03/24 08:39 Metoprolol Succinate 50 Mg Tablet PO 100 mg DAILY ROX Administration Multivitamins/Minerals 1 tab 05/28/24 08:00 06/03/24 08:40 Multivitamin W/Minerals Tablet PO 1 tab DAILYWM ROX Administration Pantoprazole Sodium 40 mg 05/28/24 07:15 06/03/24 06:14 Pantoprazole 40 Mg Tablet PO 40 mg QDAC ROX Administration Saliva Substitute 1 sprays 05/30/24 10:12 05/31/24 08:15 Saliva Stimulant [place] 44.3 Ml Bottle PO 1 sprays Q1H PRN Administration Mouth Sore Pain Sodium Chloride 1 gm 05/29/24 08:00 06/03/24 06:15 Sodium Chloride 1 Gm Tablet PO 1 gm TID ROX Administration Sodium Chloride 10 ml 06/03/24 09:00 06/03/24 08:44 Sodium Chloride Flush 0.9% 10 Ml Syringe IVP 10 ml Q8HR ROX Administration Zinc Sulfate 220 mg 05/28/24 09:00 06/03/24 08:44 Zinc Sulfate 220 Mg Capsule PO 220 mg DAILY ROX Administration Objective Vital Signs/Intake & Output Reviewed Vital Signs: Yes Vital Signs: Vital Signs x48h Temp Pulse Resp BP BP Pulse Ox O2 Flow Rate 06/03/24 08:24 36.5 C 112 H 18 152/101 H 99 2 06/03/24 04:53 36.2 C L 92 H 30 H 170/110 H 98 2 Intake & Output: Intake & Output 06/01/24 06/02/24 06/03/24 06/04/24 05:59 05:59 05:59 05:59 Intake Total 1015 / 1015 1420 / 1420 1270 / 1270 240 / 240 Output Total 4050 / 4050 1475 / 1475 3350 / 3350 Balance -3035 / -3035 -55 / -55 -2080 / -2080 240 / 240 Objective General Appearance: positive No acute distress and Alert Eyes Bilateral: positive Normal inspection ENT: positive ENT inspection nml and Oral lesions Neck: positive Nml inspection Respiratory: positive Chest non-tender and Wheezes Cardiovascular: positive Irregularly irregular Abdomen: positive Non-tender Back: positive Nml inspection Skin: positive Color nml Extremities: positive Non-tender Neurologic/Psychiatric: positive Oriented x3, CN's nml (2-12), Motor nml and Sensation nml Lab Results 06/03/24 05:40 06/03/24 05:40 Other Labs: Lab Results x24hrs 06/03/24 06/03/24 06/02/24 Range/Units 08:05 05:40 21:34 WBC 15.9 H (4.8-10.8) x10^3/uL RBC 3.73 L (4.20-5.40) 10^6/uL Hgb 11.2 L (12.0-16.0) g/dL Hct 35.5 L (37.0-47.0) % MCV 95.2 (81.0-99.0) fL MCH 30.0 (27.0-31.0) pg MCHC 31.5 L (32.0-36.0) g/dL RDW 13.7 (12.0-15.0) % Plt Count 201 (130-450) 10^3/uL MPV 10.1 (7.9-10.8) fL Neut # (Auto) 14.3 H (1.5-6.6) 10^3/uL Lymph # (Auto) 0.8 L (1.5-3.5) 10^3/uL [place] # (Auto) 0.5 (0.0-1.0) 10^3/uL Eos # (Auto) 0.0 (0.0-0.7) 10^3/uL Baso # (Auto) 0.0 (0.0-0.1) 10^3/uL Absolute Nucleated RBC 0.00 x10^3/uL Nucleated RBC % 0.0 /100WBC Sodium 131 L (135-145) mmol/L Potassium 3.7 (3.5-4.5) mmol/L Chloride 92 L (101-111) mmol/L Carbon Dioxide 36 H (21-32) mmol/L Anion Gap 3.0 L (6-13) BUN 20 (6-20) mg/dL Creatinine 0.6 (0.6-1.3) mg/dL Estimated GFR (MDRD) 95 (>89) Glucose 244 H (74-104) mg/dL POC Whole Bld Glucose 233 353 (70-100) mg/dL Calcium 9.4 (8.5-10.3) mg/dL 06/02/24 06/02/24 Range/Units 16:51 11:23 WBC (4.8-10.8) x10^3/uL RBC (4.20-5.40) 10^6/uL Hgb (12.0-16.0) g/dL Hct (37.0-47.0) % MCV (81.0-99.0) fL MCH (27.0-31.0) pg MCHC (32.0-36.0) g/dL RDW (12.0-15.0) % Plt Count (130-450) 10^3/uL MPV (7.9-10.8) fL Neut # (Auto) (1.5-6.6) 10^3/uL Lymph # (Auto) (1.5-3.5) 10^3/uL [place] # (Auto) (0.0-1.0) 10^3/uL Eos # (Auto) (0.0-0.7) 10^3/uL Baso # (Auto) (0.0-0.1) 10^3/uL Absolute Nucleated RBC x10^3/uL Nucleated RBC % /100WBC Sodium (135-145) mmol/L Potassium (3.5-4.5) mmol/L Chloride (101-111) mmol/L Carbon Dioxide (21-32) mmol/L Anion Gap (6-13) BUN (6-20) mg/dL Creatinine (0.6-1.3) mg/dL Estimated GFR (MDRD) (>89) Glucose (74-104) mg/dL POC Whole Bld Glucose 364 367 (70-100) mg/dL Calcium (8.5-10.3) mg/dL Diagnostic Imaging Diagnostic Imaging Results: positive Final report reviewed Assessment/Plan Problem List (1) Acute on chronic respiratory failure with hypoxemia: Impression: Continue on oxygen therapy. Last night, she was placed on 6 L of oxygen and started on Lasix 20 mg once daily. She is now on 2 L of oxygen which is her home baseline. (2) Atrial fibrillation with RVR: Impression: Continue Metoprolol 100 g daily. Continue diltiazem 120 mg once daily for rate control. Consider anticoagulation but due to a fall risk patient should be placed on at least ASA daily for prevention. (3) COVID-19: Impression: Patient completed 5 out of 5 days of Remdesivir on 06/02/2024. Today de anda the final day of a 6-day course of Dexamethasone 6 mg, which will be discontinued after today. Patient will need to be continue on isolation protocol until a negative COVID test is acquired and from there consult social work for placement for a alf facility, ideally [facility] as this is where the patients desire to stay [facility]. Per our infection control discussing infection precaution with SNF for possible placement. (4) Urinary retention: Impression: Likely chronic in nature. Hernández catheter was discontinued but now that a USPVR showed 900 ml retained and plans of reinsertion of a hernández catheter for alleviation and outpatient referral for urology. (5) Chronic hyponatremia: Impression: Chronic dry mouth results in her constantly sipping water. She is on a moist and minced diet. She was started on salt tablets for chronic hyponatremia of 126, yesterday she was at her baseline of 132 but today she is at 131 likely due to the Lasix given. Fluid restrictions have been lifted. (6) Diabetes mellitus: Impression: POC glucose has a shown a downward trend from 244 to 233, post-prandial increased to 387, this morning and will discontinued dexamethasone and level should decrease. Increased extra 2 unit 13 instead of 11 units of Insulinlispro following hypoglycemia protocol. Consider outpatient regimen. 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
[2024-06-03] MEDS: INSULIN LISPRO 300 UNIT/3 ML PEN SUBQ SCH (12:00)
[2024-06-03] MEDS ORDERED: IPRATROPIUM/ALBUTEROL 3 ML NEB INH PRN (21:49)
[2024-06-04 09:40] LABS: BASOPHILS % (AUTO) 0.1 %; HCT - HEMATOCRIT 35.3 % (37.0-47.0); HGB - HEMOGLOBIN 11.3 g/dL (12.0-16.0); LYMPHOCYTES # (AUTO) 0.9 10^3/uL (1.5-3.5); LYMPHOCYTES % (AUTO) 4.6 %; MEAN CORPUSCULAR HEMOGLOBIN 30.7 pg (27.0-31.0); MEAN CORPUSCULAR VOLUME 95.9 fL (81.0-99.0); MEAN PLATELET VOLUME 9.8 fL (7.9-10.8); MONOCYTES # (AUTO) 0.7 10^3/uL (0.0-1.0); MONOCYTES % (AUTO) 3.7 %; NEUTROPHILS # (AUTO) 18.3 10^3/uL (1.5-6.6); NEUTROPHILS % (AUTO) 90.6 %; NRBC ABSOLUTE COUNT (AUTO) 0.02 x10^3/uL; NUCLEATED RED BLOOD CELLS AUTO 0.1 /100WBC; PLT - PLATELET COUNT 218 10^3/uL (130-450); RED BLOOD COUNT 3.68 10^6/uL (4.20-5.40); RED CELL DISTRIBUTION WIDTH 13.7 % (12.0-15.0); WHITE BLOOD COUNT 20.2 x10^3/uL (4.8-10.8)
[2024-06-04 09:46] LABS: SLIDE REVIEW? Indicated
[2024-06-04 09:54] LABS: CREATININE 0.6 mg/dL (0.6-1.3); POTASSIUM 3.7 mmol/L (3.5-4.5)
[2024-06-04 09:57] LABS: PLATELET ESTIMATE, MANUAL NORMAL (130-450,000) (NORMAL); PLATELET MORPHOLOGY NORMAL APPEARANCE (NORMAL); RBC MORPHOLOGY (MULTIPLE) NORMAL APPEARANCE (NORMAL)
--- NOTE | 2024-06-04 11:49 | PROVIDER PROGRESS NOTE ---
Subjective Prog Note Date Prog Note Date: 06/04/24 Prog Note Time: 11:47 Subjective Pt reports feeling: Improved Subjective: An 88-year-old female with a medical history significant for pulmonary fibrosis, newly diagnosed atrial fibrillation, chronic hyponatremia, and acute urinary retention was admitted 6 days ago for acute on chronic respiratory failure in the setting of COVID-19. The patient reports improved coughing fits with light brown sputum. She mainly complains of her increased fatigue and weakness which can be attributed to her age and condition. Also, she says that she still has issues with hard foods but can tolerate soft foods such as oatmeal but denies any odynophagia. Overall, she states she feels like she has improved. She has an increased appetite. She is now on 2 L of oxygen. WBC is 20.2 likely due to her fluctuating glucose levels. POC glucose decreased from 236 to 194 but post- prandial increased to 339. Current Medications Current Medications Current Medications: Current Medications Generic Name Dose Route Start Last Admin Trade Name Freq PRN Reason Stop Dose Admin Acetaminophen 650 mg 05/28/24 06:41 06/02/24 01:18 Acetaminophen 325 Mg Tablet PO 650 mg Q6H PRN Administration pain, fever Albuterol 2 puffs 05/28/24 06:41 06/02/24 20:55 Albuterol 1 Puff INH 2 puffs Q2H PRN Administration sob Albuterol/Ipratropium 3 ml 06/03/24 21:49 Ipratropium/Albuterol 3 Ml Neb INH RTQID PRN Shortness of Air/Wheezing Ascorbic Acid 500 mg 05/28/24 09:00 06/04/24 08:12 Ascorbic Acid 500 Mg Tablet PO 500 mg DAILY ROX Administration Aspirin 81 mg 05/30/24 09:00 06/04/24 08:12 Aspirin Ec 81 Mg Tablet PO 81 mg DAILY ROX Administration Benzonatate 100 mg 05/28/24 06:32 05/28/24 20:57 Benzonatate 100 Mg Capsule PO 100 mg TID PRN Administration Cough Cholecalciferol 800 unit 05/28/24 09:00 06/04/24 08:11 Cholecalciferol 400 Unit Tablet PO 800 unit DAILY ROX Administration Diltiazem HCl 120 mg 06/03/24 09:00 06/04/24 08:09 Diltiazem Cd 120 Mg Capsule PO 120 mg DAILY ROX Administration Enoxaparin Sodium 60 mg 05/28/24 09:00 06/04/24 08:21 Enoxaparin 60 Mg/0.6 Ml Syringe SUBQ 60 mg BID ROX Administration Guaifenesin 600 mg 05/28/24 09:00 06/04/24 08:11 Guaifenesin 600 Mg Tablet PO 600 mg BID ROX Administration Insulin Human Lispro 3 - 11 unit 06/03/24 12:00 06/04/24 08:09 Insulin Lispro 300 Unit/3 Ml Pen SUBQ 5 unit 0800,1200,1700,2100 ROX Administration Protocol Lactobacillus Rhamnosus 1 cap 05/28/24 09:00 06/04/24 08:12 Lactobacillus Rhamnosus Gg Capsule PO 1 cap DAILY ROX Administration Losartan Potassium 100 mg 05/29/24 09:00 06/04/24 08:11 Losartan 50 Mg Tablet PO 100 mg DAILY ROX Administration Magnesium Oxide 400 mg 05/29/24 10:15 06/04/24 08:12 Magnesium Oxide 400 Mg Tablet PO 400 mg DAILYWM ROX Administration Melatonin 3 mg 05/28/24 06:32 Melatonin 3 Mg Tablet PO QPM PRN sleep Metoprolol Succinate 100 mg 06/01/24 09:04 06/04/24 08:22 Metoprolol Succinate 50 Mg Tablet PO 100 mg DAILY ROX Administration Multivitamins/Minerals 1 tab 05/28/24 08:00 06/04/24 08:12 Multivitamin W/Minerals Tablet PO 1 tab DAILYWM ROX Administration Pantoprazole Sodium 40 mg 05/28/24 07:15 06/04/24 05:59 Pantoprazole 40 Mg Tablet PO 40 mg QDAC ROX Administration Saliva Substitute 1 sprays 05/30/24 10:12 05/31/24 08:15 Saliva Stimulant [place] 44.3 Ml Bottle PO 1 sprays Q1H PRN Administration Mouth Sore Pain Sodium Chloride 1 gm 05/29/24 08:00 06/04/24 05:58 Sodium Chloride 1 Gm Tablet PO 1 gm TID ROX Administration Sodium Chloride 10 ml 06/03/24 09:00 06/04/24 05:59 Sodium Chloride Flush 0.9% 10 Ml Syringe IVP 10 ml Q8HR ROX Administration Zinc Sulfate 220 mg 05/28/24 09:00 06/04/24 08:11 Zinc Sulfate 220 Mg Capsule PO 220 mg DAILY ROX Administration Objective Vital Signs/Intake & Output Reviewed Vital Signs: Yes Vital Signs: Vital Signs x48h Temp Pulse Resp BP Pulse Ox O2 Flow Rate 06/04/24 04:44 36.7 C 87 22 148/88 H 94 2 Intake & Output: Intake & Output 06/02/24 06/03/24 06/04/24 06/05/24 05:59 05:59 05:59 05:59 Intake Total 1420 / 1420 1270 / 1270 1300 / 1300 240 / 240 Output Total 1475 / 1475 3350 / 3350 2825 / 2825 Balance -55 / -55 -2080 / -2080 -1525 / -1525 240 / 240 Objective General Appearance: positive No acute distress and Alert Eyes Bilateral: positive Normal inspection, PERRL and EOMI ENT: positive ENT inspection nml Neck: positive Nml inspection Respiratory: positive Chest non-tender, No respiratory distress and Wheezes Cardiovascular: positive Irregularly irregular Abdomen: positive Non-tender Back: positive Nml inspection Skin: positive Color nml Extremities: positive Non-tender Neurologic/Psychiatric: positive Oriented x3, CN's nml (2-12), Motor nml, Sensation nml and Mood/affect nml Lab Results 06/04/24 09:33 06/04/24 09:33 Other Labs: Lab Results x24hrs 06/04/24 06/04/24 06/04/24 Range/Units 11:33 09:33 08:00 WBC 20.2 H (4.8-10.8) x10^3/uL RBC 3.68 L (4.20-5.40) 10^6/uL Hgb 11.3 L (12.0-16.0) g/dL Hct 35.3 L (37.0-47.0) % MCV 95.9 (81.0-99.0) fL MCH 30.7 (27.0-31.0) pg MCHC 32.0 (32.0-36.0) g/dL RDW 13.7 (12.0-15.0) % Plt Count 218 (130-450) 10^3/uL MPV 9.8 (7.9-10.8) fL Neut # (Auto) 18.3 H (1.5-6.6) 10^3/uL Lymph # (Auto) 0.9 L (1.5-3.5) 10^3/uL [place] # (Auto) 0.7 (0.0-1.0) 10^3/uL Eos # (Auto) 0.0 (0.0-0.7) 10^3/uL Baso # (Auto) 0.0 (0.0-0.1) 10^3/uL Absolute Nucleated RBC 0.02 x10^3/uL Nucleated RBC % 0.1 /100WBC Manual Slide Review Indicated Platelet Estimate NORMAL (130-450,000) (NORMAL) Platelet Morphology NORMAL APPEARANCE (NORMAL) RBC Morph Micro Appear NORMAL APPEARANCE (NORMAL) Sodium 126 L (135-145) mmol/L Potassium 3.7 (3.5-4.5) mmol/L Chloride 89 L (101-111) mmol/L Carbon Dioxide 33 H (21-32) mmol/L Anion Gap 4.0 L (6-13) BUN 21 H (6-20) mg/dL Creatinine 0.6 (0.6-1.3) mg/dL Estimated GFR (MDRD) 95 (>89) Glucose 339 H (74-104) mg/dL POC Whole Bld Glucose 334 194 (70-100) mg/dL Calcium 9.0 (8.5-10.3) mg/dL 06/04/24 06/03/24 06/03/24 Range/Units 00:31 20:34 16:11 WBC (4.8-10.8) x10^3/uL RBC (4.20-5.40) 10^6/uL Hgb (12.0-16.0) g/dL Hct (37.0-47.0) % MCV (81.0-99.0) fL MCH (27.0-31.0) pg MCHC (32.0-36.0) g/dL RDW (12.0-15.0) % Plt Count (130-450) 10^3/uL MPV (7.9-10.8) fL Neut # (Auto) (1.5-6.6) 10^3/uL Lymph # (Auto) (1.5-3.5) 10^3/uL [place] # (Auto) (0.0-1.0) 10^3/uL Eos # (Auto) (0.0-0.7) 10^3/uL Baso # (Auto) (0.0-0.1) 10^3/uL Absolute Nucleated RBC x10^3/uL Nucleated RBC % /100WBC Manual Slide Review Platelet Estimate (NORMAL) Platelet Morphology (NORMAL) RBC Morph Micro Appear (NORMAL) Sodium (135-145) mmol/L Potassium (3.5-4.5) mmol/L Chloride (101-111) mmol/L Carbon Dioxide (21-32) mmol/L Anion Gap (6-13) BUN (6-20) mg/dL Creatinine (0.6-1.3) mg/dL Estimated GFR (MDRD) (>89) Glucose (74-104) mg/dL POC Whole Bld Glucose 236 387 355 (70-100) mg/dL Calcium (8.5-10.3) mg/dL Diagnostic Imaging Diagnostic Imaging Results: positive Final report reviewed Assessment/Plan Problem List (1) Acute on chronic respiratory failure with hypoxemia: Impression: Continue oxygen therapy. Currently on 2L of oxygen may trial home oxygen of 4L to see if there is improvement in fatigue. (2) Atrial fibrillation with RVR: Impression: Rate is properly controlled as most recent is 87 BPM. Continue Metoprolol 100 g daily. Continue diltiazem 120 mg once daily for rate control. Consider anticoagulation but due to a fall risk patient should be placed on at least ASA daily for prevention. (3) COVID-19: Impression: Patient will be placed on a swing bed until a negative COVID test is acquired and from there consult social work for placement for a retirement facility, ideally [facility] as this is where the patients desire to stay [place]. (4) Urinary retention: Impression: Likely chronic in nature. Alvarado catheter in place for alleviation. (5) Chronic hyponatremia: Impression: Chronic dry mouth results in her constantly sipping water. She is on a moist and minced diet. She was started on salt tablets for chronic hyponatremia of 126, yesterday she was at her baseline of 131 but today she is at 126 likely due to the Lasix given the night prior or due to her flucuating glucose level. (6) Diabetes mellitus: Impression: Overnight POC glucose has a shown a downward trend from 236 to 196, post- prandial increased to 387, this morning. Leave her at sliding scale and begin Lantus 10 units. Qualifiers: Diabetes mellitus type: type 2 Diabetes mellitus prison insulin use: without prison use
--- NOTE | 2024-06-04 12:00 | Discharge Summary ---
Documented by User: Gurwinder Cornelia 06/04/24 12:58 Discharge Summary Admit Date: 05/28/24 Discharge Date: 06/04/24 Discharging Provider: Candi Ponce PA-C Primary Care Provider: Irma Holder Code Status: Do Not Attempt Resuscitation DIAGNOSES Admission Diagnoses: Acute on chronic respiratory failure, new onset atrial fibrillation Discharge Diagnoses with Status of Each Condition: Acute on Chronic Respiratory Failure with Hypoxemia: Patient requires continued oxygen support; improvement noted with adjusted oxygen levels. Atrial Fibrillation with RVR: Rate is controlled, but anticoagulation strategy needs adjustment due to fall risk. COVID-19: Patient is stable but requires monitoring and placement planning until a negative test is obtained. Urinary Retention: Likely chronic; managed effectively with Alvarado catheter. Chronic Hyponatremia: Ongoing monitoring required; sodium levels need close observation. Diabetes Mellitus: Fluctuating glucose levels require careful management; adjustments made to insulin regimen. HPI History of Present Illness: 88 year old female with a past medical history of pulmonary fibrosis( 4 L oxygen nasal cannula per minute at home), essential hypertension, hyperlipidemia, obstructive sleep apnea, diabetes mellitus, osteoarthritis, and clostridium difficile who was seen at the emergency department this morning due to dyspnea with exertion and was admitted today for new onset atrial fibrillation. Patient states that symptoms began approximately one month ago with dyspnea with exterion but was able to ambulate and take care of herself. She says 1 week ago the dyspnea began to worsen to the point that she was unable to ambulate due to dyspnea and weakness, says "her legs don't work anymore". She says that yesterday she was in her recliner then suddenly she slid off the recliner on to the floor and says her had some people move her to her bed room. Then later that night in her bed she had shortness of breath but says it was when she tried to exert herself then told her she needed to go the the emergency department and the ambulance was called. The ED reports that the EMS reports that upon their arrival to the patient's house, if the patient had a pulse ox in the mid/upper 60s. However, they note that she was using a CPAP machine that was meant for nasal use only, and that she was asleep and breathing through her mouth but was given 4L of O2 and sats increased to upper 90s. She denies fever, chills, congestion, cough, chest pain, palpitations and denies that her slid to the floor was syncope. She denies any known sick contacts and recent travel as she does not leave her home much but says her daughter visits her frequently. She also denies having a history of atrial fibrillation and is not on anticoagulants. Also, she reports having a good memory and is able to walk through series of events of her symptoms from onset. She says she has tried taking at home COVID tests but was unable to understand what she was looking at and states she was taking an antibiotics for UTI but is unsure on which she is on. HOSPITAL COURSE Hospital Course: The patient was treated for acute respiratory failure, atrial fibrillation, and acute urinary retention. She was placed on a moist and minced diet due to difficulty with solid foods and was monitored for hyponatremia, which slightly improved during her stay. Her glucose levels fluctuated, with a noted decrease from 236 to 194 but an increase post-prandial to 339. Discussions regarding her treatment preferences in light of her declining health revealed a divergence between her wishes for minimal intervention and her 's preferences for more aggressive care. This required a complex discussion around end-of-life care. ALLERGIES Allergies Allergy/AdvReac Type Severity Reaction Status Date / Time No Known Drug Allergies Allergy Verified 08/17/23 15:21 MEDICATIONS Ambulatory Orders Medication Instructions Recorded Confirmed alendronate 70 mg tablet 70 mg PO Q7D 05/28/24 05/28/24 glimepiride 1 mg tablet 1 mg PO DAILY 05/28/24 05/28/24 hydrocodone 5 mg-acetaminophen 325 0.5 - 1 tab PO BID PRN pain 05/28/24 05/28/24 mg tablet losartan 100 mg tablet 100 mg PO DAILY 05/28/24 05/28/24 metoprolol tartrate 25 mg tablet 25 mg PO DAILY 05/28/24 05/28/24 nitrofurantoin 100 mg PO BID 05/28/24 05/28/24 monohydrate/macrocrystals 100 mg capsule pantoprazole 40 mg tablet,delayed 40 mg PO DAILY 05/28/24 05/28/24 release PHYSICAL EXAM AT DISCHARGE General Appearance: positive No acute distress and Alert Eyes Bilateral: positive Normal inspection, PERRL and EOMI ENT: positive ENT inspection nml Neck: positive Nml inspection Respiratory: positive Chest non-tender Cardiovascular: positive Irregularly irregular Peripheral Pulses: positive 2+ Abdomen: positive Non-tender Back: positive Nml inspection Skin: positive Color nml Extremities: positive Non-tender Neurologic/Psychiatric: positive Oriented x3, CN's nml (2-12), Motor nml, Sensation nml and Mood/affect nml LABS 06/04/24 09:33 06/04/24 09:33 DIAGNOSTIC IMAGING Diagnostic Imaging Results: Final report reviewed Diagnostic Imaging Results Comments: Echocardiogram: 05/31/2024 * LVEF 50-55% * Mild mitral regurgitation * Moderate tricuspid regurgitation * Mild right ventricular enlargement with preserved function Chest x-ray 06/02/2024: Diffuse interstitial prominence and patchy opacities again suspicious for pulmonary edema or pneumonia, stable to minimally improved when compared to the exam from 05/31/2024. Discharge Plan Discharge Patient Disposition: 61 Swing Bed DC/Xfer Condition: Stable Medically Cleared Date:: 06/04/24 Care Plan Goals: Acute on Chronic Respiratory Failure with Hypoxemia Goal: Patient will maintain oxygen saturation levels above 92% while on oxygen therapy at 2L and demonstrate improvement in fatigue during the trial of 4L oxygen Atrial Fibrillation with Rapid Ventricular Response (RVR) Goal: Patient will maintain a resting heart rate below 100 bpm and demonstrate stable rhythm control with Metoprolol and Diltiazem COVID-19 Goal: Patient will test negative for COVID-19 within 3 days and transition safely to a half-way facility, with social work coordinating placement by that time. Urinary Retention Goal: Patient will report effective relief from urinary retention and demonstrate normal voiding patterns, with regular reassessment of the need for catheterization Chronic Hyponatremia Goal: Patient will maintain serum sodium levels within the normal range with careful monitoring and adjustment of salt tablets Diabetes Mellitus Goal: Patient will achieve and maintain blood glucose levels within the target range using sliding scale insulin and Lantus, with regular glucose monitoring. Assessment: Acute on Chronic Respiratory Failure with Hypoxemia: Patient requires continued oxygen support; improvement noted with adjusted oxygen levels. Atrial Fibrillation with RVR: Rate is controlled, but anticoagulation strategy needs adjustment due to fall risk. COVID-19: Patient is stable but requires monitoring and placement planning until a negative test is obtained. Urinary Retention: Likely chronic; managed effectively with Alvarado catheter. Chronic Hyponatremia: Ongoing monitoring required; sodium levels need close observation. Diabetes Mellitus: Fluctuating glucose levels require careful management; adjustments made to insulin regimen. Plan of Treatment: Acute on Chronic Respiratory Failure with Hypoxemia * Continue oxygen therapy at 2L. * Trial home oxygen at 4L to assess improvement in fatigue. Atrial Fibrillation with Rapid Ventricular Response (RVR) * Continue Metoprolol 100 mg daily. * Continue Diltiazem 120 mg once daily for rate control. * Initiated daily Aspirin 81 mg for anticoagulation due to fall risk. COVID-19 * Place patient in a swing bed until a negative COVID test is obtained. * Consult social work for placement in a half-way facility, preferably [facility]. Urinary Retention * Manage with Alvarado catheter for relief. * Continue monitoring and reassess need for catheterization. Chronic Hyponatremia * Continue salt tablets for chronic hyponatremia. * Monitor sodium levels closely; adjust for effects of Lasix and fluctuating glucose. Diabetes Mellitus * Maintain sliding scale insulin for glucose management. * Initiate Lantus at 10 units to help with basal needs. Print Language: [place] Documented by User: VERONICA Tucker 06/04/24 18:03 Discharge Summary DIAGNOSES Admission Diagnoses: Acute on chronic respiratory failure new onset atrial fibrillation Covid 19 Discharge Diagnoses with Status of Each Condition: Acute on Chronic Respiratory Failure with Hypoxemia: Patient requires continued oxygen support; improvement noted with adjusted oxygen levels. Atrial Fibrillation with RVR: Rate is controlled, but anticoagulation strategy needs adjustment due to fall risk. COVID-19: Patient is stable but requires monitoring and placement planning until a negative test is obtained. Pulmonary Fibrosis: She has had this diagnosis for 2 years. she has been doing fairly well on home O2 until this recent decline. Urinary Retention: Likely chronic; managed effectively with Alvarado catheter. Chronic Hyponatremia: Ongoing monitoring required; sodium levels need close observation. Diabetes Mellitus: Fluctuating glucose levels require careful management; adjustments made to insulin regimen. ounseling regarding end of life decision making: Impression: Discussed end-of-life preferences with the patient and the patient's granddaughter as the patient has expressed wishes for no aggressive intervention but states that her is her current medical decision-maker and has conflicting views. I briefly discussed this patient with palliative care team. Unfortunately they are understaffed and unable to see the patient as an inpatient. With her diagnosis of interstitial lung disease she certainly qualifies for a palliative care consult. We may defer this to the outpatient environment depending on availability of services. In any event we will definitely recommend this to the patient's primary care provider upon discharge or complete a palliative care consultation prior to discharge. I also mentioned this issue to grandson this afternoon. He will also engage with family regarding this mismatch. He tells me that his grandfather, Beto, is very emotional right now. probably not the best time for such a conversation. The patient's has an active COVID infection and therefore is unable he present with her in the hospital at this time. It would certainly be helpful to have him present at the time of palliative care consultation so that he may understand both her wishes and the projected course of her disease. He is feeling better at home, I am speaking with him on the phone almost daily ALLERGIES Allergies Allergy/AdvReac Type Severity Reaction Status Date / Time No Known Drug Allergies Allergy Verified 08/17/23 15:21 MEDICATIONS Ambulatory Orders Medication Instructions Recorded Confirmed alendronate 70 mg tablet 70 mg PO Q7D 05/28/24 05/28/24 glimepiride 1 mg tablet 1 mg PO DAILY 05/28/24 05/28/24 hydrocodone 5 mg-acetaminophen 325 0.5 - 1 tab PO BID PRN pain 05/28/24 05/28/24 mg tablet losartan 100 mg tablet 100 mg PO DAILY 05/28/24 05/28/24 metoprolol tartrate 25 mg tablet 25 mg PO DAILY 05/28/24 05/28/24 nitrofurantoin 100 mg PO BID 05/28/24 05/28/24 monohydrate/macrocrystals 100 mg capsule pantoprazole 40 mg tablet,delayed 40 mg PO DAILY 05/28/24 05/28/24 release LABS 06/04/24 09:33 06/04/24 09:33 Discharge Plan Discharge Patient Disposition: 61 Swing Bed DC/Xfer Condition: Stable Medically Cleared Date:: 06/04/24 Care Plan Goals: Acute on Chronic Respiratory Failure with Hypoxemia Goal: Patient will maintain oxygen saturation levels above 92% while on oxygen therapy at 2L and demonstrate improvement in fatigue during the trial of 4L oxygen Atrial Fibrillation with Rapid Ventricular Response (RVR) Goal: Patient will maintain a resting heart rate below 100 bpm and demonstrate stable rhythm control with Metoprolol and Diltiazem COVID-19 Goal: Patient will test negative for COVID-19 within 3 days and transition safely to a half-way facility, with social work coordinating placement by that time. Urinary Retention Goal: Patient will report effective relief from urinary retention and demonstrate normal voiding patterns, with regular reassessment of the need for catheterization Chronic Hyponatremia Goal: Patient will maintain serum sodium levels within the normal range with careful monitoring and adjustment of salt tablets Diabetes Mellitus Goal: Patient will achieve and maintain blood glucose levels within the target range using sliding scale insulin and Lantus, with regular glucose monitoring. Assessment: Acute on Chronic Respiratory Failure with Hypoxemia: Patient requires continued oxygen support; improvement noted with adjusted oxygen levels. Atrial Fibrillation with RVR: Rate is controlled, but anticoagulation strategy needs adjustment due to fall risk. COVID-19: Patient is stable but requires monitoring and placement planning until a negative test is obtained. Urinary Retention: Likely chronic; managed effectively with Alvarado catheter. Chronic Hyponatremia: Ongoing monitoring required; sodium levels need close observation. Diabetes Mellitus: Fluctuating glucose levels require careful management; adjustments made to insulin regimen. Plan of Treatment: Acute on Chronic Respiratory Failure with Hypoxemia * Continue oxygen therapy at 2L. * Trial home oxygen at 4L to assess improvement in fatigue. Atrial Fibrillation with Rapid Ventricular Response (RVR) * Continue Metoprolol 100 mg daily. * Continue Diltiazem 120 mg once daily for rate control. * Initiated daily Aspirin 81 mg for anticoagulation due to fall risk. COVID-19 * Place patient in a swing bed until a negative COVID test is obtained. * Consult social work for placement in a half-way facility, preferably [facility]. Urinary Retention * Manage with Alvarado catheter for relief. * Continue monitoring and reassess need for catheterization. Chronic Hyponatremia * Continue salt tablets for chronic hyponatremia. * Monitor sodium levels closely; adjust for effects of Lasix and fluctuating glucose. Diabetes Mellitus * Maintain sliding scale insulin for glucose management. * Initiate Lantus at 10 units to help with basal needs. Print Language: [place]
[2024-06-04] MEDS: INSULIN GLARGINE-YFGN 300 UNIT/3 ML PEN SUBQ SCH (20:47)
[2024-06-05 05:48] LABS: BASOPHILS # (AUTO) 0.1 10^3/uL (0.0-0.1); BASOPHILS % (AUTO) 0.2 %; EOSINOPHILS # (AUTO) 0.2 10^3/uL (0.0-0.7); EOSINOPHILS % (AUTO) 0.7 %; HCT - HEMATOCRIT 36.7 % (37.0-47.0); LYMPHOCYTES # (AUTO) 1.7 10^3/uL (1.5-3.5); LYMPHOCYTES % (AUTO) 5.9 %; MEAN CORPUSCULAR HEMOGLOBIN 30.6 pg (27.0-31.0); MEAN CORPUSCULAR HGB CONC 32.7 g/dL (32.0-36.0); MEAN CORPUSCULAR VOLUME 93.6 fL (81.0-99.0); MEAN PLATELET VOLUME 9.7 fL (7.9-10.8); MONOCYTES # (AUTO) 1.8 10^3/uL (0.0-1.0); MONOCYTES % (AUTO) 6.4 %; NEUTROPHILS # (AUTO) 23.7 10^3/uL (1.5-6.6); NEUTROPHILS % (AUTO) 85.3 %; NRBC ABSOLUTE COUNT (AUTO) 0.02 x10^3/uL; NUCLEATED RED BLOOD CELLS AUTO 0.1 /100WBC; PLT - PLATELET COUNT 233 10^3/uL (130-450); RED BLOOD COUNT 3.92 10^6/uL (4.20-5.40); RED CELL DISTRIBUTION WIDTH 13.8 % (12.0-15.0); WHITE BLOOD COUNT 27.8 x10^3/uL (4.8-10.8)
[2024-06-05 06:22] LABS: PLATELET ESTIMATE, MANUAL NORMAL (130-450,000) (NORMAL); RBC MORPHOLOGY (MULTIPLE) NORMAL APPEARANCE (NORMAL)
[2024-06-05 06:23] LABS: DIFFERENTIAL COMMENT MANUAL=AUTO DIFF
[2024-06-05 06:54] LABS: CALCIUM 9.1 mg/dL (8.5-10.3); CREATININE 0.5 mg/dL (0.6-1.3); POTASSIUM 3.7 mmol/L (3.5-4.5)
[2024-06-05 08:32] VITALS: O2SAT 96
== END 2024-06-05 14:44 | disposition swing bed (61) | DRG 189 ==
LOC: ED 01:44 → MS2 06:53
PROVIDERS: ADMIT Student in an Organized Health Care Education/Training Program; ATTEND Student in an Organized Health Care Education/Training Program
DX: R33.9 Retention of urine, unspecified; I48.91 Unspecified atrial fibrillation; R00.0 Tachycardia, unspecified; J96.21 Acute and chronic respiratory failure with hypoxia; Z99.81 Dependence on supplemental oxygen; Z87.891 Personal history of nicotine dependence; D72.829 Elevated white blood cell count, unspecified; Z87.440 Personal history of urinary (tract) infections; Z68.23 Body mass index [BMI] 23.0-23.9, adult; E78.5 Hyperlipidemia, unspecified; R63.0 Anorexia; G47.33 Obstructive sleep apnea (adult) (pediatric); Z66 Do not resuscitate; J84.10 Pulmonary fibrosis, unspecified; U07.1 COVID-19; E87.1 Hypo-osmolality and hyponatremia; R13.10 Dysphagia, unspecified; K13.70 Unspecified lesions of oral mucosa; R32 Unspecified urinary incontinence; I10 Essential (primary) hypertension; R06.09 Other forms of dyspnea; Z79.82 Long term (current) use of aspirin; R53.1 Weakness; E11.9 Type 2 diabetes mellitus without complications

== ENCOUNTER 2024-06-16 07:22 | Inpatient (IN) ==
--- NOTE | 2024-06-16 07:41 | ED Physician Documentation ---
History of Present Illness Stated complaint Stated Complaint: LOW O2 Chief complaint Chief Complaint: Cardiac History obtained from History obtained from: Patient History of Present Illness Pain level max: 0 Pain level now: 0 Additonal information Additional information: Patient is an 88-year-old female who lives at [facility]. She reportedly was brought over for increasing oxygen requirements today. Appears that she has been at [facility] for about a week. She has a history of atrial fibrillation, heart rate noted to be 160s to 170s via EMS. No treatment was given. Patient denies any pain. Patient is unable to give any significant history. No reports of fevers. Has a history of pulmonary fibrosis, atrial fibrillation. Is anticoagulated on apixaban. Patient is reportedly full code. No other history is available. Review of Systems Status of ROS: unobtainable due to mental status Meds/Allgy Home Medications Ambulatory Orders Medication Instructions Recorded Confirmed alendronate 70 mg tablet 70 mg PO Q7D 05/28/24 06/16/24 glimepiride 1 mg tablet 1 mg PO DAILY 05/28/24 06/16/24 hydrocodone 5 mg-acetaminophen 325 0.5 - 1 tab PO BID PRN pain 05/28/24 06/16/24 mg tablet losartan 100 mg tablet 100 mg PO DAILY 05/28/24 06/16/24 pantoprazole 40 mg tablet,delayed 40 mg PO DAILY 05/28/24 06/16/24 release acetaminophen 325 mg tablet 650 mg (2 x 325 mg) PO Q6H PRN 06/07/24 06/16/24 pain, fever #30 tabs albuterol sulfate 90 mcg/actuation 2 puff inhalation Q2H PRN sob #6.7 06/07/24 06/16/24 aerosol inhaler (Ventolin HFA) grams aspirin 81 mg tablet,delayed 81 mg PO DAILY #30 tabs 06/07/24 06/16/24 release benzonatate 100 mg capsule 100 mg PO TID PRN Cough #30 caps 06/07/24 06/16/24 cholecalciferol (vitamin D3) 10 800 unit PO DAILY #30 tabs 06/07/24 06/16/24 mcg (400 unit) tablet (Vitamin D3) diltiazem HCl 120 mg 120 mg PO DAILY 30 days #30 caps 06/07/24 06/16/24 capsule,extended release 24 hr guaifenesin 600 mg tablet, 600 mg PO BID #30 tabs 06/07/24 06/16/24 extended release 12 hr (Mucinex) magnesium oxide 400 mg (241.3 mg 400 mg PO DAILYWM #30 tabs 06/07/24 06/16/24 magnesium) tablet metoprolol succinate 50 mg 100 mg (2 x 50 mg) PO DAILY 30 06/07/24 06/16/24 tablet,extended release 24 hr days #60 tabs sodium chloride 1,000 mg soluble 1,000 mg PO TID 30 days #90 tabs 06/07/24 06/16/24 tablet apixaban 2.5 mg tablet 2.5 mg PO DAILY 06/16/24 06/16/24 atorvastatin 40 mg tablet (Lipitor) 40 mg PO QPM 06/16/24 06/16/24 bisacodyl 10 mg rectal suppository 10 mg ND DAILY PRN constipation 06/16/24 06/16/24 (Dulcolax (bisacodyl)) docusate sodium 100 mg capsule 100 mg PO BID PRN constipation 06/16/24 06/16/24 ipratropium 0.5 mg-albuterol 3 mg 3 ml inhalation TID 06/16/24 06/16/24 (2.5 mg base)/3 mL nebulization soln mineral oil (Fleet Mineral Oil 118 ml ND DAILY PRN constipation 06/16/24 06/16/24 enema) naloxone 4 mg/actuation nasal 4 mg intranasal ONCE PRN opioid 06/16/24 06/16/24 spray (Rextovy) overdose polyethylene glycol 3350 17 gram 17 g PO DAILY PRN constipation 06/16/24 06/16/24 oral powder packet (ClearLax) sennosides 8.6 mg tablet (senna) 17.2 mg PO DAILY PRN constipation 06/16/24 06/16/24 Allergies Allergies Allergy/AdvReac Type Severity Reaction Status Date / Time No Known Drug Allergies Allergy Verified 06/16/24 07:27 [facility] Medical History Medical History (Updated 06/16/24 @ 11:34 by Nunu Mcguire MD) GERD (gastroesophageal reflux disease) Hypomagnesemia Atrial fibrillation Chronic hyponatremia Diabetes mellitus COVID-19 Vitamin D deficiency HLD (hyperlipidemia) Pulmonary fibrosis Obstructive sleep apnea Essential hypertension C. difficile diarrhea Surgical History Surgical History H/O Spinal surgery Social History Social History (Updated 06/16/24 @ 07:31 by Juvenal Peterson, RN) Smoking Status: Former smoker Number of Years Smoked: 3 Do you dip or chew tobacco?: No Do you vape?: No Relationship: Caregiver Level: Assisted Home Mobility Equipment: Walker and Wheeled walker Do you feel safe in your home environment?: Yes Suffered physical, verbal, emotional, or financial abuse?: No ETOH Use: None Substance Use: denies use POLST Patient has POLST: No Exam Constitutional tachypneic HENMT normocephalic and head/scalp atraumatic Eyes PERRL Neck/C-Spine trachea midline, supple and no meningeal signs Respiratory Diminished breath sounds bilaterally, mild crackles. Cardiovascular Tachycardic, irregular Gastrointestinal abdomen soft to palpation, nontender to palpation and nondistended Genitourinary no CVA tenderness Has an indwelling Alvarado catheter Extremities No significant edema Psychiatry Alert, oriented to person only Skin Various bruises on the feet, arms, abdomen. Results Vitals Vitals: Vital Signs - 24 hr 06/16/24 07:27 06/16/24 07:40 06/16/24 07:40 Temperature 36.4 C L Temperature Source Temporal Artery Scan Pulse Rate 174 H Respiratory Rate 38 H Blood Pressure 147/101 H O2 Saturation 95 Oxygen Delivery Method Nasal Cannula Nasal Cannula O2 Source Nasal cannula Oxygen Flow Rate 2 2 If not protocol: Oxygen Flow, liters/minute 2 Pain Intensity 0 06/16/24 07:47 06/16/24 07:48 06/16/24 07:50 Temperature Temperature Source Pulse Rate 163 H 120 H Respiratory Rate 38 H Blood Pressure 138/97 H 125/93 H O2 Saturation 96 95 Oxygen Delivery Method Nasal Cannula O2 Source Nasal cannula Nasal cannula Oxygen Flow Rate If not protocol: Oxygen Flow, liters/minute 2 2 2 Pain Intensity 0 0 06/16/24 07:55 06/16/24 08:00 06/16/24 08:05 Temperature Temperature Source Pulse Rate 126 H 130 H 119 H Respiratory Rate 34 H Blood Pressure 152/97 H 144/81 H 144/96 H O2 Saturation 94 96 96 Oxygen Delivery Method O2 Source Nasal cannula Nasal cannula Nasal cannula Oxygen Flow Rate If not protocol: Oxygen Flow, liters/minute 2 2 2 Pain Intensity 0 0 0 06/16/24 08:27 06/16/24 08:36 06/16/24 08:41 Temperature Temperature Source Pulse Rate 143 H 130 H 134 H Respiratory Rate 24 40 H 36 H Blood Pressure 156/87 H 110/85 128/80 O2 Saturation 92 96 93 Oxygen Delivery Method O2 Source Nasal cannula Nasal cannula Nasal cannula Oxygen Flow Rate If not protocol: Oxygen Flow, liters/minute 2 2 2 Pain Intensity 0 0 0 06/16/24 08:45 06/16/24 09:00 06/16/24 09:10 Temperature Temperature Source Pulse Rate 122 H 131 H 136 H Respiratory Rate 34 H 32 H 32 H Blood Pressure 140/84 H 159/84 H 163/82 H O2 Saturation 93 91 L 92 Oxygen Delivery Method O2 Source Nasal cannula Nasal cannula Nasal cannula Oxygen Flow Rate If not protocol: Oxygen Flow, liters/minute 2 2 2 Pain Intensity 0 0 0 06/16/24 09:16 06/16/24 09:20 06/16/24 09:25 Temperature Temperature Source Pulse Rate 128 H 132 H 127 H Respiratory Rate 36 H Blood Pressure 161/96 H 149/80 H 149/103 H O2 Saturation 94 94 90 L Oxygen Delivery Method O2 Source Nasal cannula Nasal cannula Nasal cannula Oxygen Flow Rate If not protocol: Oxygen Flow, liters/minute 2 2 2 Pain Intensity 0 0 0 06/16/24 09:30 06/16/24 09:35 06/16/24 10:00 Temperature Temperature Source Pulse Rate 99 H 118 H 99 H Respiratory Rate 32 H 34 H Blood Pressure 150/101 H 165/104 H 146/89 H O2 Saturation 94 96 96 Oxygen Delivery Method O2 Source Nasal cannula Nasal cannula Nasal cannula Oxygen Flow Rate If not protocol: Oxygen Flow, liters/minute 2 2 2 Pain Intensity 0 0 0 06/16/24 10:15 06/16/24 10:30 06/16/24 11:00 Temperature 36.1 C L Temperature Source Temporal Artery Scan Pulse Rate 102 H 96 H 92 H Respiratory Rate 34 H 34 H 35 H Blood Pressure 140/90 H 134/79 H 161/98 H O2 Saturation 94 95 96 Oxygen Delivery Method O2 Source Nasal cannula Nasal cannula Nasal cannula Oxygen Flow Rate If not protocol: Oxygen Flow, liters/minute 2 2 2 Pain Intensity 0 0 0 Oxygen O2 Source Nasal cannula Oxygen Flow Rate 2 EKG (time done) 0727: EKG releavant findings:: EKG personally interpreted by author of this note. Relevant findings are: Rate: Other (Rate of 159 bpm. Atrial fibrillation with rapid ventricular response. Left anterior fascicular block. Q waves in V1 and V2. No ST elevation.) Labs Labs: Laboratory Tests 06/16/24 06/16/24 07:43 07:45 WBC 21.4 H RBC 3.61 L Hgb 11.1 L Hct 35.0 L MCV 97.0 MCH 30.7 MCHC 31.7 L RDW 14.2 Plt Count 230 MPV 9.7 Neut # (Auto) 19.2 H Lymph # (Auto) 0.7 L [place] # (Auto) 1.2 H Eos # (Auto) 0.0 Baso # (Auto) 0.0 Absolute Nucleated RBC 0.00 Nucleated RBC % 0.0 Manual Slide Review Indicated WBC Morphology NORMAL APPEARANCE Platelet Estimate NORMAL (130-450,000) Platelet Morphology NORMAL APPEARANCE RBC Morph Micro Appear NORMAL APPEARANCE Sodium 128 L Potassium 4.8 H Chloride 93 L Carbon Dioxide 27 Anion Gap 8.0 BUN 23 H Creatinine 0.9 Estimated GFR (MDRD) 59 L Glucose 425 H Calcium 9.6 Total Bilirubin 1.3 H AST 25 ALT 31 Alkaline Phosphatase 51 Total Protein 7.0 Albumin 3.1 L Globulin 3.9 Albumin/Globulin Ratio 0.8 L Lipase < 10 L Nasal Adenovirus (PCR) NOT DETECTED Nasal B. parapertussis DNA (PCR) NOT DETECTED Nasal Coronavir 229E PCR NOT DETECTED Nasal Coronavir HKU1 PCR NOT DETECTED Nasal Coronavir NL63 PCR NOT DETECTED Nasal Coronavir OC43 PCR NOT DETECTED Nasal Enterovir/Rhinovir PCR NOT DETECTED Nasal Influenza B PCR NOT DETECTED Nasal Influenza A PCR NOT DETECTED Nasal Parainfluen 1 PCR NOT DETECTED Nasal Parainfluen 2 PCR NOT DETECTED Nasal Parainfluen 3 PCR NOT DETECTED Nasal Parainfluen 4 PCR NOT DETECTED Nasal RSV (PCR) NOT DETECTED Nasal B.pertussis DNA PCR NOT DETECTED Nasal C.pneumoniae (PCR) NOT DETECTED Sg Human Metapneumo PCR NOT DETECTED Nasal M.pneumoniae (PCR) NOT DETECTED Nasal SARS-CoV-2 (PCR) DETECTED A PD Medical Decision Making ED course Complexity details: reviewed results, d/w patient and d/w talent development consultant ED course: Patient is an 88-year-old female with atrial fibrillation with rapid ventricular response. I reviewed her prior hospitalization note. It states that she is DNR, but that she did not want to tell her . The patient is listed as full code from [facility]. She is stable back on her usual oxygen here. She was significantly tachycardic, 170s to 180s upon arrival. Diltiazem IV push was given, heart rate decreased to approximately 1 30-1 40. Diltiazem drip was then started. History of atrial fibrillation. She was not discharged on apixaban, but this appears to been restarted at the [facility]. Discussed the case with Dr. Mcguire, hospitalist for admission for A-fib RVR on diltiazem drip. She states that due to nursing issues there is not a bed available at this time. Therefore the patient will be boarded in the emergency department. A bed did become available in the emergency department, her A-fib RVR is controlled on a diltiazem drip. Discussed the case again with Dr. Mcguire, hospitalist who accepts. Patient will be admitted for A-fib RVR. Discharge Plan Discharge Patient Disposition: [facility] DC/Xfer Clinical Impression: Acute on chronic respiratory failure with hypoxemia, Atrial fibrillation with RVR Prescriptions: No Action alendronate 70 mg tablet 70 mg PO Q7D glimepiride 1 mg tablet 1 mg PO DAILY pantoprazole 40 mg tablet,delayed release (DR/EC) 40 mg PO DAILY losartan 100 mg tablet 100 mg PO DAILY hydrocodone-acetaminophen 5-325 mg tablet 0.5 - 1 tab PO BID PRN (Reason: pain) Patient Comments: TAKE 1/2 TO 1 (ONE-HALF TO ONE) TABLET BY MOUTH TWICE DAILY NEEDED FOR PAIN (RX 1 OF 3) acetaminophen 325 mg Tablet 650 mg PO Q6H PRN (Reason: pain, fever) Qty: 30 0RF aspirin 81 mg Tablet,Delayed Release (Dr/Ec) 81 mg PO DAILY Qty: 30 0RF benzonatate 100 mg Capsule 100 mg PO TID PRN (Reason: Cough) Qty: 30 0RF cholecalciferol (vitamin D3) [Vitamin D3] 10 mcg (400 unit) Tablet 800 unit PO DAILY Qty: 30 0RF diltiazem HCl 120 mg Capsule,Extended Release 24hr 120 mg PO DAILY 30 Days Qty: 30 0RF guaifenesin [Mucinex] 600 mg Tablet Extended Release 12hr 600 mg PO BID Qty: 30 0RF magnesium oxide 400 mg (241.3 mg magnesium) Tablet 400 mg PO DAILYWM Qty: 30 0RF albuterol sulfate [Ventolin HFA] 90 mcg/actuation Hfa Aerosol Inhaler 2 puff inhalation Q2H PRN (Reason: sob) Qty: 6.7 0RF metoprolol succinate 50 mg Tablet Extended Release 24 Hr 100 mg PO DAILY 30 Days Qty: 60 0RF sodium chloride 1,000 mg Tablet,Soluble 1,000 mg PO TID 30 Days Qty: 90 0RF apixaban 2.5 mg tablet 2.5 mg PO DAILY atorvastatin [Lipitor] 40 mg tablet 40 mg PO QPM docusate sodium 100 mg capsule 100 mg PO BID PRN (Reason: constipation) bisacodyl [Dulcolax (bisacodyl)] 10 mg suppository 10 mg ND DAILY PRN (Reason: constipation) ipratropium-albuterol 0.5 mg-3 mg(2.5 mg base)/3 mL solution for nebulization 3 ml inhalation TID mineral oil [Fleet Mineral Oil] Enema 118 ml ND DAILY PRN (Reason: constipation) Rx Instructions: discard any unused portion polyethylene glycol 3350 [ClearLax] 17 gram powder in packet 17 g PO DAILY PRN (Reason: constipation) naloxone [Rextovy] 4 mg/actuation spray,non-aerosol 4 mg intranasal ONCE PRN (Reason: opioid overdose) Rx Instructions: spray 1 dose into ONE nostril; alternate nostrils w each dose until help arrives sennosides [senna] 8.6 mg tablet 17.2 mg PO DAILY PRN (Reason: constipation) Print Language: Iranian
[2024-06-16] MEDS: diltiaZEM INJ 5 MG/ML VIAL IVP STA (07:44)
[2024-06-16 07:50] LABS: BASOPHILS % (AUTO) 0.2 %; HGB - HEMOGLOBIN 11.1 g/dL (12.0-16.0); LYMPHOCYTES # (AUTO) 0.7 10^3/uL (1.5-3.5); LYMPHOCYTES % (AUTO) 3.3 %; MEAN CORPUSCULAR HEMOGLOBIN 30.7 pg (27.0-31.0); MEAN CORPUSCULAR HGB CONC 31.7 g/dL (32.0-36.0); MEAN PLATELET VOLUME 9.7 fL (7.9-10.8); MONOCYTES # (AUTO) 1.2 10^3/uL (0.0-1.0); MONOCYTES % (AUTO) 5.8 %; NEUTROPHILS # (AUTO) 19.2 10^3/uL (1.5-6.6); NEUTROPHILS % (AUTO) 89.9 %; PLT - PLATELET COUNT 230 10^3/uL (130-450); RED BLOOD COUNT 3.61 10^6/uL (4.20-5.40); RED CELL DISTRIBUTION WIDTH 14.2 % (12.0-15.0); WHITE BLOOD COUNT 21.4 x10^3/uL (4.8-10.8)
--- NOTE | 2024-06-16 08:13 | XRAY Report ---
PROCEDURE: XR Chest 1V INDICATIONS: Chest Pain TECHNIQUE: One view of the chest was acquired. COMPARISON: 06/02/2024, 05/31/2024 FINDINGS: Surgical changes and devices: None. Lungs and pleura: Generalized interstitial prominence can be seen. Low lung volumes can be seen, cau sing a crowded appearance to the lung markings. There is blunting of the costophrenic angles. Mediastinum: Mediastinal contours appear normal. Heart size is moderately enlarged. Bones and chest wall: No suspicious bony lesions. Degenerative changes are seen, including involvin g the shoulders. Overlying soft tissues appear unremarkable. IMPRESSION: Cardiomegaly with interstitial prominence and apparent small pleural effusions. CHF is suspected. The lung volumes are low. Reviewed by: Los Maynard MD on 06/16/2024 7:12 AM [facility] Approved by: Los Maynard MD on 06/16/2024 7:12 AM [facility] Station ID: [id number]
[2024-06-16 08:20] LABS: ALBUMIN 3.1 g/dL (3.2-5.5); ALBUMIN/GLOBULIN RATIO 0.8 (1.0-2.2); ALKALINE PHOSPHATASE 51 IU/L (42-121); ALT ALANINE AMINOTRANSFERASE 31 IU/L (10-60); AST ASPARTATE AMINOTRANSFERASE 25 IU/L (10-42); BILIRUBIN,TOTAL 1.3 mg/dL (0.2-1.0); BUN - BLOOD UREA NITROGEN 23 mg/dL (6-20); CALCIUM 9.6 mg/dL (8.5-10.3); CARBON DIOXIDE - CO2 27 mmol/L (21-32); CHLORIDE 93 mmol/L (101-111); CREATININE 0.9 mg/dL (0.6-1.3); GFR - MDRD 59 (>89); GLUCOSE 425 mg/dL (74-104); POTASSIUM 4.8 mmol/L (3.5-4.5); SODIUM 128 mmol/L (135-145)
[2024-06-16] MEDS: diltiaZEM INJ 125 MG in DEXTROSE 5% 100 ML IV STA (08:23)
[2024-06-16 08:25] LABS: LIPASE < 10 U/L (11-82)
[2024-06-16 08:28] LABS: SLIDE REVIEW? Indicated
[2024-06-16 08:29] LABS: PLATELET ESTIMATE, MANUAL NORMAL (130-450,000) (NORMAL); PLATELET MORPHOLOGY NORMAL APPEARANCE (NORMAL); RBC MORPHOLOGY (MULTIPLE) NORMAL APPEARANCE (NORMAL); WBC MORPHOLOGY (MULTIPLE) NORMAL APPEARANCE (NORMAL)
[2024-06-16 08:42] LABS: B. PARAPERTUSSIS- RESP PCR PAN NOT DETECTED; B. PERTUSSIS- RESP PCR PANEL NOT DETECTED; C. PNEUMONIAE- RESP PCR PANEL NOT DETECTED; CORONAVIRUS 229E-RESP PCR NOT DETECTED; CORONAVIRUS HKU1-RESP PCR NOT DETECTED; CORONAVIRUS NL63-RESP PCR NOT DETECTED; CORONAVIRUS OC43-RESP PCR NOT DETECTED; HUMAN METAPNEUMOVIRUS NOT DETECTED; INFLUENZA A- RESP PCR PANEL NOT DETECTED; INFLUENZA B - RESP PCR PANEL NOT DETECTED; M. PNEUMONIAE- RESP PCR PANEL NOT DETECTED; PARAINFLUENZA VIRUS 1 NOT DETECTED; PARAINFLUENZA VIRUS 2 NOT DETECTED; PARAINFLUENZA VIRUS 3 NOT DETECTED; PARAINFLUENZA VIRUS 4 NOT DETECTED; RHINOVIRUS/ENTEROVIRUS NOT DETECTED; RSV- RESP PCR PANEL NOT DETECTED
[2024-06-16 08:47] LABS: SARS-CoV-2 -RESP PCR PANEL DETECTED
[2024-06-16] MEDS ORDERED: ONDANSETRON ODT 4 MG TABLET TL PRN (12:35)
[2024-06-16] MEDS ORDERED: ONDANSETRON 4 MG/2 ML VIAL IVP PRN (12:35)
[2024-06-16] MEDS ORDERED: HYDROcod/ACET 5/325 Prepack 4 PO PRN (12:35)
[2024-06-16] MEDS ORDERED: BENZONATATE 100 MG CAPSULE PO PRN (12:35)
[2024-06-16] MEDS ORDERED: SODIUM CHLORIDE FLUSH 0.9% 10 ML SYRINGE IVP PRN (12:35)
--- NOTE | 2024-06-16 13:25 | PHARMACY PROGRESS NOTE ---
Best Possible Medication History Admit Date and Time: 06/16/24 [id number] Processed by: Pharmacy Medications reviewed in ED?: Yes Medication History completed: Yes Secondary Source(s): Facility MAR as ONLY source ([facility]) [facility] [place] Statement: As the person ultimately responsible for medication therapy, providers are able to order a medication from an existing home medication list in [facility] via the "Reconcile Routine" prior to Confirmation of that medication by print support specialist. Such practice is discouraged except when the physician, in their clinical judgment, deems that a medical need exists for a medication without regard to previous use.
[2024-06-16] MEDS: IPRATROPIUM/ALBUTEROL 3 ML NEB INH SCH (13:59)
[2024-06-16] MEDS: SODIUM CHLORIDE 0.9% 1,000 ML IV SCH (14:04)
[2024-06-16] MEDS: diltiaZEM CD 120 MG CAPSULE PO SCH (14:17)
[2024-06-16] MEDS: SODIUM CHLORIDE 1 GM TABLET PO SCH (14:18)
--- NOTE | 2024-06-16 17:11 | HISTORY & PHYSICAL EXAMINATION ---
Chief Complaint <Gurwinder Locke - Last Filed: 06/16/24 17:49> Chief Complaint Chief Complaint: Acute on chronic respiratory failure with hypoxemia, Afib with RVR History of Present Illness <Gurwinder Locke - Last Filed: 06/16/24 17:49> Admitted From Admitted From:: ED History Obtained From Records Reviewed: Prior ED and Prior Admission History obtained from: Patient, , Daughter, Grandaughter History of Present Illness HPI Comment/Other: 88 year old female with a past medical history of pulmonary fibrosis, diabetes mellitus, acute on chronic respiratory failure who presents with worsening weakness and functional decline following a recent stay at a fdc facility and is being admitted due to acute on chronic respiratory failure with hypoxemia, and atrial fibrillation with RVR. She was initially transferred to the nursing facility after a hospitalization here for new-onset atrial fibrillation with RVR and COVID-19. According to her , she seemed stabled the first few days at the nursing facility. However, on Monday approximately 5 days ago, her condition began to deteriorate, and over the past two days she has exhibited increased fatigue, generalized weakness, and decreased appetite; her states she has not had much to eat since she arrived to the nursing facility. New sacral ulcer found on admission measuring approximately 5x4 cm. She denies any pain, cough, fever, or chills. She reports feeling "just weak". Her expressed concerns about her ability to complete the physical therapy at the alf due to how fatigue she gets afterwards and told them to ease up on her. Her is her medical power of employment attorney followed by his daughter Milla as second in line. Meds/Allgy <Gurwinder Locke - Last Filed: 06/16/24 17:49> Home Medications Ambulatory Orders Medication Instructions Recorded Confirmed alendronate 70 mg tablet 70 mg PO FR 05/28/24 06/16/24 glimepiride 1 mg tablet 1 mg PO DAILY 05/28/24 06/16/24 hydrocodone 5 mg-acetaminophen 325 0.5 - 1 tab PO BID PRN pain 05/28/24 06/16/24 mg tablet losartan 100 mg tablet 100 mg PO DAILY 05/28/24 06/16/24 pantoprazole 40 mg tablet,delayed 40 mg PO DAILY 05/28/24 06/16/24 release acetaminophen 325 mg tablet 650 mg (2 x 325 mg) PO Q6H PRN 06/07/24 06/16/24 pain, fever #30 tabs albuterol sulfate 90 mcg/actuation 2 puff inhalation Q2H PRN sob #6.7 06/07/24 06/16/24 aerosol inhaler (Ventolin HFA) grams aspirin 81 mg tablet,delayed 81 mg PO DAILY #30 tabs 06/07/24 06/16/24 release benzonatate 100 mg capsule 100 mg PO TID PRN Cough #30 caps 06/07/24 06/16/24 cholecalciferol (vitamin D3) 10 800 unit PO DAILY #30 tabs 06/07/24 06/16/24 mcg (400 unit) tablet (Vitamin D3) diltiazem HCl 120 mg 120 mg PO DAILY 30 days #30 caps 06/07/24 06/16/24 capsule,extended release 24 hr guaifenesin 600 mg tablet, 600 mg PO BID #30 tabs 06/07/24 06/16/24 extended release 12 hr (Mucinex) magnesium oxide 400 mg (241.3 mg 400 mg PO DAILYWM #30 tabs 06/07/24 06/16/24 magnesium) tablet metoprolol succinate 50 mg 100 mg (2 x 50 mg) PO DAILY 30 06/07/24 06/16/24 tablet,extended release 24 hr days #60 tabs sodium chloride 1,000 mg soluble 1,000 mg PO TID 30 days #90 tabs 06/07/24 06/16/24 tablet apixaban 2.5 mg tablet 2.5 mg PO DAILY 06/16/24 06/16/24 atorvastatin 40 mg tablet (Lipitor) 40 mg PO QPM 06/16/24 06/16/24 bisacodyl 10 mg rectal suppository 10 mg SC DAILY PRN constipation 06/16/24 06/16/24 (Dulcolax (bisacodyl)) docusate sodium 100 mg capsule 100 mg PO BID PRN constipation 06/16/24 06/16/24 ipratropium 0.5 mg-albuterol 3 mg 3 ml inhalation TID 06/16/24 06/16/24 (2.5 mg base)/3 mL nebulization soln mineral oil (Fleet Mineral Oil 118 ml SC DAILY PRN constipation 06/16/24 06/16/24 enema) naloxone 4 mg/actuation nasal 4 mg intranasal ONCE PRN opioid 06/16/24 06/16/24 spray (Rextovy) overdose polyethylene glycol 3350 17 gram 17 g PO DAILY PRN constipation 06/16/24 06/16/24 oral powder packet (ClearLax) sennosides 8.6 mg tablet (senna) 17.2 mg PO DAILY PRN constipation 06/16/24 06/16/24 Allergies Allergies Allergy/AdvReac Type Severity Reaction Status Date / Time No Known Drug Allergies Allergy Verified 06/16/24 07:27 PFSH <Gurwinder Locke - Last Filed: 06/16/24 17:49> Medical History Medical History GERD (gastroesophageal reflux disease) Hypomagnesemia Atrial fibrillation Chronic hyponatremia Diabetes mellitus COVID-19 Vitamin D deficiency HLD (hyperlipidemia) Pulmonary fibrosis Obstructive sleep apnea Essential hypertension C. difficile diarrhea Surgical History Surgical History H/O Spinal surgery Social History Social History Smoking Status: Never smoker Number of Years Smoked: 3 Do you dip or chew tobacco?: No Do you vape?: No Relationship: Spouse Level: Dependent Home Mobility Equipment: Walker and Wheeled walker Do you feel safe in your home environment?: Yes Suffered physical, verbal, emotional, or financial abuse?: No ETOH Use: None Substance Use: denies use POLST Patient has POLST: Yes POLST Status: DNR (Her is her medical power of employment attorney followed by his daughter Milla as second in line. ) Review of Systems <Gurwinder Locke - Last Filed: 06/16/24 17:49> Constitutional Reports: Fatigue, Weakness, Changes in appetite or eating habits and Poor appetite; Denies: Fever or Chills Eyes Denies: Change in vision Ears, nose, mouth, and throat Reports: Difficulty swallowing and Dry mouth Cardiovascular Reports: Irregular heart rate, swelling of feet/ankles, shortness of breath with exertion, shortness of breath when lying down and Decreased exercise tolerance; Denies: chest pain, palpitations or Syncope Respiratory Reports: Shortness of breath, Orthopnea, SOB at rest and SOB with exertion; Denies: Cough, Sputum production, Change in phlegm color, Wheezing, Apnea or Chest congestion Gastrointestinal Reports: Poor appetite and Difficulty swallowing Genitourinary Reports: Urinary incontinence Musculoskeletal Reports: Limited range of motion Integumentary/Breast Reports: New lesion Neurological Reports: General weakness Endocrine Reports: Excessive thirst and Fatigue Hematologic/Lymphatic Reports: Easy bruising Allergic/Immunologic Denies: Wheezing Exam <Gurwinder Locke - Last Filed: 06/16/24 17:49> Constitutional abnormal body habitus cachectic HENMT normocephalic Eyes PERRL, conjunctivae normal and no scleral icterus Neck/C-Spine visual inspection normal, trachea midline and cervical full ROM noted Lymph no lymphadenopathy noted Chest inspection of chest normal Respiratory auscultation abnormal and no use of accessory muscles Bilateral fine crackles. Mouth breathing. Cardiovascular heart rate abnormal, rhythm abnormal and edema noted Irregularly irregular rhythm Gastrointestinal abdomen normal to inspection Extremities bilateral lower extremity swelling no pitting edema Neurology chief technician x ray II-XII intact, no movement abnormality noted, no focal motor deficit noted, no sensory deficits noted and speech normal Skin skin color normal, ecchymosis noted and wound(s) noted New sacral ulcer found on admission measuring approximately 5x4 cm. Redness of both heels, and ecchymosis noted n the right lower abdomen and mons pubis area Conclusion/Plan <Gurwinder Locke - Last Filed: 06/16/24 17:49> Problem List (1) Atrial fibrillation with RVR: Plan: Rate control: Diltiazem, Metoprolol, Telemetry monitoring (2) New onset of congestive heart failure: Plan: CXR performed at the ED showed: Cardiomegaly with interstitial prominence and apparent small pleural effusions. CHF is suspected. Initiate furosemide to manage fluid overload titrating cautiously to avoid dehydration or worsening renal function. Electrolyte and fluid monitoring to manage volume status without exacerbating hyponatremia (3) Acute on chronic respiratory failure with hypoxemia: Plan: Oxygen therapy: increased from 1L O2 to 4L of O2 due to patient's mouth breathing to maintain SpO2 at 88-92% Consider non-invasive ventilation, BIPAP, if hypoxemia worsens or signs of CO2 retention appear. (4) Diabetes mellitus: Plan: Glycemic control: Initiate insulin therapy to achieve better glycemic control. Monitor every 2 hours. Patient was placed on a moisted and minced diet. Qualifiers: Diabetes mellitus shelter insulin use: without shelter use Diabetes mellitus type: type 2 (5) Pulmonary fibrosis: Plan: Nasal cannula O2 was icnreased from 1L to 4 to maintain appropriate oxygen therapy. Discussed goals of care with patient and her support system and plan was discussed on discontinuing atorvastatin, alendronate, apixaban, and aspirin as these medications are primarily preventative and may no longer provide meaning benefit in the context of her palliative care needs. Discussed advance care needs to her support system today. Discussed with her who is her medical power of employment attorney and due to her advance illness agreed to her wishes of DNR today. (6) Sacral pressure ulcer: Plan: Implement wound care regimen for the sacral ulcer including regular cleaning, dressing changes, and pressure relief. Reposition every 2 hours to minimize further skin breakdown. Ensure adequate protein intake and calorie intake to support wound healing (7) Generalized weakness: Lab Results Lab results reviewed: Yes 06/16/24 07:43 06/16/24 07:43 Diagnostic Imaging Results Diagnostic Imaging Results: positive Final report reviewed <Nunu Mcguire MD - Last Filed: 06/16/24 18:50> Problem List (1) Atrial fibrillation with RVR: Plan: There is a question whether this diagnosis is new or not. It was new to the with her last admission May 28. He did not even know she was on apixaban. He says that his is seen by Dr. Jeter, cardiology, and that she is on metoprolol but he does not know why. Echocardiogram was done with her previous day. That echocardiogram had a left ventricular function that was normal at 50 to 55% without wall motion abnormalities. She had mild right ventricular enlargement. Systolic function was normal. She had mild mitral regurgitation. She had moderate tricuspid regurgitation and moderately abnormal right heart pressures with an RVSP at 57 mm. She also had severe dilation of the left atrium. And severe dilation of the right atrium. Plan: Inpatient status, and send her to the ICU with a diltiazem drip. Will be continuing p.o. diltiazem and metoprolol as well. Stop the drip an hour later. Will call her farm consultant, Dr. Jeter, in the morning to discuss (2) New onset of congestive heart failure: Plan: CXR performed at the ED showed: Cardiomegaly with interstitial prominence and apparent small pleural effusions. CHF is suspected. Says that she does not have a diagnosis of this. Again she is seen by cardiology but he does not know why. Initiate furosemide to manage fluid overload titrating cautiously to avoid dehydration or worsening renal function. Electrolyte and fluid monitoring to manage volume status without exacerbating hyponatremia Cardiogram in the morning. And I will call Dr. Jeter in the morning. (3) Acute on chronic respiratory failure with hypoxemia: (4) Diabetes mellitus: (5) Pulmonary fibrosis: Plan: Nasal cannula O2 was icnreased from 1L to 4 to maintain appropriate oxygen therapy. Discussed goals of care with patient and her support system and plan was discussed on discontinuing atorvastatin, alendronate, apixaban, and aspirin as these medications are primarily preventative and may no longer provide meaning benefit in the context of her palliative care needs.I have dictated a separate advance care planning note. Please see that note. Discussed advance care needs to her support system today. Discussed with her who is her medical power of employment attorney and due to her advance illness agreed to her wishes of DNR today. (6) Sacral pressure ulcer: Plan: Was discharged from the hospital, she did not have a sacral decub. There is now one present on admission. Plan: Implement wound care regimen for the sacral ulcer including regular cleaning, dressing changes, and pressure relief. Reposition every 2 hours to minimize further skin breakdown. Ensure adequate protein intake and calorie intake to support wound healing (7) Generalized weakness: Plan: describes her as being independent at home with limited mobility because of her cardiopulmonary status. But she is able to feed herself, dress herself. Maybe even get up to the kitchen to make "toast". She would also sit outside on their porch and sit in the sun. With her last hospitalizations to be significantly deconditioned and needed to go to a fdc facility for rehab. He said that it was overwhelming for her. She could not fully participate because she was exhausted. The alf sent him a letter saying that she was either going to be discharged or transition to long-term care. Today, he, his daughter, granddaughter, and great granddaughter were in the room as the family discussed what they were going to do if she could not go back to the alf for rehab. They also wondered if they could switch her to a different alf. They will let me know what they decide.
[2024-06-16] MEDS: INSULIN LISPRO 300 UNIT/3 ML PEN SUBQ SCH ×2 (18:10→18:11)
[2024-06-16] MEDS: SODIUM CHLORIDE FLUSH 0.9% 10 ML SYRINGE IVP SCH (18:12)
--- NOTE | 2024-06-16 19:39 | ADVANCE CARE PLANNING NOTE ---
Advance Care Planning Planning Encounter Date: 06/16/24 Time: 16:30 Purpose: Establish care goals if possible, and discuss CODE STATUS with family Parties in Attendance: PA students from , patient, , designated DPOA daughter, granddaughter, and great granddaughter, and finally hospitalist. Decisional Capacity of the Patient: Patient is usually alert, oriented, and able to make her own decisions. encephephalopathic from CHF, fatigue, hypoxia. Able to answer minimal questions. But falls asleep in midsentence. Diagnosis for Encounter (1) Atrial fibrillation with RVR: (2) New onset of congestive heart failure: (3) Acute on chronic respiratory failure with hypoxemia: Summary: This patient has had longstanding obstructive sleep apnea on CPAP for probably 15 years. She then did grow up worsening shortness of breath, cough during the daytime was diagnosed as interstitial lung disease and pulmonary fibrosis. For the last few years she has been on 24/7 oxygen. She was recently hospitalized with A-fib with RVR, discharged to [facility] for rehab, and returns with A- fib with RVR, encephalopathy, acute on chronic hypoxia, and a new diagnosis of CHF (4) Diabetes mellitus: Qualifiers: Diabetes mellitus termite inspector insulin use: without longterm use Diabetes mellitus type: type 2 (5) Pulmonary fibrosis: (6) Sacral pressure ulcer: (7) Generalized weakness: Encounter Subjective/Patient's Story: Patient is from the [facility]. [place]. 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 [place] They have their own home. She is described as alert, interactive. Having a good appetite. Her endurance is markedly limited because of her lung disease and need for oxygen but her family describes her as able to get up out of a chair, able to sit in the sun to enjoy the day. Get up to make some toast or coffee. Able to dress herself. She did need help in the shower and uses a shower chair. Her helps her.. And to ambulate in her home, she uses a walker with a seat. This has been relatively stable for about 2-1/2 to 3 years. No pain. No nausea. Her primary care provider is Chelsea Bustos. That all changed when Became ill with COVID, and the COVID destabilized her cardiac status. From a global perspective, the family has not come to understand that the recent COVID illness, the recent admission for A-fib with RVR, and this current admission may be indicating that she is not going to do well. They still feel that if she can get through these current acute episodes, and given enough time and strength, she will recover. They would like to use an opportunity for rehab to get her home. With her last admission, She had ACP conversation with our hospitalist team. She wanted to be a DO NOT RESUSCITATE but was anxious of filling out a POLST form because she did not want to disappoint her . I described that to her family and her stated that he wants what she wants. If she wants to be DO NOT RESUSCITATE he wants to validate that. The daughter then felt that may be she should be resuscitated. I then described what resuscitation means with CPR, electrical cardioversion, intubation, epinep hrine injections. I also discussed the outcomes. And with that conversation the family was in agreement that they did not want that for their mother. And that they also wanted to validate her desire to be DO NOT RESUSCITATE. Her asked quite a bit of questions about how we come to the conclusion that the patient is stable for discharge. He wanted to know his rights with regards to appealing discharge. I described that process. He also wanted to know what this letter was about from the correction. All those questions were answered. They feel that the patient did not get enough nutrition at the correction. She is a very picky eater so was refusing to eat some of the food. They are anxious for her to get a diet that she likes. They would like the same diet that she had her before. She was hungry earlier this evening and asked for food. Objective/Medical Story: she became ill with COVID. And then COVID caused A-fib. She does see a mattress specialist, Dr. Jeter, and is on metoprolol. But the does not know what the metoprolol is for or what she sees Dr. Jeter for. She was then hospitalized for A-fib with RVR. That was May 28. Since that time she has had a marked deterioration in mobility, endurance. She went to a [facility] for rehab 06/04 but her feels it was too much. He describes a day where PT and OT worked with her and she was exhausted. He also describes where she had a shower and she slept the rest the day after getting a shower. Mr. Devi shows me a letter from the correction were the patient is no longer able to do PT. And as such she will no longer meet criteria to be in the correction and they are recommending transition to long-term care. I explained to him what that meant. As he was trying to figure out what to do next, the patient was described as fatigued, short of breath, and she returned to our ER today from the SNF. While she has atrial fibrillation with RVR, there are also some elements of congestive heart failure and that she has new findings of edema on chest x-ray, new leg edema. The patient also has new decubitus ulcer of the sacrum. Goals of Care: 1. They would like to see her recover from this acute episode of care. I explained that I am going to stabilize her A-fib with RVR, new CHF, and would be calling her mattress specialist tomorrow. 2. From there, they would like to revisit the issue of rehab. They agree that she may need to slow down with exercise. Even if it is just to do range of motion exercises and get out of bed, they would like to see PT work with her. When she gets strong enough and doing those things she can then going to formal PT. 3. They would like for her to get a month of physical therapy and then return home. Their hope and expectation is that she will respond to rehab to be back to her baseline status. 4. They would like her resuscitative status to be DO NOT RESUSCITATE. Plan: 1. I will discuss the case with cardiology 2. I will discuss the case with PT and OT 3. POLST form filled out today and has been signed as her designated DPOA. 4. Minced moist diet. Code Status: Do Not Attempt Resuscitation Time spent on advance care plannin minutes
[2024-06-16] MEDS: ATORVASTATIN 40 MG TABLET PO SCH (20:49)
[2024-06-17 05:21] LABS: CALCIUM 9.1 mg/dL (8.5-10.3); CREATININE 0.6 mg/dL (0.6-1.3); MAGNESIUM 1.6 mg/dL (1.7-2.3); PHOSPHORUS 2.1 mg/dL (2.5-5.0); POTASSIUM 4.2 mmol/L (3.5-4.5)
[2024-06-17 05:33] LABS: CALCIUM, IONIZED 1.18 mmol/L (1.15-1.33); VBG PH 7.404 (7.31-7.41)
[2024-06-17 06:40] LABS: BASOPHILS # (AUTO) 0.1 10^3/uL (0.0-0.1); BASOPHILS % (AUTO) 0.3 %; EOSINOPHILS % (AUTO) 0.1 %; HCT - HEMATOCRIT 31.3 % (37.0-47.0); LYMPHOCYTES # (AUTO) 1.3 10^3/uL (1.5-3.5); LYMPHOCYTES % (AUTO) 6.3 %; MEAN CORPUSCULAR HEMOGLOBIN 31.2 pg (27.0-31.0); MEAN CORPUSCULAR HGB CONC 31.9 g/dL (32.0-36.0); MEAN CORPUSCULAR VOLUME 97.5 fL (81.0-99.0); MEAN PLATELET VOLUME 10.2 fL (7.9-10.8); MONOCYTES # (AUTO) 1.5 10^3/uL (0.0-1.0); MONOCYTES % (AUTO) 7.1 %; NEUTROPHILS # (AUTO) 18.1 10^3/uL (1.5-6.6); NEUTROPHILS % (AUTO) 85.6 %; PLT - PLATELET COUNT 196 10^3/uL (130-450); RED BLOOD COUNT 3.21 10^6/uL (4.20-5.40); RED CELL DISTRIBUTION WIDTH 14.3 % (12.0-15.0); WHITE BLOOD COUNT 21.1 x10^3/uL (4.8-10.8)
[2024-06-17] MEDS ORDERED: diltiaZEM INJ 5 MG/ML VIAL IVP PRN (06:42)
[2024-06-17] MEDS: PANTOPRAZOLE 40 MG TABLET PO SCH (06:43)
[2024-06-17 06:49] LABS: DIFFERENTIAL COMMENT MANUAL=AUTO DIFF; PLATELET ESTIMATE, MANUAL NORMAL (130-450,000) (NORMAL); PLATELET MORPHOLOGY NORMAL APPEARANCE (NORMAL); RBC MORPHOLOGY (MULTIPLE) NORMAL APPEARANCE (NORMAL); WBC MORPHOLOGY (MULTIPLE) NORMAL APPEARANCE (NORMAL)
[2024-06-17] MEDS: METOPROLOL SUCCINATE 50 MG TABLET PO SCH (08:29)
[2024-06-17] MEDS: GLIMEPIRIDE 2 MG TABLET PO SCH (08:30)
[2024-06-17] MEDS: MAGNESIUM OXIDE 400 MG TABLET PO SCH (08:31)
[2024-06-17] MEDS: LOSARTAN 50 MG TABLET PO SCH (08:31)
[2024-06-17] MEDS: CHOLECALCIFEROL 400 UNIT TABLET PO SCH (08:32)
[2024-06-17] MEDS: APIXABAN 2.5 MG TABLET PO SCH (08:38)
[2024-06-17] MEDS: SODIUM PHOSPHATE 15 MMOL in SODIUM CHLORIDE 0.9% 250 ML IV ONE ×2 (08:39→18:21)
[2024-06-17] MEDS: FUROSEMIDE 20 MG/2 ML VIAL IVP SCH (08:59)
[2024-06-17 09:36] LABS: ESTIMATED AVERAGE GLUCOSE 194 mg/dL (70-100); HEMOGLOBIN A1c% 8.4 % (4.27-6.07)
[2024-06-17] MEDS: DIGOXIN 500 MCG/2 ML AMP IVP SCH (10:09)
[2024-06-17] MEDS: NEUTRA-PHOS 250 MG TABLET PO SCH (10:46)
[2024-06-17] MEDS: INSULIN LISPRO 300 UNIT/3 ML PEN SUBQ SCH (12:08)
--- NOTE | 2024-06-17 15:56 | PROVIDER PROGRESS NOTE ---
Subjective Prog Note Date Prog Note Date: 06/17/24 Prog Note Time: 15:56 Subjective Pt reports feeling: Improved Subjective: 88-year-old female with a past medical history of pulmonary fibrosis, diabetes mellitus, acute on chronic right sided heart failure, acute on chronic respiratory failure who presents with worsening weakness and functional decline following a recent stay at a fpc facility and was admitted due to acute on chronic respiratory failure with hypoxemia, and atrial fibrillation with RVR. This morning, she says she feels better than yesterday but still feels fatigued with conversation or movements and has been constantly falling asleep through the morning with brief periods of activity. She says she had increased appetite from yesterday and ate all of her breakfast. Her granddaughter was there and said that when she arrived this morning, she had a brief conversation with the patient but shortly after she went back to sleep. She denies any chest pain, fever, chills, and productive cough. Current Medications Current Medications Current Medications: Current Medications Generic Name Dose Route Start Last Admin Trade Name Freq PRN Reason Stop Dose Admin Acetaminophen 650 mg 06/16/24 12:35 Acetaminophen 325 Mg Tablet PO Q6H PRN MILD PAIN OR FEVER Albuterol/Ipratropium 3 ml 06/16/24 13:00 06/17/24 18:23 Ipratropium/Albuterol 3 Ml Neb INH 3 ml RTTID ROX Administration Alendronate Sodium 70 mg 06/21/24 07:00 Alendronate 70 Mg Tablet PO Fr ROX Apixaban 2.5 mg 06/17/24 09:00 06/17/24 08:38 Apixaban 2.5 Mg Tablet PO 2.5 mg DAILY ROX Administration Atorvastatin Calcium 40 mg 06/16/24 21:00 06/16/24 20:49 Atorvastatin 40 Mg Tablet PO 40 mg QPM ROX Administration Benzonatate 100 mg 06/16/24 12:35 Benzonatate 100 Mg Capsule PO TID PRN Cough Cholecalciferol 800 unit 06/17/24 09:00 06/17/24 08:32 Cholecalciferol 400 Unit Tablet PO 800 unit DAILY ROX Administration Digoxin 250 mcg 06/17/24 09:01 06/17/24 15:54 Digoxin 500 Mcg/2 Ml Amp IVP 06/18/24 03:02 250 mcg Q6H ROX Administration Diltiazem HCl 120 mg 06/16/24 14:00 06/17/24 08:32 Diltiazem Cd 120 Mg Capsule PO 120 mg DAILY ROX Administration Furosemide 20 mg 06/17/24 08:00 06/17/24 14:17 Furosemide 20 Mg/2 Ml Vial IVP 20 mg BIDDIURETIC ROX Administration Glimepiride 1 mg 06/17/24 09:00 06/17/24 08:30 Glimepiride 2 Mg Tablet PO 1 mg DAILY ROX Administration Sodium Phosphate 15 mmol/ 255 mls @ 63.75 mls/hr 06/17/24 18:15 06/17/24 18:21 Sodium Chloride IV 06/17/24 22:14 63.75 mls/hr ONCE ONE Administration Protocol Insulin Human Lispro 5 unit 06/16/24 17:00 06/17/24 17:18 Insulin Lispro 300 Unit/3 Ml Pen SUBQ 5 unit TIDWM [facility] Administration Protocol Insulin Human Lispro 3 - 11 unit 06/17/24 12:00 06/17/24 17:18 Insulin Lispro 300 Unit/3 Ml Pen SUBQ 3 unit 0800,1200,1700,2100 [facility] Administration Protocol Losartan Potassium 100 mg 06/17/24 09:00 06/17/24 08:31 Losartan 50 Mg Tablet PO 100 mg DAILY ROX Administration Magnesium Oxide 400 mg 06/17/24 08:00 06/17/24 08:31 Magnesium Oxide 400 Mg Tablet PO 400 mg DAILYWM ROX Administration Metoprolol Succinate 100 mg 06/17/24 09:00 06/17/24 08:29 Metoprolol Succinate 50 Mg Tablet PO 100 mg DAILY [facility] Administration Ondansetron HCl 4 mg 06/16/24 12:35 Ondansetron Odt 4 Mg Tablet TL Q6HR PRN Nausea / Vomiting Ondansetron HCl 4 mg 06/16/24 12:35 Ondansetron 4 Mg/2 Ml Vial IVP Q6HR PRN Nausea / Vomiting Oxycodone HCl 5 mg 06/16/24 12:35 Oxycodone 5 Mg Tablet PO Q4HR PRN Pain 5 to 7 Pantoprazole Sodium 40 mg 06/17/24 07:00 06/17/24 06:43 Pantoprazole 40 Mg Tablet PO 40 mg QDAC [facility] Administration Sodium Chloride 1 gm 06/16/24 14:00 06/17/24 14:23 Sodium Chloride 1 Gm Tablet PO 1 gm TID ROX Administration Sodium Chloride 10 ml 06/16/24 17:00 06/17/24 16:24 Sodium Chloride Flush 0.9% 10 Ml Syringe IVP 10 ml 0100,0900,1700 ROX Administration Sodium Chloride 10 ml 06/16/24 12:35 Sodium Chloride Flush 0.9% 10 Ml Syringe IVP PRN PRN NEEDED PER PROVIDER ORDERS Objective Vital Signs/Intake & Output Reviewed Vital Signs: Yes Vital Signs: Vital Signs Temp Pulse Pulse Resp BP Pulse Ox O2 Flow Rate 06/17/24 18:26 2 06/17/24 18:26 78 22 06/17/24 18:00 101 H 44 H 125/54 L 96 2 06/17/24 17:00 92 H 36 H 122/63 99 2 06/17/24 16:00 36.4 C L 93 H 29 H 111/57 L 98 2 06/17/24 15:54 104 H 06/17/24 15:00 88 107/58 L 97 2 Intake & Output: Intake & Output 06/15/24 06/16/24 06/17/24 06/18/24 05:59 04:59 05:59 05:59 Intake Total 1930 / 1930 595 / 595 Output Total 905 / 905 1585 / 1585 Balance 1025 / 1025 -990 / -990 Weight (kg) 61 kg 61 kg Objective General Appearance: positive No acute distress and Alert Eyes Bilateral: positive Normal inspection, PERRL and EOMI ENT: positive ENT inspection nml, Pharynx nml and No signs of dehydration Neck: positive Nml inspection and No JVD Respiratory: positive Chest non-tender, No respiratory distress and Other (inspiratory crackles bilateral); negative Breath sounds nml Cardiovascular: positive Irregularly irregular, Tachycardia and Diastolic murmur; negative No murmur, No gallop or JVD present Abdomen: positive Non-tender Back: positive Nml inspection Skin: positive Color nml and No rash Extremities: positive Non-tender Neurologic/Psychiatric: positive Oriented x3, CN's nml (2-12), Motor nml, Sensation nml and Weakness Lab Results 06/17/24 04:25 06/17/24 04:25 Other Labs: Lab Results x24hrs 06/17/24 06/17/24 06/17/24 Range/Units 16:46 13:09 11:44 WBC (4.8-10.8) x10^3/uL RBC (4.20-5.40) 10^6/uL Hgb (12.0-16.0) g/dL Hct (37.0-47.0) % MCV (81.0-99.0) fL MCH (27.0-31.0) pg MCHC (32.0-36.0) g/dL RDW (12.0-15.0) % Plt Count (130-450) 10^3/uL MPV (7.9-10.8) fL Neut # (Auto) (1.5-6.6) 10^3/uL Lymph # (Auto) (1.5-3.5) 10^3/uL [place] # (Auto) (0.0-1.0) 10^3/uL Eos # (Auto) (0.0-0.7) 10^3/uL Baso # (Auto) (0.0-0.1) 10^3/uL Absolute Nucleated RBC x10^3/uL Band Neuts % (Manual) Abnorm Lymph % (Manual) Nucleated RBC % /100WBC Neutrophils # (Manual) Lymphocytes # (Manual) Monocytes # (Manual) Eosinophils # (Manual) Basophils # (Manual) Differential Comment WBC Morphology (NORMAL) Platelet Estimate (NORMAL) Platelet Morphology (NORMAL) RBC Morph Micro Appear (NORMAL) VBG pH (7.31-7.41) Ionized Calcium (1.15-1.33) mmol/L Sodium (135-145) mmol/L Potassium (3.5-4.5) mmol/L Chloride (101-111) mmol/L Carbon Dioxide (21-32) mmol/L Anion Gap (6-13) BUN (6-20) mg/dL Creatinine (0.6-1.3) mg/dL Estimated GFR (MDRD) (>89) Glucose (74-104) mg/dL POC Whole Bld Glucose 167 295 (70-100) mg/dL Estimat Average Glucose (70-100) mg/dL Hemoglobin A1c % (4.27-6.07) % Calcium (8.5-10.3) mg/dL Phosphorus 2.1 L (2.5-5.0) mg/dL Magnesium (1.7-2.3) mg/dL B-Natriuretic Peptide (5-100) pg/mL 06/17/24 06/17/24 Range/Units 08:01 04:25 WBC 21.1 H (4.8-10.8) x10^3/uL RBC 3.21 L (4.20-5.40) 10^6/uL Hgb 10.0 L (12.0-16.0) g/dL Hct 31.3 L (37.0-47.0) % MCV 97.5 (81.0-99.0) fL MCH 31.2 H (27.0-31.0) pg MCHC 31.9 L (32.0-36.0) g/dL RDW 14.3 (12.0-15.0) % Plt Count 196 (130-450) 10^3/uL MPV 10.2 (7.9-10.8) fL Neut # (Auto) 18.1 H (1.5-6.6) 10^3/uL Lymph # (Auto) 1.3 L (1.5-3.5) 10^3/uL [place] # (Auto) 1.5 H (0.0-1.0) 10^3/uL Eos # (Auto) 0.0 (0.0-0.7) 10^3/uL Baso # (Auto) 0.1 (0.0-0.1) 10^3/uL Absolute Nucleated RBC 0.00 x10^3/uL Band Neuts % (Manual) Not Reportable Abnorm Lymph % (Manual) Not Reportable Nucleated RBC % 0.0 /100WBC Neutrophils # (Manual) Not Reportable Lymphocytes # (Manual) Not Reportable Monocytes # (Manual) Not Reportable Eosinophils # (Manual) Not Reportable Basophils # (Manual) Not Reportable Differential Comment MANUAL=AUTO DIFF WBC Morphology NORMAL APPEARANCE (NORMAL) Platelet Estimate NORMAL (130-450,000) (NORMAL) Platelet Morphology NORMAL APPEARANCE (NORMAL) RBC Morph Micro Appear NORMAL APPEARANCE (NORMAL) VBG pH 7.404 (7.31-7.41) Ionized Calcium 1.18 (1.15-1.33) mmol/L Sodium 132 L (135-145) mmol/L Potassium 4.2 (3.5-4.5) mmol/L Chloride 98 L (101-111) mmol/L Carbon Dioxide 31 (21-32) mmol/L Anion Gap 3.0 L (6-13) BUN 24 H (6-20) mg/dL Creatinine 0.6 (0.6-1.3) mg/dL Estimated GFR (MDRD) 95 (>89) Glucose 120 H (74-104) mg/dL POC Whole Bld Glucose 229 (70-100) mg/dL Estimat Average Glucose 194 H (70-100) mg/dL Hemoglobin A1c % 8.4 H (4.27-6.07) % Calcium 9.1 (8.5-10.3) mg/dL Phosphorus 2.1 L (2.5-5.0) mg/dL Magnesium 1.6 L (1.7-2.3) mg/dL B-Natriuretic Peptide 249 H (5-100) pg/mL Assessment/Plan Problem List (1) Atrial fibrillation with RVR: Impression: The patient's atrial fibrillation with rapid ventricular response (RVR) continues to be a concern. Plan: Continue inpatient management. Initiate ICU management with Digoxin for rate control, alongside metoprolol as needed for additional rate control. Call Dr. Jeter in the morning for further recommendations and guidance, especially in relation to the ongoing management of atrial fibrillation. (2) New onset of congestive heart failure: Impression: The patient is presenting with signs of CHF and is currently on appropriate medications (furosemide, metoprolol, and losartan). Plan: Continue Furosemide for fluid management, monitoring closely for electrolyte imbalances and renal function. Metoprolol and Losartan will continue as part of the heart failure management regimen. Review of morning labs shows improved chemistry levels and stable blood pressure, which is reassuring. Monitored closely for signs of worsening CHF or fluid retention, and continue adjusting diuretics as needed. (3) Acute on chronic respiratory failure with hypoxemia: Impression: The patient's hypoxemia has improved slightly with oxygen therapy. She has persistent tachypnea and fatigue with minimal exertion. Plan: Continue oxygen therapy at 2L via nasal cannula, as O2 saturation is maintaining in the high 90s through the night and morning. Continue to monitor respiratory rate and oxygen needs. Duoneb treatment given this morning, and the patient tolerated it well, but she still experiences tachypnea (breathing rate in the high 20s to low 30s). Continue close monitoring for worsening fatigue or increased work of breathing. (4) Diabetes mellitus: Impression: Plan: Continue monitoring blood glucose levels and adjust medications as needed. Given the patient's acute condition, ensure she has adequate nutrition and hydration without exacerbating hyperglycemia. No adjustments in insulin therapy are required at this moment. 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 Plan: Oxygen therapy continues at 2L, maintaining high 90s O2 saturation. Monitor closely for tachypnea and fatigue after exertion, as these symptoms are likely due to both pulmonary fibrosis and the ongoing acute respiratory failure. Continue supportive care, considering the advanced nature of her lung disease. (6) Sacral pressure ulcer: Impression: A sacral decubitus ulcer was noted upon admission, despite no previous ulcers. Plan: Wound care was performed by the nursing staff this morning, and the ulcer is being managed with regular dressing changes and pressure relief protocols. Labs showed leukocytosis, though this is more likely related to the physiological stress of the admission rather than an infection of the ulcer. Continue to monitor for signs of infection and ensure adequate nutrition for wound healing. (7) Generalized weakness: Impression: The patient's generalized weakness is likely multifactorial, with deconditioning, cardiopulmonary stress, and her underlying chronic conditions contributing. Plan: Continue to monitor for any changes in functional status, and ensure the patients family is updated on her level of functioning and potential care needs. Discuss potential rehab options or transitioning care to a fpc facility based on her ability to participate in rehabilitation. Physical therapy consult could be considered if the patient's condition improves and she becomes more stable.
[2024-06-18 05:21] LABS: BASOPHILS # (AUTO) 0.1 10^3/uL (0.0-0.1); BASOPHILS % (AUTO) 0.3 %; EOSINOPHILS # (AUTO) 0.1 10^3/uL (0.0-0.7); EOSINOPHILS % (AUTO) 0.3 %; HCT - HEMATOCRIT 31.1 % (37.0-47.0); HGB - HEMOGLOBIN 9.9 g/dL (12.0-16.0); LYMPHOCYTES # (AUTO) 1.3 10^3/uL (1.5-3.5); LYMPHOCYTES % (AUTO) 6.6 %; MEAN CORPUSCULAR HGB CONC 31.8 g/dL (32.0-36.0); MEAN CORPUSCULAR VOLUME 97.5 fL (81.0-99.0); MONOCYTES # (AUTO) 0.9 10^3/uL (0.0-1.0); MONOCYTES % (AUTO) 4.8 %; NEUTROPHILS # (AUTO) 16.5 10^3/uL (1.5-6.6); NEUTROPHILS % (AUTO) 87.4 %; PLT - PLATELET COUNT 180 10^3/uL (130-450); RED BLOOD COUNT 3.19 10^6/uL (4.20-5.40); RED CELL DISTRIBUTION WIDTH 14.1 % (12.0-15.0); WHITE BLOOD COUNT 18.8 x10^3/uL (4.8-10.8)
[2024-06-18 05:32] LABS: CALCIUM 8.5 mg/dL (8.5-10.3); CREATININE 0.6 mg/dL (0.6-1.3); POTASSIUM 3.3 mmol/L (3.5-4.5)
[2024-06-18] MEDS: POTASSIUM CHLORIDE 20 MEQ TABLET PO SCH (09:13)
[2024-06-18] MEDS: ACETAMINOPHEN 325 MG TABLET PO PRN (09:14)
[2024-06-18] MEDS: polyethylene glycoL 3350 17 GM PACKET PO SCH (12:41)
--- NOTE | 2024-06-18 14:03 | PROVIDER PROGRESS NOTE ---
Subjective Subjective Subjective: Patient is a 88 year old female with a history of pulmonary fibrosis, newly diagnosed atrial fibrillation, chronic hyponatremia, and acute urinary retention who initially presented for continued cough and sputum production. She was also hypoxic, and now required 2 L of oxygen. She also went into atrial fibrillation with RVR; she was loaded with digoxin, and this is now controlled. Today, patient is awake and talking. She is alert and oriented x 4. She does state that she gets tired. She states that she feels a little bit better than when she came in, but she is still very weak. She still coughing, but it is improved. She still requiring 2 L of oxygen. She denies any chest pain, palpitations. Current Medications Current Medications Current Medications: Current Medications Generic Name Dose Route Start Last Admin Trade Name Freq PRN Reason Stop Dose Admin Acetaminophen 650 mg 06/16/24 12:35 06/18/24 09:14 Acetaminophen 325 Mg Tablet PO 650 mg Q6H PRN Administration MILD PAIN OR FEVER Albuterol/Ipratropium 3 ml 06/16/24 13:00 06/18/24 13:13 Ipratropium/Albuterol 3 Ml Neb INH 3 ml RTTID ROX Administration Alendronate Sodium 70 mg 06/21/24 07:00 Alendronate 70 Mg Tablet PO Fr ROX Apixaban 2.5 mg 06/17/24 09:00 06/18/24 09:13 Apixaban 2.5 Mg Tablet PO 2.5 mg DAILY ROX Administration Atorvastatin Calcium 40 mg 06/16/24 21:00 06/17/24 20:49 Atorvastatin 40 Mg Tablet PO 40 mg QPM ROX Administration Benzonatate 100 mg 06/16/24 12:35 Benzonatate 100 Mg Capsule PO TID PRN Cough Cholecalciferol 800 unit 06/17/24 09:00 06/18/24 09:14 Cholecalciferol 400 Unit Tablet PO 800 unit DAILY ROX Administration Diltiazem HCl 120 mg 06/16/24 14:00 06/18/24 09:14 Diltiazem Cd 120 Mg Capsule PO 120 mg DAILY ROX Administration Furosemide 20 mg 06/17/24 08:00 06/18/24 06:03 Furosemide 20 Mg/2 Ml Vial IVP 20 mg BIDDIURETIC ROX Administration Glimepiride 1 mg 06/17/24 09:00 06/18/24 09:13 Glimepiride 2 Mg Tablet PO 1 mg DAILY ROX Administration Insulin Human Lispro 5 unit 06/16/24 17:00 06/18/24 12:41 Insulin Lispro 300 Unit/3 Ml Pen SUBQ 5 unit TIDWM ROX Administration Protocol Insulin Human Lispro 3 - 11 unit 06/17/24 12:00 06/18/24 12:42 Insulin Lispro 300 Unit/3 Ml Pen SUBQ 7 unit 0800,1200,1700,2100 [facility] Administration Protocol Losartan Potassium 100 mg 06/17/24 09:00 06/18/24 09:14 Losartan 50 Mg Tablet PO 100 mg DAILY ROX Administration Magnesium Oxide 400 mg 06/17/24 08:00 06/18/24 09:13 Magnesium Oxide 400 Mg Tablet PO 400 mg DAILYWM ROX Administration Metoprolol Succinate 100 mg 06/17/24 09:00 06/18/24 09:14 Metoprolol Succinate 50 Mg Tablet PO 100 mg DAILY ROX Administration Ondansetron HCl 4 mg 06/16/24 12:35 Ondansetron Odt 4 Mg Tablet TL Q6HR PRN Nausea / Vomiting Ondansetron HCl 4 mg 06/16/24 12:35 Ondansetron 4 Mg/2 Ml Vial IVP Q6HR PRN Nausea / Vomiting Oxycodone HCl 5 mg 06/16/24 12:35 Oxycodone 5 Mg Tablet PO Q4HR PRN Pain 5 to 7 Pantoprazole Sodium 40 mg 06/17/24 07:00 06/18/24 06:04 Pantoprazole 40 Mg Tablet PO 40 mg QDAC ROX Administration Polyethylene Glycol 17 gm 06/18/24 11:00 06/18/24 12:41 Polyethylene Glycol 3350 17 Gm Packet PO 17 gm DAILY ROX Administration Sodium Chloride 1 gm 06/16/24 14:00 06/18/24 06:04 Sodium Chloride 1 Gm Tablet PO 1 gm TID ROX Administration Sodium Chloride 10 ml 06/16/24 17:00 06/18/24 09:16 Sodium Chloride Flush 0.9% 10 Ml Syringe IVP 10 ml 0100,0900,1700 ROX Administration Sodium Chloride 10 ml 06/16/24 12:35 Sodium Chloride Flush 0.9% 10 Ml Syringe IVP PRN PRN NEEDED PER PROVIDER ORDERS Objective Vital Signs/Intake & Output Reviewed Vital Signs: Yes Vital Signs: Vital Signs x48h Temp Pulse Pulse Resp BP Pulse Ox O2 Flow Rate 06/18/24 13:14 88 24 2 06/18/24 13:00 87 36 H 111/54 L 98 2 06/18/24 12:00 97.9 F 98 H 24 107/83 97 2 06/18/24 11:00 95 H 33 H 132/59 H 94 2 06/18/24 10:00 95 H 39 H 115/56 L 99 2 06/18/24 09:00 100 H 39 H 116/60 99 2 06/18/24 08:00 98.2 F 101 H 9 L 123/59 L 100 2 06/18/24 07:00 93 H 28 H 125/58 L 99 2 06/18/24 06:13 92 H 20 2 06/18/24 06:13 2 06/18/24 06:00 83 24 117/54 L 96 2 Intake & Output: Intake & Output 06/16/24 06/17/24 06/18/24 06/19/24 04:59 05:59 05:59 05:59 Intake Total 1930 / 1930 950 / 950 360 / 360 Output Total 905 / 905 2095 / 2095 1337 / 1337 Balance 1025 / 1025 -1145 / -1145 -977 / -977 Weight (kg) 61 kg 61 kg 60.5 kg Objective General Appearance: positive No acute distress and Alert Eyes Bilateral: positive Normal inspection ENT: positive ENT inspection nml and Oral lesions Neck: positive Nml inspection Respiratory: positive Chest non-tender and Wheezes Cardiovascular: positive Irregularly irregular and Tachycardia Abdomen: positive Non-tender Back: positive Nml inspection Skin: positive Color nml Extremities: positive Non-tender Neurologic/Psychiatric: positive Oriented x3, CN's nml (2-12), Motor nml and Sensation nml Lab Results 06/18/24 04:43 06/18/24 04:43 Other Labs: Lab Results x24hrs 06/18/24 06/18/24 06/18/24 Range/Units 12:05 08:06 04:43 WBC 18.8 H (4.8-10.8) x10^3/uL RBC 3.19 L (4.20-5.40) 10^6/uL Hgb 9.9 L (12.0-16.0) g/dL Hct 31.1 L (37.0-47.0) % MCV 97.5 (81.0-99.0) fL MCH 31.0 (27.0-31.0) pg MCHC 31.8 L (32.0-36.0) g/dL RDW 14.1 (12.0-15.0) % Plt Count 180 (130-450) 10^3/uL MPV 10.0 (7.9-10.8) fL Neut # (Auto) 16.5 H (1.5-6.6) 10^3/uL Lymph # (Auto) 1.3 L (1.5-3.5) 10^3/uL [place] # (Auto) 0.9 (0.0-1.0) 10^3/uL Eos # (Auto) 0.1 (0.0-0.7) 10^3/uL Baso # (Auto) 0.1 (0.0-0.1) 10^3/uL Absolute Nucleated RBC 0.00 x10^3/uL Nucleated RBC % 0.0 /100WBC Sodium 134 L (135-145) mmol/L Potassium 3.3 L (3.5-4.5) mmol/L Chloride 97 L (101-111) mmol/L Carbon Dioxide 34 H (21-32) mmol/L Anion Gap 3.0 L (6-13) BUN 22 H (6-20) mg/dL Creatinine 0.6 (0.6-1.3) mg/dL Estimated GFR (MDRD) 95 (>89) Glucose 95 (74-104) mg/dL POC Whole Bld Glucose 240 153 (70-100) mg/dL Calcium 8.5 (8.5-10.3) mg/dL Phosphorus (2.5-5.0) mg/dL B-Natriuretic Peptide 434 H (5-100) pg/mL 06/18/24 06/17/24 06/17/24 Range/Units 01:21 16:46 13:09 WBC (4.8-10.8) x10^3/uL RBC (4.20-5.40) 10^6/uL Hgb (12.0-16.0) g/dL Hct (37.0-47.0) % MCV (81.0-99.0) fL MCH (27.0-31.0) pg MCHC (32.0-36.0) g/dL RDW (12.0-15.0) % Plt Count (130-450) 10^3/uL MPV (7.9-10.8) fL Neut # (Auto) (1.5-6.6) 10^3/uL Lymph # (Auto) (1.5-3.5) 10^3/uL [place] # (Auto) (0.0-1.0) 10^3/uL Eos # (Auto) (0.0-0.7) 10^3/uL Baso # (Auto) (0.0-0.1) 10^3/uL Absolute Nucleated RBC x10^3/uL Nucleated RBC % /100WBC Sodium (135-145) mmol/L Potassium (3.5-4.5) mmol/L Chloride (101-111) mmol/L Carbon Dioxide (21-32) mmol/L Anion Gap (6-13) BUN (6-20) mg/dL Creatinine (0.6-1.3) mg/dL Estimated GFR (MDRD) (>89) Glucose (74-104) mg/dL POC Whole Bld Glucose 167 (70-100) mg/dL Calcium (8.5-10.3) mg/dL Phosphorus 3.3 2.1 L (2.5-5.0) mg/dL B-Natriuretic Peptide (5-100) pg/mL Diagnostic Imaging Diagnostic Imaging Results: positive Final report reviewed Diagnostic Imaging Comments: Chest x-ray shows cardiomegaly with interstitial prominence and apparent small pleural effusions. The lung volumes are low. ECHO was reviewed from 05/31 which showed EF of 50 to 55%, mild mitral regurgitation, moderate tricuspid regurgitation. Assessment/Plan Problem List (1) Atrial fibrillation with RVR: Impression: Continue Metoprolol 100 g daily. Continue diltiazem 120 mg once daily for rate control as patient does not have history of heart failure. Patient was loaded with digoxin 250mcg x 4 doses. Today, I will continue 125 mcg daily. Digoxin levels checked - within therapeutic level. Consider anticoagulation but due to a fall risk patient should be placed on at least ASA daily for prevention. HAS-BLED score of 2. (2) New onset of congestive heart failure: Impression: Patient with mildly reduced EF. ECHO was reviewed from 05/31 which showed EF of 50 to 55%, mild mitral regurgitation, moderate tricuspid regurgitation. Continue IV Lasix 20mg BID today; I will change to oral Lasix tomorrow. (3) Acute on chronic respiratory failure with hypoxemia: Impression: Continue on oxygen therapy. She is now on 2 L of oxygen which is her home baseline. (4) Diabetes mellitus: Impression: Sugars between 153-295 in the last 24 hours. A1c of 8.4% on 06/17. Patient currently on glimepiride, insulin sliding scale, insulin 5 units with meals. Consider long-acting insulin; held at this time as patient has very little eating. 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 Continue DuoNebs as needed. (6) Sacral pressure ulcer: Impression: New sacral ulcer found on admission measuring approximately 5 x 4 cm. Continue frequent repositioning. Qualifiers: Pressure injury stage: unspecified pressure injury stage Qualified Code(s): L89.159 - Pressure ulcer of sacral region, unspecified stage (7) Generalized weakness: Impression: Patient with generalized weakness, general decline. PT/OT consulted to see if patient would be a good candidate for rehab. (8) COVID-19: Impression: Patient completed 5 out of 5 days of Remdesivir on 06/02/2024. Completed Decadron course. (9) Urinary retention: Impression: Continue Alvarado, follow up outpatient with Urology. (10) Chronic hyponatremia: Impression: Stable at 134. Continue to monitor and trend. Continue salt tablets, 1gm TID with meals.
[2024-06-19 06:09] LABS: BASOPHILS # (AUTO) 0.1 10^3/uL (0.0-0.1); BASOPHILS % (AUTO) 0.3 %; EOSINOPHILS # (AUTO) 0.1 10^3/uL (0.0-0.7); EOSINOPHILS % (AUTO) 0.5 %; HCT - HEMATOCRIT 33.7 % (37.0-47.0); HGB - HEMOGLOBIN 10.4 g/dL (12.0-16.0); LYMPHOCYTES # (AUTO) 1.3 10^3/uL (1.5-3.5); LYMPHOCYTES % (AUTO) 7.4 %; MEAN CORPUSCULAR HEMOGLOBIN 30.5 pg (27.0-31.0); MEAN CORPUSCULAR HGB CONC 30.9 g/dL (32.0-36.0); MEAN CORPUSCULAR VOLUME 98.8 fL (81.0-99.0); MEAN PLATELET VOLUME 10.2 fL (7.9-10.8); MONOCYTES # (AUTO) 0.8 10^3/uL (0.0-1.0); MONOCYTES % (AUTO) 4.9 %; NEUTROPHILS # (AUTO) 14.9 10^3/uL (1.5-6.6); PLT - PLATELET COUNT 219 10^3/uL (130-450); RED BLOOD COUNT 3.41 10^6/uL (4.20-5.40); RED CELL DISTRIBUTION WIDTH 14.2 % (12.0-15.0); WHITE BLOOD COUNT 17.3 x10^3/uL (4.8-10.8)
[2024-06-19 06:21] LABS: MAGNESIUM 1.4 mg/dL (1.7-2.3)
[2024-06-19 06:25] LABS: CALCIUM 8.8 mg/dL (8.5-10.3); CREATININE 0.6 mg/dL (0.6-1.3); POTASSIUM 4.1 mmol/L (3.5-4.5)
[2024-06-19] MEDS: AMOX/CLAV 875 MG/125 MG TABLET PO SCH (09:17)
[2024-06-19] MEDS: DIGOXIN 125 MCG TABLET PO SCH (09:18)
--- NOTE | 2024-06-19 09:18 | PROVIDER PROGRESS NOTE ---
Documented by User: Gurwinder Locke 06/19/24 11:58 Subjective Prog Note Date Prog Note Date: 06/19/24 Prog Note Time: 09:18 Subjective Pt reports feeling: Worse Subjective: An 88-year-old female with a medical history of newly diagnosed atrial fibrillation, chronic hyponatremia, acute urinary retention, acute on chronic heart failure, chronic respiratory failure with hypoxemia, diabetes mellitus, newly found sacral ulcer found on admission, and pulmonary fibrosis (diagnosed 2 years ago; on home oxygen therapy at 2L-4L) was readmitted 3 days ago due to exacerbation of chronic respiratory failure with hypoxemia and atrial fibrillation with rapid ventricular response with RVR. Today, the patient reports feeling worse than she did yesterday. Both she and her note that yesterday was the best day she has had since her admission in May. She is awake, alert, and oriented to person, place, time, and situation, and is currently requiring 2L of oxygen. The patient is experiencing generalized weakness and pain but denies cough, chest pain, or palpitations. Her is onboard with moving forward with a care plan that includes talking to the hospice care team. Current Medications Current Medications Current Medications: Current Medications Generic Name Dose Route Start Last Admin Trade Name Freq PRN Reason Stop Dose Admin Acetaminophen 650 mg 06/16/24 12:35 06/18/24 14:57 Acetaminophen 325 Mg Tablet PO 650 mg Q6H PRN Administration MILD PAIN OR FEVER Albuterol/Ipratropium 3 ml 06/16/24 13:00 06/19/24 06:13 Ipratropium/Albuterol 3 Ml Neb INH 3 ml RTTID ROX Administration Alendronate Sodium 70 mg 06/21/24 07:00 Alendronate 70 Mg Tablet PO Fr ROX Amoxicillin/Clavulanate Potassium 1 tab 06/19/24 09:00 Amox/Clav 875 Mg/125 Mg Tablet PO 06/24/24 08:59 BID ROX Apixaban 2.5 mg 06/17/24 09:00 06/18/24 09:13 Apixaban 2.5 Mg Tablet PO 2.5 mg DAILY ROX Administration Atorvastatin Calcium 40 mg 06/16/24 21:00 06/18/24 21:28 Atorvastatin 40 Mg Tablet PO 40 mg QPM ROX Administration Benzonatate 100 mg 06/16/24 12:35 Benzonatate 100 Mg Capsule PO TID PRN Cough Cholecalciferol 800 unit 06/17/24 09:00 06/18/24 09:14 Cholecalciferol 400 Unit Tablet PO 800 unit DAILY [facility] Administration Digoxin 125 mcg 06/19/24 09:00 Digoxin 125 Mcg Tablet PO DAILY [facility] Diltiazem HCl 120 mg 06/16/24 14:00 06/18/24 09:14 Diltiazem Cd 120 Mg Capsule PO 120 mg DAILY [facility] Administration Furosemide 20 mg 06/17/24 08:00 06/19/24 06:04 Furosemide 20 Mg/2 Ml Vial IVP 20 mg BIDDIURETIC [facility] Administration Glimepiride 1 mg 06/17/24 09:00 06/18/24 09:13 Glimepiride 2 Mg Tablet PO 1 mg DAILY [facility] Administration Insulin Human Lispro 5 unit 06/16/24 17:00 06/18/24 17:44 Insulin Lispro 300 Unit/3 Ml Pen SUBQ 5 unit TIDWM [facility] Administration Protocol Insulin Human Lispro 3 - 11 unit 06/17/24 12:00 06/18/24 21:28 Insulin Lispro 300 Unit/3 Ml Pen SUBQ 7 unit 0800,1200,1700,2100 [facility] Administration Protocol Losartan Potassium 100 mg 06/17/24 09:00 06/18/24 09:14 Losartan 50 Mg Tablet PO 100 mg DAILY [facility] Administration Magnesium Oxide 400 mg 06/17/24 08:00 06/18/24 09:13 Magnesium Oxide 400 Mg Tablet PO 400 mg DAILYWM [facility] Administration Metoprolol Succinate 100 mg 06/17/24 09:00 06/18/24 09:14 Metoprolol Succinate 50 Mg Tablet PO 100 mg DAILY [facility] Administration Ondansetron HCl 4 mg 06/16/24 12:35 Ondansetron Odt 4 Mg Tablet TL Q6HR PRN Nausea / Vomiting Ondansetron HCl 4 mg 06/16/24 12:35 Ondansetron 4 Mg/2 Ml Vial IVP Q6HR PRN Nausea / Vomiting Oxycodone HCl 5 mg 06/16/24 12:35 Oxycodone 5 Mg Tablet PO Q4HR PRN Pain 5 to 7 Pantoprazole Sodium 40 mg 06/17/24 07:00 06/19/24 07:10 Pantoprazole 40 Mg Tablet PO Not Given QDAC [facility] Polyethylene Glycol 17 gm 06/18/24 11:00 06/18/24 12:41 Polyethylene Glycol 3350 17 Gm Packet PO 17 gm DAILY [facility] Administration Sodium Chloride 1 gm 06/16/24 14:00 06/19/24 06:04 Sodium Chloride 1 Gm Tablet PO 1 gm TID ROX Administration Sodium Chloride 10 ml 06/16/24 17:00 06/19/24 01:00 Sodium Chloride Flush 0.9% 10 Ml Syringe IVP 10 ml 0100,0900,1700 R[facility] Administration Sodium Chloride 10 ml 06/16/24 12:35 Sodium Chloride Flush 0.9% 10 Ml Syringe IVP PRN PRN NEEDED PER PROVIDER ORDERS Trimethoprim/Sulfamethoxazole 1 tab 06/19/24 09:00 Sulfameth/Trimeth Ds 800/160 Mg Tablet PO BID ROX Objective Vital Signs/Intake & Output Reviewed Vital Signs: Yes Vital Signs: Vital Signs x48h Temp Pulse Pulse Resp BP Pulse Ox O2 Flow Rate 06/19/24 08:29 36.5 C 112 H 24 126/71 97 2 06/19/24 06:14 96 H 36 H 2 06/19/24 06:14 2 06/19/24 05:00 36.9 C 107 H 40 H 122/66 99 2 Intake & Output: Intake & Output 06/17/24 06/18/24 06/19/24 06/20/24 05:59 05:59 05:59 05:59 Intake Total 1930 / 1930 950 / 950 600 / 600 Output Total 905 / 905 2095 / 2095 2237 / 2237 275 / 275 Balance 1025 / 1025 -1145 / -1145 -1637 / -1637 -275 / -275 Weight (kg) 61 kg 61 kg 60.5 kg Objective General Appearance: positive No acute distress, Alert and Other (fatigued) Eyes Bilateral: positive Normal inspection, PERRL and EOMI ENT: positive ENT inspection nml and Oral lesions Neck: positive Nml inspection Respiratory: positive Chest non-tender and Other (tachypnea) Cardiovascular: positive Irregularly irregular and Tachycardia Abdomen: positive Non-tender Back: positive Nml inspection Skin: positive Decubitus (5x4 cm sacral ulcer) Extremities: positive Non-tender Neurologic/Psychiatric: positive Oriented x3, CN's nml (2-12) and Motor nml Lab Results 06/19/24 05:44 06/19/24 05:44 Other Labs: Lab Results x24hrs 06/19/24 06/19/24 06/18/24 Range/Units 08:06 05:44 20:30 WBC 17.3 H (4.8-10.8) x10^3/uL RBC 3.41 L (4.20-5.40) 10^6/uL Hgb 10.4 L (12.0-16.0) g/dL Hct 33.7 L (37.0-47.0) % MCV 98.8 (81.0-99.0) fL MCH 30.5 (27.0-31.0) pg MCHC 30.9 L (32.0-36.0) g/dL RDW 14.2 (12.0-15.0) % Plt Count 219 (130-450) 10^3/uL MPV 10.2 (7.9-10.8) fL Neut # (Auto) 14.9 H (1.5-6.6) 10^3/uL Lymph # (Auto) 1.3 L (1.5-3.5) 10^3/uL Overton # (Auto) 0.8 (0.0-1.0) 10^3/uL Eos # (Auto) 0.1 (0.0-0.7) 10^3/uL Baso # (Auto) 0.1 (0.0-0.1) 10^3/uL Absolute Nucleated RBC 0.00 x10^3/uL Nucleated RBC % 0.0 /100WBC Sodium 134 L (135-145) mmol/L Potassium 4.1 (3.5-4.5) mmol/L Chloride 96 L (101-111) mmol/L Carbon Dioxide 36 H (21-32) mmol/L Anion Gap 2.0 L (6-13) BUN 24 H (6-20) mg/dL Creatinine 0.6 (0.6-1.3) mg/dL Estimated GFR (MDRD) 95 (>89) Glucose 237 H (74-104) mg/dL POC Whole Bld Glucose 226 235 (70-100) mg/dL Calcium 8.8 (8.5-10.3) mg/dL Magnesium 1.4 L (1.7-2.3) mg/dL B-Natriuretic Peptide 382 H (5-100) pg/mL Last Dose Date Last Dose Time Digoxin ng/mL 06/18/24 06/18/24 06/18/24 Range/Units 16:31 14:14 12:05 WBC (4.8-10.8) x10^3/uL RBC (4.20-5.40) 10^6/uL Hgb (12.0-16.0) g/dL Hct (37.0-47.0) % MCV (81.0-99.0) fL MCH (27.0-31.0) pg MCHC (32.0-36.0) g/dL RDW (12.0-15.0) % Plt Count (130-450) 10^3/uL MPV (7.9-10.8) fL Neut # (Auto) (1.5-6.6) 10^3/uL Lymph # (Auto) (1.5-3.5) 10^3/uL Overton # (Auto) (0.0-1.0) 10^3/uL Eos # (Auto) (0.0-0.7) 10^3/uL Baso # (Auto) (0.0-0.1) 10^3/uL Absolute Nucleated RBC x10^3/uL Nucleated RBC % /100WBC Sodium (135-145) mmol/L Potassium (3.5-4.5) mmol/L Chloride (101-111) mmol/L Carbon Dioxide (21-32) mmol/L Anion Gap (6-13) BUN (6-20) mg/dL Creatinine (0.6-1.3) mg/dL Estimated GFR (MDRD) (>89) Glucose (74-104) mg/dL POC Whole Bld Glucose 240 240 (70-100) mg/dL Calcium (8.5-10.3) mg/dL Magnesium (1.7-2.3) mg/dL B-Natriuretic Peptide (5-100) pg/mL Last Dose Date UNK Last Dose Time UNK Digoxin 1.0 ng/mL Assessment/Plan Problem List (1) Atrial fibrillation with RVR: Impression: Continue Metoprolol 100 mg, Diltiazem 120 mg PO, and Digoxin 120 mcg PO. Digoxin levels have been checked and are within the therapeutic range. Consider anticoagulation, but given the patients fall risk, initiate at least ASA daily for prevention. The HAS-BLED score is 2. (2) New onset of congestive heart failure: Impression: The patient has a mildly reduced ejection fraction. A review of the 05/31 ECHO showed an EF of 5055%, with mild mitral regurgitation and moderate tricuspid regurgitation. Restart and increase Furosemide to 40 mg IV to improve her fluid retention. (3) Acute on chronic respiratory failure with hypoxemia: Impression: The patient is on 2L O2, which is their baseline. Continue oxygen therapy as prescribed. Increased Furosemide to 40 mg IV to improve her respiratory effort by improving her fluid retention. (4) Diabetes mellitus: Impression: Blood sugars have ranged from 153 to 295 over the past 24 hours, with an A1c of 8.4% on 06/17. This mornings blood sugar was 226. The patient is currently on glimepiride, insulin sliding scale, and 5 units of insulin with meals. Consider starting long-acting insulin, though it is currently held due to the patients limited intake. Qualifiers: Diabetes mellitus complication status: with hyperglycemia Diabetes mellitus nursing home insulin use: without community service organization director use Diabetes mellitus type: t ype 2 Qualified Code(s): E11.65 - Type 2 diabetes mellitus with hyperglycemia (5) Pulmonary fibrosis: Impression: The patient is on home 2L of O2. Continue DuoNebs as needed. Consider a non-invasive airway support (CPAP/BiPAP) to improve respiratory effort. According to the patient's , she has had pulmonary fibrosis for two years. (6) Sacral pressure ulcer: Impression: A new 5x4 cm sacral ulcer was noted upon admission, with malodorous and brown discharge. A wound culture has been ordered. Continue frequent repositioning to prevent further breakdown. Began Augmentin and Bactrim. Qualifiers: Pressure injury stage: unspecified pressure injury stage Qualified Code(s): L89.159 - Pressure ulcer of sacral region, unspecified stage (7) Generalized weakness: Impression: The patient is experiencing generalized weakness and a general decline in condition. Hospice has been consulted to assess whether the patient is a good candidate for hospice care. (8) COVID-19: Impression: The patient completed a 5-day course of Remdesivir on 06/02/2024 and finished the Decadron course. (9) Urinary retention: Impression: Continue the Alvarado catheter, and plan for follow-up with Urology on an outpatient basis. (10) Chronic hyponatremia: Impression: Sodium is stable at 134. Continue monitoring and trending. The patient should continue salt tablets (1 gm TID with meals). (11) Encounter for hospice care: Impression: The care plan was reviewed with the patient and her . The has agreed to consult with the hospice care team, who will not disclose details of the hospice discussion to the patient at this time. After discussion with the hospice care team moving forward, the patient will be placed on hospice care. The , as the medical decision-maker, has consented to this plan but wishes to first discuss it with their children. He is strongly opposed to the idea of the patient returning home, and both he and the patient are experiencing significant stress regarding the decision. Documented by User: Julia Delacruz MD 06/19/24 13:08 Objective Lab Results 06/19/24 05:44 06/19/24 05:44 Assessment/Plan Problem List (1) Atrial fibrillation with RVR: Impression: Continue Metoprolol 100 mg, Diltiazem 120 mg PO, and Digoxin 120 mcg PO. Digoxin levels have been checked and are within the therapeutic range. Consider anticoagulation, but given the patients fall risk, initiate at least ASA daily for prevention. The HAS-BLED score is 2. (2) New onset of congestive heart failure: Impression: The patient has a mildly reduced ejection fraction. A review of the 05/31 ECHO showed an EF of 5055%, with mild mitral regurgitation and moderate tricuspid regurgitation. After speaking with Hospice team, will increase Furosemide to 40 mg IV BID to help with dyspnea. (3) Acute on chronic respiratory failure with hypoxemia: Impression: The patient is on 2L O2, which is their baseline. Continue oxygen therapy as prescribed. Increased Furosemide to 40 mg IV to improve her respiratory effort. Liquid morphine ordered after speaking with Hospice team. (4) Diabetes mellitus: Impression: Blood sugars have ranged from 153 to 295 over the past 24 hours, with an A1c of 8.4% on 06/17. This mornings blood sugar was 226. The patient is currently on glimepiride, insulin sliding scale, and 5 units of insulin with meals. Consider starting long-acting insulin, though it is currently held due to the patients limited intake. Qualifiers: Diabetes mellitus complication status: with hyperglycemia Diabetes mellitus nursing home insulin use: without community service organization director use Diabetes mellitus type: t ype 2 Qualified Code(s): E11.65 - Type 2 diabetes mellitus with hyperglycemia (5) Pulmonary fibrosis: Impression: The patient is on home 2L of O2. Continue DuoNebs as needed. Consider a non-invasive airway support (CPAP/BiPAP) to improve respiratory effort. According to the patient's , she has had pulmonary fibrosis for two years. (6) Sacral pressure ulcer: Impression: A new 5x4 cm sacral ulcer was noted upon admission, with malodorous and brown discharge. A wound culture has been ordered. Continue frequent repositioning to prevent further breakdown. Will start Augmentin and Bactrim today. Qualifiers: Pressure injury stage: unspecified pressure injury stage Qualified Code(s): L89.159 - Pressure ulcer of sacral region, unspecified stage (7) Generalized weakness: Impression: The patient is experiencing generalized weakness and a general decline in condition. Hospice has been consulted to assess whether the patient is a good candidate for hospice care. (8) COVID-19: Impression: The patient completed a 5-day course of Remdesivir on 06/02/2024 and finished the Decadron course. (9) Urinary retention: Impression: Continue the Alvarado catheter, and plan for follow-up with Urology on an outpatient basis. (10) Chronic hyponatremia: Impression: Sodium is stable at 134. Continue monitoring and trending. The patient should continue salt tablets (1 gm TID with meals). (11) Encounter for hospice care:
[2024-06-19] MEDS: oxyCODONE 5 MG TABLET PO PRN (09:19)
[2024-06-19] MEDS: SULFAMETH/TRIMETH DS 800/160 MG TABLET PO SCH (09:19)
[2024-06-19] MEDS: MULTIVITAMIN W/MINERALS TABLET PO SCH (10:49)
[2024-06-19] MEDS: MORPHINE SOL 10 MG/0.5 ML ORAL SYRINGE PO PRN (11:50)
[2024-06-19] MEDS ORDERED: MORPHINE SOL 10 MG/0.5 ML ORAL SYRINGE PO PRN ×3 (13:32→14:45)
[2024-06-19] MEDS ORDERED: MINERAL OIL/PETROLAT OPHTH OINT EACHEYE PRN (13:34)
--- NOTE | 2024-06-19 14:12 | CONSULTATION NOTE ---
Hospice Consultation ([facility]) Hospice Consultation Hospice Consultation Note: Pt seen for GIP eligibility for dyspnea related to pulmonary fibrosis. 88 yo female w/HTN, spinal stenosis causing chronic back pain, osteoarthritis, DM2 (non-insulin requiring), chronic hypoxic respiratory failure and ILD. 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 She was admitted to swing bed status 06/05 d/t ongoing need for COVID isolation and ultimately d/c'd to [facility] 06/07. She did well for the first few days but then developed fatigue, weakness, and anorexia. She returned to the ED on 06/16/24 with increased SOB and a fib w/RVR. She was admitted w/new onset CHF, acute on chronic hypoxic resp failure, and a fib w/RVR. Since admission, she has had ongoing difficulty w/dyspnea which has made it difficult to eat. She denies any signficant cough/sputum production. No chest pain. +Back pain. Oxycodone has been helpful. Anxiety related to dyspnea. Last BM 5 days ago. Usually has several BMs/day. Alvarado cath in place. Yesterday, she had a very good day and reports she was able to eat and did not feel particularly SOB. Overnight, she couldn't sleep d/t dyspnea and today she has continued to be dyspneic all day. Today, spouse requested hospice evaluation. RR has been in the 30s-40s. She has been receiving furosemide 20 mg IV BID x 2 days. Echo done this admission reveals an LVEF 50-55%, mild RVE, mild MR, mod TR, RVSP 57 mm Hg. PMH: ILD (NSIP), Chronic hypoxic Respiratory Failure Pt's spouse reports she was dx'd w/PF 2 yrs ago and has been on O2 since dx. Upon further review, she has had evidence of pulmonary fibrosis on CT in 2017. She underwent PFTs in 2021 that revealed mod-severe restrictive lung disease and severely depressed gas exchange. Echo done at that time revealed normal biventricular function. Ambulatory 6 minute testing revealed room air sats of 86% and she required up to 6lpm to maintain her saturations with activity. She was sent home w/a 5LPM concentrator. Current home O2 is 4lpm. DM2 HTN A fib on eliquis (new dx) Spinal stenosis w/chronic back pain Pulmonary HTN on most recent echo (new dx) Large hiatal hernia (most of stomach is in her chest) Fam Hx: no hereditary lung diseases Soc Hx: social smoking "on and off" ([id number]), x 58 yrs. 4 grown children ([place], [place], and 2 in [place], granddtr in [place]) Exam: Gen-elderly female, laying in bed, Alert and oriented x 3, appears anxious and mildly dyspneic HEENT - NC, face symmetric Chest - tachypneic, Coarse bibasilar crackles, o/w shallow/diminished CV- tachy, irreg irreg Abd- soft, NT/ND, BTx4 Extr- warm, well perfused, no C/C/E Skin-warm/dry Labs: Mg 1.4 Assessment/Plan: 1. ILD (NSIP) w/acute on chronic hypoxic Resp failure Discussed w/pt and spouse a trial of a couple interventions to try to improve dyspnea (brief increase in diuresis to 40 mg IV BID and transition from oxycodone for pain to morphine liquid po for dyspnea and pain). She was receptive. Additionally, she is on 2LPM and her baseline O2 is supposed to be set at 4lpm at rest and up to 6lpm w/activity. Will also switch to an oxymizer to reduce dyspnea. She is presently receiving a PPI and abx. She did receive a 6 day course of dexamethasone when she was admitted w/COVID. Could consider addition of a steroid if she does not have any improvement w/more aggressive treatment of her volume status. 2. A fib w/RVR Presently HR is mildly elevated at 105-109. She is receiving metoprolol, dig, dilt. Her tachycardia is likely physiologic and related to her resp failure at this point. On eliquis anticoagulation. 3. Chronic back pain She is amenable to a trial of morphine as noted. Dispo concerns: She is no longer a candidate for SNF rehab stay. Spouse reports they live in a trailer in [place]. He is having a difficult time w/his own health and doesn't seem able to provide 24/7 care. Doesn't appear to have Medicaid. Will need 24/7 care at home (unsure of family resources to provide this) vs. placement at [facility]. At this time, pt does not meet criteria for a hospice GIP level of care, but certainly meets criteria for hospice admission.
[2024-06-19] MEDS: FUROSEMIDE 40 MG/4 ML VIAL IVP SCH (14:51)
[2024-06-19] MEDS: FUROSEMIDE 20 MG/2 ML VIAL IVP STA (15:39)
[2024-06-19] MEDS: MORPHINE SOL 10 MG/0.5 ML ORAL SYRINGE PO SCH (15:39)
[2024-06-19] MEDS: MAGNESIUM OXIDE 400 MG TABLET PO SCH (20:25)
[2024-06-20 05:42] LABS: BASOPHILS % (AUTO) 0.4 %; HCT - HEMATOCRIT 37.4 % (37.0-47.0); HGB - HEMOGLOBIN 11.4 g/dL (12.0-16.0); LYMPHOCYTES % (AUTO) 5.1 %; MEAN CORPUSCULAR HEMOGLOBIN 30.9 pg (27.0-31.0); MEAN CORPUSCULAR HGB CONC 30.5 g/dL (32.0-36.0); MEAN CORPUSCULAR VOLUME 101.4 fL (81.0-99.0); MEAN PLATELET VOLUME 10.3 fL (7.9-10.8); MONOCYTES % (AUTO) 3.1 %; NEUTROPHILS % (AUTO) 90.3 %; PLT - PLATELET COUNT 242 10^3/uL (130-450); RED BLOOD COUNT 3.69 10^6/uL (4.20-5.40); RED CELL DISTRIBUTION WIDTH 14.2 % (12.0-15.0); WHITE BLOOD COUNT 20.1 x10^3/uL (4.8-10.8)
[2024-06-20 05:47] LABS: ABNORMAL LYMPHS % (MANUAL) 0 %
[2024-06-20 05:56] LABS: CALCIUM 9.5 mg/dL (8.5-10.3); CREATININE 1.2 mg/dL (0.6-1.3); POTASSIUM 5.9 mmol/L (3.5-4.5)
[2024-06-20 06:55] LABS: BAND NEUTROPHILS % (MANUAL) 10 %; DIFFERENTIAL COMMENT MANUAL DIFFERENTIAL; LYMPHOCYTES # (MANUAL) 0.2 10^3/uL (1.5-3.5); LYMPHOCYTES % (MANUAL) 1 %; MONOCYTES # (MANUAL) 0.8 10^3/uL (0.0-1.0); NEUTROPHILS # (MANUAL) 19.1 10^3/uL (1.5-6.6); PLATELET ESTIMATE, MANUAL NORMAL (130-450,000) (NORMAL); PLATELET MORPHOLOGY NORMAL APPEARANCE (NORMAL); RBC MORPHOLOGY (MULTIPLE) NORMAL APPEARANCE (NORMAL); WBC MORPHOLOGY (MULTIPLE) NORMAL APPEARANCE (NORMAL)
[2024-06-20] MEDS: CONCENTRATED ALBUTEROL NEB 2.5 MG/0.5 ML INH STA (07:23)
[2024-06-20 08:08] VITALS: O2SAT 97
[2024-06-20] MEDS: DEXTROSE 50% ABBOJECT 25 GM/50 ML SYRINGE IVP ONE (08:30)
[2024-06-20] MEDS: INSULIN REGULAR, HUMAN 300 UNIT/3 ML PEN IVP ONE (08:31)
[2024-06-20] MEDS ORDERED: HALOPERIDOL 5 MG/ML VIAL IVP PRN (08:51)
[2024-06-20] MEDS ORDERED: LORazepam 2 MG/ML VIAL IVP PRN (08:51)
--- NOTE | 2024-06-20 08:56 | PROVIDER PROGRESS NOTE ---
Subjective Subjective Pt reports feeling: Worse Subjective: Overnight, patient continued to be tachypneic into the high 30s and 40s. Her mentation continues to worsen. She turns towards you at some points, and then is obtunded. This morning, had an extensive conversation with her , Beto. We talked about her goals of care once again. He has opted to place her in hospice care/comfort care. We talked about how with increasing doses of morphine, she will be less and less responsive. He understands that this is the case. He wants her to be comfortable. Current Medications Current Medications Current Medications: Current Medications Generic Name Dose Route Start Last Admin Trade Name Freq PRN Reason Stop Dose Admin Benzonatate 100 mg 06/16/24 12:35 Benzonatate 100 Mg Capsule PO TID PRN Cough Digoxin 125 mcg 06/19/24 09:00 06/20/24 08:36 Digoxin 125 Mcg Tablet PO Not Given DAILY ROX Diltiazem HCl 120 mg 06/16/24 14:00 06/20/24 08:36 Diltiazem Cd 120 Mg Capsule PO Not Given DAILY ROX Furosemide 40 mg 06/19/24 14:00 06/20/24 05:45 Furosemide 40 Mg/4 Ml Vial IVP 40 mg BIDDIURETIC ROX Administration Haloperidol 0.5 mg 06/20/24 08:51 Haloperidol 5 Mg/Ml Vial IVP Q6H PRN Nausea / Vomiting Lorazepam 1 mg 06/20/24 08:51 Lorazepam 2 Mg/Ml Vial IVP Q6H PRN Anxiety/Agitation Morphine Sulfate 2.5 mg 06/19/24 15:00 06/20/24 05:44 Morphine Kathy 10 Mg/0.5 Ml Oral Syringe PO 2.5 mg Q4HR ROX Administration Morphine Sulfate 5 mg 06/19/24 14:45 Morphine Kathy 10 Mg/0.5 Ml Oral Syringe PO Q6H PRN pain/dyspnea Morphine Sulfate 2 mg 06/20/24 08:51 Morphine 2 Mg/Ml Carpuject IVP Q4HR PRN Severe Pain (Level 7-10)/ SOA Multivitamins/Minerals 1 tab 06/19/24 10:00 06/20/24 08:36 Multivitamin W/Minerals Tablet PO Not Given DAILYWM ROX Ondansetron HCl 4 mg 06/16/24 12:35 Ondansetron Odt 4 Mg Tablet TL Q6HR PRN Nausea / Vomiting Ondansetron HCl 4 mg 06/16/24 12:35 Ondansetron 4 Mg/2 Ml Vial IVP Q6HR PRN Nausea / Vomiting Sodium Chloride 10 ml 06/16/24 17:00 06/20/24 08:37 Sodium Chloride Flush 0.9% 10 Ml Syringe IVP 10 ml 0100,0900,1700 ROX Administration Sodium Chloride 10 ml 06/16/24 12:35 Sodium Chloride Flush 0.9% 10 Ml Syringe IVP PRN PRN NEEDED PER PROVIDER ORDERS Objective Vital Signs/Intake & Output Reviewed Vital Signs: Yes Vital Signs: Vital Signs x48h Temp Pulse Pulse Resp BP Pulse Ox O2 Flow Rate 06/20/24 08:07 97.5 F L 123 H 22 118/72 97 5 06/20/24 07:29 124 H 36 H 06/20/24 07:29 6 06/20/24 05:46 6 06/20/24 05:42 44 H 91 L 6 06/20/24 05:42 44 H 89 L 5 06/20/24 05:00 97.7 F 115 H 44 H 82 L 2 06/20/24 01:02 97.5 F L 120 H 44 H 90 L 2 Intake & Output: Intake & Output 06/18/24 06/19/24 06/20/24 06/21/24 05:59 05:59 05:59 05:59 Intake Total 950 / 950 600 / 600 220 / 220 Output Total 2095 / 2095 2237 / 2237 1925 / 1925 Balance -1145 / -1145 -1637 / -1637 -1705 / -1705 Weight (kg) 61 kg 60.5 kg 56 kg Objective General Appearance: positive Severe distress and Anxious Eyes Bilateral: positive Normal inspection, PERRL and EOMI ENT: positive ENT inspection nml and Oral lesions Neck: positive Nml inspection Respiratory: positive Chest non-tender and Other (tachypnea); negative No respiratory distress Cardiovascular: positive Irregularly irregular and Tachycardia Abdomen: positive Non-tender Back: positive Nml inspection Skin: positive Decubitus (5x4 cm sacral ulcer) Extremities: positive Non-tender Neurologic/Psychiatric: positive Disoriented to person, Disoriented to place and Disoriented to time Lab Results 06/20/24 05:21 06/20/24 05:21 Other Labs: Lab Results x24hrs 06/20/24 06/20/24 06/19/24 Range/Units 08:39 05:21 19:25 WBC 20.1 H (4.8-10.8) x10^3/uL RBC 3.69 L (4.20-5.40) 10^6/uL Hgb 11.4 L (12.0-16.0) g/dL Hct 37.4 (37.0-47.0) % MCV 101.4 H (81.0-99.0) fL MCH 30.9 (27.0-31.0) pg MCHC 30.5 L (32.0-36.0) g/dL RDW 14.2 (12.0-15.0) % Plt Count 242 (130-450) 10^3/uL MPV 10.3 (7.9-10.8) fL Neut # (Auto) Not Reportable Lymph # (Auto) Not Reportable [place] # (Auto) Not Reportable Eos # (Auto) Not Reportable Baso # (Auto) Not Reportable Absolute Nucleated RBC Not Reportable Total Counted 100 Band Neuts % (Manual) 10 (0 - 10) % Abnorm Lymph % (Manual) 0 % Nucleated RBC % Not Reportable Neutrophils # (Manual) 19.1 H (1.5-6.6) 10^3/uL Lymphocytes # (Manual) 0.2 L (1.5-3.5) 10^3/uL Monocytes # (Manual) 0.8 (0.0-1.0) 10^3/uL Eosinophils # (Manual) 0.0 (0-0.7) 10^3/uL Basophils # (Manual) 0.0 (0-0.1) 10^3/uL Differential Comment MANUAL DIFFERENTIAL WBC Morphology NORMAL APPEARANCE (NORMAL) Platelet Estimate NORMAL (130-450,000) (NORMAL) Platelet Morphology NORMAL APPEARANCE (NORMAL) RBC Morph Micro Appear NORMAL APPEARANCE (NORMAL) Sodium 136 (135-145) mmol/L Potassium 5.9 H (3.5-4.5) mmol/L Chloride 94 L (101-111) mmol/L Carbon Dioxide 38 H (21-32) mmol/L Anion Gap 4.0 L (6-13) BUN 39 H (6-20) mg/dL Creatinine 1.2 (0.6-1.3) mg/dL Estimated GFR (MDRD) 42 L (>89) Glucose 237 H (74-104) mg/dL POC Whole Bld Glucose 241 110 (70-100) mg/dL Calcium 9.5 (8.5-10.3) mg/dL B-Natriuretic Peptide 396 H (5-100) pg/mL 06/19/24 06/19/24 06/17/24 Range/Units 16:47 11:33 21:47 WBC (4.8-10.8) x10^3/uL RBC (4.20-5.40) 10^6/uL Hgb (12.0-16.0) g/dL Hct (37.0-47.0) % MCV (81.0-99.0) fL MCH (27.0-31.0) pg MCHC (32.0-36.0) g/dL RDW (12.0-15.0) % Plt Count (130-450) 10^3/uL MPV (7.9-10.8) fL Neut # (Auto) Lymph # (Auto) [place] # (Auto) Eos # (Auto) Baso # (Auto) Absolute Nucleated RBC Total Counted Band Neuts % (Manual) (0 - 10) % Abnorm Lymph % (Manual) % Nucleated RBC % Neutrophils # (Manual) (1.5-6.6) 10^3/uL Lymphocytes # (Manual) (1.5-3.5) 10^3/uL Monocytes # (Manual) (0.0-1.0) 10^3/uL Eosinophils # (Manual) (0-0.7) 10^3/uL Basophils # (Manual) (0-0.1) 10^3/uL Differential Comment WBC Morphology (NORMAL) Platelet Estimate (NORMAL) Platelet Morphology (NORMAL) RBC Morph Micro Appear (NORMAL) Sodium (135-145) mmol/L Potassium (3.5-4.5) mmol/L Chloride (101-111) mmol/L Carbon Dioxide (21-32) mmol/L Anion Gap (6-13) BUN (6-20) mg/dL Creatinine (0.6-1.3) mg/dL Estimated GFR (MDRD) (>89) Glucose (74-104) mg/dL POC Whole Bld Glucose 74 333 204 (70-100) mg/dL Calcium (8.5-10.3) mg/dL B-Natriuretic Peptide (5-100) pg/mL 06/16/24 Range/Units 21:51 WBC (4.8-10.8) x10^3/uL RBC (4.20-5.40) 10^6/uL Hgb (12.0-16.0) g/dL Hct (37.0-47.0) % MCV (81.0-99.0) fL MCH (27.0-31.0) pg MCHC (32.0-36.0) g/dL RDW (12.0-15.0) % Plt Count (130-450) 10^3/uL MPV (7.9-10.8) fL Neut # (Auto) Lymph # (Auto) [place] # (Auto) Eos # (Auto) Baso # (Auto) Absolute Nucleated RBC Total Counted Band Neuts % (Manual) (0 - 10) % Abnorm Lymph % (Manual) % Nucleated RBC % Neutrophils # (Manual) (1.5-6.6) 10^3/uL Lymphocytes # (Manual) (1.5-3.5) 10^3/uL Monocytes # (Manual) (0.0-1.0) 10^3/uL Eosinophils # (Manual) (0-0.7) 10^3/uL Basophils # (Manual) (0-0.1) 10^3/uL Differential Comment WBC Morphology (NORMAL) Platelet Estimate (NORMAL) Platelet Morphology (NORMAL) RBC Morph Micro Appear (NORMAL) Sodium (135-145) mmol/L Potassium (3.5-4.5) mmol/L Chloride (101-111) mmol/L Carbon Dioxide (21-32) mmol/L Anion Gap (6-13) BUN (6-20) mg/dL Creatinine (0.6-1.3) mg/dL Estimated GFR (MDRD) (>89) Glucose (74-104) mg/dL POC Whole Bld Glucose 335 (70-100) mg/dL Calcium (8.5-10.3) mg/dL B-Natriuretic Peptide (5-100) pg/mL Assessment/Plan Problem List (1) Encounter for hospice care: Impression: This morning, had an extensive conversation with her , Beto. We talked about her goals of care once again. He has opted to place her in hospice care/comfort care. We talked about how with increasing doses of morphine, she will be less and less responsive. He understands that this is the case. He wants her to be comfortable. Morphine IV ordered for air hunger as patient appears tachypneic and restless, and is not able to swallow the oral morphine solution at this time. (2) Atrial fibrillation with RVR: Impression: Continue Metoprolol 100 mg, Diltiazem 120 mg PO, and Digoxin 120 mcg PO. Digoxin levels have been checked and are within the therapeutic range. Consider anticoagulation, but given the patients fall risk, initiate at least ASA daily for prevention. The HAS-BLED score is 2. (3) New onset of congestive heart failure: Impression: The patient has a mildly reduced ejection fraction. A review of the 05/31 ECHO showed an EF of 5055%, with mild mitral regurgitation and moderate tricuspid regurgitation. After speaking with Hospice team, will increase Furosemide to 40 mg IV BID to help with dyspnea . (4) Acute on chronic respiratory failure with hypoxemia: Impression: The patient is on 5L O2, uptrending. Increased Furosemide to 40 mg IV to improve her respiratory effort. Liquid morphine ordered after speaking with Hospice team. (5) Diabetes mellitus: Impression: Held insulin and sugar checks as patient is now comfort care. Qualifiers: Diabetes mellitus complication status: with hyperglycemia Diabetes mellitus terminal operations supervisor insulin use: without terminal operations supervisor use Diabetes mellitus type: t ype 2 Qualified Code(s): E11.65 - Type 2 diabetes mellitus with hyperglycemia (6) Pulmonary fibrosis: Impression: The patient is requiring increasing amounts of oxygen. Duonebs stopped. Is not a good candidate for CPAP. (7) Sacral pressure ulcer: Impression: A new 5x4 cm sacral ulcer was noted upon admission, with malodorous and brown discharge. A wound culture has been ordered. Holding antibiotics as patient not able to take oral medications. Qualifiers: Pressure injury stage: unspecified pressure injury stage Qualified Code(s): L89.159 - Pressure ulcer of sacral region, unspecified stage (8) Generalized weakness: Impression: The patient is experiencing generalized weakness and a general decline in condition. Patient to be enrolled in Hospice care. (9) COVID-19: Impression: The patient completed a 5-day course of Remdesivir on 06/02/2024 and finished the Decadron course. (10) Urinary retention: Impression: Continue the Alvarado catheter for comfort. (11) Chronic hyponatremia: Impression: Sodium is stable at 134.
[2024-06-20] MEDS: MORPHINE 2 MG/ML CARPUJECT IVP PRN (11:37)
--- NOTE | 2024-06-20 13:52 | Discharge Summary ---
Discharge Summary Admit Date: 06/05/24 Discharge Date: 06/20/24 Discharging Provider: Dr. Julia Delacruz Code Status: Do Not Attempt Resuscitation DIAGNOSES Admission Diagnoses: Atrial fibrillation with RVR New onset of congestive heart failure Acute on chronic respiratory failure with hypoxemia Diabetes mellitus Pulmonary fibrosis Sacral pressure ulcer Generalized weakness Discharge Diagnoses with Status of Each Condition: Encounter for hospice careextensive conversations with , Beto. We talked about goals of care. Opted for comfort care/hospice care early this morning. Patient passed peacefully today at 1:32 PM. Atrial fibrillation with RVRpatient was on metoprolol, diltiazem, digoxin. New onset congestive heart failurepatient was receiving IV Lasix to help symptomatically with her dyspnea. Acute on chronic respiratory failure with hypoxemiawas tachypneic into the 40s, requiring 5 L of oxygen. Was receiving morphine for air hunger. Diabetes mellitusinsulin was held when patient was made hospice care. Pulmonary fibrosiswas on baseline of 2 L of oxygen, increased to 5 L. Sacral pressure ulcer5 x 4 cm sacral ulcer noted upon admission, patient was started initially on Bactrim and Augmentin, but this was discontinued when she could no longer take oral medications. Generalized weaknesspatient was hospice. COVID-19completed a course of remdesivir and Decadron in late May. Urinary retentionFoley catheter was in place for comfort. Chronic hyponatremiasodium was stable, stop trending once patient was made hospice. HPI History of Present Illness: Per Dr. Mcguire: 88 year old female with a past medical history of pulmonary fibrosis, diabetes mellitus, acute on chronic respiratory failure who presents with worsening weakness and functional decline following a recent stay at a [facility] facility and is being admitted due to acute on chronic respiratory failure with hypoxemia, and atrial fibrillation with RVR. She was initially transferred to the nursing facility after a hospitalization here for new-onset atrial fibrillation with RVR and COVID-19. According to her , she seemed stabled the first few days at the nursing facility. However, on Monday approximately 5 days ago, her condition began to deteriorate, and over the past two days she has exhibited increased fatigue, generalized weakness, and decreased appetite; her states she has not had much to eat since she arrived to the nursing facility. New sacral ulcer found on admission measuring approximately 5x4 cm. She denies any pain, cough, fever, or chills. She reports feeling "just weak". Her expressed concerns about her ability to complete the physical therapy at the long term due to how fatigue she gets afterwards and told them to ease up on her. Her is her medical power of substation engineer followed by his daughter Milla as second in line. CONSULTS | PROCEDURES Consultations: Hospice care, social work, PT/OT Procedures: Chest x-ray HOSPITAL COURSE Hospital Course: Patient is a 88-year-old female with a history of pulmonary fibrosis on baseline 2 L of oxygen at home, who presented initially for worsening functional decline at a [facility] facility. She was found to have worsening hypoxemia, as well as atrial fibrillation with RVR. Of note, she was admitted prior to that for COVID-19. During this course of her stay, her oxygen status continued to worsen. She was requiring 5 L. She was also still in A-fib with RVR on 3 different medications. Extensive conversation with about patient's goals of care. She has been dealing with the pulmonary fibrosis for about 2 years. Since her stay for COVID-19, she has progressively gotten worse and more weak. Hospice was also consulted to talk with family about hospice care and comfort care. Patient was tachypneic into the 40s for the last day or so. decided to make patient comfort care this morning. Morphine was ordered as needed. Patient passed peacefully today around 1:32 PM. was informed of her passing. ALLERGIES Allergies Allergy/AdvReac Type Severity Reaction Status Date / Time No Known Drug Allergies Allergy Verified 06/16/24 07:27 MEDICATIONS Ambulatory Orders Medication Instructions Recorded Confirmed alendronate 70 mg tablet 70 mg PO FR 05/28/24 06/16/24 glimepiride 1 mg tablet 1 mg PO DAILY 05/28/24 06/16/24 hydrocodone 5 mg-acetaminophen 325 0.5 - 1 tab PO BID PRN pain 05/28/24 06/16/24 mg tablet losartan 100 mg tablet 100 mg PO DAILY 05/28/24 06/16/24 pantoprazole 40 mg tablet,delayed 40 mg PO DAILY 05/28/24 06/16/24 release acetaminophen 325 mg tablet 650 mg (2 x 325 mg) PO Q6H PRN 06/07/24 06/16/24 pain, fever #30 tabs albuterol sulfate 90 mcg/actuation 2 puff inhalation Q2H PRN sob #6.7 06/07/24 06/16/24 aerosol inhaler (Ventolin HFA) grams aspirin 81 mg tablet,delayed 81 mg PO DAILY #30 tabs 06/07/24 06/16/24 release benzonatate 100 mg capsule 100 mg PO TID PRN Cough #30 caps 06/07/24 06/16/24 cholecalciferol (vitamin D3) 10 800 unit PO DAILY #30 tabs 06/07/24 06/16/24 mcg (400 unit) tablet (Vitamin D3) diltiazem HCl 120 mg 120 mg PO DAILY 30 days #30 caps 06/07/24 06/16/24 capsule,extended release 24 hr guaifenesin 600 mg tablet, 600 mg PO BID #30 tabs 06/07/24 06/16/24 extended release 12 hr (Mucinex) magnesium oxide 400 mg (241.3 mg 400 mg PO DAILYWM #30 tabs 06/07/24 06/16/24 magnesium) tablet metoprolol succinate 50 mg 100 mg (2 x 50 mg) PO DAILY 30 06/07/24 06/16/24 tablet,extended release 24 hr days #60 tabs sodium chloride 1,000 mg soluble 1,000 mg PO TID 30 days #90 tabs 06/07/24 06/16/24 tablet apixaban 2.5 mg tablet 2.5 mg PO DAILY 06/16/24 06/16/24 atorvastatin 40 mg tablet (Lipitor) 40 mg PO QPM 06/16/24 06/16/24 bisacodyl 10 mg rectal suppository 10 mg [place] DAILY PRN constipation 06/16/24 06/16/24 (Dulcolax (bisacodyl)) docusate sodium 100 mg capsule 100 mg PO BID PRN constipation 06/16/24 06/16/24 ipratropium 0.5 mg-albuterol 3 mg 3 ml inhalation TID 06/16/24 06/16/24 (2.5 mg base)/3 mL nebulization soln mineral oil (Fleet Mineral Oil 118 ml [place] DAILY PRN constipation 06/16/24 06/16/24 enema) naloxone 4 mg/actuation nasal 4 mg intranasal ONCE PRN opioid 06/16/24 06/16/24 spray (Rextovy) overdose polyethylene glycol 3350 17 gram 17 g PO DAILY PRN constipation 06/16/24 06/16/24 oral powder packet (ClearLax) sennosides 8.6 mg tablet (senna) 17.2 mg PO DAILY PRN constipation 06/16/24 06/16/24 PHYSICAL EXAM AT DISCHARGE Physical Exam Other/Comments: Patient . LABS 06/20/24 05:21 06/20/24 05:21 DIAGNOSTIC IMAGING Diagnostic Imaging Results: Final report reviewed QUALITY (Female Hip Fx Only) Was patient sent home on osteoporosis medication?: No TIME SPENT Time Spent in Discharge (Minutes): 35 Discharge Plan Discharge Patient Disposition: 20 Print Language: Syriac Date/Time: 06/20/24 13:32
[2024-06-21] MEDS ORDERED: ALENDRONATE 70 MG TABLET PO SCH (07:00)
== END 2024-06-20 13:32 | disposition expired | DRG 189 ==
LOC: ED 07:22 → ICU 12:00 → SUATTDRO 12:00 → ICU 12:02 → MS3 06-18 17:00
PROVIDERS: ADMIT Specialist; ATTEND Internal Medicine
DX: I48.91 Unspecified atrial fibrillation; J84.10 Pulmonary fibrosis, unspecified; M48.00 Spinal stenosis, site unspecified; G93.40 Encephalopathy, unspecified; R33.9 Retention of urine, unspecified; K44.9 Diaphragmatic hernia without obstruction or gangrene; Z20.822 Contact with and (suspected) exposure to COVID-19; E87.1 Hypo-osmolality and hyponatremia; G89.29 Other chronic pain; Z20.828 Contact with and (suspected) exposure to other viral communicable diseases; Z20.818 Contact with and (suspected) exposure to other bacterial communicable diseases; J96.21 Acute and chronic respiratory failure with hypoxia; I25.2 Old myocardial infarction; Z51.5 Encounter for palliative care; Z86.16 Personal history of COVID-19; L89.159 Pressure ulcer of sacral region, unspecified stage; M54.9 Dorsalgia, unspecified; I44.4 Left anterior fascicular block; M19.90 Unspecified osteoarthritis, unspecified site; I08.1 Rheumatic disorders of both mitral and tricuspid valves; Z79.82 Long term (current) use of aspirin; E11.9 Type 2 diabetes mellitus without complications; I50.9 Heart failure, unspecified; I11.0 Hypertensive heart disease with heart failure; Z87.891 Personal history of nicotine dependence; Z79.84 Long term (current) use of oral hypoglycemic drugs; Z79.01 Long term (current) use of anticoagulants; Z79.899 Other long term (current) drug therapy; Z99.81 Dependence on supplemental oxygen